=== PATIENT | female | born 1960 | race Caucasian/White ===

== ENCOUNTER → 2016-05-16 | Outpatient (CLI) | payer MEDICARE, OTHER ==
--- NOTE | 2016-05-16 09:26 | XR ---
EXAMINATION TYPE: XR ankle complete LT DATE OF EXAM: 05/16/2016 9:21 AM COMPARISON: NONE HISTORY: Pain Achilles tendon burning sensation Three views of the ankle demonstrate the ankle mortise to be intact and symmetric. The joint spaces are preserved. The osseous structures are intact. There are plantar calcaneal spurs and a spur at t he insertion of the Achilles tendon. IMPRESSION: 1. Calcaneal spurs as discussed above.
== END | disposition home or self-care (01) ==
LOC: RADXRMAIN 09:10
PROVIDERS: ATTEND Physician Assistant
DX: M77.32 Calcaneal spur, left foot (principal)

== ENCOUNTER → 2016-07-15 | Outpatient (CLI) | payer MEDICARE, OTHER ==
--- NOTE | 2016-07-18 08:35 | MM ---
Reason for exam: screening (asymptomatic). Last mammogram was performed 1 year and 1 month ago. Physical Findings: A clinical breast exam by your physician is recommended on an annual basis and results should be correlated with mammographic findings. MG 3D Screening Mammo W/Cad Bilateral CC and MLO view(s) were taken. Prior study comparison: June 18, 2015, bilateral MG screening mammo w CAD. June 16, 2014, bilateral MG screening mammo w CAD. December 07, 2011, mammogram, performed at [facility]. There are scattered fibroglandular densities. There is no discrete abnormality. ASSESSMENT: Negative, BI-RAD 1 RECOMMENDATION: Routine screening mammogram of both breasts in 1 year.
== END | disposition home or self-care (01) ==
LOC: RADMAMWWP 09:03
PROVIDERS: ATTEND Family Medicine
DX: Z12.31 Encounter for screening mammogram for malignant neoplasm of breast (principal)
CPT/HCPCS: 77063; G0202

== ENCOUNTER → 2016-08-12 | Outpatient (CLI) | payer MEDICARE, OTHER ==
--- NOTE | 2016-08-12 09:00 | CT ---
EXAMINATION TYPE: CT brain wo con DATE OF EXAM: 08/12/2016 8:01 AM COMPARISON: NONE HISTORY: Rt arm tremor CT DLP: 1090.4 mGycm Automated exposure control for dose reduction was used. FINDINGS: There is age-related degenerative change. Central structures are midline. There is no evidence of hydrocephalus. No acute focal lesion, mass ef fect or midline shift is seen. I do not see evidence of intracranial blood. Visualized portions of the paranasal sinuses and mastoids are clear. No depressed skull fracture is s een. IMPRESSION: NO ACUTE INTRACRANIAL ABNORMALITY.
== END | disposition home or self-care (01) ==
LOC: RADCTMAIN 07:36
PROVIDERS: ATTEND Family Medicine
DX: G25.2 Other specified forms of tremor (principal)
CPT/HCPCS: 70450

== ENCOUNTER → 2016-10-20 | Outpatient (CLI) | payer MEDICARE, OTHER ==
--- NOTE | 2016-10-21 07:25 | NM ---
EXAMINATION TYPE: NM DatScan Brain SPECT DATE OF EXAM: 10/20/2016 COMPARISON: CT brain dated 08/12/2016 HISTORY: 56-year-old female with tremors. TECHNIQUE: 10 drops of Lugol's solution was administered 1 hour prior to injection as a thyroid bloc jerry agent. After the administration of 4.71 mCi I-123 Ioflupane DaTscan. Images obtained 3 hours p ost injection. SPECT images of the brain were acquired with axial and coronal reconstructions. FINDINGS: The DaTSCAN demonstrates normal uptake of tracer throughout the striata. Consequently there is no evidence of loss of the presynaptic dopaminergic terminals on this investiga tion. IMPRESSION: Normal examination is against a diagnosis of idiopathic Parkinson's disease or Parkinsonian syndrome and is seen in healthy individuals and also patients with essential tremor, drug-induced Parkinsonism and vascular pseudo-parkinsonism.
== END | disposition home or self-care (01) ==
LOC: RADNMMAIN 09:44
PROVIDERS: ATTEND Psychiatry & Neurology Neurology
DX: G25.0 Essential tremor (principal)
CPT/HCPCS: 78607; A9584

== ENCOUNTER → 2016-10-25 | Outpatient (CLI) | payer MEDICARE, OTHER ==
--- NOTE | 2016-10-25 20:28 | PN ---
DATE OF SERVICE: 10/25/2016 This patient is coming in for an annual check regarding obstructive sleep apnea. She had moderate to severe obstructive sleep apnea with an AHI of 16. The patient was being treated with CPAP at a pressure of 12 cm of water. Note that initially at the time of her diagnosis her weight was 209. She had gained weight, and at one point she was up to 221; this was essentially last year. She is using a Mediterranean diet and she is down to 199 pounds. She is feeling better. She is still using her CPAP. She is compliant. She has been averaging more than 6 hours of CPAP use every night without any complaints or difficulties. No major hypersomnia or sleepiness during the day. She is utilizing a Simplus full-face mask. Alert and awake during the day. Does not fall asleep during day-to-day activities or while driving. Sleep quality remains good. She has no specific complaints. She is obtaining her CPAP supplies on a regular basis through her DME. Her current [place] score is down to 4. Meanwhile, no new-onset medical problems or comorbidities. She was noted to develop some tremors, and she is being considered for primary essential tremors. BP is 145/59, pulse 108, respiration 16, temperature 99.0, saturation 94% on room air. Weight is 199. Height is 5 feet 3 inches. Neck size is 15 inches. GENERAL APPEARANCE: Calm, comfortable. HEENT: Negative for JVD. No goiter or neck mass. LUNGS: Clear to auscultation. Heart sounds are regular rate and rhythm. Normal S1, S2. ABDOMEN: Soft, non-tender. No organomegaly. EXTREMITIES: No edema. No cyanosis or clubbing. IMPRESSION: 1. Obstructive sleep apnea, moderate in severity; AHI of 16; still on CPAP at a pressure of 12 cm of water. 2. Obesity with interval weight loss. Current body weight is down to 199 pounds. 3. Tremors, under investigation. 4. Hyperlipidemia. 5. Chronic hypersomnia, improved. [place] score is down to 4. 6. Chronic depression. 7. Osteoarthritis. PLAN: No need for any adjustments in her CPAP machine. Encourage losing more weight. Target weight is around 170. Continue the same diet. Will hopefully have a reevaluation in a year's time regarding her KATHERYN. MAURI
== END | disposition home or self-care (01) ==
LOC: SLEEP 13:14
PROVIDERS: ATTEND Internal Medicine Critical Care Medicine
DX: G47.33 Obstructive sleep apnea (adult) (pediatric) (principal); E66.9 Obesity, unspecified; E78.5 Hyperlipidemia, unspecified; F32.9 Major depressive disorder, single episode, unspecified; M19.90 Unspecified osteoarthritis, unspecified site; R63.4 Abnormal weight loss

== ENCOUNTER → 2016-12-21 | Outpatient (CLI) | payer MEDICARE, OTHER ==
--- NOTE | 2016-12-21 22:55 | XR ---
EXAMINATION TYPE: XR hand complete LT DATE OF EXAM: 12/21/2016 COMPARISON: NONE HISTORY: 56-year-old female with left hand pain TECHNIQUE: 3 views FINDINGS: Moderate degenerative change at the first CMC joint. Additional degenerative changes at the triscaphe joint with a 3 mm loose body or fragmented spur along the radial aspect of the scaphoid trapezial serenity int. No acute fracture, subluxation, or dislocation. IMPRESSION: Osteoarthritic change at the base of the thumb and in the triscaphe joint. There is either a 3 mm loo se body or fragmented spur here.
== END ==
LOC: RADXRMAIN 16:56
PROVIDERS: ATTEND Family Medicine
DX: M19.042 Primary osteoarthritis, left hand (principal)

== ENCOUNTER → 2017-06-19 | Outpatient (CLI) | payer MEDICARE, OTHER ==
[2017-06-19 10:00] LABS: Basophils % (A) 0 %; Eosinophils # (A) 0.2 k/uL (0-0.7); Eosinophils % (A) 2 %; HCT 44.4 % (34.0-46.0); HGB 14.6 gm/dL (11.4-16.0); Lymphocytes # (A) 2.1 k/uL (1.0-4.8); Lymphocytes % (A) 18 %; MCH 31.2 pg (25.0-35.0); MCHC 32.9 g/dL (31.0-37.0); MCV 94.9 fL (80.0-100.0); Mean Platelet Volume 8.8; Monocytes # (A) 0.6 k/uL (0-1.0); Monocytes % (A) 5 %; Neutrophils # (A) 8.2 k/uL (1.3-7.7); Neutrophils % (A) 73 %; Platelet Count 218 k/uL (150-450); RBC 4.68 m/uL (3.80-5.40); RDW 13.5 % (11.5-15.5); WBC 11.3 k/uL (3.8-10.6)
[2017-06-19 10:18] LABS: ALT 17 U/L (9-52); AST 14 U/L (14-36)
== END | disposition home or self-care (01) ==
LOC: LABWHC1 09:43
PROVIDERS: ATTEND Physician Assistant Medical
DX: L30.1 Dyshidrosis [pompholyx] (principal); B35.1 Tinea unguium
CPT/HCPCS: 36415; 84450; 84460; 85025

== ENCOUNTER → 2017-09-13 | Outpatient (CLI) | payer MEDICARE, OTHER ==
--- NOTE | 2017-09-14 10:33 | MM ---
Reason for exam: screening (asymptomatic). Last mammogram was performed 1 year and 2 months ago. History: Patient is postmenopausal. Physical Findings: A clinical breast exam by your physician is recommended on an annual basis and results should be correlated with mammographic findings. MG 3D Screening Mammo W/Cad Bilateral CC and MLO view(s) were taken. Prior study comparison: July 15, 2016, bilateral MG 3d screening mammo w/cad. June 18, 2015, bilateral MG screening mammo w CAD. There are scattered fibroglandular densities. There is no discrete abnormality. No significant changes when compared with prior studies. ASSESSMENT: Negative, BI-RAD 1 RECOMMENDATION: Routine screening mammogram of both breasts in 1 year.
== END | disposition home or self-care (01) ==
LOC: RADMAMWWP 13:01
PROVIDERS: ATTEND Family Medicine
DX: Z12.31 Encounter for screening mammogram for malignant neoplasm of breast (principal)
CPT/HCPCS: 77063; 77067

== ENCOUNTER 2017-11-07 16:01 | Emergency (ER) | payer MEDICARE, OTHER ==
[2017-11-07 16:20] VITALS: RESP 18
--- NOTE | 2017-11-07 17:55 | ED ---
Extremity Problem HPI - General Chief complaint: Extremity Problem,Nontraumatic Stated complaint: Leg Swelling Time Seen by Provider: 11/07/17 17:13 Source: patient, RN notes reviewed Mode of arrival: ambulatory Limitations: no limitations - History of Present Illness Initial comments: This is a 57-year-old female who presents to the emergency department with chief complaint of right foot and leg swelling. Patient states that 2 days ago she noticed that her right foot was swollen. She states that today she has noticed that the swelling is progressing up her calf. She reports a tightening and pressure-like sensation but denies any pain. She denies any injuries or trauma. She states that she has never had a DVT or pulmonary embolism. She states that she takes a daily baby aspirin, but no blood thinners. Patient denies fevers or chills, chest pain or shortness of breath, abdominal pain, nausea or vomiting. - Related Data Home Medications Medication Instructions Recorded Confirmed Aspirin 81 mg PO DAILY 02/07/14 11/07/17 Simvastatin [Zocor] 20 mg PO HS 02/07/14 11/07/17 Ziprasidone [Geodon] 40 mg PO BID 02/07/14 11/07/17 Cyanocobalamin [Vitamin B-12] 1,000 mcg SQ Q30D 02/01/15 11/07/17 ALPRAZolam [Xanax] 0.5 mg PO DAILY PRN 11/07/17 11/07/17 Albuterol Inhaler [Ventolin Hfa 2 puff INHALATION RT-Q6H PRN 11/07/17 11/07/17 Inhaler] Betamethasone Dipropionate 1 applic TOPICAL DAILY PRN 11/07/17 11/07/17 [Diprolene AF 0.05% Cream] Dicyclomine HCl 20 mg PO BID 11/07/17 11/07/17 Fluticasone/Salmeterol [Advair 1 puff INHALATION RT-BID 11/07/17 11/07/17 250-50 Diskus] Lisinopril [Zestril] 5 mg PO DAILY 11/07/17 11/07/17 Mesalamine [Delzicol] 800 mg PO BID 11/07/17 11/07/17 Omeprazole 40 mg PO DAILY 11/07/17 11/07/17 Propranolol HCl 20 mg PO BID 11/07/17 11/07/17 Terbinafine HCl [LamISIL] 250 mg PO HS 11/07/17 11/07/17 buPROPion HCL [Wellbutrin SR] 200 mg PO BID 11/07/17 11/07/17 lamoTRIgine [LaMICtal] 100 mg PO BID 11/07/17 11/07/17 traZODone HCL 50 mg PO HS 11/07/17 11/07/17 Allergies Allergy/AdvReac Type Severity Reaction Status Date / Time codeine Allergy Rash/Hives Verified 11/07/17 17:07 ibuprofen [From Motrin] Allergy Nausea & Verified 11/07/17 17:07 Vomiting Penicillins Allergy Rash/Hives Verified 11/07/17 17:07 Sulfa (Sulfonamide Allergy Rash/Hives Verified 11/07/17 17:07 Antibiotics) Review of Systems ROS Statement: Those systems with pertinent positive or pertinent negative responses have been documented in the HPI. ROS Other: All systems not noted in ROS Statement are negative. Past Medical History Past Medical History: Asthma, GERD/Reflux, GI Bleed, Sleep Apnea/CPAP/BIPAP Additional Past Medical History / Comment(s): hx internal hemorrhoid. No CPAP machine History of Any Multi-Drug Resistant Organisms: None Reported Past Surgical History: Hysterectomy Past Anesthesia/Blood Transfusion Reactions: No Reported Reaction Past Psychological History: Anxiety, Depression Smoking Status: Current every day smoker Past Alcohol Use History: None Reported Past Drug Use History: None Reported General Exam - General Exam Comments Initial Comments: General: Awake and alert, well-developed; in no apparent distress. HEENT: Head atraumatic, normocephalic. Pupils are equal, round and reactive to light. Extraocular movements intact. Oropharynx moist without erythema or exudate. Neck: Supple. Normal ROM. Cardiovascular: Regular rate and rhythm. No murmurs, rubs or gallops. Chest symmetrical. Respiratory: Lungs clear to auscultation bilaterally. No wheezes, rales or rhonchi. Normal respiratory effort with no use of accessory muscles. Musculoskeletal: Normal range of motion of the right lower extremity. There is 1+ pitting pedal edema with non-pitting swelling noted to the right calf. No erythema, ecchymosis or tenderness on palpation. Negative Homans sign. Left lower extremity appears normal without edema. Sensation is intact. Pedal pulses are 2+ equal and palpable bilaterally. Skin: [place], warm and dry without rashes or lesions. Neurological: Alert and oriented x3. CN II-XII grossly intact. Speech is fluent and answers are appropriate. No focal neuro deficits. Psychiatric: Normal mood and affect. No overt signs of depression or anxiety noted. Limitations: no limitations Course Vital Signs 11/07/17 16:18 Temperature 99.5 F Pulse Rate 94 Respiratory 18 Rate Blood Pressure 137/70 O2 Sat by Pulse 94 L Oximetry Medical Decision Making - Medical Decision Making This is a 57-year-old female who presents to the emergency department with chief complaint of right foot and lower extremity swelling. Patient reports her right foot became swollen 2 days ago and that the swelling has progressively moved up her leg. She reports no pain. She describes the sensation as tight. Denies any injuries or trauma. On physical examination, there is 1+ pitting edema to the foot with mild non-pitting edema to the right calf. No warmth, erythema, tenderness on palpation. Ultrasound venous Doppler duplex revealed no evidence for an acute DVT. Patient denies fevers or chills, chest pain or shortness of breath, abdominal pain. She is recommended to follow -up with her primary care provider for further evaluation. She is in agreement with plan and voices understanding. Vitals are stable and she is in no acute distress. She will be discharged home at this time. All questions answered. Disposition Clinical Impression: Leg edema, right Disposition: HOME SELF-CARE Condition: Good Instructions: Leg Edema (ED) Additional Instructions: Please follow up with primary care provider within 1-2 days. Return to emergency department if symptoms should worsen or any concerns arise. Is patient prescribed a controlled substance at d/c from ED?: No Referrals: None,Stated [Primary Care Provider] - 1-2 days Time of Disposition: 19:36
--- NOTE | 2017-11-07 19:21 | US ---
EXAMINATION TYPE: US venous doppler duplex LE RT DATE OF EXAM: 11/07/2017 6:09 PM COMPARISON: NONE CLINICAL HISTORY: edema, nontraumatic. Right leg edema. SIDE PERFORMED: Right TECHNIQUE: The lower extremity deep venous system is examined utilizing real time linear array sonog ron with graded compression, doppler sonography and color-flow sonography. VESSELS IMAGED: External Iliac Vein (EIV) Common Femoral Vein Deep Femoral Vein Greater Saphenous Vein * Femoral Vein Popliteal Vein Small Saphenous Vein * Proximal Calf Veins (* superficial vessels) FINDINGS: Grayscale, color doppler, spectral doppler imaging performed of the deep veins of the lower extremities. There is normal flow, compressibility, vascular waveforms. IMPRESSION: NEGATIVE FOR DVT RIGHT LOWER EXTREMITY.
[2017-11-07 19:51] VITALS: BP 150/88; PULSE 68; TEMP 98
== END 2017-11-07 19:51 | disposition home or self-care (01) ==
LOC: EC 16:01
DX: R60.0 Localized edema (principal); J45.909 Unspecified asthma, uncomplicated; K21.9 Gastro-esophageal reflux disease without esophagitis; F32.9 Major depressive disorder, single episode, unspecified; F41.9 Anxiety disorder, unspecified; F17.200 Nicotine dependence, unspecified, uncomplicated; Z79.51 Long term (current) use of inhaled steroids; Z79.82 Long term (current) use of aspirin; Z79.899 Other long term (current) drug therapy; Z87.19 Personal history of other diseases of the digestive system; Z88.0 Allergy status to penicillin; Z88.2 Allergy status to sulfonamides; Z88.5 Allergy status to narcotic agent; Z88.6 Allergy status to analgesic agent
CPT/HCPCS: 99283

== ENCOUNTER → 2017-11-15 | Outpatient (CLI) | payer MEDICARE, OTHER ==
--- NOTE | 2017-11-15 16:36 | PN ---
PROGRESS NOTE Velia is coming in for an annual check regarding obstructive sleep apnea. She was diagnosed having mild KATHERYN with an AHI of 16 and she is utilizing a Simplus full face mask. Over the past 1 year the patient remained very compliant with CPAP therapy and she is wearing it every night and she continues to benefit from treatment sleep quality remains good and she is refreshed during the day. Based on the compliancy data that was collected over the past 30 days, her CPAP use for more than 4 hours is 100% of the time. Leak factor is 25 L/minutes. AHI is down to 0.4 while on treatment. She is using a Simplus full face mask. She has absolutely no complaints for now. She is on psychotropic medications. Got bipolar disorder which includes a combination of Geodon and Wellbutrin and Lamictal and Xanax and trazodone. She also has a history of COPD as the patient is chronic smoker. I have taken care of this patient's sister and her mother was Dr. Ko's patient and from complications of COPD. Her weight is down by around 7 pounds. She used to maintain diet and currently she is not doing any dieting and unfortunately she is drinking an excess amount of soda and she has some edema lower extremities bilaterally. REVIEW OF SYSTEMS: 12-point review of system was done. Positive findings are mentioned above history of present illness. No major hypersomnia or sleepiness during the day. Snoring has completely subsided. No restlessness in lower extremities. No nightmares. No sleep paralysis, hallucinations or cataplexy. PHYSICAL EXAMINATION: BP is 140/62, pulse 82, respirations 18, temperature 98.1, saturation 94% on room air. Weight is 192, height is 5 feet 2 inches, [place] score is 5, BMI 34.5. GENERAL APPEARANCE: Calm, comfortable. Head is atraumatic, normocephalic. NECK: Supple. No JVD. No goiter or neck masses. Mallampati class IV. LUNGS: Clear to auscultation. HEART: Sounds are regular. Normal S1, S2. No S3, S4. No murmurs. ABDOMEN: Soft, nontender. No organomegaly. EXTREMITIES: No edema. No cyanosis or clubbing. IMPRESSION: 1. Obstructive sleep apnea [id number], AHI of 16, continues to be under successful treatment. 2. Obesity with interval 7 pounds weight loss. Current weight is down to 192. 3. Chronic obstructive pulmonary disease on Advair. 4. Smoker. 5. Hyperlipidemia. 6. Tremors. 7. Chronic depression. 8. Osteoarthritis. PLAN: Continue CPAP therapy at same level of pressure which is 12 cm of water. Keep the same mask interface, encourage weight loss. See me back in the pulmonary clinic regarding her COPD. MMODL / IJN: [id number] /
== END ==
LOC: SLEEP 14:01
PROVIDERS: ATTEND Internal Medicine Critical Care Medicine
DX: G47.33 Obstructive sleep apnea (adult) (pediatric) (principal); E66.9 Obesity, unspecified; J44.9 Chronic obstructive pulmonary disease, unspecified; E78.5 Hyperlipidemia, unspecified; R25.1 Tremor, unspecified; F32.9 Major depressive disorder, single episode, unspecified; M19.90 Unspecified osteoarthritis, unspecified site; Z87.891 Personal history of nicotine dependence; Z99.89 Dependence on other enabling machines and devices

== ENCOUNTER → 2018-08-02 | Outpatient (CLI) | payer MEDICARE, OTHER ==
[2018-08-02 09:40] LABS: Basophils # (A) 0.1 k/uL (0-0.2); Basophils % (A) 1 %; Eosinophils # (A) 0.1 k/uL (0-0.7); Eosinophils % (A) 1 %; HCT 45.5 % (34.0-46.0); HGB 14.5 gm/dL (11.4-16.0); Lymphocytes # (A) 1.9 k/uL (1.0-4.8); Lymphocytes % (A) 19 %; MCH 31.3 pg (25.0-35.0); MCHC 31.7 g/dL (31.0-37.0); MCV 98.5 fL (80.0-100.0); Mean Platelet Volume 9.3; Monocytes # (A) 0.6 k/uL (0-1.0); Monocytes % (A) 6 %; Neutrophils # (A) 7.3 k/uL (1.3-7.7); Neutrophils % (A) 72 %; Platelet Count 177 k/uL (150-450); RBC 4.62 m/uL (3.80-5.40); RDW 14.2 % (11.5-15.5)
[2018-08-02 16:39] LABS: Albumin 3.6 g/dL (3.80-4.90); Albumin/Globulin Ratio 2.77 (1.60-3.17); Anion Gap 4.2 mmol/L (4.00-12.00); Calcium 8.6 mg/dL (8.7-10.3); Carbon Dioxide 28.8 mmol/L (21.6-31.8); Globulin 1.3 g/dL (1.6-3.3); LDL Cholesterol,Calculated 111.8 mg/dL (0.0-131.0); Potassium 4.4 mmol/L (3.5-5.5); Total Bilirubin 0.3 mg/dL (0.2-1.2); Total Protein 4.9 g/dL (6.2-8.2); VLDL Calculation 28.2 mg/dL (5.00-40.00)
[2018-08-02 16:40] LABS: Vitamin D 25 Hydroxy 35.7 ng/mL (30.0-100.0)
== END | disposition home or self-care (01) ==
LOC: LABWHC1 08:35
PROVIDERS: ATTEND Family Medicine
DX: E78.5 Hyperlipidemia, unspecified (principal); J44.9 Chronic obstructive pulmonary disease, unspecified; E55.9 Vitamin D deficiency, unspecified; E53.8 Deficiency of other specified B group vitamins
CPT/HCPCS: 36415; 80053; 80061; 82306; 82607; 85025

== ENCOUNTER → 2018-10-01 | Outpatient (CLI) | payer MEDICARE, OTHER ==
--- NOTE | 2018-10-02 10:20 | MM ---
Reason for exam: screening (asymptomatic). Last mammogram was performed 1 year and 1 month ago. History: Patient is postmenopausal. Family history of breast cancer in maternal cousin at age 48. Took hormonal contraceptives for 8 years. Physical Findings: A clinical breast exam by your physician is recommended on an annual basis and results should be correlated with mammographic findings. MG 3D Screening Mammo W/Cad Bilateral CC and MLO view(s) were taken. Prior study comparison: September 13, 2017, bilateral MG 3d screening mammo w/cad. July 15, 2016, bilateral MG 3d screening mammo w/cad. There are scattered fibroglandular densities. There is no discrete abnormality. ASSESSMENT: Negative, BI-RAD 1 RECOMMENDATION: Routine screening mammogram of both breasts in 1 year.
== END | disposition home or self-care (01) ==
LOC: RADMAMWWP 08:03
PROVIDERS: ATTEND Family Medicine
DX: Z12.31 Encounter for screening mammogram for malignant neoplasm of breast (principal)
CPT/HCPCS: 77063; 77067

== ENCOUNTER → 2019-02-13 | Outpatient (CLI) | payer MEDICARE, OTHER ==
[2019-02-13 09:12] LABS: Basophils # (A) 0.1 k/uL (0-0.2); Basophils % (A) 1 %; Eosinophils # (A) 0.1 k/uL (0-0.7); Eosinophils % (A) 2 %; HCT 44.8 % (34.0-46.0); HGB 14.2 gm/dL (11.4-16.0); Lymphocytes # (A) 2.4 k/uL (1.0-4.8); Lymphocytes % (A) 25 %; MCH 31.6 pg (25.0-35.0); MCHC 31.8 g/dL (31.0-37.0); Mean Platelet Volume 8.1; Monocytes # (A) 0.6 k/uL (0-1.0); Monocytes % (A) 6 %; Neutrophils # (A) 6.1 k/uL (1.3-7.7); Neutrophils % (A) 65 %; Platelet Count 197 k/uL (150-450); RDW 13.7 % (11.5-15.5); WBC 9.4 k/uL (3.8-10.6)
[2019-02-13 09:31] LABS: MCV 99.5 fL (80.0-100.0)
[2019-02-13 16:28] LABS: African American GFR (CKD) 71.4 (60.0-200.0); Albumin 3.6 g/dL (3.80-4.90); Albumin/Globulin Ratio 2.57 (1.60-3.17); Anion Gap 5.2 mmol/L (4.00-12.00); Calcium 9.2 mg/dL (8.7-10.3); Carbon Dioxide 27.8 mmol/L (21.6-31.8); Chol/HDL Ratio 7.04; Globulin 1.4 g/dL (1.6-3.3); LDL Cholesterol,Calculated 110.8 mg/dL (0.0-131.0); Non-African American GFR(CKD) 61.6 (60.0-200.0); Potassium 4.9 mmol/L (3.5-5.5); Total Bilirubin 0.3 mg/dL (0.2-1.2); VLDL Calculation 58.2 mg/dL (5.00-40.00)
== END | disposition home or self-care (01) ==
LOC: LABWHC1 07:04
PROVIDERS: ATTEND Family Medicine
DX: E53.8 Deficiency of other specified B group vitamins (principal); E78.5 Hyperlipidemia, unspecified; D69.2 Other nonthrombocytopenic purpura
CPT/HCPCS: 36415; 80053; 80061; 82607; 84443; 85025

== ENCOUNTER 2019-05-11 19:50 | Emergency (ER) | payer MEDICARE, OTHER ==
[2019-05-11] MEDS ORDERED: SODIUM CHLORIDE 0.9% 500 ML 500 ML IV STA (20:46)
[2019-05-11] MEDS ORDERED: LORazepam 2 MG/ML INJ IV STA (20:46)
[2019-05-11] MEDS ORDERED: METOPROLOL SUCCINATE (ER) 25 MG TAB.ER.24H PO STA (20:47)
--- NOTE | 2019-05-11 20:51 | ED ---
General Adult HPI - General Chief complaint: Arrhythmia/Palpitations Stated complaint: Tachycardia Time Seen by Provider: 05/11/19 20:34 Source: patient Mode of arrival: wheelchair Limitations: no limitations - History of Present Illness Initial comments: Patient presents the ED stating that she ran out of her propanolol 2 days ago, and she states that she has had an elevated heart rate since then. Patient states that she was taking propanolol 20 mg BID for tremors. Patient states that she only knows that her heart rate is elevated because of readings on her blood pressure machine. Patient also states that she had an elevated systolic blood pressure reading (in the 160's) 2 days ago. Patient admits to feeling anxious and "shaky". Patient denies having any other symptoms or complaints. Patient denies fever, headache, focal numbness/weakness/neuro deficit, visual changes, speech problems, dizziness, chest pain, dyspnea, palpitations, abd ominal pain, nausea/vomiting/diarrhea, dysuria or urinary symptoms, leg or calf swelling or pain, or any other symptoms or complaints. Patient denies EtOH or drug abuse. - Related Data Home Medications Medication Instructions Recorded Confirmed Aspirin 81 mg PO DAILY 02/07/14 11/07/17 Simvastatin [Zocor] 20 mg PO HS 02/07/14 11/07/17 Ziprasidone [Geodon] 40 mg PO BID 02/07/14 11/07/17 Cyanocobalamin [Vitamin B-12] 1,000 mcg SQ Q30D 02/01/15 11/07/17 ALPRAZolam [Xanax] 0.5 mg PO DAILY PRN 11/07/17 11/07/17 Albuterol Inhaler [Ventolin Hfa 2 puff INHALATION RT-Q6H PRN 11/07/17 11/07/17 Inhaler] Betamethasone Dipropionate 1 applic TOPICAL DAILY PRN 11/07/17 11/07/17 [Diprolene AF 0.05% Cream] Dicyclomine HCl 20 mg PO BID 11/07/17 11/07/17 Fluticasone/Salmeterol [Advair 1 puff INHALATION RT-BID 11/07/17 11/07/17 250-50 Diskus] Lisinopril [Zestril] 5 mg PO DAILY 11/07/17 11/07/17 Mesalamine [Delzicol] 800 mg PO BID 11/07/17 11/07/17 Omeprazole 40 mg PO DAILY 11/07/17 11/07/17 Propranolol HCl 20 mg PO BID 11/07/17 11/07/17 Terbinafine HCl [LamISIL] 250 mg PO HS 11/07/17 11/07/17 buPROPion HCL [Wellbutrin SR] 200 mg PO BID 11/07/17 11/07/17 lamoTRIgine [LaMICtal] 100 mg PO BID 11/07/17 11/07/17 traZODone HCL 50 mg PO HS 11/07/17 11/07/17 Allergies Allergy/AdvReac Type Severity Reaction Status Date / Time Penicillins Allergy Rash/Hives Verified 11/07/17 17:07 Sulfa (Sulfonamide Allergy Rash/Hives Verified 11/07/17 17:07 Antibiotics) codeine AdvReac Nausea & Verified 05/11/19 20:06 Vomiting ibuprofen [From Motrin] AdvReac Nausea & Verified 05/11/19 20:06 Vomiting Review of Systems ROS Statement: Those systems with pertinent positive or pertinent negative responses have been documented in the HPI. ROS Other: All systems not noted in ROS Statement are negative. Past Medical History Past Medical History: Asthma, GERD/Reflux, GI Bleed, Hyperlipidemia, Sleep Apnea/CPAP/BIPAP Additional Past Medical History / Comment(s): hx internal hemorrhoid. No CPAP machine. colitis, IBS History of Any Multi-Drug Resistant Organisms: None Reported Past Surgical History: Hysterectomy Past Anesthesia/Blood Transfusion Reactions: No Reported Reaction Past Psychological History: Anxiety, Bipolar, Depression Smoking Status: Current every day smoker Past Alcohol Use History: None Reported Past Drug Use History: None Reported General Exam Limitations: no limitations General appearance: alert, in no apparent distress Head exam: Present: atraumatic, normocephalic Eye exam: Present: normal appearance, PERRL, EOMI ENT exam: Present: mucous membranes moist Neck exam: Present: other (Trachea is in midline). Absent: tenderness Respiratory exam: Present: normal lung sounds bilaterally. Absent: respiratory distress, wheezes, rales, rhonchi Cardiovascular Exam: Present: normal rhythm, tachycardia, normal heart sounds, other (Normal radial pulses bilaterally) GI/Abdominal exam: Present: soft. Absent: distended, tenderness Extremities exam: Present: other (Negative Dangelo's sign bilaterally). Absent: tenderness, pedal edema, calf tenderness Neurological exam: Present: alert, oriented X3, CN II-XII intact. Absent: motor sensory deficit Psychiatric exam: Present: anxious Skin exam: Present: warm, dry, intact, normal color Course Vital Signs 05/11/19 05/11/19 05/11/19 20:04 20:33 21:00 Temperature 98.3 F Pulse Rate 127 H 126 H 126 H Respiratory 18 Rate Blood Pressure 150/73 142/63 137/70 O2 Sat by Pulse 94 L 96 91 L Oximetry 05/11/19 05/11/19 05/11/19 21:20 21:30 21:40 Temperature Pulse Rate 124 H 122 H 120 H Respiratory Rate Blood Pressure 141/109 131/62 131/62 O2 Sat by Pulse 95 95 93 L Oximetry 05/11/19 05/11/19 21:50 22:31 Temperature Pulse Rate 116 H 112 H Respiratory 20 Rate Blood Pressure 120/67 112/87 O2 Sat by Pulse 92 L 99 Oximetry - Reevaluation(s) Reevaluation #1: 05/11/19 23:07 Patient's heart rate has now improved to the 110s. Patient denies development of any new symptoms while in the ED, and she continues to state that she feels "fine". Patient remains alert and breathing comfortably with a normal oxygen saturation. Patient states that her heart rate is normally in the low 100s. Thong maddox is aware of her test results, and she feels comfortable going home at this time. EKG Findings - EKG Comments: EKG Findings:: Sinus tachycardia, ventricular rate of 121 bpm, normal SC and QRS intervals, normal QT interval, no ectopy, leftward axis, no ST or T-wave abnormality Medical Decision Making - Medical Decision Making Patient reports that her elevated heart rate began after she abruptly stopped taking her propanolol secondary to running out of it. I suspect that the patient's elevated heart rate is likely secondary to beta tyler withdrawal. Patient was given a dose of oral metoprolol while in the ED. Patient's labs are fairly unremarkable. I will provide the patient with a prescription for 1 week's worth of her propanolol, and she states that she will be certain to follow-up with her primary care provider early next week. Patient was counseled about sinus tachycardia, and she was clearly explained return and follow-up instructions. She was instructed to follow up closely with her primary care provider. She feels comfortable with this plan. - Lab Data Result diagrams: 05/11/19 20:31 05/11/19 20:31 Lab Results 05/11/19 05/11/19 05/11/19 Range/Units 20:31 20:31 20:31 WBC 11.9 H (3.8-10.6) k/uL RBC 4.87 (3.80-5.40) m/uL Hgb 14.9 (11.4-16.0) gm/dL Hct 46.2 H (34.0-46.0) % MCV 94.9 (80.0-100.0) fL MCH 30.6 (25.0-35.0) pg MCHC 32.3 (31.0-37.0) g/dL RDW 13.5 (11.5-15.5) % Plt Count 251 (150-450) k/uL Neutrophils % 63 % Lymphocytes % 26 % Monocytes % 7 % Eosinophils % 1 % Basophils % 0 % Neutrophils # 7.5 (1.3-7.7) k/uL Lymphocytes # 3.2 (1.0-4.8) k/uL Monocytes # 0.9 (0-1.0) k/uL Eosinophils # 0.1 (0-0.7) k/uL Basophils # 0.0 (0-0.2) k/uL PT 10.4 (9.0-12.0) sec INR 1.0 (<1.2) APTT 22.9 (22.0-30.0) sec Sodium 136 L (137-145) mmol/L Potassium 4.4 (3.5-5.1) mmol/L Chloride 107 (98-107) mmol/L Carbon Dioxide 24 (22-30) mmol/L Anion Gap 5 mmol/L BUN 11 (7-17) mg/dL Creatinine 1.03 (0.52-1.04) mg/dL Est GFR (CKD-EPI)AfAm 69 (>60 ml/min/1.73 sqM) Est GFR (CKD-EPI)NonAf 60 (>60 ml/min/1.73 sqM) Glucose 119 H (74-99) mg/dL Calcium 9.0 (8.4-10.2) mg/dL Magnesium 1.6 (1.6-2.3) mg/dL Total Bilirubin 0.8 (0.2-1.3) mg/dL AST 23 (14-36) U/L ALT 9 (4-34) U/L Alkaline Phosphatase 57 (38-126) U/L Troponin I (0.000-0.034) ng/mL Total Protein 6.0 L (6.3-8.2) g/dL Albumin 3.5 (3.5-5.0) g/dL TSH 1.710 (0.465-4.680) mIU/L 05/11/19 Range/Units 20:31 WBC (3.8-10.6) k/uL RBC (3.80-5.40) m/uL Hgb (11.4-16.0) gm/dL Hct (34.0-46.0) % MCV (80.0-100.0) fL MCH (25.0-35.0) pg MCHC (31.0-37.0) g/dL RDW (11.5-15.5) % Plt Count (150-450) k/uL Neutrophils % % Lymphocytes % % Monocytes % % Eosinophils % % Basophils % % Neutrophils # (1.3-7.7) k/uL Lymphocytes # (1.0-4.8) k/uL Monocytes # (0-1.0) k/uL Eosinophils # (0-0.7) k/uL Basophils # (0-0.2) k/uL PT (9.0-12.0) sec INR (<1.2) APTT (22.0-30.0) sec Sodium (137-145) mmol/L Potassium (3.5-5.1) mmol/L Chloride (98-107) mmol/L Carbon Dioxide (22-30) mmol/L Anion Gap mmol/L BUN (7-17) mg/dL Creatinine (0.52-1.04) mg/dL Est GFR (CKD-EPI)AfAm (>60 ml/min/1.73 sqM) Est GFR (CKD-EPI)NonAf (>60 ml/min/1.73 sqM) Glucose (74-99) mg/dL Calcium (8.4-10.2) mg/dL Magnesium (1.6-2.3) mg/dL Total Bilirubin (0.2-1.3) mg/dL AST (14-36) U/L ALT (4-34) U/L Alkaline Phosphatase (38-126) U/L Troponin I <0.012 (0.000-0.034) ng/mL Total Protein (6.3-8.2) g/dL Albumin (3.5-5.0) g/dL TSH (0.465-4.680) mIU/L - Radiology Data Radiology results: image reviewed (Chest x-ray is negative) Disposition Clinical Impression: Sinus tachycardia Narrative: Suspected medication withdrawal Disposition: HOME SELF-CARE Condition: Stable Instructions (If sedation given, give patient instructions): Heart Palpitations (ED) Additional Instructions: Return to the ER immediately should you develop any significant pain, a fever, chest pain, shortness of breath, vomiting, feeling dizzy or faint, or new or worsening symptoms. Follow up closely with your primary care provider. Is patient prescribed a controlled substance at d/c from ED?: No Referrals: Amol Orellana [Primary Care Provider] - 1-2 days Time of Disposition: 23:11
--- NOTE | 2019-05-11 21:07 | XR ---
EXAMINATION TYPE: XR chest 2V DATE OF EXAM: 05/11/2019 COMPARISON: 12/26/2017 HISTORY: Short of breath Dysrhythmia TECHNIQUE: FINDINGS: There is small linear density in both lung mandel. Heart is normal. Lungs are clear of infi ltrate. There is no pleural effusion. There is no heart failure. There are chest leads. IMPRESSION: Bilateral subsegmental atelectasis unchanged. Normal heart.
[2019-05-11 21:08] LABS: Basophils % (A) 0 %; Eosinophils # (A) 0.1 k/uL (0-0.7); Eosinophils % (A) 1 %; HCT 46.2 % (34.0-46.0); HGB 14.9 gm/dL (11.4-16.0); Lymphocytes # (A) 3.2 k/uL (1.0-4.8); Lymphocytes % (A) 26 %; MCH 30.6 pg (25.0-35.0); MCHC 32.3 g/dL (31.0-37.0); MCV 94.9 fL (80.0-100.0); Mean Platelet Volume 10.4; Monocytes # (A) 0.9 k/uL (0-1.0); Monocytes % (A) 7 %; Neutrophils # (A) 7.5 k/uL (1.3-7.7); Neutrophils % (A) 63 %; Platelet Count 251 k/uL (150-450); RBC 4.87 m/uL (3.80-5.40); RDW 13.5 % (11.5-15.5); WBC 11.9 k/uL (3.8-10.6)
[2019-05-11 21:21] LABS: Albumin 3.5 g/dL (3.5-5.0); Magnesium 1.6 mg/dL (1.6-2.3); Potassium 4.4 mmol/L (3.5-5.1); Total Bilirubin 0.8 mg/dL (0.2-1.3)
[2019-05-11 21:30] LABS: Partial Thromboplastin Time 22.9 sec (22.0-30.0); Prothrombin Time 10.4 sec (9.0-12.0)
[2019-05-11 23:46] VITALS: BP 114/61; PULSE 110; RESP 16; TEMP 98.1
== END 2019-05-11 23:30 | disposition home or self-care (01) ==
LOC: EC 19:50
DX: R00.0 Tachycardia, unspecified (principal); R00.2 Palpitations; E78.5 Hyperlipidemia, unspecified; G47.30 Sleep apnea, unspecified; J45.909 Unspecified asthma, uncomplicated; K21.9 Gastro-esophageal reflux disease without esophagitis; F41.9 Anxiety disorder, unspecified; F31.9 Bipolar disorder, unspecified; F17.200 Nicotine dependence, unspecified, uncomplicated; Z79.51 Long term (current) use of inhaled steroids; Z79.82 Long term (current) use of aspirin; Z79.899 Other long term (current) drug therapy; Z88.0 Allergy status to penicillin; Z88.2 Allergy status to sulfonamides; Z88.5 Allergy status to narcotic agent; Z88.6 Allergy status to analgesic agent
CPT/HCPCS: 36415; 71046; 80053; 83735; 84443; 84484; 85025; 85610; 85730; 93005; 99285

== ENCOUNTER → 2020-07-20 | Outpatient (CLI) | payer MEDICARE, OTHER ==
--- NOTE | 2020-07-20 12:44 | ECHOF ---
Referral Reason: MEASUREMENTS -------- HEIGHT: 157.5 cm WEIGHT: 95.3 kg BP: RVIDd: 2.6 cm (< 3.3) IVSd: 1.2 cm (0.6 - 1.1) LVIDd: 4.8 cm (3.9 - 5.3) LVPWd: 1.4 cm (0.6 - 1.1) IVSs: 1.9 cm LVIDs: 2.4 cm LVPWs: 2.2 cm LAESV Index (A-L): 18.32 ml/m Ao Diam: 3.5 cm (2.0 - 3.7) AV Cusp: 2.3 cm (1.5 - 2.6) LA Diam: 3.8 cm (2.7 - 3.8) MV EXCURSION: 24.295 mm (> 18.000) MV EF SLOPE: 56 mm/s (70 - 150) EPSS: 1.1 cm MV E Thomas: 0.74 m/s MV DecT: 307 ms MV A Thomas: 1.08 m/s MV E/A Ratio: 0.68 AR PHT: 507 ms RAP: 5.00 mmHg RVSP: 16.22 mmHg FINDINGS -------- This was a technically good study. The left ventricular size is normal. There is mild concentric left ventricular hypertrophy. Overa ll left ventricular systolic function is normal with, an EF between 55 - 60 %. The diastolic fillin g pattern is normal for the age of the patient 10.38. The right ventricle is normal in size. The left atrial size is normal. Normal LA size by volume 22+/-6 ml/m2. The right atrial size is normal. The aortic valve is trileaflet and appears structurally normal. The mitral valve is normal. Mild mitral regurgitation is present. The tricuspid valve appears structurally normal. Mild tricuspid regurgitation present. Right vent ricular systolic pressure is normal at < 35 mmHg. There is no pulmonic regurgitation present. The aortic root size is normal. Normal inferior vena cava with normal inspiratory collapse consistent with estimated right atrial pre ssure of 5 mmHg. There is no pericardial effusion. CONCLUSIONS -------- 1. The left ventricular size is normal. 2. There is mild concentric left ventricular hypertrophy. 3. Overall left ventricular systolic function is normal with, an EF between 55 - 60 %. 4. The diastolic filling pattern is normal for the age of the patient 10.38 5. Mild mitral regurgitation is present. 6. Mild tricuspid regurgitation present. 7. There is no pericardial effusion. [employer] MANAGER: Chichi Daniels RDCS
== END | disposition home or self-care (01) ==
LOC: RADECHMAIN 11:06
PROVIDERS: ATTEND Family Medicine
DX: I08.1 Rheumatic disorders of both mitral and tricuspid valves (principal)
CPT/HCPCS: 93306

== ENCOUNTER → 2021-02-25 | Outpatient (CLI) | payer MEDICARE, OTHER ==
--- NOTE | 2021-02-26 13:53 | MM ---
Reason for exam: screening (asymptomatic). Last mammogram was performed 2 years and 5 months ago. History: Patient is postmenopausal. Family history of breast cancer in maternal cousin at age 48. Took hormonal contraceptives for 8 years. Physical Findings: A clinical breast exam by your physician is recommended on an annual basis and results should be correlated with mammographic findings. MG 3D Screening Mammo W/Cad Bilateral CC and MLO view(s) were taken. Prior study comparison: October 01, 2018, bilateral MG 3d screening mammo w/cad. September 13, 2017, bilateral MG 3d screening mammo w/cad. There are scattered fibroglandular densities. There is no discrete abnormality. No significant changes when compared with prior studies. ASSESSMENT: Negative, BI-RAD 1 RECOMMENDATION: Routine screening mammogram of both breasts in 1 year.
== END | disposition home or self-care (01) ==
LOC: RADMAMWWP 06:57
PROVIDERS: ATTEND Family Medicine
DX: Z12.31 Encounter for screening mammogram for malignant neoplasm of breast (principal); Z78.0 Asymptomatic menopausal state; Z80.3 Family history of malignant neoplasm of breast
CPT/HCPCS: 77063; 77067

== ENCOUNTER → 2021-09-06 | Outpatient (CLI) | payer MEDICARE, OTHER ==
[2021-09-06 15:11] LABS: Appearance,Urine Cloudy (Clear); Bacteria,Urine Few /hpf; Bilirubin,Urine Negative (Negative); Blood,Urine Trace (Negative); Color,Urine Light Yellow; Glucose,Urine (UA) Negative (Negative); Ketones,Urine Negative (Negative); Leukocyte Esterase,Urine Large (Negative); Mucus,Urine Rare /hpf; Nitrite,Urine Negative (Negative); PH, Urine 5.5 (5.0-8.0); Protein,Urine Trace (Negative); RBC,Urine 10 /hpf (0-5); Specific Gravity,Urine 1.004 (1.001-1.035); Squamous Epithelial Cell,Urine <1 /hpf (0-4); Urobilinogen,Urine <2.0 mg/dL (<2.0); WBC,Urine >182 /hpf (0-5)
[2021-09-06 18:53] LABS: Albumin 3.7 g/dL (3.8-4.9); Basophils # (A) 0.05 X 10*3/uL (0.00-0.10); Basophils % (A) 0.5 %; Eosinophils # (A) 0.11 X 10*3/uL (0.04-0.35); Eosinophils % (A) 1.1 %; Ferritin 36.1 ng/mL (10.0-291.0); HCT 44.5 % (37.2-46.3); HGB 13.8 g/dL (12.0-15.0); Immature Grans, Automated 0.6 %; Lymphocytes % (A) 23.6 %; MCH 30.5 pg (27.0-32.0); MCV 98.2 fL (80.0-97.0); Mean Platelet Volume 12.9 fL (9.5-12.2); Monocytes # (A) 0.93 X 10*3/uL (0.20-1.00); Monocytes % (A) 9.2 %; NRBC Per 100 WBC 0 /100 WBCS (0.0-0.0); Neutrophils # (A) 6.61 X 10*3/uL (1.80-7.70); Platelet Count 203 X 10*3/uL (140-440); RBC 4.53 X 10*6/uL (4.10-5.20); RDW 14.3 % (11.5-14.5); WBC 10.16 X 10*3/uL (4.50-10.00)
[2021-09-06 19:12] LABS: % Iron Saturation 13.46 (12.00-45.00); BUN/Creat Ratio 11.56 Ratio (12.00-20.00)
[2021-09-06 19:13] LABS: African American GFR (CKD) 51.9 (60.0-200.0); Blood Urea Nitrogen 14.8 mg/dL (9.0-27.0); Calcium 8.9 mg/dL (8.7-10.3); Carbon Dioxide 24.5 mmol/L (20.0-27.5); Magnesium 1.9 mg/dL (1.5-2.4); Non-African American GFR(CKD) 44.8 (60.0-200.0); Potassium 4.3 mmol/L (3.5-5.5); Uric Acid 6.1 mg/dL (2.9-7.7)
--- NOTE | 2021-09-06 19:51 | US ---
EXAMINATION TYPE: US kidneys/renal and bladder DATE OF EXAM: 09/06/2021 COMPARISON: NONE CLINICAL HISTORY: N18.32 KIDNEY DISEASE STAGE 3B. EXAM MEASUREMENTS: Right Kidney: 22.9 x 12.3 x 9.6 cm Left Kidney: 11.1 x 5.2 x 5.2 cm Right Kidney: large kidney with irregular borders, there appears to be an inferior vascular mass yecenia uring 15.4 x 11.8 x 11.8cm, lobular contour Left Kidney: multiple cysts, largest two measuring 3.7 x 3.4 x 3.8cm and 4.1 x 3.0 x 3.2cm Bladder: wnl Incidental findings of gallstones and comet tail artifact in gallbladder wall. Enlarged liver. IMPRESSION: 1. Enlarged right irregular appearing kidney large mass measures up to 15 cm. Additional workup for n eoplasm is recommended lower pole right kidney. 2. Simple appearing left renal cysts. 3. Hepatomegaly. 4. Cholelithiasis. Adenomyomatosis may be present as well.
[2021-09-06 19:53] LABS: Urine Creatinine 33.6 mg/dL (28.0-217.0)
== END | disposition home or self-care (01) ==
LOC: RADUSWWP 13:37
PROVIDERS: ATTEND Internal Medicine Nephrology
DX: N18.32 Chronic kidney disease, stage 3b (principal); N28.1 Cyst of kidney, acquired; K80.20 Calculus of gallbladder without cholecystitis without obstruction; R16.0 Hepatomegaly, not elsewhere classified
CPT/HCPCS: 76770; 80048; 81001; 82040; 82043; 82306; 82570; 82728; 83540; 83550; 83735; 83970; 84100; 84550; 85025

== ENCOUNTER → 2021-09-15 | Outpatient (CLI) | payer MEDICARE, OTHER ==
--- NOTE | 2021-09-15 08:55 | CT ---
EXAMINATION TYPE: CT chest abdomen wo con DATE OF EXAM: 09/15/2021 COMPARISON: No previous CT scan is available for comparison. Ultrasound dated 09/06/2021. HISTORY: Renal Mass CT DLP: 996.5 mGycm Automated exposure control for dose reduction was used. TECHNIQUE: Multiple CT scan of the chest and abdomen without IV contrast administration. FINDINGS: Suboptimal CT scan due to the lack of IV contrast administration. There is indeed a very large hetero geneous mass centered over the right kidney. The mass roughly measures 15 x 23 cm. It is highly papo rning for a large renal cell carcinoma. There is apparent enlargement of the right renal vein with ma rked dilatation of the adjacent portion of the IVC demonstrating increased density within, highly con cerning for tumoral thrombosis. Extension into the left renal vein cannot be excluded. Significant vasculature is seen surrounding the tumor with surrounding fat stranding. Suspected multi ple variable-sized retroperitoneal metastatic lymph nodes/nodules measuring up to 4 cm. The bowel are displaced by the large mass. Multiple various sized left renal cysts without suspicious feature, sub optimally assessed by this nonenhanced CT scan. Left lingular linear atelectasis. Grossly unremarkable lungs otherwise patent trachea and main bronch i. No pleural or pericardial effusion. No gross cardiomegaly. The pulmonary trunk measures 3.4 cm, sal ggestive of pulmonary hypertension. Arterial atherosclerotic calcifications. No pathologically enlarg ed lymph nodes in the chest. No definite hepatic focal lesion by this nonenhanced CT scan. Cholelithiasis without evidence of acut e cholecystitis. Unremarkable unenhanced CT appearance of the spleen and pancreas. 2 left adrenal nod ules measuring 17 mm and 24 mm respectively, suboptimally assessed by this CT scan. The right adrenal is suboptimally assessed. Unremarkable stomach. The duodenum is displaced and inseparable from the described right renal mass. No evidence of small bowel obstruction. No gross colonic mass. Significant collateral vessels are see n in the right side of the abdomen. No sizable ascites. No gross aggressive bone lesion. IMPRESSION: Large right renal mass as described above concerning for RCC with suspected invasion into the IVC and retroperitoneal metastatic lymph nodes/nodules as detailed above, suboptimally assessed by this unen hanced CT scan. Recommend further enhanced CT scan of the abdomen and pelvis. No evidence of metastatic disease in th e chest or the visualized bones. Still further bone scan or PET scan assessment can be considered. Ot her findings as described above. A [facility] level critical message alert has been initiated for Lexx Higuera MD via the [employer] Critical Results System on 09/15/2021 8:53 AM. This message alert has been sent to Abilio Barry via the preferences provided by the clinician for the receipt of Radiology Critical Findings. Coco [employer] ID [id number].
== END | disposition home or self-care (01) ==
LOC: RADCTMAIN 06:40
PROVIDERS: ATTEND Urology
DX: N28.9 Disorder of kidney and ureter, unspecified (principal)
CPT/HCPCS: 71250; 74150

== ENCOUNTER 2022-07-03 08:51 | Inpatient (IN) | payer MEDICARE, OTHER ==
[2022-07-03] MEDS ORDERED: SODIUM CHLORIDE 0.9% 500 ML 500 ML IV STA (09:07)
--- NOTE | 2022-07-03 09:09 | ED ---
General Adult HPI - General Chief complaint: Shortness of Breath Stated complaint: shortness of breath Time Seen by Provider: 07/03/22 08:58 Source: patient, RN notes reviewed Mode of arrival: EMS Limitations: no limitations - History of Present Illness Initial comments: Patient is a pleasant 59-year-old female presenting to the emergency department with concerns with dyspnea. Onset of symptoms was the past 2 days. Patient has minimal cough. No chest pain. No fever. Patient does have decreased appetite. Patient is currently under treatment including infusion and oral medication for renal cancer. Patient did have nephrectomy. No leg pain or leg swelling. - Related Data Home Medications Medication Instructions Recorded Confirmed Aspirin 81 mg PO DAILY 02/07/14 11/07/17 Simvastatin [Zocor] 20 mg PO HS 02/07/14 11/07/17 Ziprasidone [Geodon] 40 mg PO BID 02/07/14 11/07/17 Cyanocobalamin [Vitamin B-12] 1,000 mcg SQ Q30D 02/01/15 11/07/17 ALPRAZolam [Xanax] 0.5 mg PO DAILY PRN 11/07/17 11/07/17 Albuterol Inhaler [Ventolin Hfa 2 puff INHALATION RT-Q6H PRN 11/07/17 11/07/17 Inhaler] Betamethasone Dipropionate 1 applic TOPICAL DAILY PRN 11/07/17 11/07/17 [Diprolene AF 0.05% Cream] Dicyclomine HCl 20 mg PO BID 11/07/17 11/07/17 Fluticasone Propion/Salmeterol 1 puff INHALATION RT-BID 11/07/17 11/07/17 [Advair 250-50 Diskus] Mesalamine [Delzicol] 800 mg PO BID 11/07/17 11/07/17 Omeprazole 40 mg PO DAILY 11/07/17 11/07/17 Propranolol HCl 20 mg PO BID 11/07/17 11/07/17 buPROPion HCL [Wellbutrin SR] 200 mg PO BID 11/07/17 11/07/17 lamoTRIgine [LaMICtal] 100 mg PO BID 11/07/17 11/07/17 lisinopriL [Zestril] 5 mg PO DAILY 11/07/17 11/07/17 terbinafine HCL [LamISIL] 250 mg PO HS 11/07/17 11/07/17 traZODone HCL 50 mg PO HS 11/07/17 11/07/17 Previous Rx's Medication Instructions Recorded Propranolol [Inderal] 20 mg PO BID #14 tab 05/11/19 Allergies Allergy/AdvReac Type Severity Reaction Status Date / Time Penicillins Allergy Rash/Hives Verified 07/03/22 08:58 Sulfa (Sulfonamide Allergy Rash/Hives Verified 07/03/22 08:58 Antibiotics) codeine AdvReac Nausea & Verified 07/03/22 08:58 Vomiting ibuprofen [From Motrin] AdvReac Nausea & Verified 07/03/22 08:58 Vomiting Review of Systems ROS Statement: Those systems with pertinent positive or pertinent negative responses have been documented in the HPI. ROS Other: All systems not noted in ROS Statement are negative. Constitutional: Denies: fever, chills Eyes: Denies: eye pain ENT: Denies: ear pain Respiratory: Reports: as per HPI, dyspnea Cardiovascular: Denies: chest pain Endocrine: Reports: fatigue Gastrointestinal: Denies: abdominal pain Genitourinary: Denies: dysuria Musculoskeletal: Denies: back pain Skin: Denies: rash Neurological: Denies: weakness Past Medical History Past Medical History: Asthma, GERD/Reflux, GI Bleed, Hyperlipidemia, Sleep Apnea/CPAP/BIPAP Additional Past Medical History / Comment(s): hx internal hemorrhoid. No CPAP machine. colitis, IBS History of Any Multi-Drug Resistant Organisms: None Reported Past Surgical History: Hysterectomy Past Anesthesia/Blood Transfusion Reactions: No Reported Reaction Past Psychological History: Anxiety, Bipolar, Depression Smoking Status: Never smoker Past Alcohol Use History: None Reported Past Drug Use History: None Reported General Exam Limitations: no limitations General appearance: alert, in no apparent distress Head exam: Present: normocephalic Eye exam: Present: normal appearance ENT exam: Present: normal oropharynx Neck exam: Present: normal inspection Respiratory exam: Present: normal lung sounds bilaterally Cardiovascular Exam: Present: regular rate, normal rhythm GI/Abdominal exam: Present: soft. Absent: tenderness Extremities exam: Present: normal inspection. Absent: pedal edema, calf tenderness Neurological exam: Present: alert Psychiatric exam: Present: normal affect, normal mood Skin exam: Present: normal color Course Vital Signs 07/03/22 07/03/22 07/03/22 08:55 09:00 09:33 Temperature 97.2 F L Pulse Rate 95 96 93 Respiratory 22 24 24 Rate Blood Pressure 90/23 77/29 84/58 O2 Sat by Pulse 87 L 88 L 91 L Oximetry 07/03/22 10:00 Temperature Pulse Rate 87 Respiratory 18 Rate Blood Pressure 71/31 O2 Sat by Pulse 97 Oximetry EKG Findings - EKG Results: EKG: interpreted by ERMD (Left axis.), sinus rhythm, normal QRS, normal ST/T Medical Decision Making - Medical Decision Making Was pt. sent in by a medical professional or institution (, PA, [employer], urgent care, hospital, or senior living...) When possible be specific @ -No Did you speak to anyone other than the patient for history (EMS, parent, family, police, friend...)? What history was obtained from this source @ -No Did you review nursing and triage notes (agree or disagree)? Why? @ -I reviewed and agree with nursing and triage notes Were old charts reviewed (outside hosp., previous admission, EMS record, old EKG, old radiological studies, urgent care reports/EKG's, senior living records)? Report findings @ -No old charts were reviewed Differential Diagnosis (chest pain, altered mental status, abdominal pain women, abdominal pain men, vaginal bleeding, weakness, fever, dyspnea, syncope, headache, dizziness, GI bleed, back pain, seizure, CVA, palpatations, mental health)? @ -Differential Dyspnea: Coronary syndrome, arrhythmia, tamponade, asthma, COPD, pulmonary embolism, pneumonia, pneumothorax, pulmonary effusion, anaphylaxis, diabetic ketoacidosis, flailed chest, pulmonary contusion, diaphragmatic rupture, anemia, neuromuscular, this is not meant to be an all-inclusive list. EKG interpreted by me (3pts min.). @ -As above X-rays interpreted by me (1pt min.). @ -Chest x-ray without acute abnormality CT interpreted by me (1pt min.). @ -None done U/S interpreted by me (1pt. min.). @ -None done What testing was considered but not performed or refused? (CT, X-rays, U/S, labs)? Why? @ -Considered computed tomography scan however patient has acute injury. Perfusion scan will be ordered What meds were considered but not given or refused? Why? @ -None Did you discuss the management of the patient with other professionals (professionals i.e. , PA, [employer], lab, RT, psych nurse, social services director, technical applications scientist, teacher, cavalry officer, pillowcase cutter)? Give summary @ -Case was discussed with Dr. Pineda, who will admit cover Dr. Saenz. He is aware of pending perfusion scan. Was smoking cessation discussed for >3mins.? @ -No Was critical care preformed (if so, how long)? @ -32 minutes critical care time Were there social determinants of health that impacted care today? How? (Homelessness, low income, unemployed, alcoholism, drug addiction, transportation, low edu. Level, literacy, decrease access to med. care, fdc, rehab)? @ -No Was there de-escalation of care discussed even if they declined (Discuss DNR or withdrawal of care, Hospice)? DNR status @ -No What co-morbidities impacted this encounter? (DM, HTN, Smoking, COPD, CAD, Cancer, CVA, ARF, Chemo, Hep., AIDS, mental health diagnosis, sleep apnea, morbid obesity)? @ -Patient has previous renal cancer and nephrectomy Was patient admitted / discharged? Hospital course, mention meds given and route, prescriptions, significant lab abnormalities, going to OR and other pertinent info. @ -Patient remains hypotensive. Patient has new acute kidney injury and will need further fluids and nephrology evaluation. VQ scan ordered and pending. Undiagnosed new problem with uncertain prognosis? @ - Acute kidney injury with uncertain etiology and prognosis Drug Therapy requiring intensive monitoring for toxicity (Heparin, Nitro, Insulin, Cardizem)? @ -No Were any procedures done? @ -No Diagnosis/symptom? @ -Acute kidney injury, dyspnea Acute, or Chronic, or Acute on Chronic? @ -Acute, acute Uncomplicated (without systemic symptoms) or Complicated (systemic symptoms)? @ -Kidney injury Located with hyperkalemia Side effects of treatment? @ -No Exacerbation, Progression, or Severe Exacerbation? @ -No Poses a threat to life or bodily function? How? (Chest pain, [place], [place], pneumonia, PE, COPD, DKA, ARF, appy, cholecystitis, CVA, Diverticulitis, Homicidal, Suicidal, threat to staff... and all critical care pts) @ -Threat to remaining kidney with potential for dialysis if worsens. - Lab Data Result diagrams: 07/03/22 09:14 07/03/22 09:14 Lab Results 07/03/22 07/03/22 07/03/22 Range/Units 09:14 09:14 09:14 WBC 12.0 H (3.8-10.6) k/uL RBC 5.01 (3.80-5.40) m/uL Hgb 15.7 (11.4-16.0) gm/dL Hct 48.9 H (34.0-46.0) % MCV 97.5 (80.0-100.0) fL MCH 31.3 (25.0-35.0) pg MCHC 32.1 (31.0-37.0) g/dL RDW 15.8 H (11.5-15.5) % Plt Count 468 H (150-450) k/uL MPV 8.0 Neutrophils % 83 % Lymphocytes % 14 % Monocytes % 2 % Eosinophils % 1 % Basophils % 0 % Neutrophils # 9.9 H (1.3-7.7) k/uL Lymphocytes # 1.7 (1.0-4.8) k/uL Monocytes # 0.3 (0-1.0) k/uL Eosinophils # 0.1 (0-0.7) k/uL Basophils # 0.0 (0-0.2) k/uL PT 10.5 (9.0-12.0) sec INR 1.0 (<1.2) APTT 24.1 (22.0-30.0) sec D-Dimer 1.46 H (<0.60) mg/L FEU Sodium 135 L (137-145) mmol/L Potassium 5.7 H (3.5-5.1) mmol/L Chloride 106 (98-107) mmol/L Carbon Dioxide 12 L (22-30) mmol/L Anion Gap 17 mmol/L BUN 46 H (7-17) mg/dL Creatinine 4.45 H (0.52-1.04) mg/dL Est GFR (CKD-EPI)AfAm 11 (>60 ml/min/1.73 sqM) Est GFR (CKD-EPI)NonAf 10 (>60 ml/min/1.73 sqM) Glucose 118 H (74-99) mg/dL Plasma Lactic Acid Jimmy (0.7-2.0) mmol/L Calcium 8.3 L (8.4-10.2) mg/dL Magnesium 1.8 (1.6-2.3) mg/dL Total Bilirubin 0.8 (0.2-1.3) mg/dL AST 29 (14-36) U/L ALT 24 (4-34) U/L Alkaline Phosphatase 132 H (38-126) U/L Troponin I (0.000-0.034) ng/mL NT-Pro-B Natriuret Pep pg/mL Total Protein 7.1 (6.3-8.2) g/dL Albumin 3.3 L (3.5-5.0) g/dL Influenza Type A (PCR) (Not Detectd) Influenza Type B (PCR) (Not Detectd) RSV (PCR) (Not Detectd) SARS-CoV-2 (PCR) (Not Detectd) 07/03/22 07/03/22 07/03/22 Range/Units 09:14 09:14 09:14 WBC (3.8-10.6) k/uL RBC (3.80-5.40) m/uL Hgb (11.4-16.0) gm/dL Hct (34.0-46.0) % MCV (80.0-100.0) fL MCH (25.0-35.0) pg MCHC (31.0-37.0) g/dL RDW (11.5-15.5) % Plt Count (150-450) k/uL MPV Neutrophils % % Lymphocytes % % Monocytes % % Eosinophils % % Basophils % % Neutrophils # (1.3-7.7) k/uL Lymphocytes # (1.0-4.8) k/uL Monocytes # (0-1.0) k/uL Eosinophils # (0-0.7) k/uL Basophils # (0-0.2) k/uL PT (9.0-12.0) sec INR (<1.2) APTT (22.0-30.0) sec D-Dimer (<0.60) mg/L FEU Sodium (137-145) mmol/L Potassium (3.5-5.1) mmol/L Chloride (98-107) mmol/L Carbon Dioxide (22-30) mmol/L Anion Gap mmol/L BUN (7-17) mg/dL Creatinine (0.52-1.04) mg/dL Est GFR (CKD-EPI)AfAm (>60 ml/min/1.73 sqM) Est GFR (CKD-EPI)NonAf (>60 ml/min/1.73 sqM) Glucose (74-99) mg/dL Plasma Lactic Acid Jimmy 1.4 (0.7-2.0) mmol/L Calcium (8.4-10.2) mg/dL Magnesium (1.6-2.3) mg/dL Total Bilirubin (0.2-1.3) mg/dL AST (14-36) U/L ALT (4-34) U/L Alkaline Phosphatase (38-126) U/L Troponin I 0.014 (0.000-0.034) ng/mL NT-Pro-B Natriuret Pep 356 pg/mL Total Protein (6.3-8.2) g/dL Albumin (3.5-5.0) g/dL Influenza Type A (PCR) (Not Detectd) Influenza Type B (PCR) (Not Detectd) RSV (PCR) (Not Detectd) SARS-CoV-2 (PCR) (Not Detectd) 07/03/22 Range/Units 09:14 WBC (3.8-10.6) k/uL RBC (3.80-5.40) m/uL Hgb (11.4-16.0) gm/dL Hct (34.0-46.0) % MCV (80.0-100.0) fL MCH (25.0-35.0) pg MCHC (31.0-37.0) g/dL RDW (11.5-15.5) % Plt Count (150-450) k/uL MPV Neutrophils % % Lymphocytes % % Monocytes % % Eosinophils % % Basophils % % Neutrophils # (1.3-7.7) k/uL Lymphocytes # (1.0-4.8) k/uL Monocytes # (0-1.0) k/uL Eosinophils # (0-0.7) k/uL Basophils # (0-0.2) k/uL PT (9.0-12.0) sec INR (<1.2) APTT (22.0-30.0) sec D-Dimer (<0.60) mg/L FEU Sodium (137-145) mmol/L Potassium (3.5-5.1) mmol/L Chloride (98-107) mmol/L Carbon Dioxide (22-30) mmol/L Anion Gap mmol/L BUN (7-17) mg/dL Creatinine (0.52-1.04) mg/dL Est GFR (CKD-EPI)AfAm (>60 ml/min/1.73 sqM) Est GFR (CKD-EPI)NonAf (>60 ml/min/1.73 sqM) Glucose (74-99) mg/dL Plasma Lactic Acid Jimmy (0.7-2.0) mmol/L Calcium (8.4-10.2) mg/dL Magnesium (1.6-2.3) mg/dL Total Bilirubin (0.2-1.3) mg/dL AST (14-36) U/L ALT (4-34) U/L Alkaline Phosphatase (38-126) U/L Troponin I (0.000-0.034) ng/mL NT-Pro-B Natriuret Pep pg/mL Total Protein (6.3-8.2) g/dL Albumin (3.5-5.0) g/dL Influenza Type A (PCR) Not Detected (Not Detectd) Influenza Type B (PCR) Not Detected (Not Detectd) RSV (PCR) Not Detected (Not Detectd) SARS-CoV-2 (PCR) Not Detected (Not Detectd) Critical Care Time Critical Care Time: Yes Total Critical Care Time: 32 Disposition Clinical Impression: Dyspnea, EVERTON (acute kidney injury) Disposition: ADMITTED IP TO THIS HOSP Condition: Serious Is patient prescribed a controlled substance at d/c from ED?: No Referrals: Sylvester Saenz MD [Primary Care Provider] - 1-2 days Time of Disposition: 10:19
[2022-07-03 09:31] LABS: Basophils % (A) 0 %; Eosinophils # (A) 0.1 k/uL (0-0.7); Eosinophils % (A) 1 %; HCT 48.9 % (34.0-46.0); HGB 15.7 gm/dL (11.4-16.0); Lymphocytes # (A) 1.7 k/uL (1.0-4.8); Lymphocytes % (A) 14 %; MCH 31.3 pg (25.0-35.0); MCHC 32.1 g/dL (31.0-37.0); MCV 97.5 fL (80.0-100.0); Monocytes # (A) 0.3 k/uL (0-1.0); Monocytes % (A) 2 %; Neutrophils # (A) 9.9 k/uL (1.3-7.7); Neutrophils % (A) 83 %; Platelet Count 468 k/uL (150-450); RBC 5.01 m/uL (3.80-5.40); RDW 15.8 % (11.5-15.5)
--- NOTE | 2022-07-03 09:31 | XR ---
EXAMINATION TYPE: XR chest 2V DATE OF EXAM: 07/03/2022 COMPARISON: Chest x-ray May 11, 2019. Chest CT September 15, 2021 HISTORY: Shortness of breath TECHNIQUE: Frontal and lateral views of the chest are obtained. FINDINGS: Focal left mid lung linear scarring redemonstrated There is no suspicious focal air space o pacity, pleural effusion, or pneumothorax seen. The cardiac silhouette size is stable and within nor mal limits. The osseous structures are intact. IMPRESSION: Focal left midlung linear scarring redemonstrated. No new acute infiltrate.
[2022-07-03 09:41] LABS: Albumin 3.3 g/dL (3.5-5.0); Calcium 8.3 mg/dL (8.4-10.2); Total Bilirubin 0.8 mg/dL (0.2-1.3); Total Protein 7.1 g/dL (6.3-8.2)
[2022-07-03 09:43] LABS: Magnesium 1.8 mg/dL (1.6-2.3); Potassium 5.7 mmol/L (3.5-5.1)
[2022-07-03 09:53] LABS: Partial Thromboplastin Time 24.1 sec (22.0-30.0); Prothrombin Time 10.5 sec (9.0-12.0)
[2022-07-03] MEDS ORDERED: SODIUM CHLORIDE 0.9% 1,000 ML IV STA ×2 (09:56)
[2022-07-03] MEDS ORDERED: NALOXONE 0.4 MG/ML 1 ML VIAL IV PRN (10:21)
[2022-07-03] MEDS ORDERED: ACETAMINOPHEN TAB 325 MG TAB PO PRN (10:21)
[2022-07-03] MEDS ORDERED: PANTOPRAZOLE 40 MG/10 ML VIAL IV SCH (10:30)
[2022-07-03] MEDS ORDERED: SODIUM CHLORIDE 0.9% 500 ML 500 ML IV ONE (13:43)
--- NOTE | 2022-07-03 14:37 | NM ---
EXAMINATION TYPE: NM pul vent and perfuse DATE OF EXAM: 07/03/2022 COMPARISON: Chest radiograph 07/03/2022 HISTORY: Dyspnea TECHNIQUE: Utilizing inhalation of 63.9 mCi Tc 99m DTPA aerosol and intravenous injection of 4.87 mC i of Tc 99m MAA, ventilation and perfusion images are acquired post injection in multiple projections . FINDINGS: Normal radiotracer distribution is noted in the lungs. There is no evidence of mismatched defects. IMPRESSION: Pulmonary embolism absent.
[2022-07-03] MEDS ORDERED: ALPRAZolam 0.5 MG TAB PO PRN (14:41)
[2022-07-03] MEDS ORDERED: ALBUTEROL NEBULIZED 2.5 MG/3 ML INHALATION PRN (14:41)
--- NOTE | 2022-07-03 15:06 | P.HPIM ---
History of Present Illness H&P Date: 07/03/22 Patient is a 61-year-old female with PMH of right-sided renal cell cancer status post nephrectomy at [facility] in [place] on April 11, bipolar disorder/depression/anxiety, GERD, hypothyroidism, COPD, KATHERYN presents to the ED for worsening shortness of breath that has been ongoing since Monday. Patient reports progressively worsening shortness of breath, worse with exertion to the point she had to use her CPAP last night. When her symptoms continue to worsen this morning this prompted her to come to the ED. She denies any lower extremity swelling or orthopnea. She denies any chest pain. She does report a cough productive of yellow mucus. She reports a history of COPD for which she sees Dr. Acosta in the outpatient setting. She has noted that her O2 saturation at home usually ranges in the mid to high 80s and tops out in the low 90s. Of note, patient reports difficulty being extubated after her nephrectomy in March due to hypotension. She denies any headache, nausea or vomiting, fever or chills, palpitations, changes in urination or bowel habits. She reports a poor appetite. She denies any dizziness, numbness/weakness/tingling of the extremities. In the ED, she was noted to be hypotensive with BP as low as 71/31. Her respiratory rate was 24. She was tachycardic with heart rate in the 90s. She was saturating 87% on 2 L nasal cannula. CBC showed leukocytosis of 12 and platelet count of 468. Coagulation panel was within normal limits. D-dimer was 1.46. CMP showed sodium 135, potassium of 5.7, bicarb of 12, BUN of 46, creatinine of 4.45, glucose of 118, calcium of 8.3, alkaline phosphatase of 132 and albumin of 3.3. Troponin was 0.014. BNP was 356. Influenza, RSV and COVID-19 negative. VQ scan was negative for PE. Chest x-ray showed no infiltrate. EKG showed sinus rhythm with left anterior fascicular block, ventricular rate of 97. Patient is admitted for further workup and management of her symptoms. Pertinent positives and negatives as discussed in HPI, a complete review of systems was performed and all other systems are negative. General: non toxic, no distress, cachectic Derm: warm, dry Head: atraumatic, normocephalic, symmetric Eyes: EOMI, no lid lag, anicteric sclera Mouth: no lip lesion, mucus membranes moist Cardiovascular: Tachycardic, no murmur Lungs: Decreased breath sounds bilateral, no rhonchi, no rales , no accessory muscle use Abdominal: soft, nontender to palpation, no guarding, no appreciable organomegaly, surgical scar appreciated Ext: no gross muscle atrophy, no edema, no contractures Neuro: no focal neuro deficits Psych: Alert, oriented, appropriate affect Acute hypoxic respiratory failure with history of KATHERYN and COPD SIRS Acute kidney injury Hyperkalemia Metabolic acidosis Elevated d-dimer Chronic conditions: right-sided renal cell cancer status post nephrectomy at [facility] on April 11, bipolar disorder/depression/anxiety, GERD, hypothyroidism, COPD, KATHERYN Based on my assessment of this patient, this patient meets a high complexity level of care. I have reviewed the following sustainability consultant notes: None. I have reviewed the results of the following tests: CBC showed leukocytosis of 12 and platelet count of 468. Coagulation panel was within normal limits. D-dimer was 1.46. CMP showed sodium 135, potassium of 5.7, bicarb of 12, BUN of 46, creatinine of 4.45, glucose of 118, calcium of 8.3, alkaline phosphatase of 132 and albumin of 3.3. Troponin was 0.014. BNP was 356. Influenza, RSV and COVID-19 negative. VQ scan was negative for PE. I have ordered the following tests: Blood culture. UA with reflex to culture. Repeat CBC and BMP tomorrow morning. Renal US. I have discussed the care of this patient with the following independent historian: None. I have independently interpreted the following test below: Chest x-ray showed no infiltrate. EKG showed sinus rhythm with left anterior fascicular block, ventricular rate of 97 I have discussed the management of this patient with the following physician: The case was discussed with the ED physician and decision made to admit the patient for workup of hypotension and acute kidney injury along with hypoxia. This patient has a high risk of morbidity due to the following reasons: Patient has an acute diagnosis of hypoxia and hypotension that poses a threat to life or bodily function. She has a significant acute kidney injury and appears clinically dehydrated. In addition, she meets SIRS criteria with hypotension, tachycardia and leukocytosis. No obvious source of infection at this time. Patient reports a history of KATHERYN and COPD along with noted hypoxia via pulse ox at home. She does not appear to be in acute exacerbation. VQ scan is ruled out pulmonary embolus. Chest x-ray shows no acute infiltrate. Supplemental O2 to maintain O2 saturation greater than 92%. Pulmonology will be consulted for further management of this patient. She received 2 L normal saline in the ED. Obtain blood cultures along with urinalysis with reflex to culture. Hold propranolol. Continue normal saline at 130 mL per hour. Patient be started on telemetry monitoring. Renal ultrasound will be ordered. Hold mesalamine. Nephrology will be consulted. Elevated potassium likely related to hemolyzed specimen. Plans to repeat BMP tomorrow morning. Lovenox for DVT prophylaxis. Patient names her son Manjinder and daughter Carol decision maker if she can't make decisions for herself. Patient would like to be full code. Past Medical History Past Medical History: Asthma, GERD/Reflux, GI Bleed, Hyperlipidemia, Sleep Apnea/CPAP/BIPAP Additional Past Medical History / Comment(s): hx internal hemorrhoid. No CPAP machine. colitis, IBS History of Any Multi-Drug Resistant Organisms: None Reported Past Surgical History: Hysterectomy Past Anesthesia/Blood Transfusion Reactions: No Reported Reaction Past Psychological History: Anxiety, Bipolar, Depression Smoking Status: Never smoker Past Alcohol Use History: None Reported Past Drug Use History: None Reported Medications and Allergies Home Medications Medication Instructions Recorded Confirmed Type Ziprasidone [Geodon] 40 mg PO DAILY 02/07/14 07/03/22 History Cyanocobalamin [Vitamin B-12] 1,000 mcg SQ Q30D 02/01/15 07/03/22 History ALPRAZolam [Xanax] 0.5 mg PO DAILY PRN 11/07/17 07/03/22 History Albuterol Inhaler [Ventolin Hfa 2 puff INHALATION RT-Q6H PRN 11/07/17 07/03/22 History Inhaler] Dicyclomine HCl 20 mg PO TID 11/07/17 07/03/22 History Mesalamine [Delzicol] 800 mg PO TID 11/07/17 07/03/22 History Omeprazole 40 mg PO DAILY 11/07/17 07/03/22 History Propranolol HCl 20 mg PO BID 11/07/17 07/03/22 History Albuterol Nebulized [Ventolin 2.5 mg INHALATION RT-QID PRN 07/03/22 07/03/22 History Nebulized] Atorvastatin Calcium [Lipitor] 40 mg PO HS 07/03/22 07/03/22 History Cabozantinib S-Malate [Cabometyx] 40 mg PO DAILY@1500 07/03/22 07/03/22 History Fluticasone Propion/Salmeterol 1 puff INHALATION RT-BID 07/03/22 07/03/22 History [Advair 500-50 Diskus] Levothyroxine Sodium [Synthroid] 112 mcg PO DAILY@1500 07/03/22 07/03/22 History Multivitamins, Thera [Multivitamin 1 tab PO DAILY 07/03/22 07/03/22 History (formulary)] Nivolumab(Unknown Dose) 1 dose IV Q30D 07/03/22 07/03/22 History Ziprasidone [Geodon] 60 mg PO HS 07/03/22 07/03/22 History buPROPion HCL [Wellbutrin SR] 200 mg PO BID 07/03/22 07/03/22 History Allergies Allergy/AdvReac Type Severity Reaction Status Date / Time codeine Allergy Rash/Hives Verified 07/03/22 11:01 Penicillins Allergy Rash/Hives Verified 07/03/22 11:01 on feet Sulfa (Sulfonamide Allergy Rash/Hives Verified 07/03/22 11:01 Antibiotics) on feet ibuprofen [From Motrin] AdvReac Nausea & Verified 07/03/22 11:01 Vomiting Physical Exam Vitals: Vital Signs Temp Pulse Resp BP Pulse Ox 07/03/22 14:29 92 18 94/55 92 L 07/03/22 13:43 74/47 07/03/22 13:30 90 20 76/33 94 L 07/03/22 13:00 89/27 07/03/22 12:41 91 20 101/35 07/03/22 10:31 88 20 93/59 94 L 07/03/22 10:00 87 18 71/31 97 07/03/22 09:33 93 24 84/58 91 L 07/03/22 09:00 96 24 77/29 88 L 07/03/22 08:55 97.2 F L 95 22 90/23 87 L Intake and Output 07/03/22 07/03/2207/03/23 06:59 14:59 22:59 Other: Weight 56.699 kg Results CBC & Chem 7: 07/03/22 09:14 07/03/22 09:14 Labs: Abnormal Lab Results - Last 24 Hours (Table) 07/03/22 07/03/22 07/03/22 Range/Units 09:14 09:14 09:14 WBC 12.0 H (3.8-10.6) k/uL Hct 48.9 H (34.0-46.0) % RDW 15.8 H (11.5-15.5) % Plt Count 468 H (150-450) k/uL Neutrophils # 9.9 H (1.3-7.7) k/uL D-Dimer 1.46 H (<0.60) mg/L FEU Sodium 135 L (137-145) mmol/L Potassium 5.7 H (3.5-5.1) mmol/L Carbon Dioxide 12 L (22-30) mmol/L BUN 46 H (7-17) mg/dL Creatinine 4.45 H (0.52-1.04) mg/dL Glucose 118 H (74-99) mg/dL Calcium 8.3 L (8.4-10.2) mg/dL Alkaline Phosphatase 132 H (38-126) U/L Albumin 3.3 L (3.5-5.0) g/dL
[2022-07-03] MEDS: LEVOTHYROXINE 112 MCG TAB PO SCH (15:20)
[2022-07-03 16:00] LABS: Appearance,Urine Cloudy (Clear); Bacteria,Urine Rare /hpf; Bilirubin,Urine Negative (Negative); Blood,Urine Negative (Negative); Cellular Casts,Urine 1 /lpf (0); Color,Urine Yellow; Glucose,Urine (UA) Negative (Negative); Granular Casts,Urine 1 /lpf (0); Hyaline Casts,Urine 7 /lpf (0-2); Ketones,Urine Trace (Negative); Leukocyte Esterase,Urine Moderate (Negative); Mucus,Urine Rare /hpf; Nitrite,Urine Negative (Negative); PH, Urine 5.5 (5.0-8.0); Protein,Urine 1+ (Negative); Urobilinogen,Urine <2.0 mg/dL (<2.0); WBC,Urine 45 /hpf (0-5)
--- NOTE | 2022-07-03 21:23 | US ---
EXAMINATION TYPE: US renals and bladder DATE OF EXAM: 07/03/2022 COMPARISON: CT 09/15/2021, US 09/06/21 CLINICAL INDICATION: Female, 61 years old with history of EVERTON; Hx right kidney cancer with right kidn ey removed April 11, 2022. EVERTON per order. EXAM MEASUREMENTS: Right Kidney: Surgically absent. Left Kidney: 11.8 x 4.8 x 5.7 cm Right Kidney: Surgically absent. Left Kidney: Multiple anechoic areas seen. Largest two measured 1: 3.9 x 3.9 x 3.6 cm at the upper pole and 2: 4.3 x 4.0 x 3.0 cm at the mid-lower pole-this area appears slightly septated. Possible prominent collecting system, anechoic area seen medially: 3.7 x 1.6 x 0.8 cm. Bladder: Not distended, catheter is in place. Bilateral Jets seen: No IMPRESSION: No evidence of obstructive uropathy. Left renal cyst as seen on prior CT.
[2022-07-03] MEDS: ATORVASTATIN 40 MG TAB PO SCH (22:11)
[2022-07-03] MEDS: buPROPion SR 100 MG TABLET.ER PO SCH (22:12)
[2022-07-03] MEDS: ZIPRASIDONE 60 MG CAP PO SCH (22:12)
[2022-07-04] MEDS: methylPREDNISolone SOD SUCCI 125 MG/2 ML VIAL IV SCH ×5 (00:06→23:50)
[2022-07-04] MEDS ORDERED: IPRATROPIUM-ALBUTEROL 3 ML NEB INHALATION PRN (03:16)
--- NOTE | 2022-07-04 03:34 | P.CNPUL ---
History of Present Illness Consult date: 07/04/22 Requesting physician: Elda Larose Reason for consult: dyspnea, COPD Chief complaint: Shortness of breath History of present illness: I am seeing this patient today 07/04/2022 in new consultation for acute COPD exacerbation. Patient is a 61-year-old female with past medical history of mod erate COPD with an FEV1 60% of predicted, obstructive sleep apnea utilizing a CPAP of 12 cm H2O at bedtime, recent ex-smoker quitting March 21 of this year, right-sided renal carcinoma status post right nephrectomy receiving targeted therapy with Cabometyx and Nivolumab, hypothyroidism, GERD. Patient does follow with Dr. Acosta in outpatient setting for management of her COPD and KATHERYN. Patient presented to the emergency room yesterday evening with the chief complaint of shortness of breath starting approximately 2 days ago. Patient does report a productive cough approximately 1 week ago with yellow- green sputum production. Since then, patient denies any persistent cough, fevers, chills, chest pain, hemoptysis. Patient also denies any heart palpitations, lightheadedness, syncope, lower extremity swelling, orthopnea. She did report a "GI bug" approximately a week ago that involved nausea, vomiting, diarrhea. This has since stopped, although, patient reports recurrent diarrhea with her cancer medications. Denies abdominal pain. While in the emergency room, patient was hypotensive, with a blood pressure 70s over 40s, requiring fluid resuscitation with 2 L normal saline. Patient is currently sitting in bed, on 4 L nasal cannula, in no acute distress. She is oxygenating 100% with current FiO2. Patient actually states that she is feeling much better now. Chest x-ray on arrival showed some focal left midline linear scarring without any new acute infiltrates. Patient's d-dimer was elevated at 1.46 on arrival. Follow-up VQ scan was negative for pulmonary embolism. Patient's CBC on arrival showed some mild leukocytosis with a WBC count of 12, hemoglobin 15.7, hematocrit 48.9, platelets 460,000. BMP on arrival shows a sodium 135, potassium 5.7, chloride 106, serum CO2 12, BUN 46, creatinine 4.45, glucose 118. Renal ultrasound showed a surgically absent right kidney; no evidence of obstructive uropathy on the left; and a left renal cyst that was seen on prior CT. Normal saline is infusing at 50 ML's per hour. Troponin negative 1. NT proBNP was low at 306. Afebrile. Vital signs are currently stable. Review of Systems REVIEW OF SYSTEMS: CONSTITUTIONAL: Denies any recent significant weight loss or weight gain. EYES: Denies change in vision. EARS, NOSE, MOUTH, THROAT: Denies headaches, denies sore throat. CARDIOVASCULAR: Denies chest pain, palpitations or syncopal episodes. RESPIRATORY: See HPI GASTROINTESTINAL: See HPI GENITOURINARY: Denies hematuria, denies infections. MUSKULOSKELETAL: Denies pain, denies swelling. INTEGUMENTARY: Denies rash, denies eczema. NEUROLOGICAL: Denies recent memory loss, no recent seizure activity. PSYCHIATRIC: Denies anxiety, denies depression. HEMATOLOGIC/LYMPHATIC: Denies anemia, denies enlarged lymph node Past Medical History Past Medical History: Asthma, GERD/Reflux, Hyperlipidemia, Sleep Apnea/CPAP/BIPAP Additional Past Medical History / Comment(s): hx internal hemorrhoid, kidney CA with right nephrectomy, CPAP use, colitis, IBS History of Any Multi-Drug Resistant Organisms: None Reported Past Surgical History: Hysterectomy Additional Past Surgical History / Comment(s): right nephrectomy 04/11/22 Past Anesthesia/Blood Transfusion Reactions: No Reported Reaction Past Psychological History: Anxiety, Bipolar, Depression Smoking Status: Former smoker Past Alcohol Use History: None Reported Past Drug Use History: None Reported Medications and Allergies Home Medications Medication Instructions Recorded Confirmed Type Ziprasidone [Geodon] 40 mg PO DAILY 02/07/14 07/03/22 History Cyanocobalamin [Vitamin B-12] 1,000 mcg SQ Q30D 02/01/15 07/03/22 History ALPRAZolam [Xanax] 0.5 mg PO DAILY PRN 11/07/17 07/03/22 History Albuterol Inhaler [Ventolin Hfa 2 puff INHALATION RT-Q6H PRN 11/07/17 07/03/22 History Inhaler] Dicyclomine HCl 20 mg PO TID 11/07/17 07/03/22 History Mesalamine [Delzicol] 800 mg PO TID 11/07/17 07/03/22 History Omeprazole 40 mg PO DAILY 11/07/17 07/03/22 History Propranolol HCl 20 mg PO BID 11/07/17 07/03/22 History Albuterol Nebulized [Ventolin 2.5 mg INHALATION RT-QID PRN 07/03/22 07/03/22 History Nebulized] Atorvastatin Calcium [Lipitor] 40 mg PO HS 07/03/22 07/03/22 History Cabozantinib S-Malate [Cabometyx] 40 mg PO DAILY@1500 07/03/22 07/03/22 History Fluticasone Propion/Salmeterol 1 puff INHALATION RT-BID 07/03/22 07/03/22 History [Advair 500-50 Diskus] Levothyroxine Sodium [Synthroid] 112 mcg PO DAILY@1500 07/03/22 07/03/22 History Multivitamins, Thera [Multivitamin 1 tab PO DAILY 07/03/22 07/03/22 History (formulary)] Nivolumab(Unknown Dose) 1 dose IV Q30D 07/03/22 07/03/22 History Ziprasidone [Geodon] 60 mg PO HS 07/03/22 07/03/22 History buPROPion HCL [Wellbutrin SR] 200 mg PO BID 07/03/22 07/03/22 History Allergies Allergy/AdvReac Type Severity Reaction Status Date / Time codeine Allergy Rash/Hives Verified 07/03/22 11:01 Penicillins Allergy Rash/Hives Verified 07/03/22 11:01 on feet Sulfa (Sulfonamide Allergy Rash/Hives Verified 07/03/22 11:01 Antibiotics) on feet ibuprofen [From Motrin] AdvReac Nausea & Verified 07/03/22 11:01 Vomiting Physical Exam Vitals: Vital Signs Temp Pulse Pulse Resp BP BP BP 07/03/22 23:27 97.6 F 85 16 94/59 07/03/22 19:53 97.5 F L 84 18 93/65 07/03/22 18:28 97 F L 82 18 88/48 07/03/22 16:50 91/44 07/03/22 16:00 91 20 94/45 07/03/22 14:29 92 18 94/55 07/03/22 13:43 74/47 07/03/22 13:30 90 20 76/33 07/03/22 13:00 89/27 07/03/22 12:41 91 20 101/35 07/03/22 10:31 88 20 93/59 07/03/22 10:00 87 18 71/31 07/03/22 09:33 93 24 84/58 07/03/22 09:00 96 24 77/29 07/03/22 08:55 97.2 F L 95 22 90/23 Pulse Ox 07/03/22 23:27 98 07/03/22 19:53 98 07/03/22 18:28 100 07/03/22 16:50 07/03/22 16:00 92 L 07/03/22 14:29 92 L 07/03/22 13:43 07/03/22 13:30 94 L 07/03/22 13:00 07/03/22 12:41 07/03/22 10:31 94 L 07/03/22 10:00 97 07/03/22 09:33 91 L 07/03/22 09:00 88 L 07/03/22 08:55 87 L Intake and Output 07/03/22 07/03/22 07/04/22 14:59 22:59 06:59 Other: Voiding Method Indwelling Catheter Indwelling Catheter # Bowel Movements 2 Weight 56.699 kg 56.699 kg GENERAL EXAM: Alert, 59-year-old white female, comfortable in no apparent distress. HEAD: Normocephalic and atraumatic EYES: Normal reaction of pupils, equal size. NOSE: Clear with pink turbinates. THROAT: No erythema or exudates. Dry mucous membranes NECK: No masses, no JVD. CHEST: No chest wall deformity. LUNGS: Equal air entry with no crackles, wheeze, rhonchi or dullness. No conversational dyspnea or accessory muscle use.. CVS: S1 and S2 normal with no audible murmur, regular rhythm. No extra heart sounds ABDOMEN: No hepatosplenomegaly, active bowel sounds, no guarding or rigidity. SPINE: No scoliosis or deformity. No CVA tenderness on the left SKIN: No rashes. Abdominal surgical incision is approximated and almost fully healed CENTRAL NERVOUS SYSTEM: No focal deficits, tone is normal in all 4 extremities. EXTREMITIES: There is no peripheral edema, clubbing, or cyanosis. Peripheral pulses are intact. Results - Laboratory Findings CBC and BMP: 07/03/22 09:14 07/03/22 09:14 PT/INR, D-dimer PT 10.5 sec (9.0-12.0) 07/03/22 09:14 INR 1.0 (<1.2) 07/03/22 09:14 D-Dimer 1.46 mg/L FEU (<0.60) H 07/03/22 09:14 Abnormal lab findings: Abnormal Labs 07/03/22 07/03/22 07/03/22 09:14 09:14 09:14 WBC 12.0 H Hct 48.9 H RDW 15.8 H Plt Count 468 H Neutrophils # 9.9 H D-Dimer 1.46 H Sodium 135 L Potassium 5.7 H Carbon Dioxide 12 L BUN 46 H Creatinine 4.45 H Glucose 118 H Calcium 8.3 L Alkaline Phosphatase 132 H Albumin 3.3 L Urine Appearance Urine Protein Urine Ketones Ur Leukocyte Esterase Urine WBC Urine Bacteria Hyaline Casts Urine Mucus 07/03/22 15:14 WBC Hct RDW Plt Count Neutrophils # D-Dimer Sodium Potassium Carbon Dioxide BUN Creatinine Glucose Calcium Alkaline Phosphatase Albumin Urine Appearance Cloudy H Urine Protein 1+ H Urine Ketones Trace H Ur Leukocyte Esterase Moderate H Urine WBC 45 H Urine Bacteria Rare H Hyaline Casts 7 H Urine Mucus Rare H - Diagnostic Findings Chest x-ray: image reviewed Assessment and Plan Assessment: Acute COPD exacerbation. No obvious signs of pneumonia on chest x-ray. Acute hypoxic respiratory failure secondary to above. Currently on 4 L nasal cannula, oxygenating at 100%. Acute kidney injury, most recent creatinine 4.45. High anion gap metabolic acidosis secondary to above Recent history of right nephrectomy, at [facility] on April 11, 2022, due to reported renal carcinoma. Patient is currently taking combination of C abometyx and Nivolumab. Suspected gastroenteritis, recovered Dehydration secondary to above Obstructive sleep apnea with a baseline AHI of 16, patient normally utilizes a CPAP of 12 cm H2O Plan: Patient's medication, labs, chest x-ray reviewed Continue supplemental oxygen, wean FiO2 as tolerated Start Symbicort inhaler Continue bronchodilators Encourage patient to bring in home CPAP unit Start the patient on empiric doxycycline Check pro calcitonin level Blood and urine cultures are pending Lactic acid level pending Repeat labs in the morning Lovenox for DVT prophylaxis Protonix for GI prophylaxis We will continue to follow I have personally seen and examined the patient, performed the documentation and the assessment and plan as written. Number of minutes spent on the visit:20 Time with Patient: Greater than 30
[2022-07-04 04:07] LABS: Basophils % (A) 0 %; Eosinophils % (A) 0 %; HCT 41.3 % (34.0-46.0); HGB 12.9 gm/dL (11.4-16.0); Hypochromasia Moderate; Lymphocytes # (A) 0.6 k/uL (1.0-4.8); Lymphocytes % (A) 4 %; MCH 31.8 pg (25.0-35.0); MCHC 31.3 g/dL (31.0-37.0); MCV 101.5 fL (80.0-100.0); Macrocytosis Slight; Monocytes # (A) 0.2 k/uL (0-1.0); Monocytes % (A) 1 %; Neutrophils # (A) 11.6 k/uL (1.3-7.7); Neutrophils % (A) 94 %; Platelet Count 341 k/uL (150-450); RBC 4.07 m/uL (3.80-5.40); RDW 15.4 % (11.5-15.5); WBC 12.5 k/uL (3.8-10.6)
[2022-07-04 04:22] LABS: Albumin 2.3 g/dL (3.5-5.0); Calcium 7.2 mg/dL (8.4-10.2); Magnesium 1.7 mg/dL (1.6-2.3); Phosphorus 5.3 mg/dL (2.5-4.5); Potassium 4.5 mmol/L (3.5-5.1); Total Bilirubin 0.4 mg/dL (0.2-1.3); Total Protein 5.2 g/dL (6.3-8.2)
[2022-07-04] MEDS: PANTOPRAZOLE 40 MG TABLET PO SCH (06:17)
[2022-07-04] MEDS: buPROPion SR 100 MG TABLET.ER PO SCH ×2 (08:14→21:47)
[2022-07-04] MEDS: ENOXAPARIN 30 MG/0.3 ML SYRINGE SQ SCH (08:14)
[2022-07-04] MEDS: ZIPRASIDONE 40 MG CAP PO SCH (08:14)
[2022-07-04] MEDS: DOXYCYCLINE 100 MG CAP PO SCH ×2 (08:14→21:46)
[2022-07-04] MEDS: IPRATROPIUM-ALBUTEROL 3 ML NEB INHALATION SCH ×4 (08:16→21:58)
[2022-07-04] MEDS: SYMBICORT 160-4.5 MCG INHALER INHALATION SCH ×2 (08:17→21:58)
--- NOTE | 2022-07-04 09:54 | P.NPCON ---
History of Present Illness - Reason for Consult acute renal failure, chronic renal failure - History of Present Illness Reason for consultation: Acute kidney injury on chronic kidney disease History of present illness: Patient is a 61-year-old female seen in renal consultation for acute kidney injury on chronic kidney disease. Patient has chronic kidney disease stage IIIB with baseline creatinine near 1.5 secondary to solitary kidney. Patient states she was diagnosed with renal cell carcinoma and underwent right-sided nephrectomy in March 2022 at [facility]. Patient states her GFR sinc e surgery is near 40. Ultrasound this admission showed no evidence of hydronephrosis. She denies history of diabetes or coronary artery disease. Patient says she did vomit twice last week and oral intake has decreased. She also admits to chronic diarrhea. Patient states she felt weak yesterday and her blood pressure was as low as systolic 70s. She did receive 2 L of fluid bolus but is currently not on any IV fluids. Denies gross hematuria. No chest pain or shortness of breath. No edema. Initial potassium was 5.7 but was hemolyzed. This morning it was 4.5. Patient remains acidotic with bicarb level of 11 today. Vital signs are stable. General: No acute distress. HEENT: Head exam is unremarkable. LUNGS: Lungs are notable rhonchi or wheezes. HEART: Rate and Rhythm are regular. ABDOMEN: Nontender. EXTREMITITES: No edema. Past Medical History Past Medical History: Asthma, GERD/Reflux, Hyperlipidemia, Sleep Apnea/CPAP/BIPAP Additional Past Medical History / Comment(s): hx internal hemorrhoid, kidney CA with right nephrectomy, CPAP use, colitis, IBS History of Any Multi-Drug Resistant Organisms: None Reported Past Surgical History: Hysterectomy Additional Past Surgical History / Comment(s): right nephrectomy 04/11/22 Past Anesthesia/Blood Transfusion Reactions: No Reported Reaction Past Psychological History: Anxiety, Bipolar, Depression Smoking Status: Former smoker Past Alcohol Use History: None Reported Past Drug Use History: None Reported Medications and Allergies Home Medications Medication Instructions Recorded Confirmed Type Ziprasidone [Geodon] 40 mg PO DAILY 02/07/14 07/03/22 History Cyanocobalamin [Vitamin B-12] 1,000 mcg SQ Q30D 02/01/15 07/03/22 History ALPRAZolam [Xanax] 0.5 mg PO DAILY PRN 11/07/17 07/03/22 History Albuterol Inhaler [Ventolin Hfa 2 puff INHALATION RT-Q6H PRN 11/07/17 07/03/22 History Inhaler] Dicyclomine HCl 20 mg PO TID 11/07/17 07/03/22 History Mesalamine [Delzicol] 800 mg PO TID 11/07/17 07/03/22 History Omeprazole 40 mg PO DAILY 11/07/17 07/03/22 History Propranolol HCl 20 mg PO BID 11/07/17 07/03/22 History Albuterol Nebulized [Ventolin 2.5 mg INHALATION RT-QID PRN 07/03/22 07/03/22 Hi story Nebulized] Atorvastatin Calcium [Lipitor] 40 mg PO HS 07/03/22 07/03/22 History Cabozantinib S-Malate [Cabometyx] 40 mg PO DAILY@1500 07/03/22 07/03/22 History Fluticasone Propion/Salmeterol 1 puff INHALATION RT-BID 07/03/22 07/03/22 History [Advair 500-50 Diskus] Levothyroxine Sodium [Synthroid] 112 mcg PO DAILY@1500 07/03/22 07/03/22 History Multivitamins, Thera [Multivitamin 1 tab PO DAILY 07/03/22 07/03/22 History (formulary)] Nivolumab(Unknown Dose) 1 dose IV Q30D 07/03/22 07/03/22 History Ziprasidone [Geodon] 60 mg PO HS 07/03/22 07/03/22 History buPROPion HCL [Wellbutrin SR] 200 mg PO BID 07/03/22 07/03/22 History Allergies Allergy/AdvReac Type Severity Reaction Status Date / Time codeine Allergy Rash/Hives Verified 07/03/22 11:01 Penicillins Allergy Rash/Hives Verified 07/03/22 11:01 on feet Sulfa (Sulfonamide Allergy Rash/Hives Verified 07/03/22 11:01 Antibiotics) on feet ibuprofen [From Motrin] AdvReac Nausea & Verified 07/03/22 11:01 Vomiting Physical Exam Vitals: Vital Signs Temp Pulse Pulse Resp BP BP BP 07/04/22 08:33 104 H 07/04/22 08:17 102 H 07/04/22 08:10 98.5 F 104 H 18 106/69 07/04/22 04:04 97.8 F 95 18 102/63 07/03/22 23:27 97.6 F 85 16 94/59 07/03/22 19:53 97.5 F L 84 18 93/65 07/03/22 18:28 97 F L 82 18 88/48 07/03/22 16:50 91/44 07/03/22 16:00 91 20 94/45 07/03/22 14:29 92 18 94/55 07/03/22 13:43 74/47 07/03/22 13:30 90 20 76/33 07/03/22 13:00 89/27 07/03/22 12:41 91 20 101/35 07/03/22 10:31 88 20 93/59 07/03/22 10:00 87 18 71/31 Pulse Ox 07/04/22 08:33 07/04/22 08:17 97 07/04/22 08:10 97 07/04/22 04:04 98 07/03/22 23:27 98 07/03/22 19:53 98 07/03/22 18:28 100 07/03/22 16:50 07/03/22 16:00 92 L 07/03/22 14:29 92 L 07/03/22 13:43 07/03/22 13:30 94 L 07/03/22 13:00 07/03/22 12:41 07/03/22 10:31 94 L 07/03/22 10:00 97 Intake and Output 07/03/22 07/04/22 07/04/22 22:59 06:59 14:59 Intake Total 118 Output Total 450 Balance -450 118 Intake: Oral 118 Output: Urine 450 Other: Voiding Method Indwelling Catheter Indwelling Catheter # Bowel Movements 2 Weight 56.699 kg Results - Lab Results Most recent lab results Calcium 7.2 mg/dL (8.4-10.2) L 07/04/22 03:47 Phosphorus 5.3 mg/dL (2.5-4.5) H 07/04/22 03:47 Magnesium 1.7 mg/dL (1.6-2.3) 07/04/22 03:47 07/04/22 03:47 07/04/22 03:47 Assessment and Plan Plan: Assessment: 1. Acute kidney injury secondary to ATN secondary to hypotension. Creatinine 4.4. On admission and is 3.4 today. No hydronephrosis noted on kidney ultrasound. 2. Chronic kidney disease stage IIIB. Baseline creatinine near 1.5 secondary to solitary left kidney. 3. Status post right nephrectomy in March 2022 due to malignancy. 4. Metabolic acidosis secondary to acute kidney injury. 5. Hypotension related to hypovolemia. Rule out adrenal sufficiency. Plan: Start bicarb drip. Encouraged oral intake. Add midodrine but hold for systolic blood pressure greater than 110. Check cortisol level. Avoid nephrotoxins. Continue to monitor renal function and urine output. Thank you for the consultation. I will continue to follow the patient with you during her hospital stay.
[2022-07-04] MEDS: DEXTROSE 5% IN WATER 1,000 ML with SODIUM BICARB (1 MEQ/ML) 150 ML IV SCH ×2 (10:38→23:50)
[2022-07-04] MEDS: PROPRANOLOL 20 MG TAB PO SCH ×2 (10:38→21:46)
[2022-07-04] MEDS: MIDODRINE 5 MG TAB PO SCH ×2 (12:06→17:20)
--- NOTE | 2022-07-04 13:28 | CT ---
EXAMINATION TYPE: CT chest wo con CT DLP: 306.1 mGycm, Automated exposure control for dose reduction was used. DATE OF EXAM: 07/04/2022 1:07 PM COMPARISON: CT chest abdomen 09/15/2021 CLINICAL INDICATION:Female, 61 years old with history of SOB, hx cancer on immunotherapy, r/o pneumon itis; PHH, SOB TECHNIQUE: Multiple axial images were obtained through the chest without IV contrast. Lack of IV or o ral contrast limits evaluation of solid and hollow organ viscera. FINDINGS: LUNGS/ PLEURA: No pleural effusion, pneumothorax, or focal consolidation. Scarring and/or atelectasis within the inferior aspect of the left lower lobe. Development of left upper lobe 8 mm pulmonary no dule (series 205 image 15). Development of right lower lobe 5 mm groundglass pulmonary nodule (series 205, image 36). 2 mm pulmonary nodule in the right upper lobe (series 205, image 20). AIRWAY: Patent and unremarkable.. HEART: Size within normal limits. No pericardial effusion. MEDIASTINUM: No gross evidence of adenopathy. VASCULATURE: No aortic aneurysm. Atherosclerotic calcification of the aorta. MUSCULOSKELETAL: No acute osseous abnormalities. No aggressive osseous lesion. SOFT TISSUES/LYMPH NODES: Unremarkable. LOWER NECK: No significant findings. UPPER ABDOMEN: Cholelithiasis. Postsurgical changes from right nephrectomy. No suspicious soft tissue within the visualized portion of the nephrectomy bed. Stable left renal cysts. Stable left adrenal g land nodularity. These demonstrate Hounsfield unit less than 10 suggesting benign lipid rich adrenal adenomas. IMPRESSION: 1. Development of a few pulmonary nodules measuring up to 8 mm. This may relate to metastatic disease . Follow-up CT chest in 3 months is recommended. 2. Cholelithiasis. 3. Stable left adrenal gland nodularity.
--- NOTE | 2022-07-04 14:23 | P.PN ---
Subjective Progress Note Date: 07/04/22 Patient is a 61-year-old female with PMH of right-sided renal cell cancer status post nephrectomy at [facility] in [place] on April 11, bipolar disorder/depression/anxiety, GERD, hypothyroidism, COPD, KATHERYN presents to the ED for worsening shortness of breath that has been ongoing since Monday. Patient reports progressively worsening shortness of breath, worse with exertion to the point she had to use her CPAP last night. When her symptoms continue to worsen this morning this prompted her to come to the ED. She denies any lower extremity swelling or orthopnea. She denies any chest pain. She does report a cough productive of yellow mucus. She reports a history of COPD for which she sees Dr. Acosta in the outpatient setting. She has noted that her O2 saturation at home usually ranges in the mid to high 80s and tops out in the low 90s. Of note, patient reports difficulty being extubated after her nephrectomy in March due to hypotension. She denies any headache, nausea or vomiting, fe tomi or chills, palpitations, changes in urination or bowel habits. She reports a poor appetite. She denies any dizziness, numbness/weakness/tingling of the extremities. In the ED, she was noted to be hypotensive with BP as low as 71/31. Her respiratory rate was 24. She was tachycardic with heart rate in the 90s. She was saturating 87% on 2 L nasal cannula. CBC showed leukocytosis of 12 and platelet count of 468. Coagulation panel was within normal limits. D- dimer was 1.46. CMP showed sodium 135, potassium of 5.7, bicarb of 12, BUN of 46, creatinine of 4.45, glucose of 118, calcium of 8.3, alkaline phosphatase of 132 and albumin of 3.3. Troponin was 0.014. BNP was 356. Influenza, RSV and COVID-19 negative. VQ scan was negative for PE. Chest x-ray showed no infiltrate. EKG showed sinus rhythm with left anterior fascicular block, ventricular rate of 97. Patient is admitted for further workup and management of her symptoms. Patient was seen and examined. No acute events overnight. She reports improvement in her breathing since starting oxygen. She complains of cough pro ductive of yellow sputum. She has no other complaints. General: non toxic, no distress, cachectic Derm: warm, dry Head: atraumatic, normocephalic, symmetric Eyes: EOMI, no lid lag, anicteric sclera Mouth: no lip lesion, mucus membranes moist Cardiovascular: Tachycardic, no murmur Lungs: Decreased breath sounds bilateral, no rhonchi, no rales , no accessory muscle use Ext: no gross muscle atrophy, no edema, no contractures Neuro: no focal neuro deficits Psych: Alert, oriented, appropriate affect Acute hypoxic respiratory failure with history of KATHERYN and COPD SIRS Acute kidney injury Metabolic acidosis Elevated d-dimer Resolved: Hyperkalemia Chronic conditions: right-sided renal cell cancer status post nephrectomy at [facility] on April 11, bipolar disorder/depression/anxiety, GERD, hypothyroidism, COPD, KATHERYN Based on my assessment of this patient, this patient meets a high complexity level of care. I have reviewed the following solutions market consultant notes: Pulmonology note 07/04, continue doxycycline 100 mg twice a day, check procalcitonin, continue bronchodilators, start Symbicort. Nephrology 07/04, start bicarb drip, add midodrine, check cortisol level I have reviewed the results of the following tests: CBC shows leukocytosis of 12.5 with MCV of 101.5. CMP shows sodium 133, chloride of 108, bicarb of 11, BUN of 45, creatinine of 3.84, glucose is 61, calcium is 7.2 and albumin of 2.3. Pro-calcitonin 0.3. Urinalysis shows moderate leukocyte esterase. Renal ultrasound negative for hydronephrosis. I have ordered the following tests: Blood culture pending. Urine culture pending. Repeat CBC and BMP tomorrow morning. I have discussed the care of this patient with the following independent historian: None. I have independently interpreted the following test below: None. I have discussed the management of this patient with the following physician: None. This patient has a high risk of morbidity due to the following reasons: Patient has an acute diagnosis of hypoxia and hypotension that poses a threat to life or bodily function. She has a significant acute kidney injury and appears clinically dehydrated. In addition, she meets SIRS criteria with hypotension, tachycardia and leukocytosis. No obvious source of infection at this time. Patient reports a history of KATHERYN and COPD along with noted hypoxia via pulse ox at home. She does not appear to be in acute exacerbation. VQ scan is ruled out pulmonary embolus. Chest x-ray shows no acute infiltrate. Supplemental O2 to maintain O2 saturation greater than 92%. She has been started on doxycycline 100 mg by mouth twice a day. She is started on Symbicort and DuoNeb scheduled and as needed for shortness of breath and wheezing. Started on Solu-Medrol 60 mg IV every 6 hours. Telemetry monitoring as ordered. Pulmonology onboard. She received 2 L normal saline in the ED. Blood culture and urine culture pending. Hold propranolol. Normal saline discontinued for D5 water with sodium bicarbonate infusion 100 mL per hour. Doxycycline should also cover her for UTI. Midodrin 5 mg by mouth 3 times a day ordered for hypotension. Renal ultrasound negative for obstruction. Renal function is slowly improving with IV hydration. Mesalamine on hold. Nephrology is on board. Lovenox for DVT prophylaxis. Patient names her son Manjinder and daughter Carol decision maker if she can't make decisions for herself. Patient would like to be full code. Objective - Vital Signs Vital signs: Vital Signs Temp 98.5 F 07/04/22 08:10 Pulse 79 07/04/22 12:05 Resp 18 07/04/22 12:05 BP 93/55 07/04/22 12:05 Pulse Ox 97 07/04/22 12:05 FiO2 Intake & Output 07/03/22 07/04/22 07/04/22 18:59 06:59 18:59 Intake Total 658 Output Total 450 Balance -450 658 Weight 56.699 kg Intake: Oral 658 Output: Urine 450 Other: Voiding Method Indwelling Catheter Indwelling Catheter # Bowel Movements 2 - Labs CBC & Chem 7: 07/04/22 03:47 07/04/22 03:47 Labs: Abnormal Lab Results - Last 24 Hours (Table) 07/03/22 07/03/22 07/04/22 Range/Units 09:14 15:14 03:47 WBC 12.5 H (3.8-10.6) k/uL MCV 101.5 H (80.0-100.0) fL Neutrophils # 11.6 H (1.3-7.7) k/uL Lymphocytes # 0.6 L (1.0-4.8) k/uL Sodium (137-145) mmol/L Chloride (98-107) mmol/L Carbon Dioxide (22-30) mmol/L BUN (7-17) mg/dL Creatinine (0.52-1.04) mg/dL Glucose (74-99) mg/dL Calcium (8.4-10.2) mg/dL Phosphorus (2.5-4.5) mg/dL Total Protein (6.3-8.2) g/dL Albumin (3.5-5.0) g/dL Procalcitonin 0.30 H (0.02-0.09) ng/mL Urine Appearance Cloudy H (Clear) Urine Protein 1+ H (Negative) Urine Ketones Trace H (Negative) Ur Leukocyte Esterase Moderate H (Negative) Urine WBC 45 H (0-5) /hpf Urine Bacteria Rare H (None) /hpf Hyaline Casts 7 H (0-2) /lpf Urine Mucus Rare H (None) /hpf 07/04/22 Range/Units 03:47 WBC (3.8-10.6) k/uL MCV (80.0-100.0) fL Neutrophils # (1.3-7.7) k/uL Lymphocytes # (1.0-4.8) k/uL Sodium 133 L (137-145) mmol/L Chloride 108 H (98-107) mmol/L Carbon Dioxide 11 L (22-30) mmol/L BUN 45 H (7-17) mg/dL Creatinine 3.84 H (0.52-1.04) mg/dL Glucose 61 L (74-99) mg/dL Calcium 7.2 L (8.4-10.2) mg/dL Phosphorus 5.3 H (2.5-4.5) mg/dL Total Protein 5.2 L (6.3-8.2) g/dL Albumin 2.3 L (3.5-5.0) g/dL Procalcitonin (0.02-0.09) ng/mL Urine Appearance (Clear) Urine Protein (Negative) Urine Ketones (Negative) Ur Leukocyte Esterase (Negative) Urine WBC (0-5) /hpf Urine Bacteria (None) /hpf Hyaline Casts (0-2) /lpf Urine Mucus (None) /hpf Microbiology - Last 24 Hours (Table) 07/03/22 15:14 Urine Culture - Preliminary Urine,Voided
[2022-07-04] MEDS: CABOZANTINIB 40 MG PO SCH (15:14)
[2022-07-04] MEDS: LEVOTHYROXINE 112 MCG TAB PO SCH (15:14)
--- NOTE | 2022-07-04 15:14 | P.CONS ---
History of Present Illness - Reason for Consult Consult date: 07/04/22 [facility] Requesting physician: Elda Larose - Chief Complaint SOB - History of Present Illness Patient is a 61-year-old female with a significant history of renal cell c arcinoma and COPD. We were consulted due to history of renal cell carcinoma. She is a patient of Dr. Campbell at [facility]. She has a history of a right nephrectomy in March 2022 and is currently on cabometyx and nivolumab treatment. Patient reports she's been having increasing shortness of breath over the last 2 days and a productive cough over the last 1 week with associated chest pain. She denies hemoptysis. Denies nausea vomiting diarrhea, abdominal pain, blood in stool, melena, hematuria, fever and chills. VQ scan was negative for PE. Chest x-ray showed no acute processes. Renal ultrasound revealed no evidence of obstructive uropathy. Left renal cyst is seen on prior CT. Today hemoglobin 12.9, WBC 12.5, platelets 341,000. She was started on empiric doxycycline. Pulmonology following. Review of Systems 10 point ROS is negative except as stated in HPI Past Medical History Past Medical History: Asthma, GERD/Reflux, Hyperlipidemia, Sleep Apnea/CPAP/BIPAP Additional Past Medical History / Comment(s): hx internal hemorrhoid, kidney CA with right nephrectomy, CPAP use, colitis, IBS History of Any Multi-Drug Resistant Organisms: None Reported Past Surgical History: Hysterectomy Additional Past Surgical History / Comment(s): right nephrectomy 04/11/22 Past Anesthesia/Blood Transfusion Reactions: No Reported Reaction Past Psychological History: Anxiety, Bipolar, Depression Smoking Status: Former smoker Past Alcohol Use History: None Reported Past Drug Use History: None Reported Medications and Allergies Home Medications Medication Instructions Recorded Confirmed Type Ziprasidone [Geodon] 40 mg PO DAILY 02/07/14 07/03/22 History Cyanocobalamin [Vitamin B-12] 1,000 mcg SQ Q30D 02/01/15 07/03/22 History ALPRAZolam [Xanax] 0.5 mg PO DAILY PRN 11/07/17 07/03/22 History Albuterol Inhaler [Ventolin Hfa 2 puff INHALATION RT-Q6H PRN 11/07/17 07/03/22 History Inhaler] Dicyclomine HCl 20 mg PO TID 11/07/17 07/03/22 History Mesalamine [Delzicol] 800 mg PO TID 11/07/17 07/03/22 History Omeprazole 40 mg PO DAILY 11/07/17 07/03/22 History Propranolol HCl 20 mg PO BID 11/07/17 07/03/22 History Albuterol Nebulized [Ventolin 2.5 mg INHALATION RT-QID PRN 07/03/22 07/03/22 History Nebulized] Atorvastatin Calcium [Lipitor] 40 mg PO HS 07/03/22 07/03/22 History Cabozantinib S-Malate [Cabometyx] 40 mg PO DAILY@1500 07/03/22 07/03/22 History Fluticasone Propion/Salmeterol 1 puff INHALATION RT-BID 07/03/22 07/03/22 History [Advair 500-50 Diskus] Levothyroxine Sodium [Synthroid] 112 mcg PO DAILY@1500 07/03/22 07/03/22 History Multivitamins, Thera [Multivitamin 1 tab PO DAILY 07/03/22 07/03/22 History (formulary)] Nivolumab(Unknown Dose) 1 dose IV Q30D 07/03/22 07/03/22 History Ziprasidone [Geodon] 60 mg PO HS 07/03/22 07/03/22 History buPROPion HCL [Wellbutrin SR] 200 mg PO BID 07/03/22 07/03/22 History Allergies Allergy/AdvReac Type Severity Reaction Status Date / Time codeine Allergy Rash/Hives Verified 07/03/22 11:01 Penicillins Allergy Rash/Hives Verified 07/03/22 11:01 on feet Sulfa (Sulfonamide Allergy Rash/Hives Verified 07/03/22 11:01 Antibiotics) on feet ibuprofen [From Motrin] AdvReac Nausea & Verified 07/03/22 11:01 Vomiting Physical Exam Vitals: Vital Signs Temp Pulse Pulse Resp BP BP BP 07/04/22 14:00 79 18 07/04/22 12:05 79 18 93/55 07/04/22 12:01 104 H 07/04/22 11:47 102 H 07/04/22 08:33 104 H 07/04/22 08:17 102 H 07/04/22 08:10 98.5 F 104 H 18 106/69 07/04/22 04:04 97.8 F 95 18 102/63 07/03/22 23:27 97.6 F 85 16 94/59 07/03/22 19:53 97.5 F L 84 18 93/65 07/03/22 18:28 97 F L 82 18 88/48 07/03/22 16:50 91/44 07/03/22 16:00 91 20 94/45 Pulse Ox 07/04/22 14:00 07/04/22 12:05 97 07/04/22 12:01 07/04/22 11:47 07/04/22 08:33 07/04/22 08:17 97 07/04/22 08:10 97 07/04/22 04:04 98 07/03/22 23:27 98 07/03/22 19:53 98 07/03/22 18:28 100 07/03/22 16:50 07/03/22 16:00 92 L Intake and Output 07/03/22 07/04/22 07/04/22 22:59 06:59 14:59 Intake Total 658 Output Total 450 Balance -450 658 Intake: Oral 658 Output: Urine 450 Other: Voiding Method Indwelling Catheter Indwelling Catheter Indwelling Catheter # Bowel Movements 2 Weight 56.699 kg - Constitutional General appearance: average body habitus, no acute distress - EENT Eyes: anicteric sclerae, EOMI ENT: hearing grossly normal - Respiratory Respiratory: bilateral: wheezing - Cardiovascular Rhythm: regular Heart sounds: normal: S1, S2 Abnormal Heart Sounds: systolic murmur - Gastrointestinal General gastrointestinal: soft, no tenderness - Integumentary Integumentary: normal - Neurologic Grossly intact - Musculoskeletal Musculoskeletal: strength equal bilaterally - Psychiatric Psychiatric: A&O x's 3, appropriate affect, intact judgment & insight Results CBC & Chem 7: 07/04/22 03:47 07/04/22 03:47 Labs: Abnormal Lab Results - Last 24 Hours (Table) 07/03/22 07/03/22 07/04/22 Range/Units 09:14 15:14 03:47 WBC 12.5 H (3.8-10.6) k/uL MCV 101.5 H (80.0-100.0) fL Neutrophils # 11.6 H (1.3-7.7) k/uL Lymphocytes # 0.6 L (1.0-4.8) k/uL Sodium (137-145) mmol/L Chloride (98-107) mmol/L Carbon Dioxide (22-30) mmol/L BUN (7-17) mg/dL Creatinine (0.52-1.04) mg/dL Glucose (74-99) mg/dL Calcium (8.4-10.2) mg/dL Phosphorus (2.5-4.5) mg/dL Total Protein (6.3-8.2) g/dL Albumin (3.5-5.0) g/dL Procalcitonin 0.30 H (0.02-0.09) ng/mL Urine Appearance Cloudy H (Clear) Urine Protein 1+ H (Negative) Urine Ketones Trace H (Negative) Ur Leukocyte Esterase Moderate H (Negative) Urine WBC 45 H (0-5) /hpf Urine Bacteria Rare H (None) /hpf Hyaline Casts 7 H (0-2) /lpf Urine Mucus Rare H (None) /hpf 07/04/22 Range/Units 03:47 WBC (3.8-10.6) k/uL MCV (80.0-100.0) fL Neutrophils # (1.3-7.7) k/uL Lymphocytes # (1.0-4.8) k/uL Sodium 133 L (137-145) mmol/L Chloride 108 H (98-107) mmol/L Carbon Dioxide 11 L (22-30) mmol/L BUN 45 H (7-17) mg/dL Creatinine 3.84 H (0.52-1.04) mg/dL Glucose 61 L (74-99) mg/dL Calcium 7.2 L (8.4-10.2) mg/dL Phosphorus 5.3 H (2.5-4.5) mg/dL Total Protein 5.2 L (6.3-8.2) g/dL Albumin 2.3 L (3.5-5.0) g/dL Procalcitonin (0.02-0.09) ng/mL Urine Appearance (Clear) Urine Protein (Negative) Urine Ketones (Negative) Ur Leukocyte Esterase (Negative) Urine WBC (0-5) /hpf Urine Bacteria (None) /hpf Hyaline Casts (0-2) /lpf Urine Mucus (None) /hpf Microbiology - Last 24 Hours (Table) 07/03/22 15:14 Urine Culture - Preliminary Urine,Voided Comments: Renal ultrasound and VQ scan reviewed Chest x-ray: report reviewed Assessment and Plan (1) Renal cell cancer Current Visit: Yes Status: Acute Code(s): C64.9 - MALIGNANT NEOPLASM OF UNSP KIDNEY, EXCEPT RENAL PELVIS SNOMED Code(s): 760285844 (2) Dyspnea Current Visit: Yes Status: Acute Code(s): R06.00 - DYSPNEA, UNSPECIFIED SNOMED Code(s): 507714069 Plan: Renal cell carcinoma: -She is a patient of Dr. Campbell at [facility]. She has a history of a right nephrectomy in March 2022 and is currently on cabometyx and nivolumab treatment. -Renal ultrasound revealed no evidence of obstructive uropathy. Left renal cyst is seen on prior CT. -Ok to continue canometyx, as long as no bleeding episodes -Will f/u wit primary oncologist upon discharge to discuss restarting opdivo once recovered from acute condition SOB: -VQ scan was negative for PE. Chest x-ray showed no acute processes. -Will order CT chest wo to r/o underlying pneumonitis r/t immunotherapy -She was started on empiric doxycycline. Oxygen saturation 97% on 2L NC. Pulmonology following. attests: I have performed H&P and developed impression and plan of care for patient, discussed with dictator. I agree with dictated note, documented as a scribe
[2022-07-04 20:23] LABS: Glucose,Whole Blood 207 mg/dL (70-110)
[2022-07-04] MEDS: ATORVASTATIN 40 MG TAB PO SCH (21:46)
[2022-07-04] MEDS: ZIPRASIDONE 60 MG CAP PO SCH (21:47)
[2022-07-04] MEDS: INSULIN ASPART (NovoLOG) 100 UNIT/ML VIAL SQ SCH (21:49)
[2022-07-05 01:30] LABS: Glucose,Whole Blood 152 mg/dL (70-110)
[2022-07-05 05:52] LABS: Glucose,Whole Blood 181 mg/dL (70-110)
[2022-07-05] MEDS: PANTOPRAZOLE 40 MG TABLET PO SCH (06:27)
[2022-07-05] MEDS: methylPREDNISolone SOD SUCCI 125 MG/2 ML VIAL IV SCH ×4 (06:27→23:51)
[2022-07-05] MEDS: MIDODRINE 5 MG TAB PO SCH ×3 (06:27→17:10)
[2022-07-05] MEDS: INSULIN ASPART (NovoLOG) 100 UNIT/ML VIAL SQ SCH ×4 (06:28→21:23)
[2022-07-05 08:56] LABS: Calcium 7.3 mg/dL (8.4-10.2); Magnesium 1.6 mg/dL (1.6-2.3); Potassium 3.5 mmol/L (3.5-5.1)
[2022-07-05] MEDS ORDERED: POTASSIUM CHLORIDE ER 20 MEQ TAB.ER PO STA (09:13)
--- NOTE | 2022-07-05 09:14 | P.PN ---
Subjective Patient is seen in follow-up for acute kidney injury on chronic kidney disease. Currently on bicarb drip. Acidosis resolved. Nonoliguric. Oral intake fair. Vital signs are stable. General: No acute distress. HEENT: Head exam is unremarkable. LUNGS: No audible rhonchi or wheezes. HEART: Rate and Rhythm are regular. ABDOMEN: Soft, nontender. EXTREMITITES: No edema. Objective - Vital Signs Vital signs: Vital Signs Temp 97.3 F L 07/05/22 08:00 Pulse 74 07/05/22 08:00 Resp 18 07/05/22 08:00 BP 106/51 07/05/22 08:00 Pulse Ox 97 07/05/22 08:00 FiO2 Intake & Output 07/04/22 07/05/22 07/05/22 18:59 06:59 18:59 Intake Total 1018 118 Output Total 550 820 Balance 468 -820 118 Intake: Oral 1018 118 Output: Urine 550 820 Uretheral (Wells) 820 Other: Voiding Method Indwelling Catheter Indwelling Catheter # Bowel Movements 1 2 - Labs CBC & Chem 7: 07/04/22 03:47 07/05/22 07:19 Labs: Abnormal Lab Results - Last 24 Hours (Table) 07/03/22 07/04/22 07/05/22 Range/Units 09:14 20:21 01:28 Sodium (137-145) mmol/L BUN (7-17) mg/dL Creatinine (0.52-1.04) mg/dL Glucose (74-99) mg/dL POC Glucose (mg/dL) 207 H 152 H (70-110) mg/dL Calcium (8.4-10.2) mg/dL Procalcitonin 0.30 H (0.02-0.09) ng/mL 07/05/22 07/05/22 Range/Units 05:51 07:19 Sodium 134 L (137-145) mmol/L BUN 42 H (7-17) mg/dL Creatinine 2.35 H (0.52-1.04) mg/dL Glucose 128 H (74-99) mg/dL POC Glucose (mg/dL) 181 H (70-110) mg/dL Calcium 7.3 L (8.4-10.2) mg/dL Procalcitonin (0.02-0.09) ng/mL [facility] - Last 24 Hours (Table) 07/03/22 14:45 Blood Culture - Preliminary Blood No Growth after 24 hours 07/03/22 15:14 Urine Culture - Preliminary Urine,Voided Assessment and Plan Plan: Assessment: 1. Acute kidney injury secondary to ATN secondary to hypotension. Creatinine 4.4 on admission and is 2.35 today. No hydronephrosis noted on kidney ultrasou nd. 2. Chronic kidney disease stage IIIB. Baseline creatinine near 1.5 secondary to solitary left kidney. 3. Status post right nephrectomy in March 2022 due to malignancy. 4. Metabolic acidosis secondary to acute kidney injury. On bicarb drip. Resolved. 5. Hypotension related to hypovolemia. Rule out adrenal sufficiency. 6. Hypokalemia from intrasellar shifting from IV bicarb. Plan: Change fluids to normal saline. Encouraged oral intake. Increase dose of midodrine - hold for systolic blood pressure greater than 110. Follow-up cortisol level. Avoid nephrotoxins. Continue to monitor renal function and urine output. Replace potassium and magnesium.
[2022-07-05] MEDS: ENOXAPARIN 30 MG/0.3 ML SYRINGE SQ SCH (09:55)
[2022-07-05] MEDS: IPRATROPIUM-ALBUTEROL 3 ML NEB INHALATION SCH ×4 (09:56→22:01)
[2022-07-05] MEDS: PROPRANOLOL 20 MG TAB PO SCH ×2 (09:56→21:22)
[2022-07-05] MEDS: SYMBICORT 160-4.5 MCG INHALER INHALATION SCH ×2 (09:56→22:01)
[2022-07-05] MEDS: DOXYCYCLINE 100 MG CAP PO SCH ×2 (09:57→21:22)
[2022-07-05] MEDS: ZIPRASIDONE 40 MG CAP PO SCH (09:57)
[2022-07-05] MEDS: buPROPion SR 100 MG TABLET.ER PO SCH ×2 (09:57→21:22)
[2022-07-05] MEDS: MAGNESIUM SULFATE-D5W PMX 1 GM in DEXTROSE/WATER 1 100ML.BAG IVPB SCH ×2 (09:58→12:29)
[2022-07-05] MEDS: SODIUM CHLORIDE 0.9% 1,000 ML IV SCH ×2 (09:58→23:50)
[2022-07-05] MEDS: DEXTROSE 5% IN WATER 1,000 ML with SODIUM BICARB (1 MEQ/ML) 150 ML IV SCH (10:03)
--- NOTE | 2022-07-05 10:22 | P.PN ---
Subjective Progress Note Date: 07/05/22 I am seeing this patient today 07/04/2022 in new consultation for acute COPD exacerbation. Patient is a 61-year-old female with past medical history of moderate COPD with an FEV1 60% of predicted, obstructive sleep apnea utilizing a CPAP of 12 cm H2O at bedtime, recent ex-smoker quitting March 21 of this year, right-sided renal carcinoma status post right nephrectomy receiving targeted therapy with Cabometyx and Nivolumab, hypothyroidism, GERD. Patient does follow with Dr. Acosta in outpatient setting for management of her COPD and KATHERYN. Patient presented to the emergency room yesterday evening with the chief complaint of shortness of breath starting approximately 2 days ago. Patient does report a productive cough approximately 1 week ago with yellow- green sputum production. Since then, patient denies any persistent cough, fevers, chills, chest pain, hemoptysis. Patient also denies any heart palpitations, lightheadedness, syncope, lower extremity swelling, orthopnea. She did report a "GI bug" approximately a week ago that involved nausea, vomiting, diarrhea. This has since stopped, although, patient reports recurrent diarrhea with her cancer medications. Denies abdominal pain. While in the emergency room, patient was hypotensive, with a blood pressure 70s over 40s, requiring fluid resuscitation with 2 L normal saline. Patient is currently sitting in bed, on 4 L nasal cannula, in no acute distress. She is oxygenating 100% with current FiO2. Patient actually states that she is feeling much better now. Chest x-ray on arrival showed some focal left midline linear scarring without any new acute infiltrates. Patient's d-dimer was elevated at 1.46 on arrival. Follow-up VQ scan was negative for pulmonary embolism. Patient's CBC on arrival showed some mild leukocytosis with a WBC count of 12, hemoglobin 15.7, hematocrit 48.9, platelets 460,000. BMP on arrival shows a sodium 135, potassium 5.7, chloride 106, serum CO2 12, BUN 46, creatinine 4.45, glucose 118. Renal ultrasound showed a surgically absent right kidney; no evidence of obstructive uropathy on the left; and a left renal cyst that was seen on prior CT. Normal saline is infusing at 50 ML's per hour. Troponin negative 1. NT proBNP was low at 306. Afebrile. Vital signs are currently stable. On today's evaluation of or 2022, the patient is being seen for a follow-up. She was hospitalized for shortness of breath, COPD exacerbation and the patient also had a acute kidney injury. She is known to have COPD with an FEV1 of 60% of predicted and the patient also is known to have a right renal cell carcinoma with a previous right nephrectomy and currently she is on targeted treatment. A CAT scan of the chest was done yesterday on 07/04/2022 and showed development a few pulmonary nodules measuring up to 8 mm in size. This could be potentially metastatic. Otherwise no other acute abnormalities were seen. The creatinine is improving and currently is down to 2.3 with a BUN of 42 and a sodium of 134. There is +12.5 with hemoglobin 12.9 and a platelet count of 341. The patient is currently on DuoNeb neb on the clock, Symbicort, doxycycline as an empiric antibiotic coverage and the patient is also on IV Solu-Medrol 60 mg every 6 hours. Objective - Vital Signs Vital signs: Vital Signs Temp 97.3 F L 07/05/22 08:00 Pulse 72 07/05/22 09:56 Resp 16 07/05/22 09:56 BP 106/51 07/05/22 08:00 Pulse Ox 97 07/05/22 09:56 FiO2 Intake & Output 07/04/22 07/05/22 07/05/22 18:59 06:59 18:59 Intake Total 1018 118 Output Total 550 820 400 Balance 468 -820 -282 Intake: Oral 1018 118 Output: Urine 550 820 400 Uretheral (Wells) 820 Other: Voiding Method Indwelling Catheter Indwelling Catheter # Bowel Movements 1 2 - Exam GENERAL EXAM: Alert, 59-year-old white female, comfortable in no apparent di stress. HEAD: Normocephalic and atraumatic EYES: Normal reaction of pupils, equal size. NOSE: Clear with pink turbinates. THROAT: No erythema or exudates. Dry mucous membranes NECK: No masses, no JVD. CHEST: No chest wall deformity. LUNGS: Equal air entry with no crackles, wheeze, rhonchi or dullness. No conversational dyspnea or accessory muscle use.. CVS: S1 and S2 normal with no audible murmur, regular rhythm. No extra heart sounds ABDOMEN: No hepatosplenomegaly, active bowel sounds, no guarding or rigidity. SPINE: No scoliosis or deformity. No CVA tenderness on the left SKIN: No rashes. Abdominal surgical incision is approximated and almost fully healed CENTRAL NERVOUS SYSTEM: No focal deficits, tone is normal in all 4 extremities. EXTREMITIES: There is no peripheral edema, clubbing, or cyanosis. Peripheral pulses are intact. - Labs CBC & Chem 7: 07/04/22 03:47 07/05/22 07:19 Labs: Abnormal Lab Results - Last 24 Hours (Table) 07/04/22 07/05/22 07/05/22 Range/Units 20:21 01:28 05:51 Sodium (137-145) mmol/L BUN (7-17) mg/dL Creatinine (0.52-1.04) mg/dL Glucose (74-99) mg/dL POC Glucose (mg/dL) 207 H 152 H 181 H (70-110) mg/dL Calcium (8.4-10.2) mg/dL 07/05/22 Range/Units 07:19 Sodium 134 L (137-145) mmol/L BUN 42 H (7-17) mg/dL Creatinine 2.35 H (0.52-1.04) mg/dL Glucose 128 H (74-99) mg/dL POC Glucose (mg/dL) (70-110) mg/dL Calcium 7.3 L (8.4-10.2) mg/dL Microbiology - Last 24 Hours (Table) 07/03/22 14:45 Blood Culture - Preliminary Blood No Growth after 24 hours 07/03/22 15:14 Urine Culture - Preliminary Urine,Voided Assessment and Plan Plan: Acute COPD exacerbation. No obvious signs of pneumonia on chest x-ray. Acute hypoxic respiratory failure secondary to above. Currently on 4 L nasal cannula, oxygenating at 100%. Acute kidney injury, most recent creatinine 4.45. High anion gap metabolic acidosis secondary to above Recent history of right nephrectomy, at [facility] in [place] on April 11, 2022, due to reported renal carcinoma. Patient is currently taking combination of Cabometyx and Nivolumab. Subcentimeter pulmonary nodule could be potentially metastatic. CAT scan of the chest done on 07/04/2022 showed development a few pulmonary nodules measuring up to 8 mm in size that needs to be further followed up on outpatient basis. These nodules on the left upper lobe, right lower lobe and the right upper lobe. Suspected gastroenteritis, recovered Dehydration secondary to above Obstructive sleep apnea with a baseline AHI of 16, patient normally utilizes a CPAP of 12 cm H2O Plan: Clinically improved Bicarb drip was discontinued and the patient was switched to normal saline at rate of 75 Renal function continues to improve Continue bronchodilators and steroids Renal function is improving CAT scan of the chest was noted Symbicort inhaler Continue bronchodilators Encourage patient to bring in home CPAP unit empiric doxycycline Check pro calcitonin level is 0.3 Blood and urine cultures are pending Repeat labs in the morning Lovenox for DVT prophylaxis Protonix for GI prophylaxis We will continue to follow
[2022-07-05 11:29] LABS: Glucose,Whole Blood 189 mg/dL (70-110)
--- NOTE | 2022-07-05 13:19 | P.PN ---
Subjective Progress Note Date: 07/05/22 Hospital Course: Patient is a 61-year-old female with PMH of right-sided renal cell cancer status post nephrectomy at [facility] in [place] on April 11, bipolar disorder/depression/anxiety, GERD, hypothyroidism, COPD, KATHERYN presents to the ED for worsening shortness of breath that has been ongoing since Monday. Patient reports progressively worsening shortness of breath, worse with exertion to the point she had to use her CPAP last night. When her symptoms continue to worsen this morning this prompted her to come to the ED. She denies any lower extremity swelling or orthopnea. She denies any chest pain. She does report a cough productive of yellow mucus. She reports a history of COPD for which she sees Dr. Acosta in the outpatient setting. She has noted that her O2 satu ration at home usually ranges in the mid to high 80s and tops out in the low 90s. Of note, patient reports difficulty being extubated after her nephrectomy in March due to hypotension. She denies any headache, nausea or vomiting, fever or chills, palpitations, changes in urination or bowel habits. She reports a poor appetite. She denies any dizziness, numbness/weakness/tingling of the extremities. In the ED, she was noted to be hypotensive with BP as low as 71/31. Her respiratory rate was 24. She was tachycardic with heart rate in the 90s. She was saturating 87% on 2 L nasal cannula. CBC showed leukocytosis of 12 and platelet count of 468. Coagulation panel was within normal limits. D-dimer was 1.46. CMP showed sodium 135, potassium of 5.7, bicarb of 12, BUN of 46, creatinine of 4.45, glucose of 118, calcium of 8.3, alkaline phosphatase of 132 and albumin of 3.3. Troponin was 0.014. BNP was 356. Influenza, RSV and COVID-19 negative. VQ scan was negative for PE. Chest x-ray showed no infiltrate. EKG showed sinus rhythm with left anterior fascicular block, ventricular rate of 97. Patient admitted for acute hypoxic respiratory failure as well as acute kidney injury. Nephrology was consulted. Subjective: Patient seen and examined at bedside. No acute events overnight. Currently off of oxygen. She claims that she is making urine, but has a urinary catheter in place. She does get lightheaded occasionally when she gets out of the bed. She denies any chest pain, shortness of breath, abdominal pain. Pertinent positives and negatives as discussed above, a complete review of systems was performed and all other systems are negative. Vitals Signs Reviewed. General: nontoxic, no distress, appears at stated age Derm: warm, dry Head: atraumatic, normocephalic, symmetric Eyes: EOMI, no lid lag, anicteric sclera Mouth: no lip lesion, mucus membranes moist Cardiovascular: S1S2 reg, no murmur Lungs: CTA bilateral, no rhonchi, no rales , no accessory muscle use Abdominal: soft, nontender to palpation, no guarding, no appreciable organomegaly Ext: no gross muscle atrophy, no edema, no contractures Neuro: CN II-XI grossly intact, no focal neuro deficits Psych: Alert, oriented, appropriate affect Data Reviewed Today: Pertinent Labs: Sodium 134, potassium 3.5, creatinine 2.35, blood sugars range between 128-207, magnesium 1.6 Assessment and Plan: Active: Nonoliguric Acute kidney injury on chronic kidney disease, resolving Status post right nephrectomy in March 2022 due to malignancy Hypotension Acute COPD exacerbation Hyperglycemia, likely steroid-induced -Nephrology note reviewed: Midodrine dose increased 10 AC, EVERTON likely 2/2 ATN -Creatinine continues to improve -on 75cc/hr NS IV -Pulmonology note reviewed: Continue Symbicort BID, solumedrol 60mg IV q6h, duonebs QID, duonebs PRN -Also on oral doxycycline 100 mg 3 times a day -Sliding scale insulin, no changes today Resolved: Acute hypoxic respiratory failure Metabolic acidosis Chronic: KATHERYN Psychiatric disorder Hypothyroidism Dyslipidemia DVT ppx: lovenox Code status: full code Anticipated discharge place: Pending clinical course Anticipated discharge time: Pending clinical course Objective - Vital Signs Vital signs: Vital Signs Temp 97.3 F L 07/05/22 08:00 Pulse 66 07/05/22 12:25 Resp 18 07/05/22 12:25 BP 104/66 07/05/22 12:25 Pulse Ox 95 07/05/22 12:25 FiO2 Intake & Output 07/04/22 07/05/22 07/05/22 18:59 06:59 18:59 Intake Total 1018 118 Output Total 550 820 950 Balance 584 -820 832 Intake: Oral 1018 118 Output: Urine 550 820 950 Uretheral (Wells) 820 550 Other: Voiding Method Indwelling Catheter Indwelling Catheter Bedside Commode # Bowel Movements 1 2 - Labs CBC & Chem 7: 07/04/22 03:47 07/05/22 07:19 Labs: Abnormal Lab Results - Last 24 Hours (Table) 07/04/22 07/05/22 07/05/22 Range/Units 20:21 01:28 05:51 Sodium (137-145) mmol/L BUN (7-17) mg/dL Creatinine (0.52-1.04) mg/dL Glucose (74-99) mg/dL POC Glucose (mg/dL) 207 H 152 H 181 H (70-110) mg/dL Calcium (8.4-10.2) mg/dL 07/05/22 07/05/22 Range/Units 07:19 11:26 Sodium 134 L (137-145) mmol/L BUN 42 H (7-17) mg/dL Creatinine 2.35 H (0.52-1.04) mg/dL Glucose 128 H (74-99) mg/dL POC Glucose (mg/dL) 189 H (70-110) mg/dL Calcium 7.3 L (8.4-10.2) mg/dL Microbiology - Last 24 Hours (Table) 07/03/22 14:45 Blood Culture - Preliminary Blood No Growth after 24 hours
[2022-07-05] MEDS: CABOZANTINIB 40 MG PO SCH (15:08)
[2022-07-05] MEDS: LEVOTHYROXINE 112 MCG TAB PO SCH (15:08)
[2022-07-05 16:19] LABS: Glucose,Whole Blood 129 mg/dL (70-110)
[2022-07-05 20:58] LABS: Glucose,Whole Blood 245 mg/dL (70-110)
[2022-07-05] MEDS: ATORVASTATIN 40 MG TAB PO SCH (21:22)
[2022-07-05] MEDS: ZIPRASIDONE 60 MG CAP PO SCH (21:22)
[2022-07-06 03:30] VITALS: RESP 16
[2022-07-06 06:13] LABS: Glucose,Whole Blood 157 mg/dL (70-110)
[2022-07-06] MEDS: PANTOPRAZOLE 40 MG TABLET PO SCH (06:45)
[2022-07-06] MEDS: methylPREDNISolone SOD SUCCI 125 MG/2 ML VIAL IV SCH ×3 (06:45→16:29)
[2022-07-06] MEDS: INSULIN ASPART (NovoLOG) 100 UNIT/ML VIAL SQ SCH ×4 (06:46→21:13)
[2022-07-06] MEDS: MIDODRINE 5 MG TAB PO SCH ×3 (06:46→16:29)
[2022-07-06] MEDS: ENOXAPARIN 30 MG/0.3 ML SYRINGE SQ SCH (08:13)
[2022-07-06] MEDS: DOXYCYCLINE 100 MG CAP PO SCH ×2 (08:14→19:59)
[2022-07-06] MEDS: buPROPion SR 100 MG TABLET.ER PO SCH ×2 (08:14→19:59)
[2022-07-06] MEDS: ZIPRASIDONE 40 MG CAP PO SCH (08:15)
[2022-07-06] MEDS: PROPRANOLOL 20 MG TAB PO SCH ×2 (08:15→19:59)
[2022-07-06] MEDS: SYMBICORT 160-4.5 MCG INHALER INHALATION SCH ×2 (09:07→22:27)
[2022-07-06] MEDS: IPRATROPIUM-ALBUTEROL 3 ML NEB INHALATION SCH ×4 (09:07→22:27)
[2022-07-06 09:47] LABS: Basophils % (A) 0 %; Eosinophils % (A) 0 %; HCT 33.5 % (34.0-46.0); Lymphocytes # (A) 0.5 k/uL (1.0-4.8); Lymphocytes % (A) 5 %; MCH 32.4 pg (25.0-35.0); MCHC 32.8 g/dL (31.0-37.0); MCV 98.7 fL (80.0-100.0); Macrocytosis Slight; Monocytes # (A) 0.3 k/uL (0-1.0); Monocytes % (A) 3 %; Neutrophils # (A) 10.7 k/uL (1.3-7.7); Neutrophils % (A) 92 %; Platelet Count 323 k/uL (150-450); RBC 3.39 m/uL (3.80-5.40); RDW 15.8 % (11.5-15.5); WBC 11.6 k/uL (3.8-10.6)
[2022-07-06 10:09] LABS: Calcium 7.5 mg/dL (8.4-10.2); Potassium 3.9 mmol/L (3.5-5.1)
[2022-07-06 11:20] LABS: Glucose,Whole Blood 110 mg/dL (70-110)
--- NOTE | 2022-07-06 11:38 | P.PN ---
Subjective Patient is seen in follow-up for acute kidney injury on chronic kidney disease. Currently on normal saline. Wells catheter removed. Has been waiting on her own. Oral intake fair. No vomiting or diarrhea. Vital signs are stable. General: No acute distress. HEENT: Head exam is unremarkable. LUNGS: No audible rhonchi or wheezes. HEART: Rate and Rhythm are regular. ABDOMEN: Soft, nontender. EXTREMITITES: No edema. Objective - Vital Signs Vital signs: Vital Signs Temp 98.5 F 07/06/22 08:00 Pulse 68 07/06/22 09:39 Resp 16 07/06/22 08:00 BP 110/62 07/06/22 08:00 Pulse Ox 94 L 07/06/22 09:08 FiO2 Intake & Output 07/05/22 07/06/22 07/06/22 18:59 06:59 18:59 Intake Total 354 240 0 Output Total 950 600 Balance -596 -360 0 Intake: Oral 354 240 0 Output: Urine 950 600 Uretheral (Wells) 550 Other: Voiding Method Bedside Commode Bedside Commode Bedside Commode # Voids 2 1 # Bowel Movements 1 2 - Labs CBC & Chem 7: 07/06/22 09:07 07/06/22 09:07 Labs: Abnormal Lab Results - Last 24 Hours (Table) 07/05/22 07/05/22 07/06/22 Range/Units 16:18 20:56 06:11 WBC (3.8-10.6) k/uL RBC (3.80-5.40) m/uL Hgb (11.4-16.0) gm/dL Hct (34.0-46.0) % RDW (11.5-15.5) % Neutrophils # (1.3-7.7) k/uL Lymphocytes # (1.0-4.8) k/uL Chloride (98-107) mmol/L Carbon Dioxide (22-30) mmol/L BUN (7-17) mg/dL Creatinine (0.52-1.04) mg/dL Glucose (74-99) mg/dL POC Glucose (mg/dL) 129 H 245 H 157 H (70-110) mg/dL Calcium (8.4-10.2) mg/dL 07/06/22 07/06/22 Range/Units 09:07 09:07 WBC 11.6 H (3.8-10.6) k/uL RBC 3.39 L (3.80-5.40) m/uL Hgb 11.0 L (11.4-16.0) gm/dL Hct 33.5 L (34.0-46.0) % RDW 15.8 H (11.5-15.5) % Neutrophils # 10.7 H (1.3-7.7) k/uL Lymphocytes # 0.5 L (1.0-4.8) k/uL Chloride 110 H (98-107) mmol/L Carbon Dioxide 21 L (22-30) mmol/L BUN 36 H (7-17) mg/dL Creatinine 1.67 H (0.52-1.04) mg/dL Glucose 178 H (74-99) mg/dL POC Glucose (mg/dL) (70-110) mg/dL Calcium 7.5 L (8.4-10.2) mg/dL Microbiology - Last 24 Hours (Table) 07/03/22 14:45 Blood Culture - Preliminary Blood No Growth after 48 hours 07/03/22 15:14 Urine Culture - Preliminary Urine,Voided Gram Neg Bacilli Assessment and Plan Plan: Assessment: 1. Acute kidney injury secondary to ATN secondary to hypotension. Creatinine 4.4 on admission and is 1.67 today. No hydronephrosis noted on kidney ultrasound. 2. Chronic kidney disease stage IIIB. Baseline creatinine near 1.5 secondary to solitary left kidney. 3. Status post right nephrectomy in March 2022 due to malignancy. 4. Metabolic acidosis secondary to acute kidney injury. s/p bicarb drip. 5. Hypotension related to hypovolemia. Cortisol level not low. Blood pressure stable. 6. Hypokalemia from intrasellar shifting from IV bicarb. Plan: Maintain normal saline. Add po bicarb. Encouraged oral intake. Maintain midodrine - hold for systolic blood pressure greater than 110. Avoid nephrotoxins. Continue to monitor renal function and urine output.
--- NOTE | 2022-07-06 11:59 | P.PN ---
Subjective Progress Note Date: 07/06/22 Hospital Course: Patient is a 61-year-old female with PMH of right-sided renal cell cancer status post nephrectomy at [facility] in [place] on April 11, bipolar disorder/depression/anxiety, GERD, hypothyroidism, COPD, KATHERYN presents to the ED for worsening shortness of breath that has been ongoing since Monday. Patient reports progressively worsening shortness of breath, worse with exertion to the point she had to use her CPAP last night. When her symptoms continue to worsen this morning this prompted her to come to the ED. She denies any lower extremity swelling or orthopnea. She denies any chest pain. She does report a cough productive of yellow mucus. She reports a history of COPD for which she sees Dr. Acosta in the outpatient setting. She has noted that her O2 satura tion at home usually ranges in the mid to high 80s and tops out in the low 90s. Of note, patient reports difficulty being extubated after her nephrectomy in March due to hypotension. She denies any headache, nausea or vomiting, fever or chills, palpitations, changes in urination or bowel habits. She reports a poor appetite. She denies any dizziness, numbness/weakness/tingling of the extremities. In the ED, she was noted to be hypotensive with BP as low as 71/31. Her respiratory rate was 24. She was tachycardic with heart rate in the 90s. She was saturating 87% on 2 L nasal cannula. CBC showed leukocytosis of 12 and platelet count of 468. Coagulation panel was within normal limits. D- dimer was 1.46. CMP showed sodium 135, potassium of 5.7, bicarb of 12, BUN of 46, creatinine of 4.45, glucose of 118, calcium of 8.3, alkaline phosphatase of 132 and albumin of 3.3. Troponin was 0.014. BNP was 356. Influenza, RSV and COVID-19 negative. VQ scan was negative for PE. Chest x-ray showed no infiltrate. EKG showed sinus rhythm with left anterior fascicular block, ventricular rate of 97. Patient admitted for acute hypoxic respiratory failure as well as acute kidney injury. Nephrology was consulted. EVERTON improving with bicarb gtt. Now off of bicarb, only on NS now. Subjective: Patient seen and examined at bedside. No acute events overnight. She does get lightheaded occasionally when she gets out of the bed. She denies any chest pain, shortness of breath, abdominal pain. Pertinent positives and negatives as discussed above, a complete review of systems was performed and all other systems are negative. Vitals Signs Reviewed. General: nontoxic, no distress, appears at stated age Derm: warm, dry Head: atraumatic, normocephalic, symmetric Eyes: EOMI, no lid lag, anicteric sclera Mouth: no lip lesion, mucus membranes moist Cardiovascular: S1S2 reg, no murmur Lungs: CTA bilateral, no rhonchi, no rales , no accessory muscle use Abdominal: soft, nontender to palpation, no guarding, no appreciable organomegaly Ext: no gross muscle atrophy, no edema, no contractures Neuro: CN II-XI grossly intact, no focal neuro deficits Psych: Alert, oriented, appropriate affect Data Reviewed Today: Pertinent Labs: Sodium 138, potassium 3.9, creatinine 1.67, blood sugars range between 110-245, magnesium 2 Assessment and Plan: Active: Nonoliguric Acute kidney injury on chronic kidney disease, resolving Status post right nephrectomy in March 2022 due to malignancy Orthostatic Hypotension Acute COPD exacerbation Hyperglycemia, likely steroid-induced -Nephrology note reviewed: Started on oral bicarbonate, continue monitoring -Creatinine continues to improve -on 75cc/hr NS IV -Orthostatic vitals ordered -Oncology also following -Pulmonology following, Continue Symbicort BID, solumedrol 60mg IV q6h, duonebs QID, duonebs PRN -Also on oral doxycycline 100 mg 2 times a day, empirically -Sliding scale insulin, no changes today Resolved: Acute hypoxic respiratory failure Metabolic acidosis Chronic: KATHERYN Psychiatric disorder Hypothyroidism Dyslipidemia DVT ppx: lovenox Code status: full code Anticipated discharge place: Pending clinical course Anticipated discharge time: Pending clinical course Objective - Vital Signs Vital signs: Vital Signs Temp 98.5 F 07/06/22 08:00 Pulse 68 07/06/22 09:39 Resp 16 07/06/22 08:00 BP 110/62 07/06/22 08:00 Pulse Ox 94 L 07/06/22 09:08 FiO2 Intake & Output 07/05/22 07/06/22 07/06/22 18:59 06:59 18:59 Intake Total 354 240 0 Output Total 950 600 Balance -596 -360 0 Intake: Oral 354 240 0 Output: Urine 950 600 Uretheral (Wells) 550 Other: Voiding Method Bedside Commode Bedside Commode Bedside Commode # Voids 2 1 # Bowel Movements 1 2 - Labs CBC & Chem 7: 07/06/22 09:07 07/06/22 09:07 Labs: Abnormal Lab Results - Last 24 Hours (Table) 07/05/22 07/05/22 07/06/22 Range/Units 16:18 20:56 06:11 WBC (3.8-10.6) k/uL RBC (3.80-5.40) m/uL Hgb (11.4-16.0) gm/dL Hct (34.0-46.0) % RDW (11.5-15.5) % Neutrophils # (1.3-7.7) k/uL Lymphocytes # (1.0-4.8) k/uL Chloride (98-107) mmol/L Carbon Dioxide (22-30) mmol/L BUN (7-17) mg/dL Creatinine (0.52-1.04) mg/dL Glucose (74-99) mg/dL POC Glucose (mg/dL) 129 H 245 H 157 H (70-110) mg/dL Calcium (8.4-10.2) mg/dL 07/06/22 07/06/22 Range/Units 09:07 09:07 WBC 11.6 H (3.8-10.6) k/uL RBC 3.39 L (3.80-5.40) m/uL Hgb 11.0 L (11.4-16.0) gm/dL Hct 33.5 L (34.0-46.0) % RDW 15.8 H (11.5-15.5) % Neutrophils # 10.7 H (1.3-7.7) k/uL Lymphocytes # 0.5 L (1.0-4.8) k/uL Chloride 110 H (98-107) mmol/L Carbon Dioxide 21 L (22-30) mmol/L BUN 36 H (7-17) mg/dL Creatinine 1.67 H (0.52-1.04) mg/dL Glucose 178 H (74-99) mg/dL POC Glucose (mg/dL) (70-110) mg/dL Calcium 7.5 L (8.4-10.2) mg/dL Microbiology - Last 24 Hours (Table) 07/03/22 14:45 Blood Culture - Preliminary Blood No Growth after 48 hours 07/03/22 15:14 Urine Culture - Preliminary Urine,Voided Gram Neg Bacilli
[2022-07-06] MEDS: SODIUM CHLORIDE 0.9% 1,000 ML IV SCH (12:07)
[2022-07-06] MEDS: SODIUM BICARBONATE TAB 650 MG TAB PO SCH ×2 (12:07→19:59)
--- NOTE | 2022-07-06 12:18 | P.PN ---
Subjective Progress Note Date: 07/06/22 Principal diagnosis: SOB, hx RCC At today's visit patient is resting comfortably in bed. She states she is feeling much improved. Reports shortness of breath has improved. Denies pain. Reports she is experiencing cough. No other reported complaints Objective - Vital Signs Vital signs: Vital Signs Temp 98.5 F 07/06/22 08:00 Pulse 68 07/06/22 09:39 Resp 16 07/06/22 08:00 BP 110/62 07/06/22 08:00 Pulse Ox 94 L 07/06/22 09:08 FiO2 Intake & Output 07/05/22 07/06/22 07/06/22 18:59 06:59 18:59 Intake Total 354 240 0 Output Total 950 600 Balance -596 -360 0 Intake: Oral 354 240 0 Output: Urine 950 600 Uretheral (Wells) 550 Other: Voiding Method Bedside Commode Bedside Commode Bedside Commode # Voids 2 1 # Bowel Movements 1 2 - Constitutional General appearance: Present: average body habitus, no acute distress - EENT Eyes: Present: anicteric sclerae, EOMI ENT: Present: hearing grossly normal - Respiratory Details: Breathing is even and unlabored - Cardiovascular Details: Skin is warm and dry - Integumentary Integumentary: Present: normal - Neurologic Neurologic Comment(s): Grossly intact - Musculoskeletal Musculoskeletal: Present: strength equal bilaterally - Psychiatric Psychiatric: Present: A&O x's 3, appropriate affect, intact judgment & insight - Labs CBC & Chem 7: 07/06/22 09:07 07/06/22 09:07 Labs: Abnormal Lab Results - Last 24 Hours (Table) 07/05/22 07/05/22 07/06/22 Range/Units 16:18 20:56 06:11 WBC (3.8-10.6) k/uL RBC (3.80-5.40) m/uL Hgb (11.4-16.0) gm/dL Hct (34.0-46.0) % RDW (11.5-15.5) % Neutrophils # (1.3-7.7) k/uL Lymphocytes # (1.0-4.8) k/uL Chloride (98-107) mmol/L Carbon Dioxide (22-30) mmol/L BUN (7-17) mg/dL Creatinine (0.52-1.04) mg/dL Glucose (74-99) mg/dL POC Glucose (mg/dL) 129 H 245 H 157 H (70-110) mg/dL Calcium (8.4-10.2) mg/dL 07/06/22 07/06/22 Range/Units 09:07 09:07 WBC 11.6 H (3.8-10.6) k/uL RBC 3.39 L (3.80-5.40) m/uL Hgb 11.0 L (11.4-16.0) gm/dL Hct 33.5 L (34.0-46.0) % RDW 15.8 H (11.5-15.5) % Neutrophils # 10.7 H (1.3-7.7) k/uL Lymphocytes # 0.5 L (1.0-4.8) k/uL Chloride 110 H (98-107) mmol/L Carbon Dioxide 21 L (22-30) mmol/L BUN 36 H (7-17) mg/dL Creatinine 1.67 H (0.52-1.04) mg/dL Glucose 178 H (74-99) mg/dL POC Glucose (mg/dL) (70-110) mg/dL Calcium 7.5 L (8.4-10.2) mg/dL Microbiology - Last 24 Hours (Table) 07/03/22 14:45 Blood Culture - Preliminary Blood No Growth after 48 hours 07/03/22 15:14 Urine Culture - Preliminary Urine,Voided Gram Neg Bacilli - Imaging and Cardiology CT scan - chest: report reviewed Assessment and Plan (1) Renal cell cancer Current Visit: Yes Status: Acute Code(s): C64.9 - MALIGNANT NEOPLASM OF UNSP KIDNEY, EXCEPT RENAL PELVIS SNOMED Code(s): 196641360 (2) Dyspnea Current Visit: Yes Status: Acute Code(s): R06.00 - DYSPNEA, UNSPECIFIED SNOMED Code(s): 262145706 Plan: Renal cell carcinoma: -She is a patient of Dr. Campbell at [facility]. She has a history of a right nephrectomy in March 2022 and is currently on cabometyx and nivolumab treatment. -Renal ultrasound revealed no evidence of obstructive uropathy. Left renal cyst is seen on prior CT. -Ok to continue canometyx, as long as no bleeding episodes -Will f/u with primary oncologist upon discharge to discuss restarting opdivo once recovered from acute condition SOB: -VQ scan was negative for PE. Chest x-ray showed no acute processes. -CT chest wo ordered to r/o underlying pneumonitis r/t immunotherapy. Scan revealed development of a few pulmonary nodules measuring up to 8 mm. This may relate to metastatic disease. Cholelithiasis. No pneumonitis noted -She was started on empiric doxycycline. Oxygen saturation 94% on room air, breathing continues to improve. Pulmonology following.
--- NOTE | 2022-07-06 12:37 | P.PN ---
Subjective Progress Note Date: 07/06/22 I am seeing this patient today 07/04/2022 in new consultation for acute COPD exacerbation. Patient is a 61-year-old female with past medical history of moderate COPD with an FEV1 60% of predicted, obstructive sleep apnea utilizing a CPAP of 12 cm H2O at bedtime, recent ex-smoker quitting March 21 of this year, right-sided renal carcinoma status post right nephrectomy receiving targeted therapy with Cabometyx and Nivolumab, hypothyroidism, GERD. Patient does follow with Dr. Acosta in outpatient setting for management of her COPD and KATHERYN. Patient presented to the emergency room yesterday evening with the chief complaint of shortness of breath starting approximately 2 days ago. Patient does report a productive cough approximately 1 week ago with yellow- green sputum production. Since then, patient denies any persistent cough, fevers, chills, chest pain, hemoptysis. Patient also denies any heart palpitations, lightheadedness, syncope, lower extremity swelling, orthopnea. She did report a "GI bug" approximately a week ago that involved nausea, vomiting, diarrhea. This has since stopped, although, patient reports recurrent diarrhea with her cancer medications. Denies abdominal pain. While in the emergency room, patient was hypotensive, with a blood pressure 70s over 40s, requiring fluid resuscitation with 2 L normal saline. Patient is currently sitting in bed, on 4 L nasal cannula, in no acute distress. She is oxygenating 100% with current FiO2. Patient actually states that she is feeling much better now. Chest x-ray on arrival showed some focal left midline linear scarring without any new acute infiltrates. Patient's d-dimer was elevated at 1.46 on arrival. Follow-up VQ scan was negative for pulmonary embolism. Patient's CBC on arrival showed some mild leukocytosis with a WBC count of 12, hemoglobin 15.7, hematocrit 48.9, platelets 460,000. BMP on arrival shows a sodium 135, potassium 5.7, chloride 106, serum CO2 12, BUN 46, creatinine 4.45, glucose 118. Renal ultrasound showed a surgically absent right kidney; no evidence of obstructive uropathy on the left; and a left renal cyst that was seen on prior CT. Normal saline is infusing at 50 ML's per hour. Troponin negative 1. NT proBNP was low at 306. Afebrile. Vital signs are currently stable. On today's evaluation of or 2022, the patient is being seen for a follow-up. She was hospitalized for shortness of breath, COPD exacerbation and the patient also had a acute kidney injury. She is known to have COPD with an FEV1 of 60% of predicted and the patient also is known to have a right renal cell carcinoma with a previous right nephrectomy and currently she is on targeted treatment. A CAT scan of the chest was done yesterday on 07/04/2022 and showed development a few pulmonary nodules measuring up to 8 mm in size. This could be potentially metastatic. Otherwise no other acute abnormalities were seen. The creatinine is improving and currently is down to 2.3 with a BUN of 42 and a sodium of 134. There is +12.5 with hemoglobin 12.9 and a platelet count of 341. The patient is currently on DuoNeb neb on the clock, Symbicort, doxycycline as an empiric antibiotic coverage and the patient is also on IV Solu-Medrol 60 mg every 6 hours. On today's evaluation of 07/06/2022, the patient is being seen follow-up regarding her acute COPD exacerbation. She also has an acute kidney injury. She is feeling better. She still having some cough and she is requesting a cough medication. She remains on Symbicort, DuoNeb's [id number], and she is also on doxycycline. She remains on IV Solu-Medrol.Blood work from today shows an elderly scan of 11.6, hemoglobin is 11, BUN is at 36 and a creatinine is 1.6 and a sodium level is at 138. Note that the creatinine continues to improve and the creatinine is down to 1.67. Objective - Vital Signs Vital signs: Vital Signs Temp 98.5 F 07/06/22 08:00 Pulse 68 07/06/22 09:39 Resp 16 07/06/22 08:00 BP 110/62 07/06/22 08:00 Pulse Ox 94 L 07/06/22 09:08 FiO2 Intake & Output 07/05/22 07/06/22 07/06/22 18:59 06:59 18:59 Intake Total 354 240 0 Output Total 950 600 Balance -596 -360 0 Intake: Oral 354 240 0 Output: Urine 950 600 Uretheral (Wells) 550 Other: Voiding Method Bedside Commode Bedside Commode Bedside Commode # Voids 2 1 # Bowel Movements 1 2 - Exam GENERAL EXAM: Alert, 59-year-old white female, comfortable in no apparent di stress. She is currently on room air O2 HEAD: Normocephalic and atraumatic EYES: Normal reaction of pupils, equal size. NOSE: Clear with pink turbinates. THROAT: No erythema or exudates. Dry mucous membranes NECK: No masses, no JVD. CHEST: No chest wall deformity. LUNGS: Equal air entry with no crackles, wheeze, rhonchi or dullness. No conversational dyspnea or accessory muscle use.. CVS: S1 and S2 normal with no audible murmur, regular rhythm. No extra heart sounds ABDOMEN: No hepatosplenomegaly, active bowel sounds, no guarding or rigidity. SPINE: No scoliosis or deformity. No CVA tenderness on the left SKIN: No rashes. Abdominal surgical incision is approximated and almost fully healed CENTRAL NERVOUS SYSTEM: No focal deficits, tone is normal in all 4 extremities. EXTREMITIES: There is no peripheral edema, clubbing, or cyanosis. Peripheral pulses are intact. - Labs CBC & Chem 7: 07/06/22 09:07 07/06/22 09:07 Labs: Abnormal Lab Results - Last 24 Hours (Table) 07/05/22 07/05/22 07/06/22 Range/Units 16:18 20:56 06:11 WBC (3.8-10.6) k/uL RBC (3.80-5.40) m/uL Hgb (11.4-16.0) gm/dL Hct (34.0-46.0) % RDW (11.5-15.5) % Neutrophils # (1.3-7.7) k/uL Lymphocytes # (1.0-4.8) k/uL Chloride (98-107) mmol/L Carbon Dioxide (22-30) mmol/L BUN (7-17) mg/dL Creatinine (0.52-1.04) mg/dL Glucose (74-99) mg/dL POC Glucose (mg/dL) 129 H 245 H 157 H (70-110) mg/dL Calcium (8.4-10.2) mg/dL 07/06/22 07/06/22 Range/Units 09:07 09:07 WBC 11.6 H (3.8-10.6) k/uL RBC 3.39 L (3.80-5.40) m/uL Hgb 11.0 L (11.4-16.0) gm/dL Hct 33.5 L (34.0-46.0) % RDW 15.8 H (11.5-15.5) % Neutrophils # 10.7 H (1.3-7.7) k/uL Lymphocytes # 0.5 L (1.0-4.8) k/uL Chloride 110 H (98-107) mmol/L Carbon Dioxide 21 L (22-30) mmol/L BUN 36 H (7-17) mg/dL Creatinine 1.67 H (0.52-1.04) mg/dL Glucose 178 H (74-99) mg/dL POC Glucose (mg/dL) (70-110) mg/dL Calcium 7.5 L (8.4-10.2) mg/dL Microbiology - Last 24 Hours (Table) 07/03/22 14:45 Blood Culture - Preliminary Blood No Growth after 48 hours 07/03/22 15:14 Urine Culture - Preliminary Urine,Voided Gram Neg Bacilli Assessment and Plan Plan: Acute COPD exacerbation. No obvious signs of pneumonia on chest x-ray. The patient is clinically improving Acute hypoxic respiratory failure secondary to above. . Currently she is on room air O2 Acute kidney injury, creatinine continues to improve High anion gap metabolic acidosis secondary to above Recent history of right nephrectomy, at [facility] on April 11, 2022, due to reported renal carcinoma. Patient is currently taking combination of Cabometyx and Nivolumab. Subcentimeter pulmonary nodule could be potentially metastatic. CAT scan of the chest done on 07/04/2022 showed development a few pulmonary nodules measuring up to 8 mm in size that needs to be further followed up on outpatient basis. These nodules on the left upper lobe, right lower lobe and the right upper lobe. Suspected gastroenteritis, recovered Dehydration secondary to above Obstructive sleep apnea with a baseline AHI of 16, patient normally utilizes a CPAP of 12 cm H2O Plan: Clinically improved Patient is on room air oxygen Renal function continues to improve Continue bronchodilators and steroids Renal function is improving CAT scan of the chest was noted, outpatient follow-up will be needed regarding those abnormalities Symbicort inhaler Continue bronchodilators Encourage patient to bring in home CPAP unit empiric doxycycline Check pro calcitonin level is 0.3 Blood and urine cultures are negative Repeat labs in the morning Lovenox for DVT prophylaxis Protonix for GI prophylaxis We will continue to follow
[2022-07-06 16:13] LABS: Glucose,Whole Blood 136 mg/dL (70-110)
[2022-07-06] MEDS: CABOZANTINIB 40 MG PO SCH (16:30)
[2022-07-06] MEDS: LEVOTHYROXINE 112 MCG TAB PO SCH (16:30)
[2022-07-06] MEDS: ZIPRASIDONE 60 MG CAP PO SCH (19:59)
[2022-07-06] MEDS: ATORVASTATIN 40 MG TAB PO SCH (19:59)
[2022-07-06] MEDS ORDERED: BENZONATATE 100 MG CAP PO PRN (20:08)
[2022-07-06 20:28] LABS: Glucose,Whole Blood 181 mg/dL (70-110)
[2022-07-07] MEDS: methylPREDNISolone SOD SUCCI 125 MG/2 ML VIAL IV SCH ×3 (00:08→12:18)
[2022-07-07] MEDS: SODIUM CHLORIDE 0.9% 1,000 ML IV SCH (02:34)
[2022-07-07 06:12] LABS: Glucose,Whole Blood 132 mg/dL (70-110)
[2022-07-07] MEDS: INSULIN ASPART (NovoLOG) 100 UNIT/ML VIAL SQ SCH ×2 (06:12→12:13)
[2022-07-07] MEDS: MIDODRINE 5 MG TAB PO SCH ×2 (06:17→12:13)
[2022-07-07] MEDS: PANTOPRAZOLE 40 MG TABLET PO SCH (06:20)
[2022-07-07] MEDS: ZIPRASIDONE 40 MG CAP PO SCH (08:23)
[2022-07-07] MEDS: ENOXAPARIN 30 MG/0.3 ML SYRINGE SQ SCH (08:23)
[2022-07-07] MEDS: PROPRANOLOL 20 MG TAB PO SCH (08:23)
[2022-07-07] MEDS: DOXYCYCLINE 100 MG CAP PO SCH (08:23)
[2022-07-07] MEDS: buPROPion SR 100 MG TABLET.ER PO SCH (08:23)
[2022-07-07] MEDS: SODIUM BICARBONATE TAB 650 MG TAB PO SCH (08:23)
[2022-07-07] MEDS: SYMBICORT 160-4.5 MCG INHALER INHALATION SCH (08:47)
[2022-07-07] MEDS: IPRATROPIUM-ALBUTEROL 3 ML NEB INHALATION SCH ×2 (08:47→12:19)
[2022-07-07 08:59] VITALS: TEMP 98.1
[2022-07-07 10:17] LABS: Calcium 7.5 mg/dL (8.4-10.2); Potassium 3.6 mmol/L (3.5-5.1)
[2022-07-07] MEDS: MAGNESIUM SULFATE-D5W PMX 1 GM in DEXTROSE/WATER 1 100ML.BAG IVPB SCH ×2 (10:52→12:18)
[2022-07-07 11:44] LABS: Glucose,Whole Blood 138 mg/dL (70-110)
[2022-07-07] MEDS ORDERED: POTASSIUM CHLORIDE ER 20 MEQ TAB.ER PO STA (12:01)
--- NOTE | 2022-07-07 12:02 | P.PN ---
Subjective Patient is seen in follow-up for acute kidney injury on chronic kidney disease. Renal function continues to improve. Currently on normal saline. Wells catheter removed. Has been waiting on her own. Oral intake fair. No vomiting or diarrhea. Vital signs are stable. General: No acute distress. HEENT: Head exam is unremarkable. LUNGS: No audible rhonchi or wheezes. HEART: Rate and Rhythm are regular. ABDOMEN: Soft, nontender. EXTREMITITES: No edema. Objective - Vital Signs Vital signs: Vital Signs Temp 98.1 F 07/07/22 07:45 Pulse 56 L 07/07/22 09:06 Resp 16 07/07/22 07:45 BP 138/85 07/07/22 07:45 Pulse Ox 95 07/07/22 08:48 FiO2 Intake & Output 07/06/22 07/07/22 07/07/22 18:59 06:59 18:59 Intake Total 1080 10 Output Total 700 Balance 1080 -690 Intake: IV 10 Invasive Line 2 10 Intake, IV Titration 600 Amount Sodium Chloride 0.9% 1, 600 000 ml @ 75 mls/hr IV . [id number] [facility] Rx#:[id number] Oral 480 Output: Urine 700 Other: Voiding Method Bedside Commode Bedside Commode Bedside Commode # Voids 2 # Bowel Movements 1 - Labs CBC & Chem 7: 07/06/22 09:07 07/07/22 08:19 Labs: Abnormal Lab Results - Last 24 Hours (Table) 07/06/22 07/06/22 07/07/22 Range/Units 16:11 20:27 06:10 Chloride (98-107) mmol/L BUN (7-17) mg/dL Creatinine (0.52-1.04) mg/dL Glucose (74-99) mg/dL POC Glucose (mg/dL) 136 H 181 H 132 H (70-110) mg/dL Calcium (8.4-10.2) mg/dL Magnesium (1.6-2.3) mg/dL 07/07/22 07/07/22 07/07/22 Range/Units 08:19 08:19 11:40 Chloride 110 H (98-107) mmol/L BUN 32 H (7-17) mg/dL Creatinine 1.53 H (0.52-1.04) mg/dL Glucose 115 H (74-99) mg/dL POC Glucose (mg/dL) 138 H (70-110) mg/dL Calcium 7.5 L (8.4-10.2) mg/dL Magnesium 1.5 L (1.6-2.3) mg/dL Microbiology - Last 24 Hours (Table) 07/03/22 14:45 Blood Culture - Preliminary Blood No Growth after 72 hours 07/03/22 15:14 Urine Culture - Final Urine,Voided Klebsiella pneumoniae Assessment and Plan Plan: Assessment: 1. Acute kidney injury secondary to ATN secondary to hypotension. Creatinine 4.4 on admission and is 1.53 today. No hydronephrosis noted on kidney ultrasound. 2. Chronic kidney disease stage IIIB. Baseline creatinine near 1.5 secondary to solitary left kidney. 3. Status post right nephrectomy in March 2022 due to malignancy. 4. Metabolic acidosis secondary to acute kidney injury. s/p bicarb drip. Now on oral bicarb. Better. 5. Hypotension related to hypovolemia. Cortisol level not low. Blood pressure stable. 6. Hypokalemia from intracellular shifting from IV bicarb. 7. Hypomagnesemia from GI losses and poor intake. Being replaced. Plan: Hep-Lock IV fluids. Replace potassium and magnesium. Add oral magnesium oxide. Encouraged oral intake. Maintain midodrine - hold for systolic blood pressure greater than 110. Avoid nephrotoxins. Continue to monitor renal function and urine output. Follow-up outpatient in 1-2 weeks postdischarge.
[2022-07-07 12:37] VITALS: BP 127/68; PULSE 65
--- NOTE | 2022-07-07 13:19 | P.DS ---
Providers Date of admission: 07/03/22 10:21 Expected date of discharge: 07/07/22 Attending physician: Elda Larose MD Consults: 07/03/22 10:21 Consult Physician Urgent Consulting Provider: Ana Paula Justin Consult Reason/Comments: everton Do you want consulting provider notified?: Yes 07/03/22 14:39 Consult Physician Routine Consulting Provider: Parish Soni Consult Reason/Comments: COPD, hypoxia Do you want consulting provider notified?: Yes 07/04/22 08:41 Consult Physician Routine Consulting Provider: Irving Mckeon Consult Reason/Comments: RCC Do you want consulting provider notified?: Yes Primary care physician: Sylvester Saenz MD Hospital Course: Discharge Diagnosis: Nonoliguric Acute kidney injury on chronic kidney disease Metabolic acidosis Status post right nephrectomy in March 2022 due to malignancy Orthostatic Hypotension Acute hypoxic respiratory failure Acute COPD exacerbation Hyperglycemia, likely steroid-induced Hospital Course: Patient is a 61-year-old female with PMH of right-sided renal cell cancer status post nephrectomy at [facility] in [place] on April 11, bipolar disorder/depression/anxiety, GERD, hypothyroidism, COPD, KATHERYN presents to the ED for worsening shortness of breath that has been ongoing since Monday. In the ED, she was noted to be hypotensive with BP as low as 71/31. Her respiratory rate was 24. She was tachycardic with heart rate in the 90s. She was saturating 87% on 2 L nasal cannula. CBC showed leukocytosis of 12 and platelet count of 468. Coagulation panel was within normal limits. D-dimer was 1.46. CMP showed sodium 135, potassium of 5.7, bicarb of 12, BUN of 46, creatinine of 4.45, glucose of 118, calcium of 8.3, alkaline phosphatase of 132 and albumin of 3.3. Troponin was 0.014. BNP was 356. Influenza, RSV and COVID-19 negative. VQ scan was negative for PE. Chest x-ray showed no infiltrate. EKG showed sinus rhythm with left anterior fascicular block, ventricular rate of 97. Patient admitted for acute hypoxic respiratory failure as well as acute kidney injury. Acute hypoxic respiratory failure likely in the setting of acute COPD exacerbation. Pulmonology was consulted. Patient was on bronchodilators and IV steroids. Pending discharge on Medrol Dosepak. Nephrology was consulted. EVERTON improving with bicarb gtt. patient being discharged on oral bicarb. She likely had orthostatic hypotension, improved with fluids and midodrine. She is also seen by oncology, resumed immunotherapy. Patient seen and examined at bedside. Vital signs reviewed and stable. General: nontoxic, no distress, appears at stated age Derm: warm, dry Head: atraumatic, normocephalic, symmetric Eyes: EOMI, no lid lag, anicteric sclera Mouth: no lip lesion, mucus membranes moist Cardiovascular: S1S2 reg, no murmur Lungs: CTA bilateral, no rhonchi, no rales , no accessory muscle use Abdominal: soft, nontender to palpation, no guarding, no appreciable organomegaly Ext: no gross muscle atrophy, no edema, no contractures Neuro: CN II-XI grossly intact, no focal neuro deficits Psych: Alert, oriented, appropriate affect A total of 37 minutes of time were spent preparing this complex discharge summary. Patient was discharged on 07/07/22 and 13:15. Patient Condition at Discharge: Stable Plan - Discharge Summary Discharge Rx Participant: No New Discharge Prescriptions: New Magnesium Oxide [Mag-Ox] 400 mg PO DAILY #90 tab methylPREDNISolone Dose Pack [Medrol Dose Pack] 4 mg PO DIRECTED #1 packet Midodrine [ProAmatine] 10 mg PO AC-TID #120 tab Sodium Bicarbonate Tab 650 mg PO BID #90 tab Benzonatate [Tessalon Perles] 200 mg PO TID PRN #30 cap PRN Reason: Cough Doxycycline [Vibramycin] 100 mg PO BID #120 cap Continue Ziprasidone [Geodon] 40 mg PO DAILY Cyanocobalamin [Vitamin B-12 Injection] 1,000 mcg SQ Q30D Mesalamine [Delzicol] 800 mg PO TID Propranolol HCl 20 mg PO BID Omeprazole 40 mg PO DAILY Albuterol Inhaler [Ventolin Hfa Inhaler] 2 puff INHALATION RT-Q6H PRN PRN Reason: Shortness Of Breath ALPRAZolam [Xanax] 0.5 mg PO DAILY PRN PRN Reason: Anxiety buPROPion HCL [Wellbutrin SR] 200 mg PO BID Ziprasidone [Geodon] 60 mg PO HS Fluticasone Propion/Salmeterol [Advair 500-50 Diskus] 1 puff INHALATION RT- BID Nivolumab(Unknown Dose) 1 dose IV Q30D Levothyroxine Sodium [Synthroid] 112 mcg PO DAILY@1500 Multivitamins, Thera [Multivitamin (formulary)] 1 tab PO DAILY Atorvastatin Calcium [Lipitor] 40 mg PO HS Albuterol Nebulized [Ventolin Nebulized] 2.5 mg INHALATION RT-QID PRN PRN Reason: Shortness Of Breath Cabozantinib S-Malate [Cabometyx] 40 mg PO DAILY@1500 Discontinued Dicyclomine HCl 20 mg PO TID Discharge Medication List Ziprasidone [Geodon] 40 mg PO DAILY 02/07/14 [History] Cyanocobalamin [Vitamin B-12 Injection] 1,000 mcg SQ Q30D 02/01/15 [History] ALPRAZolam [Xanax] 0.5 mg PO DAILY PRN 11/07/17 [History] Albuterol Inhaler [Ventolin Hfa Inhaler] 2 puff INHALATION RT-Q6H PRN 11/07/17 [History] Mesalamine [Delzicol] 800 mg PO TID 11/07/17 [History] Omeprazole 40 mg PO DAILY 11/07/17 [History] Propranolol HCl 20 mg PO BID 11/07/17 [History] Albuterol Nebulized [Ventolin Nebulized] 2.5 mg INHALATION RT-QID PRN 07/03/22 [History] Atorvastatin Calcium [Lipitor] 40 mg PO HS 07/03/22 [History] Cabozantinib S-Malate [Cabometyx] 40 mg PO DAILY@1500 07/03/22 [History] Fluticasone Propion/Salmeterol [Advair 500-50 Diskus] 1 puff INHALATION RT-BID 07/03/22 [History] Levothyroxine Sodium [Synthroid] 112 mcg PO DAILY@1500 07/03/22 [History] Multivitamins, Thera [Multivitamin (formulary)] 1 tab PO DAILY 07/03/22 [History] Nivolumab(Unknown Dose) 1 dose IV Q30D 07/03/22 [History] Ziprasidone [Geodon] 60 mg PO HS 07/03/22 [History] buPROPion HCL [Wellbutrin SR] 200 mg PO BID 07/03/22 [History] Benzonatate [Tessalon Perles] 200 mg PO TID PRN #30 cap 07/07/22 [Rx] Doxycycline [Vibramycin] 100 mg PO BID #120 cap 07/07/22 [Rx] Magnesium Oxide [Mag-Ox] 400 mg PO DAILY #90 tab 07/07/22 [Rx] Midodrine [ProAmatine] 10 mg PO AC-TID #120 tab 07/07/22 [Rx] Sodium Bicarbonate Tab 650 mg PO BID #90 tab 07/07/22 [Rx] methylPREDNISolone Dose Pack [Medrol Dose Pack] 4 mg PO DIRECTED #1 packet 07/07/22 [Rx] Follow up Appointment(s)/Referral(s): Irving Mckeon MD [STAFF PHYSICIAN] - 1 Week Sylvester Saenz MD [Primary Care Provider] - 1-2 days Terrell Caba DO [STAFF PHYSICIAN] - 1 Week Rosales Acosta MD [STAFF PHYSICIAN] - 1 Week Patient Instructions/Handouts: Acute Kidney Injury (DC), COPD (Chronic Obstructive Pulmonary Disease) (DC) Activity/Diet/Wound Care/Special Instructions: Please see your oncologist and appetizer packer. Discharge Disposition: HOME SELF-CARE
[2022-07-08] MEDS ORDERED: MAGNESIUM OXIDE 400 MG TAB PO SCH (09:00)
== END 2022-07-07 15:25 | disposition home or self-care (01) | DRG 190 ==
LOC: EC 08:51 → 3SCARD 10:21
PROVIDERS: ADMIT Family Medicine; ATTEND Family Medicine
DX: J44.1 Chronic obstructive pulmonary disease with (acute) exacerbation (principal); J96.01 Acute respiratory failure with hypoxia; N17.0 Acute kidney failure with tubular necrosis; E87.20 Acidosis, unspecified; R65.10 Systemic inflammatory response syndrome (SIRS) of non-infectious origin without acute organ dysfunction; N39.0 Urinary tract infection, site not specified; Z16.11 Resistance to penicillins; E86.0 Dehydration; N18.32 Chronic kidney disease, stage 3b; I12.9 Hypertensive chronic kidney disease with stage 1 through stage 4 chronic kidney disease, or unspecified chronic kidney disease; E03.9 Hypothyroidism, unspecified; F31.9 Bipolar disorder, unspecified; E87.5 Hyperkalemia; E78.5 Hyperlipidemia, unspecified; I95.1 Orthostatic hypotension; R73.9 Hyperglycemia, unspecified; T38.0X5A Adverse effect of glucocorticoids and synthetic analogues, initial encounter; G47.33 Obstructive sleep apnea (adult) (pediatric); F41.9 Anxiety disorder, unspecified; I44.4 Left anterior fascicular block; R79.89 Other specified abnormal findings of blood chemistry; N28.1 Cyst of kidney, acquired; K52.9 Noninfective gastroenteritis and colitis, unspecified; B96.1 Klebsiella pneumoniae [K. pneumoniae] as the cause of diseases classified elsewhere; E86.1 Hypovolemia; R01.1 Cardiac murmur, unspecified; R91.8 Other nonspecific abnormal finding of lung field; E83.42 Hypomagnesemia; T47.1X5A Adverse effect of other antacids and anti-gastric-secretion drugs, initial encounter; E87.6 Hypokalemia; R63.0 Anorexia; K21.9 Gastro-esophageal reflux disease without esophagitis; Z20.822 Contact with and (suspected) exposure to COVID-19; Z90.5 Acquired absence of kidney; Z85.528 Personal history of other malignant neoplasm of kidney; Z88.0 Allergy status to penicillin; Z88.2 Allergy status to sulfonamides; Z88.5 Allergy status to narcotic agent; Z88.6 Allergy status to analgesic agent; Z79.899 Other long term (current) drug therapy; Z79.51 Long term (current) use of inhaled steroids; Z79.82 Long term (current) use of aspirin; Z79.890 Hormone replacement therapy; Z87.891 Personal history of nicotine dependence
CPT/HCPCS: 36415; 71046; 71250; 76770; 78582; 80048; 80053; 81001; 82533; 83605; 83735; 83880; 84100; 84145; 84484; 85025; 85379; 85610; 85730; 87040; 87077; 87086; 87186; 87636; 93005; 94640; 94760; 96361; 96374; 99291

== ENCOUNTER → 2022-09-15 | Outpatient (CLI) | payer MEDICARE, OTHER ==
--- NOTE | 2022-09-15 17:28 | CT ---
EXAMINATION TYPE: CT ChestAbdPelvis wo con CT DLP: 411.1 mGycm, Automated exposure control for dose reduction was used. DATE OF EXAM: 09/15/2022 5:14 PM COMPARISON: CT chest 07/04/2022, CT chest abdomen 09/15/2021. CLINICAL INDICATION:Female, 62 years old with history of C64.1; PHH, Hx of rt side kidney CA, Kidney was removed. Suspected mets. Pt c/o bowel incontinence. Technique: Multiple axial images of the chest, abdomen, and pelvis were obtained without the administ ration of oral or intravenous contrast. Two-dimensional coronal and sagittal reconstructions were obt ained. Findings: Evaluation is limited due to lack of intravenous and oral contrast. CHEST: LUNGS/ PLEURA: No pleural effusion or pneumothorax. New 1.7 cm right upper lobe medial nodular conso lidation (series 4, image 30). There is some adjacent reticular opacities. Previously seen 8 mm addit ionally previously seen right lower lobe 5 mm groundglass nodule is not visualized on today's exam. T here is a new right lower lobe superior segment 6 mm nodule with adjacent smaller satellite nodule (s eries 4, image 38). Few reticular opacities within the right upper lobe and lingula. Scarring and/or atelectasis demonstrated within the dependent right lower lobe. AIRWAY: Patent and unremarkable.. HEART: Size within normal limits. No pericardial effusion. Aortic valvular calcifications. MEDIASTINUM: No evidence of adenopathy. VASCULATURE: No aortic aneurysm. MUSCULOSKELETAL: No acute osseous abnormalities. No aggressive osseous lesion. SOFT TISSUES/LYMPH NODES: Unremarkable. LOWER NECK: No significant findings. ABDOMEN: ABDOMEN LIVER: Unremarkable noncontrast appearance GALLBLADDER AND BILE DUCTS: Cholelithiasis. No biliary ductal dilatation. PANCREAS: Unremarkable noncontrast appearance SPLEEN: Unremarkable noncontrast appearance ADRENAL GLANDS: Right adrenal gland is poorly visualized. Stable 2 left renal lesions measuring 1.7 a nd 1.7 cm medial laterally. Demonstrate attenuation consistent with benign lipid rich adenomas. KIDNEYS AND URETERS: Postsurgical changes from right nephrectomy. No suspicious soft tissue within th e nephrectomy bed to suggest local recurrence. No hydronephrosis or renal calculi involving the left kidney. Stable left renal cysts with largest in the midpole measuring up to 4.1 cm . Nonspecific lef t perinephric fat stranding redemonstrated. PELVIS BLADDER: Under distended, limiting evaluation. REPRODUCTIVE: The uterus is surgically absent. Both ovaries are visualized with left greater than rig ht. ABDOMEN & PELVIS STOMACH AND BOWEL: Stomach and duodenum are unremarkable. The cecum appears to be in the right upper quadrant medial to the liver. The appendix is not definitively visualized. No evidence of bowel obstr uction. PERITONEUM: No evidence of pneumoperitoneum or free fluid. No definitive peritoneal nodularity. VASCULATURE: Moderate atherosclerotic calcifications are present throughout the abdominal aorta and i ts branches. Few pelvic phleboliths. MUSCULOSKELETAL: No acute osseous abnormalities. No aggressive osseous lesion. LYMPH NODES: No gross evidence for lymphadenopathy. SOFT TISSUE/ABDOMINAL WALL: Tiny fat filled umbilical hernia. IMPRESSION: 1. Postsurgical changes from right nephrectomy. No abnormal soft tissue within the nephrectomy bed to suggest local recurrence. No new pathologic adenopathy within the chest, abdomen or pelvis 2. New nodular consolidation within the medial aspect of the left upper lobe with new nodule within t he superior segment of the right lower lobe however there has been resolution of previously seen nodu les within the left upper lobe and right lower lobe. Findings suggest possible inflammatory/infectiou s process. Metastasis is not excluded. Consider follow-up CT chest in 6 months. 3. Stable 2 left adrenal gland nodules suggestive of benign lipid rich adenomas.
== END | disposition home or self-care (01) ==
LOC: RADCTMAIN 14:51
PROVIDERS: ATTEND Internal Medicine Hematology & Oncology
DX: C64.1 Malignant neoplasm of right kidney, except renal pelvis (principal); E27.8 Other specified disorders of adrenal gland; R91.1 Solitary pulmonary nodule; J44.9 Chronic obstructive pulmonary disease, unspecified; N18.9 Chronic kidney disease, unspecified; M19.90 Unspecified osteoarthritis, unspecified site; Z90.5 Acquired absence of kidney
CPT/HCPCS: 71250; 74176

== ENCOUNTER 2023-01-15 06:33 | Emergency (ER) | payer MEDICARE, OTHER ==
[2023-01-15] MEDS ORDERED: SODIUM CHLORIDE 0.9% 500 ML 500 ML IV STA (06:49)
--- NOTE | 2023-01-15 07:14 | ED ---
Weakness HPI - General Chief complaint: Weakness Stated complaint: Weakness Time Seen by Provider: 01/15/23 06:36 Source: patient, EMS, RN notes reviewed Mode of arrival: EMS Limitations: no limitations - History of Present Illness Initial comments: 62-year-old female presents emergency Department chief complaint of weakness. Patient states that she has been weak for several months but states that this acutely changed overnight. Patient states that she was profoundly weak and couldn't get up bed. Patient states she did not want to, but she is unable to care for herself which EMS brought her in. She does have a history of renal cell carcinoma which she had right nephrectomy. Patient states that she had problems with UTIs denies any reported fever no chest pain she does have a cough which is chronic from being a smoker. Patient denies focal weakness, headache, dizziness. - Related Data Home Medications Medication Instructions Recorded Confirmed Ziprasidone [Geodon] 40 mg PO DAILY 02/07/14 07/03/22 Cyanocobalamin [Vitamin B-12 1,000 mcg SQ Q30D 02/01/15 07/03/22 Injection] ALPRAZolam [Xanax] 0.5 mg PO DAILY PRN 11/07/17 07/03/22 Albuterol Inhaler [Ventolin Hfa 2 puff INHALATION RT-Q6H PRN 11/07/17 07/03/22 Inhaler] Mesalamine [Delzicol] 800 mg PO TID 11/07/17 07/03/22 Omeprazole 40 mg PO DAILY 11/07/17 07/03/22 Propranolol HCl 20 mg PO BID 11/07/17 07/03/22 Albuterol Nebulized [Ventolin 2.5 mg INHALATION RT-QID PRN 07/03/22 07/03/22 Nebulized] Atorvastatin Calcium [Lipitor] 40 mg PO HS 07/03/22 07/03/22 Cabozantinib S-Malate [Cabometyx] 40 mg PO DAILY@1500 07/03/22 07/03/22 Fluticasone Propion/Salmeterol 1 puff INHALATION RT-BID 07/03/22 07/03/22 [Advair 500-50 Diskus] Levothyroxine Sodium [Synthroid] 112 mcg PO DAILY@1500 07/03/22 07/03/22 Multivitamins, Thera [Multivitamin 1 tab PO DAILY 07/03/22 07/03/22 (formulary)] Nivolumab(Unknown Dose) 1 dose IV Q30D 07/03/22 07/03/22 Ziprasidone [Geodon] 60 mg PO HS 07/03/22 07/03/22 buPROPion HCL [Wellbutrin SR] 200 mg PO BID 07/03/22 07/03/22 Previous Rx's Medication Instructions Recorded Benzonatate [Tessalon Perles] 200 mg PO TID PRN #30 cap 07/07/22 Doxycycline [Vibramycin] 100 mg PO BID #120 cap 07/07/22 Magnesium Oxide [Mag-Ox] 400 mg PO DAILY #90 tab 07/07/22 Midodrine [ProAmatine] 10 mg PO AC-TID #120 tab 07/07/22 Sodium Bicarbonate Tab 650 mg PO BID #90 tab 07/07/22 methylPREDNISolone Dose Pack 4 mg PO DIRECTED #1 packet 07/07/22 [Medrol Dose Pack] Allergies Allergy/AdvReac Type Severity Reaction Status Date / Time codeine Allergy Rash/Hives Verified 07/03/22 11:01 Penicillins Allergy Rash/Hives Verified 07/03/22 11:01 on feet Sulfa (Sulfonamide Allergy Rash/Hives Verified 07/03/22 11:01 Antibiotics) on feet ibuprofen [From Motrin] AdvReac Nausea & Verified 07/03/22 11:01 Vomiting Review of Systems ROS Statement: Those systems with pertinent positive or pertinent negative responses have been documented in the HPI. ROS Other: All systems not noted in ROS Statement are negative. Past Medical History Past Medical History: Asthma, GERD/Reflux, Hyperlipidemia, Sleep Apnea/CPAP/BIPAP Additional Past Medical History / Comment(s): hx internal hemorrhoid, kidney CA with right nephrectomy, CPAP use, colitis, IBS History of Any Multi-Drug Resistant Organisms: None Reported Past Surgical History: Hysterectomy Additional Past Surgical History / Comment(s): right nephrectomy 04/11/22 Past Anesthesia/Blood Transfusion Reactions: No Reported Reaction Past Psychological History: Anxiety, Bipolar, Depression Smoking Status: Former smoker Past Alcohol Use History: None Reported Past Drug Use History: None Reported General Exam Limitations: no limitations General appearance: alert, in no apparent distress Head exam: Present: atraumatic, normocephalic, normal inspection Eye exam: Present: PERRL, EOMI, scleral icterus. Absent: normal appearance, conjunctival injection, periorbital swelling ENT exam: Present: normal exam, normal oropharynx, mucous membranes moist Neck exam: Present: normal inspection, full ROM. Absent: tenderness, meningismus, lymphadenopathy Respiratory exam: Present: normal lung sounds bilaterally. Absent: respiratory distress, wheezes, rales, rhonchi, stridor Cardiovascular Exam: Present: regular rate, normal rhythm, normal heart sounds. Absent: systolic murmur, diastolic murmur, rubs, gallop, clicks GI/Abdominal exam: Present: soft, normal bowel sounds. Absent: distended, tenderness, guarding, rebound, rigid Neurological exam: Present: alert, oriented X3, CN II-XII intact, reflexes normal. Absent: motor sensory deficit Skin exam: Present: warm, dry, intact. Absent: normal color (Icterus), rash Course Vital Signs 01/15/23 01/15/23 01/15/23 06:35 07:28 08:00 Temperature 97.5 F L 98.5 F Pulse Rate 105 H 88 85 Respiratory 18 20 16 Rate Blood Pressure 88/52 140/68 107/58 O2 Sat by Pulse 97 98 98 Oximetry 01/15/23 11:00 Temperature 98 F Pulse Rate 95 Respiratory 18 Rate Blood Pressure 97/53 O2 Sat by Pulse 98 Oximetry EKG Findings - EKG Comments: EKG Findings:: EKG performed at 17:01 sinus rhythm with a rate of 99 NH 167/82 QT/QTc 278/ 334 - EKG Results: EKG: interpreted by HARSHIL Medical Decision Making - Medical Decision Making Was pt. sent in by a medical professional or institution (, PA, SALES INCENTIVE ANALYST, urgent care, hospital, or custodial...) When possible be specific @ -No Did you speak to anyone other than the patient for history (EMS, parent, family, police, friend...)? What history was obtained from this source @ -No Did you review nursing and triage notes (agree or disagree)? Why? @ -I reviewed and agree with nursing and triage notes Were old charts reviewed (outside hosp., previous admission, EMS record, old EKG, old radiological studies, urgent care reports/EKG's, custodial records)? Report findings @ -Reviewed prior laboratory studies Differential Diagnosis (chest pain, altered mental status, abdominal pain women, abdominal pain men, vaginal bleeding, weakness, fever, dyspnea, syncope, headache, dizziness, GI bleed, back pain, seizure, CVA, palpatations, mental health, musculoskeletal)? @ -nDifferential Weakness: Hypoglycemia, shock, sepsis, hyponatremia, anemia, infection, [place], ETOH, adverse medicine reaction, overdose, stroke, this is not meant to be an all-inclusive list.able EKG interpreted by me (3pts min.). @ -As above X-rays interpreted by me (1pt min.). @ -None done CT interpreted by me (1pt min.). @ -CT abdomen shows evidence of cholelithiasis no other acute process U/S interpreted by me (1pt. min.). @ -All shown showing no evidence of cholelithiasis 1.16 cm gallbladder neck stone, common bile duct 3.7 mm What testing was considered but not performed or refused? (CT, X-rays, U/S, labs)? Why? @ -None What meds were considered but not given or refused? Why? @ -None Did you discuss the management of the patient with other professionals (professionals i.e. , PA, SALES INCENTIVE ANALYST, lab, RT, psych nurse, social welfare clerk, machine precision engraver, teacher, inshore undersea warfare officer, geriatric case manager)? Give summary @ -I did discuss case with [facility] along with Dr. Aden emergency department for transfer Was smoking cessation discussed for >3mins.? @ -No Was critical care preformed (if so, how long)? @ -No Were there social determinants of health that impacted care today? How? (Home lessness, low income, unemployed, alcoholism, drug addiction, transportation, low edu. Level, literacy, decrease access to med. care, usp, rehab)? @ -No Was there de-escalation of care discussed even if they declined (Discuss DNR or withdrawal of care, Hospice)? DNR status @ -No What co-morbidities impacted this encounter? (DM, HTN, Smoking, COPD, CAD, Cancer, CVA, ARF, Chemo, Hep., AIDS, mental health diagnosis, sleep apnea, morbid obesity)? @ -None Was patient admitted / discharged? Hospital course, mention meds given and route, prescriptions, significant lab abnormalities, going to OR and other pertinent info. @ -Transferred to [facility] for further evaluation by GI and internal medicine secondary to acute hepatitis, hyperbilirubinemia without exact cause at this time. Patient does have noted cholelithiasis without enlarging, mild duct Undiagnosed new problem with uncertain prognosis? @ -No Drug Therapy requiring intensive monitoring for toxicity (Heparin, Nitro, Insulin, Cardizem)? @ -No Were any procedures done? @ -No Diagnosis/symptom? @ -Acute hepatitis, hyperbilirubinemia, weakness, acute kidney injury Acute, or Chronic, or Acute on Chronic? @ -Acute Uncomplicated (without systemic symptoms) or Complicated (systemic symptoms)? @ -Complicated Side effects of treatment? @ -No Exacerbation, Progression, or Severe Exacerbation? @ -No Poses a threat to life or bodily function? How? (Chest pain, [place], [place], pneumonia, PE, COPD, DKA, ARF, appy, cholecystitis, CVA, Diverticulitis, Homicidal, Suicidal, threat to staff... and all critical care pts) @ -No - Lab Data Result diagrams: 01/15/23 06:56 01/15/23 06:56 Lab Results 01/15/23 01/15/23 01/15/23 Range/Units 06:49 06:56 06:56 WBC 17.1 H (3.8-10.6) k/uL RBC 4.09 (3.80-5.40) m/uL Hgb 12.1 (11.4-16.0) gm/dL Hct 38.0 (34.0-46.0) % MCV 92.9 (80.0-100.0) fL MCH 29.7 (25.0-35.0) pg MCHC 32.0 (31.0-37.0) g/dL RDW 19.6 H (11.5-15.5) % Plt Count 284 (150-450) k/uL MPV 9.4 Neutrophils % (Manual) 86 % Band Neuts % (Manual) 1 % Lymphocytes % (Manual) 5 % Monocytes % (Manual) 8 % Neutrophils # (Manual) 14.80 H (1.3-7.7) k/uL Lymphocytes # (Manual) 0.86 L (1.0-4.8) k/uL Monocytes # (Manual) 1.37 H (0-1.0) k/uL Nucleated RBCs 0 (0-0) /100 WBC Manual Slide Review Performed Toxic Granulation Present Hypochromasia Marked Poikilocytosis Slight Anisocytosis Slight Macrocytosis Slight PT 12.4 (10.0-12.5) sec INR 1.2 H (<1.2) APTT 31.9 H (22.0-30.0) sec Sodium (137-145) mmol/L Potassium (3.5-5.1) mmol/L Chloride (98-107) mmol/L Carbon Dioxide (22-30) mmol/L Anion Gap mmol/L BUN (7-17) mg/dL Creatinine (0.52-1.04) mg/dL Est GFR (CKD-EPI)AfAm (>60 ml/min/1.73 sqM) Est GFR (CKD-EPI)NonAf (>60 ml/min/1.73 sqM) Glucose (74-99) mg/dL Plasma Lactic Acid Jimmy 1.9 (0.7-2.0) mmol/L Calcium (8.4-10.2) mg/dL Magnesium (1.6-2.3) mg/dL Total Bilirubin (0.2-1.3) mg/dL AST (14-36) U/L ALT (4-34) U/L Alkaline Phosphatase (38-126) U/L Troponin I (0.000-0.034) ng/mL Total Protein (6.3-8.2) g/dL Albumin (3.5-5.0) g/dL Lipase (23-300) U/L Urine Color Urine Appearance (Clear) Urine pH (5.0-8.0) Ur Specific [place] (1.001-1.035) Urine Protein (Negative) Urine Glucose (UA) (Negative) Urine Ketones (Negative) Urine Blood (Negative) Urine Nitrite (Negative) Urine Bilirubin (Negative) Urine Urobilinogen (<2.0) mg/dL Ur Leukocyte Esterase (Negative) Urine RBC (0-5) /hpf Urine WBC (0-5) /hpf Ur Squamous Epith Cells (0-4) /hpf Urine Bacteria (None) /hpf Hyaline Casts (0-2) /lpf Urine Mucus (None) /hpf Influenza Type A (PCR) (Not Detectd) Influenza Type B (PCR) (Not Detectd) RSV (PCR) (Not Detectd) SARS-CoV-2 (PCR) (Not Detectd) 01/15/23 01/15/23 01/15/23 Range/Units 06:56 06:56 06:56 WBC (3.8-10.6) k/uL RBC (3.80-5.40) m/uL Hgb (11.4-16.0) gm/dL Hct (34.0-46.0) % MCV (80.0-100.0) fL MCH (25.0-35.0) pg MCHC (31.0-37.0) g/dL RDW (11.5-15.5) % Plt Count (150-450) k/uL MPV Neutrophils % (Manual) % Band Neuts % (Manual) % Lymphocytes % (Manual) % Monocytes % (Manual) % Neutrophils # (Manual) (1.3-7.7) k/uL Lymphocytes # (Manual) (1.0-4.8) k/uL Monocytes # (Manual) (0-1.0) k/uL Nucleated RBCs (0-0) /100 WBC Manual Slide Review Toxic Granulation Hypochromasia Poikilocytosis Anisocytosis Macrocytosis PT (10.0-12.5) sec INR (<1.2) APTT (22.0-30.0) sec Sodium 139 (137-145) mmol/L Potassium 4.5 (3.5-5.1) mmol/L Chloride 110 H (98-107) mmol/L Carbon Dioxide 13 L (22-30) mmol/L Anion Gap 16 mmol/L BUN 39 H (7-17) mg/dL Creatinine 3.11 H (0.52-1.04) mg/dL Est GFR (CKD-EPI)AfAm 18 (>60 ml/min/1.73 sqM) Est GFR (CKD-EPI)NonAf 15 (>60 ml/min/1.73 sqM) Glucose 88 (74-99) mg/dL Plasma Lactic Acid Jimmy (0.7-2.0) mmol/L Calcium 8.7 (8.4-10.2) mg/dL Magnesium 1.0 L (1.6-2.3) mg/dL Total Bilirubin 17.0 H* (0.2-1.3) mg/dL AST 521 H (14-36) U/L ALT 326 H (4-34) U/L Alkaline Phosphatase 2390 H (38-126) U/L Troponin I <0.012 (0.000-0.034) ng/mL Total Protein 6.8 (6.3-8.2) g/dL Albumin 2.8 L (3.5-5.0) g/dL Lipase (23-300) U/L Urine Color Dark Yellow Urine Appearance Cloudy H (Clear) Urine pH 5.5 (5.0-8.0) Ur Specific [place] 1.011 (1.001-1.035) Urine Protein 1+ H (Negative) Urine Glucose (UA) Negative (Negative) Urine Ketones Negative (Negative) Urine Blood Small H (Negative) Urine Nitrite Negative (Negative) Urine Bilirubin 2+ H (Negative) Urine Urobilinogen <2.0 (<2.0) mg/dL Ur Leukocyte Esterase Moderate H (Negative) Urine RBC 3 (0-5) /hpf Urine WBC 10 H (0-5) /hpf Ur Squamous Epith Cells 9 H (0-4) /hpf Urine Bacteria Moderate H (None) /hpf Hyaline Casts 1 (0-2) /lpf Urine Mucus Rare H (None) /hpf Influenza Type A (PCR) (Not Detectd) Influenza Type B (PCR) (Not Detectd) RSV (PCR) (Not Detectd) SARS-CoV-2 (PCR) (Not Detectd) 01/15/23 01/15/23 Range/Units 06:56 06:56 WBC (3.8-10.6) k/uL RBC (3.80-5.40) m/uL Hgb (11.4-16.0) gm/dL Hct (34.0-46.0) % MCV (80.0-100.0) fL MCH (25.0-35.0) pg MCHC (31.0-37.0) g/dL RDW (11.5-15.5) % Plt Count (150-450) k/uL MPV Neutrophils % (Manual) % Band Neuts % (Manual) % Lymphocytes % (Manual) % Monocytes % (Manual) % Neutrophils # (Manual) (1.3-7.7) k/uL Lymphocytes # (Manual) (1.0-4.8) k/uL Monocytes # (Manual) (0-1.0) k/uL Nucleated RBCs (0-0) /100 WBC Manual Slide Review Toxic Granulation Hypochromasia Poikilocytosis Anisocytosis Macrocytosis PT (10.0-12.5) sec INR (<1.2) APTT (22.0-30.0) sec Sodium (137-145) mmol/L Potassium (3.5-5.1) mmol/L Chloride (98-107) mmol/L Carbon Dioxide (22-30) mmol/L Anion Gap mmol/L BUN (7-17) mg/dL Creatinine (0.52-1.04) mg/dL Est GFR (CKD-EPI)AfAm (>60 ml/min/1.73 sqM) Est GFR (CKD-EPI)NonAf (>60 ml/min/1.73 sqM) Glucose (74-99) mg/dL Plasma Lactic Acid Jimmy (0.7-2.0) mmol/L Calcium (8.4-10.2) mg/dL Magnesium (1.6-2.3) mg/dL Total Bilirubin (0.2-1.3) mg/dL AST (14-36) U/L ALT (4-34) U/L Alkaline Phosphatase (38-126) U/L Troponin I (0.000-0.034) ng/mL Total Protein (6.3-8.2) g/dL Albumin (3.5-5.0) g/dL Lipase 149 (23-300) U/L Urine Color Urine Appearance (Clear) Urine pH (5.0-8.0) Ur Specific [place] (1.001-1.035) Urine Protein (Negative) Urine Glucose (UA) (Negative) Urine Ketones (Negative) Urine Blood (Negative) Urine Nitrite (Negative) Urine Bilirubin (Negative) Urine Urobilinogen (<2.0) mg/dL Ur Leukocyte Esterase (Negative) Urine RBC (0-5) /hpf Urine WBC (0-5) /hpf Ur Squamous Epith Cells (0-4) /hpf Urine Bacteria (None) /hpf Hyaline Casts (0-2) /lpf Urine Mucus (None) /hpf Influenza Type A (PCR) Not Detected (Not Detectd) Influenza Type B (PCR) Not Detected (Not Detectd) RSV (PCR) Not Detected (Not Detectd) SARS-CoV-2 (PCR) Not Detected (Not Detectd) Disposition Clinical Impression: [facility] (acute kidney injury), Acute hepatitis, Hyperbilirubinemia, Cholelithiasis Disposition: OTHER INSTITUTION NOT DEFINED Referrals: Sylvester Saenz MD [Primary Care Provider] - 1-2 days Time of Disposition: 13:17 - Out of Hospital Transfer - Req. Specs Out of Hospital Transfer - [facility]
[2023-01-15 07:47] LABS: ALT 326 U/L (4-34); AST 521 U/L (14-36); African American GFR (CKD) 18 (>60 ml/min/1.73 sqM); Albumin 2.8 g/dL (3.5-5.0); Anion Gap 16 mmol/L; Blood Urea Nitrogen 39 mg/dL (7-17); Calcium 8.7 mg/dL (8.4-10.2); Carbon Dioxide 13 mmol/L (22-30); Chloride 110 mmol/L (98-107); Glucose 88 mg/dL (74-99); Non-African American GFR(CKD) 15 (>60 ml/min/1.73 sqM); Potassium 4.5 mmol/L (3.5-5.1); Sodium 139 mmol/L (137-145); Total Protein 6.8 g/dL (6.3-8.2)
[2023-01-15 08:01] LABS: Anisocytosis Slight; HGB 12.1 gm/dL (11.4-16.0); Hypochromasia Marked; MCH 29.7 pg (25.0-35.0); MCV 92.9 fL (80.0-100.0); Macrocytosis Slight; Mean Platelet Volume 9.4; Platelet Count 284 k/uL (150-450); Poikilocytosis Slight; RBC 4.09 m/uL (3.80-5.40); RDW 19.6 % (11.5-15.5); WBC 17.1 k/uL (3.8-10.6)
[2023-01-15 08:02] LABS: Alkaline Phosphatase 2390 U/L (38-126)
[2023-01-15 08:08] LABS: Appearance,Urine Cloudy (Clear); Bacteria,Urine Moderate /hpf; Bilirubin,Urine 2+ (Negative); Blood,Urine Small (Negative); Color,Urine Dark Yellow; Glucose,Urine (UA) Negative (Negative); Hyaline Casts,Urine 1 /lpf (0-2); Ketones,Urine Negative (Negative); Leukocyte Esterase,Urine Moderate (Negative); Mucus,Urine Rare /hpf; Nitrite,Urine Negative (Negative); PH, Urine 5.5 (5.0-8.0); Protein,Urine 1+ (Negative); RBC,Urine 3 /hpf (0-5); Specific Gravity,Urine 1.011 (1.001-1.035); Squamous Epithelial Cell,Urine 9 /hpf (0-4); Urobilinogen,Urine <2.0 mg/dL (<2.0); WBC,Urine 10 /hpf (0-5)
[2023-01-15 08:33] LABS: INR 1.2 (<1.2); Prothrombin Time 12.4 sec (10.0-12.5)
[2023-01-15 08:34] LABS: Partial Thromboplastin Time 31.9 sec (22.0-30.0)
--- NOTE | 2023-01-15 08:36 | XR ---
EXAMINATION TYPE: XR chest 2V DATE OF EXAM: 01/15/2023 7:45 AM CLINICAL INDICATION:Female, 62 years old with history of Weakness; PHH COMPARISON: Chest x-ray 07/21/2022, CT 09/15/2022 TECHNIQUE: XR chest 2V Frontal and lateral views of the chest. FINDINGS: Lines/Tubes: EKG leads overlie the chest. No indwelling lines are seen. Lungs/Pleura: There is no evidence of pleural effusion, focal consolidation, or pneumothorax. Mild s carring/senescent changes. Pulmonary vascularity: Unremarkable. Heart/mediastinum: Cardiomediastinal silhouette is unremarkable. Heart is normal in size. Atheroscle rotic calcifications of the aorta. Musculoskeletal: No acute osseous pathology. Mild degenerative changes. Other findings: None IMPRESSION: No evidence of acute cardiopulmonary disease/process.
[2023-01-15 08:38] LABS: Band Neutrophils % 1 %; Lymphocytes # (M) 0.86 k/uL (1.0-4.8); Monocytes # (M) 1.37 k/uL (0-1.0); Neutrophils % (M) 86 %; Nucleated Red Blood Cells 0 /100 WBC (0-0); Total Cells Counted 100
[2023-01-15 08:39] LABS: Toxic Granulation Present
--- NOTE | 2023-01-15 09:57 | US ---
RIGHT UPPER QUADRANT ULTRASOUND: HISTORY: 62-year-old female with abdominal pain.. COMPARISON: None available. TECHNIQUE: Transabdominal ultrasound of the right upper quadrant was performed. FINDINGS: PANCREAS: Unremarkable as visualized. LIVER: Appears mildly enlarged at 18 cm in length. Homogeneous echotexture with no masses identified. GALLBLADDER: Shadowing calculus towards the gallbladder neck measuring approximately 1.16 cm. Gallbla dder is nondistended, there is no evidence for significant wall thickening or pericholecystic fluid. COMMON BILE DUCT: 3.7 mm in diameter. RIGHT KIDNEY: Not seen, patient has a history of nephrectomy. IMPRESSION: Cholelithiasis, without further evidence to suggest acute cholecystitis. Mild hepatomegaly.
[2023-01-15] MEDS: MAGNESIUM SULFATE-D5W PMX 1 GM in DEXTROSE/WATER 1 100ML.BAG IVPB SCH ×2 (10:29→11:27)
--- NOTE | 2023-01-15 11:17 | CT ---
EXAMINATION TYPE: CT abdomen pelvis wo con CT DLP: 439.9 mGycm, Automated exposure control for dose reduction was used. DATE OF EXAM: 01/15/2023 10:16 AM COMPARISON: Same day ultrasound gallbladder CLINICAL INDICATION:Female, 62 years old with history of pain, hyperbilirubinemia; jaundice, hyperbil irubinemia TECHNIQUE: Axial CT of the abdomen and pelvis. Sagittal and coronal reformats were created on a [email or web address] workstation. Contrast used: mL of , (none if empty) Oral contrast used: without Oral Contrast (none if empty) FINDINGS: Exam is limited by lack of contrast. LOWER CHEST: Bibasilar small patchy groundglass peripheral opacities in both lower lobes posteriorly with some mucus plugging seen on the left. Mild emphysematous changes. ABDOMEN LIVER: Unremarkable unenhanced appearance. Surgical clip noted along its right lobe posterior medial surface may be related to previous nephrectomy. GALLBLADDER AND BILE DUCTS: Cholelithiasis seen, up to 8.7 mm in size. Gallbladder is nondistended. N o biliary ductal dilatation is suggested. PANCREAS: Unremarkable. SPLEEN: Unremarkable. ADRENAL GLANDS: Right adrenal difficult to visualize but likely within normal limits if not removed. Left adrenal thickening and low attenuation nodularity, most likely adenomatoid changes.. KIDNEYS AND URETERS: Right kidney is surgically absent. Left kidney shows multiple low-attenuation no dules up to 4.2 cm in size, not fully characterized but have the appearance of cysts. No renal/ureter al calculi or hydronephrosis evident. There is mild perinephric stranding. PELVIS BLADDER: Unremarkable REPRODUCTIVE: Post hysterectomy. Small bilateral soft tissue densities within the pelvis, likely norm al-sized ovaries. ABDOMEN & PELVIS STOMACH AND BOWEL: Stomach and small bowel are nondistended. There is no evidence of obstruction. Antonio endix is not identified with certainty, however there is no inflammatory process seen in the RLQ. Mil d stool throughout the colon without focal inflammatory process seen. PERITONEUM/RETROPERITONEUM: No evidence of pneumoperitoneum or free fluid. VASCULATURE: Moderate atherosclerotic calcifications are present throughout the abdominal aorta and i ts branches. No evidence of aortic aneurysm. MUSCULOSKELETAL: Mild diffuse degenerative changes. Broad-based Schmorl's node along the inferior end plate of L1 appears sclerotic marginated and likely chronic. LYMPH NODES: No gross evidence for lymphadenopathy. SOFT TISSUE/ABDOMINAL WALL: Unremarkable IMPRESSION: 1. Limited unenhanced study shows no clearly acute abnormality in the abdomen or pelvis. 2. Cholelithiasis without CT evidence of acute cholecystitis. 3. Findings in the lung bases could be due to infectious/inflammatory process and/or aspiration. Cor relate clinically to exclude atypical viral infection. 4. Other chronic and likely incidental findings, as described above.
[2023-01-15 11:26] VITALS: RESP 18
[2023-01-15] MEDS ORDERED: metroNIDAZOLE-NS PMX 500 MG in SALINE 1 100ML.BAG IVPB STA (11:26)
[2023-01-15] MEDS ORDERED: cefTRIAXone IN SWFI 1,000 MG/10 ML SYRINGE IVP STA (11:26)
[2023-01-15] MEDS ORDERED: SODIUM CHLORIDE 0.9% 500 ML 500 ML IV ONE (11:35)
[2023-01-15] MEDS ORDERED: SODIUM CHLORIDE 0.9% 1,000 ML IV SCH (11:45)
[2023-01-15 13:35] LABS: Hepatitis A Antibody IgM Nonreactive; Hepatitis B Core IgM Nonreactive; Hepatitis B Surface Antigen Nonreactive; Hepatitis C IgG Antibody Nonreactive
[2023-01-15 13:54] VITALS: BP 95/57; PULSE 80; TEMP 98.1
== END 2023-01-15 13:49 | disposition other institution (70) ==
LOC: EC 06:33 → SUPCPDRO 06:33 → EC 13:49
DX: K80.20 Calculus of gallbladder without cholecystitis without obstruction (principal); N17.9 Acute kidney failure, unspecified; B17.9 Acute viral hepatitis, unspecified; E80.6 Other disorders of bilirubin metabolism; J45.909 Unspecified asthma, uncomplicated; K21.9 Gastro-esophageal reflux disease without esophagitis; E78.5 Hyperlipidemia, unspecified; G47.30 Sleep apnea, unspecified; F41.9 Anxiety disorder, unspecified; F31.9 Bipolar disorder, unspecified; Z87.891 Personal history of nicotine dependence; Z79.899 Other long term (current) drug therapy; Z20.822 Contact with and (suspected) exposure to COVID-19; Z88.0 Allergy status to penicillin; Z88.2 Allergy status to sulfonamides; Z88.5 Allergy status to narcotic agent; Z88.6 Allergy status to analgesic agent
CPT/HCPCS: 36415; 93005; 80053; 80074; 83605; 83690; 83735; 84484; 85025; 85610; 85730; 81001; 87040; 80143; 87636; 71046; 76705; 74176; 99285; 96365; 96367; 96375; 96361 ×3; J0696; J3475; J1836

== ENCOUNTER 2023-02-18 20:53 | Emergency (ER) | payer MEDICARE, OTHER ==
--- NOTE | 2023-02-18 21:20 | ED ---
Chest Pain HPI - General Chief Complaint: Chest Pain Stated Complaint: Chest Pain back pain Time Seen by Provider: 02/18/23 20:55 Source: patient, EMS, RN notes reviewed, old records reviewed Mode of arrival: EMS Limitations: no limitations - History of Present Illness Initial Comments: 62-year-old female history of renal cell carcinoma with right nephrectomy history of hepatitis and hyperbilirubinemia apparently spent about 3 weeks at [facility] was brought in by EMS today with sudden onset of anterior left-sided chest pain 4/10 severity intermittent achy in nature. She also complains of chronic low back pain when she feels may be the cause of the chest pain. He denies any palpitations fevers chills nausea vomiting sweats or other symptoms at this time. She has no prior history of heart disease. The family history however. MD Complaint: chest pain - Related Data Home Medications Medication Instructions Recorded Confirmed Ziprasidone [Geodon] 40 mg PO DAILY 02/07/14 01/15/23 ALPRAZolam [Xanax] 0.5 mg PO DAILY 11/07/17 01/15/23 Albuterol Inhaler [Ventolin Hfa 2 puff INHALATION RT-Q6H PRN 11/07/17 01/15/23 Inhaler] Mesalamine [Delzicol] 800 mg PO TID 11/07/17 01/15/23 Propranolol HCl 20 mg PO BID 11/07/17 01/15/23 Albuterol Nebulized [Ventolin 2.5 mg INHALATION RT-QID PRN 07/03/22 01/15/23 Nebulized] Atorvastatin Calcium [Lipitor] 40 mg PO HS 07/03/22 01/15/23 Levothyroxine Sodium [Synthroid] 112 mcg PO DAILY 07/03/22 01/15/23 Multivitamins, Thera [Multivitamin 1 tab PO DAILY 07/03/22 01/15/23 (formulary)] Ziprasidone [Geodon] 60 mg PO HS 07/03/22 01/15/23 buPROPion HCL [Wellbutrin SR] 200 mg PO BID 07/03/22 01/15/23 Cyanocobalamin (Vitamin B-12) 1,000 mcg PO BID 01/15/23 01/15/23 [Vitamin B-12] Dicyclomine [Bentyl] 20 mg PO TID PRN 01/15/23 01/15/23 Fluticasone/Umeclidin/Vilanter 1 puff INHALATION RT-DAILY 01/15/23 01/15/23 [Ellie Crabtreeta 100-62.5-25] Previous Rx's Medication Instructions Recorded Magnesium Oxide [Mag-Ox] 400 mg PO DAILY #90 tab 07/07/22 Midodrine [ProAmatine] 10 mg PO AC-TID #120 tab 07/07/22 Sodium Bicarbonate Tab 650 mg PO BID #90 tab 07/07/22 HYDROcodone/APAP 5-325MG [[place] 1 tab PO Q6HR PRN 3 Days #12 tab 02/18/23 5-325] predniSONE [Deltasone] 20 mg PO BID #10 tab 02/18/23 Allergies Allergy/AdvReac Type Severity Reaction Status Date / Time codeine Allergy Rash/Hives Verified 01/15/23 13:52 Penicillins Allergy Rash/Hives Verified 01/15/23 13:52 on feet Sulfa (Sulfonamide Allergy Rash/Hives Verified 01/15/23 13:52 Antibiotics) ibuprofen [From Motrin] AdvReac Nausea & Verified 01/15/23 13:52 Vomiting Review of Systems ROS Statement: Those systems with pertinent positive or pertinent negative responses have been documented in the HPI. ROS Other: All systems not noted in ROS Statement are negative. Past Medical History Past Medical History: Asthma, COPD, GERD/Reflux, Hyperlipidemia, Liver Disease, Sleep Apnea/CPAP/BIPAP Additional Past Medical History / Comment(s): hx internal hemorrhoid, kidney CA with right nephrectomy, CPAP use, colitis, IBS History of Any Multi-Drug Resistant Organisms: None Reported Past Surgical History: Hysterectomy Additional Past Surgical History / Comment(s): right nephrectomy 04/11/22 Past Anesthesia/Blood Transfusion Reactions: No Reported Reaction Past Psychological History: Anxiety, Bipolar, Depression Smoking Status: Former smoker Past Alcohol Use History: None Reported Past Drug Use History: None Reported General Exam - General Exam Comments Initial Comments: This is a well-developed well-nourished awake alert oriented 4 female Limitations: no limitations General appearance: alert, anxious Head exam: Present: atraumatic, normocephalic, normal inspection Eye exam: Present: normal appearance, PERRL, EOMI. Absent: scleral icterus, conjunctival injection, periorbital swelling ENT exam: Present: normal exam, mucous membranes moist Neck exam: Present: normal inspection, full ROM, other (No stridor JVD or bruits). Absent: tenderness, meningismus, lymphadenopathy Respiratory exam: Present: normal lung sounds bilaterally. Absent: respiratory distress, wheezes, rales, rhonchi, stridor Cardiovascular Exam: Present: regular rate, normal rhythm, normal heart sounds. Absent: systolic murmur, diastolic murmur, rubs, gallop, clicks GI/Abdominal exam: Present: soft, normal bowel sounds. Absent: distended, tenderness, guarding, rebound, rigid Extremities exam: Present: normal inspection, full ROM, normal capillary refill. Absent: tenderness, pedal edema, joint swelling, calf tenderness Back exam: Present: normal inspection Neurological exam: Present: alert, oriented X3, CN II-XII intact Psychiatric exam: Present: normal affect, normal mood Skin exam: Present: warm, dry, intact, normal color. Absent: rash Course Vital Signs 02/18/23 20:54 Temperature 97.4 F L Pulse Rate 87 Respiratory 18 Rate Blood Pressure 109/62 O2 Sat by Pulse 91 L Oximetry Chest Pain MDM - MDM I did discuss the findings with the patient the pain is atypical likely secondary to the back pain that she has chronically. We did discuss this patient does demonstrate hypomagnesemia but aren't he has a prescription for supplementation. She'll be given pain medication emergency department and a trial course of steroids she is in agreement with this the patient will follow- up with her doctor for further evaluation. Return if any issues. Was pt. sent in by a medical professional or institution (, PA, INDUSTRIAL SAFETY AND HEALTH MANAGER, urgent care, hospital, or snf...) When possible be specific @ -No Did you speak to anyone other than the patient for history (EMS, parent, family, police, friend...)? What history was obtained from this source @ -No Did you review nursing and triage notes (agree or disagree)? Why? @ -I reviewed and agree with nursing and triage notes Were old charts reviewed (outside hosp., previous admission, EMS record, old EKG, old radiological studies, urgent care reports/EKG's, snf records)? Report findings @ -Previous encounter old charts were reviewed Differential Diagnosis (chest pain, altered mental status, abdominal pain women, abdominal pain men, vaginal bleeding, weakness, fever, dyspnea, syncope, headache, dizziness, GI bleed, back pain, seizure, CVA, palpatations, mental health, musculoskeletal)? @ -S pain, musculoskeletal etiology EKG interpreted by me (3pts min.). @ -As above EKG interpreted by me sinus rhythm of 86 VT interval 164 QRS duration 81 daily since QTC 374/470 left exodeviation no acute ST-T wave changes X-rays interpreted by me (1pt min.). @ -TURP by me no acute process CT interpreted by me (1pt min.). @ -None done U/S interpreted by me (1pt. min.). @ -None done What testing was considered but not performed or refused? (CT, X-rays, U/S, labs)? Why? @ -None What meds were considered but not given or refused? Why? @ -None Did you discuss the management of the patient with other professionals (professionals i.e. , PA, INDUSTRIAL SAFETY AND HEALTH MANAGER, lab, RT, psych nurse, manager social media, link assembler, teacher, classifications officer cc/cm, manager rn case)? Give summary @ -No Was smoking cessation discussed for >3mins.? @ -No Was critical care preformed (if so, how long)? @ -No Were there social determinants of health that impacted care today? How? (Homelessness, low income, unemployed, alcoholism, drug addiction, transportation, low edu. Level, literacy, decrease access to med. care, retirement, rehab)? @ -No Was there de-escalation of care discussed even if they declined (Discuss DNR or withdrawal of care, Hospice)? DNR status @ -No What co-morbidities impacted this encounter? (DM, HTN, Smoking, COPD, CAD, Cancer, CVA, ARF, Chemo, Hep., AIDS, mental health diagnosis, sleep apnea, morbid obesity)? 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 Hospital course, mention meds given and route, prescriptions, significant lab abnormalities, going to OR and other pertinent info. @ -hospital course patient was discharged with prescriptions and follow-up with her own doctor. Undiagnosed new problem with uncertain prognosis? @ -No Drug Therapy requiring intensive monitoring for toxicity (Heparin, Nitro, Insulin, Cardizem)? @ -No Were any procedures done? @ -No Diagnosis/symptom? @ -default acute chest wall pain, chronic back pain, hypomagnesemia, resolving liver injury Acute, or Chronic, or Acute on Chronic? @ -Acute on chronic Uncomplicated (without systemic symptoms) or Complicated (systemic symptoms)? @ -Complicated Side effects of treatment? @ -No Exacerbation, Progression, or Severe Exacerbation? @ -Exacerbation Poses a threat to life or bodily function? How? (Chest pain, [place], [place], pneumonia, PE, COPD, DKA, ARF, appy, cholecystitis, CVA, Diverticulitis, Homicidal, Suicidal, threat to staff... and all critical care pts) @ -No Disposition Clinical Impression: Chest wall syndrome, Chronic back pain, Hypomagnesemia Disposition: HOME SELF-CARE Condition: Good Instructions (If sedation given, give patient instructions): Chest Pain (ED), Chest Wall Pain (ED) Prescriptions: predniSONE [Deltasone] 20 mg PO BID #10 tab HYDROcodone/APAP 5-325MG [[place] 5-325] 1 tab PO Q6HR PRN 3 Days #12 tab PRN Reason: Pain Is patient prescribed a controlled substance at d/c from ED?: Yes When asked, does pt state using other controlled substances?: No If prescribed controlled substance>3 days was MAPS reviewed?: Prescribed <3 Days If opioid is for acute pain is fill amount 7 days or less?: Yes If Rx opioid, was Start Talking consent form obtained?: Yes Referrals: Sylvester Saenz MD [Primary Care Provider] - 1-2 days Decision Date: 02/18/23 Decision Time: 23:11
[2023-02-18 21:48] LABS: Anisocytosis Slight; Basophils # (A) 0.1 k/uL (0-0.2); Basophils % (A) 1 %; Eosinophils # (A) 0.1 k/uL (0-0.7); Eosinophils % (A) 1 %; HCT 34.5 % (34.0-46.0); HGB 11.1 gm/dL (11.4-16.0); Hypochromasia Slight; Lymphocytes # (A) 1.9 k/uL (1.0-4.8); Lymphocytes % (A) 13 %; MCH 31.7 pg (25.0-35.0); Macrocytosis Slight; Mean Platelet Volume 8.3; Monocytes # (A) 0.7 k/uL (0-1.0); Monocytes % (A) 5 %; Neutrophils % (A) 80 %; Platelet Count 320 k/uL (150-450); RBC 3.49 m/uL (3.80-5.40); RDW 17.4 % (11.5-15.5)
[2023-02-18 21:58] LABS: ALT 88 U/L (4-34); AST 81 U/L (14-36); African American GFR (CKD) 60 (>60 ml/min/1.73 sqM); Albumin 2.9 g/dL (3.5-5.0); Anion Gap 7 mmol/L; Blood Urea Nitrogen 19 mg/dL (7-17); Calcium 8.7 mg/dL (8.4-10.2); Carbon Dioxide 30 mmol/L (22-30); Chloride 100 mmol/L (98-107); Glucose 90 mg/dL (74-99); Lipase 30 U/L (23-300); Magnesium 1.5 mg/dL (1.6-2.3); Non-African American GFR(CKD) 52 (>60 ml/min/1.73 sqM); Potassium 3.7 mmol/L (3.5-5.1); Sodium 137 mmol/L (137-145); Total Bilirubin 1.6 mg/dL (0.2-1.3)
[2023-02-18 22:07] LABS: NT-Pro-B-Type Natriuretic Pept 932 pg/mL
[2023-02-18 22:23] LABS: Partial Thromboplastin Time 26.6 sec (22.0-30.0); Prothrombin Time 10.9 sec (10.0-12.5)
[2023-02-18 22:24] LABS: Alkaline Phosphatase 1325 U/L (38-126)
[2023-02-18] MEDS ORDERED: methylPREDNISolone SOD SUCCI 125 MG/2 ML VIAL IV STA (22:47)
[2023-02-18] MEDS ORDERED: fentaNYL (PF) 50 MCG/ML 2 ML AMP IV STA (22:48)
[2023-02-18] MEDS ORDERED: HYDROmorphone 0.5 MG/0.5 ML SYRINGE IVP STA (23:05)
[2023-02-18 23:34] LABS: Amorphous Sediment,Urine Occasional /hpf; Bacteria,Urine Occasional /hpf; Hyaline Casts,Urine 8 /lpf (0-2); Mucus,Urine Occasional /hpf; RBC,Urine 2 /hpf (0-5); Squamous Epithelial Cell,Urine 8 /hpf (0-4); WBC,Urine 26 /hpf (0-5)
[2023-02-18 23:49] LABS: Appearance,Urine Clear (Clear); Color,Urine Dark Yellow; Protein,Urine 1+ (Negative)
[2023-02-18 23:50] LABS: Bilirubin,Urine Negative (Negative); Glucose,Urine (UA) Negative (Negative); Leukocyte Esterase,Urine Moderate (Negative); Nitrite,Urine Negative (Negative); Urobilinogen,Urine 0.2 mg/dL (<2.0)
[2023-02-18 23:51] LABS: Blood,Urine Trace (Negative); Ketones,Urine 1+ (Negative)
--- NOTE | 2023-02-19 00:43 | XR ---
EXAMINATION TYPE: XR chest 2V DATE OF EXAM: 02/18/2023 9:14 PM CLINICAL INDICATION:Female, 62 years old with history of Chest Pain; [facility] COMPARISON: 01/15/2023 TECHNIQUE: XR chest 2V. Frontal PA and lateral views of the chest. FINDINGS: Lines/Tubes: EKG leads overlie the chest. No indwelling lines are seen. Heart/mediastinum: Cardiomediastinal silhouette is well defined. Heart size upper normal. Mildly to rtuous partially calcified aorta. Mildly prominent presumed vascular shadows in the hilar regions li tammy relate to the pulmonary arteries, this can be seen with pulmonary arterial hypertension. Pulmonary vascularity: No pulmonary venous congestion. Lungs/Pleura: Mild bibasilar opacities suggesting atelectasis and/or scarring. No focal airspace dise ase, sizable effusion, or pneumothorax. Musculoskeletal: No acute osseous abnormality demonstrated in the limits of the exam. Mild degenerati ve changes of the spine and shoulders. Other findings: None. IMPRESSION: No acute cardiopulmonary abnormality. Overall stable exam.
[2023-02-19 02:41] VITALS: BP 105/55; PULSE 90; RESP 16; TEMP 98.4
== END 2023-02-19 00:57 | disposition home or self-care (01) ==
LOC: EC 20:53
DX: G89.29 Other chronic pain (principal); R07.89 Other chest pain; M54.50 Low back pain, unspecified; E83.42 Hypomagnesemia; J44.89 Other specified chronic obstructive pulmonary disease; G47.30 Sleep apnea, unspecified; E78.5 Hyperlipidemia, unspecified; F41.9 Anxiety disorder, unspecified; F31.9 Bipolar disorder, unspecified; Z79.890 Hormone replacement therapy; Z79.899 Other long term (current) drug therapy; Z88.0 Allergy status to penicillin; Z88.2 Allergy status to sulfonamides; Z88.6 Allergy status to analgesic agent; Z87.891 Personal history of nicotine dependence
CPT/HCPCS: 36415; 93005; 85379; 83880; 80053; 83690; 83735; 84484; 85025; 85610; 85730; 81001; 71046; 99285; 96374; 96375; J2930; J1170

== ENCOUNTER 2023-02-27 20:56 | Inpatient (IN) | payer MEDICARE, OTHER ==
[2023-02-27] MEDS ORDERED: MORPHINE SULFATE 4 MG/ML SYRINGE IV STA (22:28)
--- NOTE | 2023-02-27 22:29 | ED ---
Fall HPI - General Chief Complaint: Fall Stated Complaint: Fall-hip pain Time Seen by Provider: 02/27/23 21:52 Source: patient Mode of arrival: EMS - History of Present Illness Initial Comments: Patient has a 62-year-old woman who presents after she had a ground-level fall at home. The patient states that she had been sitting in her chair. She had to go to the bathroom, and then when she did she slipped and fell resulting in left hip pain. And she was not able to get up and walk after that. 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 Fall Witnessed: no Place Fall Occurred: home Loss of Consciousness: none Location - Extremities: Left: Thigh Severity: severe Quality: sharp Context: tripped/slipped Associated Symptoms: denies - Related Data Home Medications Medication Instructions Recorded Confirmed Ziprasidone [Geodon] 40 mg PO DAILY@0530 02/07/14 02/27/23 Albuterol Inhaler [Ventolin Hfa 2 puff INHALATION RT-Q6H PRN 11/07/17 02/27/23 Inhaler] Mesalamine [Delzicol] 800 mg PO TID@0530,1200,1730 11/07/17 02/27/23 Albuterol Nebulized [Ventolin 2.5 mg INHALATION RT-QID PRN 07/03/22 02/27/23 Nebulized] Atorvastatin Calcium [Lipitor] 40 mg PO HS@1730 07/03/22 02/27/23 Levothyroxine Sodium [Synthroid] 112 mcg PO DAILY@0530 07/03/22 02/27/23 Multivitamins, Thera [Multivitamin 1 tab PO DAILY@0530 07/03/22 02/27/23 (formulary)] Ziprasidone [Geodon] 60 mg PO HS@1730 07/03/22 02/27/23 buPROPion HCL [Wellbutrin SR] 200 mg PO BID@0530,1730 07/03/22 02/27/23 Cyanocobalamin (Vitamin B-12) 1,000 mcg PO BID@0530,1730 01/15/23 02/27/23 [Vitamin B-12] Fluticasone/Umeclidin/Vilanter 1 puff INHALATION RT-DAILY 01/15/23 02/27/23 [[place] Ellipta 100-62.5-25] Magnesium Oxide [Mag-Ox] 800 mg PO BID@0530,1730 02/27/23 02/27/23 Pantoprazole [Protonix] 40 mg PO BID@0530,1730 02/27/23 02/27/23 Sodium Bicarbonate Tab 650 mg PO BID@0530,1730 02/27/23 02/27/23 Previous Rx's Medication Instructions Recorded Midodrine [ProAmatine] 10 mg PO AC-TID #120 tab 07/07/22 HYDROcodone/APAP 5-325MG [[place] 1 tab PO Q6HR PRN 3 Days #12 tab 02/18/23 5-325] HYDROcodone/APAP 5-325MG [[place] 1 - 2 tab PO Q6HR PRN #32 tab 03/01/23 5-325] ALPRAZolam [Xanax] 0.5 mg PO DAILY@0530 #6 tab 03/06/23 Propranolol [Inderal] 10 mg PO 0530,1730 tab 03/06/23 Tamsulosin [Flomax] 0.4 mg PO PC-[id number] cap 03/06/23 Vancomycin Oral Solution 125 mg PO Q6HR #100 ml 03/06/23 Allergies Allergy/AdvReac Type Severity Reaction Status Date / Time codeine Allergy Rash/Hives Verified 02/27/23 22:40 Penicillins Allergy Rash/Hives Verified 02/27/23 22:40 on feet Sulfa (Sulfonamide Allergy Rash/Hives Verified 02/27/23 22:40 Antibiotics) ibuprofen [From Motrin] AdvReac Nausea & Verified 02/27/23 22:40 Vomiting Review of Systems ROS Statement: Those systems with pertinent positive or pertinent negative responses have been documented in the HPI. ROS Other: All systems not noted in ROS Statement are negative. Constitutional: Denies: fever, chills Respiratory: Denies: cough, dyspnea Cardiovascular: Denies: chest pain, palpitations, edema Gastrointestinal: Denies: abdominal pain, vomiting Genitourinary: Denies: dysuria, frequency Musculoskeletal: Reports: as per HPI, arthralgia Skin: Denies: rash, lesions Neurological: Denies: headache, weakness, numbness Past Medical History Past Medical History: Asthma, COPD, GERD/Reflux, Hyperlipidemia, Liver Disease, Sleep Apnea/CPAP/BIPAP Additional Past Medical History / Comment(s): hx internal hemorrhoid, kidney CA with right nephrectomy, CPAP use, colitis, IBS History of Any Multi-Drug Resistant Organisms: None Reported Past Surgical History: Hysterectomy Additional Past Surgical History / Comment(s): right nephrectomy 04/11/22 Past Anesthesia/Blood Transfusion Reactions: No Reported Reaction Past Psychological History: Anxiety, Bipolar, Depression Smoking Status: Former smoker Past Alcohol Use History: None Reported Past Drug Use History: None Reported General Exam Limitations: no limitations General appearance: alert, in no apparent distress Head exam: Present: atraumatic, normocephalic Eye exam: Present: normal appearance. Absent: scleral icterus, conjunctival injection Neck exam: Present: normal inspection, full ROM. Absent: tenderness Respiratory exam: Present: normal lung sounds bilaterally. Absent: respiratory distress, wheezes, rales, rhonchi, stridor Cardiovascular Exam: Present: normal rhythm, tachycardia, normal heart sounds. Absent: systolic murmur, diastolic murmur, rubs, gallop GI/Abdominal exam: Present: soft. Absent: distended, tenderness, guarding, rebound, rigid, mass Extremities exam: Present: tenderness, normal capillary refill. Absent: full ROM, pedal edema, calf tenderness Left Hip exam: Present: tenderness. Absent: full ROM, laceration, ecchymosis Knee exam: Present: full ROM. Absent: tenderness, swelling, ecchymosis, deformity Lower Leg exam: Present: full ROM. Absent: tenderness, swelling, abrasion, laceration, ecchymosis Foot/Toe exam: Present: full ROM. Absent: tenderness, swelling, abrasion, laceration Neurovascular tendon exam: Present: no vascular compromise. Absent: pulse deficit, abnormal cap refill Back exam: Present: normal inspection. Absent: CVA tenderness (R), CVA tenderness (L) Neurological exam: Present: alert. Absent: motor sensory deficit Skin exam: Present: warm, dry, intact, normal color. Absent: rash Course Vital Signs 02/27/23 02/28/23 02/28/23 21:12 00:54 03:24 Temperature 97.8 F Pulse Rate 127 H 102 H 104 H Respiratory 16 18 18 Rate Blood Pressure 98/47 107/64 99/62 O2 Sat by Pulse 92 L 95 93 L Oximetry 02/28/23 02/28/23 02/28/23 04:40 08:10 08:29 Temperature Pulse Rate 103 H 114 H 114 H Respiratory 16 Rate Blood Pressure 111/67 O2 Sat by Pulse 95 92 L Oximetry 02/28/23 02/28/23 02/28/23 08:50 08:54 10:05 Temperature 98.5 F Pulse Rate 119 H 88 Respiratory 18 16 Rate Blood Pressure 120/72 107/67 O2 Sat by Pulse 90 L 92 L 92 L Oximetry 02/28/23 02/28/23 02/28/23 10:41 11:07 11:45 Temperature 98.2 F Pulse Rate 87 85 81 Respiratory 17 17 20 Rate Blood Pressure 109/69 110/67 130/74 O2 Sat by Pulse 93 L 92 L 93 L Oximetry Medical Decision Making - Medical Decision Making 's patient is 62-year-old woman here to have evaluation after having ground- level fall. The patient does have pain to the left hip. No range of motion and tenderness present on exam. Patient had x-ray of the hip and pelvis which I interpreted to show left femoral neck fracture. Discussed with Dr. Turner, who will accept admission. Requests [facility] physician group for medical management/surgical clearance. Patient to be kept nothing by mouth in anticipation of possible surgery. Was pt. sent in by a medical professional or institution (SHABANA Mcneil, ADMINISTRATIVE UNDERWRITER, urgent care, hospital, or fpc...) When possible be specific @ -[No] Did you speak to anyone other than the patient for history (EMS, parent, family, police, friend...)? What history was obtained from this source @ -[No] Did you review nursing and triage notes (agree or disagree)? Why? @ -[I reviewed and agree with nursing and triage notes] Were old charts reviewed (outside hosp., previous admission, EMS record, old EKG, old radiological studies, urgent care reports/EKG's, fpc records)? Report findings @ -[No old charts were reviewed] Differential Diagnosis (chest pain, altered mental status, abdominal pain women, abdominal pain men, vaginal bleeding, weakness, fever, dyspnea, syncope, headache, dizziness, GI bleed, back pain, seizure, CVA, palpatations, mental health, musculoskeletal)? @ -[Differential Musculoskeletal Muscular strain, contusion, ligament sprain, fracture, arthritis, septic arthritis, bursitis, cellulitis, muscle spasm, nerve compression, DVT, arterial occlusion, herpes zoster, electrolyte abnormality, tumor.... This is not meant to be in all inclusive list EKG interpreted by me (3pts min.). @ -[As above] X-rays interpreted by me (1pt min.). @ -I interpreted as above CT interpreted by me (1pt min.). @ -[None done] U/S interpreted by me (1pt. min.). @ -[None done] What testing was considered but not performed or refused? (CT, X-rays, U/S, labs)? Why? @ -[None] What meds were considered but not given or refused? Why? @ -[None] Did you discuss the management of the patient with other professionals (professionals i.e. , PA, ADMINISTRATIVE UNDERWRITER, lab, RT, psych nurse, social worker delinquency prevention, air surveillance operator, teacher, chief lifestyle officer, hospice case manager)? Give summary @ -[Is discussed with the admitting physician and also with the medical service to facilitate clearance, treatment recommendations are incorporated Was smoking cessation discussed for >3mins.? @ -[No] Was critical care preformed (if so, how long)? @ -[No] Were there social determinants of health that impacted care today? How? (Homelessness, low income, unemployed, alcoholism, drug addiction, transportation, low edu. Level, literacy, decrease access to med. care, senior living, rehab)? @ -[No] Was there de-escalation of care discussed even if they declined (Discuss DNR or withdrawal of care, Hospice)? DNR status @ -[No] What co-morbidities impacted this encounter? (DM, HTN, Smoking, COPD, CAD, Cancer, CVA, ARF, Chemo, Hep., AIDS, mental health diagnosis, sleep apnea, mo rbid obesity)? @ -[None] Was patient admitted / discharged? Hospital course, mention meds given and route, prescriptions, significant lab abnormalities, going to OR and other pertinent info. @ -[Patient is 62-year-old woman with femur fracture who is admitted to the hospital Undiagnosed new problem with uncertain prognosis? @ -[No] Drug Therapy requiring intensive monitoring for toxicity (Heparin, Nitro, Insulin, Cardizem)? @ -[No] Were any procedures done? @ -[No] Diagnosis/symptom? @ -[Acute femur fracture Fall Acute, or Chronic, or Acute on Chronic? @ -[Acute Uncomplicated (without systemic symptoms) or Complicated (systemic symptoms)? @ -[Uncomplicated Side effects of treatment? @ -[No] Exacerbation, Progression, or Severe Exacerbation? @ -[No] Poses a threat to life or bodily function? How? (Chest pain, USA, [place], pneumonia, PE, COPD, DKA, ARF, appy, cholecystitis, CVA, Diverticulitis, Homicidal, Suicidal, threat to staff... and all critical care pts) @ -[Yes, hip fracture caries significant risk of morbidity and mortality - Lab Data Result diagrams: 03/06/23 04:32 03/06/23 04:32 Lab Results 02/27/23 02/27/23 02/27/23 Range/Units 22:47 22:47 22:47 WBC 21.1 H (3.8-10.6) k/uL RBC 4.00 (3.80-5.40) m/uL Hgb 12.5 (11.4-16.0) gm/dL Hct 39.5 (34.0-46.0) % MCV 98.9 (80.0-100.0) fL MCH 31.2 (25.0-35.0) pg MCHC 31.6 (31.0-37.0) g/dL RDW 16.2 H (11.5-15.5) % Plt Count 431 (150-450) k/uL MPV 8.1 Neutrophils % 88 % Lymphocytes % 7 % Monocytes % 3 % Eosinophils % 1 % Basophils % 0 % Neutrophils # 18.6 H (1.3-7.7) k/uL Lymphocytes # 1.5 (1.0-4.8) k/uL Monocytes # 0.7 (0-1.0) k/uL Eosinophils # 0.1 (0-0.7) k/uL Basophils # 0.1 (0-0.2) k/uL Hypochromasia Moderate Anisocytosis Slight Macrocytosis Slight Sodium 138 (137-145) mmol/L Potassium 4.2 (3.5-5.1) mmol/L Chloride 100 (98-107) mmol/L Carbon Dioxide 30 (22-30) mmol/L Anion Gap 8 mmol/L BUN 21 H (7-17) mg/dL Creatinine 1.00 (0.52-1.04) mg/dL Est GFR (CKD-EPI)AfAm 70 (>60 ml/min/1.73 sqM) Est GFR (CKD-EPI)NonAf 61 (>60 ml/min/1.73 sqM) Glucose 98 (74-99) mg/dL Calcium 8.5 (8.4-10.2) mg/dL Magnesium 1.7 (1.6-2.3) mg/dL Total Bilirubin 1.0 (0.2-1.3) mg/dL AST 41 H (14-36) U/L ALT 39 H (4-34) U/L Alkaline Phosphatase 1000 H (38-126) U/L Troponin I <0.012 (0.000-0.034) ng/mL Total Protein 6.0 L (6.3-8.2) g/dL Albumin 2.9 L (3.5-5.0) g/dL Blood Type Confirm 02/27/23 Range/Units 22:47 WBC (3.8-10.6) k/uL RBC (3.80-5.40) m/uL Hgb (11.4-16.0) gm/dL Hct (34.0-46.0) % MCV (80.0-100.0) fL MCH (25.0-35.0) pg MCHC (31.0-37.0) g/dL RDW (11.5-15.5) % Plt Count (150-450) k/uL MPV Neutrophils % % Lymphocytes % % Monocytes % % Eosinophils % % Basophils % % Neutrophils # (1.3-7.7) k/uL Lymphocytes # (1.0-4.8) k/uL Monocytes # (0-1.0) k/uL Eosinophils # (0-0.7) k/uL Basophils # (0-0.2) k/uL Hypochromasia Anisocytosis Macrocytosis Sodium (137-145) mmol/L Potassium (3.5-5.1) mmol/L Chloride (98-107) mmol/L Carbon Dioxide (22-30) mmol/L Anion Gap mmol/L BUN (7-17) mg/dL Creatinine (0.52-1.04) mg/dL Est GFR (CKD-EPI)AfAm (>60 ml/min/1.73 sqM) Est GFR (CKD-EPI)NonAf (>60 ml/min/1.73 sqM) Glucose (74-99) mg/dL Calcium (8.4-10.2) mg/dL Magnesium (1.6-2.3) mg/dL Total Bilirubin (0.2-1.3) mg/dL AST (14-36) U/L ALT (4-34) U/L Alkaline Phosphatase (38-126) U/L Troponin I (0.000-0.034) ng/mL Total Protein (6.3-8.2) g/dL Albumin (3.5-5.0) g/dL Blood Type Confirm A Positive - EKG Data -: EKG Interpreted by Me EKG shows normal: sinus rhythm, axis (Borderline left axis deviation), intervals (Normal), QRS complexes Rate: tachycardia (Rate 108 bpm) Disposition Clinical Impression: Fall, Left displaced femoral neck fracture Disposition: ADMITTED IP TO THIS HOSP Condition: Fair Is patient prescribed a controlled substance at d/c from ED?: No
[2023-02-27] MEDS ORDERED: SODIUM CHLORIDE 0.9% 1,000 ML IV STA (22:31)
[2023-02-27] MEDS ORDERED: SODIUM CHLORIDE 0.9% 500 ML 500 ML IV STA (22:31)
[2023-02-27] MEDS ORDERED: HYDROcodone/APAP 5-325MG 1 EACH TAB PO STA (22:38)
[2023-02-27 23:11] LABS: Anisocytosis Slight; Basophils # (A) 0.1 k/uL (0-0.2); Basophils % (A) 0 %; Eosinophils # (A) 0.1 k/uL (0-0.7); Eosinophils % (A) 1 %; HCT 39.5 % (34.0-46.0); HGB 12.5 gm/dL (11.4-16.0); Hypochromasia Moderate; Lymphocytes # (A) 1.5 k/uL (1.0-4.8); Lymphocytes % (A) 7 %; MCH 31.2 pg (25.0-35.0); MCHC 31.6 g/dL (31.0-37.0); MCV 98.9 fL (80.0-100.0); Macrocytosis Slight; Mean Platelet Volume 8.1; Monocytes # (A) 0.7 k/uL (0-1.0); Monocytes % (A) 3 %; Neutrophils # (A) 18.6 k/uL (1.3-7.7); Neutrophils % (A) 88 %; Platelet Count 431 k/uL (150-450); RDW 16.2 % (11.5-15.5); WBC 21.1 k/uL (3.8-10.6)
[2023-02-27 23:20] LABS: ALT 39 U/L (4-34); AST 41 U/L (14-36); African American GFR (CKD) 70 (>60 ml/min/1.73 sqM); Albumin 2.9 g/dL (3.5-5.0); Anion Gap 8 mmol/L; Blood Urea Nitrogen 21 mg/dL (7-17); Calcium 8.5 mg/dL (8.4-10.2); Carbon Dioxide 30 mmol/L (22-30); Chloride 100 mmol/L (98-107); Glucose 98 mg/dL (74-99); Magnesium 1.7 mg/dL (1.6-2.3); Non-African American GFR(CKD) 61 (>60 ml/min/1.73 sqM); Potassium 4.2 mmol/L (3.5-5.1); Sodium 138 mmol/L (137-145)
[2023-02-27] MEDS ORDERED: LORazepam 2 MG/ML INJ IV STA (23:41)
--- NOTE | 2023-02-27 23:47 | XR ---
EXAMINATION TYPE: XR Hip LT and AP Pelvis DATE OF EXAM: 02/27/2023 9:45 PM CLINICAL INDICATION:Female, 62 years old with history of fall; [facility] COMPARISON: None. TECHNIQUE: AP pelvis plus frontal and frog leg lateral views of the left hip. FINDINGS: Osseous mineralization appears within normal limits. Mild degenerative changes of the lower lumbar spine and hips. Pelvis appears symmetric and intact. Proximal right femur is grossly unremark able. Acute subcapital fracture of the left proximal femur with some displacement and mild angulation at th e fracture site. Femoral head remains articulating with the acetabulum. Soft tissue swelling suggeste d regional to the fracture. No radiopaque foreign body is seen. IMPRESSION: Acute, mildly displaced and angulated subcapital fracture of the proximal left femur.
[2023-02-27 23:49] LABS: Alkaline Phosphatase 1000 U/L (38-126)
[2023-02-27] MEDS ORDERED: NALOXONE 0.4 MG/ML 1 ML VIAL IV PRN (23:49)
[2023-02-27] MEDS ORDERED: ONDANSETRON 4 MG/2 ML VIAL IVP PRN (23:49)
[2023-02-27] MEDS ORDERED: ACETAMINOPHEN TAB 325 MG TAB PO PRN (23:49)
--- NOTE | 2023-02-27 23:49 | XR ---
EXAMINATION TYPE: XR femur LT DATE OF EXAM: 02/27/2023 9:45 PM CLINICAL INDICATION:Female, 62 years old with history of fall; H COMPARISON: Correlation with same-day pelvis and hip x-ray TECHNIQUE: The left femur was examined in Frontal and lateral projections. 4 images total. FINDINGS: Osseous mineralization appears appropriate. Mild left hip arthropathy. Acute subcapital fra cture of the left proximal femur with some displacement and mild angulation at the fracture site. Fem oral head remains articulating with the acetabulum. Soft tissue swelling suggested regional to the fr acture. No radiopaque foreign body is seen. The more distal portions of the femur appear to be intact and normally aligned. Knee is not completel y assessed but appears grossly unremarkable. IMPRESSION: Acute, mildly displaced and angulated subcapital fracture of the proximal left femur.
--- NOTE | 2023-02-27 23:55 | XR ---
EXAMINATION TYPE: XR chest 1V DATE OF EXAM: 02/27/2023 9:44 PM CLINICAL INDICATION:Female, 62 years old with history of FALL; [facility] COMPARISON: 02/18/2023 TECHNIQUE: XR chest 1V Frontal view of the chest. FINDINGS: Lines/Tubes/Devices: None. Heart/mediastinum: Cardiomediastinal silhouette is well defined and stable. Heart size upper normal. Mildly tortuous partially calcified aorta. Pulmonary vascularity: Not increased, Lungs/Pleura: Lung volumes are slightly improved from previous. No definite infiltrate on the right. There is vague patchy opacity suggesting atelectasis or airspace disease towards the left lung base. No sizable effusion or pneumothorax is seen. Musculoskeletal: No acute osseous abnormality demonstrated in the limits of the exam. Mild degenerat eddi changes. Other findings: None. IMPRESSION: Left basilar opacity may represent atelectasis or emerging infiltrate. Follow-up as clinically luis douglas
--- NOTE | 2023-02-28 00:06 | XR ---
EXAMINATION TYPE: XR lumbar spine 2 or 3V DATE OF EXAM: 02/27/2023 9:52 PM CLINICAL INDICATION:Female, 62 years old with history of FALL; [facility] COMPARISON: CT abdomen pelvis 01/15/2023 TECHNIQUE: XR lumbar spine 2 or 3V - Frontal, lateral and coned in L5-S1 lateral views of the spine. FINDINGS: There appear to be 5 lumbar-type vertebral bodies with rudimentary ribs at the T12 level. Pedicles ap pear intact throughout. Osseous mineralization appears appropriate. No destructive lesion is seen. Ne w since the prior exam there is compression fracture deformity of L1 with some height loss along the superior and inferior endplates, forming anterior wedging with about 40% vertebral body height loss a nteriorly relative to posterior. No large retropulsion seen by plain film examination. There is backg round mild multilevel degenerative disc disease and facet arthrosis throughout the lumbar spine. Moderate calcification of the aorta and iliac arteries. There is a curvilinear density over the right upper quadrant likely representing biliary to bowel stent. Round radiodensity to the right of this i s probably known gallstone. There are a couple surgical clips noted medial and posterior to the proxi mal end of the stent, probably from previous nephrectomy. Visualized bowel segments appear gaseous and mildly distended, nonspecific but may indicate ileus. IMPRESSION: Compression fracture of L1 with anterior wedging and approximately 40% height loss, new compared to t he prior study and presumed acute given the history of recent fall.
[2023-02-28 00:21] LABS: Prothrombin Time 11.3 sec (10.0-12.5)
[2023-02-28] MEDS ORDERED: HYDROmorphone 1 MG/ML 1 ML SYRINGE IVP PRN ×2 (00:42→15:08)
[2023-02-28] MEDS: SODIUM CHLORIDE 0.9% 1,000 ML IV SCH ×3 (01:03→20:26)
--- NOTE | 2023-02-28 04:01 | P.CONS ---
History of Present Illness - Reason for Consult Consult date: 02/28/23 Preop clearance - Chief Complaint Fall - History of Present Illness 62-year-old female with COPD and obstructive sleep apnea on 2 L oxygen Patient lives alone at home she was trying to get up and ambulate with walker when she slipped and fell she denies any head injury denies any loss of conscio usness she denies any symptoms prior or after the fall related to any palpitations chest pain or trouble breathing dizziness or lightheadedness. She denies being on any blood thinners denies any headache denies any new focal neuro deficits She wasn't able to get up she had to crawl to the phone which was mixed over cold or some for help to get access to the EMS due to locked community and was brought to the hospital with inability to weight bear due to left hip pain she was diagnosed with left femoral neck fracture was admitted to surgery for further care Patient was recently hospitalized or facility where she was found to have significantly elevated liver enzymes and was found to have cholelithiasis without acute cholecystitis patient was transferred to [facility] where she was evaluated by GI at stents were placed, her current liver enzymes are trending down Patient denies tobacco smoking illicit drugs or heavy alcohol review of systems Pertinent positives as noted in HPI. All other systems were reviewed and are negative on exam Constitutional: No acute distress, conversant, pleasant Eyes: Anicteric sclerae, moist conjunctiva, Pupils equal round reactive to light ENMT: NC/AT Oropharynx clear, no erythema, or exudates Neck: Supple, no masses, or JVD No carotid bruits No thyromegaly Lungs: Clear to auscultation Clear to percussion Normal respiratory effort, no accessory muscle use Cardiovascular: Heart regular in rate and rhythm, No murmurs, gallops, or rubs No peripheral edema Abdominal: Soft Nontender, no guarding, rebound or rigidity Abdomen moving with respiration Normoactive bowel sounds No hepatomegaly, No splenomegaly No palpable mass No abdominal wall hernia noted Extremities: No digital cyanosis No clubbing Pedal pulses intact and symmetrical Radial pulses intact and symmetrical No calf tenderness Psychiatric: Alert and oriented to person, place and time Appropriate affect fair judgement Neuro Muscles Strength 5/5 in all 4 extremities with limited exam over the left lower extremity secondary to hip fracture Sensation to light touch grossly present throughout Cranial nerves II-XII grossly intact Lymphatics: no palpable cervical or supraclavicular lymph nodes Past Medical History Past Medical History: Asthma, COPD, GERD/Reflux, Hyperlipidemia, Liver Disease, Sleep Apnea/CPAP/BIPAP Additional Past Medical History / Comment(s): hx internal hemorrhoid, kidney CA with right nephrectomy, CPAP use, colitis, IBS History of Any Multi-Drug Resistant Organisms: None Reported Past Surgical History: Hysterectomy Additional Past Surgical History / Comment(s): right nephrectomy 04/11/22 Past Anesthesia/Blood Transfusion Reactions: No Reported Reaction Past Psychological History: Anxiety, Bipolar, Depression Smoking Status: Former smoker Past Alcohol Use History: None Reported Past Drug Use History: None Reported Medications and Allergies Home Medications Medication Instructions Recorded Confirmed Type Ziprasidone [Geodon] 40 mg PO DAILY@0530 02/07/14 02/27/23 History ALPRAZolam [Xanax] 0.5 mg PO DAILY@0530 11/07/17 02/27/23 History Albuterol Inhaler [Ventolin Hfa 2 puff INHALATION RT-Q6H PRN 11/07/17 02/27/23 History Inhaler] Mesalamine [Delzicol] 800 mg PO TID@0530,1200,1730 11/07/17 02/27/23 History Propranolol HCl 20 mg PO BID@0530,1730 11/07/17 02/27/23 History Albuterol Nebulized [Ventolin 2.5 mg INHALATION RT-QID PRN 07/03/22 02/27/23 History Nebulized] Atorvastatin Calcium [Lipitor] 40 mg PO HS@1730 07/03/22 02/27/23 History Levothyroxine Sodium [Synthroid] 112 mcg PO DAILY@0530 07/03/22 02/27/23 History Multivitamins, Thera [Multivitamin 1 tab PO DAILY@0530 07/03/22 02/27/23 History (formulary)] Ziprasidone [Geodon] 60 mg PO HS@0 07/03/22 02/27/23 History buPROPion HCL [Wellbutrin SR] 200 mg PO BID@0530,1730 07/03/22 02/27/23 History Midodrine [ProAmatine] 10 mg PO AC-TID #120 tab 07/07/22 02/27/23 Rx Cyanocobalamin (Vitamin B-12) 1,000 mcg PO BID@0530,1730 01/15/23 02/27/23 History [Vitamin B-12] Dicyclomine [Bentyl] 20 mg PO TID PRN 01/15/23 02/27/23 History Fluticasone/Umeclidin/Vilanter 1 puff INHALATION RT-DAILY 01/15/23 02/27/23 History [Trelegy Ellipta 100-62.5-25] HYDROcodone/APAP 5-325MG [[place] 1 tab PO Q6HR PRN 3 Days #12 tab 02/18/23 02/27/23 Rx 5-325] Magnesium Oxide [Mag-Ox] 800 mg PO BID@0530,1730 02/27/23 02/27/23 History Pantoprazole [Protonix] 40 mg PO BID@0530,1730 02/27/23 02/27/23 History Sodium Bicarbonate Tab 650 mg PO BID@0530,1730 02/27/23 02/27/23 History Allergies Allergy/AdvReac Type Severity Reaction Status Date / Time codeine Allergy Rash/Hives Verified 02/27/23 22:40 Penicillins Allergy Rash/Hives Verified 02/27/23 22:40 on feet Sulfa (Sulfonamide Allergy Rash/Hives Verified 02/27/23 22:40 Antibiotics) ibuprofen [From Motrin] AdvReac Nausea & Verified 02/27/23 22:40 Vomiting Physical Exam Vitals: Vital Signs Temp Pulse Resp BP Pulse Ox 02/27/23 21:12 97.8 F 127 H 16 98/47 92 L Intake and Output 02/27/23 02/27/23 02/28/23 14:59 22:59 06:59 Other: Weight 58.967 kg Results CBC & Chem 7: 02/27/23 22:47 02/27/23 22:47 Labs: Abnormal Lab Results - Last 24 Hours (Table) 02/27/23 02/27/23 Range/Units 22:47 22:47 WBC 21.1 H (3.8-10.6) k/uL RDW 16.2 H (11.5-15.5) % Neutrophils # 18.6 H (1.3-7.7) k/uL BUN 21 H (7-17) mg/dL AST 41 H (14-36) U/L ALT 39 H (4-34) U/L Alkaline Phosphatase 1000 H (38-126) U/L Total Protein 6.0 L (6.3-8.2) g/dL Albumin 2.9 L (3.5-5.0) g/dL Assessment and Plan Assessment: 62-year-old female coming in after a fall was diagnosed with left hip fracture. Patient denies any recent history of coronary artery disease, [place], CHF, arrhythmia, syncope. Patient denies any past medical history of CVA CHF CAD diabetes mellitus or CK-MB. At baseline before these events patient was able to climb 7-8 flight of stairs in her apartment complex with no limitations able to do heavy charts without experiencing any chest pain or shortness of breath. Patient is here for left hip fracture patient has history of COPD and obstructive sleep apnea requiring oxygen at night. Patient is planned for orthopedic surgery this is of moderate perioperative cardio vascular risk however without any modifiable factors at this time she can proceed to planned surgery with moderate but acceptable perioperative cardiovascular risk EKG showed sinus tachycardia otherwise no acute ST changes Blood work was reviewed was significant for elevated liver enzymes otherwise overall unremarkable except for leukocytosis Left femoral neck fracture secondary to mechanical accidental fall at home Management per orthopedic team for pain control DVT prophylaxis type of surgery Transaminitis Cholelithiasis Patient with diagnosed during her last hospital stay end of December with cholelithiasis without acute cholecystitis she went to [facility] where she had stent placed. Liver enzymes overall are trending down. Earlier results from end of December Alkaline phosphatase 1000 AST 41 ALT 39 Patient otherwise asymptomatic COPD and obstructive sleep apnea patient uses supplemental oxygen as night 2 L Blood work showing white count 21.1 afebrile this most likely reactive to acute fracture Hemoglobin unremarkable 12.5 INR 1 unremarkable Renal function unremarkable sodium 138 potassium 4.2 creatinine 1 BUN 21 Full code Recommendations for early transition to BiPAP after extubation to minimum risk of reintubation after surgery
[2023-02-28] MEDS ORDERED: ALBUTEROL NEBULIZED 2.5 MG/3 ML INHALATION PRN ×2 (05:05→08:38)
[2023-02-28] MEDS: LEVOTHYROXINE 112 MCG TAB PO SCH (06:00)
[2023-02-28] MEDS: ALPRAZolam 0.5 MG TAB PO SCH (06:00)
[2023-02-28] MEDS: MORPHINE SULFATE 4 MG/ML SYRINGE IV PRN (07:47)
[2023-02-28] MEDS: SYMBICORT 80-4.5 MCG INHALER INHALATION SCH ×2 (08:09→20:18)
[2023-02-28] MEDS: IPRATROPIUM 0.5 MG/2.5 ML NEBU INHALATION SCH ×4 (08:10→20:19)
[2023-02-28] MEDS ORDERED: DEXTROSE 50% SYRINGE 50 ML IVP PRN ×2 (08:37)
[2023-02-28] MEDS: PANTOPRAZOLE 40 MG TABLET PO SCH ×2 (08:47→20:23)
[2023-02-28] MEDS: PROPRANOLOL 20 MG TAB PO SCH ×2 (08:48→22:04)
[2023-02-28] MEDS ORDERED: FAMOTIDINE 20 MG TAB PO SCH (09:00)
[2023-02-28] MEDS: MAGNESIUM SULFATE-D5W PMX 1 GM in DEXTROSE/WATER 1 100ML.BAG IVPB SCH ×2 (09:03→10:05)
[2023-02-28] MEDS: SODIUM BICARBONATE TAB 650 MG TAB PO SCH ×2 (09:06→20:23)
[2023-02-28] MEDS: ZIPRASIDONE 40 MG CAP PO SCH (09:14)
[2023-02-28] MEDS: buPROPion SR 100 MG TABLET.ER PO SCH ×2 (09:14→20:23)
[2023-02-28] MEDS: HYDROcodone/APAP 5-325MG 1 EACH TAB PO PRN ×2 (10:40→20:25)
--- NOTE | 2023-02-28 11:33 | P.HPOR ---
History of Present Illness H&P Date: 02/28/23 This is a 62-year-old female who is admitted for a left hip fracture after a fall. Patient is seen and evaluated at bedside today. Patient states that she fell in her kitchen on 02/27/2023. The patient presented to the emergency room where x-rays revealed left femoral neck fracture. Patient states that she normally uses a walker to ambulate and lives alone. Patient admits to some pain in the left hip today. Patient states that she was recently admitted to [facility] for issues with her liver and states that she now has GI stents. Patient's past medical history is significant for asthma, COPD, GERD, hyperlipidemia, liver disease, kidney cancer with right nephrectomy, and sleep apnea. Patient denies any fever/chills, numbness, weakness, tingling, abdominal pain, shortness of breath or chest pain. Review of Systems See HPI. Past Medical History Past Medical History: Asthma, COPD, GERD/Reflux, Hyperlipidemia, Liver Disease, Sleep Apnea/CPAP/BIPAP Additional Past Medical History / Comment(s): hx internal hemorrhoid, kidney CA with right nephrectomy, CPAP use, colitis, IBS History of Any Multi-Drug Resistant Organisms: None Reported Past Surgical History: Hysterectomy Additional Past Surgical History / Comment(s): right nephrectomy 04/11/22 Past Anesthesia/Blood Transfusion Reactions: No Reported Reaction Past Psychological History: Anxiety, Bipolar, Depression Smoking Status: Former smoker Past Alcohol Use History: None Reported Past Drug Use History: None Reported Medications and Allergies Home Medications Medication Instructions Recorded Confirmed Type Ziprasidone [Geodon] 40 mg PO DAILY@0530 02/07/14 02/27/23 History ALPRAZolam [Xanax] 0.5 mg PO DAILY@0530 11/07/17 02/27/23 History Albuterol Inhaler [Ventolin Hfa 2 puff INHALATION RT-Q6H PRN 11/07/17 02/27/23 History Inhaler] Mesalamine [Delzicol] 800 mg PO TID@0530,1200,1730 11/07/17 02/27/23 History Propranolol HCl 20 mg PO BID@0530,1730 11/07/17 02/27/23 History Albuterol Nebulized [Ventolin 2.5 mg INHALATION RT-QID PRN 07/03/22 02/27/23 History Nebulized] Atorvastatin Calcium [Lipitor] 40 mg PO HS@1730 07/03/22 02/27/23 History Levothyroxine Sodium [Synthroid] 112 mcg PO DAILY@0530 07/03/22 02/27/23 History Multivitamins, Thera [Multivitamin 1 tab PO DAILY@0530 07/03/22 02/27/23 History (formulary)] Ziprasidone [Geodon] 60 mg PO HS@1730 07/03/22 02/27/23 History buPROPion HCL [Wellbutrin SR] 200 mg PO BID@0530,1730 07/03/22 02/27/23 History Midodrine [ProAmatine] 10 mg PO AC-TID #120 tab 07/07/22 02/27/23 Rx Cyanocobalamin (Vitamin B-12) 1,000 mcg PO BID@0530,1730 01/15/23 02/27/23 History [Vitamin B-12] Dicyclomine [Bentyl] 20 mg PO TID PRN 01/15/23 02/27/23 History Fluticasone/Umeclidin/Vilanter 1 puff INHALATION RT-DAILY 01/15/23 02/27/23 History [Trelegy Ellipta 100-62.5-25] HYDROcodone/APAP 5-325MG [[place] 1 tab PO Q6HR PRN 3 Days #12 tab 02/18/23 02/27/23 Rx 5-325] Magnesium Oxide [Mag-Ox] 800 mg PO BID@0530,1730 02/27/23 02/27/23 History Pantoprazole [Protonix] 40 mg PO BID@0530,1730 02/27/23 02/27/23 History Sodium Bicarbonate Tab 650 mg PO BID@0530,1730 02/27/23 02/27/23 History Allergies Allergy/AdvReac Type Severity Reaction Status Date / Time codeine Allergy Rash/Hives Verified 02/27/23 22:40 Penicillins Allergy Rash/Hives Verified 02/27/23 22:40 on feet Sulfa (Sulfonamide Allergy Rash/Hives Verified 02/27/23 22:40 Antibiotics) ibuprofen [From Motrin] AdvReac Nausea & Verified 02/27/23 22:40 Vomiting Physical Examination On exam patient is resting comfortably in bed in no acute distress. Patient is alert and oriented 3. Left lower extremity: Left lower extremity is shortened and externally rotated. Calf is soft and nontender to palpation. Sensation intact. Patient has full foot and ankle motion. Left lower extremity is well-perfused. Head is normocephalic and atraumatic. Exams of bilateral upper extremities and right lower extremity are within normal limits. Results X-rays of left hip and pelvis reveal a displaced left femoral neck fracture. - Labs Labs: Abnormal Lab Results - Last 24 Hours (Table) 02/27/23 02/27/23 Range/Units 22:47 22:47 WBC 21.1 H (3.8-10.6) k/uL RDW 16.2 H (11.5-15.5) % Neutrophils # 18.6 H (1.3-7.7) k/uL BUN 21 H (7-17) mg/dL AST 41 H (14-36) U/L ALT 39 H (4-34) U/L Alkaline Phosphatase 1000 H (38-126) U/L Total Protein 6.0 L (6.3-8.2) g/dL Albumin 2.9 L (3.5-5.0) g/dL H & H 02/27/23 Range/Units 22:47 Hgb 12.5 (11.4-16.0) gm/dL Hct 39.5 (34.0-46.0) % Coagulation 02/27/23 Range/Units 23:53 INR 1.0 (<1.2) Result Diagrams: 02/27/23 22:47 02/27/23 22:47 Assessment and Plan Assessment: Left femoral neck fracture. (1) Fall Current Visit: Yes Status: Acute Code(s): W19.XXXA - UNSPECIFIED FALL, INITIAL ENCOUNTER SNOMED Code(s): 3648874 (2) Left displaced femoral neck fracture Current Visit: Yes Status: Acute Code(s): S72.002A - FRACTURE OF UNSP PART OF NECK OF LEFT FEMUR, INIT SNOMED Code(s): 3157787 Plan: 1. Patient is NPO. 2. Appreciate input from internal medicine. 3. Planning for left hip hemiarthroplasty with direct anterior approach later today pending medical clearance and patient consent.
[2023-02-28] MEDS ORDERED: LACTATED RINGERS 1,000 ML IV ONE ×2 (12:30→14:39)
[2023-02-28] MEDS ORDERED: IV FLUID CONTINUATION 1,000 ML IV ONE (12:30)
[2023-02-28] MEDS ORDERED: MIDAZOLAM 2 MG/2 ML VIAL IVP ONE (13:23)
[2023-02-28 13:25] LABS: Appearance,Urine Clear (Clear); Bilirubin,Urine Negative (Negative); Blood,Urine Negative (Negative); Color,Urine Dark Orange; Glucose,Urine (UA) Negative (Negative); Ketones,Urine Negative (Negative); Leukocyte Esterase,Urine Negative (Negative); Nitrite,Urine Negative (Negative); Protein,Urine Negative (Negative); Specific Gravity,Urine 1.015 (1.001-1.035); Urobilinogen,Urine 0.2 mg/dL (<2.0)
[2023-02-28] MEDS ORDERED: ROPIVACAINE 5 MG/ML 30 ML VIAL ONE (13:38)
[2023-02-28] MEDS ORDERED: ROCURONIUM 10 MG/ML (5 ML VIAL) IV ONE (13:38)
[2023-02-28] MEDS ORDERED: GLYCOPYRROLATE 0.2 MG/ML 2 ML VIAL ONE (13:38)
[2023-02-28] MEDS ORDERED: NEOSTIGMINE 1 MG/ML 10 ML VIAL ONE (13:38)
[2023-02-28] MEDS ORDERED: LIDOCAINE 1% INJ 10MG/ML (20 ML MDV) ONE (13:38)
[2023-02-28] MEDS ORDERED: TRANEXAMIC 1,000 MG/100ML-NACL PREMIX BAG ONE (13:38)
[2023-02-28] MEDS ORDERED: fentaNYL (PF) 50 MCG/ML 2 ML AMP ONE (13:38)
[2023-02-28] MEDS ORDERED: SUCCINYLCHOLINE CHLORIDE 200 MG/10 ML VIAL IV ONE (13:38)
[2023-02-28] MEDS ORDERED: PROPOFOL 10 MG/ML 20 ML VIAL IV ONE (13:38)
[2023-02-28] MEDS ORDERED: DEXAMETHASONE SOD PHOSPHATE 4 MG/ML 1 ML VIAL ONE (13:38)
[2023-02-28] MEDS ORDERED: PHENYLEPHRINE 10 MG/ML VIAL ONE (13:38)
--- NOTE | 2023-02-28 13:57 | P.ANPRN ---
Procedure Note - Anesthesia - Nerve Block Performed Left Jeff Single Time Out Performed: Yes Date of Procedure: 02/28/23 Procedure Start Time: Procedure Stop Time: Location of Patient: PreOp Indication: Acute Post-Operative Pain, Dx/Pain Location, Requested by Surgeon Sedation Type: Sedate with meaningful contact maintained Preparation: Sterile Prep Position: Supine Catheter: None Needle Types: Pajunk Needle Gauge: 21 Ultrasound used to visualize needle placement: Yes Ultrasound used to observe medication spread: Yes Injectate: 0.5% Ropivacaine (see comment for volume) (20cc) Blood Aspirated: No Pain Paresthesia on Injection Noted: No Resistance on Injection: Normal Image Stored and Saved: Yes Events: Uneventful and Well Tolerated
[2023-02-28] MEDS ORDERED: ROPIVACAINE 5 MG/ML 30 ML VIAL MISCELLANE ONE ×2 (14:12→14:37)
[2023-02-28] MEDS ORDERED: ceFAZolin 1,000 MG in SODIUM CHLORIDE 0.9% 1,000 ML IRRIGATION ONE (14:13)
--- NOTE | 2023-02-28 14:43 | P.OP ---
Date of Procedure: 02/28/23 Preoperative Diagnosis: Subcapital fracture left hip Postoperative Diagnosis: Subcapital fracture left hip Procedure(s) Performed: Left hip hemiarthroplasty with a direct anterior approach Implants: Gerard and nephew Polarstem size 1 standard with a collar [employer]hew tandem unipolar, 43 mm [employer]ard [employer]hew tandem unipolar 12/14 taper sleeve, +0 mm All components were press-fit. Anesthesia: spinal Surgeon: Jonathan Zeng Maintenance Mechanic #1: Aide Page Estimated Blood Loss (ml): 250 Pathology: none sent Condition: stable Disposition: PACU Indications for Procedure: This is a 62-year-old female that sustained a ground-level fall at home last night. X-rays demonstrated a subcapital fracture of her left hip. After discussing the surgical and nonsurgical treatment options with her at length, I recommended a left hip hemiarthroplasty with a direct anterior approach. Informed consent was obtained. Operative Findings: The operative findings are consistent with a subcapital fracture of the left hip Description of Procedure: The patient was seen and evaluated in the preoperative area and the consent was reviewed. The operative site was marked with a skin marker. The patient verified the procedure and operative site. A ILYA block was placed by anesthesia in the preoperative area. The patient was then brought to the operating room and given preoperative antibiotics intravenously. 1 g of Tranexamic acid was also given intravenously. A spinal anesthetic was administered by the anesthesia department. The patient was then placed on the [place] table with the bony prominences well-padded. The hip area was then prepped with a ChloraPrep solution and draped in the usual sterile fashion. A universal timeout was then performed, which confirmed the patient's name, surgical site, ALLERGIES, and procedure being performed on the consent. Next the incision site was located at 1 cm distal and 4 cm lateral to the anterior superior iliac spine. The skin and subcutaneous tissues were sharply incised. Incision was carefully dissected down to the fascia overlying the tensor fascia danielle muscle. This fascia was then incised in line with the muscle fibers. Care was taken to stay laterally in order to avoid injuring the lateral femoral cutaneous nerve. Next, using blunt finger dissection, the tensor fascia danielle muscle was dissected off its investing fascia. The muscle was then carefully retracted laterally with a cobra retractor over the lateral neck of the femur. Next, the circumflex vessels were identified and cauterized using the Aquamantis device. The anterior hip capsule was then exposed. The capsule was then opened and an inverted T fashion. The retractors were then placed intracapsularly. The retractors were maintained intracapsular throughout the procedure. The proximal femur was then visualized. A small amount of traction was placed on the leg. The femoral neck was then osteotomized at the appropriate level above the lesser trochanter. A small wedge of bone was then removed from the remaining femoral head. Next, using a corkscrew the femoral head was removed from the acetabulum. The femoral head was then measured. Attention was then turned to the acetabulum. The acetabulum was evaluated and found to have minimal arthritic changes. Attention was then directed to the femur. With the aid of the [place] table, the femur was externally rotated to approximately 130, extended, and adducted under the opposite leg. A side hook was then placed under the proximal femur, and the side hook elevator was used to elevate the proximal femur while releasing the capsule. Retractors were then placed. A capsular release was performed, as well as a release of the conjoined tendon, which afforded excellent visualiz ation of the proximal femur. Next, a box osteotome was used to lateralize the proximal femur. A sail finisher hand was then used to locate the femoral canal. Sequential broaching was then performed with appropriate size which afforded excellent fixation in the proximal femur. A trial was then placed with appropriate head and neck, and the hip was gently reduced with the aid of the [place] table. Fluoroscopy was then used to check position of the components, as well as to evaluate the leg lengths and offset. The leg lengths and offset were measured as closely as possible to ensure stability of the hip. The hip was then gently dislocated and the trials were then removed. Final implants were then impacted and the hip was again reduced. Final fluoroscopic x-rays confirmed that the components were in anatomic position. The leg lengths and offset were measured and were found to coincide with the trial measurements. The hip was also taken through range of motion, and found to be stable. The hip was then copiously irrigated with antibiotic solution with pulsatile lavage. The hip was then irrigated with Irrisept solution. The soft tissues were then injected with a ropivacaine solution. A second dose of 1 g of Tranexamic acid was also given intravenously. The fascia was then closed with 2-0 strata fix suture. The subcutaneous tissue was closed with 3-0 Vicryl. The subcuticular tissue was closed with 3-0 strata fix suture. The skin was then closed with Exofin skin glue. After the glue and dried, and Optifoam silver impregnated dressing was applied. The patient was then transferred to the recovery room in stable condition. The assistant grocery store manager SHABANA Vásquez was required due to the complexity of surgery, and the need for skilled assistant federal public defender for positioning, draping, exposure, retraction, and closure of the wound.
--- NOTE | 2023-02-28 14:57 | XR ---
Fluoroscopy INDICATION: Pain FINDINGS: Fluoroscopy time: 35.4 seconds. Total dose area product (DAP) in uGy*m?, mGy*cm? (or similar): 1.2215 Images obtained: 4. IMPRESSION: 1. Documentation of fluoroscopy.
[2023-02-28] MEDS ORDERED: MAGNESIUM HYDROXIDE 2,400 MG/30 ML CUP PO PRN (15:08)
[2023-02-28] MEDS ORDERED: HYDROmorphone 0.5 MG/0.5 ML SYRINGE IVP PRN ×2 (15:08)
[2023-02-28] MEDS ORDERED: NALOXONE 0.4 MG/ML 1 ML VIAL IV PRN (15:08)
--- NOTE | 2023-02-28 15:36 | XR ---
EXAMINATION TYPE: XR Hip Limited LT DATE OF EXAM: 02/28/2023 COMPARISON: None HISTORY: Left hip replacement TECHNIQUE: AP left hip FINDINGS: There is placement of a left prosthesis. No acute fractures are evident. Surgical soft tiss ue changes are evident. IMPRESSION: 1. No acute fracture post left hip replacement
--- NOTE | 2023-02-28 16:32 | P.PN ---
Subjective Progress Note Date: 02/28/23 Hospital course: Patient is a very pleasant 62-year-old female with a past medical history of COPD and home oxygen dependent nightly 2 L, hypertension, hyperlipidemia, renal cancer status post right nephrectomy, anxiety, depression, bipolar disorder, and recent diagnosis of cholelithiasis without acute cholecystitis status post GI stents secondary to significant transaminitis. She presented to the hospital on 02/27/23 secondary to slip and fall resulting in injury to left hip. She underwent full evaluation in the emergency department. X-ray left hip and femur revealed acute mildly displaced and angulated subcapital fracture of the proximal left femur. X-ray lumbar spine showing compression fracture of L1 with anterior wedging and approximately 40% height loss, new compared to prior study. Chest x-ray revealing left basilar opacity possibly representing atelectasis or emerging infiltrate. EKG showing sinus tachycardia at 108 bpm with no significant T-wave or ST abnormalities showing no signs of acute ischemia. Labs are completed and reviewed. CBC showing leukocytosis with WBC count 21.1. Coagulation profile normal findings. BMP unremarkable showing stable renal function with BUN of 21, creatinine 1.00, and GFR of 61. Blood glucose was 98. Magnesium slightly low at 1.7. Liver profile showing persistent transaminitis but downtrending from recent with current AST of 41, ALT 39, and alkaline phosphatase of 1000 (01/15/23 liver profile revealed AST 521, ALT 326, and alkaline phosphatase of 2390). Patient admitted under orthopedic surgery team and we were consulted for medical clearance and medical management throughout patient's hospitalization. Physical exam: Vital signs reviewed and stable. General: Nontoxic, no distress and appears stated age. Derm: Skin warm and dry, normal coloration for ethnicity. Head: Atraumatic, normocephalic and symmetric. Eyes: EOMs intact, no lid lag, and anicteric sclera Mouth: no lip lesions, mucus membranes moist Cardiovascular: regular rate and rhythm with normal S1S2, systolic murmur, positive posterior tibial pulses bilaterally, and cap refill < 2 seconds. Lungs: Respirations even, regular, and unlabored on room air. Lungs diminished with no rhonchi, no rales, no wheezing, and no accessory muscle usage. Abdominal: soft, nontender to palpation, no guarding, no appreciable organomegaly Ext: No gross muscle atrophy, no edema, no contractures. Sensation intact. Left lower extremity with left lateral rotation. Neuro: Speech clear, face symmetrical and CN II-XII grossly intact with no noted focal neuro deficits Psych: Alert and oriented to person, place, time, and situation. Appropriate and pleasant affect. Assessment and Plan of Care: Acute urinary retention Likely secondary to femur fracture and pain. Orders placed for Wells catheter insertion, patient had greater than 500 mL of urinary output after insertion of Wells catheter. Urinalysis negative for infection. COPD with chronic respiratory failure on chronic home oxygen nightly 2 L Obstructive sleep apnea -X-ray revealing a left basilar opacity, likely atelectasis -Patient to have early education and encouragement on use of incentive spirometer 10-15 times hourly while awake. -Recommendations for early transition to BiPAP after extubation to minimum risk of reintubation after surgery Leukocytosis WBC count 21.1, No signs of infection at this time, leukocytosis likely secondary to stress response secondary to acute left femur fracture. Transaminitis Cholelithiasis -Patient with diagnosed during her last hospital stay end of December with cholelithiasis without acute cholecystitis she went to [facility] where she had biliary stent placed. -Liver enzymes overall are trending down. Earlier results from end of December -Alkaline phosphatase 1000 AST 41 ALT 39..May need to consider further evalu ation of alk phos elevation. check GGT -Patient otherwise asymptomatic History of renal cancer status post right nephrectomy -Renal function unremarkable sodium 138 potassium 4.2 creatinine 1 BUN 21 Left femoral neck fracture secondary to mechanical accidental fall at home -Management per orthopedic team for pain control DVT prophylaxis type of surgery Vital signs reviewed this morning with blood pressure 120/72, heart rate 119, respiratory rate 18, temp 98.5F, and SpO2 of 92% on 4L. OR nursing team at bedside in the emergency department to take patient upstairs. Patient had not had urinary output since arrival to this facility and had distended bladder noted. Order was placed for insertion of Wells catheter resulting in greater than 500 mL of urinary output. Patient being taken to the operating room at this time for urgent left hip hemiarthroplasty secondary to subcapital fracture of left hip. Thank you for allowing us to participate in the care of this pleasant patient. Do not hesitate to contact us with questions. Someone can be reached from the [facility] hospitalist group all hours of the day at [phone] or via perfect serve. Patient was seen independently by Nurse Pracitioner. This document was prepared using [employer] dictation software. Please allow for errors in clothes shaker, while rare they do occur. Elpidio Irving DRAWING SUPERVISOR rendered care for this patient independently, reviewed the findings and plan as documented in the note above. I did not physically speak with or examine the patient on this date. Objective - Vital Signs Vital signs: Vital Signs Temp 97.8 F 02/27/23 21:12 Pulse 114 H 02/28/23 08:10 Resp 16 02/28/23 04:40 BP 111/67 02/28/23 04:40 Pulse Ox 92 L 02/28/23 08:10 FiO2 Intake & Output 02/27/23 02/28/23 02/28/23 18:59 06:59 18:59 Weight 58.967 kg - Labs CBC & Chem 7: 02/27/23 22:47 02/27/23 22:47 Labs: Abnormal Lab Results - Last 24 Hours (Table) 02/27/23 02/27/23 Range/Units 22:47 22:47 WBC 21.1 H (3.8-10.6) k/uL RDW 16.2 H (11.5-15.5) % Neutrophils # 18.6 H (1.3-7.7) k/uL BUN 21 H (7-17) mg/dL AST 41 H (14-36) U/L ALT 39 H (4-34) U/L Alkaline Phosphatase 1000 H (38-126) U/L Total Protein 6.0 L (6.3-8.2) g/dL Albumin 2.9 L (3.5-5.0) g/dL
--- NOTE | 2023-02-28 17:18 | FL ---
Intraoperative/procedural fluoroscopic services were provided. Total fluoroscopy time is 35.4 seconds with a total of 3 submitted images to PACS. Please see the operative/procedural note for further det ails. DAP: 1.99010 Gycm2
[2023-02-28] MEDS: MIDODRINE 5 MG TAB PO SCH ×2 (18:20→19:07)
[2023-02-28] MEDS: BALSALAZIDE DISODIUM 750 MG CAPSULE PO SCH ×2 (18:20→20:25)
[2023-02-28] MEDS: TRANEXAMIC 1,000 MG/100ML-NACL 1,000 MG in SALINE 1 100ML.BAG IVPB SCH ×2 (18:20→18:22)
[2023-02-28] MEDS: ATORVASTATIN 40 MG TAB PO SCH (20:24)
[2023-02-28] MEDS: ZIPRASIDONE 60 MG CAP PO SCH (20:25)
[2023-02-28] MEDS: SENNOSIDES-DOCUSATE SODIUM 1 EACH TAB PO SCH (20:29)
[2023-03-01] MEDS: HYDROcodone/APAP 5-325MG 1 EACH TAB PO PRN ×3 (01:45→10:45)
[2023-03-01] MEDS: SODIUM CHLORIDE 0.9% 1,000 ML IV SCH ×4 (01:56→23:28)
[2023-03-01] MEDS: ALPRAZolam 0.5 MG TAB PO SCH (03:10)
[2023-03-01] MEDS: MIDODRINE 5 MG TAB PO SCH ×3 (05:48→17:27)
[2023-03-01] MEDS: BALSALAZIDE DISODIUM 750 MG CAPSULE PO SCH ×3 (05:48→17:26)
[2023-03-01] MEDS: ZIPRASIDONE 40 MG CAP PO SCH (05:48)
[2023-03-01] MEDS: SODIUM BICARBONATE TAB 650 MG TAB PO SCH ×2 (05:48→17:27)
[2023-03-01] MEDS: buPROPion SR 100 MG TABLET.ER PO SCH ×2 (05:48→17:36)
[2023-03-01] MEDS: LEVOTHYROXINE 112 MCG TAB PO SCH (05:48)
[2023-03-01] MEDS: PANTOPRAZOLE 40 MG TABLET PO SCH ×2 (05:49→17:27)
[2023-03-01] MEDS: PROPRANOLOL 20 MG TAB PO SCH ×2 (08:27→20:23)
[2023-03-01] MEDS: FAMOTIDINE 20 MG TAB PO SCH (08:27)
[2023-03-01 08:41] LABS: HCT 32.1 % (37.2-46.3); MCH 30.5 pg (27.0-32.0); MCHC 31.2 g/dL (32.0-37.0); MCV 97.9 FL (80.0-97.0); Mean Platelet Volume 10.6 FL (9.5-12.2); NRBC Per 100 WBC 0 X 10*3/uL (0.00-0.01); Platelet Count 381 X 10*3/uL (140-440); RBC 3.28 X 10*6/uL (4.10-5.20); RDW 16.4 % (11.5-14.5); WBC 23.23 X 10*3/uL (4.50-10.00)
[2023-03-01 08:47] LABS: ALT 19 U/L (8-44); AST 29 U/L (13-35); Albumin 2.2 g/dL (3.8-4.9); Alkaline Phosphatase 818 U/L (41-126); Blood Urea Nitrogen 19.8 mg/dL (9.0-27.0); Calcium 8.2 mg/dL (8.7-10.3); Carbon Dioxide 25.4 mmol/L (21.6-31.8); Chloride 103 mmol/L (96-109); Globulin 2.2 g/dL (1.6-3.3); Glucose 62 mg/dL (70-110); Magnesium 1.8 mg/dL (1.5-2.4); Potassium 4.7 mmol/L (3.5-5.5); Sodium 137 mmol/L (135-145); Total Bilirubin 0.8 mg/dL (0.3-1.2); Total Protein 4.4 g/dL (6.2-8.2)
[2023-03-01] MEDS: IPRATROPIUM 0.5 MG/2.5 ML NEBU INHALATION SCH ×4 (09:24→19:45)
[2023-03-01] MEDS: SYMBICORT 80-4.5 MCG INHALER INHALATION SCH ×2 (09:24→19:45)
[2023-03-01 09:34] LABS: Basophils % (A) 0.4 %; Eosinophils # (A) 0.19 X 10*3/uL (0.04-0.35); Eosinophils % (A) 0.8 %; Lymphocytes # (A) 1.46 X 10*3/uL (0.90-5.00); Lymphocytes % (A) 6.3 %; Monocytes # (A) 1.19 X 10*3/uL (0.20-1.00); Monocytes % (A) 5.1 %; Neutrophils # (A) 20.11 X 10*3/uL (1.80-7.70); Neutrophils % (A) 86.6 %; RBC Morphology Normal (Normal)
--- NOTE | 2023-03-01 10:08 | US ---
EXAMINATION TYPE: US abdomen limited DATE OF EXAM: 03/01/2023 COMPARISON: CT & US CLINICAL INDICATION: Female, 62 years old with history of Transaminitis; Abnormal labs, right kidney surgically absent TECHNIQUE: Multiple sonographic images of the right upper quadrant are obtained. FINDINGS: EXAM MEASUREMENTS: Liver Length: 16.5 cm Gallbladder Wall: 0.2 cm CBD: 0.4 cm FOUNTAIN VENDING MECHANIC NOTES: Pancreas: wnl, tail obscured by overlying bowel gas Liver: Lobulated contour especially left lobe Gallbladder: Contracted- pt states she is NPO- probable stone at neck as visualized on prior Evidence for sonographic Medrano's sign: No CBD: wnl Right Kidney: Surgically absent IMPRESSION: 1. Thickened gallbladder wall with cholelithiasis. Correlate for acute cholecystitis.
--- NOTE | 2023-03-01 10:14 | P.PN ---
Subjective Progress Note Date: 03/01/23 This is a 62-year-old female who is status post left hip hemiarthroplasty with direct anterior approach. This is postoperative day #1 and patient is seen and evaluated at bedside with Dr. Jonathan Zeng. Patient states that she is doing well and she was able to get out of bed with nursing staff. Patient denies any new complaints today. Objective - Vital Signs Vital signs: Vital Signs Temp 97.9 F 03/01/23 08:10 Pulse 84 03/01/23 09:38 Resp 19 03/01/23 08:10 BP 93/57 03/01/23 08:10 Pulse Ox 92 L 03/01/23 09:27 FiO2 Intake & Output 02/28/23 03/01/23 03/01/23 18:59 06:59 18:59 Intake Total 1051 880 Output Total 1075 300 Balance -24 580 Weight 58.967 kg Intake: IV 1051 Intake, IV Titration 880 Amount Sodium Chloride 0.9% 1, 780 000 ml @ 65 mls/hr IV . [id number] Rx#:[id number] ceFAZolin 2 gm In Sodium 100 Chloride 0.9% 50 ml @ 100 mls/hr IVPB Q8H [facility] Rx#: [id number] Output: Urine 825 300 Estimated Blood Loss 250 Other: Voiding Method Indwelling Catheter - Exam Vital signs are stable. Patient is in no acute distress and is alert and oriented 3. Calf is soft and nontender to palpation. Dressing is clean, dry, and intact. Patient has full foot and ankle motion without pain or difficulty. Sensation intact. Neurovascular status and circulatory status are intact. - Labs CBC & Chem 7: 03/01/23 05:42 03/01/23 05:42 Labs: Abnormal Lab Results - Last 24 Hours (Table) 02/28/23 03/01/23 03/01/23 Range/Units 08:14 05:42 05:42 WBC 23.23 H (4.50-10.00) X 10*3/uL RBC 3.28 L (4.10-5.20) X 10*6/uL Hgb 10.0 L (12.0-15.0) g/dL Hct 32.1 L (37.2-46.3) % MCV 97.9 H (80.0-97.0) FL MCHC 31.2 L (32.0-37.0) g/dL RDW 16.4 H (11.5-14.5) % Immature Gran # 0.18 H (0.00-0.04) X 10*3/uL Neutrophils # 20.11 H (1.80-7.70) X 10*3/uL Monocytes # 1.19 H (0.20-1.00) X 10*3/uL Glucose 62 L (70-110) mg/dL Calcium 8.2 L (8.7-10.3) mg/dL GGT 663 H (0-38) U/L Alkaline Phosphatase 818 H (41-126) U/L Total Protein 4.4 L (6.2-8.2) g/dL Albumin 2.2 L (3.8-4.9) g/dL Albumin/Globulin Ratio 1.00 L (1.60-3.17) Ratio Assessment and Plan Assessment: Left femoral neck fracture. Status post left hip hemiarthroplasty with direct anterior approach. (1) Fall Current Visit: Yes Status: Acute Code(s): W19.XXXA - UNSPECIFIED FALL, INITIAL ENCOUNTER SNOMED Code(s): 2531330 (2) Left displaced femoral neck fracture Current Visit: Yes Status: Acute Code(s): S72.002A - FRACTURE OF UNSP PART OF NECK OF LEFT FEMUR, INIT SNOMED Code(s): 6411293 Plan: Continue routine postop care and pain control. Continue anticoagulation per internal medicine. Weightbearing as tolerated with a walker. Leave dressing in place for 7 days. Appreciate input from internal medicine. Anticipate discharge to ECF in the next 24-48 hours.
[2023-03-01 11:24] LABS: Glucose,Whole Blood 97 mg/dL (70-110)
--- NOTE | 2023-03-01 12:16 | P.PN ---
Subjective Progress Note Date: 03/01/23 Subjective: Seen and examined at bedside. No acute events overnight. Denies any sign ificant pain. Continues to have Wells catheter in place. Pertinent positives and negatives as discussed above, a complete review of systems was performed and all other systems are negative. Vitals Signs Reviewed. General: nontoxic, no distress, appears at stated age Derm: warm, dry, dressing clean, dry, intact Head: atraumatic, normocephalic, symmetric Eyes: EOMI, no lid lag, anicteric sclera Mouth: no lip lesion, mucus membranes moist Cardiovascular: S1S2 reg, no murmur Lungs: CTA bilateral, no rhonchi, no rales , no accessory muscle use Abdominal: soft, nontender to palpation, no guarding, no appreciable organomegaly Ext: no gross muscle atrophy, no edema, no contractures Neuro: CN II-XI grossly intact, no focal neuro deficits Psych: Alert, oriented, appropriate affect Data Reviewed Today: Pertinent Labs: WBC 23.23, hemoglobin 10, platelet 381, sodium 137, potassium 4.7, creatinine 1, AST 29, ALT 19, ALP EDT Imaging: Right upper quadrant ultrasound shows thickened gallbladder with cholelithiasis Assessment and Plan: Acute urinary retention -Voiding trial pending Leukocytosis Suspected Acute on chronic cholecystitis -ALP down trending -Right upper quadrant ultrasound consistent with gallbladder wall thickening -Surgery consulted -Hold off IV antibiotics -She did have diagnosis of cholelithiasis without acute cholecystitis at the end of December, and had biliary stent placed. -Patient remains asymptomatic -Repeat CBC and CMP tomorrow COPD with chronic respiratory failure on chronic home oxygen nightly 2 L, no exacerbation Obstructive sleep apnea -X-ray revealing a left basilar opacity, likely atelectasis -Patient to have early education and encouragement on use of incentive spirometer 10-15 times hourly while awake. History of renal cancer status post right nephrectomy Left femoral neck fracture secondary to mechanical accidental fall at home Acute blood loss anemia, anticipated outcome of surgery -Management per orthopedic team for pain control and DVT prophylaxis type of surgery -Patient on oral Lincoln as needed, IV Dilaudid as needed, monitor for respiratory depression -Started on Lovenox 40 daily Chronic: Hypothyroidism Dyslipidemia Depression Psychotic disorder -Medications reviewed and reconciled Thank you for allowing us to participate in the care of this pleasant patient. Do not hesitate to contact us with questions. Someone can be reached from the [facility] hospitalist group all hours of the day at [phone] or via perfect serve. Objective - Vital Signs Vital signs: Vital Signs Temp 97.9 F 03/01/23 08:10 Pulse 84 03/01/23 09:38 Resp 19 03/01/23 08:10 BP 93/57 03/01/23 08:10 Pulse Ox 92 L 03/01/23 09:27 FiO2 Intake & Output 02/28/23 03/01/23 03/01/23 18:59 06:59 18:59 Intake Total 1051 880 Output Total 1075 300 Balance -24 580 Weight 58.967 kg Intake: IV 1051 Intake, IV Titration 880 Amount Sodium Chloride 0.9% 1, 780 000 ml @ 65 mls/hr IV . [id number] [facility] Rx#:[id number] ceFAZolin 2 gm In Sodium 100 Chloride 0.9% 50 ml @ 100 mls/hr IVPB Q8H TEJ Rx#: [id number] Output: Urine 825 300 Estimated Blood Loss 250 Other: Voiding Method Indwelling Catheter - Labs CBC & Chem 7: 03/01/23 05:42 03/01/23 05:42 Labs: Abnormal Lab Results - Last 24 Hours (Table) 02/28/23 03/01/23 03/01/23 Range/Units 08:14 05:42 05:42 WBC 23.23 H (4.50-10.00) X 10*3/uL RBC 3.28 L (4.10-5.20) X 10*6/uL Hgb 10.0 L (12.0-15.0) g/dL Hct 32.1 L (37.2-46.3) % MCV 97.9 H (80.0-97.0) FL MCHC 31.2 L (32.0-37.0) g/dL RDW 16.4 H (11.5-14.5) % Immature Gran # 0.18 H (0.00-0.04) X 10*3/uL Neutrophils # 20.11 H (1.80-7.70) X 10*3/uL Monocytes # 1.19 H (0.20-1.00) X 10*3/uL Glucose 62 L (70-110) mg/dL Calcium 8.2 L (8.7-10.3) mg/dL GGT 663 H (0-38) U/L Alkaline Phosphatase 818 H (41-126) U/L Total Protein 4.4 L (6.2-8.2) g/dL Albumin 2.2 L (3.8-4.9) g/dL Albumin/Globulin Ratio 1.00 L (1.60-3.17) Ratio
--- NOTE | 2023-03-01 13:17 | P.GSCN ---
History of Present Illness Consult date: 03/01/23 History of present illness: CHIEF COMPLAINT: Fall HISTORY OF PRESENT ILLNESS: This is a 62-year-old female who presented with a fall and was found have evidence of a left hip fracture. She was seen by orthopedics and underwent this surgery for her hip fracture. Surgical service has been consulted for possible cholecystitis and recent biliary stent placement. Patient was in our ER at the end of December and required a transfer to [facility] for acute cholecystitis, hyperbilirubinemia and hepatitis. She had a biliary stent placed at that time. She is to follow up with GI service about biliary stent removal in March and was supposed to go down to [place] for what sounds like endoscopic ultrasound. Patient did not schedule that appointment due to transportation issues. Patient denies any abdominal pain. She is tolerating diet. Denies any nausea or vomiting. She is afebrile. Her white count is elevated. Ultrasound had shown thickening gallbladder wall with gallstones and to correlate for acute cholecystitis. PAST MEDICAL HISTORY: History of kidney cancer status post right nephrectomy, Asthma, COPD, GERD/Reflux, Hyperlipidemia, Liver Disease, Sleep Apnea/CPAP/BIPAP PAST SURGICAL HISTORY: Hysterectomy MEDICATIONS: See below ALLERGIES: See below SOCIAL HISTORY: No illicit drug use. REVIEW OF SYSTEMS: CONSTITUTIONAL: Denies fever or chills. HEENT: Denies blurred vision, vision changes, or eye pain. Denies hemoptysis CARDIOVASCULAR: Denies chest pain or pressure. RESPIRATORY: No shortness of breath. GASTROINTESTINAL: See HPI for pertinent findings HEMATOLOGIC: Denies bleeding disorders. GENITOURINARY: Denies any blood in urine or increased urinary frequency. SKIN: Denies pruitis. Denies rash. PHYSICAL EXAM: VITAL SIGNS: Reviewed GENERAL: Well-developed in no acute distress. HEENT: No sclera icterus. Extraocular movements grossly intact. Moist buccal mucosa. Head is atraumatic, normocephalic. No nasal drainage. ABDOMEN: Soft. Nondistended. Nontender NEUROLOGIC: Alert and oriented. Cranial nerves II through XII grossly intact. LABORATORY DATA: WBC elevated at 23.23 Hgb 10.0 platelets 381 Sodium 137 potassium is 4.7 creatinine 1.0 Total bilirubin 0.8 AST 41 down to 29 ALT 39 down to 19 alk phos 1000 down to 88 GGT 663 IMAGING: Abdominal ultrasound showing thickened gallbladder wall with cholelithiasis. Correlate for acute cholecystitis ASSESSMENT: 1. Acute on chronic Cholecystitis. Ultrasound showing thickened gallbladder wall with cholelithiasis 2. History of recent biliary stent placement at [facility] PLAN: -Continue to monitor -Repeat liver enzymes in am -Repeat CBC in a.m. -Add antibiotics -Patient to follow up GI specialist outpatient for removal of biliary stent Thank you for this consultation Physician Perinatal Instructor note has been reviewed by physician. Signing provider agrees with the documented findings, assessment, and plan of care. Past Medical History Past Medical History: Asthma, COPD, GERD/Reflux, Hyperlipidemia, Liver Disease, Sleep Apnea/CPAP/BIPAP Additional Past Medical History / Comment(s): hx internal hemorrhoid, kidney CA with right nephrectomy, CPAP use, colitis, IBS History of Any Multi-Drug Resistant Organisms: None Reported Past Surgical History: Hysterectomy, Joint Replacement Additional Past Surgical History / Comment(s): right nephrectomy 04/11/22 Past Anesthesia/Blood Transfusion Reactions: No Reported Reaction Past Psychological History: Anxiety, Bipolar, Depression Smoking Status: Former smoker Past Alcohol Use History: None Reported Past Drug Use History: None Reported Medications and Allergies Home Medications Medication Instructions Recorded Confirmed Type Ziprasidone [Geodon] 40 mg PO DAILY@0530 02/07/14 02/27/23 History ALPRAZolam [Xanax] 0.5 mg PO DAILY@0530 11/07/17 02/27/23 History Albuterol Inhaler [Ventolin Hfa 2 puff INHALATION RT-Q6H PRN 11/07/17 02/27/23 History Inhaler] Mesalamine [Delzicol] 800 mg PO TID@0530,1200,1730 11/07/17 02/27/23 History Propranolol HCl 20 mg PO BID@0530,1730 11/07/17 02/27/23 History Albuterol Nebulized [Ventolin 2.5 mg INHALATION RT-QID PRN 07/03/22 02/27/23 History Nebulized] Atorvastatin Calcium [Lipitor] 40 mg PO HS@1730 07/03/22 02/27/23 History Levothyroxine Sodium [Synthroid] 112 mcg PO DAILY@0530 07/03/22 02/27/23 History Multivitamins, Thera [Multivitamin 1 tab PO DAILY@0530 07/03/22 02/27/23 History (formulary)] Ziprasidone [Geodon] 60 mg PO HS@1730 07/03/22 02/27/23 History buPROPion HCL [Wellbutrin SR] 200 mg PO BID@0530,1730 07/03/22 02/27/23 History Midodrine [ProAmatine] 10 mg PO AC-TID #120 tab 07/07/22 02/27/23 Rx Cyanocobalamin (Vitamin B-12) 1,000 mcg PO BID@0530,1730 01/15/23 02/27/23 History [Vitamin B-12] Dicyclomine [Bentyl] 20 mg PO TID PRN 01/15/23 02/27/23 History Fluticasone/Umeclidin/Vilanter 1 puff INHALATION RT-DAILY 01/15/23 02/27/23 History [Trelegy Ellipta 100-62.5-25] HYDROcodone/APAP 5-325MG [[place] 1 tab PO Q6HR PRN 3 Days #12 tab 02/18/23 02/27/23 Rx 5-325] Magnesium Oxide [Mag-Ox] 800 mg PO BID@0530,1730 02/27/23 02/27/23 History Pantoprazole [Protonix] 40 mg PO BID@0530,1730 02/27/23 02/27/23 History Sodium Bicarbonate Tab 650 mg PO BID@0530,1730 02/27/23 02/27/23 History HYDROcodone/APAP 5-325MG [[place] 1 - 2 tab PO Q6HR PRN #32 tab 03/01/23 Rx 5-325] Sennosides [Senokot] 2 tab PO DAILY PRN #60 tablet 03/01/23 Rx Allergies Allergy/AdvReac Type Severity Reaction Status Date / Time codeine Allergy Rash/Hives Verified 02/27/23 22:40 Penicillins Allergy Rash/Hives Verified 02/27/23 22:40 on feet Sulfa (Sulfonamide Allergy Rash/Hives Verified 02/27/23 22:40 Antibiotics) ibuprofen [From Motrin] AdvReac Nausea & Verified 02/27/23 22:40 Vomiting Surgical - Exam Vital Signs Temp Pulse Resp BP Pulse Ox 97.8 F 127 H 16 98/47 92 L 02/27/23 21:12 02/27/23 21:12 02/27/23 21:12 02/27/23 21:12 02/27/23 21:12 Results - Labs 03/01/23 05:42 03/01/23 05:42 Abnormal Lab Results - Last 24 Hours (Table) 02/28/23 03/01/23 03/01/23 Range/Units 08:14 05:42 05:42 WBC 23.23 H (4.50-10.00) X 10*3/uL RBC 3.28 L (4.10-5.20) X 10*6/uL Hgb 10.0 L (12.0-15.0) g/dL Hct 32.1 L (37.2-46.3) % MCV 97.9 H (80.0-97.0) FL MCHC 31.2 L (32.0-37.0) g/dL RDW 16.4 H (11.5-14.5) % Immature Gran # 0.18 H (0.00-0.04) X 10*3/uL Neutrophils # 20.11 H (1.80-7.70) X 10*3/uL Monocytes # 1.19 H (0.20-1.00) X 10*3/uL Glucose 62 L (70-110) mg/dL Calcium 8.2 L (8.7-10.3) mg/dL GGT 663 H (0-38) U/L Alkaline Phosphatase 818 H (41-126) U/L Total Protein 4.4 L (6.2-8.2) g/dL Albumin 2.2 L (3.8-4.9) g/dL Albumin/Globulin Ratio 1.00 L (1.60-3.17) Ratio Diabetes panel 03/01/23 Range/Units 05:42 Sodium 137 (135-145) mmol/L Potassium 4.7 (3.5-5.5) mmol/L Chloride 103 (96-109) mmol/L Carbon Dioxide 25.4 (21.6-31.8) mmol/L BUN 19.8 (9.0-27.0) mg/dL Creatinine 1.0 (0.6-1.5) mg/dL Glucose 62 L (70-110) mg/dL Calcium 8.2 L (8.7-10.3) mg/dL AST 29 (13-35) U/L ALT 19 (8-44) U/L Alkaline Phosphatase 818 H (41-126) U/L Total Protein 4.4 L (6.2-8.2) g/dL Albumin 2.2 L (3.8-4.9) g/dL Calcium panel 03/01/23 Range/Units 05:42 Calcium 8.2 L (8.7-10.3) mg/dL Albumin 2.2 L (3.8-4.9) g/dL Pituitary panel 03/01/23 Range/Units 05:42 Sodium 137 (135-145) mmol/L Potassium 4.7 (3.5-5.5) mmol/L Chloride 103 (96-109) mmol/L Carbon Dioxide 25.4 (21.6-31.8) mmol/L BUN 19.8 (9.0-27.0) mg/dL Creatinine 1.0 (0.6-1.5) mg/dL Glucose 62 L (70-110) mg/dL Calcium 8.2 L (8.7-10.3) mg/dL Adrenal panel 03/01/23 Range/Units 05:42 Sodium 137 (135-145) mmol/L Potassium 4.7 (3.5-5.5) mmol/L Chloride 103 (96-109) mmol/L Carbon Dioxide 25.4 (21.6-31.8) mmol/L BUN 19.8 (9.0-27.0) mg/dL Creatinine 1.0 (0.6-1.5) mg/dL Glucose 62 L (70-110) mg/dL Calcium 8.2 L (8.7-10.3) mg/dL Total Bilirubin 0.8 (0.3-1.2) mg/dL AST 29 (13-35) U/L ALT 19 (8-44) U/L Alkaline Phosphatase 818 H (41-126) U/L Total Protein 4.4 L (6.2-8.2) g/dL Albumin 2.2 L (3.8-4.9) g/dL
[2023-03-01] MEDS: MORPHINE SULFATE 4 MG/ML SYRINGE IV PRN (14:39)
[2023-03-01] MEDS ORDERED: metroNIDAZOLE-NS PMX 500 MG in SALINE 1 100ML.BAG IVPB SCH (16:00)
[2023-03-01 16:47] LABS: Glucose,Whole Blood 84 mg/dL (70-110)
[2023-03-01] MEDS: ZIPRASIDONE 60 MG CAP PO SCH (17:27)
--- NOTE | 2023-03-01 19:38 | P.CONS ---
History of Present Illness - Reason for Consult Consult date: 03/01/23 rehab recommendations - Chief Complaint left hip fracture - History of Present Illness Ms Velia Azevedo is a 62 y/o right handed single female who lives alone in an apartment with 7 PARAG. Prior to admission, she ambulated independently, uses a walker at night for safety. She is independent with ADLs, She drives. Her daughter and son are able to assist on discharge, but not 10/10. She does have oxygen at home, usually uses 2 liters at home. Patient presented to the hospital with complaints of left hip pain. Patient had a fall at home while in her kitchen, onto her left side resulting in left dis placed femoral neck fracture. Imaging reviewed. She was evaluated by Ortho and on 02/28/23 she underwent left hemiarthroplasty anterior approach of the hip. She has been monitored for post operative pain and blood loss. PM&R consulted for rehab recommendations. Patient was evaluated by therapy, avery riojas min assist with bed mobility, transfers and gait 50 ft min assist RW, min assist with bathing and dressing. 03/01/23: Patient states she is ok, but having a hard time getting around. She has pain in the left leg, pain medications are helping. She reports there is no way she will be able to manage at home and is hoping that she can go to [facility]. She denies CP, SOB, and abdominal pain. She is wearing 2 liters Oxygen via NC, she has been up ambulating with assistance to the bathroom. LBM today, schneider pulled today and she has urinated since. Review of Systems reviewed, negative unless stated above in subjective Past Medical History Past Medical History: Asthma, COPD, GERD/Reflux, Hyperlipidemia, Liver Disease, Sleep Apnea/CPAP/BIPAP Additional Past Medical History / Comment(s): hx internal hemorrhoid, kidney CA with right nephrectomy, CPAP use, colitis, IBS History of Any Multi-Drug Resistant Organisms: None Reported Past Surgical History: Hysterectomy, Joint Replacement Additional Past Surgical History / Comment(s): right nephrectomy 04/11/22 Past Anesthesia/Blood Transfusion Reactions: No Reported Reaction Past Psychological History: Anxiety, Bipolar, Depression Smoking Status: Former smoker Past Alcohol Use History: None Reported Past Drug Use History: None Reported Medications and Allergies Home Medications Medication Instructions Recorded Confirmed Type Ziprasidone [Geodon] 40 mg PO DAILY@0530 02/07/14 02/27/23 History ALPRAZolam [Xanax] 0.5 mg PO DAILY@0530 11/07/17 02/27/23 History Albuterol Inhaler [Ventolin Hfa 2 puff INHALATION RT-Q6H PRN 11/07/17 02/27/23 History Inhaler] Mesalamine [Delzicol] 800 mg PO TID@0530,1200,1730 11/07/17 02/27/23 History Propranolol HCl 20 mg PO BID@0530,1730 11/07/17 02/27/23 History Albuterol Nebulized [Ventolin 2.5 mg INHALATION RT-QID PRN 07/03/22 02/27/23 History Nebulized] Atorvastatin Calcium [Lipitor] 40 mg PO HS@17307/03/22 02/27/23 History Levothyroxine Sodium [Synthroid] 112 mcg PO DAILY@0530 07/03/22 02/27/23 History Multivitamins, Thera [Multivitamin 1 tab PO DAILY@0530 07/03/22 02/27/23 History (formulary)] Ziprasidone [Geodon] 60 mg PO HS@17307/03/22 02/27/23 History buPROPion HCL [Wellbutrin SR] 200 mg PO BID@0530,17307/03/22 02/27/23 History Midodrine [ProAmatine] 10 mg PO AC-TID #120 tab 07/07/22 02/27/23 Rx Cyanocobalamin (Vitamin B-12) 1,000 mcg PO BID@0530,1730 01/15/23 02/27/23 History [Vitamin B-12] Dicyclomine [Bentyl] 20 mg PO TID PRN 01/15/23 02/27/23 History Fluticasone/Umeclidin/Vilanter 1 puff INHALATION RT-DAILY 01/15/23 02/27/23 History [Trelegy Ellipta 100-62.5-25] HYDROcodone/APAP 5-325MG [Megargel 1 tab PO Q6HR PRN 3 Days #12 tab 02/18/23 02/27/23 Rx 5-325] Magnesium Oxide [Mag-Ox] 800 mg PO BID@0530,1730 02/27/23 02/27/23 History Pantoprazole [Protonix] 40 mg PO BID@0530,1730 02/27/23 02/27/23 History Sodium Bicarbonate Tab 650 mg PO BID@0530,1730 02/27/23 02/27/23 History HYDROcodone/APAP 5-325MG [Megargel 1 - 2 tab PO Q6HR PRN #32 tab 03/01/23 Rx 5-325] Sennosides [Senokot] 2 tab PO DAILY PRN #60 tablet 03/01/23 Rx Allergies Allergy/AdvReac Type Severity Reaction Status Date / Time codeine Allergy Rash/Hives Verified 02/27/23 22:40 Penicillins Allergy Rash/Hives Verified 02/27/23 22:40 on feet Sulfa (Sulfonamide Allergy Rash/Hives Verified 02/27/23 22:40 Antibiotics) ibuprofen [From Motrin] AdvReac Nausea & Verified 02/27/23 22:40 Vomiting Physical Exam Vitals: Vital Signs Temp Pulse Pulse Resp BP Pulse Ox 03/01/23 12:38 92 03/01/23 12:28 92 03/01/23 09:38 84 03/01/23 09:27 88 92 L 03/01/23 08:10 97.9 F 93 19 93/57 03/01/23 05:53 96/56 03/01/23 01:47 98.3 F 84 19 97/60 92 L 02/28/23 20:30 96 02/28/23 20:19 95 02/28/23 19:12 98.2 F 94 15 104/66 92 L 02/28/23 17:30 97 16 113/62 95 02/28/23 17:00 94 16 113/58 95 02/28/23 16:45 98 16 114/55 95 02/28/23 16:30 99 16 114/52 95 02/28/23 16:15 99 16 113/55 95 02/28/23 16:01 104 H 16 116/54 94 L 02/28/23 15:45 97 16 120/68 94 L 02/28/23 15:30 100 16 119/55 94 L 02/28/23 15:15 100 16 130/69 94 L 02/28/23 15:03 98.1 F 105 H 16 134/69 96 02/28/23 14:30 99 16 114/58 95 Intake and Output 02/28/23 03/01/23 03/01/23 22:59 06:59 14:59 Intake Total 0 880 Output Total 300 300 Balance -300 580 Intake: IV 0 Intake, IV Titration 880 Amount Sodium Chloride 0.9% 1, 780 000 ml @ 65 mls/hr IV . [id number] TEJ Rx#:[id number] ceFAZolin 2 gm In Sodium 100 Chloride 0.9% 50 ml @ 100 mls/hr IVPB Q8H TEJ Rx#: [id number] Output: Urine 300 300 Other: Voiding Method Indwelling Catheter Indwelling Catheter Weight 58.967 kg General: WDWN, female, appears older than stated age, sitting on the side of the bed, NAD Head: Normocephalic, atraumatic. Eyes: Symmetric Ears: Symmetric. Hearing within normal limits. Mouth: Clear. Neck: Supple. Cardiac: threat monitoring analyst on, Calves supple, non tender, slight trace left leg edema Lungs: Breathing comfortably on O2 via NC. Chest symmetric. Abdomen: Soft, nontender. Extremities: Arthritic changes consistent with age. Neurological: Alert and oriented x 4. Speech is clear and fluent without paraphasic errors Cranial nerves: CN II-XII grossly intact. Sensation: Intact and symmetrical limbs. Musculoskeletal: ROM WFL EXCEPT: decreased left hip flexion secondary to pain MMT UE Sh Abd EE EF FABD WE HG Right 5 5 5 5 Left 5 5 5 5 MMT LE HF KE DF EHL Right 4+ 5 5 5 Left 3 4 5 5 Skin: Skin intact where visible to head, neck, and bilateral upper and lower extremities EXCEPT: left hip incision with dressing, peripheral IV Psych: Calm, cooperative Results CBC & Chem 7: 03/01/23 05:42 03/01/23 05:42 Labs: Abnormal Lab Results - Last 24 Hours (Table) 02/28/23 03/01/23 03/01/23 Range/Units 08:14 05:42 05:42 WBC 23.23 H (4.50-10.00) X 10*3/uL RBC 3.28 L (4.10-5.20) X 10*6/uL Hgb 10.0 L (12.0-15.0) g/dL Hct 32.1 L (37.2-46.3) % MCV 97.9 H (80.0-97.0) FL MCHC 31.2 L (32.0-37.0) g/dL RDW 16.4 H (11.5-14.5) % Immature Gran # 0.18 H (0.00-0.04) X 10*3/uL Neutrophils # 20.11 H (1.80-7.70) X 10*3/uL Monocytes # 1.19 H (0.20-1.00) X 10*3/uL Glucose 62 L (70-110) mg/dL Calcium 8.2 L (8.7-10.3) mg/dL GGT 663 H (0-38) U/L Alkaline Phosphatase 818 H (41-126) U/L Total Protein 4.4 L (6.2-8.2) g/dL Albumin 2.2 L (3.8-4.9) g/dL Albumin/Globulin Ratio 1.00 L (1.60-3.17) Ratio Assessment and Plan Assessment: # Impaired gait and ADLs secondary to fall resulting in left displaced femoral neck fracture s/p anterior left hemiarthroplasty -PT/OT evaluations # Pain secondary to above -recommend weaning IV pain medications to oral # Cholelithiasis # Recent biliary stent # Bowel/ Bladder: Nursing to monitor and report concerns if any. -LBM 12/, urinating after schneider removed # Diet- Regular diet # Skin/wound: Skin/Wound care to follow as needed -incisional care # Pain Management: Tylenol Q 6 prn, Dilaudid prn, Morphine prn, Megargel 5/325 mg Q 4 prn, # DVT Prophylaxis: Lovenox # Comorbidities: renal cancer s/p right nephrectomy, liver dz, KATHERYN, COPD, GERD, asthma # Your medical dx and mgt Goals: Modified Independent mobility and ADLS both basic and advanced; increased functional mobility/strength; increased balance, safety, endurance. Improvement in medical issues through your care. Barriers: pain, hip precautions Discharge recommendation: Once medically cleared would recommend Rehab. will need insurance authorization for IPR, she was independent prior to admission and has good family support and is currently needing assistance. Patient seen and examined in coordination with Dr. Fountain via audio and visual telemedicine. Patient seen and examined in coordination with SHABANA Heard; agree with above.
[2023-03-01] MEDS: ATORVASTATIN 40 MG TAB PO SCH (20:23)
[2023-03-01] MEDS: traMADol 50 MG TAB PO PRN (20:24)
[2023-03-01] MEDS: SENNOSIDES-DOCUSATE SODIUM 1 EACH TAB PO SCH (20:26)
[2023-03-01 23:44] LABS: Glucose,Whole Blood 166 mg/dL (70-110)
[2023-03-02 02:56] LABS: Glucose,Whole Blood 91 mg/dL (70-110)
[2023-03-02] MEDS: traMADol 50 MG TAB PO PRN (04:22)
[2023-03-02 05:02] LABS: Glucose,Whole Blood 97 mg/dL (70-110)
[2023-03-02] MEDS: SODIUM CHLORIDE 0.9% 1,000 ML IV SCH ×3 (05:10→17:34)
[2023-03-02] MEDS: ALPRAZolam 0.5 MG TAB PO SCH (05:37)
[2023-03-02] MEDS: SODIUM BICARBONATE TAB 650 MG TAB PO SCH ×2 (05:37→17:32)
[2023-03-02] MEDS: BALSALAZIDE DISODIUM 750 MG CAPSULE PO SCH ×3 (05:55→17:32)
[2023-03-02] MEDS: buPROPion SR 100 MG TABLET.ER PO SCH ×2 (05:55→17:32)
[2023-03-02] MEDS: ZIPRASIDONE 40 MG CAP PO SCH (05:55)
[2023-03-02] MEDS: LEVOTHYROXINE 112 MCG TAB PO SCH (06:28)
[2023-03-02] MEDS: FAMOTIDINE 20 MG TAB PO SCH (08:58)
[2023-03-02] MEDS: PANTOPRAZOLE 40 MG TABLET PO SCH ×2 (08:58→17:32)
[2023-03-02] MEDS: ENOXAPARIN 40 MG/0.4 ML SYRINGE SQ SCH (08:58)
[2023-03-02] MEDS: MIDODRINE 5 MG TAB PO SCH ×3 (08:58→17:32)
[2023-03-02] MEDS: metroNIDAZOLE-NS PMX 500 MG in SALINE 1 100ML.BAG IVPB SCH ×3 (09:03→23:38)
[2023-03-02] MEDS: SYMBICORT 80-4.5 MCG INHALER INHALATION SCH ×2 (09:09→20:42)
[2023-03-02] MEDS: IPRATROPIUM 0.5 MG/2.5 ML NEBU INHALATION SCH ×4 (09:09→20:42)
[2023-03-02] MEDS: PROPRANOLOL 20 MG TAB PO SCH ×2 (09:59→20:44)
[2023-03-02 11:22] LABS: ALT 13 U/L (8-44); AST 27 U/L (13-35); Albumin 2.1 g/dL (3.8-4.9); Albumin/Globulin Ratio 0.95 Ratio (1.60-3.17); Alkaline Phosphatase 731 U/L (41-126); BUN/Creat Ratio 18.36 Ratio (12.00-20.00); Blood Urea Nitrogen 20.2 mg/dL (9.0-27.0); Calcium 8.1 mg/dL (8.7-10.3); Carbon Dioxide 26.5 mmol/L (21.6-31.8); Chloride 100 mmol/L (96-109); Globulin 2.2 g/dL (1.6-3.3); Glucose 92 mg/dL (70-110); Potassium 3.8 mmol/L (3.5-5.5); Sodium 136 mmol/L (135-145); Total Bilirubin 0.7 mg/dL (0.3-1.2); Total Protein 4.3 g/dL (6.2-8.2)
[2023-03-02 11:25] LABS: Glucose,Whole Blood 102 mg/dL (70-110)
[2023-03-02] MEDS ORDERED: ZINC OXIDE PASTE (Z-GUARD) 1 APPLIC APPLIC TOPICAL PRN (12:35)
--- NOTE | 2023-03-02 14:36 | P.PN ---
Subjective Progress Note Date: 03/02/23 This is a 62-year-old female who is status post left hip hemiarthroplasty with direct anterior approach. This is postoperative day #2 and patient is seen and evaluated at bedside today. Patient denies any new complaints today. Objective - Vital Signs Vital signs: Vital Signs Temp 99.0 F 03/02/23 12:57 Pulse 100 03/02/23 12:57 Resp 19 03/02/23 12:57 BP 114/72 03/02/23 12:57 Pulse Ox 95 03/02/23 12:57 FiO2 Intake & Output 03/01/23 03/02/23 03/02/23 18:59 06:59 18:59 Output Total 300 Balance -300 Output: Urine 300 Other: Voiding Method Indwelling Catheter Bedside Commode Bedside Commode # Voids 1 1 1 # Bowel Movements 1 1 1 - Exam Vital signs are stable. Patient is in no acute distress and is alert and oriented 3. Calf is soft and nontender to palpation. Dressing is clean, dry, and intact. Patient has full foot and ankle motion without pain or difficulty. Sensation intact. Neurovascular status and circulatory status are intact. - Labs CBC & Chem 7: 03/01/23 05:42 03/02/23 06:35 Labs: Abnormal Lab Results - Last 24 Hours (Table) 03/01/23 03/02/23 Range/Units 23:42 06:35 Est GFR (CKD-EPI) 56 L (>=60) POC Glucose (mg/dL) 166 H (70-110) mg/dL Calcium 8.1 L (8.7-10.3) mg/dL Alkaline Phosphatase 731 H (41-126) U/L Total Protein 4.3 L (6.2-8.2) g/dL Albumin 2.1 L (3.8-4.9) g/dL Albumin/Globulin Ratio 0.95 L (1.60-3.17) Ratio Assessment and Plan Assessment: Left femoral neck fracture. Status post left hip hemiarthroplasty with direct anterior approach. (1) Fall Current Visit: Yes Status: Acute Code(s): W19.XXXA - UNSPECIFIED FALL, INITIAL ENCOUNTER SNOMED Code(s): 9665306 (2) Left displaced femoral neck fracture Current Visit: Yes Status: Acute Code(s): S72.002A - FRACTURE OF UNSP PART OF NECK OF LEFT FEMUR, INIT SNOMED Code(s): 0262450 Plan: Continue routine postop care and pain control. Continue anticoagulation per internal medicine. Weightbearing as tolerated with a walker. Leave dressing in place for 7 days. Appreciate input from internal medicine. Anticipate discharge to ECF in the next 24-48 hours.
--- NOTE | 2023-03-02 15:06 | P.PN ---
Subjective Progress Note Date: 03/02/23 Subjective: Seen and examined at bedside. No acute events overnight. Denies any signi ficant pain. Wells catheter discontinued Pertinent positives and negatives as discussed above, a complete review of systems was performed and all other systems are negative. Vitals Signs Reviewed. General: nontoxic, no distress, appears at stated age Derm: warm, dry, dressing clean, dry, intact Head: atraumatic, normocephalic, symmetric Eyes: EOMI, no lid lag, anicteric sclera Mouth: no lip lesion, mucus membranes moist Cardiovascular: S1S2 reg, no murmur Lungs: CTA bilateral, no rhonchi, no rales , no accessory muscle use Abdominal: soft, nontender to palpation, no guarding, no appreciable organomegaly Ext: no gross muscle atrophy, no edema, no contractures Neuro: CN II-XI grossly intact, no focal neuro deficits Psych: Alert, oriented, appropriate affect Data Reviewed Today: Pertinent Labs: CBC pending, will be reviewed when available, potassium 3.8, creatinine 1.1, glucose range between 92-102, ALP 731 Imaging: No new imaging Assessment and Plan: Leukocytosis Acute on chronic cholecystitis -ALP down trending -Right upper quadrant ultrasound consistent with gallbladder wall thickening -Surgery note reviewed from 03/01, started on IV antibiotics, currently on IV ceftriaxone 1 g every 24 hours, IV Flagyl 500 mg -She did have diagnosis of cholelithiasis without acute cholecystitis at the end of December, and had biliary stent placed, needs outpatient removal -Patient remains asymptomatic -Repeat CBC and CMP tomorrow -She could potentially be switched over to oral antibiotics and be discharged to rehab facility and consider outpatient cholecystectomy and biliary stent removal COPD with chronic respiratory failure on chronic home oxygen nightly 2 L, no exacerbation Obstructive sleep apnea -Continue home bronchodilators History of renal cancer status post right nephrectomy Acute urinary retention, resolved Left femoral neck fracture secondary to mechanical accidental fall at home Acute blood loss anemia, anticipated outcome of surgery -Management per orthopedic team for pain control and DVT prophylaxis type of surgery -Patient on oral [place] as needed, IV Dilaudid as needed, monitor for respiratory depression -on Lovenox 40 daily Chronic: Hypothyroidism Dyslipidemia Depression Psychotic disorder -Medications reviewed and reconciled Patient will likely be optimized for discharge by tomorrow Thank you for allowing us to participate in the care of this pleasant patient. Do not hesitate to contact us with questions. Someone can be reached from the [facility] hospitalist group all hours of the day at [phone] or via perfect serve. Objective - Vital Signs Vital signs: Vital Signs Temp 99.0 F 03/02/23 12:57 Pulse 100 03/02/23 12:57 Resp 19 03/02/23 12:57 BP 114/72 03/02/23 12:57 Pulse Ox 95 03/02/23 12:57 FiO2 Intake & Output 03/01/23 03/02/23 03/02/23 18:59 06:59 18:59 Output Total 300 Balance -300 Output: Urine 300 Other: Voiding Method Indwelling Catheter Bedside Commode Bedside Commode # Voids 1 1 1 # Bowel Movements 1 1 1 - Labs CBC & Chem 7: 03/01/23 05:42 03/02/23 06:35 Labs: Abnormal Lab Results - Last 24 Hours (Table) 03/01/23 03/02/23 Range/Units 23:42 06:35 Est GFR (CKD-EPI) 56 L (>=60) POC Glucose (mg/dL) 166 H (70-110) mg/dL Calcium 8.1 L (8.7-10.3) mg/dL Alkaline Phosphatase 731 H (41-126) U/L Total Protein 4.3 L (6.2-8.2) g/dL Albumin 2.1 L (3.8-4.9) g/dL Albumin/Globulin Ratio 0.95 L (1.60-3.17) Ratio
--- NOTE | 2023-03-02 15:24 | P.PN ---
Subjective Progress Note Date: 03/02/23 CHIEF COMPLAINT: Fall with left hip fracture HISTORY OF PRESENT ILLNESS: Patient denies any abdominal pain. Denies any nausea or vomiting. She is tolerating diet. Afebrile. CBC is pending total bili 0.7 AST 27 ALT 13 and alk phos trending down to 731 PHYSICAL EXAM: VITAL SIGNS: Reviewed. GENERAL: Well-developed in no acute distress. HEENT: No sclera icterus. Extraocular movements grossly intact. Moist buccal mucosa. Head is atraumatic, normocephalic. ABDOMEN: Soft. Nondistended. Nontender. NEUROLOGIC: Alert and oriented. Cranial nerves II through XII grossly intact. ASSESSMENT: 1. Acute on chronic Cholecystitis. Ultrasound showing thickened gallbladder wall with cholelithiasis 2. History of recent biliary stent placement at [facility] 3. Fall with left hip fracture orthopedic surgery PLAN: -Continue antibiotics. Agree with adding Flagyl -Repeat CBC in a.m. -Recommend that patient follows up with GI service for biliary stent removal in March as scheduled -Continue regular diet Physician Biodiesel Technology Manager note has been reviewed by physician. Signing provider agrees with the documented findings, assessment, and plan of care. Objective - Vital Signs Vital signs: Vital Signs Temp 98.5 F 03/02/23 07:01 Pulse 84 03/02/23 12:21 Resp 19 03/02/23 07:01 BP 100/67 03/02/23 07:01 Pulse Ox 95 03/02/23 07:01 FiO2 Intake & Output 03/01/23 03/02/23 03/02/23 18:59 06:59 18:59 Output Total 300 Balance -300 Output: Urine 300 Other: Voiding Method Indwelling Catheter Bedside Commode Bedside Commode # Voids 1 1 1 # Bowel Movements 1 1 1 - Labs CBC & Chem 7: 03/01/23 05:42 03/02/23 06:35 Labs: Abnormal Lab Results - Last 24 Hours (Table) 03/01/23 03/02/23 Range/Units 23:42 06:35 Est GFR (CKD-EPI) 56 L (>=60) POC Glucose (mg/dL) 166 H (70-110) mg/dL Calcium 8.1 L (8.7-10.3) mg/dL Alkaline Phosphatase 731 H (41-126) U/L Total Protein 4.3 L (6.2-8.2) g/dL Albumin 2.1 L (3.8-4.9) g/dL Albumin/Globulin Ratio 0.95 L (1.60-3.17) Ratio
[2023-03-02 16:14] LABS: Anisocytosis Slight; Basophils % (A) 0 %; Eosinophils # (A) 0.1 k/uL (0-0.7); Eosinophils % (A) 0 %; HCT 32.8 % (34.0-46.0); HGB 10.2 gm/dL (11.4-16.0); Hypochromasia Moderate; Lymphocytes # (A) 0.8 k/uL (1.0-4.8); Lymphocytes % (A) 3 %; MCH 30.8 pg (25.0-35.0); MCHC 31.2 g/dL (31.0-37.0); MCV 98.7 fL (80.0-100.0); Macrocytosis Slight; Mean Platelet Volume 9.4; Monocytes # (A) 0.8 k/uL (0-1.0); Monocytes % (A) 3 %; Neutrophils # (A) 23.9 k/uL (1.3-7.7); Neutrophils % (A) 93 %; Platelet Count 421 k/uL (150-450); RBC 3.33 m/uL (3.80-5.40); RDW 16.2 % (11.5-15.5); WBC 25.7 k/uL (3.8-10.6)
[2023-03-02] MEDS: ZIPRASIDONE 60 MG CAP PO SCH (17:33)
[2023-03-02 17:38] LABS: Glucose,Whole Blood 129 mg/dL (70-110)
[2023-03-02] MEDS: ATORVASTATIN 40 MG TAB PO SCH (20:44)
[2023-03-02] MEDS: SENNOSIDES-DOCUSATE SODIUM 1 EACH TAB PO SCH (20:44)
[2023-03-02 23:01] LABS: Glucose,Whole Blood 89 mg/dL (70-110)
[2023-03-03] MEDS: BALSALAZIDE DISODIUM 750 MG CAPSULE PO SCH ×3 (05:06→17:21)
[2023-03-03] MEDS: ZIPRASIDONE 40 MG CAP PO SCH (05:06)
[2023-03-03] MEDS: buPROPion SR 100 MG TABLET.ER PO SCH ×2 (05:06→17:21)
[2023-03-03] MEDS: SODIUM CHLORIDE 0.9% 1,000 ML IV SCH ×4 (05:07→21:13)
[2023-03-03] MEDS: SODIUM BICARBONATE TAB 650 MG TAB PO SCH ×2 (05:08→17:28)
[2023-03-03] MEDS: ALPRAZolam 0.5 MG TAB PO SCH ×2 (05:08→09:22)
[2023-03-03 06:05] LABS: Glucose,Whole Blood 85 mg/dL (70-110)
[2023-03-03] MEDS: LEVOTHYROXINE 112 MCG TAB PO SCH (06:45)
[2023-03-03 07:09] LABS: Anisocytosis Slight; Basophils % (A) 0 %; Eosinophils # (A) 0.2 k/uL (0-0.7); Eosinophils % (A) 1 %; HCT 30.9 % (34.0-46.0); HGB 9.9 gm/dL (11.4-16.0); Hypochromasia Slight; Lymphocytes # (A) 1.3 k/uL (1.0-4.8); Lymphocytes % (A) 6 %; MCH 31.2 pg (25.0-35.0); MCHC 31.9 g/dL (31.0-37.0); MCV 97.9 fL (80.0-100.0); Macrocytosis Slight; Mean Platelet Volume 8.1; Monocytes # (A) 0.7 k/uL (0-1.0); Monocytes % (A) 3 %; Neutrophils # (A) 19.4 k/uL (1.3-7.7); Neutrophils % (A) 89 %; Platelet Count 340 k/uL (150-450); RBC 3.16 m/uL (3.80-5.40); RDW 16.2 % (11.5-15.5); WBC 21.7 k/uL (3.8-10.6)
[2023-03-03 07:19] LABS: ALT 11 U/L (4-34); AST 37 U/L (14-36); African American GFR (CKD) 70 (>60 ml/min/1.73 sqM); Albumin/Globulin Ratio 0.8; Anion Gap 9 mmol/L; Blood Urea Nitrogen 22 mg/dL (7-17); Calcium 7.8 mg/dL (8.4-10.2); Carbon Dioxide 26 mmol/L (22-30); Chloride 102 mmol/L (98-107); Globulin 2.4 g/dL; Glucose 71 mg/dL (74-99); Magnesium 1.6 mg/dL (1.6-2.3); Non-African American GFR(CKD) 61 (>60 ml/min/1.73 sqM); Potassium 3.2 mmol/L (3.5-5.1); Sodium 137 mmol/L (137-145); Total Bilirubin 0.7 mg/dL (0.2-1.3); Total Protein 4.4 g/dL (6.3-8.2)
[2023-03-03 08:03] LABS: Alkaline Phosphatase 868 U/L (38-126)
[2023-03-03] MEDS ORDERED: POTASSIUM CHLORIDE ER 20 MEQ TAB.ER PO STA (08:28)
[2023-03-03] MEDS: IPRATROPIUM 0.5 MG/2.5 ML NEBU INHALATION SCH ×4 (08:42→20:13)
[2023-03-03] MEDS: SYMBICORT 80-4.5 MCG INHALER INHALATION SCH ×2 (08:42→20:13)
--- NOTE | 2023-03-03 08:52 | P.PN ---
Subjective Progress Note Date: 03/03/23 Principal diagnosis: Femoral neck fracture left hip. Status post hemiarthroplasty with direct anterior approach left hip. C. difficile infection This is a 62-year-old female who is status post hemiarthroplasty of the left hip with direct anterior approach secondary to a femoral neck fracture. She is stable from an orthopedic standpoint. She was found to have C. difficile on t esting last evening. Otherwise no new complaints or concerns today. She states that her hip is feeling better. Vital signs are stable. Objective - Vital Signs Vital signs: Vital Signs Temp 97.6 F 03/03/23 07:58 Pulse 98 03/03/23 08:42 Resp 21 03/03/23 07:58 BP 96/58 03/03/23 07:58 Pulse Ox 96 03/03/23 08:45 FiO2 Intake & Output 03/02/23 03/03/23 03/03/23 18:59 06:59 18:59 Output Total 6 Balance -6 Output: Stool 6 Other: Voiding Method Bedside Commode # Voids 1 1 # Bowel Movements 1 2 - Exam This is a pleasant 62-year-old female in no acute distress. She is alert and oriented 3. Exam of the left hip reveals that her dressing is clean, dry and intact. She has full foot and ankle motion without difficulty or pain. Neurovascular status to the lower extremities is intact. - Labs CBC & Chem 7: 03/03/23 06:09 03/03/23 06:09 Labs: Abnormal Lab Results - Last 24 Hours (Table) 03/02/23 03/02/23 03/02/23 Range/Units 06:35 10:00 15:12 WBC 25.7 H (3.8-10.6) k/uL RBC 3.33 L (3.80-5.40) m/uL Hgb 10.2 L (11.4-16.0) gm/dL Hct 32.8 L (34.0-46.0) % RDW 16.2 H (11.5-15.5) % Neutrophils # 23.9 H (1.3-7.7) k/uL Lymphocytes # 0.8 L (1.0-4.8) k/uL Potassium (3.5-5.1) mmol/L BUN (7-17) mg/dL Est GFR (CKD-EPI) 56 L (>=60) Glucose (74-99) mg/dL POC Glucose (mg/dL) (70-110) mg/dL Calcium 8.1 L (8.7-10.3) mg/dL AST (14-36) U/L Alkaline Phosphatase 731 H (41-126) U/L Total Protein 4.3 L (6.2-8.2) g/dL Albumin 2.1 L (3.8-4.9) g/dL Albumin/Globulin Ratio 0.95 L (1.60-3.17) Ratio C. difficile (EIA) Intrp Positive A (Negative) 03/02/23 03/03/23 03/03/23 Range/Units 17:37 06:09 06:09 WBC 21.7 H (3.8-10.6) k/uL RBC 3.16 L (3.80-5.40) m/uL Hgb 9.9 L (11.4-16.0) gm/dL Hct 30.9 L (34.0-46.0) % RDW 16.2 H (11.5-15.5) % Neutrophils # 19.4 H (1.3-7.7) k/uL Lymphocytes # (1.0-4.8) k/uL Potassium 3.2 L (3.5-5.1) mmol/L BUN 22 H (7-17) mg/dL Est GFR (CKD-EPI) (>=60) Glucose 71 L (74-99) mg/dL POC Glucose (mg/dL) 129 H (70-110) mg/dL Calcium 7.8 L (8.7-10.3) mg/dL AST 37 H (14-36) U/L Alkaline Phosphatase 868 H (41-126) U/L Total Protein 4.4 L (6.2-8.2) g/dL Albumin 2.0 L (3.8-4.9) g/dL Albumin/Globulin Ratio (1.60-3.17) Ratio C. difficile (EIA) Intrp (Negative) Assessment and Plan (1) Status post hip hemiarthroplasty Current Visit: Yes Status: Acute Code(s): Z96.649 - PRESENCE OF UNSPECIFIED ARTIFICIAL HIP JOINT SNOMED Code(s): 765537211 (2) C. difficile colitis Current Visit: Yes Status: Acute Code(s): A04.72 - ENTEROCOLITIS D/T CLOSTRIDIUM DIFFICILE, NOT SPCF RECUR SNOMED Code(s): 614296785 (3) Fall Current Visit: Yes Status: Acute Code(s): W19.XXXA - UNSPECIFIED FALL, INITIAL ENCOUNTER SNOMED Code(s): 3745223 (4) Left displaced femoral neck fracture Current Visit: Yes Status: Acute Code(s): S72.002A - FRACTURE OF UNSP PART OF NECK OF LEFT FEMUR, INIT SNOMED Code(s): 3371938 Plan: The clinical findings are discussed with the patient. We are planning discharge to inpatient rehab. She does have a C. difficile infection which may delay her discharge. From an orthopedic standpoint she is cleared to go to inpatient rehab.
[2023-03-03] MEDS: FAMOTIDINE 20 MG TAB PO SCH (09:21)
[2023-03-03] MEDS: PANTOPRAZOLE 40 MG TABLET PO SCH (09:22)
[2023-03-03] MEDS: MIDODRINE 5 MG TAB PO SCH ×3 (09:22→17:21)
[2023-03-03] MEDS: ENOXAPARIN 40 MG/0.4 ML SYRINGE SQ SCH (09:22)
[2023-03-03] MEDS: SENNOSIDES-DOCUSATE SODIUM 1 EACH TAB PO SCH (09:24)
[2023-03-03] MEDS: metroNIDAZOLE-NS PMX 500 MG in SALINE 1 100ML.BAG IVPB SCH ×3 (09:35→23:52)
[2023-03-03] MEDS: PROPRANOLOL 20 MG TAB PO SCH (09:37)
[2023-03-03] MEDS: traMADol 50 MG TAB PO PRN ×2 (10:40→21:11)
[2023-03-03 11:08] LABS: Glucose,Whole Blood 80 mg/dL (70-110)
[2023-03-03] MEDS: VANCOMYCIN ORAL SOLUTION 250 MG/5 ML BOTTLE PO SCH ×3 (13:23→21:13)
--- NOTE | 2023-03-03 13:32 | P.PN ---
Subjective Progress Note Date: 03/03/23 CHIEF COMPLAINT: Fall with left hip fracture HISTORY OF PRESENT ILLNESS: Patient denies any abdominal pain. Denies any nausea or vomiting. She is tolerating diet. Afebrile. WBC down from 25 to 21 hgb 9.9 platelets 340 total bilirubin 0.7 AST slightly up at 37 ALT 11 alk phos 868. Patient noted to have a positive C. diff colitis PHYSICAL EXAM: VITAL SIGNS: Reviewed. GENERAL: Well-developed in no acute distress. ABDOMEN: Soft. Nondistended. Nontender. NEUROLOGIC: Alert and oriented. Cranial nerves II through XII grossly intact. ASSESSMENT: 1. Cholecystitis. Ultrasound showing thickened gallbladder wall with cholelithiasis 2. History of recent biliary stent placement at [facility] 3. Fall with left hip fracture orthopedic surgery PLAN: -Discontinue the Rocephin due to patient having active C. diff colitis -Repeat CBC in a.m. -Recommend that patient follows up with GI service for biliary stent removal in March as scheduled -Continue regular diet -C. diff management per medicine service they did add oral vancomycin Physician Transmission Engineer note has been reviewed by physician. Signing provider agrees with the documented findings, assessment, and plan of care. Objective - Vital Signs Vital signs: Vital Signs Temp 97.6 F 03/03/23 07:58 Pulse 96 03/03/23 12:50 Resp 21 03/03/23 07:58 BP 96/58 03/03/23 07:58 Pulse Ox 96 03/03/23 08:45 FiO2 Intake & Output 03/02/23 03/03/23 03/03/23 18:59 06:59 18:59 Output Total 6 Balance -6 Output: Stool 6 Other: Voiding Method Bedside Commode Bedside Commode # Voids 1 1 # Bowel Movements 1 1 - Labs CBC & Chem 7: 03/03/23 06:09 03/03/23 06:09 Labs: Abnormal Lab Results - Last 24 Hours (Table) 03/02/23 03/02/23 03/02/23 Range/Units 10:00 15:12 17:37 WBC 25.7 H (3.8-10.6) k/uL RBC 3.33 L (3.80-5.40) m/uL Hgb 10.2 L (11.4-16.0) gm/dL Hct 32.8 L (34.0-46.0) % RDW 16.2 H (11.5-15.5) % Neutrophils # 23.9 H (1.3-7.7) k/uL Lymphocytes # 0.8 L (1.0-4.8) k/uL Potassium (3.5-5.1) mmol/L BUN (7-17) mg/dL Glucose (74-99) mg/dL POC Glucose (mg/dL) 129 H (70-110) mg/dL Calcium (8.4-10.2) mg/dL AST (14-36) U/L Alkaline Phosphatase (38-126) U/L Total Protein (6.3-8.2) g/dL Albumin (3.5-5.0) g/dL C. difficile (EIA) Intrp Positive A (Negative) 03/03/23 03/03/23 Range/Units 06:09 06:09 WBC 21.7 H (3.8-10.6) k/uL RBC 3.16 L (3.80-5.40) m/uL Hgb 9.9 L (11.4-16.0) gm/dL Hct 30.9 L (34.0-46.0) % RDW 16.2 H (11.5-15.5) % Neutrophils # 19.4 H (1.3-7.7) k/uL Lymphocytes # (1.0-4.8) k/uL Potassium 3.2 L (3.5-5.1) mmol/L BUN 22 H (7-17) mg/dL Glucose 71 L (74-99) mg/dL POC Glucose (mg/dL) (70-110) mg/dL Calcium 7.8 L (8.4-10.2) mg/dL AST 37 H (14-36) U/L Alkaline Phosphatase 868 H (38-126) U/L Total Protein 4.4 L (6.3-8.2) g/dL Albumin 2.0 L (3.5-5.0) g/dL C. difficile (EIA) Intrp (Negative)
--- NOTE | 2023-03-03 14:50 | P.PN ---
Subjective Progress Note Date: 03/03/23 Subjective: Seen and examined at bedside. Having multiple loose bowel movements. Has been going on for almost 7 days prior to her admission. Wells catheter discontinued Pertinent positives and negatives as discussed above, a complete review of systems was performed and all other systems are negative. Vitals Signs Reviewed. General: nontoxic, no distress, appears at stated age Derm: warm, dry, dressing clean, dry, intact Head: atraumatic, normocephalic, symmetric Eyes: EOMI, no lid lag, anicteric sclera Mouth: no lip lesion, mucus membranes moist Cardiovascular: S1S2 reg, no murmur Lungs: CTA bilateral, no rhonchi, no rales , no accessory muscle use, supplemental oxygen Abdominal: soft, nontender to palpation, no guarding, no appreciable organomegaly Ext: no gross muscle atrophy, no edema, no contractures Neuro: CN II-XI grossly intact, no focal neuro deficits Psych: Alert, oriented, appropriate affect Data Reviewed Today: Pertinent Labs: WBC 21.7, hemoglobin 9.9, potassium 3.2, creatinine 1, ALP is 68, C. diff positive Imaging: No new imaging Assessment and Plan: Patient is critically ill, prognosis guarded Severe C. diff infection, present on admission Leukocytosis Acute on chronic cholecystitis -Started on oral vancomycin 500 4 times a day -Right upper quadrant ultrasound consistent with gallbladder wall thickening no significant abdominal pain -Surgery note reviewed, continue on IV ceftriaxone 1 g every 24 hours, IV Flagyl 500 mg -She did have diagnosis of cholelithiasis without acute cholecystitis at the end of December, and had biliary stent placed, needs outpatient removal -Repeat CBC and CMP tomorrow -Hold pantoprazole as he can increase the risk for worsening C. diff infection, already on famotidine. -Hold propanolol COPD with chronic respiratory failure on chronic home oxygen nightly 2 L, no exacerbation Obstructive sleep apnea -Continue home bronchodilators History of renal cancer status post right nephrectomy Acute urinary retention, resolved Left femoral neck fracture secondary to mechanical accidental fall at home Acute blood loss anemia, anticipated outcome of surgery -Management per orthopedic team for pain control and DVT prophylaxis type of surgery -Patient on oral [place] as needed, IV Dilaudid as needed, monitor for respiratory depression -on Lovenox 40 daily Chronic: Hypothyroidism Dyslipidemia Depression Psychotic disorder -Medications reviewed and reconciled Patient has a bed available for at inpatient rehab. However not medically optimized at the moment due to significant diarrhea. Possible discharge on Monday. Thank you for allowing us to participate in the care of this pleasant patient. Do not hesitate to contact us with questions. Someone can be reached from the [facility] hospitalist group all hours of the day at [phone] or via perfect serve. Objective - Vital Signs Vital signs: Vital Signs Temp 97.8 F 03/03/23 12:44 Pulse 96 03/03/23 12:50 Resp 19 03/03/23 12:44 BP 95/58 03/03/23 12:44 Pulse Ox 100 03/03/23 12:44 FiO2 Intake & Output 03/02/23 03/03/23 03/03/23 18:59 06:59 18:59 Output Total 6 Balance -6 Output: Stool 6 Other: Voiding Method Bedside Commode Bedside Commode # Voids 1 1 # Bowel Movements 1 1 - Labs CBC & Chem 7: 03/03/23 06:09 03/03/23 06:09 Labs: Abnormal Lab Results - Last 24 Hours (Table) 03/02/23 03/02/23 03/02/23 Range/Units 10:00 15:12 17:37 WBC 25.7 H (3.8-10.6) k/uL RBC 3.33 L (3.80-5.40) m/uL Hgb 10.2 L (11.4-16.0) gm/dL Hct 32.8 L (34.0-46.0) % RDW 16.2 H (11.5-15.5) % Neutrophils # 23.9 H (1.3-7.7) k/uL Lymphocytes # 0.8 L (1.0-4.8) k/uL Potassium (3.5-5.1) mmol/L BUN (7-17) mg/dL Glucose (74-99) mg/dL POC Glucose (mg/dL) 129 H (70-110) mg/dL Calcium (8.4-10.2) mg/dL AST (14-36) U/L Alkaline Phosphatase (38-126) U/L Total Protein (6.3-8.2) g/dL Albumin (3.5-5.0) g/dL C. difficile (EIA) Intrp Positive A (Negative) 03/03/23 03/03/23 Range/Units 06:09 06:09 WBC 21.7 H (3.8-10.6) k/uL RBC 3.16 L (3.80-5.40) m/uL Hgb 9.9 L (11.4-16.0) gm/dL Hct 30.9 L (34.0-46.0) % RDW 16.2 H (11.5-15.5) % Neutrophils # 19.4 H (1.3-7.7) k/uL Lymphocytes # (1.0-4.8) k/uL Potassium 3.2 L (3.5-5.1) mmol/L BUN 22 H (7-17) mg/dL Glucose 71 L (74-99) mg/dL POC Glucose (mg/dL) (70-110) mg/dL Calcium 7.8 L (8.4-10.2) mg/dL AST 37 H (14-36) U/L Alkaline Phosphatase 868 H (38-126) U/L Total Protein 4.4 L (6.3-8.2) g/dL Albumin 2.0 L (3.5-5.0) g/dL C. difficile (EIA) Intrp (Negative)
[2023-03-03 16:55] LABS: Glucose,Whole Blood 163 mg/dL (70-110)
[2023-03-03] MEDS: ZIPRASIDONE 60 MG CAP PO SCH (17:21)
[2023-03-03] MEDS: ATORVASTATIN 40 MG TAB PO SCH (21:11)
[2023-03-03] MEDS: ALPRAZolam 0.5 MG TAB PO PRN (21:12)
[2023-03-03 23:48] LABS: Glucose,Whole Blood 88 mg/dL (70-110)
[2023-03-04] MEDS: SODIUM BICARBONATE TAB 650 MG TAB PO SCH ×2 (05:18→18:09)
[2023-03-04] MEDS: BALSALAZIDE DISODIUM 750 MG CAPSULE PO SCH ×3 (05:19→18:09)
[2023-03-04] MEDS: traMADol 50 MG TAB PO PRN (05:19)
[2023-03-04] MEDS: buPROPion SR 100 MG TABLET.ER PO SCH ×2 (05:19→18:09)
[2023-03-04] MEDS: ZIPRASIDONE 40 MG CAP PO SCH (05:19)
[2023-03-04 05:28] LABS: Glucose,Whole Blood 111 mg/dL (70-110)
[2023-03-04 06:13] LABS: Anisocytosis Slight; Basophils % (A) 0 %; Eosinophils # (A) 0.3 k/uL (0-0.7); Eosinophils % (A) 3 %; HGB 9.2 gm/dL (11.4-16.0); Hypochromasia Marked; Lymphocytes # (A) 1.5 k/uL (1.0-4.8); Lymphocytes % (A) 12 %; MCH 30.5 pg (25.0-35.0); MCHC 30.8 g/dL (31.0-37.0); MCV 99.2 fL (80.0-100.0); Macrocytosis Slight; Mean Platelet Volume 8.7; Monocytes # (A) 0.5 k/uL (0-1.0); Monocytes % (A) 4 %; Neutrophils # (A) 10.4 k/uL (1.3-7.7); Neutrophils % (A) 81 %; Platelet Count 324 k/uL (150-450); RBC 3.02 m/uL (3.80-5.40); RDW 16.2 % (11.5-15.5); WBC 12.9 k/uL (3.8-10.6)
[2023-03-04] MEDS: LEVOTHYROXINE 112 MCG TAB PO SCH (06:14)
[2023-03-04 06:35] LABS: ALT 10 U/L (4-34); AST 33 U/L (14-36); African American GFR (CKD) 84 (>60 ml/min/1.73 sqM); Albumin 1.8 g/dL (3.5-5.0); Albumin/Globulin Ratio 0.8; Anion Gap 7 mmol/L; Blood Urea Nitrogen 21 mg/dL (7-17); Calcium 7.8 mg/dL (8.4-10.2); Carbon Dioxide 25 mmol/L (22-30); Chloride 108 mmol/L (98-107); Globulin 2.3 g/dL; Glucose 77 mg/dL (74-99); Magnesium 1.6 mg/dL (1.6-2.3); Non-African American GFR(CKD) 73 (>60 ml/min/1.73 sqM); Sodium 140 mmol/L (137-145); Total Bilirubin 0.6 mg/dL (0.2-1.3); Total Protein 4.1 g/dL (6.3-8.2)
[2023-03-04 06:44] LABS: Alkaline Phosphatase 829 U/L (38-126)
[2023-03-04] MEDS: SYMBICORT 80-4.5 MCG INHALER INHALATION SCH ×2 (07:56→18:15)
[2023-03-04] MEDS: IPRATROPIUM 0.5 MG/2.5 ML NEBU INHALATION SCH ×4 (07:56→18:15)
[2023-03-04] MEDS: ENOXAPARIN 40 MG/0.4 ML SYRINGE SQ SCH (07:56)
[2023-03-04] MEDS: FAMOTIDINE 20 MG TAB PO SCH (07:57)
[2023-03-04] MEDS: MIDODRINE 5 MG TAB PO SCH ×3 (07:57→18:09)
[2023-03-04] MEDS: metroNIDAZOLE-NS PMX 500 MG in SALINE 1 100ML.BAG IVPB SCH ×2 (07:57→16:28)
[2023-03-04] MEDS: VANCOMYCIN ORAL SOLUTION 250 MG/5 ML BOTTLE PO SCH ×4 (07:57→21:48)
[2023-03-04] MEDS: SODIUM CHLORIDE 0.9% 1,000 ML IV SCH ×3 (07:58→21:48)
--- NOTE | 2023-03-04 08:31 | P.PN ---
Subjective Mild pain per patient. Denies back pain. Per nursing the patient continues to have issues with C. diff. Objective - Vital Signs Vital signs: Vital Signs Temp 97.4 F L 03/04/23 07:30 Pulse 88 03/04/23 08:11 Resp 19 03/04/23 07:30 BP 101/64 03/04/23 07:30 Pulse Ox 94 L 03/04/23 07:30 FiO2 Intake & Output 03/03/23 03/04/23 03/04/23 18:59 06:59 18:59 Output Total 8 Balance -8 Output: Urine 2 Stool 6 Other: Voiding Method Bedside Commode Bedside Commode # Bowel Movements 1 5 1 - Exam Resting comfortably in bed. Dressing intact over hip. - Labs CBC & Chem 7: 03/04/23 05:31 03/04/23 05:31 Labs: Abnormal Lab Results - Last 24 Hours (Table) 03/03/23 03/04/23 03/04/23 Range/Units 16:54 05:27 05:31 WBC 12.9 H (3.8-10.6) k/uL RBC 3.02 L (3.80-5.40) m/uL Hgb 9.2 L (11.4-16.0) gm/dL Hct 30.0 L (34.0-46.0) % MCHC 30.8 L (31.0-37.0) g/dL RDW 16.2 H (11.5-15.5) % Neutrophils # 10.4 H (1.3-7.7) k/uL Potassium (3.5-5.1) mmol/L Chloride (98-107) mmol/L BUN (7-17) mg/dL POC Glucose (mg/dL) 163 H 111 H (70-110) mg/dL Calcium (8.4-10.2) mg/dL Alkaline Phosphatase (38-126) U/L Total Protein (6.3-8.2) g/dL Albumin (3.5-5.0) g/dL 03/04/23 Range/Units 05:31 WBC (3.8-10.6) k/uL RBC (3.80-5.40) m/uL Hgb (11.4-16.0) gm/dL Hct (34.0-46.0) % MCHC (31.0-37.0) g/dL RDW (11.5-15.5) % Neutrophils # (1.3-7.7) k/uL Potassium 3.0 L (3.5-5.1) mmol/L Chloride 108 H (98-107) mmol/L BUN 21 H (7-17) mg/dL POC Glucose (mg/dL) (70-110) mg/dL Calcium 7.8 L (8.4-10.2) mg/dL Alkaline Phosphatase 829 H (38-126) U/L Total Protein 4.1 L (6.3-8.2) g/dL Albumin 1.8 L (3.5-5.0) g/dL Assessment and Plan Plan: Continue treatment as outlined. Patient denies back pain this morning. Internal medicine for medical issues including management of C. diff. Discharge to rehab when medically cleared, likely Monday
[2023-03-04 11:16] LABS: Glucose,Whole Blood 122 mg/dL (70-110)
--- NOTE | 2023-03-04 11:19 | P.PN ---
Progress Note - Text Progress Note Date: 03/04/23 CHIEF COMPLAINT: Fall with left hip fracture HISTORY OF PRESENT ILLNESS: Patient denies any abdominal pain. Denies any nausea or vomiting. She is tolerating diet. Afebrile. Patient noted to have a positive C. diff colitis PHYSICAL EXAM: VITAL SIGNS: Reviewed. GENERAL: Well-developed in no acute distress. ABDOMEN: Soft. Nondistended. Nontender. NEUROLOGIC: Alert and oriented. Cranial nerves II through XII grossly intact. ASSESSMENT: 1. Cholecystitis. Ultrasound showing thickened gallbladder wall with cholelithiasis 2. History of recent biliary stent placement at [facility] 3. Fall with left hip fracture orthopedic surgery PLAN: -Discontinue the Rocephin due to patient having active C. diff colitis -Labs reviewed -Recommend that patient follows up with GI service for biliary stent removal in March as scheduled -Continue regular diet -C. diff management per medicine service they did add oral vancomycin
--- NOTE | 2023-03-04 13:01 | P.PN ---
Subjective Progress Note Date: 03/04/23 Subjective: Seen and examined at bedside. Having multiple loose bowel movements. Has a fecal management system. Pertinent positives and negatives as discussed above, a complete review of suzi patterson was performed and all other systems are negative. Vitals Signs Reviewed. General: nontoxic, no distress, appears at stated age Derm: warm, dry, dressing clean, dry, intact Head: atraumatic, normocephalic, symmetric Eyes: EOMI, no lid lag, anicteric sclera Mouth: no lip lesion, mucus membranes moist Cardiovascular: S1S2 reg, no murmur Lungs: CTA bilateral, no rhonchi, no rales , no accessory muscle use, supplemental oxygen Abdominal: soft, nontender to palpation, no guarding, no appreciable organomegaly Ext: no gross muscle atrophy, no edema, no contractures Neuro: CN II-XI grossly intact, no focal neuro deficits Psych: Alert, oriented, appropriate affect Data Reviewed Today: Pertinent Labs: WBC 12.9, hemoglobin 9.2, potassium 3, creatinine 0.86, magnesium 1.6, leukosis ranged between 77-122 Imaging: No new imaging Assessment and Plan: Patient needs close monitoring. Sepsis secondary to Severe C. diff infection, present on admission Leukocytosis, improving Acute on chronic cholecystitis -Continue oral vancomycin 500 4 times a day, and IV Flagyl 500 mg 3 times a day -Surgery note reviewed, discontinued IV ceftriaxone -She did have diagnosis of cholelithiasis without acute cholecystitis at the end of December, and had biliary stent placed, needs outpatient removal -Repeat CBC and CMP tomorrow -Hold pantoprazole as he can increase the risk for worsening C. diff infection, already on famotidine. -Hold propanolol Hypokalemia Hypomagnesemia -80meq oral potassium given, 4 g of IV magnesium sulfate given COPD with chronic respiratory failure on chronic home oxygen nightly 2 L, no exacerbation Obstructive sleep apnea -Continue home bronchodilators History of renal cancer status post right nephrectomy Acute urinary retention, resolved Left femoral neck fracture secondary to mechanical accidental fall at home Acute blood loss anemia, anticipated outcome of surgery -Management per orthopedic team for pain control and DVT prophylaxis type of surgery -Patient on oral [place] as needed, IV Dilaudid as needed, monitor for respiratory depression -on Lovenox 40 daily Chronic: Hypothyroidism Dyslipidemia Depression Psychotic disorder -Medications reviewed and reconciled Patient has a bed available for at inpatient rehab. However not medically optimized at the moment due to significant diarrhea. Possible discharge on Monday. Thank you for allowing us to participate in the care of this pleasant patient. Do not hesitate to contact us with questions. Someone can be reached from the [facility] hospitalist group all hours of the day at [phone] or via perfect serve. Objective - Vital Signs Vital signs: Vital Signs Temp 97.4 F L 03/04/23 07:30 Pulse 88 03/04/23 11:19 Resp 19 03/04/23 07:30 BP 101/64 03/04/23 07:30 Pulse Ox 94 L 03/04/23 07:30 FiO2 Intake & Output 03/03/23 03/04/23 03/04/23 18:59 06:59 18:59 Output Total 8 Balance -8 Output: Urine 2 Stool 6 Other: Voiding Method Bedside Commode Bedside Commode # Bowel Movements 1 5 1 - Labs CBC & Chem 7: 03/04/23 05:31 03/04/23 05:31 Labs: Abnormal Lab Results - Last 24 Hours (Table) 03/03/23 03/04/23 03/04/23 Range/Units 16:54 05:27 05:31 WBC 12.9 H (3.8-10.6) k/uL RBC 3.02 L (3.80-5.40) m/uL Hgb 9.2 L (11.4-16.0) gm/dL Hct 30.0 L (34.0-46.0) % MCHC 30.8 L (31.0-37.0) g/dL RDW 16.2 H (11.5-15.5) % Neutrophils # 10.4 H (1.3-7.7) k/uL Potassium (3.5-5.1) mmol/L Chloride (98-107) mmol/L BUN (7-17) mg/dL POC Glucose (mg/dL) 163 H 111 H (70-110) mg/dL Calcium (8.4-10.2) mg/dL Alkaline Phosphatase (38-126) U/L Total Protein (6.3-8.2) g/dL Albumin (3.5-5.0) g/dL 03/04/23 03/04/23 Range/Units 05:31 11:14 WBC (3.8-10.6) k/uL RBC (3.80-5.40) m/uL Hgb (11.4-16.0) gm/dL Hct (34.0-46.0) % MCHC (31.0-37.0) g/dL RDW (11.5-15.5) % Neutrophils # (1.3-7.7) k/uL Potassium 3.0 L (3.5-5.1) mmol/L Chloride 108 H (98-107) mmol/L BUN 21 H (7-17) mg/dL POC Glucose (mg/dL) 122 H (70-110) mg/dL Calcium 7.8 L (8.4-10.2) mg/dL Alkaline Phosphatase 829 H (38-126) U/L Total Protein 4.1 L (6.3-8.2) g/dL Albumin 1.8 L (3.5-5.0) g/dL
[2023-03-04] MEDS: POTASSIUM CHLORIDE ER 20 MEQ TAB.ER PO SCH ×2 (13:44→15:07)
[2023-03-04] MEDS: MAGNESIUM SULFATE-D5W PMX 1 GM in DEXTROSE/WATER 1 100ML.BAG IVPB SCH ×4 (13:44→19:14)
[2023-03-04 16:43] LABS: Glucose,Whole Blood 146 mg/dL (70-110)
[2023-03-04] MEDS: TAMSULOSIN 0.4 MG CAP.ER.24H PO SCH (17:56)
[2023-03-04] MEDS: ZIPRASIDONE 60 MG CAP PO SCH (18:09)
[2023-03-04] MEDS: SENNOSIDES-DOCUSATE SODIUM 1 EACH TAB PO SCH (20:26)
[2023-03-04] MEDS: ATORVASTATIN 40 MG TAB PO SCH (21:48)
[2023-03-04] MEDS: ALPRAZolam 0.5 MG TAB PO PRN (22:08)
[2023-03-05] MEDS: metroNIDAZOLE-NS PMX 500 MG in SALINE 1 100ML.BAG IVPB SCH ×3 (00:55→16:45)
[2023-03-05 02:34] LABS: Glucose,Whole Blood 145 mg/dL (70-110)
[2023-03-05 05:20] LABS: Glucose,Whole Blood 156 mg/dL (70-110)
[2023-03-05 05:29] LABS: Anisocytosis Slight; Basophils % (A) 0 %; Eosinophils # (A) 0.3 k/uL (0-0.7); Eosinophils % (A) 3 %; HCT 29.1 % (34.0-46.0); HGB 8.9 gm/dL (11.4-16.0); Hypochromasia Marked; Lymphocytes # (A) 1.4 k/uL (1.0-4.8); Lymphocytes % (A) 14 %; MCH 30.6 pg (25.0-35.0); MCHC 30.5 g/dL (31.0-37.0); MCV 100.3 fL (80.0-100.0); Macrocytosis Slight; Mean Platelet Volume 8.1; Monocytes # (A) 0.4 k/uL (0-1.0); Monocytes % (A) 4 %; Neutrophils # (A) 7.8 k/uL (1.3-7.7); Neutrophils % (A) 78 %; Platelet Count 308 k/uL (150-450); RDW 16.4 % (11.5-15.5); WBC 10.1 k/uL (3.8-10.6)
[2023-03-05 05:43] LABS: African American GFR (CKD) 70 (>60 ml/min/1.73 sqM); Albumin 1.7 g/dL (3.5-5.0); Albumin/Globulin Ratio 0.7; Anion Gap 6 mmol/L; Blood Urea Nitrogen 14 mg/dL (7-17); Calcium 7.4 mg/dL (8.4-10.2); Carbon Dioxide 22 mmol/L (22-30); Chloride 112 mmol/L (98-107); Globulin 2.4 g/dL; Magnesium 2.1 mg/dL (1.6-2.3); Non-African American GFR(CKD) 61 (>60 ml/min/1.73 sqM); Potassium 3.2 mmol/L (3.5-5.1); Sodium 140 mmol/L (137-145); Total Bilirubin 0.5 mg/dL (0.2-1.3); Total Protein 4.1 g/dL (6.3-8.2)
[2023-03-05 05:48] LABS: ALT 11 U/L (4-34); AST 28 U/L (14-36); Glucose 144 mg/dL (74-99)
[2023-03-05 05:59] LABS: Alkaline Phosphatase 840 U/L (38-126)
[2023-03-05] MEDS: SODIUM CHLORIDE 0.9% 1,000 ML IV SCH ×3 (06:05→18:34)
[2023-03-05] MEDS: buPROPion SR 100 MG TABLET.ER PO SCH ×2 (06:21→16:45)
[2023-03-05] MEDS: ZIPRASIDONE 40 MG CAP PO SCH (06:21)
[2023-03-05] MEDS: BALSALAZIDE DISODIUM 750 MG CAPSULE PO SCH ×3 (06:22→16:45)
[2023-03-05] MEDS: SODIUM BICARBONATE TAB 650 MG TAB PO SCH ×2 (06:22→16:46)
[2023-03-05] MEDS: LEVOTHYROXINE 112 MCG TAB PO SCH (06:22)
[2023-03-05] MEDS: MIDODRINE 5 MG TAB PO SCH ×3 (06:42→16:38)
[2023-03-05] MEDS: IPRATROPIUM 0.5 MG/2.5 ML NEBU INHALATION SCH ×4 (08:00→20:40)
[2023-03-05] MEDS: SYMBICORT 80-4.5 MCG INHALER INHALATION SCH ×2 (08:00→20:40)
--- NOTE | 2023-03-05 08:19 | P.PN ---
Subjective No new orthopedic issues. Objective - Vital Signs Vital signs: Vital Signs Temp 97.8 F 03/05/23 01:55 Pulse 116 H 03/05/23 08:00 Resp 17 03/05/23 01:55 BP 111/69 03/05/23 06:25 Pulse Ox 95 03/05/23 08:00 FiO2 Intake & Output 03/04/23 03/05/23 03/05/23 18:59 06:59 18:59 Output Total 1250 300 Balance -1250 -300 Output: Urine 1250 300 Uretheral (Wells) 600 Other: Voiding Method Bedside Commode Bedside Commode Indwelling Catheter # Voids 1 # Bowel Movements 1 - Exam Resting comfortably in bed. Dressing over left hip intact with no drainage or strike through. - Labs CBC & Chem 7: 03/05/23 05:01 03/05/23 05:01 Labs: Abnormal Lab Results - Last 24 Hours (Table) 03/04/23 03/04/23 03/05/23 Range/Units 11:14 16:41 02:30 RBC (3.80-5.40) m/uL Hgb (11.4-16.0) gm/dL Hct (34.0-46.0) % MCV (80.0-100.0) fL MCHC (31.0-37.0) g/dL RDW (11.5-15.5) % Neutrophils # (1.3-7.7) k/uL Potassium (3.5-5.1) mmol/L Chloride (98-107) mmol/L Glucose (74-99) mg/dL POC Glucose (mg/dL) 122 H 146 H 145 H (70-110) mg/dL Calcium (8.4-10.2) mg/dL Alkaline Phosphatase (38-126) U/L Total Protein (6.3-8.2) g/dL Albumin (3.5-5.0) g/dL 03/05/23 03/05/23 03/05/23 Range/Units 05:01 05:01 05:19 RBC 2.90 L (3.80-5.40) m/uL Hgb 8.9 L (11.4-16.0) gm/dL Hct 29.1 L (34.0-46.0) % MCV 100.3 H (80.0-100.0) fL MCHC 30.5 L (31.0-37.0) g/dL RDW 16.4 H (11.5-15.5) % Neutrophils # 7.8 H (1.3-7.7) k/uL Potassium 3.2 L (3.5-5.1) mmol/L Chloride 112 H (98-107) mmol/L Glucose 144 H (74-99) mg/dL POC Glucose (mg/dL) 156 H (70-110) mg/dL Calcium 7.4 L (8.4-10.2) mg/dL Alkaline Phosphatase 840 H (38-126) U/L Total Protein 4.1 L (6.3-8.2) g/dL Albumin 1.7 L (3.5-5.0) g/dL Assessment and Plan Plan: No new orthopedic issues continue treatment as outlined. Medical management per internal medicine. Discharge planning.
[2023-03-05] MEDS ORDERED: POTASSIUM CHLORIDE ER 20 MEQ TAB.ER PO STA (08:26)
[2023-03-05] MEDS: FAMOTIDINE 20 MG TAB PO SCH (09:37)
[2023-03-05] MEDS: TAMSULOSIN 0.4 MG CAP.ER.24H PO SCH (09:37)
[2023-03-05] MEDS: ENOXAPARIN 40 MG/0.4 ML SYRINGE SQ SCH (09:37)
[2023-03-05] MEDS: VANCOMYCIN ORAL SOLUTION 250 MG/5 ML BOTTLE PO SCH ×4 (09:38→22:22)
[2023-03-05 11:00] LABS: Glucose,Whole Blood 129 mg/dL (70-110)
--- NOTE | 2023-03-05 11:26 | P.PN ---
Subjective Progress Note Date: 03/05/23 Principal diagnosis: Chronic cholecystitis Patient doing well today. Denies abdominal pain. Tolerating diet. No fevers. Labs noted. Objective - Vital Signs Vital signs: Vital Signs Temp 97.7 F 03/05/23 06:40 Pulse 112 H 03/05/23 08:19 Resp 20 03/05/23 06:40 BP 113/66 03/05/23 06:40 Pulse Ox 95 03/05/23 08:00 FiO2 Intake & Output 03/04/23 03/05/23 03/05/23 18:59 06:59 18:59 Output Total 1250 300 Balance -1250 -300 Output: Urine 1250 300 Uretheral ([place]) 600 Other: Voiding Method Bedside Commode Bedside Commode Indwelling Catheter # Voids 1 # Bowel Movements 1 - Exam Abdomen: Soft, nontender, nondistended - Labs CBC & Chem 7: 03/05/23 05:01 03/05/23 05:01 Labs: Abnormal Lab Results - Last 24 Hours (Table) 03/04/23 03/05/23 03/05/23 Range/Units 16:41 02:30 05:01 RBC 2.90 L (3.80-5.40) m/uL Hgb 8.9 L (11.4-16.0) gm/dL Hct 29.1 L (34.0-46.0) % MCV 100.3 H (80.0-100.0) fL MCHC 30.5 L (31.0-37.0) g/dL RDW 16.4 H (11.5-15.5) % Neutrophils # 7.8 H (1.3-7.7) k/uL Potassium (3.5-5.1) mmol/L Chloride (98-107) mmol/L Glucose (74-99) mg/dL POC Glucose (mg/dL) 146 H 145 H (70-110) mg/dL Calcium (8.4-10.2) mg/dL Alkaline Phosphatase (38-126) U/L Total Protein (6.3-8.2) g/dL Albumin (3.5-5.0) g/dL 03/05/23 03/05/23 03/05/23 Range/Units 05:01 05:19 10:59 RBC (3.80-5.40) m/uL Hgb (11.4-16.0) gm/dL Hct (34.0-46.0) % MCV (80.0-100.0) fL MCHC (31.0-37.0) g/dL RDW (11.5-15.5) % Neutrophils # (1.3-7.7) k/uL Potassium 3.2 L (3.5-5.1) mmol/L Chloride 112 H (98-107) mmol/L Glucose 144 H (74-99) mg/dL POC Glucose (mg/dL) 156 H 129 H (70-110) mg/dL Calcium 7.4 L (8.4-10.2) mg/dL Alkaline Phosphatase 840 H (38-126) U/L Total Protein 4.1 L (6.3-8.2) g/dL Albumin 1.7 L (3.5-5.0) g/dL Assessment and Plan (1) Chronic cholecystitis Narrative/Plan: 62-year-old female with history of pre-this cholecystitis and suspected choledocholithiasis. She states she has a stent in place and that it is being managed by GI at [facility]. She says she has a follow-up to see them in a few weeks. She is doing well at this time regarding her abdominal issues. We'll sign off. Please call if needed. Recommend outpatient follow-up with her specialists at [facility]. Current Visit: Yes Status: Acute Code(s): K81.1 - CHRONIC CHOLECYSTITIS SNOMED Code(s): 06797429
--- NOTE | 2023-03-05 13:32 | P.PN ---
Subjective Progress Note Date: 03/05/23 Subjective: Seen and examined at bedside. Bowel movements have slowed down. Has a fecal management system, now discontinued. Pertinent positives and negatives as discussed above, a complete review of systems was performed and all other systems are negative. Vitals Signs Reviewed. General: nontoxic, no distress, appears at stated age Derm: warm, dry, dressing clean, dry, intact Head: atraumatic, normocephalic, symmetric Eyes: EOMI, no lid lag, anicteric sclera Mouth: no lip lesion, mucus membranes moist Cardiovascular: S1S2 reg, no murmur Lungs: CTA bilateral, no rhonchi, no rales , no accessory muscle use Abdominal: soft, nontender to palpation, no guarding, no appreciable organ omegaly Ext: no gross muscle atrophy, no edema, no contractures Neuro: CN II-XI grossly intact, no focal neuro deficits Psych: Alert, oriented, appropriate affect Data Reviewed Today: Pertinent Labs: WBC 10.1, hemoglobin 8.9, potassium 3.2, creatinine 0.99, blood sugars range between 129-156, magnesium 2.1 Imaging: No new imaging Assessment and Plan: Sepsis secondary to Severe C. diff infection, present on admission, resolving Leukocytosis, resolved Acute on chronic cholecystitis -Continue oral vancomycin 500 4 times a day, and IV Flagyl 500 mg 3 times a day -Surgery note reviewed, signed off -She did have diagnosis of cholelithiasis without acute cholecystitis at the end of December, and had biliary stent placed, needs outpatient removal -Hold pantoprazole, already on famotidine. -Restart propanolol as patient is becoming tachycardic Hypokalemia Hypomagnesemia, resolved - 40 mEq of oral potassium given -Repeat BMP tomorrow COPD with chronic respiratory failure on chronic home oxygen nightly 2 L, no exacerbation Obstructive sleep apnea -Continue home bronchodilators History of renal cancer status post right nephrectomy Acute urinary retention, status post Wells catheter Left femoral neck fracture secondary to mechanical accidental fall at home Acute blood loss anemia, anticipated outcome of surgery -Management per orthopedic team for pain control and DVT prophylaxis type of surgery -Patient on oral [place] as needed, IV Dilaudid as needed, monitor for respiratory depression -on Lovenox 40 daily Chronic: Hypothyroidism Dyslipidemia Depression Psychotic disorder -Medications reviewed and reconciled Patient has a bed available for at inpatient rehab. Possible discharge tomorrow. Thank you for allowing us to participate in the care of this pleasant patient. Do not hesitate to contact us with questions. Someone can be reached from the [facility] hospitalist group all hours of the day at [phone] or via perfect serve. Objective - Vital Signs Vital signs: Vital Signs Temp 97.7 F 03/05/23 06:40 Pulse 104 H 03/05/23 12:09 Resp 20 03/05/23 06:40 BP 113/66 03/05/23 06:40 Pulse Ox 95 03/05/23 08:00 FiO2 Intake & Output 03/04/23 03/05/23 03/05/23 18:59 06:59 18:59 Output Total 1250 300 800 Balance -1250 -300 -800 Output: Urine 1250 300 800 Uretheral (Wells) 600 Other: Voiding Method Bedside Commode Bedside Commode Bedside Commode Indwelling Catheter Indwelling Catheter # Voids 1 # Bowel Movements 1 1 - Labs CBC & Chem 7: 03/05/23 05:01 03/05/23 05:01 Labs: Abnormal Lab Results - Last 24 Hours (Table) 03/04/23 03/05/23 03/05/23 Range/Units 16:41 02:30 05:01 RBC 2.90 L (3.80-5.40) m/uL Hgb 8.9 L (11.4-16.0) gm/dL Hct 29.1 L (34.0-46.0) % MCV 100.3 H (80.0-100.0) fL MCHC 30.5 L (31.0-37.0) g/dL RDW 16.4 H (11.5-15.5) % Neutrophils # 7.8 H (1.3-7.7) k/uL Potassium (3.5-5.1) mmol/L Chloride (98-107) mmol/L Glucose (74-99) mg/dL POC Glucose (mg/dL) 146 H 145 H (70-110) mg/dL Calcium (8.4-10.2) mg/dL Alkaline Phosphatase (38-126) U/L Total Protein (6.3-8.2) g/dL Albumin (3.5-5.0) g/dL 03/05/23 03/05/23 03/05/23 Range/Units 05:01 05:19 10:59 RBC (3.80-5.40) m/uL Hgb (11.4-16.0) gm/dL Hct (34.0-46.0) % MCV (80.0-100.0) fL MCHC (31.0-37.0) g/dL RDW (11.5-15.5) % Neutrophils # (1.3-7.7) k/uL Potassium 3.2 L (3.5-5.1) mmol/L Chloride 112 H (98-107) mmol/L Glucose 144 H (74-99) mg/dL POC Glucose (mg/dL) 156 H 129 H (70-110) mg/dL Calcium 7.4 L (8.4-10.2) mg/dL Alkaline Phosphatase 840 H (38-126) U/L Total Protein 4.1 L (6.3-8.2) g/dL Albumin 1.7 L (3.5-5.0) g/dL
[2023-03-05] MEDS ORDERED: PROPRANOLOL 10 MG TAB PO SCH (13:45)
[2023-03-05] MEDS: traMADol 50 MG TAB PO PRN (14:29)
[2023-03-05] MEDS: PROPRANOLOL 10 MG TAB PO SCH (15:51)
[2023-03-05] MEDS: ZIPRASIDONE 60 MG CAP PO SCH (16:45)
[2023-03-05 16:50] LABS: Glucose,Whole Blood 90 mg/dL (70-110)
[2023-03-05] MEDS: HYDROcodone/APAP 5-325MG 1 EACH TAB PO PRN (18:29)
[2023-03-05] MEDS: ATORVASTATIN 40 MG TAB PO SCH (22:22)
[2023-03-05] MEDS: ALPRAZolam 0.5 MG TAB PO PRN (22:22)
[2023-03-06 00:18] VITALS: RESP 18
[2023-03-06] MEDS: metroNIDAZOLE-NS PMX 500 MG in SALINE 1 100ML.BAG IVPB SCH ×2 (00:29→08:10)
[2023-03-06] MEDS: SENNOSIDES-DOCUSATE SODIUM 1 EACH TAB PO SCH (00:39)
[2023-03-06 05:24] LABS: Glucose,Whole Blood 84 mg/dL (70-110)
[2023-03-06] MEDS: SODIUM BICARBONATE TAB 650 MG TAB PO SCH (06:01)
[2023-03-06] MEDS: HYDROcodone/APAP 5-325MG 1 EACH TAB PO PRN ×2 (06:01→12:52)
[2023-03-06] MEDS: LEVOTHYROXINE 112 MCG TAB PO SCH (06:01)
[2023-03-06] MEDS: SODIUM CHLORIDE 0.9% 1,000 ML IV SCH ×2 (06:01→12:41)
[2023-03-06] MEDS: BALSALAZIDE DISODIUM 750 MG CAPSULE PO SCH ×2 (06:03→12:40)
[2023-03-06] MEDS: buPROPion SR 100 MG TABLET.ER PO SCH (06:03)
[2023-03-06] MEDS: PROPRANOLOL 10 MG TAB PO SCH (06:15)
[2023-03-06] MEDS: ZIPRASIDONE 40 MG CAP PO SCH (06:15)
[2023-03-06] MEDS: MIDODRINE 5 MG TAB PO SCH ×2 (06:41→12:52)
[2023-03-06] MEDS: ENOXAPARIN 40 MG/0.4 ML SYRINGE SQ SCH (08:09)
[2023-03-06] MEDS: TAMSULOSIN 0.4 MG CAP.ER.24H PO SCH (08:10)
[2023-03-06] MEDS: FAMOTIDINE 20 MG TAB PO SCH (08:10)
[2023-03-06] MEDS: VANCOMYCIN ORAL SOLUTION 250 MG/5 ML BOTTLE PO SCH (08:14)
[2023-03-06 08:54] VITALS: TEMP 97.5
[2023-03-06] MEDS: IPRATROPIUM 0.5 MG/2.5 ML NEBU INHALATION SCH ×2 (09:14→12:06)
[2023-03-06] MEDS: SYMBICORT 80-4.5 MCG INHALER INHALATION SCH (09:14)
[2023-03-06 09:30] LABS: Magnesium 1.6 mg/dL (1.5-2.4)
[2023-03-06 09:55] LABS: Blood Urea Nitrogen 11.7 mg/dL (9.0-27.0); Carbon Dioxide 23.4 mmol/L (21.6-31.8); Chloride 116 mmol/L (96-109); Glucose 75 mg/dL (70-110); Sodium 145 mmol/L (135-145)
[2023-03-06 11:15] LABS: Anisocytosis Slight; HCT 31.4 % (34.0-46.0); HGB 9.6 gm/dL (11.4-16.0); Hypochromasia Marked; MCH 31.1 pg (25.0-35.0); MCHC 30.7 g/dL (31.0-37.0); MCV 101.1 fL (80.0-100.0); Macrocytosis Slight; Mean Platelet Volume 9.2; Platelet Count 365 k/uL (150-450); RDW 16.2 % (11.5-15.5); WBC 9.2 k/uL (3.8-10.6)
[2023-03-06] MEDS ORDERED: MAGNESIUM SULFATE-D5W PMX 1 GM in DEXTROSE/WATER 1 100ML.BAG IVPB SCH (11:30)
--- NOTE | 2023-03-06 11:40 | P.PN ---
Subjective Progress Note Date: 03/06/23 Patient is a 62-year-old female with a history of COPD home O2 dependent at 2 L, hypertension, dyslipidemia, multiple other comorbid conditions who presented to the hospital after a slip and fall resulting in a left hip fracture. Her course was complicated by C. diff colitis. Patient seen and examined at bedside. She is doing well. She believes that her stooling is back to her baseline. She typically has multiple soft stools daily. She denies any nausea, vomiting, or abdominal pain. Her hip pain is fairly well controlled. No other complaints currently. Vital signs reviewed General: nontoxic, no distress, appears at stated age Cardiovascular: S1S2 reg, no murmur, positive posterior tibial pulse bilateral, Lungs: CTA bilateral, no rhonchi, no rales , no accessory muscle use Abdominal: soft, nontender to palpation, no guarding, no appreciable organomegaly Ext: no gross muscle atrophy, no edema b/l lower extremities, no contractures Neuro: CN II-XI grossly intact, no focal neuro deficits Psych: Alert, oriented, appropriate affect Assessment/Plan: 62-year-old female with left hip fracture status post left hip hemiarthroplasty -Postoperative management by orthopedic surgery. Sepsis secondary to Severe C. diff infection, present on admission, resolving - Vancomycin 125mg PO QID D # 4/, continue mesalamine- orders added to discharge med rec - Okay for discharge to [facility] Acute blood loss anemia, anticipated outcome of surgery Hgb Stable Acute on chronic cholecystitis She did have diagnosis of cholelithiasis without acute cholecystitis at the end of December, and had biliary stent placed, needs outpatient removal Resolved: Leukocytosis, resolved Hypokalemia Hypomagnesemia History of renal cancer status post right nephrectomy Acute urinary retention, status post Wells catheter Chronic: Hypothyroidism Dyslipidemia Depression Mental health disorder Imaging: None new Data Review: Labs reviewed today include CBC, basic metabolic profile, and magnesium level which are remarkable for hemoglobin 9.6, chloride 116, and magnesium 1.6. Thank you for allowing us to participate in the care of this pleasant patient. Do not hesitate to contact us with questions. Someone can be reached from the [facility] hospitalist group all hours of the day at [phone] or via [employer] serve. This dictation was prepared using [employer] voice recognition software. Though every attempt is made to correct errors during dictation some may still exist. Objective - Vital Signs Vital signs: Vital Signs Temp 97.5 F L 03/06/23 07:06 Pulse 96 03/06/23 09:27 Resp 18 03/06/23 07:06 BP 130/81 03/06/23 07:06 Pulse Ox 92 L 03/06/23 09:14 FiO2 21 03/06/23 09:14 Intake & Output 03/05/23 03/06/23 03/06/23 18:59 06:59 18:59 Output Total 800 2 Balance -800 -2 Output: Urine 800 Stool 2 Other: Voiding Method Bedside Commode Bedside Commode Toilet Indwelling Catheter Indwelling Catheter # Voids 2 2 # Bowel Movements 1 3 - Labs CBC & Chem 7: 03/06/23 04:32 03/06/23 04:32 Labs: Abnormal Lab Results - Last 24 Hours (Table) 03/06/23 03/06/23 Range/Units 04:32 04:32 RBC 3.10 L (3.80-5.40) m/uL Hgb 9.6 L (11.4-16.0) gm/dL Hct 31.4 L (34.0-46.0) % MCV 101.1 H (80.0-100.0) fL MCHC 30.7 L (31.0-37.0) g/dL RDW 16.2 H (11.5-15.5) % Chloride 116 H (96-109) mmol/L Calcium 8.0 L (8.7-10.3) mg/dL
[2023-03-06 11:57] LABS: Glucose,Whole Blood 95 mg/dL (70-110)
--- NOTE | 2023-03-06 12:24 | P.PN ---
Subjective Progress Note Date: 03/06/23 This is a 62-year-old female who is status post left hip hemiarthroplasty with direct anterior approach. This is postoperative day #6 and patient is seen and evaluated at bedside today. Patient states that her back has been sore today and she had a similar chronic back pain prior to falling. Patient states that she has been able to work with physical therapy. Patient denies any radicular pain, numbness, weakness or tingling. Objective - Vital Signs Vital signs: Vital Signs Temp 97.5 F L 03/06/23 07:06 Pulse 96 03/06/23 12:17 Resp 18 03/06/23 07:06 BP 130/81 03/06/23 07:06 Pulse Ox 92 L 03/06/23 09:14 FiO2 21 03/06/23 09:14 Intake & Output 03/05/23 03/06/23 03/06/23 18:59 06:59 18:59 Output Total 800 2 Balance -800 -2 Output: Urine 800 Stool 2 Other: Voiding Method Bedside Commode Bedside Commode Toilet Indwelling Catheter Indwelling Catheter # Voids 2 2 # Bowel Movements 1 3 - Exam Vital signs are stable. Patient is in no acute distress and is alert and oriented 3. Calf is soft and nontender to palpation. Dressing is clean, dry, and intact. Patient has full foot and ankle motion without pain or difficulty. Sensation intact. Neurovascular status and circulatory status are intact. On inspection of the back there is no erythema, swelling, deformity or step off noted. There is no tenderness to palpation over the lumbar midline or paraspinal muscles. Patient is able to actively roll to the side without pain or difficulty. Patient moves upper and lower extremities freely. Sensation intact bilaterally. Neurovascular status and circulatory status are intact. - Labs CBC & Chem 7: 03/06/23 04:32 03/06/23 04:32 Labs: Abnormal Lab Results - Last 24 Hours (Table) 03/06/23 03/06/23 Range/Units 04:32 04:32 RBC 3.10 L (3.80-5.40) m/uL Hgb 9.6 L (11.4-16.0) gm/dL Hct 31.4 L (34.0-46.0) % MCV 101.1 H (80.0-100.0) fL MCHC 30.7 L (31.0-37.0) g/dL RDW 16.2 H (11.5-15.5) % Chloride 116 H (96-109) mmol/L Calcium 8.0 L (8.7-10.3) mg/dL Assessment and Plan Assessment: Left femoral neck fracture. Status post left hip hemiarthroplasty with direct anterior approach. (1) Fall Current Visit: Yes Status: Acute Code(s): W19.XXXA - UNSPECIFIED FALL, INITIAL ENCOUNTER SNOMED Code(s): 6462420 (2) Left displaced femoral neck fracture Current Visit: Yes Status: Acute Code(s): S72.002A - FRACTURE OF UNSP PART OF NECK OF LEFT FEMUR, INIT SNOMED Code(s): 4034780 Plan: Continue routine postop care and pain control. Continue anticoagulation per internal medicine. Weightbearing as tolerated with a walker. Lumbar xrays from 02/27/2023 are reviewed and reveal a compresion fracture of L1. We will obtain a TLSO brace to be worn when out of bed. May be removed when lying <45 degrees and for hygiene. Leave dressing in place for 7 days. Appreciate input from internal medicine. [facility] later today once brace is obtained.
--- NOTE | 2023-03-06 12:47 | P.DS ---
Providers Date of admission: 02/27/23 23:49 Expected date of discharge: 03/06/23 Attending physician: Jonathan Zeng Consults: 02/27/23 23:49 Consult Physician Routine Consulting Provider: Robert Araiza Consult Reason/Comments: Medical clearance/management Do you want consulting provider notified?: Already Contacted 03/01/23 13:52 Consult Physician Routine Consulting Provider: Elton Fonseca Consult Reason/Comments: ECF placement Do you want consulting provider notified?: Yes Primary care physician: Sylvester Saenz MD - Discharge Diagnosis(es) (1) Fall Current Visit: Yes Status: Acute (2) Left displaced femoral neck fracture Current Visit: Yes Status: Acute Hospital Course: This is a 62-year-old female who sustained a subcapital fracture of the left hip after a fall at home on 02/27/2023. The patient presented for evaluation in the emergency room. After discussion and consideration patient elects to proceed with left hip hemiarthroplasty. The patient is seen preoperatively by Dr. Zeng and cleared for surgery by internal medicine. Patient is admitted to [facility] on 02/27/2023 and left hip hemiarthroplasty is performed on 02/28/2023. The procedures performed without complication or sequelae. The patient is doing well postoperatively. Labs and vital signs are stable on day of discharge. Patient received a TLSO brace for L1 compression fracture as well. On day of discharge patient's hip incision is healing well. There is minimal erythema. There is no drainage noted at this time. There is minimal soft tissue swelling to the hip and thigh. Patient has full foot and ankle motion without difficulty or pain. Neurovascular status to the left lower extremity is intact. On inspection of the back there is no erythema, swelling, deformity or step off noted. There is no tenderness to palpation over the lumbar midline or paraspinal muscles. Patient is able to actively roll to the side without pain or difficulty. Patient moves upper and lower extremities freely. Sensation intact bilaterally. Neurovascular status and circulatory status are intact. Patient is discharged to rehab in good condition. Please see med rec for accurate list of home medications. Patient Condition at Discharge: Fair Plan - Discharge Summary Discharge Rx Participant: Yes New Discharge Prescriptions: New Tamsulosin [Flomax] 0.4 mg PO PC-BRKFST cap HYDROcodone/APAP 5-325MG [[place] 5-325] 1 - 2 tab PO Q6HR PRN #32 tab PRN Reason: Pain Propranolol [Inderal] 10 mg PO 0530,1730 tab Vancomycin Oral Solution 125 mg PO Q6HR #100 ml Continue Ziprasidone [Geodon] 40 mg PO DAILY@0530 Mesalamine [Delzicol] 800 mg PO TID@0530,1200,1730 Albuterol Inhaler [Ventolin Hfa Inhaler] 2 puff INHALATION RT-Q6H PRN PRN Reason: Shortness Of Breath buPROPion HCL [Wellbutrin SR] 200 mg PO BID@0530,1730 Ziprasidone [Geodon] 60 mg PO HS@1730 Levothyroxine Sodium [Synthroid] 112 mcg PO DAILY@0530 Cyanocobalamin (Vitamin B-12) [Vitamin B-12] 1,000 mcg PO BID@0530,1730 Pantoprazole [Protonix] 40 mg PO BID@0530,1730 Sodium Bicarbonate Tab 650 mg PO BID@0530,1730 Multivitamins, Thera [Multivitamin (formulary)] 1 tab PO DAILY@0530 Atorvastatin Calcium [Lipitor] 40 mg PO HS@1730 Albuterol Nebulized [Ventolin Nebulized] 2.5 mg INHALATION RT-QID PRN PRN Reason: Shortness Of Breath Midodrine [ProAmatine] 10 mg PO AC-TID #120 tab Fluticasone/Umeclidin/Vilanter [Trelegy Ellipta 100-62.5-25] 1 puff INHALATION RT-DAILY Magnesium Oxide [Mag-Ox] 800 mg PO BID@0530,1730 ALPRAZolam [Xanax] 0.5 mg PO DAILY@0530 #6 tab Discontinued Propranolol HCl 20 mg PO BID@0530,1730 Dicyclomine [Bentyl] 20 mg PO TID PRN PRN Reason: GI UPSET No Action HYDROcodone/APAP 5-325MG [[place] 5-325] 1 tab PO Q6HR PRN 3 Days #12 tab PRN Reason: Pain Discharge Medication List Ziprasidone [Geodon] 40 mg PO DAILY@0530 02/07/14 [History] Albuterol Inhaler [Ventolin Hfa Inhaler] 2 puff INHALATION RT-Q6H PRN 11/07/17 [History] Mesalamine [Delzicol] 800 mg PO TID@0530,1200,1730 11/07/17 [History] Albuterol Nebulized [Ventolin Nebulized] 2.5 mg INHALATION RT-QID PRN 07/03/22 [History] Atorvastatin Calcium [Lipitor] 40 mg PO HS@17307/03/22 [History] Levothyroxine Sodium [Synthroid] 112 mcg PO DAILY@0530 07/03/22 [History] Multivitamins, Thera [Multivitamin (formulary)] 1 tab PO DAILY@0530 07/03/22 [History] Ziprasidone [Geodon] 60 mg PO HS@17307/03/22 [History] buPROPion HCL [Wellbutrin SR] 200 mg PO BID@0530,17307/03/22 [History] Midodrine [ProAmatine] 10 mg PO AC-TID #120 tab 07/07/22 [Rx] Cyanocobalamin (Vitamin B-12) [Vitamin B-12] 1,000 mcg PO BID@0530,1730 01/15/23 [History] Fluticasone/Umeclidin/Vilanter [Trelegy Ellipta 100-62.5-25] 1 puff INHALATION RT-DAILY 01/15/23 [History] HYDROcodone/APAP 5-325MG [[place] 5-325] 1 tab PO Q6HR PRN 3 Days #12 tab 02/18/23 [Rx] Magnesium Oxide [Mag-Ox] 800 mg PO BID@0530,1730 02/27/23 [History] Pantoprazole [Protonix] 40 mg PO BID@0530,1730 02/27/23 [History] Sodium Bicarbonate Tab 650 mg PO BID@0530,1730 02/27/23 [History] HYDROcodone/APAP 5-325MG [[place] 5-325] 1 - 2 tab PO Q6HR PRN #32 tab 03/01/23 [Rx] ALPRAZolam [Xanax] 0.5 mg PO DAILY@0530 #6 tab 03/06/23 [Rx] Propranolol [Inderal] 10 mg PO 0530,1730 tab 03/06/23 [Rx] Tamsulosin [Flomax] 0.4 mg PO PC-BRKFST cap 03/06/23 [Rx] Vancomycin Oral Solution 125 mg PO Q6HR #100 ml 03/06/23 [Rx] Follow up Appointment(s)/Referral(s): Sylvester Saenz MD [Primary Care Provider] - 1-2 days Joanthan Zeng DO [Doctor of Osteopathic Medicine] - 03/14/23 1:30 pm Activity/Diet/Wound Care/Special Instructions: [facility] Weightbearing as tolerated with walker. Leave dressing intact. Dressing may be removed by home care nurse or by patient in 7 days. Then change dressing twice daily until follow up. May shower with initial dressing intact and after removal. If dressing become saturated, please remove. Anticoagulation per internal medicine recommendations. Recommend use of compression stockings daily until follow up to help prevent swelling and blood clots. May remove at night before sleeping. Please follow-up with [facility] in 2 weeks and call with any questions or concerns, . Please follow with the GI doctor who placed your biliary stent in December after discharge from rehab.
[2023-03-06 13:06] VITALS: BP 125/77; PULSE 85
== END 2023-03-06 14:02 | DRG 521 ==
LOC: EC 20:56 → 4SSUR 23:49
PROVIDERS: ADMIT Orthopaedic Surgery; ATTEND Orthopaedic Surgery
PROC: 0SRS01A Replacement of Left Hip Joint, Femoral Surface with Metal Synthetic Substitute, Uncemented, Open Approach (ICD-10-PCS; principal; 2023-02-28 07:30)
PROC: 05HA33Z Insertion of Infusion Device into Left Brachial Vein, Percutaneous Approach (ICD-10-PCS; 2023-03-02 12:25)
DX: S72.012A Unspecified intracapsular fracture of left femur, initial encounter for closed fracture (principal); A41.4 Sepsis due to anaerobes; A04.72 Enterocolitis due to Clostridium difficile, not specified as recurrent; K80.12 Calculus of gallbladder with acute and chronic cholecystitis without obstruction; J96.10 Chronic respiratory failure, unspecified whether with hypoxia or hypercapnia; M48.56XA Collapsed vertebra, not elsewhere classified, lumbar region, initial encounter for fracture; D62 Acute posthemorrhagic anemia; F31.5 Bipolar disorder, current episode depressed, severe, with psychotic features; J98.11 Atelectasis; G47.33 Obstructive sleep apnea (adult) (pediatric); J44.89 Other specified chronic obstructive pulmonary disease; E03.9 Hypothyroidism, unspecified; E78.5 Hyperlipidemia, unspecified; E83.42 Hypomagnesemia; E87.6 Hypokalemia; F41.9 Anxiety disorder, unspecified; I10 Essential (primary) hypertension; G89.29 Other chronic pain; M54.9 Dorsalgia, unspecified; K64.8 Other hemorrhoids; K76.9 Liver disease, unspecified; K21.9 Gastro-esophageal reflux disease without esophagitis; R33.9 Retention of urine, unspecified; R26.9 Unspecified abnormalities of gait and mobility; Z99.81 Dependence on supplemental oxygen; Z79.51 Long term (current) use of inhaled steroids; Z79.890 Hormone replacement therapy; Z79.899 Other long term (current) drug therapy; Z60.2 Problems related to living alone; Z74.1 Need for assistance with personal care; Z87.891 Personal history of nicotine dependence; Z85.528 Personal history of other malignant neoplasm of kidney; Z90.5 Acquired absence of kidney; W07.XXXA Fall from chair, initial encounter; Y92.030 Kitchen in apartment as the place of occurrence of the external cause; Z88.6 Allergy status to analgesic agent; Z88.5 Allergy status to narcotic agent; Z88.0 Allergy status to penicillin; Z88.2 Allergy status to sulfonamides
CPT/HCPCS: 36410; 36415; 51702; 64447; 71045; 72100; 73501; 73502; 76705; 76937; 80048; 80053; 81003; 82977; 83735; 84484; 85025; 85027; 85610; 86850; 86900; 86901; 87324; 93005; 94640; 94760; 96361; 96365; 96366; 96375; 99285

== ENCOUNTER 2023-03-14 06:18 | Inpatient (IN) | payer MEDICARE, OTHER ==
--- NOTE | 2023-03-14 06:35 | ED ---
SOB HPI - General Source: patient, EMS Mode of arrival: EMS Limitations: no limitations - History of Present Illness MD Complaint: shortness of breath, cough -: days(s) Consistency: constant Improves With: nothing Worsens With: nothing Known History Of: COPD <Bao Frank - Last Filed: 03/14/23 06:32> <Bharati Fabian - Last Filed: 03/14/23 15:58> - General Stated Complaint: SOB Time Seen by Provider: 03/14/23 06:25 - History of Present Illness Initial Comments: This patient is a 62-year-old woman with history of COPD who presents today by ambulance after having worsening shortness of breath. Patient states that over the course the past day she has been feeling short of breath, worse than usual. She states that her oxygen saturations were lower than usual on her usual home oxygen setting. She has had a cough without sputum. She has not noted fever or chills. No chest pain. The patient states that she is feeling a little better after EMS gave her a breathing treatment and they turned up the oxygen setting. (Bao Frank) - Related Data Home Medications Medication Instructions Recorded Confirmed Ziprasidone [Geodon] 40 mg PO DAILY@0530 02/07/14 03/14/23 Albuterol Inhaler [Ventolin Hfa 2 puff INHALATION RT-Q6H PRN 11/07/17 03/14/23 Inhaler] Mesalamine [Delzicol] 800 mg PO TID@0530,1200,1730 11/07/17 03/14/23 Albuterol Nebulized [Ventolin 2.5 mg INHALATION RT-QID PRN 07/03/22 03/14/23 Nebulized] Atorvastatin Calcium [Lipitor] 40 mg PO HS@1730 07/03/22 03/14/23 Levothyroxine Sodium [Synthroid] 112 mcg PO DAILY@0530 07/03/22 03/14/23 Multivitamins, Thera [Multivitamin 1 tab PO DAILY@0530 07/03/22 03/14/23 (formulary)] Ziprasidone [Geodon] 60 mg PO HS@1730 07/03/22 03/14/23 buPROPion HCL [Wellbutrin SR] 200 mg PO BID@0530,1730 07/03/22 03/14/23 Cyanocobalamin (Vitamin B-12) 1,000 mcg PO BID@0530,1730 01/15/23 03/14/23 [Vitamin B-12] Fluticasone/Umeclidin/Vilanter 1 puff INHALATION RT-DAILY 01/15/23 03/14/23 [Trelegy Ellipta 100-62.5-25] Magnesium Oxide [Mag-Ox] 800 mg PO BID@0530,1730 02/27/23 03/14/23 Pantoprazole [Protonix] 40 mg PO BID@0530,1730 02/27/23 03/14/23 Sodium Bicarbonate Tab 650 mg PO BID@0530,1730 02/27/23 03/14/23 HYDROcodone/APAP 7.5-325MG [[place] 1 tab PO TID PRN 03/14/23 03/14/23 7.5-325] Propranolol [Inderal] 20 mg PO BID@0530,1730 03/14/23 03/14/23 Vancomycin HCl [Vancocin HCl] 250 mg PO QID 03/14/23 03/14/23 Previous Rx's Medication Instructions Recorded Midodrine [ProAmatine] 10 mg PO AC-TID #120 tab 07/07/22 ALPRAZolam [Xanax] 0.5 mg PO DAILY@0530 #6 tab 03/06/23 Allergies Allergy/AdvReac Type Severity Reaction Status Date / Time codeine Allergy Rash/Hives Verified 03/14/23 06:37 Penicillins Allergy Rash/Hives Verified 03/14/23 06:37 on feet Sulfa (Sulfonamide Allergy Rash/Hives Verified 03/14/23 06:37 Antibiotics) ibuprofen [From Motrin] AdvReac Nausea & Verified 03/14/23 06:37 Vomiting Review of Systems ROS Other: All systems not noted in ROS Statement are negative. Constitutional: Denies: fever, chills Respiratory: Reports: cough, dyspnea, wheezes. Denies: hemoptysis, stridor Cardiovascular: Reports: edema (Left Leg). Denies: chest pain, palpitations, orthopnea, syncope Gastrointestinal: Denies: abdominal pain, nausea, vomiting, diarrhea, constipation Genitourinary: Denies: dysuria, hematuria Musculoskeletal: Denies: back pain Skin: Denies: rash Neurological: Denies: headache, weakness, numbness <Bao Frank - Last Filed: 03/14/23 06:32> ROS Other: All systems not noted in ROS Statement are negative. <Bharati Fabian - Last Filed: 03/14/23 15:58> ROS Statement: Those systems with pertinent positive or pertinent negative responses have been documented in the HPI. Past Medical History Past Medical History: Asthma, COPD, GERD/Reflux, Hyperlipidemia, Liver Disease, Sleep Apnea/CPAP/BIPAP Additional Past Medical History / Comment(s): hx internal hemorrhoid, kidney CA with right nephrectomy, CPAP use, colitis, IBS History of Any Multi-Drug Resistant Organisms: None Reported Past Surgical History: Hysterectomy Additional Past Surgical History / Comment(s): right nephrectomy 04/11/22 Past Anesthesia/Blood Transfusion Reactions: No Reported Reaction Past Psychological History: Anxiety, Bipolar, Depression Smoking Status: Former smoker Past Alcohol Use History: None Reported Past Drug Use History: None Reported <Bao Frank - Last Filed: 03/14/23 06:32> General Exam General appearance: alert, in no apparent distress Head exam: Present: atraumatic, normocephalic Eye exam: Present: normal appearance. Absent: scleral icterus, conjunctival injection ENT exam: Present: normal oropharynx Neck exam: Present: normal inspection Respiratory exam: Present: wheezes. Absent: respiratory distress, rales, rhonchi, stridor, accessory muscle use, decreased breath sounds Cardiovascular Exam: Present: regular rate, normal rhythm, normal heart sounds. Absent: systolic murmur, diastolic murmur, rubs, gallop GI/Abdominal exam: Present: soft. Absent: distended, tenderness, guarding, rebound, rigid, mass Extremities exam: Present: normal inspection, normal capillary refill, pedal edema (There is left leg edema to the pretibial area). Absent: calf tenderness Back exam: Absent: CVA tenderness (R), CVA tenderness (L) Neurological exam: Present: alert Skin exam: Present: warm, dry, intact, normal color. Absent: rash <Bao Frank - Last Filed: 03/14/23 06:32> Course Vital Signs 03/14/23 03/14/23 03/14/23 06:34 09:51 10:01 Temperature 96.9 F L Pulse Rate 82 92 89 Respiratory 20 Rate Blood Pressure 134/70 O2 Sat by Pulse 93 L Oximetry 03/14/23 03/14/23 03/14/23 13:01 15:00 15:35 Temperature Pulse Rate 94 89 88 Respiratory 18 18 Rate Blood Pressure 104/57 109/56 O2 Sat by Pulse 93 L 97 Oximetry Medical Decision Making - Lab Data Result diagrams: 03/14/23 06:28 03/14/23 07:39 <Bharati Fabian A - Last Filed: 03/14/23 15:58> - Medical Decision Making Was pt. sent in by a medical professional or institution (, PA, EDUCATION PROFESSOR, urgent care, hospital, or long term...) When possible be specific @ -No Did you speak to anyone other than the patient for history (EMS, parent, family, police, friend...)? What history was obtained from this source @ -EMS Did you review nursing and triage notes (agree or disagree)? Why? @ -I reviewed and agree with nursing and triage notes Were old charts reviewed (outside hosp., previous admission, EMS record, old EKG, old radiological studies, urgent care reports/EKG's, long term records)? Report findings @ -I reviewed patient's previous chart. She was hospitalized for a hip fracture recently Differential Diagnosis (chest pain, altered mental status, abdominal pain women, abdominal pain men, vaginal bleeding, weakness, fever, dyspnea, syncope, headache, dizziness, GI bleed, back pain, seizure, CVA, palpatations, mental health, musculoskeletal)? @ -Differential Dyspnea: Coronary syndrome, arrhythmia, tamponade, asthma, COPD, pulmonary embolism, pneumonia, pneumothorax, pulmonary effusion, anaphylaxis, diabetic ketoacidosis, flailed chest, pulmonary contusion, diaphragmatic rupture, anemia, neuromuscular, this is not meant to be an all-inclusive list. EKG interpreted by me (3pts min.). First EKG completed at 751 demonstrates a sinus rhythm with a rate of 81. UT interval 173. QRS 83. QTC 408. No ST segment elevation or depression Second EKG completed at 918 demonstrates sinus rhythm with a rate of 90. UT interval 167. QRS 81. QTC 407 X-rays interpreted by me (1pt min.). @ -Yes and demonstrates possible pneumonia CT interpreted by me (1pt min.). @ -Yes and there is no PE. U/S interpreted by me (1pt. min.). @ -None done What testing was considered but not performed or refused? (CT, X-rays, U/S, labs)? Why? @ -None What meds were considered but not given or refused? Why? @ -None Did you discuss the management of the patient with other professionals (professionals i.e. Dr., PA, EDUCATION PROFESSOR, lab, RT, psych nurse, social service technician, dampener operator, teacher, adult parole officer, director of casework services)? Give summary @ -Spoke with Dr. Francisco for admission Was smoking cessation discussed for >3mins.? @ -No Was critical care preformed (if so, how long)? @ -No Were there social determinants of health that impacted care today? How? (Homelessness, low income, unemployed, alcoholism, drug addiction, transportation, low edu. Level, literacy, decrease access to med. care, custodial, rehab)? @ -No Was there de-escalation of care discussed even if they declined (Discuss DNR or withdrawal of care, Hospice)? DNR status @ -No What co-morbidities impacted this encounter? (DM, HTN, Smoking, COPD, CAD, Cancer, CVA, ARF, Chemo, Hep., AIDS, mental health diagnosis, sleep apnea, morbid obesity)? @ -COPD Was patient admitted / discharged? Hospital course, mention meds given and route, prescriptions, significant lab abnormalities, going to OR and other pertinent info. @ -Admitted. Upon arrival patient was placed into room 6. She normally does not wear oxygen however is requiring 4 L at this time. I did attempt to turn her down to 3 L however she went hypoxic to 88%. Chest x-ray does demonstrate possible pneumonia and therefore did obtain blood cultures and started the patient on a dose of antibiotics. She is given a second breathing treatment here in the emergency department. Laboratory studies are conducted. As the patient is requiring oxygen I did recommend admission for which the patient did agree to. Spoke with Dr. Paulson for admission. Pulmonology will be placed on consult Undiagnosed new problem with uncertain prognosis? @ -No Drug Therapy requiring intensive monitoring for toxicity (Heparin, Nitro, Insulin, Cardizem)? @ -No Were any procedures done? @ -No Diagnosis/symptom? @ -Acute hypoxic respiratory failure, COPD exacerbation, possible community- acquired pneumonia, leukocytosis Acute, or Chronic, or Acute on Chronic? @ -Acute Uncomplicated (without systemic symptoms) or Complicated (systemic symptoms)? @ -Complicated Side effects of treatment? @ -No Exacerbation, Progression, or Severe Exacerbation? @ -Yes Poses a threat to life or bodily function? How? (Chest pain, [place], DC, pneumonia, PE, COPD, DKA, ARF, appy, cholecystitis, CVA, Diverticulitis, Homicidal, Suicidal, threat to staff... and all critical care pts) @ -Yes as patient is hypoxic (Bharati Fabian) - Lab Data Lab Results 03/14/23 03/14/23 03/14/23 Range/Units 06:28 06:28 06:28 WBC 16.3 H (3.8-10.6) k/uL RBC 3.56 L (3.80-5.40) m/uL Hgb 10.7 L (11.4-16.0) gm/dL Hct 34.9 (34.0-46.0) % MCV 98.0 (80.0-100.0) fL MCH 30.1 (25.0-35.0) pg MCHC 30.7 L (31.0-37.0) g/dL RDW 16.9 H (11.5-15.5) % Plt Count 522 H (150-450) k/uL MPV 8.7 Neutrophils % 84 % Lymphocytes % 11 % Monocytes % 4 % Eosinophils % 1 % Basophils % 0 % Neutrophils # 13.6 H (1.3-7.7) k/uL Lymphocytes # 1.7 (1.0-4.8) k/uL Monocytes # 0.6 (0-1.0) k/uL Eosinophils # 0.2 (0-0.7) k/uL Basophils # 0.1 (0-0.2) k/uL Hypochromasia Marked Anisocytosis Slight Macrocytosis Slight PT 10.5 (10.0-12.5) sec INR 0.9 (<1.2) APTT 24.8 (22.0-30.0) sec D-Dimer 2.30 H (<0.60) mg/L FEU Sodium (137-145) mmol/L Potassium (3.5-5.1) mmol/L Chloride (98-107) mmol/L Carbon Dioxide (22-30) mmol/L Anion Gap mmol/L BUN (7-17) mg/dL Creatinine (0.52-1.04) mg/dL Est GFR (CKD-EPI)AfAm (>60 ml/min/1.73 sqM) Est GFR (CKD-EPI)NonAf (>60 ml/min/1.73 sqM) Glucose (74-99) mg/dL Plasma Lactic Acid Jimmy 0.8 (0.7-2.0) mmol/L Calcium (8.4-10.2) mg/dL Total Bilirubin (0.2-1.3) mg/dL AST (14-36) U/L ALT (4-34) U/L Alkaline Phosphatase (38-126) U/L Troponin I (0.000-0.034) ng/mL NT-Pro-B Natriuret Pep pg/mL Total Protein (6.3-8.2) g/dL Albumin (3.5-5.0) g/dL Influenza Type A (PCR) (Not Detectd) Influenza Type B (PCR) (Not Detectd) RSV (PCR) (Not Detectd) SARS-CoV-2 (PCR) (Not Detectd) 03/14/23 03/14/23 03/14/23 Range/Units 06:31 07:39 07:39 WBC (3.8-10.6) k/uL RBC (3.80-5.40) m/uL Hgb (11.4-16.0) gm/dL Hct (34.0-46.0) % MCV (80.0-100.0) fL MCH (25.0-35.0) pg MCHC (31.0-37.0) g/dL RDW (11.5-15.5) % Plt Count (150-450) k/uL MPV Neutrophils % % Lymphocytes % % Monocytes % % Eosinophils % % Basophils % % Neutrophils # (1.3-7.7) k/uL Lymphocytes # (1.0-4.8) k/uL Monocytes # (0-1.0) k/uL Eosinophils # (0-0.7) k/uL Basophils # (0-0.2) k/uL Hypochromasia Anisocytosis Macrocytosis PT (10.0-12.5) sec INR (<1.2) APTT (22.0-30.0) sec D-Dimer (<0.60) mg/L FEU Sodium 138 (137-145) mmol/L Potassium 5.0 (3.5-5.1) mmol/L Chloride 104 (98-107) mmol/L Carbon Dioxide 29 (22-30) mmol/L Anion Gap 5 mmol/L BUN 16 (7-17) mg/dL Creatinine 0.89 (0.52-1.04) mg/dL Est GFR (CKD-EPI)AfAm 80 (>60 ml/min/1.73 sqM) Est GFR (CKD-EPI)NonAf 69 (>60 ml/min/1.73 sqM) Glucose 83 (74-99) mg/dL Plasma Lactic Acid Jimmy (0.7-2.0) mmol/L Calcium 8.3 L (8.4-10.2) mg/dL Total Bilirubin 0.8 (0.2-1.3) mg/dL AST 35 (14-36) U/L ALT 12 (4-34) U/L Alkaline Phosphatase 455 H (38-126) U/L Troponin I <0.012 (0.000-0.034) ng/mL NT-Pro-B Natriuret Pep 514 pg/mL Total Protein 5.8 L (6.3-8.2) g/dL Albumin 2.7 L (3.5-5.0) g/dL Influenza Type A (PCR) Not Detected (Not Detectd) Influenza Type B (PCR) Not Detected (Not Detectd) RSV (PCR) Not Detected (Not Detectd) SARS-CoV-2 (PCR) Not Detected (Not Detectd) Disposition <Bao Frank - Last Filed: 03/14/23 06:32> Is patient prescribed a controlled substance at d/c from ED?: No Time of Disposition: 09:28 Decision to Admit Reason: Admit from EC Decision Date: 03/14/23 Decision Time: :28 <Bharati Fabian - Last Filed: 03/14/23 15:58> Clinical Impression: Acute respiratory insufficiency, COPD exacerbation, CAP (community acquired pneumonia) Disposition: ADMITTED IP TO THIS HOSP Condition: Stable
[2023-03-14 07:22] LABS: Anisocytosis Slight; Basophils # (A) 0.1 k/uL (0-0.2); Basophils % (A) 0 %; Eosinophils # (A) 0.2 k/uL (0-0.7); Eosinophils % (A) 1 %; HCT 34.9 % (34.0-46.0); HGB 10.7 gm/dL (11.4-16.0); Hypochromasia Marked; Lymphocytes # (A) 1.7 k/uL (1.0-4.8); Lymphocytes % (A) 11 %; MCH 30.1 pg (25.0-35.0); MCHC 30.7 g/dL (31.0-37.0); Macrocytosis Slight; Mean Platelet Volume 8.7; Monocytes # (A) 0.6 k/uL (0-1.0); Monocytes % (A) 4 %; Neutrophils # (A) 13.6 k/uL (1.3-7.7); Neutrophils % (A) 84 %; Platelet Count 522 k/uL (150-450); RBC 3.56 m/uL (3.80-5.40); RDW 16.9 % (11.5-15.5); WBC 16.3 k/uL (3.8-10.6)
--- NOTE | 2023-03-14 07:29 | XR ---
EXAMINATION TYPE: XR chest 1V portable DATE OF EXAM: 03/14/2023 Comparison: 02/27/2023 Clinical History: 62 year-old female shortness of breath, dyspnea Findings: Heart borderline in size. Interstitial density. Increasing patchy left basilar opacity. Impression: Worsening patchy airspace disease at the left base. Pneumonia not excluded.
[2023-03-14 07:41] LABS: INR 0.9 (<1.2); Partial Thromboplastin Time 24.8 sec (22.0-30.0); Prothrombin Time 10.5 sec (10.0-12.5)
[2023-03-14 08:01] LABS: ALT 12 U/L (4-34); African American GFR (CKD) 80 (>60 ml/min/1.73 sqM); Albumin 2.7 g/dL (3.5-5.0); Anion Gap 5 mmol/L; Blood Urea Nitrogen 16 mg/dL (7-17); Carbon Dioxide 29 mmol/L (22-30); Chloride 104 mmol/L (98-107); Glucose 83 mg/dL (74-99); Non-African American GFR(CKD) 69 (>60 ml/min/1.73 sqM); Sodium 138 mmol/L (137-145); Total Bilirubin 0.8 mg/dL (0.2-1.3)
[2023-03-14 08:07] LABS: AST 35 U/L (14-36); Calcium 8.3 mg/dL (8.4-10.2); Total Protein 5.8 g/dL (6.3-8.2)
[2023-03-14 08:08] LABS: Alkaline Phosphatase 455 U/L (38-126)
[2023-03-14 08:09] LABS: NT-Pro-B-Type Natriuretic Pept 514 pg/mL
[2023-03-14] MEDS ORDERED: IPRATROPIUM-ALBUTEROL 3 ML NEB INHALATION STA (09:29)
[2023-03-14] MEDS ORDERED: methylPREDNISolone SOD SUCCI 125 MG/2 ML VIAL IV STA (09:30)
[2023-03-14] MEDS ORDERED: cefTRIAXone IN SWFI 1,000 MG/10 ML SYRINGE IVP STA (09:31)
[2023-03-14] MEDS ORDERED: AZITHROMYCIN 500 MG in SODIUM CHLORIDE 0.9% 250 ML IVPB STA (09:31)
[2023-03-14] MEDS ORDERED: NALOXONE 0.4 MG/ML 1 ML VIAL IV PRN (10:00)
--- NOTE | 2023-03-14 10:10 | CT ---
EXAMINATION TYPE: CT chest angio for PE CT DLP: 213.4 mGycm, Automated exposure control for dose reduction was used. DATE OF EXAM: 03/14/2023 8:58 AM COMPARISON: None. CLINICAL INDICATION:Female, 62 years old with history of elevated d-dimer, hypoxia; TECHNIQUE/CONTRAST: CTA scan of the thorax is performed with IV Contrast, patient injected with 100 mL of Isovue 370, mul tiplanar and MIP images are created on a separate workstation and reviewed. FINDINGS: Pulmonary Artery: There is no evidence for a filling defect within the pulmonary vasculature to sugge st acute pulmonary embolism. The pulmonary artery is enlarged, 3.4 cm. Vasculature: Mild atherosclerotic calcification of the aorta. No dissection. The ascending aorta is 3 .7 cm, descending aorta is 2.6 cm. Heart: The heart is mildly enlarged for size. No significant coronary calcifications. Mediastinum: No gross evidence of adenopathy. Airway: Central airways are patent. Lower neck: No significant findings. Soft Tissues: Small broad-based fat-containing hernia-like lesion measuring 19 x 14 mm and indenting the right latissimus, likely considerations include lipoma. Lungs/Pleura: No evidence of focal consolidation, pleural effusion or pneumothorax. Linear and bandli ke opacities in the lung bases, likely scarring and/or atelectasis. Multiple scattered pulmonary nodu lar densities bilaterally, mostly in the mid to lower lungs, most with ill-defined or angular margins . One of the largest is posterior subpleural within the superior segment left lower lobe measuring 14 x 8 mm series 406 image 62. Musculoskeletal: No acute bony abnormality. Mild diffuse degenerative changes. Upper Abdomen: Minimal pneumobilia seen in the left hepatic lobe without obvious cause, could be post operative. Heterogeneous spleen likely from phase of contrast. Partially seen thickening and nodulari ty of the left adrenal, and suspected cyst of the upper pole left kidney. No free intraperitoneal air . IMPRESSION: 1. No evidence of pulmonary embolism. 2. Enlarged pulmonary trunk, can be seen with pulmonary hypertension. 3. Linear and bandlike opacities in the lung bases, likely scarring and/or atelectasis. Multiple sca ttered pulmonary nodular densities bilaterally, nonspecific but favored to represent sequela of infec tious/inflammatory process. Follow-up CT chest in 4-6 months recommended to reassess. 4. Mild cardiomegaly without evidence of failure. 5. Other chronic and likely incidental findings, as described above.
[2023-03-14] MEDS: IPRATROPIUM-ALBUTEROL 3 ML NEB INHALATION SCH ×3 (11:43→20:36)
[2023-03-14] MEDS ORDERED: MORPHINE SULFATE 4 MG/ML SYRINGE IVP STA (14:02)
[2023-03-14] MEDS ORDERED: ALBUTEROL NEBULIZED 2.5 MG/3 ML INHALATION PRN (14:22)
[2023-03-14] MEDS: methylPREDNISolone SOD SUCCI 40 MG/ML 1 ML VIAL IV SCH ×2 (15:36→23:45)
--- NOTE | 2023-03-14 16:06 | P.HPIM ---
History of Present Illness H&P Date: 03/14/23 Patient is a 62-year-old female with a history of COPD, chronic hypoxic respiratory failure on 2 L nasal cannula, obstructive sleep apnea, recent left femoral neck fracture requiring surgical intervention, recent C. diff colitis, chronic cholecystitis, history of renal cancer status post nephrectomy presenting from home with worsening shortness of breath. Patient was recently admitted for hip fracture, had surgical intervention, was discharged to subacute rehab. She just by discharged back home on Monday, and started experiencing worsening shortness of breath this morning. She claims that she does have minor cough, with mild clear sputum production. She denies any fevers or chills. She denies any worsening diarrhea. She had only 1 bowel movement yesterday. In the ED, temperature was 96.9, pulse 82, respiratory rate 20, blood pressure 134/70, saturating at 93% on 4 L. WBC 16.3, hemoglobin 10.7 from baseline, platelet 522, d-dimer 2.3, creatinine 0.89, ALP 455, troponin negative, proBNP 514, respiratory viral panel negative. CTA showed no evidence of pulmonary embolism, enlarged pulmonary trunk likely in the setting of pulmonary hypertension, linear imbalance opacities in the lung bases likely scarring versus atelectasis, mild cardiomegaly. Chest x-ray independently interpreted, shows left basilar he opacity. EKG independently interpreted, shows normal sinus rhythm. Patient being admitted for COPD exacerbation, started on IV steroids, and bronchodilators. Was also given IV antibiotics in the ER. Pertinent positives and negatives as discussed in HPI, a complete review of systems was performed and all other systems are negative. Patient seen and examined at bedside. Vital signs reviewed General: nontoxic, no distress, appears at stated age, chronically ill-appearing Derm: warm, dry Head: atraumatic, normocephalic, symmetric Eyes: EOMI, no lid lag, anicteric sclera, pupils equal round reactive to light ENT: Nose and ears atraumatic Neck: No thyromegaly, supple Mouth: no lip lesion, mucus membranes moist Cardiovascular: S1S2 reg, no murmur, no edema Lungs: clear to auscultation bilateral, no rhonchi, no rales, no wheeze, no accessory muscle use, supplemental oxygen Abdominal: soft, nontender to palpation, no guarding, no appreciable organomegaly Ext: no gross muscle atrophy, muscle strength muscle strength 5 out of 5 in all 4 extremities, no contractures Neuro: CN II-XII grossly intact Psych: Alert, oriented, appropriate affect Assessment/Plan: Active: COPD exacerbation Acute on chronic hypoxic respiratory failure -Continue Solu-Medrol 40 mg IV every 8 hours -Continue as needed albuterol, every 4 hours DuoNeb -Continue home trelegy -Pulmonology consulted -Shortness of breath likely in the setting of atelectasis -Hold off giving further antibiotics for now -If patient has any other clinical signs of pneumonia, we'll resume antibiotics Recent left femoral neck fracture status post surgery Recent C. diff colitis - continue home oral vancomycin 250 4 times a day Chronic: Psychotic disorder History of chronic cholecystitis History of renal cancer status post nephrectomy The patient is admitted with an anticipated greater than 2 midnight stay as inpatien status for evaluation of COPD exacerbation. Surrogate decision-maker: JEREMY CODE STATUS:FC DVT prophylaxis: lovenox Anticipated discharge date: pending clinical course Anticipated discharge place: pending clinical course A total of 55 minutes was spent on the care of this complex patient more than 50% of the time was spent in counseling and care coordination. Past Medical History Past Medical History: Asthma, COPD, GERD/Reflux, Hyperlipidemia, Liver Disease, Sleep Apnea/CPAP/BIPAP Additional Past Medical History / Comment(s): hx internal hemorrhoid, kidney CA with right nephrectomy, CPAP use, colitis, IBS History of Any Multi-Drug Resistant Organisms: None Reported Past Surgical History: Hysterectomy Additional Past Surgical History / Comment(s): right nephrectomy 04/11/22 Past Anesthesia/Blood Transfusion Reactions: No Reported Reaction Past Psychological History: Anxiety, Bipolar, Depression Smoking Status: Former smoker Past Alcohol Use History: None Reported Past Drug Use History: None Reported Medications and Allergies Home Medications Medication Instructions Recorded Confirmed Type Ziprasidone [Geodon] 40 mg PO DAILY@0530 02/07/14 03/14/23 History Albuterol Inhaler [Ventolin Hfa 2 puff INHALATION RT-Q6H PRN 11/07/17 03/14/23 History Inhaler] Mesalamine [Delzicol] 800 mg PO TID@0530,1200,1730 11/07/17 03/14/23 History Albuterol Nebulized [Ventolin 2.5 mg INHALATION RT-QID PRN 07/03/22 03/14/23 History Nebulized] Atorvastatin Calcium [Lipitor] 40 mg PO HS@1730 07/03/22 03/14/23 History Levothyroxine Sodium [Synthroid] 112 mcg PO DAILY@0530 07/03/22 03/14/23 History Multivitamins, Thera [Multivitamin 1 tab PO DAILY@0530 07/03/22 03/14/23 History (formulary)] Ziprasidone [Geodon] 60 mg PO HS@1730 07/03/22 03/14/23 History buPROPion HCL [Wellbutrin SR] 200 mg PO BID@0530,1730 07/03/22 03/14/23 History Midodrine [ProAmatine] 10 mg PO AC-TID #120 tab 07/07/22 03/14/23 Rx Cyanocobalamin (Vitamin B-12) 1,000 mcg PO BID@0530,1730 01/15/23 03/14/23 History [Vitamin B-12] Fluticasone/Umeclidin/Vilanter 1 puff INHALATION RT-DAILY 01/15/23 03/14/23 History [Trelegy Ellipta 100-62.5-25] Magnesium Oxide [Mag-Ox] 800 mg PO BID@0530,1730 02/27/23 03/14/23 History Pantoprazole [Protonix] 40 mg PO BID@0530,1730 02/27/23 03/14/23 History Sodium Bicarbonate Tab 650 mg PO BID@0530,1730 02/27/23 03/14/23 History ALPRAZolam [Xanax] 0.5 mg PO DAILY@0530 #6 tab 03/06/23 03/14/23 Rx HYDROcodone/APAP 7.5-325MG [[place] 1 tab PO TID PRN 03/14/23 03/14/23 History 7.5-325] Propranolol [Inderal] 20 mg PO BID@0530,1730 03/14/23 03/14/23 History Vancomycin HCl [Vancocin HCl] 250 mg PO QID 03/14/23 03/14/23 History Allergies Allergy/AdvReac Type Severity Reaction Status Date / Time codeine Allergy Rash/Hives Verified 03/14/23 06:37 Penicillins Allergy Rash/Hives Verified 03/14/23 06:37 on feet Sulfa (Sulfonamide Allergy Rash/Hives Verified 03/14/23 06:37 Antibiotics) ibuprofen [From Motrin] AdvReac Nausea & Verified 03/14/23 06:37 Vomiting Physical Exam Vitals: Vital Signs Temp Pulse Resp BP Pulse Ox 03/14/23 13:01 94 18 104/57 93 L 03/14/23 10:01 89 03/14/23 09:51 92 03/14/23 06:34 96.9 F L 82 20 134/70 93 L Intake and Output 03/14/23 03/14/23 03/14/23 06:59 14:59 22:59 Other: Weight 58.967 kg Results CBC & Chem 7: 03/14/23 06:28 03/14/23 07:39 Labs: Abnormal Lab Results - Last 24 Hours (Table) 03/14/23 03/14/23 03/14/23 Range/Units 06:28 06:28 07:39 WBC 16.3 H (3.8-10.6) k/uL RBC 3.56 L (3.80-5.40) m/uL Hgb 10.7 L (11.4-16.0) gm/dL MCHC 30.7 L (31.0-37.0) g/dL RDW 16.9 H (11.5-15.5) % Plt Count 522 H (150-450) k/uL Neutrophils # 13.6 H (1.3-7.7) k/uL D-Dimer 2.30 H (<0.60) mg/L FEU Calcium 8.3 L (8.4-10.2) mg/dL Alkaline Phosphatase 455 H (38-126) U/L Total Protein 5.8 L (6.3-8.2) g/dL Albumin 2.7 L (3.5-5.0) g/dL
[2023-03-14] MEDS: MULTIVITAMINS, THERA 1 EACH TAB PO SCH (17:18)
[2023-03-14] MEDS: ATORVASTATIN 40 MG TAB PO SCH (17:18)
[2023-03-14] MEDS: MAGNESIUM OXIDE 400 MG TAB PO SCH (17:18)
[2023-03-14] MEDS: PANTOPRAZOLE 40 MG TABLET PO SCH (17:18)
[2023-03-14] MEDS: ZIPRASIDONE 40 MG CAP PO SCH (17:18)
[2023-03-14] MEDS: MIDODRINE 5 MG TAB PO SCH (17:19)
[2023-03-14] MEDS: buPROPion SR 100 MG TABLET.ER PO SCH (17:19)
[2023-03-14] MEDS: BALSALAZIDE DISODIUM 750 MG CAPSULE PO SCH (17:19)
[2023-03-14] MEDS: PROPRANOLOL 20 MG TAB PO SCH (17:24)
[2023-03-14] MEDS: SODIUM BICARBONATE TAB 650 MG TAB PO SCH (17:24)
[2023-03-14] MEDS: ZIPRASIDONE 60 MG CAP PO SCH (17:26)
[2023-03-14] MEDS: VANCOMYCIN 125 MG CAPSULE PO SCH ×2 (17:55→22:47)
[2023-03-14] MEDS: HYDROcodone/APAP 7.5-325MG 1 EACH TAB PO PRN (18:24)
--- NOTE | 2023-03-14 19:49 | P.CNPUL ---
History of Present Illness Consult date: 03/14/23 Reason for consult: dyspnea, COPD History of present illness: 59-year-old female patient with known history of COPD with an FEV1 of 60% of predicted and obstructive sleep apnea maintain on CPAP therapy at a pressure of 12 cm of water. The patient is an ex-smoker. The patient has a history of a renal cell carcinoma and she is undergone a previous right nephrectomy followed by targeted therapy. The patient has history of hypothyroidism and acid reflux. The patient has had previous hospitalizations for COPD exacerbation. Note that the patient was recently discharged from the hospital following a fall. At that time, the patient was found to have a left displaced femoral neck fracture. The patient underwent a left hip hemiarthroplasty on 02/28/2023 and the procedure was done without any sequelae. The patient was also found to have a L1 compression fracture following the fall and she was advised to take a TLSO brace. She was discharged home on [place] for pain control. She also was found to have C. diff colitis and the patient was discharged home on oral vancomycin. The patient presented to the hospital because of ongoing lower back pain. She also complained of worsening shortness of breath. She reported some minor cough . Minimal amount of sputum production. No reported fever or chills. The diarrhea subsided. She has completed her course of oral vancomycin. In the emergency department, the patient was afebrile and hemodynamically stable. CT antigram of the chest was done and showed no evidence of any pulmonary embolism. There was some atelectatic change in lung base bilaterally along with some mild cardiomegaly. EKG showed normal sinus rhythm. The patient was has less for an acute COPD exacerbation. At this point in time, the WBC count is 16 with a hemoglobin 10.7 and a platelet count of 522. Troponins are negative, the sodium is at 138, potassium is at 5, BUN is at 60 with a creatinine of 0.8. The viral screen was essentially negative. ProBNP level was 514. D-dimer was at 2.3. She is currently on oxygen at 4 L/m nasal cannula. Denies having any significant shortness of breath at rest. Review of Systems Constitutional: Reports as per HPI Eyes: denies as per HPI, denies blurred vision, denies bulging eye, denies decreased vision, denies diplopia, denies discharge, denies dry eye, denies irritation, denies itching, denies pain, denies photophobia, denies loss of peripheral vision, denies loss of vision, denies tunnel vision/blind spots Ears: deny: decreased hearing, ear discharge, earache, tinnitus Ears, nose, mouth and throat: Reports as per HPI Breasts: absent: as per HPI, change in shape, gynecomastia, masses, nipple discharge, pain, skin changes, swelling Cardiovascular: Reports decreased exercise tolerance, Reports dyspnea on exertion Respiratory: Reports cough, Reports dyspnea, Reports home oxygen, Reports sleep apnea, Reports wheezing Gastrointestinal: Reports as per HPI Genitourinary: Reports as per HPI Menstruation: Reports as per HPI Musculoskeletal: Reports gait dysfunction, Reports low back pain Musculoskeletal: absent: ankle pain, ankle stiffness, ankle swelling, as per HPI, elbow pain, elbow stiffness, elbow swelling, foot pain, foot stiffness, foot swelling, hand pain, hand stiffness, hand swelling, hip pain, hip stiffness, hip swelling, knee pain, knee stiffness, knee swelling, shoulder pain, shoulder stiffness, shoulder swelling, wrist pain, wrist stiffness, wrist swelling Integumentary: Reports as per HPI Neurological: Reports as per HPI Psychiatric: Reports as per HPI Endocrine: Reports as per HPI Past Medical History Past Medical History: Asthma, COPD, GERD/Reflux, Hyperlipidemia, Liver Disease, Sleep Apnea/CPAP/BIPAP Additional Past Medical History / Comment(s): hx internal hemorrhoid, kidney CA with right nephrectomy, CPAP use, colitis, IBS History of Any Multi-Drug Resistant Organisms: None Reported Past Surgical History: Hysterectomy Additional Past Surgical History / Comment(s): right nephrectomy 04/11/22 Past Anesthesia/Blood Transfusion Reactions: No Reported Reaction Past Psychological History: Anxiety, Bipolar, Depression Smoking Status: Former smoker Past Alcohol Use History: None Reported Past Drug Use History: None Reported Medications and Allergies Home Medications Medication Instructions Recorded Confirmed Type Ziprasidone [Geodon] 40 mg PO DAILY@0530 02/07/14 03/14/23 History Albuterol Inhaler [Ventolin Hfa 2 puff INHALATION RT-Q6H PRN 11/07/17 03/14/23 History Inhaler] Mesalamine [Delzicol] 800 mg PO TID@0530,1200,1730 11/07/17 03/14/23 History Albuterol Nebulized [Ventolin 2.5 mg INHALATION RT-QID PRN 07/03/22 03/14/23 History Nebulized] Atorvastatin Calcium [Lipitor] 40 mg PO HS@1730 07/03/22 03/14/23 History Levothyroxine Sodium [Synthroid] 112 mcg PO DAILY@0530 07/03/22 03/14/23 History Multivitamins, Thera [Multivitamin 1 tab PO DAILY@0530 07/03/22 03/14/23 History (formulary)] Ziprasidone [Geodon] 60 mg PO HS@1730 07/03/22 03/14/23 History buPROPion HCL [Wellbutrin SR] 200 mg PO BID@0530,1730 07/03/22 03/14/23 History Midodrine [ProAmatine] 10 mg PO AC-TID #120 tab 07/07/22 03/14/23 Rx Cyanocobalamin (Vitamin B-12) 1,000 mcg PO BID@0530,1730 01/15/23 03/14/23 History [Vitamin B-12] Fluticasone/Umeclidin/Vilanter 1 puff INHALATION RT-DAILY 01/15/23 03/14/23 History [Trelegy Ellipta 100-62.5-25] Magnesium Oxide [Mag-Ox] 800 mg PO BID@0530,1730 02/27/23 03/14/23 History Pantoprazole [Protonix] 40 mg PO BID@0530,1730 02/27/23 03/14/23 History Sodium Bicarbonate Tab 650 mg PO BID@0530,1730 02/27/23 03/14/23 History ALPRAZolam [Xanax] 0.5 mg PO DAILY@0530 #6 tab 03/06/23 03/14/23 Rx HYDROcodone/APAP 7.5-325MG [[place] 1 tab PO TID PRN 03/14/23 03/14/23 History 7.5-325] Propranolol [Inderal] 20 mg PO BID@0530,1730 03/14/23 03/14/23 History Vancomycin HCl [Vancocin HCl] 250 mg PO QID 03/14/23 03/14/23 History Allergies Allergy/AdvReac Type Severity Reaction Status Date / Time codeine Allergy Rash/Hives Verified 12/26/23 06:37 Penicillins Allergy Rash/Hives Verified 03/14/23 06:37 on feet Sulfa (Sulfonamide Allergy Rash/Hives Verified 03/14/23 06:37 Antibiotics) ibuprofen [From Motrin] AdvReac Nausea & Verified 03/14/23 06:37 Vomiting Physical Exam Vitals: Vital Signs Temp Pulse Resp BP Pulse Ox 03/14/23 18:00 99 18 108/62 92 L 03/14/23 17:00 98 17 106/58 93 L 03/14/23 15:53 93 03/14/23 15:35 88 03/14/23 15:00 89 18 109/56 97 03/14/23 13:01 94 18 104/57 93 L 03/14/23 10:01 89 03/14/23 09:51 92 03/14/23 06:34 96.9 F L 82 20 134/70 93 L Intake and Output 03/14/23 03/14/23 03/14/23 06:59 14:59 22:59 Other: Weight 58.967 kg General: nontoxic, no distress, appears at stated age, chronically ill- appearing, the patient is currently on 4 L of oxygen nasal cannula with a pulse ox of 92% Derm: warm, dry Head: atraumatic, normocephalic, symmetric Eyes: EOMI, no lid lag, anicteric sclera, pupils equal round reactive to light ENT: Nose and ears atraumatic Neck: No thyromegaly, supple Mouth: no lip lesion, mucus membranes moist Cardiovascular: S1S2 reg, no murmur, no edema Lungs: clear to auscultation bilateral, no rhonchi, no rales, no wheeze, no accessory muscle use, supplemental oxygen, diminished breath sounds bilaterally along with scattered expiratory wheeze Abdominal: soft, nontender to palpation, no guarding, no appreciable organome zan Ext: no gross muscle atrophy, muscle strength muscle strength 5 out of 5 in all 4 extremities, no contractures Neuro: CN II-XII grossly intact Psych: Alert, oriented, appropriate affect Results - Laboratory Findings CBC and BMP: 03/14/23 06:28 03/14/23 07:39 PT/INR, D-dimer PT 10.5 sec (10.0-12.5) 03/14/23 06:28 INR 0.9 (<1.2) 03/14/23 06:28 D-Dimer 2.30 mg/L FEU (<0.60) H 03/14/23 06:28 Abnormal lab findings: Abnormal Labs 03/14/23 03/14/23 03/14/23 06:28 06:28 07:39 WBC 16.3 H RBC 3.56 L Hgb 10.7 L MCHC 30.7 L RDW 16.9 H Plt Count 522 H Neutrophils # 13.6 H D-Dimer 2.30 H Calcium 8.3 L Alkaline Phosphatase 455 H Total Protein 5.8 L Albumin 2.7 L - Diagnostic Findings Chest x-ray: image reviewed CT scan - chest: image reviewed Assessment and Plan Plan: Acute exacerbation of chronic COPD, CT antigram shows no evidence of any pulmonary embolism. This is despite a mildly elevated d-dimer. There is some atelectatic change in lung bases. No clear consolidation or pneumonia Acute on chronic hypoxic respiratory failure, currently on 40 the Bactrim by nasal cannula Chronic COPD with an FEV1 of 60% of predicted at baseline History of obstructive sleep apnea maintain on CPAP therapy at a pressure of 12 cm of water and the patient has a baseline AHI of 16 Subcentimeter pulmonary nodule and earlier CAT scan of the chest on 07/04/2022 showed a few pulmonary nodules measuring up to 8 mm in size. These nodules within the left upper lobe right lower lobe and the right upper lobe. The repeat CAT scan of the chest that was done on 03/14/2023 showed a 14 x 8 mm subpleural lesion in the superior segment of the left lower lobe. Pulmonary nod ules need to be followed up on outpatient basis History of renal cell carcinoma, patient underwent an nephrectomy at [facility] on April 11, 2022, due to reported renal carcinoma. Patient is currently taking combination of Cabometyx and Nivolumab. Recent fall with a left displaced femoral neck fracture and the patient underwent a left hip arthroplasty on 02/28/2023. L1 compression fracture, offered a TLSO brace with ongoing chronic back pain C. diff colitis, treated with oral vancomycin, currently inactive and stable Hypothyroidism Acid reflux Leukocytosis, nonspecific Elevated d-dimer, nonspecific and a CT angiogram showed no evidence of any pulmonary embolism Plan Avoid the use of antibiotic especially with recent C. diff colitis Complete the course of oral vancomycin Subjective patient with DuoNeb updrafts along with IV Solu-Medrol Lovenox 40 mg subcu for DVT prophylaxis Wean down FiO2 as tolerated to maintain saturation above 90% Loud the patient utilizes her CPAP machine from home Plan control TLSO brace
[2023-03-15] MEDS: IPRATROPIUM-ALBUTEROL 3 ML NEB INHALATION SCH ×6 (00:44→21:47)
[2023-03-15] MEDS: HYDROcodone/APAP 7.5-325MG 1 EACH TAB PO PRN ×3 (01:55→17:27)
[2023-03-15] MEDS: PANTOPRAZOLE 40 MG TABLET PO SCH ×2 (05:43→17:28)
[2023-03-15] MEDS: ALPRAZolam 0.5 MG TAB PO SCH (05:43)
[2023-03-15] MEDS: SODIUM BICARBONATE TAB 650 MG TAB PO SCH ×2 (05:43→17:26)
[2023-03-15] MEDS: MAGNESIUM OXIDE 400 MG TAB PO SCH ×2 (05:43→17:26)
[2023-03-15] MEDS: BALSALAZIDE DISODIUM 750 MG CAPSULE PO SCH ×3 (05:43→17:26)
[2023-03-15] MEDS: LEVOTHYROXINE 112 MCG TAB PO SCH (05:44)
[2023-03-15] MEDS: buPROPion SR 100 MG TABLET.ER PO SCH ×2 (05:44→17:26)
[2023-03-15] MEDS: PROPRANOLOL 20 MG TAB PO SCH ×2 (05:50→17:29)
[2023-03-15] MEDS: MIDODRINE 5 MG TAB PO SCH ×3 (05:55→17:28)
[2023-03-15] MEDS ORDERED: NON FORMULARY DRUG (Fluticasone/Umeclidin/Vilanter [Trelegy Ellipta 100-62.5-25] 1 EACH Bl INHALATION SCH (08:00)
[2023-03-15 08:35] LABS: Basophils # (A) 0.05 X 10*3/uL (0.00-0.10); Basophils % (A) 0.3 %; Eosinophils # (A) 0 X 10*3/uL (0.04-0.35); Eosinophils % (A) 0 %; HCT 30.4 % (37.2-46.3); HGB 9.1 g/dL (12.0-15.0); Lymphocytes # (A) 1.23 X 10*3/uL (0.90-5.00); Lymphocytes % (A) 6.8 %; MCH 29.3 pg (27.0-32.0); MCHC 29.9 g/dL (32.0-37.0); MCV 97.7 FL (80.0-97.0); Mean Platelet Volume 10.5 FL (9.5-12.2); Monocytes # (A) 0.27 X 10*3/uL (0.20-1.00); Monocytes % (A) 1.5 %; NRBC Per 100 WBC 0 X 10*3/uL (0.00-0.01); Neutrophils # (A) 16.33 X 10*3/uL (1.80-7.70); Neutrophils % (A) 90.8 %; Platelet Count 540 X 10*3/uL (140-440); RBC 3.11 X 10*6/uL (4.10-5.20); RDW 17.3 % (11.5-14.5); WBC 17.99 X 10*3/uL (4.50-10.00)
[2023-03-15 08:42] LABS: Blood Urea Nitrogen 16.7 mg/dL (9.0-27.0); Calcium 8.6 mg/dL (8.7-10.3); Carbon Dioxide 28.6 mmol/L (21.6-31.8); Chloride 105 mmol/L (96-109); Glucose 98 mg/dL (70-110); Potassium 4.9 mmol/L (3.5-5.5); Sodium 141 mmol/L (135-145)
[2023-03-15] MEDS: methylPREDNISolone SOD SUCCI 40 MG/ML 1 ML VIAL IV SCH ×2 (09:28→17:26)
[2023-03-15] MEDS: ENOXAPARIN 40 MG/0.4 ML SYRINGE SQ SCH (09:29)
[2023-03-15] MEDS: VANCOMYCIN 125 MG CAPSULE PO SCH ×4 (09:30→20:54)
[2023-03-15] MEDS: SYMBICORT 80-4.5 MCG INHALER INHALATION SCH ×3 (09:33→21:47)
--- NOTE | 2023-03-15 13:56 | P.PN ---
Subjective Progress Note Date: 03/15/23 59-year-old female patient with known history of COPD with an FEV1 of 60% of predicted and obstructive sleep apnea maintain on CPAP therapy at a pressure of 12 cm of water. The patient is an ex-smoker. The patient has a history of a renal cell carcinoma and she is undergone a previous right nephrectomy followed by targeted therapy. The patient has history of hypothyroidism and acid reflux. The patient has had previous hospitalizations for COPD exacerbation. Note that the patient was recently discharged from the hospital following a fall. At that time, the patient was found to have a left displaced femoral neck fracture. The patient underwent a left hip hemiarthroplasty on 02/28/2023 and the procedure was done without any sequelae. The patient was also found to have a L1 compression fracture following the fall and she was advised to take a TLSO brace. She was discharged home on [place] for pain control. She also was found to have C. diff colitis and the patient was discharged home on oral vancomycin. The patient presented to the hospital because of ongoing lower back pain. She also complained of worsening shortness of breath. She reported some minor cough. Minimal amount of sputum production. No reported fever or chills. The diarrhea subsided. She has completed her course of oral vancomycin. In the emergency department, the patient was afebrile and hemodynamically stable. CT antigram of the chest was done and showed no evidence of any pulmonary embolism. There was some atelectatic change in lung base bilaterally along with some mild cardiomegaly. EKG showed normal sinus rhythm. The patient was has less for an acute COPD exacerbation. At this point in time, the WBC count is 16 with a hemoglobin 10.7 and a platelet count of 522. Troponins are negative, the sodium is at 138, potassium is at 5, BUN is at 60 with a creatinine of 0.8. The viral screen was essentially negative. ProBNP level was 514. D-dimer was at 2.3. She is currently on oxygen at 4 L/m nasal cannula. Denies having any significant shortness of breath at rest. On today's evaluation of 03/15/2023, the patient is feeding slightly improved compared to yesterday. She is down to 3 L of oxygen by nasal cannula pH images bronchus spastic and wheezy. She still on bronchodilators. She is also on IV Solu-Medrol. Noted the patient is on Trelegy Ellipta on outpatient basis and currently she is on Symbicort. She is completing a course of vancomycin for C. diff colitis features taking oral vancomycin on 50 mg by mouth 4 times a day. No active diarrhea at this point in time. She is on Lovenox for DVT prophylaxis. Labs from today shows a white cell count of 17, hemoglobin was 9. 1, sodium is at 141, potassium is at 4.9, BUN is at 60 with a creatinine of 1.0. Objective - Vital Signs Vital signs: Vital Signs Temp 97.5 F L 03/15/23 07:12 Pulse 80 03/15/23 09:47 Resp 19 03/15/23 07:12 BP 93/55 03/15/23 07:12 Pulse Ox 96 03/15/23 09:33 FiO2 Intake & Output 03/14/23 03/15/23 03/15/23 18:59 06:59 18:59 Output Total 250 Balance -250 Weight 58.967 kg Output: Urine 250 Other: # Voids 1 # Bowel Movements 1 - Exam General: nontoxic, no distress, appears at stated age, chronically ill- appearing, the patient is currently on 3 L of oxygen nasal cannula with a pulse ox of 92% Derm: warm, dry Head: atraumatic, normocephalic, symmetric Eyes: EOMI, no lid lag, anicteric sclera, pupils equal round reactive to light ENT: Nose and ears atraumatic Neck: No thyromegaly, supple Mouth: no lip lesion, mucus membranes moist Cardiovascular: S1S2 reg, no murmur, no edema Lungs: clear to auscultation bilateral, no rhonchi, no rales, no wheeze, no accessory muscle use, supplemental oxygen, diminished breath sounds bilaterally along with scattered expiratory wheeze Abdominal: soft, nontender to palpation, no guarding, no appreciable organomegaly Ext: no gross muscle atrophy, muscle strength muscle strength 5 out of 5 in all 4 extremities, no contractures Neuro: CN II-XII grossly intact Psych: Alert, oriented, appropriate affect - Labs CBC & Chem 7: 03/15/23 05:15 03/15/23 05:15 Labs: Abnormal Lab Results - Last 24 Hours (Table) 03/15/23 03/15/23 Range/Units 05:15 05:15 WBC 17.99 H (4.50-10.00) X 10*3/uL RBC 3.11 L (4.10-5.20) X 10*6/uL Hgb 9.1 L (12.0-15.0) g/dL Hct 30.4 L (37.2-46.3) % MCV 97.7 H (80.0-97.0) FL MCHC 29.9 L (32.0-37.0) g/dL RDW 17.3 H (11.5-14.5) % Plt Count 540 H (140-440) X 10*3/uL Immature Gran # 0.11 H (0.00-0.04) X 10*3/uL Neutrophils # 16.33 H (1.80-7.70) X 10*3/uL Eosinophils # 0 L (0.04-0.35) X 10*3/uL Calcium 8.6 L (8.7-10.3) mg/dL Assessment and Plan Plan: Acute exacerbation of chronic COPD, CT antigram shows no evidence of any pulmonary embolism. This is despite a mildly elevated d-dimer. There is some atelectatic change in lung bases. No clear consolidation or pneumonia Acute on chronic hypoxic respiratory failure, currently on 40 the Bactrim by nasal cannula Chronic COPD with an FEV1 of 60% of predicted at baseline History of obstructive sleep apnea maintain on CPAP therapy at a pressure of 12 cm of water and the patient has a baseline AHI of 16 Subcentimeter pulmonary nodule and earlier CAT scan of the chest on 07/04/2022 showed a few pulmonary nodules measuring up to 8 mm in size. These nodules within the left upper lobe right lower lobe and the right upper lobe. The repeat CAT scan of the chest that was done on 03/14/2023 showed a 14 x 8 mm subpleural lesion in the superior segment of the left lower lobe. Pulmonary nodules need to be followed up on outpatient basis History of renal cell carcinoma, patient underwent an nephrectomy at [facility] on April 11, 2022, due to reported renal carcinoma. Patient is currently taking combination of Cabometyx and Nivolumab. Recent fall with a left displaced femoral neck fracture and the patient underwent a left hip arthroplasty on 02/28/2023. L1 compression fracture, offered a TLSO brace with ongoing chronic back pain C. diff colitis, treated with oral vancomycin, currently inactive and stable Hypothyroidism Acid reflux Leukocytosis, nonspecific Elevated d-dimer, nonspecific and a CT angiogram showed no evidence of any pulmonary embolism Plan Oxygen she continues to improve and the patient is down to 3 L of oxygen by nasal cannula We'll continue same treatment as the patient is still bronchospastic and wheezy Avoid the use of antibiotic especially with recent C. diff colitis Complete the course of oral vancomycin Keep the patient with DuoNeb updrafts along with IV Solu-Medrol Lovenox 40 mg subcu for DVT prophylaxis Allow the patient utilizes her CPAP machine from home Pain control TLSO brace
--- NOTE | 2023-03-15 15:35 | P.PN ---
Subjective Progress Note Date: 03/15/23 Hospital Course: 62-year-old female with a history of COPD, chronic hypoxic respiratory failure on 2 L nasal cannula, obstructive sleep apnea, recent left femoral neck fracture requiring surgical intervention, recent C. diff colitis, chronic cholecystitis, history of renal cancer status post nephrectomy presenting from home with worsening shortness of breath. In the ED, temperature was 96.9, pulse 82, respiratory rate 20, blood pressure 134/70, saturating at 93% on 4 L. WBC 16.3, hemoglobin 10.7 from baseline, platelet 522, d-dimer 2.3, creatinine 0.89, ALP 455, troponin negative, proBNP 514, respiratory viral panel negative. CTA showed no evidence of pulmonary embolism, enlarged pulmonary trunk likely in the setting of pulmonary hypertension, linear imbalance opacities in the lung bases likely scarring versus atelectasis, mild cardiomegaly. Chest x-ray independently interpreted, shows left basilar he opacity. EKG independently interpreted, shows normal sinus rhythm. Patient being admitted for COPD exacerbation, started on IV steroids, and bronchodilators. Respiratory function improving. Subjective: Patient seen and examined at bedside. Denies any new complaints, no acute events overnight. Respiratory function improving. Pertinent positives and negatives as discussed above, a complete review of systems was performed and all other systems are negative. Vitals Signs Reviewed. General: nontoxic, no distress, appears at stated age, chronically ill-appearing Derm: warm, dry Head: atraumatic, normocephalic, symmetric Eyes: EOMI, no lid lag, anicteric sclera, pupils equal round reactive to light ENT: Nose and ears atraumatic Neck: No thyromegaly, supple Mouth: no lip lesion, mucus membranes moist Cardiovascular: S1S2 reg, no murmur, no edema Lungs: Scattered wheeze, no accessory muscle use, supplemental oxygen Abdominal: soft, nontender to palpation, no guarding, no appreciable organomegaly Ext: no gross muscle atrophy, muscle strength muscle strength 5 out of 5 in all 4 extremities, no contractures Neuro: CN II-XII grossly intact Psych: Alert, oriented, appropriate affect Data Reviewed Today: Pertinent Labs: WBC 17.99, hemoglobin 9.1, creatinine 1 Imaging: no new imaging Assessment and Plan: Patient needs close monitoring. prognosis guarded. COPD exacerbation Acute on chronic hypoxic respiratory failure resolving Leukocytosis, reactive and steroid-induced -Continue Solu-Medrol 40 mg IV every 8 hours -Continue as needed albuterol, every 4 hours DuoNeb -Continue home trelegy -Pulmonology note reviewed, continue supportive care -Shortness of breath likely in the setting of atelectasis -Hold off giving further antibiotics for now as patient recently had C. diff colitis. -If patient has any other clinical signs of pneumonia, we'll resume antibiotics Recent left femoral neck fracture status post surgery Recent C. diff colitis - continue home oral vancomycin 250 4 times a day Chronic: Psychotic disorder History of chronic cholecystitis History of renal cancer status post nephrectomy DVT ppx: lovenox Code status: FC Anticipated discharge place: home Anticipated discharge time: pending clinical course Objective - Vital Signs Vital signs: Vital Signs Temp 97.7 F 03/15/23 14:49 Pulse 113 H 03/15/23 14:49 Resp 20 03/15/23 14:49 BP 105/65 03/15/23 14:49 Pulse Ox 91 L 03/15/23 14:49 FiO2 Intake & Output 03/14/23 03/15/23 03/15/23 18:59 06:59 18:59 Output Total 250 Balance -250 Weight 58.967 kg Output: Urine 250 Other: # Voids 1 # Bowel Movements 1 - Labs CBC & Chem 7: 03/15/23 05:15 03/15/23 05:15 Labs: Abnormal Lab Results - Last 24 Hours (Table) 03/15/23 03/15/23 Range/Units 05:15 05:15 WBC 17.99 H (4.50-10.00) X 10*3/uL RBC 3.11 L (4.10-5.20) X 10*6/uL Hgb 9.1 L (12.0-15.0) g/dL Hct 30.4 L (37.2-46.3) % MCV 97.7 H (80.0-97.0) FL MCHC 29.9 L (32.0-37.0) g/dL RDW 17.3 H (11.5-14.5) % Plt Count 540 H (140-440) X 10*3/uL Immature Gran # 0.11 H (0.00-0.04) X 10*3/uL Neutrophils # 16.33 H (1.80-7.70) X 10*3/uL Eosinophils # 0 L (0.04-0.35) X 10*3/uL Calcium 8.6 L (8.7-10.3) mg/dL
[2023-03-15] MEDS: ATORVASTATIN 40 MG TAB PO SCH (17:28)
[2023-03-15] MEDS: ZIPRASIDONE 60 MG CAP PO SCH (17:29)
[2023-03-15] MEDS ORDERED: ZINC OXIDE PASTE (Z-GUARD) 1 APPLIC TOPICAL ONE (17:58)
[2023-03-15] MEDS: MORPHINE SULFATE 4 MG/ML SYRINGE IVP PRN (21:34)
[2023-03-16] MEDS: IPRATROPIUM-ALBUTEROL 3 ML NEB INHALATION SCH ×6 (00:57→18:34)
[2023-03-16] MEDS: methylPREDNISolone SOD SUCCI 40 MG/ML 1 ML VIAL IV SCH ×4 (01:16→23:08)
[2023-03-16] MEDS: HYDROcodone/APAP 7.5-325MG 1 EACH TAB PO PRN ×3 (02:24→14:46)
[2023-03-16] MEDS: MULTIVITAMINS, THERA 1 EACH TAB PO SCH (06:10)
[2023-03-16] MEDS: MAGNESIUM OXIDE 400 MG TAB PO SCH ×2 (06:10→17:46)
[2023-03-16] MEDS: PANTOPRAZOLE 40 MG TABLET PO SCH ×2 (06:10→17:46)
[2023-03-16] MEDS: SODIUM BICARBONATE TAB 650 MG TAB PO SCH ×2 (06:10→17:46)
[2023-03-16] MEDS: LEVOTHYROXINE 112 MCG TAB PO SCH (06:11)
[2023-03-16] MEDS: buPROPion SR 100 MG TABLET.ER PO SCH ×2 (06:12→17:47)
[2023-03-16] MEDS: PROPRANOLOL 20 MG TAB PO SCH ×2 (06:12→17:46)
[2023-03-16] MEDS: BALSALAZIDE DISODIUM 750 MG CAPSULE PO SCH ×3 (06:13→17:47)
[2023-03-16 06:54] LABS: Anisocytosis Slight; Basophils % (A) 0 %; Eosinophils % (A) 0 %; HCT 32.7 % (34.0-46.0); HGB 9.8 gm/dL (11.4-16.0); Hypochromasia Marked; Lymphocytes # (A) 0.9 k/uL (1.0-4.8); Lymphocytes % (A) 7 %; MCH 29.9 pg (25.0-35.0); MCHC 29.9 g/dL (31.0-37.0); MCV 100.1 fL (80.0-100.0); Macrocytosis Slight; Mean Platelet Volume 8.5; Monocytes # (A) 0.3 k/uL (0-1.0); Monocytes % (A) 2 %; Neutrophils # (A) 12.3 k/uL (1.3-7.7); Neutrophils % (A) 90 %; Platelet Count 541 k/uL (150-450); RBC 3.27 m/uL (3.80-5.40); RDW 16.4 % (11.5-15.5); WBC 13.6 k/uL (3.8-10.6)
[2023-03-16] MEDS: ALPRAZolam 0.5 MG TAB PO SCH (07:00)
[2023-03-16] MEDS: MIDODRINE 5 MG TAB PO SCH ×3 (08:13→19:09)
[2023-03-16] MEDS: ENOXAPARIN 40 MG/0.4 ML SYRINGE SQ SCH (08:17)
[2023-03-16] MEDS: VANCOMYCIN 125 MG CAPSULE PO SCH ×4 (08:17→21:11)
[2023-03-16] MEDS: SYMBICORT 80-4.5 MCG INHALER INHALATION SCH ×2 (08:42→18:34)
--- NOTE | 2023-03-16 14:01 | P.PN ---
Subjective Progress Note Date: 03/16/23 59-year-old female patient with known history of COPD with an FEV1 of 60% of predicted and obstructive sleep apnea maintain on CPAP therapy at a pressure of 12 cm of water. The patient is an ex-smoker. The patient has a history of a renal cell carcinoma and she is undergone a previous right nephrectomy followed by targeted therapy. The patient has history of hypothyroidism and acid reflux. The patient has had previous hospitalizations for COPD exacerbation. Note that the patient was recently discharged from the hospital following a fall. At that time, the patient was found to have a left displaced femoral neck fracture. The patient underwent a left hip hemiarthroplasty on 02/28/2023 and the procedure was done without any sequelae. The patient was also found to have a L1 compression fracture following the fall and she was advised to take a TLSO brace. She was discharged home on [place] for pain control. She also was found to have C. diff colitis and the patient was discharged home on oral vancomycin. The patient presented to the hospital because of ongoing lower back pain. She also complained of worsening shortness of breath. She reported some minor cough. Minimal amount of sputum production. No reported fever or chills. The diarrhea subsided. She has completed her course of oral vancomycin. In the emergency department, the patient was afebrile and hemodynamically stable. CT antigram of the chest was done and showed no evidence of any pulmonary embolism. There was some atelectatic change in lung base bilaterally along with some mild cardiomegaly. EKG showed normal sinus rhythm. The patient was has less for an acute COPD exacerbation. At this point in time, the WBC count is 16 with a hemoglobin 10.7 and a platelet count of 522. Troponins are negative, the sodium is at 138, potassium is at 5, BUN is at 60 with a creatinine of 0.8. The viral screen was essentially negative. ProBNP level was 514. D-dimer was at 2.3. She is currently on oxygen at 4 L/m nasal cannula. Denies having any significant shortness of breath at rest. On today's evaluation of 03/15/2023, the patient is feeding slightly improved compared to yesterday. She is down to 3 L of oxygen by nasal cannula pH images bronchus spastic and wheezy. She still on bronchodilators. She is also on IV Solu-Medrol. Noted the patient is on Trelegy Ellipta on outpatient basis and currently she is on Symbicort. She is completing a course of vancomycin for C. diff colitis features taking oral vancomycin on 50 mg by mouth 4 times a day. No active diarrhea at this point in time. She is on Lovenox for DVT prophylaxis. Labs from today shows a white cell count of 17, hemoglobin was 9. 1, sodium is at 141, potassium is at 4.9, BUN is at 60 with a creatinine of 1.0. On 03/08/2023, the patient is being seen for a follow-up. She is being treated for an acute COPD exacerbation. No new complaints for now. She is on bronchodilators patient is on steroids. She is on 2 L of oxygen nasal cannula with a pulse ox of 97%. The white cell count of 15.6 with a hemoglobin of 9.8 and a platelet count of 541. Electrolytes are still pending for now. Her viral screen was negative. The CT angiogram that was done on the time of admission showed no evidence of any pulmonary embolism. There was evidence of pulmonary hypertension. Some anemia and bandlike opacities was seen in lung bases probably related to atelectasis. Objective - Vital Signs Vital signs: Vital Signs Temp 97.5 F L 03/16/23 06:48 Pulse 84 03/16/23 12:23 Resp 19 03/16/23 06:48 BP 130/72 03/16/23 06:48 Pulse Ox 97 03/16/23 08:42 FiO2 Intake & Output 03/15/23 03/16/23 03/16/23 18:59 06:59 18:59 Other: # Voids 1 3 # Bowel Movements 1 - Exam General: nontoxic, no distress, appears at stated age, chronically ill- appearing, the patient is currently on 3 L of oxygen nasal cannula with a pulse ox of 92% Derm: warm, dry Head: atraumatic, normocephalic, symmetric Eyes: EOMI, no lid lag, anicteric sclera, pupils equal round reactive to light ENT: Nose and ears atraumatic Neck: No thyromegaly, supple Mouth: no lip lesion, mucus membranes moist Cardiovascular: S1S2 reg, no murmur, no edema Lungs: clear to auscultation bilateral, no rhonchi, no rales, no wheeze, no accessory muscle use, supplemental oxygen, diminished breath sounds bilaterally along with scattered expiratory wheeze Abdominal: soft, nontender to palpation, no guarding, no appreciable organ omegaly Ext: no gross muscle atrophy, muscle strength muscle strength 5 out of 5 in all 4 extremities, no contractures Neuro: CN II-XII grossly intact Psych: Alert, oriented, appropriate affect - Labs CBC & Chem 7: 03/16/23 06:13 03/15/23 05:15 Labs: Abnormal Lab Results - Last 24 Hours (Table) 03/16/23 Range/Units 06:13 WBC 13.6 H (3.8-10.6) k/uL RBC 3.27 L (3.80-5.40) m/uL Hgb 9.8 L (11.4-16.0) gm/dL Hct 32.7 L (34.0-46.0) % MCV 100.1 H (80.0-100.0) fL MCHC 29.9 L (31.0-37.0) g/dL RDW 16.4 H (11.5-15.5) % Plt Count 541 H (150-450) k/uL Neutrophils # 12.3 H (1.3-7.7) k/uL Lymphocytes # 0.9 L (1.0-4.8) k/uL Microbiology - Last 24 Hours (Table) 03/14/23 10:01 Blood Culture - Preliminary Blood Assessment and Plan Plan: Acute exacerbation of chronic COPD, CT antigram shows no evidence of any pulmonary embolism. This is despite a mildly elevated d-dimer. There is some atelectatic change in lung bases. No clear consolidation or pneumonia, improving slowly Acute on chronic hypoxic respiratory failure, currently on 40 the Bactrim by nasal cannula Chronic COPD with an FEV1 of 60% of predicted at baseline History of obstructive sleep apnea maintain on CPAP therapy at a pressure of 12 cm of water and the patient has a baseline AHI of 16 Subcentimeter pulmonary nodule and earlier CAT scan of the chest on 07/04/2022 showed a few pulmonary nodules measuring up to 8 mm in size. These nodules within the left upper lobe right lower lobe and the right upper lobe. The repe at CAT scan of the chest that was done on 03/14/2023 showed a 14 x 8 mm subpleural lesion in the superior segment of the left lower lobe. Pulmonary nodules need to be followed up on outpatient basis History of renal cell carcinoma, patient underwent an nephrectomy at [facility] on April 11, 2022, due to reported renal carcinoma. Patient is currently taking combination of Cabometyx and Nivolumab. Recent fall with a left displaced femoral neck fracture and the patient underwent a left hip arthroplasty on 02/28/2023. L1 compression fracture, offered a TLSO brace with ongoing chronic back pain C. diff colitis, treated with oral vancomycin, currently inactive and stable Hypothyroidism Acid reflux Leukocytosis, nonspecific Elevated d-dimer, nonspecific and a CT angiogram showed no evidence of any pulmonary embolism Plan Continue same treatment Oxygen she continues to improve and the patient is down to 2 L of oxygen by nasal cannula Avoid the use of antibiotic especially with recent C. diff colitis Complete the course of oral vancomycin Keep the patient with DuoNeyovany updrafts along with IV Solu-Medrol Lovenox 40 mg subcu for DVT prophylaxis Allow the patient utilizes her CPAP machine from home Pain control TLSO brace
--- NOTE | 2023-03-16 15:04 | P.PN ---
Subjective Progress Note Date: 03/16/23 Hospital course: Patient is a very pleasant 62-year-old female with a past medical history of of COPD with chronic hypoxic respiratory failure on continuous oxygen with 2 L O2 via nasal cannula, obstructive sleep apnea, recent left femoral neck fracture requiring surgical intervention, recent C. diff colitis, chronic cholecystitis, history of renal cancer status post nephrectomy. She presented to the emergency department on 03/14/23 from home with a chief complaint of increased shortness of breath. She underwent full evaluation in the emergency department. Vital signs were completed and reviewed. Blood pressure 134/70, heart rate 82, respiratory rate 20, temp 96.9F, and SpO2 of 93% on 4 L O2 via nasal cannula. EKG completed showing normal sinus rhythm at 81 bpm with no significant T-wave or ST abnormalities showing no signs of acute ischemia upon personal review and interpretation. Chest x-ray completed showing worsening patchy airspace disease at the left base unable to exclude pneumonia. CTA chest completed negative for pulmonary emboli revealing enlarged pulmonary trunk consistent with pulmonary hypertension and linear and bandlike opacities in the lung bases likely secondary to scarring and atelectasis with multiple scattered pulmonary nodular densities bilaterally possibly representing infectious/inflammatory process however patient will need to follow up outpatient for repeat CT in 4 months to reevaluate and monitor for resolution. Labs completed and reviewed. CBC revealing leukocytosis with WBC 16.3, hemoglobin 10.7 and thrombocytopenia with platelet of 522. Coagulation profile normal findings with the exception of elevated d-dimer at 2.30. BMP unremarkable. Liver profile showing elevated alkaline phosphatase of 455. Troponin was negative at less than 0.012 and proBNP was 514. Viral respiratory panel including influenza A, influenza B, RCA, and Covid PCR were all negative. Patient was admitted under our services for COPD exacerbation with consultation to pulmonology. She has been treated with IV steroids and bronchodilators and respiratory function is slowly improving back to baseline. Physical exam: Vital signs reviewed and stable. General: Nontoxic, no distress and appears stated age. Derm: Skin warm and dry, normal coloration for ethnicity. Head: Atraumatic, normocephalic and symmetric. Eyes: EOMs intact, no lid lag, and anicteric sclera Mouth: no lip lesions, mucus membranes moist Cardiovascular: regular rate and rhythm with normal S1S2, no murmur, positive posterior tibial pulses bilaterally, and cap refill < 2 seconds. Lungs: Respirations even, regular, and unlabored on room air. Lungs diminished w ith soft expiratory wheezes in upper left lobe otherwise no wheezes, rhonchi, or rales. diminished with diffuse bilateral expiratory wheezes.Abdominal: soft, nontender to palpation, no guarding, no appreciable organomegaly Ext: ROM intact. No gross muscle atrophy, no edema, no contractures Neuro: Speech clear, face symmetrical and CN II-XII grossly intact with no noted focal neuro deficits Psych: Alert and oriented to person, place, time, and situation. Appropriate and pleasant affect. Assessment and Plan of Care: COPD exacerbation with acute on chronic hypoxic respiratory failure Leukocytosis, reactive and steroid-induced -Pulmonology following, discussed plan of care was Dr. Acosta. -Oxygenation to be administered and titrated as needed to maintain SPO2 equal to or greater than 90% -Telemetry monitoring. -Monitor Pulse-oximetry -Duonebs scheduled for times daily and as needed for SOB and/or wheezing -Continue Symbicort 2 puffs twice daily. -Incentive Spirometry -Steroids: Solu-Medrol 40 mg IVP every 8 hours. Recent left femoral neck fracture status post surgical repair Physical therapy following. Continue symptomatic care and pain management. Obstructive sleep apnea Continue use of home CPAP. Elevated d-dimer, CTA negative for PE. Scattered pulmonary nodular densities bilaterally Unable to distinguish between infectious/inflammatory process versus early metastatic process. Patient will need repeat CT chest in 4 months for follow- up/reevaluation to monitor for resolution. Recent infection with C. diff Continue oral vancomycin 250 mg 4 times daily. Data reviewed: Blood cultures showing no growth to date. Morning labs reviewed. CBC showing improvement of leukocytosis with WBC count decreasing from 17.99 down to 13.6. Hemoglobin remained stable at 9.8. And platelet count remains elevated but stable at 541. Vital signs reviewed. 130/72, heart rate 65, respiratory rate 19, temp 97.5F, SpO2 of 97% on 2 L. CODE STATUS: Full code DVT prophylaxis: Lovenox Anticipated discharge date: Likely within the next [address]: home with homecare, COPD her program, and referral placed for palliative care secondary to advanced COPD. Patient was seen independently by Nurse Pracitioner. This document was prepared using [employer] dictation software. Please allow for errors in inspector fibrous wallboard, while rare they do occur. Objective - Vital Signs Vital signs: Vital Signs Temp 97.5 F L 03/16/23 06:48 Pulse 76 03/16/23 08:57 Resp 19 03/16/23 06:48 BP 130/72 03/16/23 06:48 Pulse Ox 97 03/16/23 08:42 FiO2 Intake & Output 03/15/23 03/16/23 03/16/23 18:59 06:59 18:59 Other: # Voids 1 3 # Bowel Movements 1 - Labs CBC & Chem 7: 03/16/23 06:13 03/15/23 05:15 Labs: Abnormal Lab Results - Last 24 Hours (Table) 03/16/23 Range/Units 06:13 WBC 13.6 H (3.8-10.6) k/uL RBC 3.27 L (3.80-5.40) m/uL Hgb 9.8 L (11.4-16.0) gm/dL Hct 32.7 L (34.0-46.0) % MCV 100.1 H (80.0-100.0) fL MCHC 29.9 L (31.0-37.0) g/dL RDW 16.4 H (11.5-15.5) % Plt Count 541 H (150-450) k/uL Neutrophils # 12.3 H (1.3-7.7) k/uL Lymphocytes # 0.9 L (1.0-4.8) k/uL Microbiology - Last 24 Hours (Table) 03/14/23 10:01 Blood Culture - Preliminary Blood
[2023-03-16] MEDS: ATORVASTATIN 40 MG TAB PO SCH (17:46)
[2023-03-16] MEDS: ZIPRASIDONE 60 MG CAP PO SCH (17:48)
[2023-03-16] MEDS ORDERED: LIDOCAINE 4% PATCH TOPICAL ONE (18:01)
[2023-03-16] MEDS: MORPHINE SULFATE 4 MG/ML SYRINGE IVP PRN (21:27)
[2023-03-17] MEDS: IPRATROPIUM-ALBUTEROL 3 ML NEB INHALATION SCH ×5 (00:06→16:20)
[2023-03-17] MEDS: HYDROcodone/APAP 7.5-325MG 1 EACH TAB PO PRN ×3 (02:12→17:25)
[2023-03-17] MEDS: BALSALAZIDE DISODIUM 750 MG CAPSULE PO SCH ×3 (05:58→17:24)
[2023-03-17] MEDS: buPROPion SR 100 MG TABLET.ER PO SCH ×2 (05:58→17:24)
[2023-03-17] MEDS: PROPRANOLOL 20 MG TAB PO SCH ×2 (05:58→17:24)
[2023-03-17] MEDS: SODIUM BICARBONATE TAB 650 MG TAB PO SCH ×2 (05:59→17:24)
[2023-03-17] MEDS: ZIPRASIDONE 40 MG CAP PO SCH (05:59)
[2023-03-17] MEDS: PANTOPRAZOLE 40 MG TABLET PO SCH ×2 (05:59→17:24)
[2023-03-17] MEDS: ALPRAZolam 0.5 MG TAB PO SCH (05:59)
[2023-03-17] MEDS: MULTIVITAMINS, THERA 1 EACH TAB PO SCH (05:59)
[2023-03-17] MEDS: MAGNESIUM OXIDE 400 MG TAB PO SCH ×2 (05:59→17:24)
[2023-03-17] MEDS: LEVOTHYROXINE 112 MCG TAB PO SCH (05:59)
[2023-03-17 07:48] VITALS: RESP 19
[2023-03-17] MEDS: MIDODRINE 5 MG TAB PO SCH ×3 (08:00→17:27)
[2023-03-17] MEDS: ENOXAPARIN 40 MG/0.4 ML SYRINGE SQ SCH (08:06)
[2023-03-17] MEDS: methylPREDNISolone SOD SUCCI 40 MG/ML 1 ML VIAL IV SCH ×2 (08:06→16:53)
[2023-03-17] MEDS: VANCOMYCIN 125 MG CAPSULE PO SCH ×3 (08:06→17:24)
[2023-03-17] MEDS ORDERED: LIDOCAINE 4% PATCH TOPICAL SCH (09:00)
[2023-03-17] MEDS: SYMBICORT 80-4.5 MCG INHALER INHALATION SCH (09:14)
[2023-03-17 14:24] VITALS: BP 116/64; TEMP 98.1
--- NOTE | 2023-03-17 15:15 | P.DS ---
Providers Date of admission: 03/14/23 10:01 Expected date of discharge: 03/17/23 Attending physician: Deny Paulson MD Consults: 03/14/23 10:00 Consult Physician Urgent Consulting Provider: Rosales Acosta Consult Reason/Comments: acute resp insuff, copd exacerbation, cap Do you want consulting provider notified?: Yes Primary care physician: Sylvester Saenz MD Hospital Course: Discharge Diagnosis: COPD exacerbation with acute on chronic hypoxic respiratory failure. Patient discharged home with COPD Navigator program and home care with referral sent to palliative care for exam COPD. Leukocytosis, reactive and steroid-induced Recent left femoral neck fracture status post surgical repair via left hip hemiarthroplasty during previous hospitalization on 02/28/23 Obstructive sleep apnea. Continue use of home CPAP. Elevated d-dimer, CTA negative for PE. Scattered pulmonary nodular densities bilaterally. Unable to distinguish between infectious/inflammatory process versus early metastatic process. Patient will need repeat CT chest in 4 months for follow-up/reevaluation to monitor for resolution. Recent infection with C. diff. Complete remaining course of oral vancomycin 250 mg 4 times daily. Hospital Course: Patient is a very pleasant 62-year-old female with a past medical history of of COPD with chronic hypoxic respiratory failure on continuous oxygen with 2 L O2 via nasal cannula, obstructive sleep apnea, recent left femoral neck fracture requiring surgical intervention, recent C. diff colitis, chronic cholecystitis, history of renal cancer status post nephrectomy. She presented to the emergency department on 03/14/23 from home with a chief complaint of increased shortness of breath. She underwent full evaluation in the emergency department. Vital signs were completed and reviewed. Blood pressure 134/70, heart rate 82, respiratory rate 20, temp 96.9F, and SpO2 of 93% on 4 L O2 via nasal cannula. EKG completed showing normal sinus rhythm at 81 bpm with no significant T-wave or ST abnormalities showing no signs of acute ischemia upon personal review and interpretation. Chest x-ray completed showing worsening patchy airspace disease at the left base unable to exclude pneumonia. CTA chest completed negative for pulmonary emboli revealing enlarged pulmonary trunk consistent with pulmonary hypertension and linear and bandlike opacities in the lung bases likely secondary to scarring and atelectasis with multiple scattered pulmonary nodular densities bilaterally possibly representing infectious/inflammatory process however patient will need to follow up outpatient for repeat CT in 4 months to reevaluate and monitor for resolution. Labs completed and reviewed. CBC revealing leukocytosis with WBC 16.3, hemoglobin 10.7 and thrombocytopenia with platelet of 522. Coagulation profile normal findings with the exception of elevated d-dimer at 2.30. BMP unremarkable. Liver profile showing elevated alkaline phosphatase of 455. Troponin was negative at less than 0.012 and proBNP was 514. Viral respiratory panel including influenza A, influenza B, RCA, and Covid PCR were all negative. Patient was admitted under our services for COPD exacerbation with consultation to pulmonology. She has been treated with IV steroids and bronchodilators and respiratory function is slowly improving back to baseline. Patient is now maintained baseline oxygen needs for >24 hours and appears to be doing well. She has been working with physical [employer] and able to do the stairs. Medically, patient is stable for discharge at this time. She is being discharged home with prednisone taper along with lidocaine patches reports of lower back pain. Patient was provided with prescription refills for her magnesium and sodium bicarb per her request and was given a 3 day course refill of [place] per her request. Patient instructed she will need to follow up outpatient with her PCP in 1-2 days, pulmonology in one week, an orthopedic surgeon as previously scheduled for follow-up on her recent left hip hemiarthroplasty. Physical exam: Vital signs reviewed and stable. General: Nontoxic, no distress and appears stated age. Derm: Skin warm and dry, normal coloration for ethnicity. Head: Atraumatic, normocephalic and symmetric. Eyes: EOMs intact, no lid lag, and anicteric sclera Mouth: no lip lesions, mucus membranes moist Cardiovascular: regular rate and rhythm with normal S1S2, no murmur, positive posterior tibial pulses bilaterally, and cap refill < 2 seconds. Lungs: Respirations even, regular, and unlabored on room air. Lungs diminished with soft expiratory wheezes in upper left lobe otherwise no wheezes, rhonchi, or rales. diminished with diffuse bilateral expiratory wheezes.Abdominal: soft, nontender to palpation, no guarding, no appreciable organomegaly Ext: ROM intact. No gross muscle atrophy, no edema, no contractures Neuro: Speech clear, face symmetrical and CN II-XII grossly intact with no noted focal neuro deficits Psych: Alert and oriented to person, place, time, and situation. Appropriate and pleasant affect. A total of 35 minutes of time were spent preparing this complex discharge summary. Pt was discharged on 03/17/23 11:44 AM Patient was seen independently by Nurse Practitioner. This document was prepared using [employer] dictation software. Please allow for errors in engine watchman while rare they do occur. Elpidio Irving [employer] MEMBER rendered care for this patient independently, reviewed the findings and plan as documented in the note above. I did not physically speak with or examine the patient on this date. Patient Condition at Discharge: Stable Plan - Discharge Summary Discharge Rx Participant: Yes New Discharge Prescriptions: New Lidocaine 4% Patch 1 patch TOPICAL DAILY 30 Days #30 patch predniSONE See Taper PO DIRECTED 12 Days #30 tab Continue Ziprasidone [Geodon] 40 mg PO DAILY@0530 Mesalamine [Delzicol] 800 mg PO TID@0530,1200,1730 Albuterol Inhaler [Ventolin Hfa Inhaler] 2 puff INHALATION RT-Q6H PRN PRN Reason: Shortness Of Breath buPROPion HCL [Wellbutrin SR] 200 mg PO BID@0530,1730 Ziprasidone [Geodon] 60 mg PO HS@1730 Levothyroxine Sodium [Synthroid] 112 mcg PO DAILY@0530 Cyanocobalamin (Vitamin B-12) [Vitamin B-12] 1,000 mcg PO BID@0530,1730 Pantoprazole [Protonix] 40 mg PO BID@0530,1730 Vancomycin HCl [Vancocin HCl] 250 mg PO QID Multivitamins, Thera [Multivitamin (formulary)] 1 tab PO DAILY@0530 Atorvastatin Calcium [Lipitor] 40 mg PO HS@1730 Albuterol Nebulized [Ventolin Nebulized] 2.5 mg INHALATION RT-QID PRN PRN Reason: Shortness Of Breath Midodrine [ProAmatine] 10 mg PO AC-TID #120 tab Fluticasone/Umeclidin/Vilanter [Trelegy Ellipta 100-62.5-25] 1 puff INHALATION RT-DAILY ALPRAZolam [Xanax] 0.5 mg PO DAILY@0530 #6 tab Propranolol [Inderal] 20 mg PO BID@0530,1730 Magnesium Oxide [Mag-Ox] 800 mg PO BID@0530,1730 30 Days #60 tab HYDROcodone/APAP 7.5-325MG [[place] 7.5-325] 1 tab PO TID PRN #9 tab PRN Reason: Pain Sodium Bicarbonate Tab 650 mg PO BID@0530,173 30 Days #60 tab Discharge Medication List Ziprasidone [Geodon] 40 mg PO DAILY@0530 02/07/14 [History] Albuterol Inhaler [Ventolin Hfa Inhaler] 2 puff INHALATION RT-Q6H PRN 11/07/17 [History] Mesalamine [Delzicol] 800 mg PO TID@0530,1200,17311/07/17 [History] Albuterol Nebulized [Ventolin Nebulized] 2.5 mg INHALATION RT-QID PRN 07/03/22 [History] Atorvastatin Calcium [Lipitor] 40 mg PO HS@172907/03/22 [History] Levothyroxine Sodium [Synthroid] 112 mcg PO DAILY@0507/03/22 [History] Multivitamins, Thera [Multivitamin (formulary)] 1 tab PO DAILY@0507/03/22 [History] Ziprasidone [Geodon] 60 mg PO HS@172907/03/22 [History] buPROPion HCL [Wellbutrin SR] 200 mg PO BID@0530,172907/03/22 [History] Midodrine [ProAmatine] 10 mg PO AC-TID #120 tab 07/07/22 [Rx] Cyanocobalamin (Vitamin B-12) [Vitamin B-12] 1,000 mcg PO BID@0530,1730 01/15/23 [History] Fluticasone/Umeclidin/Vilanter [Trelegy Ellipta 100-62.5-25] 1 puff INHALATION RT-DAILY 01/15/23 [History] Pantoprazole [Protonix] 40 mg PO BID@0530,1730 02/27/23 [History] ALPRAZolam [Xanax] 0.5 mg PO DAILY@0530 #6 tab 03/06/23 [Rx] Propranolol [Inderal] 20 mg PO BID@0530,17303/14/23 [History] Vancomycin HCl [Vancocin HCl] 250 mg PO QID 03/14/23 [History] HYDROcodone/APAP 7.5-325MG [[place] 7.5-325] 1 tab PO TID PRN #9 tab 03/17/23 [Rx] Lidocaine 4% Patch 1 patch TOPICAL DAILY 30 Days #30 patch 03/17/23 [Rx] Magnesium Oxide [Mag-Ox] 800 mg PO BID@0530,1730 30 Days #60 tab 03/17/23 [Rx] Sodium Bicarbonate Tab 650 mg PO BID@0530,1730 30 Days #60 tab 03/17/23 [Rx] predniSONE See Taper PO DIRECTED 12 Days #30 tab 03/17/23 [Rx] Follow up Appointment(s)/Referral(s): Sylvester Saenz MD [Primary Care Provider] - 1-2 days (office closed at time of discharge Please call to schedule appointment ) [facility] Home Health, [REFERRING] - 1 Week Rosales Acosta MD [STAFF PHYSICIAN] - 1 Week (office closed at time of discharge. please call to schedule appointment.) Patient Instructions/Handouts: COPD (Chronic Obstructive Pulmonary Disease) (DC), Chronic Lung Disease and Infection Prevention (DC) Activity/Diet/Wound Care/Special Instructions: Activity: As tolerated. Take breaks as needed. Diet: Heart healthy and carb consistent diet. Avoid salts, or foods with hidden salts such as canned or boxed foods and frozen dinners. Extra salt makes your heart work harder and traps the fluid in your body for longer. Special Instructions: Take all of your medications as directed and remember to keep all of your doctor's appointments and follow-up as needed. You are being discharged home with [facility] home care and a referral has been sent to palliative care for assistance with managing your advanced COPD. [facility] home care: Phone number is [phone] CT revealed Scattered pulmonary nodular densities bilaterally. Unable to distinguish between infectious/inflammatory process versus other. You will need repeat CT chest in 4 months for follow-up/reevaluation to monitor for resolution. This CT can be ordered by your primary care doctor or agricultural technician at your follow up visit. Thank you for allowing us to participate in your care, it was truly a pleasure having you for our patient!!! Discharge Disposition: HOME WITH HOME HEALTH SERVICES
[2023-03-17 16:43] VITALS: PULSE 68
--- NOTE | 2023-03-17 16:58 | P.PN ---
Subjective Progress Note Date: 03/17/23 59-year-old female patient with known history of COPD with an FEV1 of 60% of predicted and obstructive sleep apnea maintain on CPAP therapy at a pressure of 12 cm of water. The patient is an ex-smoker. The patient has a history of a renal cell carcinoma and she is undergone a previous right nephrectomy followed by targeted therapy. The patient has history of hypothyroidism and acid reflux. The patient has had previous hospitalizations for COPD exacerbation. Note that the patient was recently discharged from the hospital following a fall. At that time, the patient was found to have a left displaced femoral neck fracture. The patient underwent a left hip hemiarthroplasty on 02/28/2023 and the procedure was done without any sequelae. The patient was also found to have a L1 compression fracture following the fall and she was advised to take a TLSO brace. She was discharged home on [place] for pain control. She also was found to have C. diff colitis and the patient was discharged home on oral vancomycin. The patient presented to the hospital because of ongoing lower back pain. She also complained of worsening shortness of breath. She reported some minor cough. Minimal amount of sputum production. No reported fever or chills. The diarrhea subsided. She has completed her course of oral vancomycin. In the emergency department, the patient was afebrile and hemodynamically stable. CT antigram of the chest was done and showed no evidence of any pulmonary embolism. There was some atelectatic change in lung base bilaterally along with some mild cardiomegaly. EKG showed normal sinus rhythm. The patient was has less for an acute COPD exacerbation. At this point in time, the WBC count is 16 with a hemoglobin 10.7 and a platelet count of 522. Troponins are negative, the sodium is at 138, potassium is at 5, BUN is at 60 with a creatinine of 0.8. The viral screen was essentially negative. ProBNP level was 514. D-dimer was at 2.3. She is currently on oxygen at 4 L/m nasal cannula. Denies having any significant shortness of breath at rest. On today's evaluation of 03/15/2023, the patient is feeding slightly improved compared to yesterday. She is down to 3 L of oxygen by nasal cannula pH images bronchus spastic and wheezy. She still on bronchodilators. She is also on IV Solu-Medrol. Noted the patient is on Trelegy Ellipta on outpatient basis and currently she is on Symbicort. She is completing a course of vancomycin for C. diff colitis features taking oral vancomycin on 50 mg by mouth 4 times a day. No active diarrhea at this point in time. She is on Lovenox for DVT prophylaxis. Labs from today shows a white cell count of 17, hemoglobin was 9. 1, sodium is at 141, potassium is at 4.9, BUN is at 60 with a creatinine of 1.0. On 03/08/2023, the patient is being seen for a follow-up. She is being treated for an acute COPD exacerbation. No new complaints for now. She is on bronchodilators patient is on steroids. She is on 2 L of oxygen nasal cannula with a pulse ox of 97%. The white cell count of 15.6 with a hemoglobin of 9.8 and a platelet count of 541. Electrolytes are still pending for now. Her viral screen was negative. The CT angiogram that was done on the time of admission showed no evidence of any pulmonary embolism. There was evidence of pulmonary hypertension. Some anemia and bandlike opacities was seen in lung bases probably related to atelectasis. On today's evaluation of 03/17/2023, the patient is feeling better. Less short of breath and she is currently on room air oxygen. Diarrhea has subsided and the patient remains on oral vancomycin. She remains on IV Solu-Medrol. She remains on bronchodilators. No chest pain. No pleurisy or edema. No new labs for today. Objective - Vital Signs Vital signs: Vital Signs Temp 98.1 F 03/17/23 13:23 Pulse 96 03/17/23 13:23 Resp 19 03/17/23 13:23 BP 116/64 03/17/23 13:23 Pulse Ox 94 L 03/17/23 13:23 FiO2 2 03/17/23 04:04 Intake & Output 03/16/23 03/17/23 03/17/23 18:59 06:59 18:59 Other: # Voids 4 2 # Bowel Movements 2 - Exam General: nontoxic, no distress, appears at stated age, chronically ill-appear ing, the patient is currently on RA oxygen nasal cannula with a pulse ox of 92% Derm: warm, dry Head: atraumatic, normocephalic, symmetric Eyes: EOMI, no lid lag, anicteric sclera, pupils equal round reactive to light ENT: Nose and ears atraumatic Neck: No thyromegaly, supple Mouth: no lip lesion, mucus membranes moist Cardiovascular: S1S2 reg, no murmur, no edema Lungs: clear to auscultation bilateral, no rhonchi, no rales, no wheeze, no accessory muscle use, supplemental oxygen, diminished breath sounds bilaterally along with scattered expiratory wheeze Abdominal: soft, nontender to palpation, no guarding, no appreciable organomegaly Ext: no gross muscle atrophy, muscle strength muscle strength 5 out of 5 in all 4 extremities, no contractures Neuro: CN II-XII grossly intact Psych: Alert, oriented, appropriate affect - Labs CBC & Chem 7: 03/16/23 06:13 03/15/23 05:15 Labs: Microbiology - Last 24 Hours (Table) 03/14/23 10:01 Blood Culture - Preliminary Blood Assessment and Plan Plan: Acute exacerbation of chronic COPD, CT antigram shows no evidence of any p ulmonary embolism. This is despite a mildly elevated d-dimer. There is some atelectatic change in lung bases. No clear consolidation or pneumonia, improving slowly Acute on chronic hypoxic respiratory failure, currently on room air oxygen Chronic COPD with an FEV1 of 60% of predicted at baseline History of obstructive sleep apnea maintain on CPAP therapy at a pressure of 12 cm of water and the patient has a baseline AHI of 16 Subcentimeter pulmonary nodule and earlier CAT scan of the chest on 07/04/2022 showed a few pulmonary nodules measuring up to 8 mm in size. These nodules within the left upper lobe right lower lobe and the right upper lobe. The repeat CAT scan of the chest that was done on 03/14/2023 showed a 14 x 8 mm subpleural lesion in the superior segment of the left lower lobe. Pulmonary nodules need to be followed up on outpatient basis History of renal cell carcinoma, patient underwent an nephrectomy at [facility] in [place] on April 11, 2022, due to reported renal carcinoma. Patient is currently taking combination of Cabometyx and Nivolumab. Recent fall with a left displaced femoral neck fracture and the patient underwent a left hip arthroplasty on 02/28/2023. L1 compression fracture, offered a TLSO brace with ongoing chronic back pain C. diff colitis, treated with oral vancomycin, currently inactive and stable Hypothyroidism Acid reflux Leukocytosis, nonspecific Elevated d-dimer, nonspecific and a CT angiogram showed no evidence of any pulmonary embolism Plan Clinically the patient is much improved and the patient Oxycet normalized and th e patient is currently on room air oxygen. Continue bronchodilators Patient chemistries to oral prednisone burst taper Discharge planning is in progress Allow the patient utilizes her CPAP machine from home Pain control TLSO brace
[2023-03-17] MEDS: ZIPRASIDONE 60 MG CAP PO SCH (17:24)
[2023-03-17] MEDS: ATORVASTATIN 40 MG TAB PO SCH (17:24)
== END 2023-03-17 17:49 | disposition home health service (06) | DRG 190 ==
LOC: EC 06:18 → 4SSUR 10:01
PROVIDERS: ADMIT Student in an Organized Health Care Education/Training Program; ATTEND Student in an Organized Health Care Education/Training Program
DX: J44.1 Chronic obstructive pulmonary disease with (acute) exacerbation (principal); J96.21 Acute and chronic respiratory failure with hypoxia; M48.56XA Collapsed vertebra, not elsewhere classified, lumbar region, initial encounter for fracture; I27.20 Pulmonary hypertension, unspecified; D69.6 Thrombocytopenia, unspecified; F29 Unspecified psychosis not due to a substance or known physiological condition; K81.1 Chronic cholecystitis; Z99.81 Dependence on supplemental oxygen; E03.9 Hypothyroidism, unspecified; E78.5 Hyperlipidemia, unspecified; K21.9 Gastro-esophageal reflux disease without esophagitis; G47.33 Obstructive sleep apnea (adult) (pediatric); I51.7 Cardiomegaly; G89.29 Other chronic pain; T38.0X5A Adverse effect of glucocorticoids and synthetic analogues, initial encounter; D72.828 Other elevated white blood cell count; S72.002D Fracture of unspecified part of neck of left femur, subsequent encounter for closed fracture with routine healing; R91.8 Other nonspecific abnormal finding of lung field; Z96.642 Presence of left artificial hip joint; Z85.528 Personal history of other malignant neoplasm of kidney; Z90.5 Acquired absence of kidney; Z87.891 Personal history of nicotine dependence; Z79.890 Hormone replacement therapy; Z91.81 History of falling; Z11.52 Encounter for screening for COVID-19; Z86.19 Personal history of other infectious and parasitic diseases; Z79.899 Other long term (current) drug therapy; Z79.51 Long term (current) use of inhaled steroids; Z88.5 Allergy status to narcotic agent; Z88.0 Allergy status to penicillin; Z88.2 Allergy status to sulfonamides; Z88.6 Allergy status to analgesic agent
CPT/HCPCS: 36415; 71045; 71275; 80048; 80053; 83605; 83880; 84484; 85025; 85379; 85610; 85730; 87040; 87636; 93005; 94640; 94660; 94760; 96365; 96366; 96375; 96376; 99285

== ENCOUNTER 2023-03-24 13:21 | Inpatient (IN) | payer MEDICARE, OTHER ==
--- NOTE | 2023-03-24 14:45 | ED ---
General Adult HPI - General Source: patient, RN notes reviewed, old records reviewed Mode of arrival: wheelchair Limitations: no limitations <JosuéParish Jone - Last Filed: 03/24/23 14:45> - General Source: patient, RN notes reviewed, old records reviewed <Derick Quan - Last Filed: 03/24/23 22:34> - General Chief complaint: Shortness of Breath Stated complaint: YAN, Back Pain - History of Present Illness Initial comments: 62-year-old female with cough, congestion symptoms began today. No central chest pain. No measured fever. (Parish Moses) Patient is a 62-year-old female presents with department complaining of upper respiratory complaints. She does have a history of COPD, hyperlipidemia, asthma with recent C. diff completed antibiotics, was currently on a course of steroids. States she has noticed a productive cough for the last 24 hours or so. Previously did have pneumonia last month. Denies any chest pain. Denies any fevers or chills. Endorses a productive cough of yellowish-green sputum. Denies nausea or vomiting or diarrhea. Other acute complaints. He is normally not on oxygen. States she noticed her pulse ox was reading 85% home which is why she presents for further evaluation at this time. Does endorse exertional dyspnea. (Derick Quan) - Related Data Home Medications Medication Instructions Recorded Confirmed Ziprasidone [Geodon] 40 mg PO DAILY@0530 02/07/14 03/24/23 Albuterol Inhaler [Ventolin Hfa 2 puff INHALATION RT-Q6H PRN 11/07/17 03/24/23 Inhaler] Mesalamine [Delzicol] 800 mg PO TID@0530,1200,1730 11/07/17 03/24/23 Albuterol Nebulized [Ventolin 2.5 mg INHALATION RT-QID PRN 07/03/22 03/24/23 Nebulized] Atorvastatin Calcium [Lipitor] 40 mg PO HS@1730 07/03/22 03/24/23 Levothyroxine Sodium [Synthroid] 112 mcg PO DAILY@0530 07/03/22 03/24/23 Multivitamins, Thera [Multivitamin 1 tab PO DAILY@52907/03/22 03/24/23 (formulary)] Ziprasidone [Geodon] 60 mg PO HS@1730 07/03/22 03/24/23 buPROPion HCL [Wellbutrin SR] 200 mg PO BID@0530,1730 07/03/22 03/24/23 Cyanocobalamin (Vitamin B-12) 1,000 mcg PO BID@0530,1730 01/15/23 03/24/23 [Vitamin B-12] Fluticasone/Umeclidin/Vilanter 1 puff INHALATION RT-DAILY 01/15/23 03/24/23 [Trelegy Ellipta 100-62.5-25] Pantoprazole [Protonix] 40 mg PO BID@0530,1730 02/27/23 03/24/23 Propranolol [Inderal] 20 mg PO BID@0530,1730 03/14/23 03/24/23 Lidocaine 4% Patch 1 patch TRANSDERM DAILY 03/24/23 03/24/23 Previous Rx's Medication Instructions Recorded Midodrine [ProAmatine] 10 mg PO AC-TID #120 tab 07/07/22 ALPRAZolam [Xanax] 0.5 mg PO DAILY@0530 #6 tab 03/06/23 HYDROcodone/APAP 7.5-325MG [[place] 1 tab PO TID PRN #9 tab 03/17/23 7.5-325] Magnesium Oxide [Mag-Ox] 800 mg PO BID@0530,1730 30 Days 03/17/23 #60 tab Sodium Bicarbonate Tab 650 mg PO BID@0530,1730 30 Days 03/17/23 #60 tab predniSONE See Taper PO DIRECTED 12 Days 03/17/23 #30 tab Allergies Allergy/AdvReac Type Severity Reaction Status Date / Time codeine Allergy Rash/Hives Verified 03/24/23 14:34 Penicillins Allergy Rash/Hives Verified 03/24/23 14:34 on feet Sulfa (Sulfonamide Allergy Rash/Hives Verified 03/24/23 14:34 Antibiotics) ibuprofen [From Motrin] AdvReac Nausea & Verified 03/24/23 14:34 Vomiting Review of Systems ROS Other: All systems not noted in ROS Statement are negative. <Parish Moses - Last Filed: 03/24/23 14:45> ROS Other: All systems not noted in ROS Statement are negative. <Derick Quan - Last Filed: 03/24/23 22:34> ROS Statement: Those systems with pertinent positive or pertinent negative responses have been documented in the HPI. Review of Systems: CONST: Denies fever EYES: Denies blurry vision ENT: Denies nasal congestion C/V: Denies Chest pain RESP: Endorses cough GI: Denies abdominal pain : Denies dysuria SKIN: Denies rash. MSK: Denies joint pain. NEURO: Denies headache (Derick Quan) Past Medical History Past Medical History: Asthma, COPD, GERD/Reflux, Hyperlipidemia, Liver Disease, Sleep Apnea/CPAP/BIPAP Additional Past Medical History / Comment(s): hx internal hemorrhoid, kidney CA with right nephrectomy, CPAP use, colitis, IBS History of Any Multi-Drug Resistant Organisms: None Reported Past Surgical History: Hysterectomy Additional Past Surgical History / Comment(s): right nephrectomy 04/11/22 Past Anesthesia/Blood Transfusion Reactions: No Reported Reaction Past Psychological History: Anxiety, Bipolar, Depression Smoking Status: Former smoker Past Alcohol Use History: None Reported Past Drug Use History: None Reported <Parish Moses - Last Filed: 03/24/23 14:45> General Exam Limitations: no limitations <Parish Moses - Last Filed: 03/24/23 14:45> <Derick Quan - Last Filed: 03/24/23 22:34> - General Exam Comments Initial Comments: Patient awake alert, mild respiratory distress, diffuse rhonchi and wheezing (Parish Moses) General: Appears in no acute distress. HEAD: Normal with no signs of head trauma. EYES: PERRLA, EOMI, conjunctiva normal, no discharge. ENT: Hearing grossly intact, normal oropharynx. RESPIRATORY: Coarse, wheezy in bilateral lung mandel. No significant increased work of breathing. Hypoxic on room air to 89-90%. C/V: Regular rate and rhythm. S1 and S2 auscultated, no edema, peripheral pulses 2+ and intact throughout ABD: Abd is soft, nontender, nondistended EXT: Normal range of motion, no obvious deformity SKIN: No rashes or lesions observed on exposed skin. NEURO: Alert and oriented 4. (Derick Quan) Course Vital Signs 03/24/23 03/24/23 03/24/23 14:34 19:00 19:03 Temperature 97.6 F Pulse Rate 100 104 H Respiratory 16 20 Rate Blood Pressure 147/77 O2 Sat by Pulse 90 L Oximetry 03/24/23 03/24/23 03/24/23 19:15 19:35 20:09 Temperature Pulse Rate 100 102 H Respiratory Rate Blood Pressure O2 Sat by Pulse 87 L 92 L Oximetry 03/24/23 03/24/23 22:01 22:11 Temperature Pulse Rate 96 92 Respiratory Rate Blood Pressure O2 Sat by Pulse Oximetry Medical Decision Making - Lab Data Result diagrams: 03/24/23 15:17 03/24/23 15:17 - EKG Data -: EKG Interpreted by Me <Derick Quan - Last Filed: 03/24/23 22:34> - Medical Decision Making Was pt. sent in by a medical professional or institution (, PA, [employer], urgent care, hospital, or custodial...) When possible be specific @ -No Did you speak to anyone other than the patient for history (EMS, parent, family, police, friend...)? What history was obtained from this source @ -No Did you review nursing and triage notes (agree or disagree)? Why? @ -I reviewed and agree with nursing and triage notes Were old charts reviewed (outside hosp., previous admission, EMS record, old EKG, old radiological studies, urgent care reports/EKG's, custodial records)? Report findings @ -Old charts reviewed Differential Diagnosis (chest pain, altered mental status, abdominal pain women, abdominal pain men, vaginal bleeding, weakness, fever, dyspnea, syncope, hea dache, dizziness, GI bleed, back pain, seizure, CVA, palpatations, mental health, musculoskeletal)? @ -Differential Dyspnea: Coronary syndrome, arrhythmia, tamponade, asthma, COPD, pulmonary embolism, pneumonia, pneumothorax, pulmonary effusion, anaphylaxis, diabetic ketoacidosis, flailed chest, pulmonary contusion, diaphragmatic rupture, anemia, neuromuscular, this is not meant to be an all-inclusive list. EKG interpreted by me (3pts min.). @ -As above X-rays interpreted by me (1pt min.). @ -Chest x-ray shows left lower lobe pneumonia CT interpreted by me (1pt min.). @ -None done U/S interpreted by me (1pt. min.). @ -None done What testing was considered but not performed or refused? (CT, X-rays, U/S, labs)? Why? @ -None What meds were considered but not given or refused? Why? @ -None Did you discuss the management of the patient with other professionals (professionals i.e. , PA, [employer], lab, RT, psych nurse, social economist, butcher meat, teacher, fourth officer, manager case)? Give summary @ -I spoke with Dr. Neumann who accepted the patient. Was smoking cessation discussed for >3mins.? @ -No Was critical care preformed (if so, how long)? @ -Yes, 35 minutes. Frequent re-evaluations for hypoxia. Were there social determinants of health that impacted care today? How? (Homelessness, low income, unemployed, alcoholism, drug addiction, transportation, low edu. Level, literacy, decrease access to med. care, custodial, rehab)? @ -No Was there de-escalation of care discussed even if they declined (Discuss DNR or withdrawal of care, Hospice)? DNR status @ -No What co-morbidities impacted this encounter? (DM, HTN, Smoking, COPD, CAD, Cancer, CVA, ARF, Chemo, Hep., AIDS, mental health diagnosis, sleep apnea, morbid obesity)? @ -None Was patient admitted / discharged? Hospital course, mention meds given and route, prescriptions, significant lab abnormalities, going to OR and other pertinent info. @ -Based on patient's presentation and physical exam, presents emergency Dep artment complaining of increased work of breathing. Patient is hypoxic on room air 89-90%. Appears to be having a COPD exacerbation. Patient originally evaluated as a quick known I evaluated her when she was placed in room. She was placed on 2 L nasal cannula we will attempt breathing treatment states that improves with her oxygenation. She is normally not on oxygen at home. Workup does appear to show a pneumonia. Patient's white blood cell count of 20.6 which is likely multifactorial consisting of steroid administration as well as infectious etiology at this time. Mandible labs are relatively unremarkable. Troponin undetectable. Chest x-ray shows a left lower lobe pneumonia. Vital signs negative. Patient was in agreement this plan. Patient's still saturating in the mid 80s, anywhere from 85-87% on ambulation. This is atypical for the patient. She is still symptomatic. We'll place on 2 L nasal cannula and admitted her for hypoxic respiratory failure secondary to COPD and pneumonia. She was started on IV antibiotics. Patient was in agreement this plan. We will continue with IV steroids, as well as breathing treatments. She'll be admitted to the hospital. Pulmonology consulted. I spoke with the admitting physician, Dr. Neumann who accepted the patient. Undiagnosed new problem with uncertain prognosis? @ -No Drug Therapy requiring intensive monitoring for toxicity (Heparin, Nitro, Insulin, Cardizem)? @ -No Were any procedures done? @ -No Diagnosis/symptom? @ -Hypoxic respiratory failure, likely secondary to COPD and pneumonia Acute, or Chronic, or Acute on Chronic? @ -Acute on chronic Uncomplicated (without systemic symptoms) or Complicated (systemic symptoms)? @ -Complicated Side effects of treatment? @ -No Exacerbation, Progression, or Severe Exacerbation? @ -No Poses a threat to life or bodily function? How? (Chest pain, [place], [place], pneumonia, PE, COPD, DKA, ARF, appy, cholecystitis, CVA, Diverticulitis, Homicidal, Suicidal, threat to staff... and all critical care pts) @ -Yes (Derick Quan) - Lab Data Lab Results 03/24/23 03/24/23 03/24/23 Range/Units 14:41 15:17 15:17 WBC 20.6 H (3.8-10.6) k/uL RBC 3.93 (3.80-5.40) m/uL Hgb 11.3 L (11.4-16.0) gm/dL Hct 38.0 (34.0-46.0) % MCV 96.7 (80.0-100.0) fL MCH 28.6 (25.0-35.0) pg MCHC 29.6 L (31.0-37.0) g/dL RDW 15.9 H (11.5-15.5) % Plt Count 436 (150-450) k/uL MPV 10.5 Neutrophils % 90 % Lymphocytes % 7 % Monocytes % 2 % Eosinophils % 0 % Basophils % 0 % Neutrophils # 18.5 H (1.3-7.7) k/uL Lymphocytes # 1.5 (1.0-4.8) k/uL Monocytes # 0.4 (0-1.0) k/uL Eosinophils # 0.0 (0-0.7) k/uL Basophils # 0.1 (0-0.2) k/uL Hypochromasia Marked PT 10.3 (10.0-12.5) sec INR 0.9 (<1.2) APTT 20.5 L (22.0-30.0) sec Sodium (137-145) mmol/L Potassium (3.5-5.1) mmol/L Chloride (98-107) mmol/L Carbon Dioxide (22-30) mmol/L Anion Gap mmol/L BUN (7-17) mg/dL Creatinine (0.52-1.04) mg/dL Est GFR (CKD-EPI)AfAm (>60 ml/min/1.73 sqM) Est GFR (CKD-EPI)NonAf (>60 ml/min/1.73 sqM) Glucose (74-99) mg/dL Calcium (8.4-10.2) mg/dL Total Bilirubin (0.2-1.3) mg/dL AST (14-36) U/L ALT (4-34) U/L Alkaline Phosphatase (38-126) U/L Troponin I (0.000-0.034) ng/mL NT-Pro-B Natriuret Pep pg/mL Total Protein (6.3-8.2) g/dL Albumin (3.5-5.0) g/dL Influenza Type A (PCR) Not Detected (Not Detectd) Influenza Type B (PCR) Not Detected (Not Detectd) RSV (PCR) Not Detected (Not Detectd) SARS-CoV-2 (PCR) Not Detected (Not Detectd) 03/24/23 03/24/23 Range/Units 15:17 15:17 WBC (3.8-10.6) k/uL RBC (3.80-5.40) m/uL Hgb (11.4-16.0) gm/dL Hct (34.0-46.0) % MCV (80.0-100.0) fL MCH (25.0-35.0) pg MCHC (31.0-37.0) g/dL RDW (11.5-15.5) % Plt Count (150-450) k/uL MPV Neutrophils % % Lymphocytes % % Monocytes % % Eosinophils % % Basophils % % Neutrophils # (1.3-7.7) k/uL Lymphocytes # (1.0-4.8) k/uL Monocytes # (0-1.0) k/uL Eosinophils # (0-0.7) k/uL Basophils # (0-0.2) k/uL Hypochromasia PT (10.0-12.5) sec INR (<1.2) APTT (22.0-30.0) sec Sodium 138 (137-145) mmol/L Potassium 5.1 (3.5-5.1) mmol/L Chloride 101 (98-107) mmol/L Carbon Dioxide 27 (22-30) mmol/L Anion Gap 10 mmol/L BUN 16 (7-17) mg/dL Creatinine 0.90 (0.52-1.04) mg/dL Est GFR (CKD-EPI)AfAm 79 (>60 ml/min/1.73 sqM) Est GFR (CKD-EPI)NonAf 69 (>60 ml/min/1.73 sqM) Glucose 113 H (74-99) mg/dL Calcium 9.4 (8.4-10.2) mg/dL Total Bilirubin 0.5 (0.2-1.3) mg/dL AST 39 H (14-36) U/L ALT 35 H (4-34) U/L Alkaline Phosphatase 475 H (38-126) U/L Troponin I <0.012 (0.000-0.034) ng/mL NT-Pro-B Natriuret Pep 906 pg/mL Total Protein 6.6 (6.3-8.2) g/dL Albumin 3.4 L (3.5-5.0) g/dL Influenza Type A (PCR) (Not Detectd) Influenza Type B (PCR) (Not Detectd) RSV (PCR) (Not Detectd) SARS-CoV-2 (PCR) (Not Detectd) - EKG Data EKG Comments: 12-lead Electrocardiogram Interpretation Note EKG was reviewed and interpreted by myself. 12-lead ECG performed at 1553 is interpreted by me as revealing normal sinus rhythm at a rate of 97 beats per minute. [place] is normal. [place] interval is 151 ms, QRS duration is 82 ms, QTc is 390 ms.. There were no ST or T wave abnormalities to suggest myocardial ischemia or injury. R wave progression across the precordium was satisfactory. By my interpretation this EKG is non-diagnostic for acute ischemia. (Derick Quan) Disposition <Parish Moses - Last Filed: 03/24/23 14:45> Time of Disposition: 19:34 <Derick Quan - Last Filed: 03/24/23 22:34> Clinical Impression: Pneumonia, Hypoxia, COPD exacerbation Disposition: ADMITTED IP TO THIS HOSP Condition: Stable
--- NOTE | 2023-03-24 15:11 | XR ---
EXAMINATION TYPE: XR chest 2V DATE OF EXAM: 03/24/2023 COMPARISON: 03/14/2023 INDICATION: Short of breath TECHNIQUE: Frontal and lateral views of the chest are obtained. FINDINGS: The heart size is normal. The pulmonary vasculature is normal. Left lower lobe infiltrate is present. Correlate for atelectasis and pneumonia.. IMPRESSION: 1. Persistent left lower lobe infiltrate. Correlate for atelectasis and pneumonia. Continued follow-u p is recommended
[2023-03-24 16:40] LABS: ALT 35 U/L (4-34); AST 39 U/L (14-36); African American GFR (CKD) 79 (>60 ml/min/1.73 sqM); Albumin 3.4 g/dL (3.5-5.0); Alkaline Phosphatase 475 U/L (38-126); Anion Gap 10 mmol/L; Blood Urea Nitrogen 16 mg/dL (7-17); Calcium 9.4 mg/dL (8.4-10.2); Carbon Dioxide 27 mmol/L (22-30); Chloride 101 mmol/L (98-107); Glucose 113 mg/dL (74-99); Non-African American GFR(CKD) 69 (>60 ml/min/1.73 sqM); Potassium 5.1 mmol/L (3.5-5.1); Sodium 138 mmol/L (137-145); Total Bilirubin 0.5 mg/dL (0.2-1.3); Total Protein 6.6 g/dL (6.3-8.2)
[2023-03-24 16:49] LABS: NT-Pro-B-Type Natriuretic Pept 906 pg/mL
[2023-03-24 16:53] LABS: INR 0.9 (<1.2); Prothrombin Time 10.3 sec (10.0-12.5)
[2023-03-24 16:57] LABS: Partial Thromboplastin Time 20.5 sec (22.0-30.0)
[2023-03-24 17:18] LABS: Basophils # (A) 0.1 k/uL (0-0.2); Basophils % (A) 0 %; Eosinophils % (A) 0 %; HGB 11.3 gm/dL (11.4-16.0); Hypochromasia Marked; Lymphocytes # (A) 1.5 k/uL (1.0-4.8); Lymphocytes % (A) 7 %; MCH 28.6 pg (25.0-35.0); MCHC 29.6 g/dL (31.0-37.0); MCV 96.7 fL (80.0-100.0); Mean Platelet Volume 10.5; Monocytes # (A) 0.4 k/uL (0-1.0); Monocytes % (A) 2 %; Neutrophils # (A) 18.5 k/uL (1.3-7.7); Neutrophils % (A) 90 %; Platelet Count 436 k/uL (150-450); RBC 3.93 m/uL (3.80-5.40); RDW 15.9 % (11.5-15.5); WBC 20.6 k/uL (3.8-10.6)
[2023-03-24] MEDS ORDERED: IPRATROPIUM-ALBUTEROL 3 ML NEB INHALATION STA (18:54)
[2023-03-24] MEDS ORDERED: AZITHROMYCIN 500 MG in SODIUM CHLORIDE 0.9% 250 ML IVPB STA (19:40)
[2023-03-24] MEDS ORDERED: PNEUMONIA PROTOCOL UTILIZED 1 EACH MISC PO PRN (19:40)
[2023-03-24] MEDS ORDERED: CEFEPIME 2 GM in SODIUM CHLORIDE 0.9% 100 ML IVPB STA (19:40)
[2023-03-24] MEDS ORDERED: NALOXONE 0.4 MG/ML 1 ML VIAL IV PRN ×2 (19:50→21:16)
[2023-03-24] MEDS ORDERED: IPRATROPIUM-ALBUTEROL 3 ML NEB INHALATION SCH (20:00)
--- NOTE | 2023-03-24 20:51 | P.HPIM ---
History of Present Illness H&P Date: 03/24/23 Chief Complaint: sob 62-year-old female with a past medical history of of COPD with chronic hypoxic respiratory failure on continuous oxygen with 2 L O2 via nasal cannula, obs tructive sleep apnea, recent left femoral neck fracture requiring surgical intervention, recent C. diff colitis, chronic cholecystitis, history of renal cancer status post nephrectomy. She presented to the emergency department on 03/14/23 from home with a chief complaint of increased shortness of breath. It is associated with cough productive of yellow phlegm. The emergency department was 86% on room air. She denied having any chest pain or abdominal pain. No fevers or chills. No sick contacts. She was admitted for COPD exacerbation last month. Was treated with steroids and breathing treatment. The emergency department she required 2 L acute process above 90%. She normally uses oxygen during sleep with CPAP at home. Chest x-ray showed left lower lobe infiltrates was admitted for further evaluation and management. Review of Systems Complete review of system performed, pertinent positives according to HPI, otherwise negative Past Medical History Past Medical History: Asthma, COPD, GERD/Reflux, Hyperlipidemia, Liver Disease, Sleep Apnea/CPAP/BIPAP Additional Past Medical History / Comment(s): hx internal hemorrhoid, kidney CA with right nephrectomy, CPAP use, colitis, IBS History of Any Multi-Drug Resistant Organisms: None Reported Past Surgical History: Hysterectomy Additional Past Surgical History / Comment(s): right nephrectomy 04/11/22 Past Anesthesia/Blood Transfusion Reactions: No Reported Reaction Past Psychological History: Anxiety, Bipolar, Depression Smoking Status: Former smoker Past Alcohol Use History: None Reported Past Drug Use History: None Reported Medications and Allergies Home Medications Medication Instructions Recorded Confirmed Type Ziprasidone [Geodon] 40 mg PO DAILY@0530 02/07/14 03/24/23 History Albuterol Inhaler [Ventolin Hfa 2 puff INHALATION RT-Q6H PRN 11/07/17 03/24/23 History Inhaler] Mesalamine [Delzicol] 800 mg PO TID@0530,1200,1730 11/07/17 03/24/23 History Albuterol Nebulized [Ventolin 2.5 mg INHALATION RT-QID PRN 07/03/22 03/24/23 History Nebulized] Atorvastatin Calcium [Lipitor] 40 mg PO HS@1730 07/03/22 03/24/23 History Levothyroxine Sodium [Synthroid] 112 mcg PO DAILY@0530 07/03/22 03/24/23 History Multivitamins, Thera [Multivitamin 1 tab PO DAILY@0530 07/03/22 03/24/23 History (formulary)] Ziprasidone [Geodon] 60 mg PO HS@1730 07/03/22 03/24/23 History buPROPion HCL [Wellbutrin SR] 200 mg PO BID@0530,1730 07/03/22 03/24/23 History Midodrine [ProAmatine] 10 mg PO AC-TID #120 tab 07/07/22 03/24/23 Rx Cyanocobalamin (Vitamin B-12) 1,000 mcg PO BID@0530,1730 01/15/23 03/24/23 History [Vitamin B-12] Fluticasone/Umeclidin/Vilanter 1 puff INHALATION RT-DAILY 01/15/23 03/24/23 History [Trelegy Ellipta 100-62.5-25] Pantoprazole [Protonix] 40 mg PO BID@0530,1730 02/27/23 03/24/23 History ALPRAZolam [Xanax] 0.5 mg PO DAILY@0530 #6 tab 03/06/23 03/24/23 Rx Propranolol [Inderal] 20 mg PO BID@0530,1730 03/14/23 03/24/23 History HYDROcodone/APAP 7.5-325MG [[place] 1 tab PO TID PRN #9 tab 03/17/23 03/24/23 Rx 7.5-325] Magnesium Oxide [Mag-Ox] 800 mg PO BID@0530,1730 30 Days 03/17/23 03/24/23 Rx #60 tab Sodium Bicarbonate Tab 650 mg PO BID@0530,1730 30 Days 03/17/23 03/24/23 Rx #60 tab predniSONE See Taper PO DIRECTED 12 Days 03/17/23 03/24/23 Rx #30 tab Lidocaine 4% Patch 1 patch TRANSDERM DAILY 03/24/23 03/24/23 History Allergies Allergy/AdvReac Type Severity Reaction Status Date / Time codeine Allergy Rash/Hives Verified 03/24/23 14:34 Penicillins Allergy Rash/Hives Verified 03/24/23 14:34 on feet Sulfa (Sulfonamide Allergy Rash/Hives Verified 03/24/23 14:34 Antibiotics) ibuprofen [From Motrin] AdvReac Nausea & Verified 03/24/23 14:34 Vomiting Physical Exam Vitals: Vital Signs Temp Pulse Resp BP Pulse Ox 03/24/23 20:09 102 H 92 L 03/24/23 19:35 87 L 03/24/23 19:15 100 03/24/23 19:03 104 H 03/24/23 19:00 20 03/24/23 14:34 97.6 F 100 16 147/77 90 L Intake and Output 03/24/23 03/24/23 03/24/23 06:59 14:59 22:59 Other: Weight 62.596 kg Constitutional: No acute distress, conversant, pleasant Eyes:Anicteric sclerae, moist conjunctiva, no lid-lag, PERRLA, ENMT: Oropharynx clear, no erythema, exudates Neck: Supple, FROM, no masses, or JVD, No carotid bruits, No thyromegaly Lungs: Bilateral rhonchi and wheezes especially on expiration, Clear to percussion, Normal respiratory effort, no accessory muscle use Cardiovascular: Heart regular in rate and rhythm, No murmurs, gallops, or rubs, No peripheral edema Abdominal: Soft, Nontender, no guarding, rebound or rigidity, Normoactive bowel sounds, No hepatomegaly, No splenomegaly, No palpable mass Skin: Normal temperature, tone, texture, turgor, no induration, No subcutaneous nodules, No rash, lesions, No ulcers Extremities: No digital cyanosis, No clubbing, Pedal pulses intact and symmetrical, Radial pulses intact and symmetrical, No calf tenderness Psychiatric: Alert and oriented to person, place and time, appropriate affect, intact judgement Neuro: Muscles Strength 5/5 in all 4 extremities, Sensation to light touch grossly present throughout, Cranial nerves II-XII grossly intact, no focal senso ry deficits Results CBC & Chem 7: 03/24/23 15:17 03/24/23 15:17 Labs: Abnormal Lab Results - Last 24 Hours (Table) 03/24/23 03/24/23 03/24/23 Range/Units 15:17 15:17 15:17 WBC 20.6 H (3.8-10.6) k/uL Hgb 11.3 L (11.4-16.0) gm/dL MCHC 29.6 L (31.0-37.0) g/dL RDW 15.9 H (11.5-15.5) % Neutrophils # 18.5 H (1.3-7.7) k/uL APTT 20.5 L (22.0-30.0) sec Glucose 113 H (74-99) mg/dL AST 39 H (14-36) U/L ALT 35 H (4-34) U/L Alkaline Phosphatase 475 H (38-126) U/L Albumin 3.4 L (3.5-5.0) g/dL Assessment and Plan Plan: COPD exacerbation Acute on chronic hypoxic respiratory failure Healthcare associated pneumonia Sepsis Leukocytosis -Bronchodilators -Start broad-spectrum antibiotics with cefepime and Vanco -Check MRSA screen, blood cultures and sputum cultures -Solu-Medrol 40 mg IV every 8 hours -Continue home trelegy -Pulmonology consult Recent left femoral neck fracture status post surgery Recent C. diff colitis -finished a two-week course of oral vancomycin recently, monitor for recurrence Chronic: Psychotic disorder History of chronic cholecystitis History of renal cancer status post nephrectomy DVT ppx: lovenox Admit to inpatient Expected length of stay more than 2 midnights
[2023-03-24] MEDS: methylPREDNISolone SOD SUCCI 40 MG/ML 1 ML VIAL IV SCH (21:07)
[2023-03-24] MEDS ORDERED: IPRATROPIUM-ALBUTEROL 3 ML NEB INHALATION PRN (21:12)
[2023-03-24] MEDS ORDERED: VANCOMYCIN IV PER PHARMACY 1 EACH MISC MISCELLANE PRN (21:12)
[2023-03-24] MEDS ORDERED: SODIUM CHLORIDE 0.9% 1,000 ML IV STA (21:16)
[2023-03-24] MEDS ORDERED: VANCOMYCIN 1,250 MG in SODIUM CHLORIDE 0.9% 250 ML IVPB STA (21:32)
[2023-03-24] MEDS: HYDROcodone/APAP 7.5-325MG 1 EACH TAB PO PRN (21:33)
[2023-03-24] MEDS: ENOXAPARIN 40 MG/0.4 ML SYRINGE SQ SCH (22:27)
--- NOTE | 2023-03-25 03:23 | US ---
EXAM: US Duplex Left Lower Extremity Veins CLINICAL HISTORY: ITS.REASON US Reason: eval for dvt TECHNIQUE: Real-time duplex ultrasound scan of the left lower extremity veins integrating B-mode two-dimensional vascular structure, Doppler spectral analysis, color flow Doppler imaging and compression. COMPARISON: No relevant prior studies available. FINDINGS: Deep veins: Unremarkable. No DVT in the visualized common femoral, femoral, proximal deep femoral or popliteal veins. The veins demonstrate normal color flow, are normally compressible, with normal phasic flow and/or augmentation response. Soft tissues: No acute findings. No popliteal cyst. IMPRESSION: No evidence of left lower extremity deep venous thrombosis.
[2023-03-25] MEDS: CEFEPIME 2 GM in SODIUM CHLORIDE 0.9% 100 ML IVPB SCH ×2 (04:17→12:05)
[2023-03-25] MEDS: HYDROcodone/APAP 7.5-325MG 1 EACH TAB PO PRN ×3 (05:17→20:33)
[2023-03-25] MEDS: LEVOTHYROXINE 112 MCG TAB PO SCH (05:18)
[2023-03-25] MEDS: CYANOCOBALAMIN 500 MCG TAB PO SCH ×2 (05:18→18:10)
[2023-03-25] MEDS: MAGNESIUM OXIDE 400 MG TAB PO SCH ×2 (05:18→18:10)
[2023-03-25] MEDS: ZIPRASIDONE 40 MG CAP PO SCH (05:19)
[2023-03-25] MEDS: BALSALAZIDE DISODIUM 750 MG CAPSULE PO SCH ×3 (05:19→18:10)
[2023-03-25] MEDS: buPROPion SR 100 MG TABLET.ER PO SCH ×2 (05:19→18:10)
[2023-03-25] MEDS: PROPRANOLOL 20 MG TAB PO SCH ×2 (05:19→18:10)
[2023-03-25] MEDS: PANTOPRAZOLE 40 MG TABLET PO SCH ×2 (05:23→18:10)
[2023-03-25] MEDS: ALPRAZolam 0.5 MG TAB PO SCH (05:25)
[2023-03-25] MEDS ORDERED: IPRATROPIUM 0.5 MG/2.5 ML NEBU INHALATION SCH (08:00)
[2023-03-25] MEDS: SYMBICORT 80-4.5 MCG INHALER INHALATION SCH ×2 (08:04→21:58)
[2023-03-25] MEDS: IPRATROPIUM-ALBUTEROL 3 ML NEB INHALATION SCH ×4 (08:04→21:59)
[2023-03-25 08:12] LABS: Basophils % (A) 0 %; Eosinophils % (A) 0 %; HCT 33.3 % (34.0-46.0); HGB 10.3 gm/dL (11.4-16.0); Hypochromasia Marked; Lymphocytes # (A) 1.8 k/uL (1.0-4.8); Lymphocytes % (A) 10 %; MCH 29.6 pg (25.0-35.0); MCV 95.7 fL (80.0-100.0); Mean Platelet Volume 8.6; Monocytes # (A) 0.6 k/uL (0-1.0); Monocytes % (A) 3 %; Neutrophils # (A) 15.5 k/uL (1.3-7.7); Neutrophils % (A) 86 %; Platelet Count 366 k/uL (150-450); RBC 3.48 m/uL (3.80-5.40); RDW 15.9 % (11.5-15.5)
[2023-03-25 08:22] LABS: African American GFR (CKD) 86 (>60 ml/min/1.73 sqM); Anion Gap 8 mmol/L; Blood Urea Nitrogen 16 mg/dL (7-17); Carbon Dioxide 27 mmol/L (22-30); Chloride 104 mmol/L (98-107); Glucose 90 mg/dL (74-99); Non-African American GFR(CKD) 74 (>60 ml/min/1.73 sqM); Potassium 4.6 mmol/L (3.5-5.1); Sodium 139 mmol/L (137-145)
[2023-03-25] MEDS: methylPREDNISolone SOD SUCCI 40 MG/ML 1 ML VIAL IV SCH ×2 (08:50→20:34)
--- NOTE | 2023-03-25 09:09 | XR ---
EXAMINATION TYPE: XR chest 1V portable DATE OF EXAM: 03/25/2023 Comparison: 03/24/2023 Clinical History: 62-year-old female pneumonia Findings: Heart normal size. Patchy left basilar opacity and possible trace effusion appears slightly increased . Impression: Slight increasing patchy left basilar consolidation and possible trace effusion.
[2023-03-25] MEDS ORDERED: VANCOMYCIN 1,250 MG in SODIUM CHLORIDE 0.9% 250 ML IVPB SCH (14:00)
--- NOTE | 2023-03-25 14:19 | P.CNPUL ---
History of Present Illness Consult date: 03/25/23 Requesting physician: Graciela Neumann Reason for consult: dyspnea Chief complaint: Shortness of breath History of present illness: This a pleasant 62-year-old female patient with a known history of chronic obstructive pulmonary disease with an FEV1 value 63% of predicted, former smoker quit approximately 1 year ago, obstructive sleep apnea maintained on CPAP at 12 cm of water, renal cell carcinoma with previous right nephrectomy, hypothyroidism, gastroesophageal reflux disease, anxiety, bipolar, depression, previous fall and left displaced femoral neck fracture requiring a left hip hem iarthroplasty on 02/28/2023. Since then she had been readmitted with a COPD exacerbation and discharged home again on 03/17/2023. She represented to the emergency room again yesterday with complaints of increasing shortness of breath, cough and congestion. Stating her pulse ox was 85% on her home O2 X-ray compared to 03/14/2023 show persistent left lower lobe atelectasis. Doppler of the left lower extremity revealed no evidence of DVT. White count 18.0. Hemoglobin 10.3. Platelets 366. Sodium 139. Potassium 4.6. Bicarb 27. BUN 16. Creatinine 0.84. Pro-calcitonin negative at 0.05. Her viral screen was negative. Legionella screen negative. She is seen today in consultation in the emergency department. Currently sitting up on a stretcher. Awake and alert in no acute distress. Maintaining good O2 saturations in the mid 90s on 2 L/m per nasal cannula. She's afebrile. Hemodynamically stable. She's been initiated on DuoNeb inhalations, Symbicort, Solu-Medrol and antibiotics in the form of azithromycin, vancomycin and cefepime. Lovenox for DVT prophylaxis. Review of Systems REVIEW OF SYSTEMS: CONSTITUTIONAL: Denies any recent significant weight loss or weight gain. EYES: Denies change in vision. EARS, NOSE, MOUTH, THROAT: Denies headaches, denies sore throat. CARDIOVASCULAR: Denies chest pain, palpitations or syncopal episodes. RESPIRATORY: Positive for shortness of breath, cough, congestion no hemoptysis. GASTROINTESTINAL: Denies change in appetite, denies abdominal pain GENITOURINARY: Denies hematuria, denies infections. MUSKULOSKELETAL: Denies pain, denies swelling. INTEGUMENTARY: Denies rash, denies eczema. NEUROLOGICAL: Denies recent memory loss, no recent seizure activity. PSYCHIATRIC: Denies anxiety, denies depression. HEMATOLOGIC/LYMPHATIC: Denies anemia, denies enlarged lymph nodes. Past Medical History Past Medical History: Asthma, COPD, GERD/Reflux, Hyperlipidemia, Liver Disease, Sleep Apnea/CPAP/BIPAP Additional Past Medical History / Comment(s): hx internal hemorrhoid, kidney CA with right nephrectomy, CPAP use, colitis, IBS History of Any Multi-Drug Resistant Organisms: None Reported Past Surgical History: Hysterectomy Additional Past Surgical History / Comment(s): right nephrectomy 04/11/22 Past Anesthesia/Blood Transfusion Reactions: No Reported Reaction Past Psychological History: Anxiety, Bipolar, Depression Smoking Status: Former smoker Past Alcohol Use History: None Reported Past Drug Use History: None Reported Medications and Allergies Home Medications Medication Instructions Recorded Confirmed Type Ziprasidone [Geodon] 40 mg PO DAILY@0530 02/07/14 03/24/23 History Albuterol Inhaler [Ventolin Hfa 2 puff INHALATION RT-Q6H PRN 11/07/17 03/24/23 History Inhaler] Mesalamine [Delzicol] 800 mg PO TID@0530,1200,1730 11/07/17 03/24/23 History Albuterol Nebulized [Ventolin 2.5 mg INHALATION RT-QID PRN 07/03/22 03/24/23 History Nebulized] Atorvastatin Calcium [Lipitor] 40 mg PO HS@17307/03/22 03/24/23 History Levothyroxine Sodium [Synthroid] 112 mcg PO DAILY@0530 07/03/22 03/24/23 History Multivitamins, Thera [Multivitamin 1 tab PO DAILY@30 07/03/22 03/24/23 History (formulary)] Ziprasidone [Geodon] 60 mg PO HS@172907/03/22 03/24/23 History buPROPion HCL [Wellbutrin SR] 200 mg PO BID@0530,17307/03/22 03/24/23 History Midodrine [ProAmatine] 10 mg PO AC-TID #120 tab 07/07/22 03/24/23 Rx Cyanocobalamin (Vitamin B-12) 1,000 mcg PO BID@0530,1730 01/15/23 03/24/23 History [Vitamin B-12] Fluticasone/Umeclidin/Vilanter 1 puff INHALATION RT-DAILY 01/15/23 03/24/23 History [Trelegy Ellipta 100-62.5-25] Pantoprazole [Protonix] 40 mg PO BID@0530,1730 02/27/23 03/24/23 History ALPRAZolam [Xanax] 0.5 mg PO DAILY@0530 #6 tab 03/06/23 03/24/23 Rx Propranolol [Inderal] 20 mg PO BID@0530,1730 03/14/23 03/24/23 History HYDROcodone/APAP 7.5-325MG [[place] 1 tab PO TID PRN #9 tab 03/17/23 03/24/23 Rx 7.5-325] Magnesium Oxide [Mag-Ox] 800 mg PO BID@0530,1730 30 Days 03/17/23 03/24/23 Rx #60 tab Sodium Bicarbonate Tab 650 mg PO BID@30,1730 30 Days 03/17/23 03/24/23 Rx #60 tab predniSONE See Taper PO DIRECTED 12 Days 03/17/23 03/24/23 Rx #30 tab Lidocaine 4% Patch 1 patch TRANSDERM DAILY 03/24/23 03/24/23 History Allergies Allergy/AdvReac Type Severity Reaction Status Date / Time codeine Allergy Rash/Hives Verified 03/24/23 14:34 Penicillins Allergy Rash/Hives Verified 03/24/23 14:34 on feet Sulfa (Sulfonamide Allergy Rash/Hives Verified 03/24/23 14:34 Antibiotics) ibuprofen [From Motrin] AdvReac Nausea & Verified 03/24/23 14:34 Vomiting Physical Exam Vitals: Vital Signs Temp Pulse Resp BP Pulse Ox 03/25/23 11:59 92 03/25/23 11:45 96 03/25/23 08:16 80 03/25/23 08:04 76 93 L 03/25/23 07:46 73 18 121/74 93 L 03/25/23 05:27 97.2 F L 103 H 18 123/80 97 03/25/23 00:42 102 H 20 142/86 92 L 03/24/23 22:11 92 03/24/23 22:01 96 03/24/23 20:09 102 H 92 L 01/05/24 19:35 87 L 03/24/23 19:15 100 03/24/23 19:03 104 H 03/24/23 19:00 20 03/24/23 14:34 97.6 F 100 16 147/77 90 L GENERAL EXAM: Alert, pleasant 62-year-old female, 2 L nasal cannula, comfortable in no apparent distress. HEAD: Normocephalic. EYES: Normal reaction of pupils, equal size. NOSE: Clear with pink turbinates. THROAT: No erythema or exudates. NECK: No masses, no JVD. CHEST: No chest wall deformity. LUNGS: Equal air entry with faint crackle in the left base. CVS: S1 and S2 normal with no audible murmur, regular rhythm. ABDOMEN: No hepatosplenomegaly, normal bowel sounds, no guarding or rigidity. SPINE: No scoliosis or deformity SKIN: No rashes CENTRAL NERVOUS SYSTEM: No focal deficits, tone is normal in all 4 extremities. EXTREMITIES: There is no peripheral edema. No clubbing, no cyanosis. Peripheral pulses are intact. Results - Laboratory Findings CBC and BMP: 03/25/23 07:48 03/25/23 07:48 PT/INR, D-dimer PT 10.3 sec (10.0-12.5) 03/24/23 15:17 INR 0.9 (<1.2) 03/24/23 15:17 Abnormal lab findings: Abnormal Labs 03/24/23 03/24/23 03/24/23 15:17 15:17 15:17 WBC 20.6 H RBC Hgb 11.3 L Hct MCHC 29.6 L RDW 15.9 H Neutrophils # 18.5 H APTT 20.5 L Glucose 113 H AST 39 H ALT 35 H Alkaline Phosphatase 475 H Albumin 3.4 L 03/25/23 07:48 WBC 18.0 H RBC 3.48 L Hgb 10.3 L Hct 33.3 L MCHC RDW 15.9 H Neutrophils # 15.5 H APTT Glucose AST ALT Alkaline Phosphatase Albumin - Diagnostic Findings Chest x-ray: image reviewed Assessment and Plan Assessment: Acute on chronic hypoxemic respiratory failure secondary to an acute exacerbation of COPD. Viral screen negative. Legionella screen negative. Pro- calcitonin negative, chest x-ray showed chronic changes in the left lower lobe Frequent admissions, this is her third admission within the month Chronic hypoxemic respiratory failure mainly utilizing oxygen at night through her CPAP Obstructive sleep apnea utilizing CPAP at 12 cm water Former smoker, quit 1 year ago Leukocytosis, possibly steroid driven History of anxiety/depression History of bipolar disorder Hyperlipidemia History of gastroesophageal reflux disease Hypothyroidism Subcentimeter pulmonary nodule and earlier CAT scan of the chest on 07/04/2022 showed a few pulmonary nodules measuring up to 8 mm in size. These nodules within the left upper lobe right lower lobe and the right upper lobe. The repeat CAT scan of the chest that was done on 03/14/2023 showed a 14 x 8 mm subpleural lesion in the superior segment of the left lower lobe. Pulmonary nodules being followed up on outpatient basis History of renal cell carcinoma, patient underwent an nephrectomy at [facility] in [place] on April 11, 2022, due to reported renal carcinoma. Patient is currently taking combination of Cabometyx and Nivolumab. Recent fall with a left displaced femoral neck fracture and the patient underw ent a left hip arthroplasty on 02/28/2023. L1 compression fracture, offered a TLSO brace with ongoing chronic back pain C. diff colitis, treated with oral vancomycin, currently inactive and stable Plan: The patient was seen and evaluated Chest x-rays, labs and medications reviewed Procalcitonin 0.05 Discontinue antibiotics Continue bronchodilators, steroids Lovenox for DVT prophylaxis Titrate her FiO2 as tolerated We will continue to follow and make further recommendations based on her clini shey status I have personally seen and examined the patient, performed the documentation and the assessment and plan as written. Number of minutes spent on the visit: 20.
--- NOTE | 2023-03-25 15:47 | P.PN ---
Subjective Progress Note Date: 03/25/23 Hospital Course: 62-year-old female with a past medical history of of COPD with chronic hypoxic respiratory failure on continuous oxygen with 2 L O2 via nasal cannula, obstructive sleep apnea, recent left femoral neck fracture requiring surgical intervention, recent C. diff colitis, chronic cholecystitis, history of renal cancer status post nephrectomy. She presented to the emergency department on 03/14/23 from home with a chief complaint of increased shortness of breath. Patient was hypoxic on room air. Chest x-ray concerning for left lower lobe infiltrate. Laboratory workup showed WBC of 20.6, negative troponin, proBNP 906, respiratory viral panel was negative. Pulmonology was consulted. Likely COPD exacerbation, unlikely to be pneumonia. Subjective: Patient seen and examined at bedside. No acute events overnight. Respiratory function is improved. Pertinent positives and negatives as discussed above, a complete review of systems was performed and all other systems are negative. Vitals Signs Reviewed. General: nontoxic, no distress, appears at stated age, chronically ill-appearing Derm: warm, dry Head: atraumatic, normocephalic, symmetric Eyes: EOMI, no lid lag, anicteric sclera Mouth: no lip lesion, mucus membranes moist Cardiovascular: S1S2 reg, no murmur Lungs: CTA bilateral, no rhonchi, no rales , no accessory muscle use, supplemental oxygen Abdominal: soft, nontender to palpation, no guarding, no appreciable organomegaly Ext: no gross muscle atrophy, no edema, no contractures Neuro: CN II-XI grossly intact, no focal neuro deficits Psych: Alert, oriented, appropriate affect Data Reviewed Today: Pertinent Labs: WBC 18, hemoglobin 10.3, creatinine 0.84, pro calcitonin 0.05, urine Legionella antigen negative Imaging: Chest x-ray independently interpreted, no significant opacity lower extremity Doppler did not show any DVTs Assessment and Plan: Active: Acute on chronic hypoxic respiratory failure COPD exacerbation Leukocytosis -Pulmonology was reviewed, unlikely to be pneumonia, given recent C. diff infection, hold off antibiotic -Continue Symbicort twice a day, DuoNeb 4 times a day, every 2 hours as needed, Solu-Medrol 40 mg to 12 hours IV, monitor fermentation changes -Repeat CBC tomorrow Recent left femoral neck fracture status post surgery Recent C. diff colitis -finished a two-week course of oral vancomycin recently, monitor for recurrence Chronic pain- continue [place] 7.5 3 times a day when necessary, monitor for sedation Chronic: Psychotic disorder History of chronic cholecystitis History of renal cancer status post nephrectomy Hypothyroidism Dyslipidemia DVT ppx: Lovenox Code status: Full code Anticipated discharge place: Home Anticipated discharge time: 1-2 days Objective - Vital Signs Vital signs: Vital Signs Temp 98.0 F 03/25/23 14:09 Pulse 100 03/25/23 14:09 Resp 14 03/25/23 14:09 BP 136/80 03/25/23 14:09 Pulse Ox 95 03/25/23 14:09 FiO2 Intake & Output 03/24/23 03/25/23 03/25/23 18:59 06:59 18:59 Weight 62.596 kg 62.596 kg - Labs CBC & Chem 7: 03/25/23 07:48 03/25/23 07:48 Labs: Abnormal Lab Results - Last 24 Hours (Table) 03/24/23 03/24/23 03/24/23 Range/Units 15:17 15:17 15:17 WBC 20.6 H (3.8-10.6) k/uL RBC (3.80-5.40) m/uL Hgb 11.3 L (11.4-16.0) gm/dL Hct (34.0-46.0) % MCHC 29.6 L (31.0-37.0) g/dL RDW 15.9 H (11.5-15.5) % Neutrophils # 18.5 H (1.3-7.7) k/uL APTT 20.5 L (22.0-30.0) sec Glucose 113 H (74-99) mg/dL AST 39 H (14-36) U/L ALT 35 H (4-34) U/L Alkaline Phosphatase 475 H (38-126) U/L Albumin 3.4 L (3.5-5.0) g/dL 03/25/23 Range/Units 07:48 WBC 18.0 H (3.8-10.6) k/uL RBC 3.48 L (3.80-5.40) m/uL Hgb 10.3 L (11.4-16.0) gm/dL Hct 33.3 L (34.0-46.0) % MCHC (31.0-37.0) g/dL RDW 15.9 H (11.5-15.5) % Neutrophils # 15.5 H (1.3-7.7) k/uL APTT (22.0-30.0) sec Glucose (74-99) mg/dL AST (14-36) U/L ALT (4-34) U/L Alkaline Phosphatase (38-126) U/L Albumin (3.5-5.0) g/dL
--- NOTE | 2023-03-25 15:49 | P.PN ---
Progress Note - Text Progress Note Date: 03/25/23 Advanced Care Planning: Diagnoses: COPD Acute on chronic hypoxic respiratory failure Discussion: Person(s) present and participating in discussion: Patient Summary: Due to frequent hospitalizations, patient is at increased risk for further morbidity and mortality. This was communicated with the patient. Recommended outpatient palliative care follow-up, which patient agrees with. A total of 16 minutes of face to face time was spent discussing advanced care planning.
[2023-03-25] MEDS: ZIPRASIDONE 60 MG CAP PO SCH (18:10)
[2023-03-25] MEDS: ATORVASTATIN 40 MG TAB PO SCH (18:10)
[2023-03-25] MEDS: ENOXAPARIN 40 MG/0.4 ML SYRINGE SQ SCH (20:34)
[2023-03-25] MEDS ORDERED: AZITHROMYCIN 500 MG in SODIUM CHLORIDE 0.9% 250 ML IVPB SCH (21:00)
[2023-03-26] MEDS: HYDROcodone/APAP 7.5-325MG 1 EACH TAB PO PRN ×3 (04:34→19:27)
[2023-03-26] MEDS: MAGNESIUM OXIDE 400 MG TAB PO SCH ×2 (05:36→17:13)
[2023-03-26] MEDS: ALPRAZolam 0.5 MG TAB PO SCH (05:36)
[2023-03-26] MEDS: PANTOPRAZOLE 40 MG TABLET PO SCH ×2 (05:36→17:13)
[2023-03-26] MEDS: CYANOCOBALAMIN 500 MCG TAB PO SCH ×2 (05:37→17:13)
[2023-03-26] MEDS: LEVOTHYROXINE 112 MCG TAB PO SCH (05:37)
[2023-03-26] MEDS: ZINC OXIDE PASTE (Z-GUARD) 1 APPLIC TOPICAL PRN (05:54)
[2023-03-26] MEDS: buPROPion SR 100 MG TABLET.ER PO SCH ×2 (06:05→17:13)
[2023-03-26] MEDS: BALSALAZIDE DISODIUM 750 MG CAPSULE PO SCH ×3 (06:06→17:13)
[2023-03-26] MEDS: ZIPRASIDONE 40 MG CAP PO SCH (06:07)
[2023-03-26] MEDS: PROPRANOLOL 20 MG TAB PO SCH ×2 (06:07→17:13)
[2023-03-26 06:51] LABS: Anisocytosis Slight; Basophils % (A) 0 %; Eosinophils # (A) 0.1 k/uL (0-0.7); Eosinophils % (A) 0 %; HCT 33.5 % (34.0-46.0); HGB 10.4 gm/dL (11.4-16.0); Hypochromasia Marked; Lymphocytes # (A) 1.7 k/uL (1.0-4.8); Lymphocytes % (A) 9 %; MCH 29.9 pg (25.0-35.0); MCHC 30.9 g/dL (31.0-37.0); MCV 96.6 fL (80.0-100.0); Mean Platelet Volume 8.7; Monocytes # (A) 1.2 k/uL (0-1.0); Monocytes % (A) 6 %; Neutrophils # (A) 16.9 k/uL (1.3-7.7); Neutrophils % (A) 84 %; Platelet Count 359 k/uL (150-450); RBC 3.47 m/uL (3.80-5.40)
[2023-03-26 07:00] LABS: African American GFR (CKD) 79 (>60 ml/min/1.73 sqM); Non-African American GFR(CKD) 69 (>60 ml/min/1.73 sqM)
[2023-03-26] MEDS: SYMBICORT 80-4.5 MCG INHALER INHALATION SCH ×2 (09:12→22:07)
[2023-03-26] MEDS: IPRATROPIUM-ALBUTEROL 3 ML NEB INHALATION SCH ×4 (09:12→22:07)
[2023-03-26] MEDS: methylPREDNISolone SOD SUCCI 40 MG/ML 1 ML VIAL IV SCH ×2 (09:44→20:01)
--- NOTE | 2023-03-26 11:32 | P.PN ---
Subjective Progress Note Date: 03/26/23 Hospital Course: 62-year-old female with a past medical history of of COPD with chronic hypoxic respiratory failure on continuous oxygen with 2 L O2 via nasal cannula, obstructive sleep apnea, recent left femoral neck fracture requiring surgical intervention, recent C. diff colitis, chronic cholecystitis, history of renal cancer status post nephrectomy. She presented to the emergency department on 03/14/23 from home with a chief complaint of increased shortness of breath. Patient was hypoxic on room air. Chest x-ray concerning for left lower lobe infiltrate. Laboratory workup showed WBC of 20.6, negative troponin, proBNP 906, respiratory viral panel was negative. Pulmonology was consulted. Likely COPD exacerbation, unlikely to be pneumonia. Subjective: Patient seen and examined at bedside. No acute events overnight. Respiratory function is improved. Continues to have worsening back pain. Pertinent positives and negatives as discussed above, a complete review of systems was performed and all other systems are negative. Vitals Signs Reviewed. General: nontoxic, no distress, appears at stated age, chronically ill-appearing Derm: warm, dry Head: atraumatic, normocephalic, symmetric Eyes: EOMI, no lid lag, anicteric sclera Mouth: no lip lesion, mucus membranes moist Cardiovascular: S1S2 reg, no murmur Lungs: CTA bilateral, no rhonchi, no rales , no accessory muscle use, supplemental oxygen Abdominal: soft, nontender to palpation, no guarding, no appreciable organomegaly Ext: no gross muscle atrophy, no edema, no contractures Neuro: CN II-XI grossly intact, no focal neuro deficits Psych: Alert, oriented, appropriate affect Data Reviewed Today: Pertinent Labs: WBC 20, hemoglobin 1044, creatinine 0.9 Imaging: No new imaging Assessment and Plan: Active: Acute on chronic hypoxic respiratory failure COPD exacerbation Leukocytosis -Pulmonology following, unlikely to be pneumonia, given recent C. diff infection we will hold off antibiotic -Continue Symbicort twice a day, DuoNeb 4 times a day, every 2 hours as needed, Solu-Medrol 40 mg to 12 hours IV, monitor for mentation changes -Repeat CBC tomorrow Recent left femoral neck fracture status post surgery Recent C. diff colitis -finished a two-week course of oral vancomycin recently, monitor for recurrence Chronic low back pain-change [place] 7.5 to 4 times a day when necessary, monitor for sedation Chronic: Psychotic disorder History of chronic cholecystitis History of renal cancer status post nephrectomy Hypothyroidism Dyslipidemia DVT ppx: Lovenox Code status: Full code Anticipated discharge place: Home Anticipated discharge time: 1-2 days Objective - Vital Signs Vital signs: Vital Signs Temp 98.6 F 03/26/23 07:30 Pulse 88 03/26/23 09:27 Resp 15 03/26/23 07:30 BP 137/74 03/26/23 07:30 Pulse Ox 99 03/26/23 07:30 FiO2 Intake & Output 03/25/23 03/26/23 03/26/23 18:59 06:59 18:59 Weight 62.596 kg Other: # Voids 2 2 - Labs CBC & Chem 7: 03/26/23 06:22 03/26/23 06:22 Labs: Abnormal Lab Results - Last 24 Hours (Table) 03/26/23 Range/Units 06:22 WBC 20.0 H (3.8-10.6) k/uL RBC 3.47 L (3.80-5.40) m/uL Hgb 10.4 L (11.4-16.0) gm/dL Hct 33.5 L (34.0-46.0) % MCHC 30.9 L (31.0-37.0) g/dL RDW 16.0 H (11.5-15.5) % Neutrophils # 16.9 H (1.3-7.7) k/uL Monocytes # 1.2 H (0-1.0) k/uL Microbiology - Last 24 Hours (Table) 03/24/23 20:31 Blood Culture - Preliminary Blood 03/24/23 20:04 Blood Culture - Preliminary Blood
--- NOTE | 2023-03-26 13:51 | P.PN ---
Subjective Progress Note Date: 03/26/23 This a pleasant 62-year-old female patient with a known history of chronic obstructive pulmonary disease with an FEV1 value 63% of predicted, former smoker quit approximately 1 year ago, obstructive sleep apnea maintained on CPAP at 12 cm of water, renal cell carcinoma with previous right nephrectomy, hyp othyroidism, gastroesophageal reflux disease, anxiety, bipolar, depression, previous fall and left displaced femoral neck fracture requiring a left hip hemiarthroplasty on 02/28/2023. Since then she had been readmitted with a COPD exacerbation and discharged home again on 03/17/2023. She represented to the emergency room again yesterday with complaints of increasing shortness of breath, cough and congestion. Stating her pulse ox was 85% on her home O2 X-ray compared to 03/14/2023 show persistent left lower lobe atelectasis. Doppler of the left lower extremity revealed no evidence of DVT. White count 18.0. Hemoglobin 10.3. Platelets 366. Sodium 139. Potassium 4.6. Bicarb 27. BUN 16. Creatinine 0.84. Pro-calcitonin negative at 0.05. Her viral screen was negative. Legionella screen negative. She is seen today in consultation in the emergency department. Currently sitting up on a stretcher. Awake and alert in no acute distress. Maintaining good O2 saturations in the mid 90s on 2 L/m per nasal cannula. She's afebrile. Hemodynamically stable. She's been initiated on DuoNeb inhalations, Symbicort, Solu-Medrol and antibiotics in the form of azithromycin, vancomycin and cefepime. Lovenox for DVT prophylaxis. The patient is seen today 03/26/2023 in follow-up on the regular medical floor. She is currently sitting up in bed. Awake and alert in no acute distress. Feeling better today compared to yesterday. Maintaining O2 saturations in the 90s on 2 L/m per nasal cannula. Blood cultures revealed no growth. White count 20.0. Hemoglobin 10.4. Creatinine 0.90. She is continued on DuoNeb inhalations, Symbicort, Solu-Medrol. Lovenox for DVT prophylaxis. Objective - Vital Signs Vital signs: Vital Signs Temp 98.3 F 03/26/23 12:31 Pulse 81 03/26/23 12:31 Resp 12 03/26/23 12:31 BP 123/72 01/07/24 12:31 Pulse Ox 96 03/26/23 12:31 FiO2 Intake & Output 03/25/23 03/26/23 03/26/23 18:59 06:59 18:59 Weight 62.596 kg Other: # Voids 2 2 - Exam GENERAL EXAM: Alert, 62-year-old female, 2 L nasal cannula, in no apparent distress. HEAD: Normocephalic. EYES: Normal reaction of pupils, equal size. NOSE: Clear with pink turbinates. THROAT: No erythema or exudates. NECK: No masses, no JVD. CHEST: No chest wall deformity. LUNGS: Equal air entry with faint crackle in the left base, end expiratory wheeze. CVS: S1 and S2 normal with no audible murmur, regular rhythm. ABDOMEN: No hepatosplenomegaly, normal bowel sounds, no guarding or rigidity. SPINE: No scoliosis or deformity SKIN: No rashes CENTRAL NERVOUS SYSTEM: No focal deficits, tone is normal in all 4 extremities. EXTREMITIES: There is no peripheral edema. No clubbing, no cyanosis. Peripheral pulses are intact. - Labs CBC & Chem 7: 03/26/23 06:22 03/26/23 06:22 Labs: Abnormal Lab Results - Last 24 Hours (Table) 03/26/23 Range/Units 06:22 WBC 20.0 H (3.8-10.6) k/uL RBC 3.47 L (3.80-5.40) m/uL Hgb 10.4 L (11.4-16.0) gm/dL Hct 33.5 L (34.0-46.0) % MCHC 30.9 L (31.0-37.0) g/dL RDW 16.0 H (11.5-15.5) % Neutrophils # 16.9 H (1.3-7.7) k/uL Monocytes # 1.2 H (0-1.0) k/uL Microbiology - Last 24 Hours (Table) 03/24/23 20:31 Blood Culture - Preliminary Blood 03/24/23 20:04 Blood Culture - Preliminary Blood Assessment and Plan Assessment: Acute on chronic hypoxemic respiratory failure secondary to an acute exacerbation of COPD. Viral screen negative. Legionella screen negative. Pro- calcitonin negative, chest x-ray showed chronic changes in the left lower lobe Frequent admissions, this is her third admission within the month Chronic hypoxemic respiratory failure mainly utilizing oxygen at night through her CPAP Obstructive sleep apnea utilizing CPAP at 12 cm water Former smoker, quit 1 year ago Leukocytosis, possibly steroid driven History of anxiety/depression History of bipolar disorder Hyperlipidemia History of gastroesophageal reflux disease Hypothyroidism Subcentimeter pulmonary nodule and earlier CAT scan of the chest on 07/04/2022 showed a few pulmonary nodules measuring up to 8 mm in size. These nodules wit hin the left upper lobe right lower lobe and the right upper lobe. The repeat CAT scan of the chest that was done on 03/14/2023 showed a 14 x 8 mm subpleural lesion in the superior segment of the left lower lobe. Pulmonary nodules being followed up on outpatient basis History of renal cell carcinoma, patient underwent an nephrectomy at [facility] on April 11, 2022, due to reported renal carcinoma. Patient is currently taking combination of Cabometyx and Nivolumab. Recent fall with a left displaced femoral neck fracture and the patient underwent a left hip arthroplasty on 02/28/2023. L1 compression fracture, offered a TLSO brace with ongoing chronic back pain C. diff colitis, treated with oral vancomycin, currently inactive and stable Plan: The patient was seen and evaluated Labs and medications reviewed Continue bronchodilators, steroids Lovenox for DVT prophylaxis Titrate her FiO2 as tolerated Probable discharge in the a.m. We will continue to follow I have personally seen and examined the patient, performed the documentation and the assessment and plan as written. Number of minutes spent on the visit: 10.
[2023-03-26] MEDS: ATORVASTATIN 40 MG TAB PO SCH (17:12)
[2023-03-26] MEDS: ZIPRASIDONE 60 MG CAP PO SCH (17:13)
[2023-03-26] MEDS: ENOXAPARIN 40 MG/0.4 ML SYRINGE SQ SCH (20:01)
[2023-03-27] MEDS: HYDROcodone/APAP 7.5-325MG 1 EACH TAB PO PRN ×4 (01:20→18:48)
[2023-03-27] MEDS: CYANOCOBALAMIN 500 MCG TAB PO SCH ×2 (06:16→16:56)
[2023-03-27] MEDS: ALPRAZolam 0.5 MG TAB PO SCH (06:16)
[2023-03-27] MEDS: MAGNESIUM OXIDE 400 MG TAB PO SCH ×2 (06:16→16:56)
[2023-03-27] MEDS: BALSALAZIDE DISODIUM 750 MG CAPSULE PO SCH ×3 (06:17→16:56)
[2023-03-27] MEDS: LEVOTHYROXINE 112 MCG TAB PO SCH (06:17)
[2023-03-27] MEDS: ZIPRASIDONE 40 MG CAP PO SCH (06:18)
[2023-03-27] MEDS: buPROPion SR 100 MG TABLET.ER PO SCH ×2 (06:18→16:56)
[2023-03-27] MEDS: PROPRANOLOL 20 MG TAB PO SCH ×2 (06:18→16:56)
[2023-03-27] MEDS: PANTOPRAZOLE 40 MG TABLET PO SCH ×2 (06:25→16:56)
[2023-03-27] MEDS: ZINC OXIDE PASTE (Z-GUARD) 1 APPLIC TOPICAL PRN (06:26)
[2023-03-27 07:01] LABS: African American GFR (CKD) 80 (>60 ml/min/1.73 sqM); Non-African American GFR(CKD) 69 (>60 ml/min/1.73 sqM)
[2023-03-27] MEDS: IPRATROPIUM-ALBUTEROL 3 ML NEB INHALATION SCH ×4 (08:46→20:49)
[2023-03-27] MEDS: SYMBICORT 80-4.5 MCG INHALER INHALATION SCH ×2 (08:46→20:49)
[2023-03-27 08:50] LABS: HCT 35.1 % (37.2-46.3); HGB 10.3 g/dL (12.0-15.0); MCH 28.4 pg (27.0-32.0); MCHC 29.3 g/dL (32.0-37.0); MCV 96.7 FL (80.0-97.0); Mean Platelet Volume 11.3 FL (9.5-12.2); NRBC Per 100 WBC 0 X 10*3/uL (0.00-0.01); Platelet Count 359 X 10*3/uL (140-440); RBC 3.63 X 10*6/uL (4.10-5.20); RDW 15.9 % (11.5-14.5); WBC 17.52 X 10*3/uL (4.50-10.00)
[2023-03-27 08:51] LABS: Basophils # (A) 0.05 X 10*3/uL (0.00-0.10); Basophils % (A) 0.3 %; Eosinophils # (A) 0.01 X 10*3/uL (0.04-0.35); Eosinophils % (A) 0.1 %; Lymphocytes # (A) 2.47 X 10*3/uL (0.90-5.00); Lymphocytes % (A) 14.1 %; Monocytes # (A) 1.21 X 10*3/uL (0.20-1.00); Monocytes % (A) 6.9 %; Neutrophils # (A) 13.55 X 10*3/uL (1.80-7.70); Neutrophils % (A) 77.3 %
[2023-03-27] MEDS: methylPREDNISolone SOD SUCCI 40 MG/ML 1 ML VIAL IV SCH ×2 (08:55→21:16)
--- NOTE | 2023-03-27 14:32 | P.PN ---
Subjective Progress Note Date: 03/27/23 Principal diagnosis: COPD, pneumonia. This a pleasant 62-year-old female patient with a known history of chronic obstructive pulmonary disease with an FEV1 value 63% of predicted, former smoker quit approximately 1 year ago, obstructive sleep apnea maintained on CPAP at 12 cm of water, renal cell carcinoma with previous right nephrectomy, hypothyroidism, gastroesophageal reflux disease, anxiety, bipolar, depression, previous fall and left displaced femoral neck fracture requiring a left hip hemiarthroplasty on 02/28/2023. Since then she had been readmitted with a COPD exacerbation and discharged home again on 03/17/2023. She represented to the emergency room again yesterday with complaints of increasing shortness of breath, cough and congestion. Stating her pulse ox was 85% on her home O2 X-ray compared to 03/14/2023 show persistent left lower lobe atelectasis. Doppler of the left lower extremity revealed no evidence of DVT. White count 18.0. Hemoglobin 10.3. Platelets 366. Sodium 139. Potassium 4.6. Bicarb 27. BUN 16. Creatinine 0.84. Pro-calcitonin negative at 0.05. Her viral screen was negative. Legionella screen negative. She is seen today in consultation in the emergency department. Currently sitting up on a stretcher. Awake and alert in no acute distress. Maintaining good O2 saturations in the mid 90s on 2 L/m per nasal cannula. She's afebrile. Hemodynamically stable. She's been initiated on DuoNeb inhalations, Symbicort, Solu-Medrol and antibiotics in the form of azithromycin, vancomycin and cefepime. Lovenox for DVT prophylaxis. The patient is seen today 03/26/2023 in follow-up on the regular medical floor. She is currently sitting up in bed. Awake and alert in no acute distress. Feeling better today compared to yesterday. Maintaining O2 saturations in the 90s on 2 L/m per nasal cannula. Blood cultures revealed no growth. White count 20.0. Hemoglobin 10.4. Creatinine 0.90. She is continued on DuoNeb inhal ations, Symbicort, Solu-Medrol. Lovenox for DVT prophylaxis. Progress note dated 03/27/2023. This is a 62-year-old female seen in room 458. She's currently on 2 L of oxygen. She does have a history of COPD, for 40 years of tobacco use. She's not receiving any IV fluids. She sees my partner in our office, for COPD, and CPAP recommendations. Currently, the patient feels like her breathing is improved. Current labs include a white count of 17.5, hemoglobin 10.3, hematocrit 35.1, platelet count 359,000. Creatinine is 0.89. Pro-calcitonin level is 0.05. Urine Legionella antigen is negative. Chest x-ray shows a patchy area of consolidation, left base. Objective - Vital Signs Vital signs: Vital Signs Temp 98.2 F 03/27/23 07:12 Pulse 80 03/27/23 11:53 Resp 19 03/27/23 07:45 BP 152/85 03/27/23 07:12 Pulse Ox 97 03/27/23 08:46 FiO2 Intake & Output 03/26/23 03/27/23 03/27/23 18:59 06:59 18:59 Output Total 1 Balance -1 Output: Stool 1 Other: # Voids 2 2 - Exam No acute distress, oriented 3. No respiratory distress. Currently on 2 L. No audible wheezing or use of accessory muscles. HEENT examination is grossly unremarkable. Mucous membranes are moist. No oral lesions. Neck supple. Full range of motion. No adenopathy thyromegaly or neck vein distention. Cardiovascular examination reveals regular rhythm rate. S1-S2 normal. No S3 or S4. No discernible murmur noted. Heart rate 80 bpm. Lungs reveal rhonchi and mild expiratory wheezes. No crackles. Breath sounds equal bilaterally. Saturations are 97%. Abdomen soft bowel sounds are heard. No masses or tenderness. Extremities are intact. No cyanosis clubbing or edema. Skin is without rash or lesion. Neurologic examination is brief but nonfocal. - Labs CBC & Chem 7: 03/27/23 05:43 03/27/23 05:43 Labs: Abnormal Lab Results - Last 24 Hours (Table) 03/27/23 Range/Units 05:43 WBC 17.52 H (4.50-10.00) X 10*3/uL RBC 3.63 L (4.10-5.20) X 10*6/uL Hgb 10.3 L (12.0-15.0) g/dL Hct 35.1 L (37.2-46.3) % MCHC 29.3 L (32.0-37.0) g/dL RDW 15.9 H (11.5-14.5) % Immature Gran # 0.23 H (0.00-0.04) X 10*3/uL Neutrophils # 13.55 H (1.80-7.70) X 10*3/uL Monocytes # 1.21 H (0.20-1.00) X 10*3/uL Eosinophils # 0.01 L (0.04-0.35) X 10*3/uL Microbiology - Last 24 Hours (Table) 03/24/23 20:31 Blood Culture - Preliminary Blood 03/24/23 20:04 Blood Culture - Preliminary Blood Assessment and Plan Assessment: Acute on chronic hypoxemic respiratory failure secondary to an acute exacerbation of COPD. Viral screen negative. Legionella screen negative. Pro- calcitonin negative, chest x-ray showed chronic changes in the left lower lobe. Chronic hypoxemic respiratory failure mainly utilizing oxygen at night through her CPAP. Obstructive sleep apnea utilizing CPAP at 12 cm water. Former smoker, quit 1 year ago. Leukocytosis, possibly steroid driven. History of anxiety/depression. History of bipolar disorder. Hyperlipidemia. History of gastroesophageal reflux disease. Hypothyroidism. Subcentimeter pulmonary nodule and earlier CAT scan of the chest on 07/04/2022 showed a few pulmonary nodules measuring up to 8 mm in size. These nodules within the left upper lobe right lower lobe and the right upper lobe. The repeat CAT scan of the chest that was done on 03/14/2023 showed a 14 x 8 mm subpleural lesion in the superior segment of the left lower lobe. Pulmonary nodules being followed up on outpatient basis. History of renal cell carcinoma, patient underwent an nephrectomy at [facility] on April 11, 2022, due to reported renal carcinoma. Patient is currently taking combination of Cabometyx and Nivolumab. Recent fall with a left displaced femoral neck fracture and the patient underwent a left hip arthroplasty on 02/28/2023. L1 compression fracture, offered a TLSO brace with ongoing chronic back pain. C. diff colitis, treated with oral vancomycin. Plan: Plan dated 03/27/2023. The patient's labs, x-rays, and medications are reviewed. The patient continues on bronchodilators and steroids. She continues on Lovenox for DVT prophylaxis. The patient is doing well from the pulmonary standpoint, and can be considered for discharge, in the near future. Currently, the patient is on 2 L of oxygen. Saturations are excellent. She does have an appointment to see my partner later this week, and can see him if she is discharged before that appointment. No additional recommendations are made. She is on appropriate medications includin g Symbicort, updrafts, and Solu-Medrol, which can be converted to prednisone. Time with Patient: Less than 30
--- NOTE | 2023-03-27 14:41 | P.PN ---
Subjective Progress Note Date: 03/27/23 Hospital course: Patient is a 62-year-old female with a past medical history of of COPD with chronic hypoxic respiratory failure on continuous oxygen with 2 L O2 via nasal cannula, obstructive sleep apnea, recent left femoral neck fracture requiring surgical intervention, recent C. diff colitis, chronic cholecystitis, history of renal cancer status post nephrectomy. She presented to the emergency department on 03/14/23 from home with a chief complaint of increased shortness of breath. Patient was hypoxic on room air. Chest x-ray concerning for left lower lobe infiltrate. Laboratory workup showed WBC of 20.6, negative troponin, proBNP 906, respiratory viral panel was negative. Pulmonology was consulted. Likely COPD exacerbation, unlikely to be pneumonia. troponin negative at 0.05.Pro- calcitonin negative at 0.05. Physical exam: Vital signs reviewed and stable. General: Nontoxic, no distress and appears stated age. Derm: Skin warm and dry, normal coloration for ethnicity. Head: Atraumatic, normocephalic and symmetric. Eyes: EOMs intact, no lid lag, and anicteric sclera Mouth: no lip lesions, mucus membranes moist Cardiovascular: regular rate and rhythm with normal S1S2, no murmur, positive posterior tibial pulses bilaterally, and cap refill < 2 seconds. Lungs: Respirations even, regular, and unlabored on room air. Lungs diminished with diffuse expiratory wheezes otherwise no rhonchi, rales, or crackles noted. No accessory muscle usage. Abdominal: soft, nontender to palpation, no guarding, no appreciable organomegaly Ext: ROM intact. No gross muscle atrophy, no edema, no contractures Neuro: Speech clear, face symmetrical and CN II-XII grossly intact with no noted focal neuro deficits Psych: Alert and oriented to person, place, time, and situation. Appropriate and pleasant affect. Assessment and Plan of Care: Acute on chronic hypoxic respiratory failure COPD exacerbation Leukocytosis -Pulmonology following, unlikely to be pneumonia, given recent C. diff infection we will hold off antibiotics -Continue Symbicort twice a day, DuoNebs scheduled 4 times daily in addition to every 2 hours as needed for shortness of breath and/or wheezing, Solu-Medrol 40 mg IVP every 12 hours - Pro-calcitonin negative at 0.05. -Continuous of leukocytosis with WBC count of 17.52, continue to monitor with repeat morning CBC . Recent left femoral neck fracture status post surgery-continuous symptomatic care and pain management encourage movement Recent C. diff colitis -finished a two-week course of oral vancomycin recently, monitor for recurrence Chronic low back pain-continue [place] 7.5 to 4 times a day when necessary, monitor for sedation Chronic conditions: Psychotic disorder History of chronic cholecystitis History of ulcerative colitis History of renal cancer status post nephrectomy Hypothyroidism Dyslipidemia -Continue daily medication regimen with Xanax 0.5 mg daily, atorvastatin 40 mg nightly, balsalazide disodium 2.25 g 3 times daily, Wellbutrin 200 mg twice daily, levothyroxine 112 g daily, Protonix 40 mg twice daily, propranolol 20 mg twice daily, and Geodon 40 mg daily and 60 mg nightly. Data and imaging reviewed: Labs completed and reviewed. CBC showing continued leukocytosis with WBC count of 17.5 to and stable normocytic anemia with hemoglobin of 10.3. Renal function stable with creatinine of 0.89 and GFR of 69. Vital signs reviewed. Blood pressure 152/85, heart rate 77, respiratory rate 19, temp 98.2F, SpO2 of 97% on 2 L O2 via nasal cannula. DVT ppx: Lovenox Code status: Full code Anticipated discharge place: Home Anticipated discharge time: 1-2 days Patient was seen independently by Nurse Pracitioner. This document was prepared using [employer] dictation software. Please allow for errors in design teacher, while rare they do occur. Objective - Vital Signs Vital signs: Vital Signs Temp 98.2 F 03/27/23 07:12 Pulse 84 03/27/23 09:04 Resp 19 03/27/23 07:12 BP 152/85 03/27/23 07:12 Pulse Ox 97 03/27/23 08:46 FiO2 Intake & Output 03/26/23 03/27/23 03/27/23 18:59 06:59 18:59 Output Total 1 Balance -1 Output: Stool 1 Other: # Voids 2 2 - Labs CBC & Chem 7: 03/27/23 05:43 03/27/23 05:43 Labs: Abnormal Lab Results - Last 24 Hours (Table) 03/27/23 Range/Units 05:43 WBC 17.52 H (4.50-10.00) X 10*3/uL RBC 3.63 L (4.10-5.20) X 10*6/uL Hgb 10.3 L (12.0-15.0) g/dL Hct 35.1 L (37.2-46.3) % MCHC 29.3 L (32.0-37.0) g/dL RDW 15.9 H (11.5-14.5) % Immature Gran # 0.23 H (0.00-0.04) X 10*3/uL Neutrophils # 13.55 H (1.80-7.70) X 10*3/uL Monocytes # 1.21 H (0.20-1.00) X 10*3/uL Eosinophils # 0.01 L (0.04-0.35) X 10*3/uL Microbiology - Last 24 Hours (Table) 03/24/23 20:31 Blood Culture - Preliminary Blood 03/24/23 20:04 Blood Culture - Preliminary Blood
[2023-03-27] MEDS: ATORVASTATIN 40 MG TAB PO SCH (16:55)
[2023-03-27] MEDS: ZIPRASIDONE 60 MG CAP PO SCH (16:56)
[2023-03-27] MEDS: ENOXAPARIN 40 MG/0.4 ML SYRINGE SQ SCH (21:16)
[2023-03-28] MEDS: HYDROcodone/APAP 7.5-325MG 1 EACH TAB PO PRN ×4 (00:30→18:41)
[2023-03-28] MEDS: buPROPion SR 100 MG TABLET.ER PO SCH ×2 (05:52→16:35)
[2023-03-28] MEDS: BALSALAZIDE DISODIUM 750 MG CAPSULE PO SCH ×3 (05:52→16:34)
[2023-03-28] MEDS: ZIPRASIDONE 40 MG CAP PO SCH (05:53)
[2023-03-28] MEDS: PANTOPRAZOLE 40 MG TABLET PO SCH ×2 (05:53→16:35)
[2023-03-28] MEDS: PROPRANOLOL 20 MG TAB PO SCH ×2 (05:53→16:34)
[2023-03-28] MEDS: MAGNESIUM OXIDE 400 MG TAB PO SCH ×2 (05:53→16:35)
[2023-03-28] MEDS: LEVOTHYROXINE 112 MCG TAB PO SCH (05:54)
[2023-03-28] MEDS: CYANOCOBALAMIN 500 MCG TAB PO SCH ×2 (05:54→16:34)
[2023-03-28] MEDS: ALPRAZolam 0.5 MG TAB PO SCH (05:54)
[2023-03-28 08:41] LABS: HCT 36.2 % (34.0-46.0); HGB 11.1 gm/dL (11.4-16.0); Hypochromasia Marked; MCH 29.3 pg (25.0-35.0); MCHC 30.8 g/dL (31.0-37.0); MCV 95.1 fL (80.0-100.0); Mean Platelet Volume 8.9; Platelet Count 345 k/uL (150-450); RBC 3.81 m/uL (3.80-5.40); RDW 15.6 % (11.5-15.5); WBC 20.1 k/uL (3.8-10.6)
[2023-03-28 08:50] LABS: ALT 35 U/L (4-34); AST 38 U/L (14-36); African American GFR (CKD) 70 (>60 ml/min/1.73 sqM); Albumin 3.2 g/dL (3.5-5.0); Albumin/Globulin Ratio 1.1; Alkaline Phosphatase 363 U/L (38-126); Anion Gap 8 mmol/L; Blood Urea Nitrogen 28 mg/dL (7-17); Calcium 9.2 mg/dL (8.4-10.2); Carbon Dioxide 33 mmol/L (22-30); Chloride 98 mmol/L (98-107); Globulin 2.9 g/dL; Glucose 100 mg/dL (74-99); Magnesium 1.5 mg/dL (1.6-2.3); Non-African American GFR(CKD) 61 (>60 ml/min/1.73 sqM); Potassium 4.4 mmol/L (3.5-5.1); Sodium 139 mmol/L (137-145); Total Bilirubin 0.4 mg/dL (0.2-1.3); Total Protein 6.1 g/dL (6.3-8.2)
[2023-03-28] MEDS: IPRATROPIUM-ALBUTEROL 3 ML NEB INHALATION SCH ×4 (08:51→20:51)
[2023-03-28] MEDS: SYMBICORT 80-4.5 MCG INHALER INHALATION SCH ×2 (08:51→20:51)
[2023-03-28] MEDS: methylPREDNISolone SOD SUCCI 40 MG/ML 1 ML VIAL IV SCH (09:50)
--- NOTE | 2023-03-28 11:21 | CDI ---
Documentation Clarification Form Date: From: Krystal Abernathy Phone: [phone] Admit Date: 03/24/2023 07:54:00 PM Patient Name: Velia Azevedo Visit Number: [id number] Discharge Date: ATTENTION: The Clinical Documentation Specialists (CDI) and [facility] Coding Staff appreciate your assistance in clarifying documentation. Please respond to the clarification below the line at the bottom and electronically sign. The CDI & [facility] Coding staff will review the response and follow-up if needed. Please note: Queries are made part of the Legal Health Record. If you have any questions, please contact the author of this message via ITS. Dr. Deny Paulson Conflicting documentation has been found in the medical record. As attending physician, please provide clarification. "COPD exacerbation, unlikely to be pneumonia" - Per Pulmonology progress note on 03/27 "Principal diagnosis: COPD, pneumonia." - Per Progress Note on 03/27 History/Risk Factors: "62-year-old female presents with department complaining of upper respiratory complaints. She does have a history of COPD, hyperlipidemia, asthma with recent C. diff completed antibiotics, was currently on a course of steroids." - Per ED Note on 03/24 Clinical Indicators: "Acute on chronic hypoxemic respiratory failure secondary to an acute exacerbation of COPD. Viral screen negative. Legionella screen negative. Pro-calcitonin negative, chest x-ray showed chronic changes in the left lower lobe." - Per Progress Note on 03/27 Treatment: "Continue bronchodilators, and discontinue antibiotics" - Per Pulmonology consult note on 03/25 "Continue Symbicort twice a day, DuoNeb 4 times a day, every 2 hours as needed, Solu-Medrol 40 mg to 12 hours IV" - Per Progress Note on 03/25 Please clarify which diagnosis is most appropriate: [ x ] Pneumonia ruled out [ ] Pneumonia present on admission [ ] Other (please specify) [ ] Unable to determine MTDD
--- NOTE | 2023-03-28 13:36 | P.PN ---
Subjective Progress Note Date: 03/28/23 Hospital course: Patient is a 62-year-old female with a past medical history of of COPD with chronic hypoxic respiratory failure on continuous oxygen with 2 L O2 via nasal cannula, obstructive sleep apnea, recent left femoral neck fracture requiring surgical intervention, recent C. diff colitis, chronic cholecystitis, history of renal cancer status post nephrectomy. She presented to the emergency department on 03/14/23 from home with a chief complaint of increased shortness of breath. Patient was hypoxic on room air. Chest x-ray concerning for left lower lobe infiltrate. Laboratory workup showed WBC of 20.6, negative troponin, proBNP 906, respiratory viral panel was negative. Pulmonology was consulted. Likely COPD exacerbation, unlikely to be pneumonia. troponin negative at 0.05.Pro- calcitonin negative at 0.05. Physical exam: Vital signs reviewed and stable. General: Nontoxic, no distress and appears stated age. Derm: Skin warm and dry, normal coloration for ethnicity. Head: Atraumatic, normocephalic and symmetric. Eyes: EOMs intact, no lid lag, and anicteric sclera Mouth: no lip lesions, mucus membranes moist Cardiovascular: regular rate and rhythm with normal S1S2, no murmur, positive posterior tibial pulses bilaterally, and cap refill < 2 seconds. Lungs: Respirations even, regular, and unlabored on 2 L O2. Lungs diminished, no wheezes, rhonchi, rales, or crackles noted. No accessory muscle usage. Abdominal: soft, nontender to palpation, no guarding, no appreciable organomegaly Ext: ROM intact. No gross muscle atrophy, no edema, no contractures Neuro: Speech clear, face symmetrical and CN II-XII grossly intact with no noted focal neuro deficits Psych: Alert and oriented to person, place, time, and situation. Appropriate and pleasant affect. Assessment and Plan of Care: Acute on chronic hypoxic respiratory failure COPD exacerbation -Pulmonology following, unlikely to be pneumonia, given recent C. diff infection we will hold off antibiotics -Continue Symbicort twice a day, DuoNebs scheduled 4 times daily in addition to every 2 hours as needed for shortness of breath and/or wheezing, Solu-Medrol 40 mg IVP every 12 hours - Pro-calcitonin negative at 0.05. Worsening leukocytosis CBC showing WBC count of 20.1. Patient shows no other signs of infection at this time and only complaint is lower back pain from previously known lumbar fracture. Order placed for CT lumbar spine to evaluate thoroughly Also discovered patient did not follow up outpatient with fashion journalist at [facility] home to have biliary stent removed that was previously placed back in December. Patient reports due to recurrent hospitalizations she has postponed and her appointment is next week. We will obtain an ultrasound of gallbladder to follow-up and rule out any abscess formation or other infectious process. -Continue to monitor with repeat morning CBC . Hypomagnesemia -Order placed for magnesium sulfate 2 g IVPB. Recent left femoral neck fracture status post surgery-continuous symptomatic care and pain management encourage movement Recent C. diff colitis -finished a two-week course of oral vancomycin recently, monitor for recurrence Chronic low back pain-continue [place] 7.5 to 4 times a day when necessary, monitor for sedation Chronic conditions: Psychotic disorder History of chronic cholecystitis History of ulcerative colitis History of renal cancer status post nephrectomy Hypothyroidism Dyslipidemia -Continue daily medication regimen with Xanax 0.5 mg daily, atorvastatin 40 mg n ightly, balsalazide disodium 2.25 g 3 times daily, Wellbutrin 200 mg twice daily, levothyroxine 112 g daily, Protonix 40 mg twice daily, propranolol 20 mg twice daily, and Geodon 40 mg daily and 60 mg nightly. Data and imaging reviewed: Labs completed and reviewed. CBC showing worsening leukocytosis with WBC count of 20.1. BMP showing hypercarbia with bicarbonate of 33 and prerenal azotemia with BUN of 28. Blood glucose 100. Magnesium low at 1.5. Liver profile showing persistent transaminitis with AST of 38, ALT 35, and alkaline phosphatase of 363. Vital signs reviewed. Blood pressure 149/88, heart rate 77, respiratory rate 19, temp 97.8F, and SpO2 of 96% on 2 L. DVT ppx: Lovenox Code status: Full code Anticipated discharge place: Home with homecare Anticipated discharge time: 1-2 days Patient was seen independently by Nurse Pracitioner. This document was prepared using [employer] dictation software. Please allow for errors in home health specialist, while rare they do occur. Elpidio Irving NP rendered care for this patient independently, reviewed the findings and plan as documented in the note above. I did not physically speak with or examine the patient on this date. Objective - Vital Signs Vital signs: Vital Signs Temp 97.6 F 03/28/23 02:00 Pulse 86 03/28/23 02:00 Resp 16 03/28/23 02:00 BP 145/84 03/28/23 02:00 Pulse Ox 94 L 03/28/23 02:00 FiO2 Intake & Output 03/27/23 03/28/23 03/28/23 18:59 06:59 18:59 Other: # Voids 2 2 - Labs CBC & Chem 7: 03/28/23 08:29 03/28/23 08:29 Labs: Abnormal Lab Results - Last 24 Hours (Table) 03/27/23 Range/Units 05:43 WBC 17.52 H (4.50-10.00) X 10*3/uL RBC 3.63 L (4.10-5.20) X 10*6/uL Hgb 10.3 L (12.0-15.0) g/dL Hct 35.1 L (37.2-46.3) % MCHC 29.3 L (32.0-37.0) g/dL RDW 15.9 H (11.5-14.5) % Immature Gran # 0.23 H (0.00-0.04) X 10*3/uL Neutrophils # 13.55 H (1.80-7.70) X 10*3/uL Monocytes # 1.21 H (0.20-1.00) X 10*3/uL Eosinophils # 0.01 L (0.04-0.35) X 10*3/uL Microbiology - Last 24 Hours (Table) 03/24/23 20:31 Blood Culture - Preliminary Blood 03/24/23 20:04 Blood Culture - Preliminary Blood
--- NOTE | 2023-03-28 16:23 | P.PN ---
Subjective Progress Note Date: 03/28/23 This a pleasant 62-year-old female patient with a known history of chronic obstructive pulmonary disease with an FEV1 value 63% of predicted, former smoker quit approximately 1 year ago, obstructive sleep apnea maintained on CPAP at 12 cm of water, renal cell carcinoma with previous right nephrectomy, hyp othyroidism, gastroesophageal reflux disease, anxiety, bipolar, depression, previous fall and left displaced femoral neck fracture requiring a left hip hemiarthroplasty on 02/28/2023. Since then she had been readmitted with a COPD exacerbation and discharged home again on 03/17/2023. She represented to the emergency room again yesterday with complaints of increasing shortness of breath, cough and congestion. Stating her pulse ox was 85% on her home O2 X-ray compared to 03/14/2023 show persistent left lower lobe atelectasis. Doppler of the left lower extremity revealed no evidence of DVT. White count 18.0. Hemoglobin 10.3. Platelets 366. Sodium 139. Potassium 4.6. Bicarb 27. BUN 16. Creatinine 0.84. Pro-calcitonin negative at 0.05. Her viral screen was negative. Legionella screen negative. She is seen today in consultation in the emergency department. Currently sitting up on a stretcher. Awake and alert in no acute distress. Maintaining good O2 saturations in the mid 90s on 2 L/m per nasal cannula. She's afebrile. Hemodynamically stable. She's been initiated on DuoNeb inhalations, Symbicort, Solu-Medrol and antibiotics in the form of azithromycin, vancomycin and cefepime. Lovenox for DVT prophylaxis. The patient is seen today 03/26/2023 in follow-up on the regular medical floor. She is currently sitting up in bed. Awake and alert in no acute distress. Feeling better today compared to yesterday. Maintaining O2 saturations in the 90s on 2 L/m per nasal cannula. Blood cultures revealed no growth. White count 20.0. Hemoglobin 10.4. Creatinine 0.90. She is continued on DuoNeb inhalations, Symbicort, Solu-Medrol. Lovenox for DVT prophylaxis. Progress note dated 03/27/2023. This is a 62-year-old female seen in room 458. She's currently on 2 L of oxygen. She does have a history of COPD, for 40 years of tobacco use. She's not receiving any IV fluids. She sees my partner in our office, for COPD, and CPAP recommendations. Currently, the patient feels like her breathing is improved. Current labs include a white count of 17.5, hemoglobin 10.3, hematocrit 35.1, platelet count 359,000. Creatinine is 0.89. Pro-calcitonin level is 0.05. Urine Legionella antigen is negative. Chest x-ray shows a patchy area of consolidation, left base. The patient is seen today 03/28/2023 in follow-up on the regular medical floor. She is awake and alert in no acute distress. She's been up ambulating in her room. No worsening shortness of breath, cough or congestion. She continues to maintain good O2 saturation in the 90s on 2 L/m per nasal cannula. She's afebrile. Hemodynamically stable. Blood cultures are revealing no growth. White count 20.1. Hemoglobin 11.1. Sodium 139. Potassium 4.4. Bicarb 33. BUN 28. Creatinine 1.0. Glucose 100. AST 38. ALT 35. She is continued on DuoNeb inhalations, Symbicort, Solu-Medrol. Lovenox for DVT prophylaxis. Objective - Vital Signs Vital signs: Vital Signs Temp 97.8 F 03/28/23 13:08 Pulse 87 03/28/23 16:07 Resp 19 03/28/23 13:08 BP 134/82 03/28/23 13:08 Pulse Ox 94 L 03/28/23 13:08 FiO2 Intake & Output 03/27/23 03/28/23 03/28/23 18:59 06:59 18:59 Output Total 1 Balance -1 Output: Stool 1 Other: # Voids 2 2 - Exam GENERAL EXAM: Alert, 62-year-old female, bleeding in her room, on 2 L nasal cannula, in no apparent distress. HEAD: Normocephalic. EYES: Normal reaction of pupils, equal size. NOSE: Clear with pink turbinates. THROAT: No erythema or exudates. NECK: No masses, no JVD. CHEST: No chest wall deformity. LUNGS: Equal air entry with faint crackle in the left base, end expiratory wheeze. CVS: S1 and S2 normal with no audible murmur, regular rhythm. ABDOMEN: No hepatosplenomegaly, normal bowel sounds, no guarding or rigidity. SPINE: No scoliosis or deformity SKIN: No rashes CENTRAL NERVOUS SYSTEM: No focal deficits, tone is normal in all 4 extremities. EXTREMITIES: There is no peripheral edema. No clubbing, no cyanosis. Peripheral pulses are intact. - Labs CBC & Chem 7: 03/28/23 08:29 03/28/23 08:29 Labs: Abnormal Lab Results - Last 24 Hours (Table) 03/28/23 03/28/23 Range/Units 08:29 08:29 WBC 20.1 H (3.8-10.6) k/uL Hgb 11.1 L (11.4-16.0) gm/dL MCHC 30.8 L (31.0-37.0) g/dL RDW 15.6 H (11.5-15.5) % Carbon Dioxide 33 H (22-30) mmol/L BUN 28 H (7-17) mg/dL Glucose 100 H (74-99) mg/dL Magnesium 1.5 L (1.6-2.3) mg/dL AST 38 H (14-36) U/L ALT 35 H (4-34) U/L Alkaline Phosphatase 363 H (38-126) U/L Total Protein 6.1 L (6.3-8.2) g/dL Albumin 3.2 L (3.5-5.0) g/dL Microbiology - Last 24 Hours (Table) 03/24/23 20:31 Blood Culture - Preliminary Blood 03/24/23 20:04 Blood Culture - Preliminary Blood Assessment and Plan Assessment: Acute on chronic hypoxemic respiratory failure secondary to an acute exacerbation of COPD. Viral screen negative. Legionella screen negative. Pro- calcitonin negative, chest x-ray showed chronic changes in the left lower lobe Frequent admissions, this is her third admission within the month Chronic hypoxemic respiratory failure mainly utilizing oxygen at night through her CPAP Obstructive sleep apnea utilizing CPAP at 12 cm water Former smoker, quit 1 year ago Leukocytosis, possibly steroid driven History of anxiety/depression History of bipolar disorder Hyperlipidemia History of gastroesophageal reflux disease Hypothyroidism Subcentimeter pulmonary nodule and earlier CAT scan of the chest on 07/04/2022 showed a few pulmonary nodules measuring up to 8 mm in size. These nodules within the left upper lobe right lower lobe and the right upper lobe. The repeat CAT scan of the chest that was done on 03/14/2023 showed a 14 x 8 mm subpleural lesion in the superior segment of the left lower lobe. Pulmonary nodules being followed up on outpatient basis History of renal cell carcinoma, patient underwent an nephrectomy at [facility] on April 11, 2022, due to reported renal carcinoma. Patient is currently taking combination of Cabometyx and Nivolumab. Recent fall with a left displaced femoral neck fracture and the patient underwent a left hip arthroplasty on 02/28/2023. L1 compression fracture, offered a TLSO brace with ongoing chronic back pain C. diff colitis, treated with oral vancomycin, currently inactive and stable Plan: The patient was seen and evaluated Labs and medications reviewed Continue bronchodilators Transitioned to oral steroids Lovenox for DVT prophylaxis Titrate her FiO2 as tolerated We will continue to follow I have personally seen and examined the patient, performed the documentation and the assessment and plan as written. Number of minutes spent on the visit: 10.
[2023-03-28] MEDS: ATORVASTATIN 40 MG TAB PO SCH (16:34)
[2023-03-28] MEDS: ZIPRASIDONE 60 MG CAP PO SCH (16:35)
[2023-03-28] MEDS: MAGNESIUM SULFATE-D5W PMX 1 GM in DEXTROSE/WATER 1 100ML.BAG IVPB SCH ×2 (16:51→18:23)
[2023-03-28] MEDS: ENOXAPARIN 40 MG/0.4 ML SYRINGE SQ SCH (20:21)
[2023-03-29] MEDS: HYDROcodone/APAP 7.5-325MG 1 EACH TAB PO PRN ×4 (00:25→18:40)
[2023-03-29] MEDS: MAGNESIUM OXIDE 400 MG TAB PO SCH ×2 (05:03→18:01)
[2023-03-29] MEDS: PROPRANOLOL 20 MG TAB PO SCH ×2 (05:03→17:54)
[2023-03-29] MEDS: PANTOPRAZOLE 40 MG TABLET PO SCH ×2 (05:03→18:01)
[2023-03-29] MEDS: buPROPion SR 100 MG TABLET.ER PO SCH ×2 (05:03→17:53)
[2023-03-29] MEDS: ZIPRASIDONE 40 MG CAP PO SCH (05:03)
[2023-03-29] MEDS: BALSALAZIDE DISODIUM 750 MG CAPSULE PO SCH ×3 (05:03→17:53)
[2023-03-29] MEDS: LEVOTHYROXINE 112 MCG TAB PO SCH (05:03)
[2023-03-29] MEDS: CYANOCOBALAMIN 500 MCG TAB PO SCH ×2 (05:03→17:52)
[2023-03-29] MEDS: ALPRAZolam 0.5 MG TAB PO SCH ×2 (05:04→21:38)
[2023-03-29] MEDS: IPRATROPIUM-ALBUTEROL 3 ML NEB INHALATION SCH ×4 (08:32→21:31)
[2023-03-29] MEDS: SYMBICORT 80-4.5 MCG INHALER INHALATION SCH ×2 (08:32→21:32)
--- NOTE | 2023-03-29 08:44 | CT ---
EXAMINATION TYPE: CT lumbar spine wo con CT DLP: 716.6 mGycm, Automated exposure control for dose reduction was used. DATE OF EXAM: 03/28/2023 2:09 PM COMPARISON: Lumbar x-rays 02/27/2023. CLINICAL INDICATION:Female, 62 years old with history of acute on chronic lower back pain and leukocy tosis; PHH, Low back pain TECHNIQUE: Multiple axial images were obtained from the midportion of T11 through the sacroiliac estuardo nts. Soft tissue and bone windows in coronal and sagittal planes were obtained and reviewed. 3-D ref ormats of the bones were created on a separate workstation and submitted for review. Contrast used: mL of , none. Oral contrast used: none. FINDINGS: There appear to be hypoplastic ribs at T12 and 5 lumbar-type vertebral bodies. Mineralization is with in normal limits to slightly reduced. No evidence of lytic/blastic lesion. There is moderate to severe anterior wedge compression fracture deformity of L1 with about 50% verteb ral body height loss anteriorly; this was present 02/27/2023 but shows mildly greater loss of height. Schmorl's nodes of both endplates. Minimal retropulsion of the superior posterior margin of L1. Ther e is mild to moderate compression fracture deformity of L3 with depression along the superior endplat e greatest centrally with maximal 30% vertebral body height loss; this does not appear present on the prior radiographs. There is minimal retropulsion of the superior posterior margin of L3. There is mi ld superior endplate depression of L4 with about 10-15% vertebral body height loss which is slightly eccentric towards the right; this does not appear present on the prior radiographs. No significant scoliosis. AP alignment is preserved except for minimal degenerative anterolisthesis L 4 on L5. No critical bony canal stenosis is seen at any level. T12-L1 mild posterior disc osteophyte complex and mild facet arthrosis. Mild spinal canal stenosis. N o significant neural foraminal stenosis. L1-2 mild posterior disc bulge and mild facet disease. No significant canal or neural foraminal steno sis. L2-3 mild to moderate posterior disc osteophyte complex and mild facet disease. Mild canal and neural foraminal stenoses. L3-4 mild posterior disc bulge with partially calcified margin. Moderate bilateral facet disease. Mil d to moderate spinal canal stenosis and bilateral foraminal stenosis. L4-5 moderate broad-based posterior disc bulge with small marginal osteophytes. Moderate bilateral fa cet disease. Moderate spinal canal stenosis, moderate to severe right and moderate left neural forami nal stenosis. L5-S1 mild posterior disc osteophyte complex. Moderate facet disease, greatest on the right. Mild spi nal canal stenosis, mild right foraminal stenosis, moderate left foraminal stenosis. Visualized upper sacrum appears intact. Mild degenerative change of the SI joints. Other findings: Moderate to heavy atherosclerotic calcification of the abdominal aorta without eviden ce of AAA. Partially seen internal biliary to bowel plastic stent and pneumobilia. Surgical clips by the liver to the right of the aorta. Uncertain if the right adrenal is present, no suggestion of adre nal mass. Thickening with small low attenuation nodularity of the left adrenal, favored to represent adenomatoid changes. Partially seen left renal hypodensities with the appearance of cysts. Mildly enl arged left para-aortic lymph node at the level of the kidney is 1.5 cm short axis, etiology uncertain . Mild atelectasis in the lung bases. IMPRESSION: 1. Moderate to severe anterior wedge compression fracture deformity L1, was present 02/27/2023 but s hows slightly greater loss of height. 2. Mild/moderate compression fracture with superior endplate depression L3, appears new since 2022. 3. Mild compression fracture with superior endplate depression L4, appears new since 02/27/2023. 4. Multilevel lumbar spondylosis, with various degrees of canal and neural foraminal stenosis, detai led level by level above.
[2023-03-29 08:45] LABS: HCT 35.8 % (37.2-46.3); MCH 29.1 pg (27.0-32.0); MCHC 30.7 g/dL (32.0-37.0); MCV 94.7 FL (80.0-97.0); Mean Platelet Volume 11.1 FL (9.5-12.2); NRBC Per 100 WBC 0 X 10*3/uL (0.00-0.01); Platelet Count 369 X 10*3/uL (140-440); RBC 3.78 X 10*6/uL (4.10-5.20); WBC 20.45 X 10*3/uL (4.50-10.00)
--- NOTE | 2023-03-29 08:58 | US ---
EXAMINATION TYPE: US gallbladder DATE OF EXAM: 03/29/2023 COMPARISON: NONE CLINICAL INDICATION: Female, 62 years old with history of Leukocytosis, gallbladder stent previously placed; h/o biliary stent, patient states no symptoms, known GB stone, right nephrectomy TECHNIQUE: Multiple sonographic images of the right upper quadrant are obtained. FINDINGS: EXAM MEASUREMENTS: Liver Length: 17.1 cm Gallbladder Wall: 0.2 cm CBD: 1.0 cm Right Kidney: Surgically absent Pancreas: wnl Liver: wnl . No biliary dilatation evident. Gallbladder: single fundal stone seen no gallbladder wall thickening evident. Evidence for sonographic Medrano's sign: no CBD: stent seen Right Kidney: Surgically absent IMPRESSION: 1. Hepatomegaly 2. Cholelithiasis.
[2023-03-29] MEDS: predniSONE 20 MG TAB PO SCH (09:03)
[2023-03-29 11:03] LABS: ALT 33 U/L (8-44); AST 29 U/L (13-35); Albumin 3.3 g/dL (3.8-4.9); Albumin/Globulin Ratio 1.43 Ratio (1.60-3.17); Alkaline Phosphatase 412 U/L (41-126); BUN/Creat Ratio 25.92 Ratio (12.00-20.00); Blood Urea Nitrogen 31.1 mg/dL (9.0-27.0); Calcium 9.4 mg/dL (8.7-10.3); Carbon Dioxide 31.8 mmol/L (21.6-31.8); Chloride 100 mmol/L (96-109); Globulin 2.3 g/dL (1.6-3.3); Glucose 76 mg/dL (70-110); Magnesium 2.1 mg/dL (1.5-2.4); Potassium 4.2 mmol/L (3.5-5.5); Sodium 141 mmol/L (135-145); Total Bilirubin 0.3 mg/dL (0.3-1.2); Total Protein 5.6 g/dL (6.2-8.2)
--- NOTE | 2023-03-29 14:00 | P.CNOR ---
History of Present Illness - [facility] Consult date: 03/29/23 Requesting physician: Elpidio Irving Consult reason: fracture (Compression fracture deformities of L1, L3, L4) History of present illness: Patient is a very pleasant 62-year-old female who is seen and examined at bedside for further evaluation of her lumbar spine. She is known to have sustained a fall resulting in left hip fracture in February 2023. She underwent a left total hip arthroplasty performed by Dr. Jonathan Zeng. She states also somewhere in February 2020. She was diagnosed with a compression fracture deformity and fitted with a large bulky LSO brace which she had to picker tender helper at [facility] in the outpatient setting. She has been wearing this brace occasionally as she states that's how he was indicated. Patient presented to the emergency department for difficulty with breathing and shortness of breath. During her evaluation in the Hospital further imaging was taken which did show evidence of worsening compression fracture deformity of L1 with new fractures at L3 and L4. We are consulted in this regard. Patient denies any recent falls or injuries other than the injury at the time that she sustained her left hip fracture. She states her back pain is currently well controlled and she has no back pain at rest. Her back pain is exacerbated with increased activities. She denies any lower extremity weakness or radiculopathy bilaterally. She states she left her LSO brace at home that she did not want to lose in the emergency department. She continues to be seen and examined by medicine. They're planning for discharge home today if cleared from an orthopedic standpoint. Patient states she does have a history of previous right nephrectomy due to renal carcinoma in March 2021 and completed chemotherapy afterwards. Past Medical History Past Medical History: Asthma, COPD, GERD/Reflux, Hyperlipidemia, Liver Disease, Sleep Apnea/CPAP/BIPAP Additional Past Medical History / Comment(s): hx internal hemorrhoid, kidney CA with right nephrectomy, CPAP use, colitis, IBS History of Any Multi-Drug Resistant Organisms: None Reported Past Surgical History: Hysterectomy Additional Past Surgical History / Comment(s): right nephrectomy 04/11/22 Past Anesthesia/Blood Transfusion Reactions: No Reported Reaction Past Psychological History: Anxiety, Bipolar, Depression Smoking Status: Former smoker Past Alcohol Use History: None Reported Past Drug Use History: None Reported Medications and Allergies Home Medications Medication Instructions Recorded Confirmed Type Ziprasidone [Geodon] 40 mg PO DAILY@0530 02/07/14 03/24/23 History Albuterol Inhaler [Ventolin Hfa 2 puff INHALATION RT-Q6H PRN 11/07/17 03/24/23 History Inhaler] Mesalamine [Delzicol] 800 mg PO TID@0530,1200,17311/07/17 03/24/23 History Albuterol Nebulized [Ventolin 2.5 mg INHALATION RT-QID PRN 07/03/22 03/24/23 History Nebulized] Atorvastatin Calcium [Lipitor] 40 mg PO HS@172907/03/22 03/24/23 History Levothyroxine Sodium [Synthroid] 112 mcg PO DAILY@52907/03/22 03/24/23 History Multivitamins, Thera [Multivitamin 1 tab PO DAILY@52907/03/22 03/24/23 History (formulary)] Ziprasidone [Geodon] 60 mg PO HS@172907/03/22 03/24/23 History buPROPion HCL [Wellbutrin SR] 200 mg PO BID@05,172907/03/22 03/24/23 History Midodrine [ProAmatine] 10 mg PO AC-TID #120 tab 07/07/22 03/24/23 Rx Cyanocobalamin (Vitamin B-12) 1,000 mcg PO BID@529,172901/15/23 03/24/23 History [Vitamin B-12] Fluticasone/Umeclidin/Vilanter 1 puff INHALATION RT-DAILY 01/15/23 03/24/23 History [Trelegy Ellipta 100-62.5-25] Pantoprazole [Protonix] 40 mg PO BID@0530,17302/27/23 03/24/23 History ALPRAZolam [Xanax] 0.5 mg PO DAILY@0530 #6 tab 03/06/23 03/24/23 Rx Propranolol [Inderal] 20 mg PO BID@0530,172903/14/23 03/24/23 History HYDROcodone/APAP 7.5-325MG [[place] 1 tab PO TID PRN #9 tab 03/17/23 03/24/23 Rx 7.5-325] Magnesium Oxide [Mag-Ox] 800 mg PO BID@0530,173 30 Days 03/17/23 03/24/23 Rx #60 tab Sodium Bicarbonate Tab 650 mg PO BID@0530,1730 30 Days 03/17/23 03/24/23 Rx #60 tab predniSONE See Taper PO DIRECTED 12 Days 03/17/23 03/24/23 Rx #30 tab Lidocaine 4% Patch 1 patch TRANSDERM DAILY 03/24/23 03/24/23 History Allergies Allergy/AdvReac Type Severity Reaction Status Date / Time codeine Allergy Rash/Hives Verified 03/24/23 14:34 Penicillins Allergy Rash/Hives Verified 03/24/23 14:34 on feet Sulfa (Sulfonamide Allergy Rash/Hives Verified 03/24/23 14:34 Antibiotics) ibuprofen [From Motrin] AdvReac Nausea & Verified 03/24/23 14:34 Vomiting Physical Examination Osteopathic Statement: *. No significant issues noted on an osteopathic structural exam other than those noted in the History and Physical/Consult. Physical exam: Patient is awake, alert, and oriented 3 Vital signs stable Good chest excursion with deep inspiration and expiration Abdomen soft nontender Examination of lumbar spine reveals skin is intact with no abrasions, lacerations, or bruises; no erythema, purulence or signs of infection Some pain with palpation along the midline of the middle lower lumbar spine Dorsiflexion, plantarflexion, and extensor hallucis longus positive sustained bilaterally Lower extremity strength 5/5 bilaterally Straight leg test negative bilateral lower extremities Negative Lasegue's test bilaterally No signs or symptoms of DVT; no calf pain No pain with internal and external rotation of the hips bilaterally Neurovascularly intact Results Pertinent studies: CT the lumbar spine taken on 03/28/2023: L1 wedge compression fracture deformity at approximate 75% height loss centrally; L3 superior endplate compression fracture deformity approximately 25% height loss; L4 superior endplate compression fracture deformity approximately 10% height loss; L4-5 spondylolisthesis and disc protrusion with right greater than left foraminal stenosis and central stenosis - Labs Labs: Abnormal Lab Results - Last 24 Hours (Table) 03/29/23 03/29/23 Range/Units 06:13 06:13 WBC 20.45 H (4.50-10.00) X 10*3/uL RBC 3.78 L (4.10-5.20) X 10*6/uL Hgb 11.0 L (12.0-15.0) g/dL Hct 35.8 L (37.2-46.3) % MCHC 30.7 L (32.0-37.0) g/dL RDW 16.0 H (11.5-14.5) % BUN 31.1 H (9.0-27.0) mg/dL Est GFR (CKD-EPI) 51 L (>=60) BUN/Creatinine Ratio 25.92 H (12.00-20.00) Ratio Alkaline Phosphatase 412 H (41-126) U/L Total Protein 5.6 L (6.2-8.2) g/dL Albumin 3.3 L (3.8-4.9) g/dL Albumin/Globulin Ratio 1.43 L (1.60-3.17) Ratio H & H 03/24/23 03/25/23 03/26/23 Range/Units 15:17 07:48 06:22 Hgb 11.3 L 10.3 L 10.4 L (11.4-16.0) gm/dL Hct 38.0 33.3 L 33.5 L (34.0-46.0) % 03/27/23 03/28/23 03/29/23 Range/Units 05:43 08:29 06:13 Hgb 10.3 L 11.1 L 11.0 L (11.4-16.0) gm/dL Hct 35.1 L 36.2 35.8 L (34.0-46.0) % Coagulation 03/24/23 Range/Units 15:17 INR 0.9 (<1.2) Result Diagrams: 03/29/23 06:13 03/29/23 06:13 Assessment and Plan Assessment: Assessment: L1 subacute worsening compression fracture L3 and L4 acute compression fracture deformities Acute on chronic low back pain L4-L5 spondylolisthesis L4-5 right greater than left foraminal stenosis and central canal stenosis COPD exacerbation Leukocytosis Hypomagnesemia History of right renal cell carcinoma with right nephrectomy in March 2021 (1) Compression fracture of L1 lumbar vertebra Current Visit: Yes Status: Acute Code(s): S32.010A - WEDGE COMPRESSION FRACTURE OF FIRST LUMBAR VERTEBRA, INIT SNOMED Code(s): 157509135 (2) Compression fracture of L3 vertebra Current Visit: Yes Status: Acute Code(s): S32.030A - WEDGE COMPRESSION FRACTURE OF THIRD LUMBAR VERTEBRA, INIT SNOMED Code(s): 572792481 (3) Compression fracture of L4 vertebra Current Visit: Yes Status: Acute Code(s): S32.040A - WEDGE COMPRESSION FRACTURE OF FOURTH LUMBAR VERTEBRA, INIT SNOMED Code(s): 880923794 (4) Acute exacerbation of chronic low back pain Current Visit: Yes Status: Acute Code(s): M54.50 - LOW BACK PAIN, UNSP ECIFIED; G89.29 - OTHER CHRONIC PAIN SNOMED Code(s): 594231321 (5) Spondylolisthesis at L4-L5 level Current Visit: Yes Status: Acute Code(s): M43.16 - SPONDYLOLISTHESIS, LUMBAR REGION SNOMED Code(s): 431294186102109 (6) Foraminal stenosis of lumbar region Current Visit: Yes Status: Acute Code(s): M48.061 - SPINAL STENOSIS, LUMBAR REGION WITHOUT NEUROGENIC ANYI SNOMED Code(s): 347791847 (7) Leukocytosis Current Visit: Yes Status: Acute Code(s): D72.829 - ELEVATED WHITE BLOOD CELL COUNT, UNSPECIFIED SNOMED Code(s): 666248352 (8) Hypomagnesemia Current Visit: Yes Status: Acute Code(s): E83.42 - HYPOMAGNESEMIA SNOMED Code(s): 295469072 (9) Lumbar spinal stenosis Current Visit: Yes Status: Acute Code(s): M48.061 - SPINAL STENOSIS, LUMBAR REGION WITHOUT NEUROGENIC ANYI SNOMED Code(s): 11425968 (10) COPD exacerbation Current Visit: Yes Status: Acute Code(s): J44.1 - CHRONIC OBSTRUCTIVE PULMONARY DISEASE W (ACUTE) EXACERBATION SNOMED Code(s): 481634542 Plan: Plan: 1. After reviewing of imaging, physical examination the patient, and further discussion with the patient, will currently plan to continue with conservative treatment at this time. She does have multiple compression fracture deformities with worsening L1 compression fracture deformity and acute compression fracture deformity as of L3 and L4. She has a bulky LSO brace at home. Currently, she is not experiencing any pain while lying in bed comfortably at rest. She denies a lower extremity weakness or radiculopathy bilaterally. She is neurovascularly intact. We discussed in detail that she should wear the LSO brace while sitting upright at greater than 45, during increase activities, during ambulation. Brace does not have to or while lying in bed or while bathing. Patient has this brace at home and is clear for discharge from an orthopedic spine standpoint. Following discharge, patient may follow-up with Eren Loja PA-C or Dr. Marcos Fregoso at [facility]. 2. Patient is also known to have undergone a left total hip arthroplasty for left femoral neck fracture by Dr. Jonathan Zeng. She was scheduled for further evaluation but had to miss her appointment due to being in the hospital. We will plan to schedule her follow-up appointment for further evaluation of her left hip. I rewieved the images and the case above. agree with th chacorta above. Will start conservative treatment wit bracing. Time with Patient: Greater than 30 (Including obtaining history, physical examination, reviewing of imaging, and dictation.)
--- NOTE | 2023-03-29 14:40 | P.PN ---
Subjective Progress Note Date: 03/29/23 Hospital course: Patient is a 62-year-old female with a past medical history of of COPD with chronic hypoxic respiratory failure on continuous oxygen with 2 L O2 via nasal cannula, obstructive sleep apnea, recent left femoral neck fracture requiring surgical intervention, recent C. diff colitis, chronic cholecystitis, history of renal cancer status post nephrectomy. She presented to the emergency department on 03/14/23 from home with a chief complaint of increased shortness of breath. Patient was hypoxic on room air. Chest x-ray concerning for left lower lobe infiltrate. Laboratory workup showed WBC of 20.6, negative troponin, proBNP 906, respiratory viral panel was negative. Pulmonology was consulted. Likely COPD exacerbation, unlikely to be pneumonia. troponin negative at 0.05.Pro- calcitonin negative at 0.05. Physical exam: Vital signs reviewed and stable. General: Nontoxic, no distress and appears stated age. Derm: Skin warm and dry, normal coloration for ethnicity. Head: Atraumatic, normocephalic and symmetric. Eyes: EOMs intact, no lid lag, and anicteric sclera Mouth: no lip lesions, mucus membranes moist Cardiovascular: regular rate and rhythm with normal S1S2, no murmur, positive posterior tibial pulses bilaterally, and cap refill < 2 seconds. Lungs: Respirations even, regular, and unlabored on 2 L O2. Lungs diminished, no wheezes, rhonchi, rales, or crackles noted. No accessory muscle usage. Abdominal: soft, nontender to palpation, no guarding, no appreciable organomegaly Ext: ROM intact. No gross muscle atrophy, no edema, no contractures Neuro: Speech clear, face symmetrical and CN II-XII grossly intact with no noted focal neuro deficits Psych: Alert and oriented to person, place, time, and situation. Appropriate and pleasant affect. Assessment and Plan of Care: Acute on chronic hypoxic respiratory failure COPD exacerbation -Pulmonology following, unlikely to be pneumonia, given recent C. diff infection we will hold off antibiotics -Continue Symbicort twice a day, DuoNebs scheduled 4 times daily in addition to every 2 hours as needed for shortness of breath and/or wheezing, -Solu-Medrol discontinued and Patient started on prednisone 40 mg daily plan for taper and likely discharge within the next 24 hours. -Pro-calcitonin negative at 0.05. Persistent leukocytosis CBC showing WBC count of 20.45. Patient shows no other signs of infection at this time and only complaint is lower back pain from previously known lumbar fracture. Gallbladder ultrasound completed showing hepatomegaly and cholelithiasis with no evidence of sonographic Medrano's sign pain and stent seen in CBD with no signs of gallbladder wall thickening. CT lumbar spine of the completed showing moderate to severe anterior wedge compression fracture deformity at L1 previously present on 02/27/23 but shows slightly greater loss of height, mild to moderate compression fracture with superior endplate depression of L3 appears new since 02/27/23 and mild compression fracture with superior endplate depression of L4 again new since 02/27/23. Consult placed orthospine surgery for evaluation and recommendations. Continue to monitor with repeat morning CBC . Hypomagnesemia, resolved Recent left femoral neck fracture status post surgery-continuous symptomatic care and pain management encourage movement Recent C. diff colitis -finished a two-week course of oral vancomycin recently, monitor for recurrence Chronic low back pain-continue with her TLSO brace when out of bed. [place] 7.5 to 4 times a day when necessary for pain, monitor for sedation Chronic conditions: Psychotic disorder History of chronic cholecystitis History of ulcerative colitis History of renal cancer status post nephrectomy Hypothyroidism Dyslipidemia -Continue daily medication regimen with Xanax 0.5 mg daily, atorvastatin 40 mg nightly, balsalazide disodium 2.25 g 3 times daily, Wellbutrin 200 mg twice daily, levothyroxine 112 g daily, Protonix 40 mg twice daily, propranolol 20 mg twice daily, and Geodon 40 mg daily and 60 mg nightly. Data and imaging reviewed: Labs completed and reviewed. CBC showing WBC count 20.45 and hemoglobin 11.0. BMP showing prerenal azotemia with BUN of 31.1, creatinine 1.2, GFR 51. Liver profile showing AST of 29, ALT of 33, and alkaline phosphatase of 412. Gallbladder ultrasound completed showing hepatomegaly and cholelithiasis with no evidence of sonographic Medrano's sign pain and stent seen in CBD with no signs of gallbladder wall thickening. CT lumbar spine of the completed showing moderate to severe anterior wedge compression fracture deformity at L1 previously present on 02/27/23 but shows slightly greater loss of height, mild to moderate compression fracture with superior endplate depression of L3 appears new since 02/27/23 and mild compression fracture with superior endplate depression of L4 again new since 02/27/23. Vital signs reviewed. Blood pressure 155/82, heart rate 81, respiratory rate 20, temp 97.8F, SpO2 95% on 2 L. DVT ppx: Lovenox Code status: Full code Anticipated discharge place: Home with homecare Anticipated discharge time: Likely within the next 24 hours pending evaluation by orthopedic surgery team recommendations. Patient was seen independently by Nurse Pracitioner. This document was prepared using [employer] dictation software. Please allow for errors in tin tie machine operator automatic, while rare they do occur. Elpidio Irving NP rendered care for this patient independently, reviewed the findings and plan as documented in the note above. I did not physically speak with or examine the patient on this date. Objective - Vital Signs Vital signs: Vital Signs Temp 97.8 F 03/29/23 07:22 Pulse 68 03/29/23 08:35 Resp 20 03/29/23 07:22 BP 155/82 03/29/23 07:22 Pulse Ox 94 L 03/29/23 08:35 FiO2 Intake & Output 03/28/23 03/29/23 03/29/23 18:59 06:59 18:59 Intake Total 750 Output Total 1 Balance 749 Intake: Intake, IV Titration 100 Amount Magnesium Sulfate-D5w Pmx 100 1 gm In Dextrose/Water 1 100ml.bag @ 100 mls/hr IVPB Q1H [facility] Rx#: [id number] Oral 650 Output: Stool 1 Other: # Voids 4 - Labs CBC & Chem 7: 03/29/23 06:13 03/29/23 06:13 Labs: Abnormal Lab Results - Last 24 Hours (Table) 03/28/23 03/28/23 Range/Units 08:29 08:29 WBC 20.1 H (3.8-10.6) k/uL Hgb 11.1 L (11.4-16.0) gm/dL MCHC 30.8 L (31.0-37.0) g/dL RDW 15.6 H (11.5-15.5) % Carbon Dioxide 33 H (22-30) mmol/L BUN 28 H (7-17) mg/dL Glucose 100 H (74-99) mg/dL Magnesium 1.5 L (1.6-2.3) mg/dL AST 38 H (14-36) U/L ALT 35 H (4-34) U/L Alkaline Phosphatase 363 H (38-126) U/L Total Protein 6.1 L (6.3-8.2) g/dL Albumin 3.2 L (3.5-5.0) g/dL Microbiology - Last 24 Hours (Table) 03/24/23 20:31 Blood Culture - Preliminary Blood 03/24/23 20:04 Blood Culture - Preliminary Blood
--- NOTE | 2023-03-29 14:59 | P.PN ---
Subjective Progress Note Date: 03/29/23 Principal diagnosis: COPD, pneumonia. This a pleasant 62-year-old female patient with a known history of chronic obstructive pulmonary disease with an FEV1 value 63% of predicted, former smoker quit approximately 1 year ago, obstructive sleep apnea maintained on CPAP at 12 cm of water, renal cell carcinoma with previous right nephrectomy, hypothyroidism, gastroesophageal reflux disease, anxiety, bipolar, depression, previous fall and left displaced femoral neck fracture requiring a left hip hemiarthroplasty on 02/28/2023. Since then she had been readmitted with a COPD exacerbation and discharged home again on 03/17/2023. She represented to the emergency room again yesterday with complaints of increasing shortness of breath, cough and congestion. Stating her pulse ox was 85% on her home O2 X-ray compared to 03/14/2023 show persistent left lower lobe atelectasis. Doppler of the left lower extremity revealed no evidence of DVT. White count 18.0. Hemoglobin 10.3. Platelets 366. Sodium 139. Potassium 4.6. Bicarb 27. BUN 16. Creatinine 0.84. Pro-calcitonin negative at 0.05. Her viral screen was negative. Legionella screen negative. She is seen today in consultation in the emergency department. Currently sitting up on a stretcher. Awake and alert in no acute distress. Maintaining good O2 saturations in the mid 90s on 2 L/m per nasal cannula. She's afebrile. Hemodynamically stable. She's been initiated on DuoNeb inhalations, Symbicort, Solu-Medrol and antibiotics in the form of azithromycin, vancomycin and cefepime. Lovenox for DVT prophylaxis. The patient is seen today 03/26/2023 in follow-up on the regular medical floor. She is currently sitting up in bed. Awake and alert in no acute distress. Feeling better today compared to yesterday. Maintaining O2 saturations in the 90s on 2 L/m per nasal cannula. Blood cultures revealed no growth. White count 20.0. Hemoglobin 10.4. Creatinine 0.90. She is continued on DuoNeb inhal ations, Symbicort, Solu-Medrol. Lovenox for DVT prophylaxis. Progress note dated 03/27/2023. This is a 62-year-old female seen in room 458. She's currently on 2 L of oxygen. She does have a history of COPD, for 40 years of tobacco use. She's not receiving any IV fluids. She sees my partner in our office, for COPD, and CPAP recommendations. Currently, the patient feels like her breathing is improved. Current labs include a white count of 17.5, hemoglobin 10.3, hematocrit 35.1, platelet count 359,000. Creatinine is 0.89. Pro-calcitonin level is 0.05. Urine Legionella antigen is negative. Chest x-ray shows a patchy area of consolidation, left base. Progress note dated 03/29/2023. 62-year-old female seen today in room 458. Currently, the patient continues on oxygen at 2 L by nasal cannula. Her most recent pro-calcitonin level is normal. She's not receiving any IV fluids. She's feeling much better today. Today's labs include a white count of 12.5, hemoglobin 11, hematocrit 35.8, and a platelet count of 369,000. Sodium 141, potassium 4.2, chlorides 100, CO2 32, BUN 31, and creatinine 1.2. The most recent pro-calcitonin level was 0.05. Objective - Vital Signs Vital signs: Vital Signs Temp 97.9 F 03/29/23 12:35 Pulse 98 03/29/23 12:35 Resp 14 03/29/23 12:35 BP 135/81 03/29/23 12:35 Pulse Ox 95 03/29/23 12:35 FiO2 Intake & Output 03/28/23 03/29/23 03/29/23 18:59 06:59 18:59 Intake Total 750 Output Total 1 Balance 749 Intake: Intake, IV Titration 100 Amount Magnesium Sulfate-D5w Pmx 100 1 gm In Dextrose/Water 1 100ml.bag @ 100 mls/hr IVPB Q1H [facility] Rx#: [id number] Oral 650 Output: Stool 1 Other: # Voids 4 - Exam No acute distress, oriented 3. No respiratory distress. Currently on 2 L. No audible wheezing or use of accessory muscles. HEENT examination is grossly unremarkable. Mucous membranes are moist. No oral lesions. Neck supple. Full range of motion. No adenopathy thyromegaly or neck vein distention. Cardiovascular examination reveals regular rhythm rate. S1-S2 normal. No S3 or S4. No discernible murmur noted. Heart rate 76 bpm. Lungs reveal rhonchi and mild expiratory wheezes. No crackles. Breath sounds equal bilaterally. Saturations are 95% on 2 L. Abdomen soft bowel sounds are heard. No masses or tenderness. Extremities are intact. No cyanosis clubbing or edema. Skin is without rash or lesion. Neurologic examination is brief but nonfocal. - Labs CBC & Chem 7: 03/29/23 06:13 03/29/23 06:13 Labs: Abnormal Lab Results - Last 24 Hours (Table) 03/29/23 03/29/23 Range/Units 06:13 06:13 WBC 20.45 H (4.50-10.00) X 10*3/uL RBC 3.78 L (4.10-5.20) X 10*6/uL Hgb 11.0 L (12.0-15.0) g/dL Hct 35.8 L (37.2-46.3) % MCHC 30.7 L (32.0-37.0) g/dL RDW 16.0 H (11.5-14.5) % BUN 31.1 H (9.0-27.0) mg/dL Est GFR (CKD-EPI) 51 L (>=60) BUN/Creatinine Ratio 25.92 H (12.00-20.00) Ratio Alkaline Phosphatase 412 H (41-126) U/L Total Protein 5.6 L (6.2-8.2) g/dL Albumin 3.3 L (3.8-4.9) g/dL Albumin/Globulin Ratio 1.43 L (1.60-3.17) Ratio Assessment and Plan Assessment: Acute on chronic hypoxemic respiratory failure secondary to an acute exacerbation of COPD. Viral screen negative. Legionella screen negative. Pro- calcitonin negative, chest x-ray showed chronic changes in the left lower lobe. Chronic hypoxemic respiratory failure mainly utilizing oxygen at night through her CPAP. Obstructive sleep apnea utilizing CPAP at 12 cm water. Former smoker, quit 1 year ago. Leukocytosis, possibly steroid driven. History of anxiety/depression. History of bipolar disorder. Hyperlipidemia. History of gastroesophageal reflux disease. Hypothyroidism. Subcentimeter pulmonary nodule and earlier CAT scan of the chest on 07/04/2022 showed a few pulmonary nodules measuring up to 8 mm in size. These nodules within the left upper lobe right lower lobe and the right upper lobe. The repeat CAT scan of the chest that was done on 03/14/2023 showed a 14 x 8 mm subpleural lesion in the superior segment of the left lower lobe. Pulmonary nodules being followed up on outpatient basis. History of renal cell carcinoma, patient underwent an nephrectomy at [facility] on April 11, 2022, due to reported renal carcinoma. Patient is currently taking combination of Cabometyx and Nivolumab. Recent fall with a left displaced femoral neck fracture and the patient underwent a left hip arthroplasty on 02/28/2023. L1 compression fracture, offered a TLSO brace with ongoing chronic back pain. C. diff colitis, treated with oral vancomycin. Plan: Plan dated 03/27/2023. The patient's labs, x-rays, and medications are reviewed. The patient continues on bronchodilators and steroids. She continues on Lovenox for DVT prophylaxis. The patient is doing well from the pulmonary standpoint, and can be considered for discharge, in the near future. Currently, the patient is on 2 L of oxygen. Saturations are excellent. She does have an appointment to see my partner later this week, and can see him if she is discharged before that appointment. No additional recommendations are made. She is on appropriate medications inclu ding Symbicort, updrafts, and Solu-Medrol, which can be converted to prednisone. Plan dated 03/29/2023. The patient is seen today in room 458. She's feeling much better. She continues on 2 L of oxygen. Saturations are 95%. The patient is not receiving any IV fluids. Her most recent pro-calcitonin level was normal. Labs, x-rays, and medications are reviewed. We will continue to follow, and make recommendations along the way. Her Solu-Medrol can be converted to prednisone. Additional recommendations and suggestions are forthcoming. Time with Patient: Less than 30
[2023-03-29] MEDS: ATORVASTATIN 40 MG TAB PO SCH (17:52)
[2023-03-29] MEDS: ZIPRASIDONE 60 MG CAP PO SCH (17:53)
[2023-03-29] MEDS: ENOXAPARIN 40 MG/0.4 ML SYRINGE SQ SCH (20:21)
[2023-03-30] MEDS: HYDROcodone/APAP 7.5-325MG 1 EACH TAB PO PRN ×3 (00:23→12:46)
[2023-03-30 03:29] VITALS: RESP 18
[2023-03-30] MEDS: LEVOTHYROXINE 112 MCG TAB PO SCH (05:07)
[2023-03-30] MEDS: MAGNESIUM OXIDE 400 MG TAB PO SCH (05:07)
[2023-03-30] MEDS: CYANOCOBALAMIN 500 MCG TAB PO SCH (05:07)
[2023-03-30] MEDS: PANTOPRAZOLE 40 MG TABLET PO SCH (05:07)
[2023-03-30] MEDS: ZIPRASIDONE 40 MG CAP PO SCH (05:08)
[2023-03-30] MEDS: BALSALAZIDE DISODIUM 750 MG CAPSULE PO SCH ×2 (05:08→12:47)
[2023-03-30] MEDS: buPROPion SR 100 MG TABLET.ER PO SCH (05:08)
[2023-03-30] MEDS: PROPRANOLOL 20 MG TAB PO SCH (05:08)
[2023-03-30] MEDS: IPRATROPIUM-ALBUTEROL 3 ML NEB INHALATION SCH ×3 (07:50→16:02)
[2023-03-30] MEDS: SYMBICORT 80-4.5 MCG INHALER INHALATION SCH (07:51)
[2023-03-30 08:54] VITALS: BP 122/77; TEMP 97.7
[2023-03-30] MEDS: predniSONE 20 MG TAB PO SCH (09:13)
--- NOTE | 2023-03-30 10:44 | P.PN ---
Progress Note - Text Progress Note Date: 03/30/23 The patient is seen and examined at bedside. Her daughter brought her TLSO to her yesterday. He appears to work appropriately. She says her pain is very tolerable while she is laying down. She has difficulty getting up and around but she is managing and will start to use her brace more often. She says her breathing is better controlled now. She is afebrile. She is on 2 L nasal cannula. Lower extremities have sustained dorsal flexion plantarflexion EHL. Hips are nontender. Calves and thighs soft nontender. At her back she has some diffuse tenderness at her lower lumbar spine. There is no open wounds lacerations or abrasions. Assessment and plan From orthopedic spine standpoint patient has compression deformities at L1 L3 and L4. She is neurologically intact Continuing treatment for her respiratory issues We will see if patient has some benefit with more regular use of her TLSO brace. She has appropriate brace with her and she should use it whenever she is out of bed. She may remove it for bathing and while she is in bed. Hopefully she can do well with conservative treatment to get the bones to heal and L1 L3 and L4. We again discussed the possibility of surgical intervention with possibly kyphoplasty at those levels. She like to continue conservative treatment for now and it is okay for her to discharge with her TLSO brace as ordered with follow-up in the next couple weeks for recheck evaluation. I answered her questions and she is agreeable.
--- NOTE | 2023-03-30 11:28 | P.DS ---
Providers Date of admission: 03/24/23 19:54 Expected date of discharge: 03/30/23 Attending physician: Graciela Neumann MD Consults: 03/24/23 19:50 Consult Physician Routine Consulting Provider: Rob Ko Consult Reason/Comments: copd, pneumonia, hypoxia Do you want consulting provider notified?: Yes 03/29/23 11:46 Consult Physician Routine Consulting Provider: Fab Fregoso Consult Reason/Comments: Uncontrolled back pain, compression fractures L1, L3, and L4 Do you want consulting provider notified?: Yes Primary care physician: Sylvester Saenz MD Hospital Course: Discharge Diagnosis: Acute on chronic hypoxic respiratory failure COPD exacerbation Persistent leukocytosis, unlikely infectious Hypomagnesemia Acute on chronic low back pain with Multiple lumbar spine compression fracture Chronic cholecystitis Cholelithiasis and hepatomegaly CBD stent in place Recent left femoral neck fracture status post surgery Recent C. diff colitis History of ulcerative colitis Hospital Course: Patient is a 62-year-old female with a past medical history of of COPD with chronic hypoxic respiratory failure on continuous oxygen with 2 L O2 via nasal cannula, obstructive sleep apnea, recent left femoral neck fracture requiring surgical intervention, recent C. diff colitis, chronic cholecystitis, history of renal cancer status post nephrectomy. She presented to the emergency department on 03/14/23 from home with a chief complaint of increased shortness of breath. Patient was hypoxic on room air. Chest x-ray concerning for left lower lobe infiltrate. Laboratory workup showed WBC of 20.6, negative troponin, proBNP 906, respiratory viral panel was negative. Pulmonology was consulted. Likely COPD exacerbation, unlikely to be pneumonia. troponin negative at 0.05.Pro- calcitonin negative at 0.05. She was started on IV steroids, and bronchodilators. Due to persistent leukocytosis, had a gallbladder ultrasound that showed hepatomegaly and cholelithiasis with no evidence of sonographic Medrano's sign pain and stent seen in CBD with no signs of gallbladder wall thickening. Stent would need to be taken out by GI at [facility]. Also complaining of persistent back pain, CT of the lumbar spine showed moderate to severe anterior wedge compression fracture deformity at L1 previously present on 02/27/23 but shows slightly greater loss of height, mild to moderate compression fracture with superior endplate depression of L3 appears new since 02/27/23 and mild compression fracture with superior endplate depression of L4 again new since 02/27/23. Orthopedic surgery evaluated patient, recommending outpatient follow-up with possible interventions. For now, recommending conservative management. Patient being discharged home with steroid taper. Patient seen and examined at bedside. Vital signs reviewed and stable. General: Nontoxic, no distress and appears stated age. Derm: Skin warm and dry, normal coloration for ethnicity. Head: Atraumatic, normocephalic and symmetric. Eyes: EOMs intact, no lid lag, and anicteric sclera Mouth: no lip lesions, mucus membranes moist Cardiovascular: regular rate and rhythm with normal S1S2, no murmur, positive posterior tibial pulses bilaterally, and cap refill < 2 seconds. Lungs: Respirations even, regular, and unlabored on 2 L O2. Lungs diminished, no wheezes, rhonchi, rales, or crackles noted. No accessory muscle usage. Abdominal: soft, nontender to palpation, no guarding, no appreciable organomegaly Ext: ROM intact. No gross muscle atrophy, no edema, no contractures Neuro: Speech clear, face symmetrical and CN II-XII grossly intact with no noted focal neuro deficits Psych: Alert and oriented to person, place, time, and situation. Appropriate and pleasant affect. A total of 33 minutes of time were spent preparing this complex discharge summary. Patient was discharged on 03/30/23 at 1107. Patient Condition at Discharge: Stable Plan - Discharge Summary New Discharge Prescriptions: New predniSONE [Deltasone] 40 mg PO DAILY #25 tab Continue Ziprasidone [Geodon] 40 mg PO DAILY@0530 Mesalamine [Delzicol] 800 mg PO TID@0530,1200,1730 Albuterol Inhaler [Ventolin Hfa Inhaler] 2 puff INHALATION RT-Q6H PRN PRN Reason: Shortness Of Breath buPROPion HCL [Wellbutrin SR] 200 mg PO BID@0530,1730 Ziprasidone [Geodon] 60 mg PO HS@1730 Levothyroxine Sodium [Synthroid] 112 mcg PO DAILY@0530 Cyanocobalamin (Vitamin B-12) [Vitamin B-12] 1,000 mcg PO BID@0530,1730 Pantoprazole [Protonix] 40 mg PO BID@0530,1730 HYDROcodone/APAP 7.5-325MG [Burgin 7.5-325] 1 tab PO TID PRN #9 tab PRN Reason: Pain Multivitamins, Thera [Multivitamin (formulary)] 1 tab PO DAILY@0530 Atorvastatin Calcium [Lipitor] 40 mg PO HS@1729 Albuterol Nebulized [Ventolin Nebulized] 2.5 mg INHALATION RT-QID PRN PRN Reason: Shortness Of Breath Fluticasone/Umeclidin/Vilanter [Trelegy Ellipta 100-62.5-25] 1 puff INHALATION RT-DAILY ALPRAZolam [Xanax] 0.5 mg PO DAILY@0530 #6 tab Propranolol [Inderal] 20 mg PO BID@529,1729 Magnesium Oxide [Mag-Ox] 800 mg PO BID@529,1729 30 Days #60 tab Lidocaine 4% Patch 1 patch TRANSDERM DAILY Discontinued Midodrine [ProAmatine] 10 mg PO AC-TID #120 tab predniSONE See Taper PO DIRECTED 12 Days #30 tab Sodium Bicarbonate Tab 650 mg PO BID@529,1729 30 Days #60 tab Discharge Medication List Ziprasidone [Geodon] 40 mg PO DAILY@0530 02/07/14 [History] Albuterol Inhaler [Ventolin Hfa Inhaler] 2 puff INHALATION RT-Q6H PRN 11/07/17 [History] Mesalamine [Delzicol] 800 mg PO TID@0530,1200,172911/07/17 [History] Albuterol Nebulized [Ventolin Nebulized] 2.5 mg INHALATION RT-QID PRN 07/03/22 [History] Atorvastatin Calcium [Lipitor] 40 mg PO HS@172907/03/22 [History] Levothyroxine Sodium [Synthroid] 112 mcg PO DAILY@0507/03/22 [History] Multivitamins, Thera [Multivitamin (formulary)] 1 tab PO DAILY@52907/03/22 [History] Ziprasidone [Geodon] 60 mg PO HS@172907/03/22 [History] buPROPion HCL [Wellbutrin SR] 200 mg PO BID@0530,172907/03/22 [History] Cyanocobalamin (Vitamin B-12) [Vitamin B-12] 1,000 mcg PO BID@0530,172901/15/23 [History] Fluticasone/Umeclidin/Vilanter [Trelegy Ellipta 100-62.5-25] 1 puff INHALATION RT-DAILY 01/15/23 [History] Pantoprazole [Protonix] 40 mg PO BID@0530,1730 02/27/23 [History] ALPRAZolam [Xanax] 0.5 mg PO DAILY@0530 #6 tab 03/06/23 [Rx] Propranolol [Inderal] 20 mg PO BID@0530,1730 03/14/23 [History] Magnesium Oxide [Mag-Ox] 800 mg PO BID@0530,1730 30 Days #60 tab 03/17/23 [Rx] Lidocaine 4% Patch 1 patch TRANSDERM DAILY 03/24/23 [History] HYDROcodone/APAP 7.5-325MG [Burgin 7.5-325] 1 tab PO TID PRN #9 tab 03/30/23 [Rx] predniSONE [Deltasone] 40 mg PO DAILY #25 tab 03/30/23 [Rx] Follow up Appointment(s)/Referral(s): Sylvester Saenz MD [Primary Care Provider] - 1-2 days Eren Loja PAC [PHYSICIAN ELECTROPHONIC ENGINEER] - 3 Weeks (Patient may follow-up with Eren Loja PA-C or Dr. Marcos Fregoso at [facility] in 3 weeks following discharge. ) Jonathan Zeng DO [Doctor of Osteopathic Medicine] - 2 Weeks (Patient may follow-up with Dr. Zeng at [facility] in 2-3 weeks following discharge for her left hip. ) Rosales Acosta MD [STAFF PHYSICIAN] - 1 Week Patient Instructions/Handouts: COPD (Chronic Obstructive Pulmonary Disease) (DC), Thoracolumbar Fracture (DC) Activity/Diet/Wound Care/Special Instructions: [place] [facility] - [phone] - the home care will call you to schedule your in home visits. Please call them if you have any questions. Discharge Disposition: HOME SELF-CARE
[2023-03-30 12:08] VITALS: PULSE 92
[2023-03-30 12:09] VITALS: BMI 25.2
--- NOTE | 2023-03-30 14:35 | P.PN ---
Subjective Progress Note Date: 03/30/23 This a pleasant 62-year-old female patient with a known history of chronic obstructive pulmonary disease with an FEV1 value 63% of predicted, former smoker quit approximately 1 year ago, obstructive sleep apnea maintained on CPAP at 12 cm of water, renal cell carcinoma with previous right nephrectomy, hyp othyroidism, gastroesophageal reflux disease, anxiety, bipolar, depression, previous fall and left displaced femoral neck fracture requiring a left hip hemiarthroplasty on 02/28/2023. Since then she had been readmitted with a COPD exacerbation and discharged home again on 03/17/2023. She represented to the emergency room again yesterday with complaints of increasing shortness of breath, cough and congestion. Stating her pulse ox was 85% on her home O2 X-ray compared to 03/14/2023 show persistent left lower lobe atelectasis. Doppler of the left lower extremity revealed no evidence of DVT. White count 18.0. Hemoglobin 10.3. Platelets 366. Sodium 139. Potassium 4.6. Bicarb 27. BUN 16. Creatinine 0.84. Pro-calcitonin negative at 0.05. Her viral screen was negative. Legionella screen negative. She is seen today in consultation in the emergency department. Currently sitting up on a stretcher. Awake and alert in no acute distress. Maintaining good O2 saturations in the mid 90s on 2 L/m per nasal cannula. She's afebrile. Hemodynamically stable. She's been initiated on DuoNeb inhalations, Symbicort, Solu-Medrol and antibiotics in the form of azithromycin, vancomycin and cefepime. Lovenox for DVT prophylaxis. The patient is seen today 03/26/2023 in follow-up on the regular medical floor. She is currently sitting up in bed. Awake and alert in no acute distress. Feeling better today compared to yesterday. Maintaining O2 saturations in the 90s on 2 L/m per nasal cannula. Blood cultures revealed no growth. White count 20.0. Hemoglobin 10.4. Creatinine 0.90. She is continued on DuoNeb inhalations, Symbicort, Solu-Medrol. Lovenox for DVT prophylaxis. Progress note dated 03/27/2023. This is a 62-year-old female seen in room 458. She's currently on 2 L of oxygen. She does have a history of COPD, for 40 years of tobacco use. She's not receiving any IV fluids. She sees my partner in our office, for COPD, and CPAP recommendations. Currently, the patient feels like her breathing is improved. Current labs include a white count of 17.5, hemoglobin 10.3, hematocrit 35.1, platelet count 359,000. Creatinine is 0.89. Pro-calcitonin level is 0.05. Urine Legionella antigen is negative. Chest x-ray shows a patchy area of consolidation, left base. The patient is seen today 03/28/2023 in follow-up on the regular medical floor. She is awake and alert in no acute distress. She's been up ambulating in her room. No worsening shortness of breath, cough or congestion. She continues to maintain good O2 saturation in the 90s on 2 L/m per nasal cannula. She's afebrile. Hemodynamically stable. Blood cultures are revealing no growth. White count 20.1. Hemoglobin 11.1. Sodium 139. Potassium 4.4. Bicarb 33. BUN 28. Creatinine 1.0. Glucose 100. AST 38. ALT 35. She is continued on DuoNeb inhalations, Symbicort, Solu-Medrol. Lovenox for DVT prophylaxis. The patient is seen today 03/30/2023 in follow-up on the regular medical floor. She is sitting up in bed. Awake and alert in no acute distress. She denies any worsening shortness of breath, cough or congestion. She is feeling back to her baseline. She is continued on DuoNeb inhalations, Symbicort, prednisone taper. No new labs today. Objective - Vital Signs Vital signs: Vital Signs Temp 97.7 F 03/30/23 07:27 Pulse 92 03/30/23 12:07 Resp 18 03/30/23 07:27 BP 122/77 03/30/23 07:27 Pulse Ox 95 03/30/23 13:00 FiO2 Intake & Output 03/29/23 03/30/23 03/30/23 18:59 06:59 18:59 Intake Total 661 Output Total 2 Balance 659 Weight 62.596 kg Intake: Oral 661 Output: Stool 2 Other: # Voids 3 3 3 - Exam GENERAL EXAM: Alert, 62-year-old female, resting in bed, on 2 L nasal cannula, in no apparent distress. HEAD: Normocephalic. EYES: Normal reaction of pupils, equal size. NOSE: Clear with pink turbinates. THROAT: No erythema or exudates. NECK: No masses, no JVD. CHEST: No chest wall deformity. LUNGS: Equal air entry with faint crackle in the left base, end expiratory wheeze. CVS: S1 and S2 normal with no audible murmur, regular rhythm. ABDOMEN: No hepatosplenomegaly, normal bowel sounds, no guarding or rigidity. SPINE: No scoliosis or deformity SKIN: No rashes CENTRAL NERVOUS SYSTEM: No focal deficits, tone is normal in all 4 extremities. EXTREMITIES: There is no peripheral edema. No clubbing, no cyanosis. Peripheral pulses are intact. - Labs CBC & Chem 7: 03/29/23 06:13 03/29/23 06:13 Labs: Microbiology - Last 24 Hours (Table) 03/24/23 20:31 Blood Culture - Final Blood 03/24/23 20:04 Blood Culture - Final Blood Assessment and Plan Assessment: Acute on chronic hypoxemic respiratory failure secondary to an acute exacerbation of COPD. Viral screen negative. Legionella screen negative. Pro- calcitonin negative, chest x-ray showed chronic changes in the left lower lobe Frequent admissions, this is her third admission within the month Chronic hypoxemic respiratory failure mainly utilizing oxygen at night through her CPAP Obstructive sleep apnea utilizing CPAP at 12 cm water Former smoker, quit 1 year ago Leukocytosis, possibly steroid driven History of anxiety/depression History of bipolar disorder Hyperlipidemia History of gastroesophageal reflux disease Hypothyroidism Subcentimeter pulmonary nodule and earlier CAT scan of the chest on 07/04/2022 showed a few pulmonary nodules measuring up to 8 mm in size. These nodules within the left upper lobe right lower lobe and the right upper lobe. The repeat CAT scan of the chest that was done on 03/14/2023 showed a 14 x 8 mm subpleural lesion in the superior segment of the left lower lobe. Pulmonary nodules being followed up on outpatient basis History of renal cell carcinoma, patient underwent an nephrectomy at [facility] on April 11, 2022, due to reported renal carcinoma. Patient is currently taking combination of Cabometyx and Nivolumab. Recent fall with a left displaced femoral neck fracture and the patient underwent a left hip arthroplasty on 02/28/2023. L1 compression fracture, offered a TLSO brace with ongoing chronic back pain C. diff colitis, treated with oral vancomycin, currently inactive and stable Plan: The patient was seen and evaluated Medications reviewed cleared for discharge from the pulmonary standpoint Continue her home pulmonary medications, oxygen Complete a prednisone taper Follow-up in the office in 1 week I have personally seen and examined the patient, performed the documentation and the assessment and plan as written. Number of minutes spent on the visit: 10.
== END 2023-03-30 17:49 | disposition home health service (06) | DRG 189 ==
LOC: EC 13:21 → 4SSUR 19:54
PROVIDERS: ADMIT Internal Medicine; ATTEND Internal Medicine
DX: J96.21 Acute and chronic respiratory failure with hypoxia (principal); J44.1 Chronic obstructive pulmonary disease with (acute) exacerbation; K80.10 Calculus of gallbladder with chronic cholecystitis without obstruction; M48.56XA Collapsed vertebra, not elsewhere classified, lumbar region, initial encounter for fracture; C64.1 Malignant neoplasm of right kidney, except renal pelvis; K51.90 Ulcerative colitis, unspecified, without complications; R16.0 Hepatomegaly, not elsewhere classified; F31.9 Bipolar disorder, unspecified; M43.16 Spondylolisthesis, lumbar region; M48.061 Spinal stenosis, lumbar region without neurogenic claudication; G47.33 Obstructive sleep apnea (adult) (pediatric); D64.9 Anemia, unspecified; D72.829 Elevated white blood cell count, unspecified; E03.9 Hypothyroidism, unspecified; E78.5 Hyperlipidemia, unspecified; E83.42 Hypomagnesemia; F41.9 Anxiety disorder, unspecified; G89.29 Other chronic pain; K21.9 Gastro-esophageal reflux disease without esophagitis; K64.8 Other hemorrhoids; K76.9 Liver disease, unspecified; R91.8 Other nonspecific abnormal finding of lung field; S72.002D Fracture of unspecified part of neck of left femur, subsequent encounter for closed fracture with routine healing; Z99.81 Dependence on supplemental oxygen; Z79.51 Long term (current) use of inhaled steroids; Z79.890 Hormone replacement therapy; Z79.899 Other long term (current) drug therapy; Z87.01 Personal history of pneumonia (recurrent); Z87.891 Personal history of nicotine dependence; Z90.5 Acquired absence of kidney; Z96.642 Presence of left artificial hip joint; W19.XXXD Unspecified fall, subsequent encounter; Z88.6 Allergy status to analgesic agent; Z88.5 Allergy status to narcotic agent; Z88.0 Allergy status to penicillin; Z88.2 Allergy status to sulfonamides
CPT/HCPCS: 36415; 71045; 71046; 72131; 76705; 80048; 80053; 82565; 83735; 83880; 84145; 84484; 85025; 85027; 85610; 85730; 87040; 87449; 87636; 93005; 94640; 94760; 96365; 96366; 96368; 96372; 96375; 96376; 99291

== ENCOUNTER 2023-06-02 03:27 | Emergency (ER) | payer MEDICARE, OTHER ==
--- NOTE | 2023-06-02 03:38 | ED ---
SOB HPI - General Chief Complaint: Shortness of Breath Stated Complaint: YAN Time Seen by Provider: 06/02/23 03:28 Source: patient, RN notes reviewed, old records reviewed Mode of arrival: EMS Limitations: no limitations - History of Present Illness Initial Comments: This is a 62-year-old female to the ER for evaluation of shortness of breath. Patient is coming in for evaluation of low oxygen. Patient's oxygen was in the low 80s prior to initiating transport to the hospital. On arrival patient feels much improved this is after breathing treatment and supplemental oxygen. Patient denies chest pain or fever MD Complaint: shortness of breath, cough, "asthma attack", anxiety -: hour(s) Severity: severe Severity scale (1-10): 8 Consistency: constant Improves With: nothing Worsens With: nothing Known History Of: COPD, asthma Context: recent URI, recent illness Associated Symptoms: denies other symptoms - Related Data Home Medications Medication Instructions Recorded Confirmed Ziprasidone [Geodon] 40 mg PO DAILY@0530 02/07/14 03/24/23 Albuterol Inhaler [Ventolin Hfa 2 puff INHALATION RT-Q6H PRN 11/07/17 03/24/23 Inhaler] Mesalamine [Delzicol] 800 mg PO TID@0530,1200,172911/07/17 03/24/23 Albuterol Nebulized [Ventolin 2.5 mg INHALATION RT-QID PRN 07/03/22 03/24/23 Nebulized] Atorvastatin Calcium [Lipitor] 40 mg PO HS@17307/03/22 03/24/23 Levothyroxine Sodium [Synthroid] 112 mcg PO DAILY@0530 07/03/22 03/24/23 Multivitamins, Thera [Multivitamin 1 tab PO DAILY@0530 07/03/22 03/24/23 (formulary)] Ziprasidone [Geodon] 60 mg PO HS@172907/03/22 03/24/23 buPROPion HCL [Wellbutrin SR] 200 mg PO BID@0530,1730 07/03/22 03/24/23 Cyanocobalamin (Vitamin B-12) 1,000 mcg PO BID@0530,1730 01/15/23 03/24/23 [Vitamin B-12] Fluticasone/Umeclidin/Vilanter 1 puff INHALATION RT-DAILY 01/15/23 03/24/23 [Trelegy Ellipta 100-62.5-25] Propranolol [Inderal] 20 mg PO BID@0530,1730 03/14/23 03/24/23 Lidocaine 4% Patch 1 patch TRANSDERM DAILY 03/24/23 03/24/23 Previous Rx's Medication Instructions Recorded ALPRAZolam [Xanax] 0.5 mg PO DAILY@0530 #6 tab 03/06/23 Magnesium Oxide [Mag-Ox] 800 mg PO BID@0530,1730 30 Days 03/17/23 #60 tab HYDROcodone/APAP 7.5-325MG [[place] 1 tab PO TID PRN #9 tab 03/30/23 7.5-325] Pantoprazole [Protonix] 40 mg PO BID@0530,1730 #60 tab 03/30/23 predniSONE [Deltasone] 40 mg PO DAILY #25 tab 03/30/23 Allergies Allergy/AdvReac Type Severity Reaction Status Date / Time codeine Allergy Rash/Hives Verified 06/02/23 03:28 Penicillins Allergy Rash/Hives Verified 06/02/23 03:28 on feet Sulfa (Sulfonamide Allergy Rash/Hives Verified 06/02/23 03:28 Antibiotics) ibuprofen [From Motrin] AdvReac Nausea & Verified 06/02/23 03:28 Vomiting Review of Systems ROS Statement: Those systems with pertinent positive or pertinent negative responses have been documented in the HPI. ROS Other: All systems not noted in ROS Statement are negative. Past Medical History Past Medical History: Asthma, COPD, GERD/Reflux, Hyperlipidemia, Liver Disease, Sleep Apnea/CPAP/BIPAP Additional Past Medical History / Comment(s): hx internal hemorrhoid, kidney CA with right nephrectomy, CPAP use, colitis, IBS History of Any Multi-Drug Resistant Organisms: None Reported Past Surgical History: Hysterectomy Additional Past Surgical History / Comment(s): right nephrectomy 04/11/22 Past Anesthesia/Blood Transfusion Reactions: No Reported Reaction Past Psychological History: Anxiety, Bipolar, Depression Smoking Status: Former smoker Past Alcohol Use History: None Reported Past Drug Use History: None Reported General Exam General appearance: alert, in no apparent distress, anxious Head exam: Present: atraumatic, normocephalic, normal inspection Eye exam: Present: normal appearance, PERRL, EOMI. Absent: scleral icterus, conjunctival injection, periorbital swelling ENT exam: Present: normal exam, mucous membranes moist Neck exam: Present: normal inspection. Absent: tenderness, meningismus, lymphadenopathy Respiratory exam: Present: respiratory distress, wheezes, accessory muscle use, decreased breath sounds, prolonged expiratory. Absent: rales, rhonchi, stridor Cardiovascular Exam: Present: regular rate, normal rhythm, normal heart sounds. Absent: systolic murmur, diastolic murmur, rubs, gallop, clicks GI/Abdominal exam: Present: soft, normal bowel sounds. Absent: distended, tenderness, guarding, rebound, rigid Extremities exam: Present: normal inspection, full ROM, normal capillary refill. Absent: tenderness, pedal edema, joint swelling, calf tenderness Back exam: Present: normal inspection Neurological exam: Present: alert, oriented X3, CN II-XII intact Psychiatric exam: Present: normal affect, normal mood Skin exam: Present: warm, dry, intact, normal color. Absent: rash Course Vital Signs 06/02/23 06/02/23 06/02/23 03:29 03:43 03:45 Temperature 98 F Pulse Rate 113 H 113 H Respiratory 26 H 22 Rate Blood Pressure 130/82 O2 Sat by Pulse Oximetry 06/02/23 06/02/23 06/02/23 03:52 04:55 06:54 Temperature Pulse Rate 112 H 120 H 108 H Respiratory 17 19 Rate Blood Pressure 130/67 117/69 O2 Sat by Pulse 91 L 91 L Oximetry 06/02/23 08:21 Temperature 97.9 F Pulse Rate 107 H Respiratory 18 Rate Blood Pressure 111/71 O2 Sat by Pulse 95 Oximetry - Reevaluation(s) Reevaluation #1: 06/02/23 04:14 Medical records reviewed Reevaluation #2: Symptoms improved here in the ER Reevaluation #3: Patient informed of results and questions answered Reevaluation #4: Was pt. sent in by a medical professional or institution (, PA, ROOFER HELPER, urgent care, hospital, or [place] health care facility...) When possible be specific @ -no Did you speak to anyone other than the patient for history (EMS, parent, family, police, friend...)? What history was obtained from this source @ -no Did you review nursing and triage notes (agree or disagree)? Why? @ -agree Are old charts reviewed (outside hosp., previous admission, EMS record, old EKG, old radiological studies, urgent care reports/EKG's, [place] health care facility records)? Report findings @ -yes Differential Diagnosis (chest pain, altered mental status, abdominal pain women, abdominal pain men, vaginal bleeding, weakness, fever, dyspnea, syncope, headache, dizziness, GI bleed, back pain, seizure, CVA, palpatations, mental health, musculoskeletal)? @ -prior EKG interpreted by me (3pts min.). @ -yes X-rays interpreted by me (1pt min.). @ -yes negative for acute disease CT interpreted by me (1pt min.). @ -no U/S interpreted by me (1pt. min.). @ -no What testing was considered but not performed or refused? (CT, X-rays, U/S, labs)? Why? @ -none What meds were considered but not given or refused? Why? @ -none Did you discuss the management of the patient with other professionals (professionals i.e. , PA, ROOFER HELPER, lab, RT, psych nurse, social work job titles, family lawyer, teacher, protection officer, watch caser)? Give summary @ -no Was smoking cessation discussed for >3mins.? @ -no Was critical care preformed (if so, how long)? @ -no Were there social determinants of health that impacted care today? How? (Homelessness, low income, unemployed, alcoholism, drug addiction, transportation, low edu. Level, literacy, decrease access to med. care, fpc, rehab)? @ -none Was there de-escalation of care discussed even if they declined (Discuss DNR or withdrawal of care, Hospice)? DNR status @ -no What co-morbidities impacted this encounter? (DM, HTN, Smoking, COPD, CAD, Cancer, CVA, ARF, Chemo, Hep., AIDS, mental health diagnosis, sleep apnea, morbid obesity)? @ -none Was patient admitted / discharged? Hospital course, mention meds given and route, prescriptions, significant lab abnormalities, going to OR and other pertinent info. @ - 62 female to ER for evaluation of COPD exacerbation feeling improved here in the ER patient prefers discharge home Discharge Undiagnosed new problem with uncertain prognosis? @ -no Drug Therapy requiring intensive monitoring for toxicity (Heparin, Nitro, Insulin, Cardizem)? @ -no Were any procedures done? @ -no Diagnosis/symptom? @ -COPD and asthma exacerbation Acute, or Chronic, or Acute on Chronic? @ -Acute Uncomplicated (without systemic symptoms) or Complicated (systemic symptoms)? @ -Complicated Side effects of treatment? @ -no Exacerbation, Progression, or Severe Exacerbation? @ -exacerbation Poses a threat to life or bodily function? How? (Chest pain, [place], [place], pneumonia, PE, COPD, DKA, ARF, appy, cholecystitis, CVA, Diverticulitis, Homicidal, Suicidal, threat to staff... and all critical care pts) @ -yes with significant shortness of breath Reevaluation #5: Differential Dyspnea: Coronary syndrome, arrhythmia, tamponade, asthma, COPD, pulmonary embolism, pneumonia, pneumothorax, pulmonary effusion, anaphylaxis, diabetic ketoacidosis, flailed chest, pulmonary contusion, diaphragmatic rupture, anemia, neuromuscular, this is not meant to be an all-inclusive list. Medical Decision Making - Medical Decision Making 62 female to ER for evaluation of COPD exacerbation feeling improved here in the ER patient prefers discharge home - Lab Data Result diagrams: 06/02/23 03:45 06/02/23 03:45 Lab Results 06/02/23 06/02/23 06/02/23 Range/Units 03:45 03:45 03:45 WBC 21.6 H (3.8-10.6) k/uL RBC 4.26 (3.80-5.40) m/uL Hgb 12.0 (11.4-16.0) gm/dL Hct 39.2 (34.0-46.0) % MCV 91.9 (80.0-100.0) fL MCH 28.0 (25.0-35.0) pg MCHC 30.5 L (31.0-37.0) g/dL RDW 16.0 H (11.5-15.5) % Plt Count 441 (150-450) k/uL MPV 9.1 Neutrophils % 79 % Lymphocytes % 13 % Monocytes % 4 % Eosinophils % 2 % Basophils % 0 % Neutrophils # 17.1 H (1.3-7.7) k/uL Lymphocytes # 2.9 (1.0-4.8) k/uL Monocytes # 0.9 (0-1.0) k/uL Eosinophils # 0.4 (0-0.7) k/uL Basophils # 0.1 (0-0.2) k/uL Hypochromasia Marked PT 10.8 (10.0-12.5) sec INR 1.0 (<1.2) APTT 25.3 (22.0-30.0) sec Sodium 138 (137-145) mmol/L Potassium 5.3 H (3.5-5.1) mmol/L Chloride 106 (98-107) mmol/L Carbon Dioxide 30 (22-30) mmol/L Anion Gap 2 mmol/L BUN 24 H (7-17) mg/dL Creatinine 1.16 H (0.52-1.04) mg/dL Est GFR (CKD-EPI)AfAm 58 (>60 ml/min/1.73 sqM) Est GFR (CKD-EPI)NonAf 50 (>60 ml/min/1.73 sqM) Glucose 92 (74-99) mg/dL Calcium 9.1 (8.4-10.2) mg/dL Magnesium 1.6 (1.6-2.3) mg/dL Total Bilirubin 0.7 (0.2-1.3) mg/dL AST 43 H (14-36) U/L ALT 21 (4-34) U/L Alkaline Phosphatase 235 H (38-126) U/L Troponin I (0.000-0.034) ng/mL NT-Pro-B Natriuret Pep 190 pg/mL Total Protein 6.7 (6.3-8.2) g/dL Albumin 3.1 L (3.5-5.0) g/dL 06/02/23 Range/Units 03:45 WBC (3.8-10.6) k/uL RBC (3.80-5.40) m/uL Hgb (11.4-16.0) gm/dL Hct (34.0-46.0) % MCV (80.0-100.0) fL MCH (25.0-35.0) pg MCHC (31.0-37.0) g/dL RDW (11.5-15.5) % Plt Count (150-450) k/uL MPV Neutrophils % % Lymphocytes % % Monocytes % % Eosinophils % % Basophils % % Neutrophils # (1.3-7.7) k/uL Lymphocytes # (1.0-4.8) k/uL Monocytes # (0-1.0) k/uL Eosinophils # (0-0.7) k/uL Basophils # (0-0.2) k/uL Hypochromasia PT (10.0-12.5) sec INR (<1.2) APTT (22.0-30.0) sec Sodium (137-145) mmol/L Potassium (3.5-5.1) mmol/L Chloride (98-107) mmol/L Carbon Dioxide (22-30) mmol/L Anion Gap mmol/L BUN (7-17) mg/dL Creatinine (0.52-1.04) mg/dL Est GFR (CKD-EPI)AfAm (>60 ml/min/1.73 sqM) Est GFR (CKD-EPI)NonAf (>60 ml/min/1.73 sqM) Glucose (74-99) mg/dL Calcium (8.4-10.2) mg/dL Magnesium (1.6-2.3) mg/dL Total Bilirubin (0.2-1.3) mg/dL AST (14-36) U/L ALT (4-34) U/L Alkaline Phosphatase (38-126) U/L Troponin I <0.012 (0.000-0.034) ng/mL NT-Pro-B Natriuret Pep pg/mL Total Protein (6.3-8.2) g/dL Albumin (3.5-5.0) g/dL - EKG Data -: EKG Interpreted by Me (EKG is sinus 111 IL 148 QRS 83 QTc 384) - Radiology Data Radiology results: report reviewed (Chest x-ray is negative for acute disease), image reviewed Disposition Clinical Impression: COPD exacerbation, Dyspnea Disposition: HOME SELF-CARE Condition: Good Instructions (If sedation given, give patient instructions): Acute Bronchitis (ED), Chronic Bronchitis (ED) Is patient prescribed a controlled substance at d/c from ED?: No Referrals: Sylvester Saenz MD [Primary Care Provider] - 1-2 days Time of Disposition: 05:00
[2023-06-02] MEDS: IPRATROPIUM-ALBUTEROL 3 ML NEB INHALATION STA (03:43)
[2023-06-02] MEDS: SODIUM CHLORIDE 0.9% 1,000 ML IV STA (03:48)
[2023-06-02] MEDS: ALBUTEROL NEBULIZED 2.5 MG/3 ML INHALATION STA (03:49)
[2023-06-02] MEDS: IPRATROPIUM 0.5 MG/2.5 ML NEBU INHALATION STA (03:49)
--- NOTE | 2023-06-02 03:58 | XR ---
EXAMINATION TYPE: XR chest 1V portable DATE OF EXAM: 06/02/2023 COMPARISON: Prior chest x-ray March 25, 2023 HISTORY: Shortness of breath TECHNIQUE: Single frontal view of the chest is obtained. FINDINGS: Left basilar opacity redemonstrated. New right basilar opacity noted. Increasing central v ascular congestion is present. Mild cardiomegaly is seen. Osseous structures are intact. IMPRESSION: Bibasal acute infiltrate and/or atelectasis redemonstrated. Central vascular congestion is suspected. Correlate for fluid overload state.
[2023-06-02 03:59] LABS: Basophils # (A) 0.1 k/uL (0-0.2); Basophils % (A) 0 %; Eosinophils # (A) 0.4 k/uL (0-0.7); Eosinophils % (A) 2 %; HCT 39.2 % (34.0-46.0); Hypochromasia Marked; Lymphocytes # (A) 2.9 k/uL (1.0-4.8); Lymphocytes % (A) 13 %; MCHC 30.5 g/dL (31.0-37.0); MCV 91.9 fL (80.0-100.0); Mean Platelet Volume 9.1; Monocytes # (A) 0.9 k/uL (0-1.0); Monocytes % (A) 4 %; Neutrophils # (A) 17.1 k/uL (1.3-7.7); Neutrophils % (A) 79 %; Platelet Count 441 k/uL (150-450); RBC 4.26 m/uL (3.80-5.40); WBC 21.6 k/uL (3.8-10.6)
[2023-06-02 04:04] LABS: ALT 21 U/L (4-34); AST 43 U/L (14-36); African American GFR (CKD) 58 (>60 ml/min/1.73 sqM); Albumin 3.1 g/dL (3.5-5.0); Alkaline Phosphatase 235 U/L (38-126); Anion Gap 2 mmol/L; Blood Urea Nitrogen 24 mg/dL (7-17); Calcium 9.1 mg/dL (8.4-10.2); Carbon Dioxide 30 mmol/L (22-30); Chloride 106 mmol/L (98-107); Glucose 92 mg/dL (74-99); Magnesium 1.6 mg/dL (1.6-2.3); Non-African American GFR(CKD) 50 (>60 ml/min/1.73 sqM); Sodium 138 mmol/L (137-145); Total Bilirubin 0.7 mg/dL (0.2-1.3); Total Protein 6.7 g/dL (6.3-8.2)
[2023-06-02 04:13] LABS: NT-Pro-B-Type Natriuretic Pept 190 pg/mL
[2023-06-02 04:25] LABS: Potassium 5.3 mmol/L (3.5-5.1)
[2023-06-02 04:43] LABS: Partial Thromboplastin Time 25.3 sec (22.0-30.0); Prothrombin Time 10.8 sec (10.0-12.5)
[2023-06-02 08:35] VITALS: BP 111/71; PULSE 107; RESP 18; TEMP 97.9
== END 2023-06-02 08:22 | disposition home or self-care (01) ==
LOC: EC 03:27
DX: J44.1 Chronic obstructive pulmonary disease with (acute) exacerbation (principal); Z88.0 Allergy status to penicillin; Z88.2 Allergy status to sulfonamides; Z88.6 Allergy status to analgesic agent; Z88.5 Allergy status to narcotic agent; Z87.891 Personal history of nicotine dependence; Z79.51 Long term (current) use of inhaled steroids; Z79.899 Other long term (current) drug therapy
CPT/HCPCS: 36415; 71045; 80053; 83735; 83880; 84484; 85025; 85610; 85730; 93005; 94640; 96360; 96361; 99285

== ENCOUNTER → 2023-06-07 | Outpatient (CLI) | payer MEDICARE, OTHER ==
--- NOTE | 2023-06-07 15:27 | CT ---
EXAMINATION TYPE: CT ChestAbdPelvis wo con CT DLP: 921 mGycm, Automated exposure control for dose reduction was used. DATE OF EXAM: 06/07/2023 3:06 PM COMPARISON: CT abdomen 01/15/2023, CT chest 07/04/2022 CLINICAL INDICATION:Female, 62 years old with history of C64.1 MALIGNANT NEOPLASM OF RIGHT KIDNEY, EX CEPT R; PHH, carcinoma kidney Technique: Multiple axial images of the chest, abdomen, and pelvis were obtained. Two-dimensional cor onal and sagittal reconstructions were obtained. Contrast used: None Oral contrast used: with Oral Contrast Findings: CHEST: LUNGS/ PLEURA: There is interval development of scattered groundglass nodules, some of which are actu ally in bud configuration throughout the lungs. Consolidative changes are noted within the posterior portions of the right and left lower lungs. Additional subcentimeter pulmonary nodules are stable in appearance. AIRWAY: Patent and unremarkable. HEART: Size within normal limits. MEDIASTINUM: No gross evidence of adenopathy. VASCULATURE: Atherosclerotic calcifications are present throughout the aorta and its branches. MUSCULOSKELETAL: Interval development of compression deformities of the T11, T12, L1, L3 vertebral aliya dies with approximately 50% height loss of the T12 and 75% height loss of L1 vertebral bodies. No sig nificant retropulsion is identified in this area SOFT TISSUES/LYMPH NODES: Unremarkable. LOWER NECK: No significant findings. ABDOMEN: ABDOMEN LIVER: Unremarkable GALLBLADDER AND BILE DUCTS: Biliary drain is identified. No evidence of biliary duct dilation. Cholel ithiasis present. PANCREAS: Unremarkable. SPLEEN: Unremarkable. ADRENAL GLANDS: Stable nodular thickening of the left adrenal gland. KIDNEYS AND URETERS: The left renal cysts are identified. The right kidney is absent. PELVIS BLADDER: Decompressed. REPRODUCTIVE: Unremarkable. ABDOMEN & PELVIS STOMACH AND BOWEL: Stomach and duodenum are unremarkable. No evidence of bowel obstruction. PERITONEUM: No evidence of pneumoperitoneum or free fluid. VASCULATURE: Moderate atherosclerotic calcifications are present throughout the abdominal aorta and i ts branches. MUSCULOSKELETAL: Left hip prosthesis is identified. LYMPH NODES: New left para-aortic lymph node measuring 2.2cm in the axial plane. SOFT TISSUE/ABDOMINAL WALL: Unremarkable IMPRESSION: 1. Scattered groundglass nodules throughout the lungs, felt related to underlying infectious/inflamma tory process. 2. Interval development of depression deformities of the T11, T12, L1, and L3 vertebral bodies with u p to 75% height loss. 3. New left para-aortic lymph node measuring 2.2 cm. This potentially represents a site of concern fo r metastatic disease.
== END | disposition home or self-care (01) ==
LOC: RADCTMAIN 13:38
PROVIDERS: ATTEND Internal Medicine Hematology & Oncology
DX: C64.1 Malignant neoplasm of right kidney, except renal pelvis (principal); R91.8 Other nonspecific abnormal finding of lung field; N18.9 Chronic kidney disease, unspecified; J44.9 Chronic obstructive pulmonary disease, unspecified; M12.9 Arthropathy, unspecified
CPT/HCPCS: 71250; 74176

== ENCOUNTER 2023-09-09 10:52 | Inpatient (IN) | payer MEDICARE, OTHER ==
--- NOTE | 2023-09-09 11:21 | ED ---
General Adult HPI - General Chief complaint: Weakness Stated complaint: weak Time Seen by Provider: 09/09/23 10:54 Source: patient, EMS, RN notes reviewed Mode of arrival: EMS Limitations: no limitations - History of Present Illness Initial comments: Patient is a 63-year-old female present to the emergency department with concerns with general weakness. Symptoms worsen mostly today. Patient is fallen 4 times today. No significant injury. Patient does have dyspnea however dyspnea is chronic. Patient did take nebulizer prior to arrival. Patient is on home O2. Oxygen has been around 90 at home. No confusion or isolated area of weakness. No fever - Related Data Home Medications Medication Instructions Recorded Confirmed Ziprasidone [Geodon] 40 mg PO DAILY@0530 02/07/14 03/24/23 Albuterol Inhaler [Ventolin Hfa 2 puff INHALATION RT-Q6H PRN 11/07/17 03/24/23 Inhaler] Mesalamine [Delzicol] 800 mg PO TID@0530,1200,1730 11/07/17 03/24/23 Albuterol Nebulized [Ventolin 2.5 mg INHALATION RT-QID PRN 07/03/22 03/24/23 Nebulized] Atorvastatin Calcium [Lipitor] 40 mg PO HS@17307/03/22 03/24/23 Levothyroxine Sodium [Synthroid] 112 mcg PO DAILY@0530 07/03/22 03/24/23 Multivitamins, Thera [Multivitamin 1 tab PO DAILY@0530 07/03/22 03/24/23 (formulary)] Ziprasidone [Geodon] 60 mg PO HS@17307/03/22 03/24/23 buPROPion HCL [Wellbutrin SR] 200 mg PO BID@0530,1730 07/03/22 03/24/23 Cyanocobalamin (Vitamin B-12) 1,000 mcg PO BID@0530,1730 01/15/23 03/24/23 [Vitamin B-12] Fluticasone/Umeclidin/Vilanter 1 puff INHALATION RT-DAILY 01/15/23 03/24/23 [Trelegy Ellipta 100-62.5-25] Propranolol [Inderal] 20 mg PO BID@0530,1730 03/14/23 03/24/23 Lidocaine 4% Patch 1 patch TRANSDERM DAILY 03/24/23 03/24/23 Previous Rx's Medication Instructions Recorded ALPRAZolam [Xanax] 0.5 mg PO DAILY@0530 #6 tab 03/06/23 Magnesium Oxide [Mag-Ox] 800 mg PO BID@0530,1730 30 Days 03/17/23 #60 tab HYDROcodone/APAP 7.5-325MG [Scobey 1 tab PO TID PRN #9 tab 03/30/23 7.5-325] Pantoprazole [Protonix] 40 mg PO BID@0530,1730 #60 tab 03/30/23 predniSONE [Deltasone] 40 mg PO DAILY #25 tab 03/30/23 Allergies Allergy/AdvReac Type Severity Reaction Status Date / Time codeine Allergy Rash/Hives Verified 06/02/23 03:28 Penicillins Allergy Rash/Hives Verified 06/02/23 03:28 on feet Sulfa (Sulfonamide Allergy Rash/Hives Verified 06/02/23 03:28 Antibiotics) ibuprofen [From Motrin] AdvReac Nausea & Verified 06/02/23 03:28 Vomiting Review of Systems ROS Statement: Those systems with pertinent positive or pertinent negative responses have been documented in the HPI. ROS Other: All systems not noted in ROS Statement are negative. Constitutional: Denies: fever ENT: Denies: ear pain Respiratory: Reports: as per HPI, dyspnea Cardiovascular: Denies: chest pain Endocrine: Reports: fatigue Gastrointestinal: Denies: abdominal pain Neurological: Reports: as per HPI, weakness. Denies: headache, numbness, paresthesias, confusion Past Medical History Past Medical History: Asthma, COPD, GERD/Reflux, Hyperlipidemia, Liver Disease, Sleep Apnea/CPAP/BIPAP Additional Past Medical History / Comment(s): hx internal hemorrhoid, kidney CA with right nephrectomy, CPAP use, colitis, IBS History of Any Multi-Drug Resistant Organisms: None Reported Past Surgical History: Hysterectomy Additional Past Surgical History / Comment(s): right nephrectomy 04/11/22 Past Anesthesia/Blood Transfusion Reactions: No Reported Reaction Past Psychological History: Anxiety, Bipolar, Depression Smoking Status: Former smoker Past Alcohol Use History: None Reported Past Drug Use History: None Reported General Exam Limitations: no limitations General appearance: alert Head exam: Present: normocephalic Eye exam: Present: normal appearance ENT exam: Present: mucous membranes dry Neck exam: Present: normal inspection Respiratory exam: Present: respiratory distress, wheezes, rales, accessory muscle use Cardiovascular Exam: Present: tachycardia GI/Abdominal exam: Present: soft. Absent: tenderness Extremities exam: Present: normal inspection. Absent: pedal edema, calf tenderness Back exam: Present: normal inspection Neurological exam: Present: alert, oriented X3, CN II-XII intact. Absent: motor sensory deficit Expanded Neurological exam: Present: protecting the airway Speech: Present: fluid speech Cranial nerves: EOM's Intact: Normal Motor strength exam: RUE: 5, LUE: 5, RLE: 5, LLE: 5 Eye Response: (4) open spontaneously Motor Response: (6) obeys commands Verbal Response: (5) oriented Psychiatric exam: Present: normal affect, normal mood Skin exam: Present: normal color Course Vital Signs 09/09/23 09/09/23 09/09/23 11:04 11:46 11:58 Temperature 98.4 F Pulse Rate 104 H 99 98 Respiratory 16 24 Rate Blood Pressure 127/80 O2 Sat by Pulse 89 L Oximetry Fraction of 100 Inspired Oxygen (FIO2) EKG Findings - EKG Results: EKG: interpreted by ERMD (Left axis. Poor R wave progression.), sinus rhythm, normal ST/T EKG shows: tachycardia Procedures - ABG Interpretation Ph: 7.36 PCO2: 69.3 PO2: 58.6 Medical Decision Making - Medical Decision Making Was pt. sent in by a medical professional or institution (, PA, KENNEL ATTENDANT, urgent care, hospital, or skilled nursing...) When possible be specific @ -No Did you speak to anyone other than the patient for history (EMS, parent, family, police, friend...)? What history was obtained from this source @ -No Did you review nursing and triage notes (agree or disagree)? Why? @ -I reviewed and agree with nursing and triage notes Were old charts reviewed (outside hosp., previous admission, EMS record, old EKG, old radiological studies, urgent care reports/EKG's, skilled nursing records)? Report findings @ -Previous chest x-ray was reviewed Differential Diagnosis (chest pain, altered mental status, abdominal pain women, abdominal pain men, vaginal bleeding, weakness, fever, dyspnea, syncope, headache, dizziness, GI bleed, back pain, seizure, CVA, palpatations, mental health, musculoskeletal)? @ -Differential Dyspnea: Coronary syndrome, arrhythmia, tamponade, asthma, COPD, pulmonary embolism, pneumonia, pneumothorax, pulmonary effusion, anaphylaxis, diabetic ketoacidosis, flailed chest, pulmonary contusion, diaphragmatic rupture, anemia, neuromuscular, this is not meant to be an all-inclusive list. EKG interpreted by me (3pts min.). @ -As above X-rays interpreted by me (1pt min.). @ -Chest x-ray shows bibasilar CT interpreted by me (1pt min.). @ -None done U/S interpreted by me (1pt. min.). @ -None done What testing was considered but not performed or refused? (CT, X-rays, U/S, labs)? Why? @ -None What meds were considered but not given or refused? Why? @ -None Did you discuss the management of the patient with other professionals (professionals i.e. , PA, KENNEL ATTENDANT, lab, RT, psych nurse, healthcare social worker, park ranger, teacher, chief administrative officer, immigration case manager)? Give summary @ -Case discussed with Dr. Kahn will admit covering Dr. Mosqueda Was smoking cessation discussed for >3mins.? @ -No Was critical care preformed (if so, how long)? @ -32 minutes critical care time Were there social determinants of health that impacted care today? How? (Homelessness, low income, unemployed, alcoholism, drug addiction, transportation, low edu. Level, literacy, decrease access to med. care, nursing home, rehab)? @ -No Was there de-escalation of care discussed even if they declined (Discuss DNR or withdrawal of care, Hospice)? DNR status @ -No What co-morbidities impacted this encounter? (DM, HTN, Smoking, COPD, CAD, Cancer, CVA, ARF, Chemo, Hep., AIDS, mental health diagnosis, sleep apnea, morbid obesity)? @ -COPD history Was patient admitted / discharged? Hospital course, mention meds given and route, prescriptions, significant lab abnormalities, going to OR and other pertinent info. @ -Patient presents with mild respiratory distress and general weakness. Patient is in respiratory failure and responding well to BiPAP. Patient will be admitted. Blood culture lactic acid and IV antibiotics all started. Undiagnosed new problem with uncertain prognosis? @ -No Drug Therapy requiring intensive monitoring for toxicity (Heparin, Nitro, Insulin, Cardizem)? @ -No Were any procedures done? @ -No Diagnosis/symptom? @ -Respiratory failure, COPD, pneumonia Acute, or Chronic, or Acute on Chronic? @ -Acute, acute, acute Uncomplicated (without systemic symptoms) or Complicated (systemic symptoms)? @ -Default Side effects of treatment? @ -No Exacerbation, Progression, or Severe Exacerbation? @ -Severe exacerbation COPD Poses a threat to life or bodily function? How? (Chest pain, [place], SD, pneumonia, PE, COPD, DKA, ARF, appy, cholecystitis, CVA, Diverticulitis, Homicidal, Suicidal, threat to staff... and all critical care pts) @ -Threat to pulmonary function and oxygenation o - Lab Data Result diagrams: 09/09/23 11:34 09/09/23 11:34 Lab Results 09/09/23 09/09/23 09/09/23 Range/Units 11:34 11:34 11:34 WBC 8.9 (3.8-10.6) k/uL RBC 4.60 (3.80-5.40) m/uL Hgb 13.1 (11.4-16.0) gm/dL Hct 44.7 (34.0-46.0) % MCV 97.1 (80.0-100.0) fL MCH 28.5 (25.0-35.0) pg MCHC 29.3 L (31.0-37.0) g/dL RDW 14.3 (11.5-15.5) % Plt Count 181 (150-450) k/uL MPV 9.2 Neutrophils % 71 % Lymphocytes % 17 % Monocytes % 6 % Eosinophils % 4 % Basophils % 1 % Neutrophils # 6.3 (1.3-7.7) k/uL Lymphocytes # 1.5 (1.0-4.8) k/uL Monocytes # 0.5 (0-1.0) k/uL Eosinophils # 0.4 (0-0.7) k/uL Basophils # 0.1 (0-0.2) k/uL Hypochromasia Marked PT 10.3 (10.0-12.5) sec INR 0.9 (<1.2) APTT 24.2 (22.0-30.0) sec Sample Site ABG pH (7.35-7.45) ABG pCO2 (35-45) mmHg ABG pO2 (83-108) mmHg ABG HCO3 (21-25) mmol/L ABG Total CO2 (19-24) mmol/L ABG O2 Saturation (94-97) % ABG Base Excess mmol/L Italo Test FiO2 % Sodium 143 (137-145) mmol/L Potassium 5.5 H (3.5-5.1) mmol/L Chloride 103 (98-107) mmol/L Carbon Dioxide 36 H (22-30) mmol/L Anion Gap 4 mmol/L BUN 33 H (7-17) mg/dL Creatinine 1.19 H (0.52-1.04) mg/dL Est GFR (CKD-EPI)AfAm 56 (>60 ml/min/1.73 sqM) Est GFR (CKD-EPI)NonAf 48 (>60 ml/min/1.73 sqM) Glucose 111 H (74-99) mg/dL Plasma Lactic Acid Jimmy (0.7-2.0) mmol/L Calcium 9.6 (8.4-10.2) mg/dL Magnesium 2.0 (1.6-2.3) mg/dL Total Bilirubin 0.5 (0.2-1.3) mg/dL AST 47 H (14-36) U/L ALT 63 H (4-34) U/L Alkaline Phosphatase 170 H (38-126) U/L Troponin I (0.000-0.034) ng/mL NT-Pro-B Natriuret Pep 137 pg/mL Total Protein 6.6 (6.3-8.2) g/dL Albumin 3.7 (3.5-5.0) g/dL TSH 3.520 (0.465-4.680) mIU/L Free T4 1.52 (0.78-2.19) ng/dL Influenza Type A (PCR) (Not Detectd) Influenza Type B (PCR) (Not Detectd) RSV (PCR) (Not Detectd) SARS-CoV-2 (PCR) (Not Detectd) 09/09/23 09/09/23 09/09/23 Range/Units 11:34 11:34 11:34 WBC (3.8-10.6) k/uL RBC (3.80-5.40) m/uL Hgb (11.4-16.0) gm/dL Hct (34.0-46.0) % MCV (80.0-100.0) fL MCH (25.0-35.0) pg MCHC (31.0-37.0) g/dL RDW (11.5-15.5) % Plt Count (150-450) k/uL MPV Neutrophils % % Lymphocytes % % Monocytes % % Eosinophils % % Basophils % % Neutrophils # (1.3-7.7) k/uL Lymphocytes # (1.0-4.8) k/uL Monocytes # (0-1.0) k/uL Eosinophils # (0-0.7) k/uL Basophils # (0-0.2) k/uL Hypochromasia PT (10.0-12.5) sec INR (<1.2) APTT (22.0-30.0) sec Sample Site Right Radial ABG pH 7.37 (7.35-7.45) ABG pCO2 69 H (35-45) mmHg ABG pO2 59 L* (83-108) mmHg ABG HCO3 40 H* (21-25) mmol/L ABG Total CO2 42 H (19-24) mmol/L ABG O2 Saturation 90.2 L (94-97) % ABG Base Excess 11.4 mmol/L Italo Test Yes FiO2 44 % Sodium (137-145) mmol/L Potassium (3.5-5.1) mmol/L Chloride (98-107) mmol/L Carbon Dioxide (22-30) mmol/L Anion Gap mmol/L BUN (7-17) mg/dL Creatinine (0.52-1.04) mg/dL Est GFR (CKD-EPI)AfAm (>60 ml/min/1.73 sqM) Est GFR (CKD-EPI)NonAf (>60 ml/min/1.73 sqM) Glucose (74-99) mg/dL Plasma Lactic Acid Jimmy 1.2 (0.7-2.0) mmol/L Calcium (8.4-10.2) mg/dL Magnesium (1.6-2.3) mg/dL Total Bilirubin (0.2-1.3) mg/dL AST (14-36) U/L ALT (4-34) U/L Alkaline Phosphatase (38-126) U/L Troponin I <0.012 (0.000-0.034) ng/mL NT-Pro-B Natriuret Pep pg/mL Total Protein (6.3-8.2) g/dL Albumin (3.5-5.0) g/dL TSH (0.465-4.680) mIU/L Free T4 (0.78-2.19) ng/dL Influenza Type A (PCR) (Not Detectd) Influenza Type B (PCR) (Not Detectd) RSV (PCR) (Not Detectd) SARS-CoV-2 (PCR) (Not Detectd) 09/09/23 Range/Units 11:42 WBC (3.8-10.6) k/uL RBC (3.80-5.40) m/uL Hgb (11.4-16.0) gm/dL Hct (34.0-46.0) % MCV (80.0-100.0) fL MCH (25.0-35.0) pg MCHC (31.0-37.0) g/dL RDW (11.5-15.5) % Plt Count (150-450) k/uL MPV Neutrophils % % Lymphocytes % % Monocytes % % Eosinophils % % Basophils % % Neutrophils # (1.3-7.7) k/uL Lymphocytes # (1.0-4.8) k/uL Monocytes # (0-1.0) k/uL Eosinophils # (0-0.7) k/uL Basophils # (0-0.2) k/uL Hypochromasia PT (10.0-12.5) sec INR (<1.2) APTT (22.0-30.0) sec Sample Site ABG pH (7.35-7.45) ABG pCO2 (35-45) mmHg ABG pO2 (83-108) mmHg ABG HCO3 (21-25) mmol/L ABG Total CO2 (19-24) mmol/L ABG O2 Saturation (94-97) % ABG Base Excess mmol/L Italo Test FiO2 % Sodium (137-145) mmol/L Potassium (3.5-5.1) mmol/L Chloride (98-107) mmol/L Carbon Dioxide (22-30) mmol/L Anion Gap mmol/L BUN (7-17) mg/dL Creatinine (0.52-1.04) mg/dL Est GFR (CKD-EPI)AfAm (>60 ml/min/1.73 sqM) Est GFR (CKD-EPI)NonAf (>60 ml/min/1.73 sqM) Glucose (74-99) mg/dL Plasma Lactic Acid Jimmy (0.7-2.0) mmol/L Calcium (8.4-10.2) mg/dL Magnesium (1.6-2.3) mg/dL Total Bilirubin (0.2-1.3) mg/dL AST (14-36) U/L ALT (4-34) U/L Alkaline Phosphatase (38-126) U/L Troponin I (0.000-0.034) ng/mL NT-Pro-B Natriuret Pep pg/mL Total Protein (6.3-8.2) g/dL Albumin (3.5-5.0) g/dL TSH (0.465-4.680) mIU/L Free T4 (0.78-2.19) ng/dL Influenza Type A (PCR) Not Detected (Not Detectd) Influenza Type B (PCR) Not Detected (Not Detectd) RSV (PCR) Not Detected (Not Detectd) SARS-CoV-2 (PCR) Not Detected (Not Detectd) Disposition Clinical Impression: Pneumonia, COPD exacerbation, Respiratory failure Disposition: ADMITTED IP TO THIS HOSP Condition: Serious Is patient prescribed a controlled substance at d/c from ED?: No Referrals: Rl Gan MD [Primary Care Provider] - 1-2 days Time of Disposition: 12:54
[2023-09-09 11:36] LABS: ABG Base Excess 11.4 mmol/L; ABG Oxygen Saturation 90.2 % (94-97); ABG PCO2 69 mmHg (35-45); ABG PH 7.37 (7.35-7.45); ABG TCO2 42 mmol/L (19-24); Allen Test Performed? Yes
[2023-09-09] MEDS: IPRATROPIUM-ALBUTEROL 3 ML NEB INHALATION STA (11:45)
[2023-09-09 11:51] LABS: ABG HCO3 40 mmol/L (21-25); ABG PO2 59 mmHg (83-108)
[2023-09-09 11:52] LABS: Basophils # (A) 0.1 k/uL (0-0.2); Basophils % (A) 1 %; Eosinophils # (A) 0.4 k/uL (0-0.7); Eosinophils % (A) 4 %; HCT 44.7 % (34.0-46.0); HGB 13.1 gm/dL (11.4-16.0); Hypochromasia Marked; Lymphocytes # (A) 1.5 k/uL (1.0-4.8); Lymphocytes % (A) 17 %; MCH 28.5 pg (25.0-35.0); MCHC 29.3 g/dL (31.0-37.0); MCV 97.1 fL (80.0-100.0); Mean Platelet Volume 9.2; Monocytes # (A) 0.5 k/uL (0-1.0); Monocytes % (A) 6 %; Neutrophils # (A) 6.3 k/uL (1.3-7.7); Neutrophils % (A) 71 %; Platelet Count 181 k/uL (150-450); RDW 14.3 % (11.5-15.5); WBC 8.9 k/uL (3.8-10.6)
[2023-09-09 12:02] LABS: INR 0.9 (<1.2); Partial Thromboplastin Time 24.2 sec (22.0-30.0); Prothrombin Time 10.3 sec (10.0-12.5)
[2023-09-09 12:18] LABS: ALT 63 U/L (4-34); AST 47 U/L (14-36); African American GFR (CKD) 56 (>60 ml/min/1.73 sqM); Albumin 3.7 g/dL (3.5-5.0); Alkaline Phosphatase 170 U/L (38-126); Anion Gap 4 mmol/L; Blood Urea Nitrogen 33 mg/dL (7-17); Calcium 9.6 mg/dL (8.4-10.2); Carbon Dioxide 36 mmol/L (22-30); Chloride 103 mmol/L (98-107); Glucose 111 mg/dL (74-99); Non-African American GFR(CKD) 48 (>60 ml/min/1.73 sqM); Potassium 5.5 mmol/L (3.5-5.1); Sodium 143 mmol/L (137-145); Total Bilirubin 0.5 mg/dL (0.2-1.3); Total Protein 6.6 g/dL (6.3-8.2)
[2023-09-09 12:24] LABS: NT-Pro-B-Type Natriuretic Pept 137 pg/mL
[2023-09-09 12:32] LABS: T4, Free (Free Thyroxine) 1.52 ng/dL (0.78-2.19)
--- NOTE | 2023-09-09 12:45 | XR ---
EXAMINATION TYPE: XR chest 1V portable DATE OF EXAM: 09/09/2023 COMPARISON: 06/02/2023 INDICATION: Difficulty breathing TECHNIQUE: Single frontal view of the chest is obtained. FINDINGS: The heart size is normal. The pulmonary vasculature is normal. Left lower lobe infiltrate is present. Some mild right lower lobe infiltrate may be present. Correlat e for atelectasis or pneumonia IMPRESSION: 1. Bibasilar treatment. Correlate for atelectasis or pneumonia.
[2023-09-09] MEDS ORDERED: ACETAMINOPHEN TAB 325 MG TAB PO PRN (12:54)
[2023-09-09] MEDS ORDERED: NALOXONE 0.4 MG/ML 1 ML VIAL IVP PRN (12:54)
[2023-09-09] MEDS ORDERED: IPRATROPIUM-ALBUTEROL 3 ML NEB INHALATION PRN (12:54)
[2023-09-09] MEDS: methylPREDNISolone SOD SUCCI 125 MG/2 ML VIAL IV STA (14:14)
[2023-09-09] MEDS: IPRATROPIUM-ALBUTEROL 3 ML NEB INHALATION SCH (14:50)
[2023-09-09] MEDS: GABAPENTIN 300 MG CAP PO SCH (15:26)
[2023-09-09] MEDS: HYDROcodone/APAP 7.5-325MG 1 EACH TAB PO SCH (15:26)
[2023-09-09] MEDS: MAGNESIUM OXIDE 400 MG TAB PO SCH (19:12)
[2023-09-09] MEDS: ATORVASTATIN 40 MG TAB PO SCH (19:12)
[2023-09-09] MEDS: PANTOPRAZOLE 40 MG TABLET PO SCH (19:12)
[2023-09-09] MEDS: methylPREDNISolone SOD SUCCI 125 MG/2 ML VIAL IV SCH (19:13)
[2023-09-09] MEDS: SODIUM POLYSTYRENE SULFONATE 15 GM/60 ML BOTTLE PO STA (20:54)
[2023-09-09] MEDS: buPROPion SR 100 MG TABLET.ER PO SCH (20:55)
[2023-09-09] MEDS: BALSALAZIDE DISODIUM 750 MG CAPSULE PO SCH (20:55)
[2023-09-09] MEDS: ZIPRASIDONE 60 MG CAP PO SCH (20:56)
[2023-09-09] MEDS: PROPRANOLOL 20 MG TAB PO SCH (20:56)
[2023-09-10] MEDS: ZIPRASIDONE 40 MG CAP PO SCH (05:53)
[2023-09-10] MEDS: LEVOTHYROXINE 112 MCG TAB PO SCH (05:54)
[2023-09-10] MEDS: SYMBICORT 80-4.5 MCG INHALER INHALATION SCH (07:24)
[2023-09-10 07:27] LABS: African American GFR (CKD) 74 (>60 ml/min/1.73 sqM); Anion Gap 6 mmol/L; Blood Urea Nitrogen 32 mg/dL (7-17); Calcium 9.3 mg/dL (8.4-10.2); Carbon Dioxide 33 mmol/L (22-30); Chloride 100 mmol/L (98-107); Glucose 133 mg/dL (74-99); Non-African American GFR(CKD) 64 (>60 ml/min/1.73 sqM); Sodium 139 mmol/L (137-145)
[2023-09-10 07:51] LABS: Potassium 5.2 mmol/L (3.5-5.1)
[2023-09-10] MEDS ORDERED: ONDANSETRON 4 MG/2 ML VIAL IVP PRN (10:55)
[2023-09-10] MEDS ORDERED: LACTULOSE 20 GM/30 ML CUP PO PRN (10:55)
[2023-09-10] MEDS ORDERED: CALCIUM CARBONATE 500 MG CHEWABLE PO PRN (10:55)
[2023-09-10] MEDS ORDERED: MELATONIN 3 MG TABLET PO PRN (10:55)
[2023-09-10] MEDS: FORMOTEROL FUMARATE 20 MCG/2 ML NEBU INHALATION SCH (11:40)
[2023-09-10] MEDS: BUDESONIDE 1 MG/2 ML NEBU INHALATION SCH (11:40)
[2023-09-10] MEDS: IPRATROPIUM-ALBUTEROL 3 ML NEB INHALATION SCH (11:41)
[2023-09-10] MEDS: ENOXAPARIN 40 MG/0.4 ML SYRINGE SQ SCH (12:02)
--- NOTE | 2023-09-10 12:08 | P.CNPUL ---
History of Present Illness Consult date: 09/10/23 Requesting physician: Francisco Kahn Reason for consult: COPD Chief complaint: Generalized weakness History of present illness: This is a 63-year-old female, known history of severe COPD, normally sees Dr. Acosta, her FEV1 is 60% of the predicted, patient is also known to have history of obstructive sleep apnea, normally on CPAP at a pressure of 12 cm of water. She had previous history of renal cell carcinoma undergone previous right nephrectomy followed by targeted therapy. History of GERD, history of multiple admissions with COPD exacerbation in the past, patient is also known to have history of degenerative joint disease and previous left hip hemiarthroplasty in February 18, 2023. This time the patient came into the ER mostly with symptoms of weakness, chronic shortness of breath, chest x-ray showed bibasilar atelectasis, questionable infiltrates, patient does have chronic shortness of breath, chronic intermittent cough, and intermittent wheezing. Patient was admitted, placed on antibiotics and steroids as well as bronchodilators, placed on BiPAP, and this consult was initiated. Her WBC count is 8.9, hemoglobin 13.1. Her ABG on 45% FiO2 showed a pO2 of 59 and pCO2 of 69 pH of 7.37 remind you patient is on home O2 at 5 L/min chronically basic metabolic profile was normal, renal profile was normal, BNP level was normal thyroid profile was normal and screening for influenza RSV and SARS came back negative. When I evaluated the patient, she was on BiPAP, and she did not want to use it, I transitioned her to 5 L nasal cannula. Patient was mostly complaining of weakness and intermittent episodes of tremors. She basically told me that that is the main reason she came into the hospital, and it was not related to her breathing Review of Systems REVIEW OF SYSTEMS: CONSTITUTIONAL: Weakness, patient feels that her legs are weak and cannot ambulate. EYES: Negative. ENT: Negative. CARDIAC: Negative. PULMONARY: As noted in HPI GI: Negative. GENITOURINARY: History of renal cell carcinoma and previous nephrectomy MUSCULOSKELETAL: History of degenerative joint disease and previous left hip arthroplasty SKIN: Negative. NEUROPSYCH: Negative. ENDOCRINE: Negative. HEMATOLOGIC: Generalized weakness and intermittent episodes of tremors Past Medical History Past Medical History: Asthma, COPD, GERD/Reflux, Hyperlipidemia, Liver Disease, Sleep Apnea/CPAP/BIPAP Additional Past Medical History / Comment(s): hx internal hemorrhoid, kidney CA with right nephrectomy, CPAP use, colitis, IBS History of Any Multi-Drug Resistant Organisms: None Reported Past Surgical History: Hysterectomy Additional Past Surgical History / Comment(s): right nephrectomy 04/11/22 Past Anesthesia/Blood Transfusion Reactions: No Reported Reaction Past Psychological History: Anxiety, Bipolar, Depression Smoking Status: Former smoker Past Alcohol Use History: None Reported Past Drug Use History: None Reported - Past Family History Father Family Medical History: COPD, Hyperlipidemia, Hypertension Mother Family Medical History: COPD, Hyperlipidemia, Hypertension Medications and Allergies Home Medications Medication Instructions Recorded Confirmed Type Ziprasidone [Geodon] 40 mg PO DAILY@0500 02/07/14 09/09/23 History Albuterol Inhaler [Ventolin Hfa 2 puff INHALATION RT-Q6H PRN 11/07/17 09/09/23 History Inhaler] Mesalamine [Delzicol] 800 mg PO TID@0500,1200,1700 11/07/17 09/09/23 History Atorvastatin Calcium [Lipitor] 40 mg PO HS@1700 07/03/22 09/09/23 History Levothyroxine Sodium [Synthroid] 112 mcg PO DAILY@0500 07/03/22 09/09/23 History Ziprasidone [Geodon] 60 mg PO HS@1700 07/03/22 09/09/23 History buPROPion HCL [Wellbutrin SR] 200 mg PO BID@0500,1700 07/03/22 09/09/23 History Fluticasone/Umeclidin/Vilanter 1 puff INHALATION RT-DAILY@0500 01/15/23 09/09/23 History [Trelegy Ellipta 100-62.5-25] Propranolol [Inderal] 20 mg PO BID@0500,1700 03/14/23 09/09/23 History Gabapentin 300 mg PO Q8H 09/09/23 09/09/23 History HYDROcodone/APAP 7.5-325MG [White 1 tab PO Q8H 09/09/23 09/09/23 History 7.5-325] Ipratropium-Albuterol Nebulize 3 ml INHALATION RT-QID 09/09/23 09/09/23 History [Duoneb 0.5 mg-3 mg/3 ml Soln] Magnesium Oxide [Mag-Ox] 400 mg PO BID@0500,1700 09/09/23 09/09/23 History Pantoprazole [Protonix] 40 mg PO BID@0500,1700 09/09/23 09/09/23 History Allergies Allergy/AdvReac Type Severity Reaction Status Date / Time codeine Allergy Rash/Hives Verified 09/09/23 14:13 Penicillins Allergy Rash/Hives Verified 09/09/23 14:13 on feet Sulfa (Sulfonamide Allergy Rash/Hives Verified 09/09/23 14:13 Antibiotics) ibuprofen [From Motrin] AdvReac Nausea & Verified 09/09/23 14:13 Vomiting Physical Exam Vitals: Vital Signs Temp Pulse Pulse Resp BP BP Pulse Ox 09/10/23 11:54 85 09/10/23 11:42 82 09/10/23 08:00 97.7 F 81 16 120/59 93 L 09/10/23 07:36 86 09/10/23 07:26 85 09/10/23 04:13 09/10/23 04:00 98.4 F 78 12 120/71 95 09/10/23 02:00 82 12 09/10/23 00:16 09/10/23 00:00 97.5 F L 82 12 114/68 97 09/09/23 21:00 98 F 102 H 16 125/82 94 L 09/09/23 20:48 09/09/23 20:15 87 09/09/23 20:08 100 25 H 121/104 95 09/09/23 19:56 85 09/09/23 18:00 86 20 105/71 95 09/09/23 17:06 86 20 132/82 97 09/09/23 16:06 90 20 137/78 98 09/09/23 15:06 91 20 130/80 98 09/09/23 14:58 91 09/09/23 14:50 89 09/09/23 14:45 09/09/23 14:06 94 20 120/57 98 09/09/23 13:06 94 18 123/78 98 09/09/23 12:06 100 20 127/74 96 FiO2 09/10/23 11:54 09/10/23 11:42 09/10/23 08:00 09/10/23 07:36 09/10/23 07:26 06/23/24 04:13 50 09/10/23 04:00 50 09/10/23 02:00 09/10/23 00:16 50 09/10/23 00:00 80 09/09/23 21:00 80 09/09/23 20:48 80 09/09/23 20:15 09/09/23 20:08 09/09/23 19:56 80 09/09/23 18:00 09/09/23 17:06 09/09/23 16:06 09/09/23 15:06 09/09/23 14:58 09/09/23 14:50 09/09/23 14:45 80 09/09/23 14:06 09/09/23 13:06 09/09/23 12:06 Intake and Output 09/09/23 09/10/23 09/10/23 22:59 06:59 14:59 Intake Total 120 Output Total 100 Balance -100 120 Intake: Oral 120 Output: Urine 100 Other: Voiding Method External Catheter External Catheter External Catheter # Voids 2 Weight 61.235 kg General: Revealed a 63-year-old female in no distress, on BiPAP. However patient wanted to go back on nasal cannula and this was done during my evaluation. Derm: No rashes Head: atraumatic, normocephalic, symmetric Eyes: EOMI, no lid lag, anicteric sclera, pupils equal round reactive to light ENT: Nose and ears atraumatic Neck: No thyromegaly, supple Mouth: no lip lesion, mucus membranes moist Cardiovascular: S1S2 reg, no murmur, no edema Lungs: Diminished breath sounds at the bases no crackles rhonchi or wheezes Abdominal: soft, nontender to palpation, no guarding, no appreciable organomegaly Ext: no gross muscle atrophy, muscle strength muscle strength 5 out of 5 in all 4 extremities, no contractures Neuro: CN II-XII grossly intact Psych: Alert, oriented, appropriate affect Results - Laboratory Findings CBC and BMP: 09/09/23 11:34 09/10/23 06:40 ABG ABG pH 7.37 (7.35-7.45) 09/09/23 11:34 ABG pCO2 69 mmHg (35-45) H 09/09/23 11:34 ABG pO2 59 mmHg (83-108) L* 09/09/23 11:34 ABG O2 Saturation 90.2 % (94-97) L 09/09/23 11:34 PT/INR, D-dimer PT 10.3 sec (10.0-12.5) 09/09/23 11:34 INR 0.9 (<1.2) 09/09/23 11:34 Abnormal lab findings: Abnormal Labs 09/09/23 09/09/23 09/09/23 11:34 11:34 11:34 MCHC 29.3 L ABG pCO2 69 H ABG pO2 59 L* ABG HCO3 40 H* ABG Total CO2 42 H ABG O2 Saturation 90.2 L Potassium 5.5 H Carbon Dioxide 36 H BUN 33 H Creatinine 1.19 H Glucose 111 H AST 47 H ALT 63 H Alkaline Phosphatase 170 H 09/10/23 06:40 MCHC ABG pCO2 ABG pO2 ABG HCO3 ABG Total CO2 ABG O2 Saturation Potassium 5.2 H Carbon Dioxide 33 H BUN 32 H Creatinine Glucose 133 H AST ALT Alkaline Phosphatase - Diagnostic Findings Chest x-ray: image reviewed (Chest x-ray showed mostly bibasilar atelectasis, underlying pneumonia is felt to be less likely but not entirely ruled out) Assessment and Plan Assessment: Impression: Chronic hypoxic respiratory failure Chronic hypercapnic respiratory failure Severe COPD FEV1 of 60% Obstructive sleep apnea syndrome with apnea-hypopnea index of 16, patient is normally on CPAP with pressure of 12 History of pulmonary nodule, being followed on outpatient basis by Dr. Acosta 14 x 8 mm subpleural nodule in the superior segment of the left lower lobe History of renal cell carcinoma previous nephrectomy History of L1 compression fracture and chronic back pain Hypothyroidism Lower extremities weakness, needs further evaluation and possibly evaluate CT of the lumbosacral spine. Recommendation: Continue O2 via nasal cannula and intermittently use CPAP, patient can bring her own from home Continue present bronchodilators Continue empiric antibiotics and check procalcitonin level and decide on a ntibiotics Continue steroids. Consider CT of the lumbosacral spine to evaluate her lower extremities weakness Continue DuoNeb updrafts 4 times daily and as needed Titrate FiO2 accordingly Will continue to follow Time with Patient: Greater than 30
[2023-09-10] MEDS: methylPREDNISolone SOD SUCCI 125 MG/2 ML VIAL IV SCH (15:57)
--- NOTE | 2023-09-10 17:35 | P.HPIM ---
History of Present Illness H&P Date: 09/10/23 Chief Complaint: Short of breath Pleasant 63-year-old patient who follows with visiting physicians Dr. John. At home on oxygen 5 L. Patient became increasingly short of breath for last 2 days. No fever no chills. Having some sputum production. Bowels are okay. No edema. Had couple of falls in the last 2 days for weakness. Knees feel weak. Overnight was put on BiPAP. Review of systems: GEN.: Tired EYES: None HEENT: None NECK: None RESPIRATORY: [As above CARDIOVASCULAR: None GASTROINTESTINAL: None GENITOURINARY: None MUSCULOSKELETAL: Weakness in the legs and knee joint pain LYMPHATICS: None HEMATOLOGICAL: None PSYCHIATRY: None NEUROLOGICAL: Uses a walker Social history: Lives alone. Does use a walker. Stopped smoking a year ago. Smoked a pack a day for close to 50 years. Physical examination: VITAL SIGNS: 98.4, 104, 24, 127 x 80, 89% on 6 L on presentation GENERAL: [BMI 24.7, reclining in bed a bit short of breath. EYES: Pupils equal. Conjunctiva rosa l. HEENT: External appearance of nose and ears normal, oral cavity grossly normal. NECK: JVD not raised; masses not palpable. HEART: First and second heart sounds are normal; no edema. LUNGS: Respiratory rate increased, coarse crackles in the bases with wheezing. ABDOMEN: Soft, nontender, liver spleen not palpable, no masses palpable. PSYCH: Alert and oriented x3; mood and affect rosa l. MUSCULOSKELETAL:No Clubbing/cyanosis;muscles-grossly intact NEUROLOGICAL: Cranial nerves grossly intact; no facial asymmetry, power and sensation grossly intact. LYMPHATICS: No lymph nodes palpable in the axilla and neck INVESTIGATIONS, reviewed in the clinical context: September 09: Potassium 5.2 creatinine 0.95 September 08: White count 8.9 hemoglobin 13.1 platelets 181 ABG pH 7.37, pCO2 69, pO2 59 potassium 5.5 BUN 33 creatinine 1.19 Influenza type A, type B, RSV, COVID-19: Not detected EKG tracing personally reviewed by me-sinus tachycardia. Chest x-ray film personally reviewed by me-possible basilar infiltrate/atelectasis Assessment and plan: -Acute severe COPD exacerbation in ex-smoker DuoNeb every 4. Nebulized Pulmicort Perforomist. IV Solu-Medrol -Acute hypoxic respiratory failure from COPD exacerbation Patient required BiPAP overnight -Chronic hypoxic respiratory failure underlying COPD Uses 5 L of oxygen at home -Hypothyroid Synthroid 112 mcg a day -GERD Protonix 40 mg twice daily -Obstructive sleep apnea uses CPAP -Right nephrectomy for a prior kidney cancer -IBS Mesalamine -Bipolar disorder Wellbutrin SR, Geodon -Chronic gait dysfunction uses a walker at baseline -Full code Care was discussed with the patient. Pulmonary following. Past Medical History Past Medical History: Asthma, COPD, GERD/Reflux, Hyperlipidemia, Liver Disease, Sleep Apnea/CPAP/BIPAP Additional Past Medical History / Comment(s): hx internal hemorrhoid, kidney CA with right nephrectomy, CPAP use, colitis, IBS History of Any Multi-Drug Resistant Organisms: None Reported Past Surgical History: Hysterectomy Additional Past Surgical History / Comment(s): right nephrectomy 04/11/22 Past Anesthesia/Blood Transfusion Reactions: No Reported Reaction Past Psychological History: Anxiety, Bipolar, Depression Smoking Status: Former smoker Past Alcohol Use History: None Reported Past Drug Use History: None Reported - Past Family History Father Family Medical History: COPD, Hyperlipidemia, Hypertension Mother Family Medical History: COPD, Hyperlipidemia, Hypertension Medications and Allergies Home Medications Medication Instructions Recorded Confirmed Type Ziprasidone [Geodon] 40 mg PO DAILY@0500 02/07/14 09/09/23 History Albuterol Inhaler [Ventolin Hfa 2 puff INHALATION RT-Q6H PRN 11/07/17 09/09/23 History Inhaler] Mesalamine [Delzicol] 800 mg PO TID@0500,1200,1700 11/07/17 09/09/23 History Atorvastatin Calcium [Lipitor] 40 mg PO HS@1700 07/03/22 09/09/23 History Levothyroxine Sodium [Synthroid] 112 mcg PO DAILY@0500 07/03/22 09/09/23 History Ziprasidone [Geodon] 60 mg PO HS@1700 07/03/22 09/09/23 History buPROPion HCL [Wellbutrin SR] 200 mg PO BID@0500,1700 07/03/22 09/09/23 History Fluticasone/Umeclidin/Vilanter 1 puff INHALATION RT-DAILY@0500 01/15/23 09/09/23 History [Trelegy Ellipta 100-62.5-25] Propranolol [Inderal] 20 mg PO BID@0500,1700 03/14/23 09/09/23 History Gabapentin 300 mg PO Q8H 09/09/23 09/09/23 History HYDROcodone/APAP 7.5-325MG [[place] 1 tab PO Q8H 09/09/23 09/09/23 History 7.5-325] Ipratropium-Albuterol Nebulize 3 ml INHALATION RT-QID 09/09/23 09/09/23 History [Duoneb 0.5 mg-3 mg/3 ml Soln] Magnesium Oxide [Mag-Ox] 400 mg PO BID@0500,1700 09/09/23 09/09/23 History Pantoprazole [Protonix] 40 mg PO BID@0500,1700 09/09/23 09/09/23 History Allergies Allergy/AdvReac Type Severity Reaction Status Date / Time codeine Allergy Rash/Hives Verified 09/09/23 14:13 Penicillins Allergy Rash/Hives Verified 09/09/23 14:13 on feet Sulfa (Sulfonamide Allergy Rash/Hives Verified 09/09/23 14:13 Antibiotics) ibuprofen [From Motrin] AdvReac Nausea & Verified 09/09/23 14:13 Vomiting Physical Exam Vitals: Vital Signs Temp Pulse Pulse Resp BP BP Pulse Ox 09/10/23 08:00 97.7 F 81 16 120/59 93 L 09/10/23 07:36 86 09/10/23 07:26 85 09/10/23 04:13 09/10/23 04:00 98.4 F 78 12 120/71 95 09/10/23 02:00 82 12 09/10/23 00:16 09/10/23 00:00 97.5 F L 82 12 114/68 97 09/09/23 21:00 98 F 102 H 16 125/82 94 L 09/09/23 20:48 09/09/23 20:15 87 09/09/23 20:08 100 25 H 121/104 95 09/09/23 19:56 85 09/09/23 18:00 86 20 105/71 95 09/09/23 17:06 86 20 132/82 97 09/09/23 16:06 90 20 137/78 98 09/09/23 15:06 91 20 130/80 98 09/09/23 14:58 91 09/09/23 14:50 89 09/09/23 14:45 09/09/23 14:06 94 20 120/57 98 09/09/23 13:06 94 18 123/78 98 09/09/23 12:06 100 20 127/74 96 09/09/23 11:58 98 09/09/23 11:46 99 24 09/09/23 11:04 98.4 F 104 H 16 127/80 89 L FiO2 09/10/23 08:00 09/10/23 07:36 09/10/23 07:26 09/10/23 04:13 50 09/10/23 04:00 50 09/10/23 02:00 09/10/23 00:16 50 09/10/23 00:00 80 09/09/23 21:00 80 09/09/23 20:48 80 09/09/23 20:15 09/09/23 20:08 09/09/23 19:56 80 09/09/23 18:00 09/09/23 17:06 09/09/23 16:06 09/09/23 15:06 09/09/23 14:58 09/09/23 14:50 09/09/23 14:45 80 09/09/23 14:06 09/09/23 13:06 09/09/23 12:06 09/09/23 11:58 09/09/23 11:46 100 09/09/23 11:04 Intake and Output 09/09/23 09/10/23 09/10/23 22:59 06:59 14:59 Output Total 100 Balance -100 Output: Urine 100 Other: Voiding Method External Catheter External Catheter # Voids 2 Weight 61.235 kg Results CBC & Chem 7: 09/09/23 11:34 09/10/23 06:40 Labs: Abnormal Lab Results - Last 24 Hours (Table) 09/09/23 09/09/23 09/09/23 Range/Units 11:34 11:34 11:34 MCHC 29.3 L (31.0-37.0) g/dL ABG pCO2 69 H (35-45) mmHg ABG pO2 59 L* (83-108) mmHg ABG HCO3 40 H* (21-25) mmol/L ABG Total CO2 42 H (19-24) mmol/L ABG O2 Saturation 90.2 L (94-97) % Potassium 5.5 H (3.5-5.1) mmol/L Carbon Dioxide 36 H (22-30) mmol/L BUN 33 H (7-17) mg/dL Creatinine 1.19 H (0.52-1.04) mg/dL Glucose 111 H (74-99) mg/dL AST 47 H (14-36) U/L ALT 63 H (4-34) U/L Alkaline Phosphatase 170 H (38-126) U/L // Range/Units 06:40 MCHC (31.0-37.0) g/dL ABG pCO2 (35-45) mmHg ABG pO2 (83-108) mmHg ABG HCO3 (21-25) mmol/L ABG Total CO2 (19-24) mmol/L ABG O2 Saturation (94-97) % Potassium 5.2 H (3.5-5.1) mmol/L Carbon Dioxide 33 H (22-30) mmol/L BUN 32 H (7-17) mg/dL Creatinine (0.52-1.04) mg/dL Glucose 133 H (74-99) mg/dL AST (14-36) U/L ALT (4-34) U/L Alkaline Phosphatase (38-126) U/L Thrombosis Risk Factor Assmnt - Choose All That Apply Any of the Below Risk Factors Present?: Yes Each Factor Represents 1 point: Abnormal pulmonary function (COPD), Serious lung disease incl. pneumonia (< 1month) Other Risk Factors: Yes Each Risk Factor Represents 2 Points: Age 61-74 years Other congenital or acquired thrombophilia - If yes, enter type in comment: No Thrombosis Risk Factor Assessment Total Risk Factor Score: 4 Thrombosis Risk Factor Assessment Level: Moderate Risk
--- NOTE | 2023-09-10 19:45 | XR ---
EXAMINATION TYPE: XR lumbar spine 2 or 3V DATE OF EXAM: 09/10/2023 7:16 PM CLINICAL INDICATION:Female, 63 years old with history of Lower extremity weakness; [facility] COMPARISON: 06/07/2023 TECHNIQUE: XR lumbar spine 2 or 3V - Frontal, lateral and coned in L5-S1 lateral views of the spine. FINDINGS: No evidence of any acute osseous pathology. No evidence of loss of vertebral body height i s seen. There is normal alignment of the lumbar vertebral bodies. Scattered disc space narrowing. Mul tilevel marginal osteophyte formation throughout the visualized spine. There is facet joint arthropat hy throughout the spine. Scattered at least moderate neural foraminal stenosis at L5-S1. Atherosclero sis of the arterial vasculature. IMPRESSION: 1. Compression deformity of the L1 vertebral body similar to 06/07/2023. No acute fracture definitivel y visualized. 2. Moderate multilevel disc degeneration.
[2023-09-10] MEDS ORDERED: SYMBICORT 160-4.5 MCG INHALER INHALATION SCH (20:00)
--- NOTE | 2023-09-11 12:02 | CT ---
EXAMINATION TYPE: CT thor lumbar spine wo con CT DLP: 954.6 mGycm, Automated exposure control for dose reduction was used. DATE OF EXAM: 09/11/2023 9:18 AM CLINICAL INDICATION:Female, 63 years old with history of Lower extremity weakness; Lower extremity we akness COMPARISON: 06/07/2023, 03/28/2023. TECHNIQUE: Axial images of the thoracic and lumbar spine were obtained without contrast. Coronal and sagittal reformats were performed. 3-D reformats were created on a separate workstation and submitted for review. CT Contrast: Contrast used: mL of , none. Oral contrast used: none. FINDINGS: Alignment: There are 5 lumbar type vertebral bodies within normal alignment. Bone: Multilevel degeneration changes throughout the spine worse in the lower thoracic and upper lumb ar spine. There is stable T10, T11, L1, L3 and L4 vertebral body compression deformities. The thoracic vertebral bodies have preserved heights and alignment. Intervertebral discs and osseou s structures have normal appearance. Facet joint arthropathy with moderate bilateral T9-T10 and T10- T11 neural foraminal stenosis. No Evidence for significant spinal canal or neural foraminal stenosis within the lumbar spine. No evidence for fracture. Scattered degeneration within the lumbar spine wit h osteophyte formation disc space narrowing. Other: Consolidation changes in the bilateral lower lobes with bronchiectasis. Atherosclerosis of the arterial vasculature. A biliary stent is present. Inferior tip terminating in the duodenum. Left edmar al cyst. Multiple gallstones in the gallbladder lumen. IMPRESSION: 1. No acute fractures definitively visualized. Multilevel compression deformities with stable appear ance of T10, T11, L1, L3 and L4 vertebral body compression deformities. 2. Moderate multilevel degeneration changes throughout the spine with osteophyte formation and facet joint arthropathy. No foraminal stenosis worse at T9-T10 with moderate bilateral and T10-T11 with mo derate bilateral stenosis. 3. Within the limitations exam no evidence for significant spinal canal stenosis within the thorax o r lumbar spine. 4. Chronic consolidation with bronchiectasis in the lower lungs. 5. Cholelithiasis. 6. Biliary stent inferior tip terminating in the duodenum.
--- NOTE | 2023-09-11 12:32 | P.CNOR ---
History of Present Illness - [facility] Consult date: 09/11/23 Requesting physician: Francisco Kahn Consult reason: other (Weakness of the lower extremities) History of present illness: History of Presenting Illness Patient is a pleasant 63-year-old female who presented to the ER with concerns for generalized weakness. Patient has been admitted to Dr. Kahn for respiratory failure and COPD. Patient is currently on BiPap with O2 sat at 93%. Our services has been consulted due to bilateral lower extremity weakness. Thong maddox does report that she has had an increase of low back pain and has had x4 falls on 09/09/23. She states she feels as if her knees just give out. She denies any significant injuries. Patient denies hitting her head or having LOC. She states she does live alone and does not use any assistive devices. She denies any numbness or tingling to her lower extremities. Patient does have a medical history of Asthma, COPD, GERD/Reflux, Hyperlipidemia, Liver Disease, Sleep Apnea/CPAP/BIPAP, Colitis, and kidney cancer with right nephrectomy. Patient denies any orthopedic history at this time. X-ray of the lumbar spine was taken on 09/10/2023 and demonstrates compression deformity of the L1 vertebral body that is similar to the imaging taken on 06/07/2023. No acute fractures definitively visualized. There is also moderate multilevel disc degeneration. This imaging also demonstrates T10, T11, L3, and L4 compression fractures. Review of Systems Pertinent positives and negatives as discussed in HPI, a complete review of systems was performed and all other systems are negative. Physical Examination General: The patient is awake and alert, in no acute distress Skin: Skin is warm and dry with no obvious rashes or lesions. Eye: Pupils are equal, round and reactive to light, extra-ocular movements are intact; there is normal conjunctiva bilaterally. Neck: The neck is supple, there is no tenderness and ROM intact. Cardiovascular: There is a regular rate and rhythm. No murmur, rub or gallop is appreciated. Respiratory: Gastrointestinal: Soft, non-distended, non-tender abdomen. Back: There is mild tenderness to palpation in the midline lumbar region. There is no obvious deformity. Musculoskeletal: ROM limited secondary to pain. Right: Shoulder abduction 5/5, elbow flexors 5/5, wrist dorsiflexors 5/5. finger abductor 5/5, city wellness coordinator 5/5, hip flexor 5/5, knee flexor 5/5, ankle dorsiflexor 5/5, ankle plantarflexion 5/5 and extensor hallucis 5/5. Left: Shoulder abduction 5/5, elbow flexors 5/5, wrist dorsiflexors 5/5. finger abductor 5/5, city wellness coordinator 5/5, hip flexor 5/5, knee flexor 5/5, ankle dorsiflexor 5/5, ankle plantarflexion 5/5 and extensor hallucis 5/5. Neurological: CN 2-12 intact. There are no obvious motor or sensory deficits. Movement and coordination equal and intact. Sensory exam to light touch intact C5-T1 and intact from L2-S1. Reflexes 2/4 in bilateral upper and lower extremities. Negative Hoffmans, babinski, and clonus signs. Psychiatric: Cooperative, appropriate mood & affect, normal judgment. Assessment and Plan Frequent falls T10, T11, L1, L3, and L4 compression fractures Bilateral lower extremity weakness Multiple complex comorbidities At this time we have ordered MRI of the thoracic and lumbar spine for further evaluation. 2. Appreciate consult 3. Pain management -adequate at this time 6. PT/OT - weightbearing as tolerated with a walker. I reviewed and discussed this case with my attending Dr. Schmidt, whom has reviewed this chart and films and is in agreement with assessment and plan of care as outlined above. I have personally seen and examined the patient, performed the documentation and the assessment and plan as written. Number of minutes spent on the visit: 20m. Past Medical History Past Medical History: Asthma, COPD, GERD/Reflux, Hyperlipidemia, Liver Disease, Sleep Apnea/CPAP/BIPAP Additional Past Medical History / Comment(s): hx internal hemorrhoid, kidney CA with right nephrectomy, CPAP use, colitis, IBS History of Any Multi-Drug Resistant Organisms: None Reported Past Surgical History: Hysterectomy Additional Past Surgical History / Comment(s): right nephrectomy 04/11/22 Past Anesthesia/Blood Transfusion Reactions: No Reported Reaction Past Psychological History: Anxiety, Bipolar, Depression Smoking Status: Former smoker Past Alcohol Use History: None Reported Past Drug Use History: None Reported - Past Family History Father Family Medical History: COPD, Hyperlipidemia, Hypertension Mother Family Medical History: COPD, Hyperlipidemia, Hypertension Medications and Allergies Home Medications Medication Instructions Recorded Confirmed Type Ziprasidone [Geodon] 40 mg PO DAILY@0500 02/07/14 09/09/23 History Albuterol Inhaler [Ventolin Hfa 2 puff INHALATION RT-Q6H PRN 11/07/17 09/09/23 History Inhaler] Mesalamine [Delzicol] 800 mg PO TID@0500,1200,1700 11/07/17 09/09/23 History Atorvastatin Calcium [Lipitor] 40 mg PO HS@1700 07/03/22 09/09/23 History Levothyroxine Sodium [Synthroid] 112 mcg PO DAILY@0500 07/03/22 09/09/23 History Ziprasidone [Geodon] 60 mg PO HS@1700 07/03/22 09/09/23 History buPROPion HCL [Wellbutrin SR] 200 mg PO BID@0500,1700 07/03/22 09/09/23 History Fluticasone/Umeclidin/Vilanter 1 puff INHALATION RT-DAILY@0500 01/15/23 09/09/23 History [Trelegy Ellipta 100-62.5-25] Propranolol [Inderal] 20 mg PO BID@0500,1700 03/14/23 09/09/23 History Gabapentin 300 mg PO Q8H 09/09/23 09/09/23 History HYDROcodone/APAP 7.5-325MG [[place] 1 tab PO Q8H 09/09/23 09/09/23 History 7.5-325] Ipratropium-Albuterol Nebulize 3 ml INHALATION RT-QID 09/09/23 09/09/23 History [Duoneb 0.5 mg-3 mg/3 ml Soln] Magnesium Oxide [Mag-Ox] 400 mg PO BID@0500,1700 09/09/23 09/09/23 History Pantoprazole [Protonix] 40 mg PO BID@0500,1700 09/09/23 09/09/23 History Allergies Allergy/AdvReac Type Severity Reaction Status Date / Time codeine Allergy Rash/Hives Verified 09/09/23 14:13 Penicillins Allergy Rash/Hives Verified 09/09/23 14:13 on feet Sulfa (Sulfonamide Allergy Rash/Hives Verified 09/09/23 14:13 Antibiotics) ibuprofen [From Motrin] AdvReac Nausea & Verified 09/09/23 14:13 Vomiting Results - Labs Labs: Microbiology - Last 24 Hours (Table) 09/09/23 13:45 Blood Culture Gram Stain - Preliminary Blood Blood Culture - Preliminary Molecular ID 09/09/23 14:00 Blood Culture Gram Stain - Preliminary Blood H & H 09/09/23 Range/Units 11:34 Hgb 13.1 (11.4-16.0) gm/dL Hct 44.7 (34.0-46.0) % Coagulation 09/09/23 Range/Units 11:34 INR 0.9 (<1.2) Result Diagrams: 09/09/23 11:34 09/10/23 06:40
--- NOTE | 2023-09-11 12:41 | CT ---
EXAMINATION TYPE: CT brain wo con DATE OF EXAM: 09/11/2023 COMPARISON: 08/12/2016 HISTORY: 63-year-old female confusion, AMS, slurred speech TECHNIQUE: Examination was done in axial plane without intravenous contrast. Coronal and sagittal r econstructions performed. CT DLP: 1186.4 mGycm Automated exposure control for dose reduction was used. FINDINGS: There is no evidence of acute intracranial hemorrhage, acute ischemic changes, mass, mass-effect, or extra-axial fluid collection. There is no effacement of cerebral sulci or basal subarachnoid cister ns. There is no hydrocephalus. Asymmetrically larger right lateral ventricle is unchanged compatibl e with anatomic variation. There is no midline shift. Keys-white matter distinction is preserved. White matter hypodensities right centrum semiovale appear new from 2017. Trace mucosal thickening ethmoid air cells. Remainder of the paranasal sinuses and mastoid air cells well pneumatized. Orbits and globes appear intact. IMPRESSION: No acute intracranial abnormality seen. Development of a few small lacunar infarcts versus prominent perivascular spaces in the right centrum semiovale deep white matter as compared to 2017.
--- NOTE | 2023-09-11 14:59 | P.PN ---
Subjective Progress Note Date: 09/11/23 Principal diagnosis: Shortness of breath. This is a 63-year-old female, known history of severe COPD, normally sees Dr. Acosta, her FEV1 is 60% of the predicted, patient is also known to have history of obstructive sleep apnea, normally on CPAP at a pressure of 12 cm of water. She had previous history of renal cell carcinoma undergone previous right nephrectomy followed by targeted therapy. History of GERD, history of multiple admissions with COPD exacerbation in the past, patient is also known to have history of degenerative joint disease and previous left hip hemiart hroplasty in February 18, 2023. This time the patient came into the ER mostly with symptoms of weakness, chronic shortness of breath, chest x-ray showed bibasilar atelectasis, questionable infiltrates, patient does have chronic shortness of breath, chronic intermittent cough, and intermittent wheezing. Patient was admitted, placed on antibiotics and steroids as well as bronchodilators, placed on BiPAP, and this consult was initiated. Her WBC count is 8.9, hemoglobin 13.1. Her ABG on 45% FiO2 showed a pO2 of 59 and pCO2 of 69 pH of 7.37 remind you patient is on home O2 at 5 L/min chronically basic metabolic profile was normal, renal profile was normal, BNP level was normal thyroid profile was normal and screening for influenza RSV and SARS came back negative. When I evaluated the patient, she was on BiPAP, and she did not want to use it, I transitioned her to 5 L nasal cannula. Patient was mostly complaining of weakness and intermittent episodes of tremors. She basically told me that that is the main reason she came into the hospital, and it was not related to her breathing Progress note dated September 11, 2023. This is a 63-year-old female who sees one of my partners, for her COPD. She has moderate COPD, with an FEV1 that 60% of predicted. The patient also sees that same partner, for underlying sleep apnea syndrome. Currently, the patient is on 5 L nasal cannula. This is what she uses at home. She is not receiving any IV fluids. She does use BiPAP at nighttime, with settings of 12/6, 50%. At home, she has CPAP. The patient request a CT scan of the brain, because she feels like she might be having either a mini stroke, or a CVA. A CT scan of the brain, without contrast is ordered. Blood cultures are positive. She remains on Rocephin. No new labs today. Pain CT shows no acute intracranial abnormalities. Objective - Vital Signs Vital signs: Vital Signs Temp 97.5 F L 09/11/23 08:30 Pulse 80 09/11/23 12:57 Resp 18 09/11/23 11:30 BP 112/56 09/11/23 11:30 Pulse Ox 93 L 09/11/23 08:30 FiO2 50 09/11/23 08:30 Intake & Output 09/10/23 09/11/23 09/11/23 18:59 06:59 18:59 Intake Total 240 110 Output Total 200 425 Balance 40 -425 110 Intake: Oral 240 110 Output: Urine 200 425 Other: Voiding Method External Catheter External Catheter External Catheter # Voids 2 2 # Bowel Movements 1 - Exam No acute distress, oriented 3. Currently, the patient is on 5 L nasal cannula. No conversational dyspnea noted. HEENT examination is grossly unremarkable. Mucous membranes are moist. No oral lesions. Neck supple. Full range of motion. No adenopathy thyromegaly or neck vein distention. Cardiovascular examination reveals regular rhythm rate. S1-S2 normal. No S3 or S4. No discernible murmur noted. Lungs reveal scattered inspiratory and expiratory wheezes and rhonchi. Breath sounds are equal bilaterally but diminished throughout. Abdomen soft bowel sounds are heard. No masses or tenderness. Extremities are intact. No cyanosis clubbing or edema. Skin is without rash or lesion. Neurologic examination is brief but nonfocal. - Labs CBC & Chem 7: 09/09/23 11:34 09/10/23 06:40 Labs: Microbiology - Last 24 Hours (Table) 09/09/23 13:45 Blood Culture Gram Stain - Preliminary Blood Blood Culture - Preliminary Staphylococcus hominis Molecular ID 09/09/23 14:00 Blood Culture Gram Stain - Preliminary Blood Blood Culture - Preliminary Staphylococcus hominis Assessment and Plan Assessment: Acute on chronic hypoxemic and hypercapnic respiratory failure. Chronic hypoxemic respiratory failure, on home O2 at 5 L. Moderate COPD, with an FEV1 that 60% of predicted. Obstructive sleep apnea syndrome, on home CPAP, with a pressure of 12 cm of water. Pulmonary nodule, being followed by Dr. Acosta, left lower lobe, 14 x 8 mm in size. Renal cell carcinoma, with previous nephrectomy. History of L1 compression fraction. Hypothyroidism. Lower extremity weakness. Plan: Plan dated September 11, 2023. The patient continues on 5 L nasal cannula during the daytime. At nighttime, she uses BiPAP, with settings of 12/6, 50%. The CT scan of the brain, that was done without contrast, shows no acute abnormality. She is not receiving any IV fluids. Blood cultures are positive for gram-positive cocci. They have yet to be identified as yet. We will continue to follow and make recommendations along the way. Prognosis is guarded. The patient continues on Rocephin. Time with Patient: Less than 30
--- NOTE | 2023-09-11 15:55 | P.PN ---
Progress Note - Text Progress Note Date: 09/11/23 Chief Complaint: Short of breath Pleasant 63-year-old patient who follows with visiting physicians Dr. John. At home on oxygen 5 L. Patient became increasingly short of breath for last 2 days. No fever no chills. Having some sputum production. Bowels are okay. No edema. Had couple of falls in the last 2 days for weakness. Knees feel weak. Overnight was put on BiPAP. September 10: Some improvement in breathing. Bringing up little sputum sputum. CT scan thoracolumbar spine showing some chronic changes. MRI of the thoracolumbar spine has been ordered patient seen by orthopedics Dr. Schmidt. Patient still short of breath. Used BiPAP overnight Active Medications Acetaminophen (Acetaminophen Tab 325 Mg Tab) 650 mg PO Q4HR PRN PRN Reason: Mild Pain or Fever > 100.5 Hydrocodone Bitart/Acetaminophen (Hydrocodone/Apap 7.5-325mg 1 Each Tab) 1 each PO Q8H [facility] Last Admin: 09/11/23 10:07 Dose: 1 each Albuterol/Ipratropium (Ipratropium-Albuterol 3 Ml Neb) 3 ml INHALATION RT-Q2H PRN PRN Reason: Shortness Of Breath Or Wheezing Albuterol/Ipratropium (Ipratropium-Albuterol 3 Ml Neb) 3 ml INHALATION RT-Q4H [facility] Last Admin: 09/11/23 12:42 Dose: 3 ml Atorvastatin Calcium (Atorvastatin 40 Mg Tab) 40 mg PO HS@1700 [facility] Last Admin: 09/09/23 19:12 Dose: 40 mg Balsalazide (Balsalazide Disodium 750 Mg Capsule) 2,250 mg PO TID@0500,1200,1700 [facility] Last Admin: 09/11/23 13:13 Dose: 2,250 mg Budesonide (Budesonide 1 Mg/2 Ml Nebu) 1 mg INHALATION RT-BID [facility] Last Admin: 09/11/23 07:47 Dose: 1 mg Bupropion HCl (Bupropion Sr 100 Mg Tablet.Er) 200 mg PO BID@0500,1700 [facility] Last Admin: 09/11/23 05:06 Dose: 200 mg Calcium Carbonate/Glycine (Calcium Carbonate 500 Mg Chewable) 1,000 mg PO Q4HR PRN PRN Reason: Dyspepsia Enoxaparin Sodium (Enoxaparin 40 Mg/0.4 Ml Syringe) 40 mg SQ DAILY [facility] Last Admin: 09/11/23 10:08 Dose: 40 mg Formoterol Fumarate (Formoterol Fumarate 20 Mcg/2 Ml Nebu) 20 mcg INHALATION RT-BID [facility] Last Admin: 09/11/23 07:47 Dose: 20 mcg Gabapentin (Gabapentin 300 Mg Cap) 300 mg PO Q8H [facility] Last Admin: 09/11/23 12:34 Dose: Not Given Ceftriaxone Sodium 2 gm/ (Sodium Chloride) 50 mls @ 100 mls/hr IVPB Q24HR [facility] Last Admin: 09/11/23 10:08 Dose: 100 mls/hr Lactulose (Lactulose 20 Gm/30 Ml Cup) 20 gm PO DAILY PRN PRN Reason: Constipation Levothyroxine Sodium (Levothyroxine 112 Mcg Tab) 112 mcg PO DAILY@0500 [facility] Last Admin: 09/11/23 05:04 Dose: 112 mcg Lorazepam (Lorazepam 0.5 Mg Tab) 0.5 mg PO Q6HR PRN PRN Reason: Anxiety Magnesium Oxide (Magnesium Oxide 400 Mg Tab) 400 mg PO BID@0500,1700 [facility] Last Admin: 09/11/23 05:04 Dose: 400 mg Melatonin (Melatonin 3 Mg Tablet) 3 mg PO HS PRN PRN Reason: Insomnia Methylprednisolone Sodium Succinate (Methylprednisolone Sod Succi 125 Mg/2 Ml Vial) 60 mg IV Q8H [facility] Last Admin: 09/11/23 13:13 Dose: 60 mg Naloxone HCl (Naloxone 0.4 Mg/Ml 1 Ml Vial) 0.2 mg IVP Q2M PRN PRN Reason: Opioid Reversal Ondansetron HCl (Ondansetron 4 Mg/2 Ml Vial) 4 mg IVP Q8HR PRN PRN Reason: Nausea And Vomiting Pantoprazole Sodium (Pantoprazole 40 Mg Tablet) 40 mg PO BID@0500,1700 [facility] Last Admin: 09/11/23 05:04 Dose: 40 mg Propranolol HCl (Propranolol 20 Mg Tab) 20 mg PO BID@0500,1700 [facility] Last Admin: 09/11/23 05:04 Dose: 20 mg Ziprasidone (Ziprasidone 60 Mg Cap) 60 mg PO HS@1700 [facility] Last Admin: 09/10/23 19:55 Dose: Not Given Ziprasidone (Ziprasidone 40 Mg Cap) 40 mg PO DAILY@0500 [facility] Last Admin: 09/11/23 05:08 Dose: 40 mg Social history: Lives alone. Does use a walker. Stopped smoking a year ago. Smoked a pack a day for close to 50 years. Physical examination: VITAL SIGNS: 97.5, 89, 18, 112/56, 93% on 5 L GENERAL: Sitting up, some shortness of breath. EYES: Pupils equal. Conjunctiva rosa l. HEENT: External appearance of nose and ears normal, oral cavity grossly normal. NECK: JVD not raised; masses not palpable. HEART: First and second heart sounds are normal; no edema. LUNGS: Respiratory rate increased, some crackles in the bases with wheezing. ABDOMEN: Soft, nontender, liver spleen not palpable, no masses palpable. PSYCH: Alert and oriented x3; mood and affect rosa l. MUSCULOSKELETAL:No Clubbing/cyanosis;muscles-grossly intact NEUROLOGICAL: Cranial nerves grossly intact; no facial asymmetry, power and sensation grossly intact. INVESTIGATIONS, reviewed in the clinical context: CT brain: No acute intracranial abnormality. Few small lacunar infarct versus prominent perivascular space in the right centrum semiovale. Compared to [address] scan: Multiple compression deformities stable T10, T11, L1, L3, L4. Multilevel DJD changes. Gallstones. Biliary stent. September 09: Potassium 5.2 creatinine 0.95 September 08: White count 8.9 hemoglobin 13.1 platelets 181 ABG pH 7.37, pCO2 69, pO2 59 potassium 5.5 BUN 33 creatinine 1.19 Influenza type A, type B, RSV, COVID-19: Not detected EKG tracing personally reviewed by me-sinus tachycardia. Chest x-ray film personally reviewed by me-possible basilar infiltrate/atelectas is Assessment and plan: -Acute severe COPD exacerbation in ex-smoker: Slow to respond DuoNeb every 4. Nebulized Pulmicort Perforomist. IV Solu-Medrol 40 mg every 8 -Acute hypoxic respiratory failure from COPD exacerbation Patient required BiPAP overnight -Chronic hypoxic respiratory failure underlying COPD Uses 5 L of oxygen at home -Hypothyroid Synthroid 112 mcg a day -GERD Protonix 40 mg twice daily -Obstructive sleep apnea uses CPAP -Right nephrectomy for a prior kidney cancer -Bilateral lower extremity weakness with frequent falls Orthopedics Dr. Schmidt following. MRI thoracic lumbar spine ordered -Multiple compression deformities stable T10, T11, L1, L3, L4. Multilevel DJD changes. -Chronic biliary stent -Gallstones, asymptomatic -IBS Mesalamine -Bipolar disorder Wellbutrin SR, Geodon -Chronic gait dysfunction uses a walker at baseline -Full code MRI per Dr. Schmidt. Other medications to continue. Discussed. Past Medical History Past Medical History: Asthma, COPD, GERD/Reflux, Hyperlipidemia, Liver Disease, Sleep Apnea/CPAP/BIPAP Additional Past Medical History / Comment(s): hx internal hemorrhoid, kidney CA with right nephrectomy, CPAP use, colitis, IBS History of Any Multi-Drug Resistant Organisms: None Reported Past Surgical History: Hysterectomy Additional Past Surgical History / Comment(s): right nephrectomy 04/11/22 Past Anesthesia/Blood Transfusion Reactions: No Reported Reaction Past Psychological History: Anxiety, Bipolar, Depression Smoking Status: Former smoker Past Alcohol Use History: None Reported Past Drug Use History: None Reported
[2023-09-11] MEDS: methylPREDNISolone SOD SUCCI 40 MG/ML 1 ML VIAL IV SCH (20:37)
--- NOTE | 2023-09-12 09:31 | CDI ---
Documentation Clarification Form Date: 09/12/2023 From: Lea Lewis Phone: [phone] Admit Date: 09/09/2023 12:54:00 PM Patient Name: Velia Azevedo Visit Number: [id number] Discharge Date: ATTENTION: The Clinical Documentation Specialists (CDI) and [employer] Coding Staff appreciate your assistance in clarifying documentation. Please respond to the clarification below the line at the bottom and electronically sign. The CDI & [employer] Coding staff will review the response and follow-up if needed. Please note: Queries are made part of the Legal Health Record. If you have any questions, please contact the author of this message via ITS. Dr. Francisco Kahn: Conflicting documentation has been found in the medical record. As attending physician, please provide clarification. 09/09 H&P, Assessment and Plan: "Acute severe COPD exacerbation in ex-smoker. Acute hypoxic respiratory failure from COPD exacerbation. Patient required BiPAP overnight. Chronic hypoxic respiratory failure underlying COPD. Uses 5 L of oxygen at home" 09/09 Pulmonary consult, Impression: "Chronic hypoxic respiratory failure. Chronic hypercapnic respiratory failure. Severe COPD FEV1 of 60%." History/Risk Factors: 63-year-old female with a history of asthma, COPD, liver disease, ex-smoker, sleep apnea-uses CPAP who presents with weakness Clinical Indicators: 09/08 Triage VS: 127/80, 98.4, 16, 95, 89% on 6 liters nasal cannula 09/08-09/11 O2 sat range: 89% (09/08)-98% (09/08-on BiPAP)-on BiPAP 09/08-09/09 then intermittently 09/09-09/11 O2 flow rate on nasal cannula at 5 liters- was on 6 liters in ED 09/09 Pulmonary consult, HPI: "When I evaluated the patient, she was on BiPAP, and she did not want to use it, I transitioned her to 5 L nasal cannula. Patient was mostly complaining of weakness and intermittent episodes of tremors. She basically told me that that is the main reason she came into the hospital, and it was not related to her breathing." Treatment: O2 at 5liters nasal cannula and BiPAP intermittently-mostly at night Duoneb 0.5mg/3mg nebulizer once 09/08 then [id number] start 09/09 Solumedrol 60mg [id number] 09/08-09/09 the [id number] 09/09-09/10 Solumedrol 40mg IV given once 09/08 then QID09/08-09/09 then [id number] start 09/10 Rocephin 2gram IV given once 09/08 then [id number] start 09/09 Please clarify which diagnosis is most appropriate: [ + ] COPD in acute exacerbation [ ] COPD not in exacerbation [ ] Other (please specify) [ ] Unable to determine MTDD
[2023-09-12] MEDS ORDERED: guaiFENesin SYRUP 100MG/5ML 200 MG/10 ML CUP PO PRN (09:43)
[2023-09-12 11:43] LABS: Glucose,Whole Blood 99 mg/dL (70-110)
--- NOTE | 2023-09-12 12:50 | P.PN ---
Subjective Progress Note Date: 09/12/23 Principal diagnosis: Shortness of breath. This is a 63-year-old female, known history of severe COPD, normally sees Dr. Acosta, her FEV1 is 60% of the predicted, patient is also known to have history of obstructive sleep apnea, normally on CPAP at a pressure of 12 cm of water. She had previous history of renal cell carcinoma undergone previous right nephrectomy followed by targeted therapy. History of GERD, history of multiple admissions with COPD exacerbation in the past, patient is also known to have history of degenerative joint disease and previous left hip hemiart hroplasty in February 18, 2023. This time the patient came into the ER mostly with symptoms of weakness, chronic shortness of breath, chest x-ray showed bibasilar atelectasis, questionable infiltrates, patient does have chronic shortness of breath, chronic intermittent cough, and intermittent wheezing. Patient was admitted, placed on antibiotics and steroids as well as bronchodilators, placed on BiPAP, and this consult was initiated. Her WBC count is 8.9, hemoglobin 13.1. Her ABG on 45% FiO2 showed a pO2 of 59 and pCO2 of 69 pH of 7.37 remind you patient is on home O2 at 5 L/min chronically basic metabolic profile was normal, renal profile was normal, BNP level was normal thyroid profile was normal and screening for influenza RSV and SARS came back negative. When I evaluated the patient, she was on BiPAP, and she did not want to use it, I transitioned her to 5 L nasal cannula. Patient was mostly complaining of weakness and intermittent episodes of tremors. She basically told me that that is the main reason she came into the hospital, and it was not related to her breathing Progress note dated September 11, 2023. This is a 63-year-old female who sees one of my partners, for her COPD. She has moderate COPD, with an FEV1 that 60% of predicted. The patient also sees that same partner, for underlying sleep apnea syndrome. Currently, the patient is on 5 L nasal cannula. This is what she uses at home. She is not receiving any IV fluids. She does use BiPAP at nighttime, with settings of 12/6, 50%. At home, she has CPAP. The patient request a CT scan of the brain, because she feels like she might be having either a mini stroke, or a CVA. A CT scan of the brain, without contrast is ordered. Blood cultures are positive. She remains on Rocephin. No new labs today. Pain CT shows no acute intracranial abnormalities. Progress note dated September 12, 2023. 63-year-old female seen today in room 363. Currently, she is on 5 L of oxygen by nasal cannula. She is not receiving any IV fluids. The patient did use BiPAP last night, with settings of 12/6, and 50%. Patient continues on Rocephin. Blood cultures were positive for staph hominis. No new labs today other than a glucose of 99. Objective - Vital Signs Vital signs: Vital Signs Temp 97.6 F 09/12/23 08:03 Pulse 80 09/12/23 11:57 Resp 18 09/12/23 11:57 BP 123/76 09/12/23 11:57 Pulse Ox 90 L 09/12/23 11:57 FiO2 50 09/12/23 08:54 Intake & Output 09/11/23 09/12/23 09/12/23 18:59 06:59 18:59 Intake Total 336 238 Output Total 100 Balance 336 -100 238 Intake: Oral 336 238 Output: Urine 100 Other: Voiding Method Bedside Commode Bedside Commode Toilet # Voids 2 1 2 # Bowel Movements 1 - Exam No acute distress, oriented 3. Currently, the patient is on 5 L nasal cannula. No conversational dyspnea noted. HEENT examination is grossly unremarkable. Mucous membranes are moist. No oral lesions. Neck supple. Full range of motion. No adenopathy thyromegaly or neck vein distention. Cardiovascular examination reveals regular rhythm rate. S1-S2 normal. No S3 or S4. No discernible murmur noted. Heart rate 80 bpm. Lungs reveal scattered inspiratory and expiratory wheezes and rhonchi. Breath sounds are equal bilaterally but diminished throughout. Saturations are 90% on 5 L. Abdomen soft bowel sounds are heard. No masses or tenderness. Extremities are intact. No cyanosis clubbing or edema. Skin is without rash or lesion. Neurologic examination is brief but nonfocal. - Labs CBC & Chem 7: 09/09/23 11:34 09/10/23 06:40 Labs: Microbiology - Last 24 Hours (Table) 09/09/23 13:45 Blood Culture Gram Stain - Preliminary Blood Blood Culture - Preliminary Staphylococcus hominis Molecular ID 09/09/23 14:00 Blood Culture Gram Stain - Preliminary Blood Blood Culture - Preliminary Staphylococcus hominis Assessment and Plan Assessment: Acute on chronic hypoxemic and hypercapnic respiratory failure. Chronic hypoxemic respiratory failure, on home O2 at 5 L. Moderate COPD, with an FEV1 that 60% of predicted. Obstructive sleep apnea syndrome, on home CPAP, with a pressure of 12 cm of water. Pulmonary nodule, being followed by Dr. Acosta, left lower lobe, 14 x 8 mm in size. Renal cell carcinoma, with previous nephrectomy. History of L1 compression fraction. Hypothyroidism. Lower extremity weakness. Plan: Plan dated September 11, 2023. The patient continues on 5 L nasal cannula during the daytime. At nighttime, she uses BiPAP, with settings of 12/6, 50%. The CT scan of the brain, that was done without contrast, shows no acute abnormality. She is not receiving any IV fluids. Blood cultures are positive for gram-positive cocci. They have yet to be identified as yet. We will continue to follow and make recommendations along the way. Prognosis is guarded. The patient continues on Rocephin. Plan dated September 12, 2023. The patient is doing better today than yesterday. She still has significant shortness of breath when she gets up from the bed or from the chair, goes to the bathroom. She is currently on 5 L. She did use BiPAP last night, with settings of 12/6, and 50%. She continues on Rocephin. Labs, x-rays, and medications are reviewed. The patient's overall prognosis remains guarded. We will continue to follow the patient, make recommendations along the way. The patient will need to follow-up with Dr. Acosta, after discharge. Time with Patient: Less than 30
[2023-09-12] MEDS ORDERED: VANCOMYCIN IV PER PHARMACY 1 EACH MISC MISCELLANE PRN (15:03)
--- NOTE | 2023-09-12 15:09 | P.PN ---
Progress Note - Text Progress Note Date: 09/12/23 Chief Complaint: Short of breath Pleasant 63-year-old patient who follows with visiting physicians Dr. John. At home on oxygen 5 L. Patient became increasingly short of breath for last 2 days. No fever no chills. Having some sputum production. Bowels are okay. No edema. Had couple of falls in the last 2 days for weakness. Knees feel weak. Overnight was put on BiPAP. September 10: Some improvement in breathing. Bringing up little sputum sputum. CT scan thoracolumbar spine showing some chronic changes. MRI of the thoracolumbar spine has been ordered patient seen by orthopedics Dr. Schmidt. Patient still short of breath. Used BiPAP overnight September 11: Overnight using BiPAP. Still coughing up some phlegm. Short of breath. Tired. Blood cultures growing Staphylococcus hominis. From September 08. Repeat blood cultures ordered. Add IV vancomycin. Consult ID. MRI spine pending Active Medications Acetaminophen (Acetaminophen Tab 325 Mg Tab) 650 mg PO Q4HR PRN PRN Reason: Mild Pain or Fever > 100.5 Hydrocodone Bitart/Acetaminophen (Hydrocodone/Apap 7.5-325mg 1 Each Tab) 1 each PO Q8H [facility] Last Admin: 09/12/23 10:32 Dose: 1 each Albuterol/Ipratropium (Ipratropium-Albuterol 3 Ml Neb) 3 ml INHALATION RT-Q2H PRN PRN Reason: Shortness Of Breath Or Wheezing Albuterol/Ipratropium (Ipratropium-Albuterol 3 Ml Neb) 3 ml INHALATION RT-Q4H [facility] Last Admin: 09/12/23 11:38 Dose: 3 ml Atorvastatin Calcium (Atorvastatin 40 Mg Tab) 40 mg PO HS@1700 [facility] Last Admin: 09/11/23 16:50 Dose: 40 mg Balsalazide (Balsalazide Disodium 750 Mg Capsule) 2,250 mg PO TID@0500,1200,1700 [facility] Last Admin: 09/12/23 12:01 Dose: 2,250 mg Budesonide (Budesonide 1 Mg/2 Ml Nebu) 1 mg INHALATION RT-BID [facility] Last Admin: 09/12/23 08:54 Dose: 1 mg Bupropion HCl (Bupropion Sr 100 Mg Tablet.Er) 200 mg PO BID@0500,1700 [facility] Last Admin: 09/12/23 04:11 Dose: 200 mg Calcium Carbonate/Glycine (Calcium Carbonate 500 Mg Chewable) 1,000 mg PO Q4HR PRN PRN Reason: Dyspepsia Enoxaparin Sodium (Enoxaparin 40 Mg/0.4 Ml Syringe) 40 mg SQ DAILY [facility] Last Admin: 09/12/23 08:08 Dose: 40 mg Formoterol Fumarate (Formoterol Fumarate 20 Mcg/2 Ml Nebu) 20 mcg INHALATION RT-BID [facility] Last Admin: 09/12/23 08:54 Dose: 20 mcg Gabapentin (Gabapentin 300 Mg Cap) 300 mg PO Q8H [facility] Last Admin: 09/12/23 05:51 Dose: Not Given Guaifenesin (Guaifenesin Syrup 100mg/5ml 200 Mg/10 Ml Cup) 200 mg PO Q6HR PRN PRN Reason: Cough Ceftriaxone Sodium 2 gm/ (Sodium Chloride) 50 mls @ 100 mls/hr IVPB Q24HR [facility] Last Admin: 09/12/23 08:08 Dose: 100 mls/hr Lactulose (Lactulose 20 Gm/30 Ml Cup) 20 gm PO DAILY PRN PRN Reason: Constipation Levothyroxine Sodium (Levothyroxine 112 Mcg Tab) 112 mcg PO DAILY@0500 [facility] Last Admin: 09/12/23 04:11 Dose: 112 mcg Lorazepam (Lorazepam 0.5 Mg Tab) 0.5 mg PO Q6HR PRN PRN Reason: Anxiety Magnesium Oxide (Magnesium Oxide 400 Mg Tab) 400 mg PO BID@0500,1700 [facility] Last Admin: 09/12/23 04:11 Dose: 400 mg Melatonin (Melatonin 3 Mg Tablet) 3 mg PO HS PRN PRN Reason: Insomnia Methylprednisolone Sodium Succinate (Methylprednisolone Sod Succi 40 Mg/Ml 1 Ml Vial) 40 mg IV Q8H [facility] Last Admin: 09/12/23 12:01 Dose: 40 mg Miscellaneous Information (Vancomycin Iv Per Pharmacy 1 Each [facility]) 1 each MISCELLANE DIRECTED PRN; Protocol PRN Reason: Per Protocol Naloxone HCl (Naloxone 0.4 Mg/Ml 1 Ml Vial) 0.2 mg IVP Q2M PRN PRN Reason: Opioid Reversal Ondansetron HCl (Ondansetron 4 Mg/2 Ml Vial) 4 mg IVP Q8HR PRN PRN Reason: Nausea And Vomiting Pantoprazole Sodium (Pantoprazole 40 Mg Tablet) 40 mg PO BID@0500,1700 [facility] Last Admin: 09/12/23 04:11 Dose: 40 mg Propranolol HCl (Propranolol 20 Mg Tab) 20 mg PO BID@0500,1700 [facility] Last Admin: 09/12/23 04:11 Dose: 20 mg Ziprasidone (Ziprasidone 60 Mg Cap) 60 mg PO HS@1700 [facility] Last Admin: 09/11/23 16:51 Dose: 60 mg Ziprasidone (Ziprasidone 40 Mg Cap) 40 mg PO DAILY@0500 [facility] Last Admin: 09/12/23 04:11 Dose: 40 mg Social history: Lives alone. Does use a walker. Stopped smoking a year ago. Smoked a pack a day for close to 50 years. Physical examination: VITAL SIGNS: 97.6, 78, 18, 91% 5 L GENERAL: Sitting up, short of breath. EYES: Pupils equal. Conjunctiva rosa l. HEENT: External appearance of nose and ears normal, oral cavity grossly normal. NECK: JVD not raised; masses not palpable. HEART: First and second heart sounds are normal; no edema. LUNGS: Respiratory rate increased, some crackles in the bases with wheezing. ABDOMEN: Soft, nontender, liver spleen not palpable, no masses palpable. PSYCH: Alert and oriented x3; mood and affect rosa l. MUSCULOSKELETAL:No Clubbing/cyanosis;muscles-grossly intact NEUROLOGICAL: Cranial nerves grossly intact; no facial asymmetry, power and sensation grossly intact. INVESTIGATIONS, reviewed in the clinical context: Blood culture [September 08] Staphylococcus hominis CT brain: No acute intracranial abnormality. Few small lacunar infarct versus prominent perivascular space in the right centrum semiovale. Compared to [address] scan: Multiple compression deformities stable T10, T11, L1, L3, L4. Multilevel DJD changes. Gallstones. Biliary stent. September 09: Potassium 5.2 creatinine 0.95 September 08: White count 8.9 hemoglobin 13.1 platelets 181 ABG pH 7.37, pCO2 69, pO2 59 potassium 5.5 BUN 33 creatinine 1.19 Influenza type A, type B, RSV, COVID-19: Not detected EKG tracing personally reviewed by me-sinus tachycardia. Chest x-ray film personally reviewed by me-possible basilar infiltrate/atelectasis Assessment and plan: -Acute severe COPD exacerbation in ex-smoker: Slow to respond DuoNeb every 4. Nebulized Pulmicort Perforomist. IV Solu-Medrol 40 mg every 8 -Acute hypoxic and hypercapnic respiratory failure from COPD exacerbation: Slow to respond Continues to use BiPAP overnight -Probable pneumonia suspect gram-negative organism, POA IV ceftriaxone -Positive blood cultures Staphylococcus hominis x 2 sets Start IV vancomycin. Consult ID -Chronic hypoxic and hypercapnic respiratory failure underlying COPD Uses 5 L of oxygen at home -Hypothyroid Synthroid 112 mcg a day -GERD Protonix 40 mg twice daily -Obstructive sleep apnea uses CPAP -Right nephrectomy for a prior kidney cancer -Bilateral lower extremity weakness with frequent falls Orthopedics Dr. Schmidt following. MRI thoracic lumbar spine ordered -Multiple compression deformities stable T10, T11, L1, L3, L4. Multilevel DJD changes. -Obstructive sleep apnea uses CPAP at home 12 cm water -Chronic biliary stent -Gallstones, asymptomatic -IBS Mesalamine -Bipolar disorder Wellbutrin SR, Geodon -Chronic gait dysfunction uses a walker at baseline -Full code Pending RI. Add vancomycin. Consult ID. Patient is slow to respond Past Medical History Past Medical History: Asthma, COPD, GERD/Reflux, Hyperlipidemia, Liver Disease, Sleep Apnea/CPAP/BIPAP Additional Past Medical History / Comment(s): hx internal hemorrhoid, kidney CA with right nephrectomy, CPAP use, colitis, IBS History of Any Multi-Drug Resistant Organisms: None Reported Past Surgical History: Hysterectomy Additional Past Surgical History / Comment(s): right nephrectomy 04/11/22 Past Anesthesia/Blood Transfusion Reactions: No Reported Reaction Past Psychological History: Anxiety, Bipolar, Depression Smoking Status: Former smoker Past Alcohol Use History: None Reported Past Drug Use History: None Reported
[2023-09-12] MEDS: VANCOMYCIN 1,250 MG in SODIUM CHLORIDE 0.9% 250 ML IVPB SCH (15:26)
[2023-09-12] MEDS: LORazepam 0.5 MG TAB PO PRN (15:26)
--- NOTE | 2023-09-12 22:33 | P.CONS ---
History of Present Illness - Reason for Consult Consult date: 09/12/23 Positive blood culture Requesting physician: Francisco Kahn - Chief Complaint Weakness and shortness of breath x days - History of Present Illness Patient is a 63-year-old female with a past medical history significant for hypertension reflux COPD asthma sleep apnea anxiety bipolar depression former smoker presenting to the hospital 3 days ago for evaluation of generalized weakness. The patient has fallen 4 times at home because of the weakness but no significant injury or any loss of consciousness has been complaining of some shortness of breath and also have a cough bringing up some yellowish-green sputum no hemoptysis, patient denies having any fever or any chills and no fever have been recorded during this hospital stay patient did not have any tachycardia or hypotension she did have hypoxemia with O2 sats of 89% and is currently on a nasal cannula oxygen patient did have a normal white count of 8.9 on admission has not repeated since then given creatinine was mildly elevated repeat creatinine has improved liver isms mildly elevated influenza RSV COVID testing was negative patient did have blood culture positive for Staphylococcus hominis prompting this infectious disease consultation patient did have a chest x-ray bibasilar atelectasis or pneumonia also have a thoracic lumbar spine CT no acute fracture there is multilevel compression deformities stable appearance to T10-T11 L1 and 3 and 4 Review of Systems Positive point and negatives has been mentioned in the HPI, complete review of systems was performed and all other systems are negative Past Medical History Past Medical History: Asthma, COPD, GERD/Reflux, Hyperlipidemia, Liver Disease, Sleep Apnea/CPAP/BIPAP Additional Past Medical History / Comment(s): hx internal hemorrhoid, kidney CA with right nephrectomy, CPAP use, colitis, IBS History of Any Multi-Drug Resistant Organisms: None Reported Past Surgical History: Hysterectomy Additional Past Surgical History / Comment(s): right nephrectomy 04/11/22 Past Anesthesia/Blood Transfusion Reactions: No Reported Reaction Past Psychological History: Anxiety, Bipolar, Depression Smoking Status: Former smoker Past Alcohol Use History: None Reported Past Drug Use History: None Reported - Past Family History Father Family Medical History: COPD, Hyperlipidemia, Hypertension Mother Family Medical History: COPD, Hyperlipidemia, Hypertension Medications and Allergies Home Medications Medication Instructions Recorded Confirmed Type Ziprasidone [Geodon] 40 mg PO DAILY@0500 02/07/14 09/09/23 History Albuterol Inhaler [Ventolin Hfa 2 puff INHALATION RT-Q6H PRN 11/07/17 09/09/23 History Inhaler] Mesalamine [Delzicol] 800 mg PO TID@0500,1200,1700 11/07/17 09/09/23 History Atorvastatin Calcium [Lipitor] 40 mg PO HS@1700 07/03/22 09/09/23 History Levothyroxine Sodium [Synthroid] 112 mcg PO DAILY@0500 07/03/22 09/09/23 History Ziprasidone [Geodon] 60 mg PO HS@1700 07/03/22 09/09/23 History buPROPion HCL [Wellbutrin SR] 200 mg PO BID@0500,1700 07/03/22 09/09/23 History Fluticasone/Umeclidin/Vilanter 1 puff INHALATION RT-DAILY@0500 01/15/23 09/09/23 History [Trelegy Ellipta 100-62.5-25] Propranolol [Inderal] 20 mg PO BID@0500,1700 03/14/23 09/09/23 History Gabapentin 300 mg PO Q8H 09/09/23 09/09/23 History HYDROcodone/APAP 7.5-325MG [Mcgill 1 tab PO Q8H 09/09/23 09/09/23 History 7.5-325] Ipratropium-Albuterol Nebulize 3 ml INHALATION RT-QID 09/09/23 09/09/23 History [Duoneb 0.5 mg-3 mg/3 ml Soln] Magnesium Oxide [Mag-Ox] 400 mg PO BID@0500,1700 09/09/23 09/09/23 History Pantoprazole [Protonix] 40 mg PO BID@0500,1700 09/09/23 09/09/23 History Budesonide 0.5 mg INHALATION BID #60 ml 09/15/23 Rx predniSONE 10 mg PO DAILY #30 tab 09/15/23 Rx Allergies Allergy/AdvReac Type Severity Reaction Status Date / Time codeine Allergy Rash/Hives Verified 09/09/23 14:13 Penicillins Allergy Rash/Hives Verified 09/09/23 14:13 on feet Sulfa (Sulfonamide Allergy Rash/Hives Verified 09/09/23 14:13 Antibiotics) ibuprofen [From Motrin] AdvReac Nausea & Verified 09/09/23 14:13 Vomiting Physical Exam Vitals: Vital Signs Temp Pulse Pulse Resp BP Pulse Ox FiO2 09/12/23 21:17 84 09/12/23 21:12 84 09/12/23 21:11 84 09/12/23 20:59 83 50 09/12/23 20:00 97.5 F L 83 16 127/73 91 L 09/12/23 16:12 83 18 130/80 92 L 09/12/23 15:43 84 09/12/23 15:31 84 09/12/23 15:01 80 18 09/12/23 11:57 80 18 123/76 90 L 09/12/23 11:52 80 09/12/23 11:38 78 91 L 09/12/23 10:05 78 18 09/12/23 09:16 80 09/12/23 09:04 80 09/12/23 08:54 80 50 09/12/23 08:03 97.6 F 78 18 115/63 91 L 09/12/23 04:04 84 09/12/23 04:00 98.1 F 87 20 127/68 91 L 09/12/23 03:53 84 50 09/12/23 00:54 84 09/12/23 00:40 80 09/12/23 00:00 93 20 112/59 93 L 50 Intake and Output 09/12/23 09/12/23 09/12/23 06:59 14:59 22:59 Intake Total 238 240 Output Total 100 Balance -100 238 240 Intake: Oral 238 240 Output: Urine 100 Other: Voiding Method Bedside Commode Toilet Toilet # Voids 2 1 GENERAL DESCRIPTION: Middle-aged female lying in bed, no distress. No tachypnea or accessory muscle of respiration use. HEENT: Shows Pallor , no scleral icterus. Oral mucous membrane is dry. No pharyngeal erythema or thrush NECK: Trachea central, no thyromegaly. LUNGS: Unlabored breathing. Coarse breath sounds bilaterally HEART: S1, S2, regular rate and rhythm. No loud murmur ABDOMEN: Soft, no tenderness , guarding or rigidity, no organomegaly EXTREMITIES: No edema of feet. SKIN: Multiple skin bruises NEUROLOGICAL: The patient is awake, alert, oriented x3, mood and affect normal. Results CBC & Chem 7: 09/09/23 11:34 09/14/23 09:33 Labs: Microbiology - Last 24 Hours (Table) 09/09/23 14:00 Blood Culture Gram Stain - Final Blood Blood Culture - Final Staphylococcus hominis 09/09/23 13:45 Blood Culture Gram Stain - Preliminary Blood Blood Culture - Preliminary Staphylococcus hominis Molecular ID Assessment and Plan (1) Allergy to multiple antibiotics Status: Acute Code(s): Z88.1 - ALLERGY STATUS TO OTHER ANTIBIOTIC AGENTS SNOMED Code(s): 818336840 (2) Positive blood culture Status: Acute Code(s): R78.81 - BACTEREMIA SNOMED Code(s): 074413831 Plan: 1patient with a positive blood culture with Streptococcus hominis which is a coagulase-negative staph and more likely skin contamination as the patient has no fever or elevated white count on presentation the hospital and no obvious focus of infection patient did have a history of compression fracture denies any worsening back pain did have multiple skin bruises no evidence of any cellulitis or joint swelling 2-blood culture repeated document clearance 3-we will check inflammatory markers if elevated recommend further workup for now monitor the patient closely off antibiotic We will follow on clinical condition and cultures to further adjust medication if needed Thank you for this consultation we will follow the patient along with you Dictation was produced using [employer] dictation software. please excuse any grammatical, word or spelling errors. Time with Patient: Greater than 30
--- NOTE | 2023-09-13 09:12 | P.PN ---
Subjective Progress Note Date: 09/13/23 Principal diagnosis: Weakness of the lower extremities Patient seen and examined this morning. Patient is resting comfortably in bed. Patient reports that she has been ambulating with physical therapy in the hallway and has been getting up to the restroom. Patient states she is tolerating activity well and feels steady, although she is nervous about her lower extremities giving out. Informed patient that we are awaiting MRI of the thoracic and lumbar spine to be performed. We will further update plan of care when we have results from tests. Continue to encourage patient to work with therapy as tolerated. Objective - Vital Signs Vital signs: Vital Signs Temp 97.7 F 09/13/23 04:00 Pulse 68 09/13/23 08:07 Resp 18 09/13/23 04:00 BP 129/75 09/13/23 04:00 Pulse Ox 95 09/13/23 04:00 FiO2 50 09/13/23 03:42 Intake & Output 09/12/23 09/13/23 09/13/23 18:59 06:59 18:59 Intake Total 478 118 Balance 478 118 Intake: Oral 478 118 Other: Voiding Method Toilet Toilet # Voids 1 1 - Exam General: The patient is awake and alert, in no acute distress Skin: Skin is warm and dry with no obvious rashes or lesions. Eye: Pupils are equal, round and reactive to light, extra-ocular movements are intact; there is normal conjunctiva bilaterally. Neck: The neck is supple, there is no tenderness and ROM intact. Cardiovascular: There is a regular rate and rhythm. No murmur, rub or gallop is appreciated. Respiratory: Productive cough, shortness of breath with activity. Gastrointestinal: Soft, non-distended, non-tender abdomen. Back: There is mild tenderness to palpation in the midline lumbar region. There is no obvious deformity. Musculoskeletal: ROM limited secondary to pain. Right: Shoulder abduction 5/5, elbow flexors 5/5, wrist dorsiflexors 5/5. finger abductor 5/5, technical sales support specialist 5/5, hip flexor 5/5, knee flexor 5/5, ankle dorsiflexor 5/5, ankle plantarflexion 5/5 and extensor hallucis 5/5. Left: Shoulder abduction 5/5, elbow flexors 5/5, wrist dorsiflexors 5/5. finger abductor 5/5, technical sales support specialist 5/5, hip flexor 5/5, knee flexor 5/5, ankle dorsiflexor 5/5, ankle plantarflexion 5/5 and extensor hallucis 5/5. Neurological: CN 2-12 intact. There are no obvious motor or sensory deficits. Movement and coordination equal and intact. Sensory exam to light touch intact C5-T1 and intact from L2-S1. Reflexes 2/4 in bilateral upper and lower extremities. Negative Hoffmans, babinski, and clonus signs. Psychiatric: Cooperative, appropriate mood & affect, normal judgment. - Labs CBC & Chem 7: 09/09/23 11:34 09/10/23 06:40 Labs: Microbiology - Last 24 Hours (Table) 09/09/23 14:00 Blood Culture Gram Stain - Final Blood Blood Culture - Final Staphylococcus hominis 09/09/23 13:45 Blood Culture Gram Stain - Preliminary Blood Blood Culture - Preliminary Staphylococcus hominis Molecular ID Assessment and Plan Assessment: Frequent falls T10, T11, L1, L3, and L4 compression fractures Bilateral lower extremity weakness Multiple complex comorbidities Plan: Awaiting MRI of the thoracic and lumbar spine for further evaluation. 1. Appreciate consult 2. Pain management -adequate at this time 3. PT/OT - weightbearing as tolerated with a walker. I reviewed and discussed this case with my attending Dr. Schmidt, whom has reviewed this chart and films and is in agreement with assessment and plan of care as outlined above. I have personally seen and examined the patient, performed the documentation and the assessment and plan as written. Number of minutes spent on the visit: 20m.
[2023-09-13 10:48] LABS: African American GFR (CKD) 79 (>60 ml/min/1.73 sqM); Non-African American GFR(CKD) 68 (>60 ml/min/1.73 sqM)
--- NOTE | 2023-09-13 12:16 | P.PN ---
Subjective Progress Note Date: 09/13/23 Principal diagnosis: Shortness of breath. This is a 63-year-old female, known history of severe COPD, normally sees Dr. Acosta, her FEV1 is 60% of the predicted, patient is also known to have history of obstructive sleep apnea, normally on CPAP at a pressure of 12 cm of water. She had previous history of renal cell carcinoma undergone previous right nephrectomy followed by targeted therapy. History of GERD, history of multiple admissions with COPD exacerbation in the past, patient is also known to have history of degenerative joint disease and previous left hip hemiart hroplasty in February 18, 2023. This time the patient came into the ER mostly with symptoms of weakness, chronic shortness of breath, chest x-ray showed bibasilar atelectasis, questionable infiltrates, patient does have chronic shortness of breath, chronic intermittent cough, and intermittent wheezing. Patient was admitted, placed on antibiotics and steroids as well as bronchodilators, placed on BiPAP, and this consult was initiated. Her WBC count is 8.9, hemoglobin 13.1. Her ABG on 45% FiO2 showed a pO2 of 59 and pCO2 of 69 pH of 7.37 remind you patient is on home O2 at 5 L/min chronically basic metabolic profile was normal, renal profile was normal, BNP level was normal thyroid profile was normal and screening for influenza RSV and SARS came back negative. When I evaluated the patient, she was on BiPAP, and she did not want to use it, I transitioned her to 5 L nasal cannula. Patient was mostly complaining of weakness and intermittent episodes of tremors. She basically told me that that is the main reason she came into the hospital, and it was not related to her breathing Progress note dated September 11, 2023. This is a 63-year-old female who sees one of my partners, for her COPD. She has moderate COPD, with an FEV1 that 60% of predicted. The patient also sees that same partner, for underlying sleep apnea syndrome. Currently, the patient is on 5 L nasal cannula. This is what she uses at home. She is not receiving any IV fluids. She does use BiPAP at nighttime, with settings of 12/6, 50%. At home, she has CPAP. The patient request a CT scan of the brain, because she feels like she might be having either a mini stroke, or a CVA. A CT scan of the brain, without contrast is ordered. Blood cultures are positive. She remains on Rocephin. No new labs today. Pain CT shows no acute intracranial abnormalities. Progress note dated September 12, 2023. 63-year-old female seen today in room 363. Currently, she is on 5 L of oxygen by nasal cannula. She is not receiving any IV fluids. The patient did use BiPAP last night, with settings of 12/6, and 50%. Patient continues on Rocephin. Blood cultures were positive for staph hominis. No new labs today other than a glucose of 99. Progress note dated September 13, 2023. 63-year-old female again seen in room 363. The patient's blood cultures are showing evidence of Staphylococcus hominis. Patient's not receiving any IV fluids. She is on nasal oxygen at between 4 to 5 L. She continues on Rocephin and vancomycin. Her Solu-Medrol will be converted to prednisone 40 mg a day. Clinically, she is doing better. She states that she had a significant panic attack last night. Typically at home she takes Xanax. Labs today include a creatinine of 0.90. Objective - Vital Signs Vital signs: Vital Signs Temp 98.5 F 09/13/23 08:30 Pulse 80 09/13/23 11:47 Resp 16 09/13/23 08:30 BP 124/64 09/13/23 08:30 Pulse Ox 93 L 09/13/23 08:30 FiO2 50 09/13/23 03:42 Intake & Output 09/12/23 09/13/23 09/13/23 18:59 06:59 18:59 Intake Total 478 118 Balance 478 118 Intake: Oral 478 118 Other: Voiding Method Toilet Toilet Toilet # Voids 1 1 1 - Exam No acute distress, oriented 3. Currently, the patient is on 5 L nasal cannula. No conversational dyspnea noted. HEENT examination is grossly unremarkable. Mucous membranes are moist. No oral lesions. Neck supple. Full range of motion. No adenopathy thyromegaly or neck vein distention. Cardiovascular examination reveals regular rhythm rate. S1-S2 normal. No S3 or S4. No discernible murmur noted. Heart rate 80 bpm. Lungs reveal scattered inspiratory and expiratory wheezes and rhonchi. Breath sounds are equal bilaterally but diminished throughout. Saturations are 93 % on 5 L. Abdomen soft bowel sounds are heard. No masses or tenderness. Extremities are intact. No cyanosis clubbing or edema. Skin is without rash or lesion. Neurologic examination is brief but nonfocal. - Labs CBC & Chem 7: 09/09/23 11:34 09/13/23 09:53 Labs: Microbiology - Last 24 Hours (Table) 09/09/23 14:00 Blood Culture Gram Stain - Final Blood Blood Culture - Final Staphylococcus hominis 09/09/23 13:45 Blood Culture Gram Stain - Preliminary Blood Blood Culture - Preliminary Staphylococcus hominis Molecular ID Assessment and Plan Assessment: Acute on chronic hypoxemic and hypercapnic respiratory failure. Chronic hypoxemic respiratory failure, on home O2 at 5 L. Moderate COPD, with an FEV1 that 60% of predicted. Obstructive sleep apnea syndrome, on home CPAP, with a pressure of 12 cm of water. Pulmonary nodule, being followed by Dr. Acosta, left lower lobe, 14 x 8 mm in size. Renal cell carcinoma, with previous nephrectomy. History of L1 compression fraction. Hypothyroidism. Lower extremity weakness. Plan: Plan dated September 11, 2023. The patient continues on 5 L nasal cannula during the daytime. At nighttime, she uses BiPAP, with settings of 12/6, 50%. The CT scan of the brain, that was done without contrast, shows no acute abnormality. She is not receiving any IV fluids. Blood cultures are positive for gram-positive cocci. They have yet to be identified as yet. We will continue to follow and make recommendations along the way. Prognosis is guarded. The patient continues on Rocephin. Plan dated September 12, 2023. The patient is doing better today than yesterday. She still has significant shortness of breath when she gets up from the bed or from the chair, goes to the bathroom. She is currently on 5 L. She did use BiPAP last night, with settings of 12/6, and 50%. She continues on Rocephin. Labs, x-rays, and medications are reviewed. The patient's overall prognosis remains guarded. We will continue to follow the patient, make recommendations along the way. The patient will need to follow-up with Dr. Acosta, after discharge. Plan dated September 13, 2023. The patient is doing better. She continues on appropriate therapies. She is on vancomycin and Rocephin as per the primary service. Her oxygen is at 5 L. Saturations are 93%. Her Solu-Medrol was converted to prednisone. Labs, x- rays, and medications are reviewed. She will follow-up with my partner after discharge. The patient continues to improve on a daily basis. She did have a panic attack last night, and mentions that she takes Xanax at home. Time with Patient: Less than 30
--- NOTE | 2023-09-13 17:07 | P.PN ---
Progress Note - Text Progress Note Date: 09/13/23 Chief Complaint: Short of breath Pleasant 63-year-old patient who follows with visiting physicians Dr. John. At home on oxygen 5 L. Patient became increasingly short of breath for last 2 days. No fever no chills. Having some sputum production. Bowels are okay. No edema. Had couple of falls in the last 2 days for weakness. Knees feel weak. Overnight was put on BiPAP. September 10: Some improvement in breathing. Bringing up little sputum sputum. CT scan thoracolumbar spine showing some chronic changes. MRI of the thoracolumbar spine has been ordered patient seen by orthopedics Dr. Schmidt. Patient still short of breath. Used BiPAP overnight September 11: Overnight using BiPAP. Still coughing up some phlegm. Short of breath. Tired. Blood cultures growing Staphylococcus hominis. From September 08. Repeat blood cultures ordered. Add IV vancomycin. Consult ID. MRI spine pending September 12: ID following. Feels the blood cultures coagulase-negative staph contaminant. MRI lumbar spine will be done later today. Dr. Schmidt following. Patient sitting for a chair. Used BiPAP overnight. Bringing up sputum. Remains short of breath. Tired. Pulmonary switch the patient to oral prednisone Active Medications Acetaminophen (Acetaminophen Tab 325 Mg Tab) 650 mg PO Q4HR PRN PRN Reason: Mild Pain or Fever > 100.5 Hydrocodone Bitart/Acetaminophen (Hydrocodone/Apap 7.5-325mg 1 Each Tab) 1 each PO Q8H [facility] Last Admin: 09/13/23 06:05 Dose: 1 each Albuterol/Ipratropium (Ipratropium-Albuterol 3 Ml Neb) 3 ml INHALATION RT-Q2H PRN PRN Reason: Shortness Of Breath Or Wheezing Albuterol/Ipratropium (Ipratropium-Albuterol 3 Ml Neb) 3 ml INHALATION RT-Q4H [facility] Last Admin: 09/13/23 15:20 Dose: 3 ml Atorvastatin Calcium (Atorvastatin 40 Mg Tab) 40 mg PO HS@1700 [facility] Last Admin: 09/12/23 16:17 Dose: 40 mg Balsalazide (Balsalazide Disodium 750 Mg Capsule) 2,250 mg PO TID@0500,1200,1700 [facility] Last Admin: 09/13/23 12:15 Dose: 2,250 mg Budesonide (Budesonide 1 Mg/2 Ml Nebu) 1 mg INHALATION RT-BID [facility] Last Admin: 09/13/23 07:37 Dose: 1 mg Bupropion HCl (Bupropion Sr 100 Mg Tablet.Er) 200 mg PO BID@0500,1700 [facility] Last Admin: 09/13/23 05:08 Dose: 200 mg Calcium Carbonate/Glycine (Calcium Carbonate 500 Mg Chewable) 1,000 mg PO Q4HR PRN PRN Reason: Dyspepsia Enoxaparin Sodium (Enoxaparin 40 Mg/0.4 Ml Syringe) 40 mg SQ DAILY [facility] Last Admin: 09/13/23 08:48 Dose: 40 mg Formoterol Fumarate (Formoterol Fumarate 20 Mcg/2 Ml Nebu) 20 mcg INHALATION RT-BID [facility] Last Admin: 09/13/23 07:37 Dose: 20 mcg Gabapentin (Gabapentin 300 Mg Cap) 300 mg PO Q8H [facility] Last Admin: 09/13/23 15:46 Dose: Not Given Guaifenesin (Guaifenesin Syrup 100mg/5ml 200 Mg/10 Ml Cup) 200 mg PO Q6HR PRN PRN Reason: Cough Ceftriaxone Sodium 2 gm/ (Sodium Chloride) 50 mls @ 100 mls/hr IVPB Q24HR [facility] Last Admin: 09/13/23 08:47 Dose: 100 mls/hr Vancomycin HCl 1,250 mg/ (Sodium Chloride) 250 mls @ 125 mls/hr IVPB Q24HR [facility] Last Admin: 09/13/23 10:53 Dose: 125 mls/hr Lactulose (Lactulose 20 Gm/30 Ml Cup) 20 gm PO DAILY PRN PRN Reason: Constipation Levothyroxine Sodium (Levothyroxine 112 Mcg Tab) 112 mcg PO DAILY@0500 [facility] Last Admin: 09/13/23 05:07 Dose: 112 mcg Lorazepam (Lorazepam 0.5 Mg Tab) 0.5 mg PO Q6HR PRN PRN Reason: Anxiety Last Admin: 09/13/23 13:06 Dose: 0.5 mg Magnesium Oxide (Magnesium Oxide 400 Mg Tab) 400 mg PO BID@0500,1700 [facility] Last Admin: 09/13/23 05:07 Dose: 400 mg Melatonin (Melatonin 3 Mg Tablet) 3 mg PO HS PRN PRN Reason: Insomnia Naloxone HCl (Naloxone 0.4 Mg/Ml 1 Ml Vial) 0.2 mg IVP Q2M PRN PRN Reason: Opioid Reversal Ondansetron HCl (Ondansetron 4 Mg/2 Ml Vial) 4 mg IVP Q8HR PRN PRN Reason: Nausea And Vomiting Pantoprazole Sodium (Pantoprazole 40 Mg Tablet) 40 mg PO BID@0500,1700 [facility] Last Admin: 09/13/23 05:07 Dose: 40 mg Prednisone (Prednisone 20 Mg Tab) 40 mg PO DAILY [facility] Propranolol HCl (Propranolol 20 Mg Tab) 20 mg PO BID@0500,1700 [facility] Last Admin: 09/13/23 05:08 Dose: 20 mg Ziprasidone (Ziprasidone 60 Mg Cap) 60 mg PO HS@1700 [facility] Last Admin: 09/12/23 16:17 Dose: 60 mg Ziprasidone (Ziprasidone 40 Mg Cap) 40 mg PO DAILY@0500 [facility] Last Admin: 09/13/23 05:08 Dose: 40 mg Social history: Lives alone. Does use a walker. Stopped smoking a year ago. Smoked a pack a day for close to 50 years. Physical examination: VITAL SIGNS: 98.5, 59, 16, 124 x 64, 93% on 5 L GENERAL: Sitting up, short of breath. EYES: Pupils equal. Conjunctiva rosa l. HEENT: External appearance of nose and ears normal, oral cavity grossly normal. NECK: JVD not raised; masses not palpable. HEART: First and second heart sounds are normal; no edema. LUNGS: Respiratory rate increased, some crackles in the bases with wheezing. ABDOMEN: Soft, nontender, liver spleen not palpable, no masses palpable. PSYCH: Alert and oriented x3; mood and affect rosa l. MUSCULOSKELETAL:No Clubbing/cyanosis;muscles-grossly intact NEUROLOGICAL: Cranial nerves grossly intact; no facial asymmetry, power and sensation grossly intact. INVESTIGATIONS, reviewed in the clinical context: Blood culture [September 08] Staphylococcus hominis CT brain: No acute intracranial abnormality. Few small lacunar infarct versus prominent perivascular space in the right centrum semiovale. Compared to [address] scan: Multiple compression deformities stable T10, T11, L1, L3, L4. Multilevel DJD changes. Gallstones. Biliary stent. September 09: Potassium 5.2 creatinine 0.95 September 08: White count 8.9 hemoglobin 13.1 platelets 181 ABG pH 7.37, pCO2 69, pO2 59 potassium 5.5 BUN 33 creatinine 1.19 Influenza type A, type B, RSV, COVID-19: Not detected EKG tracing personally reviewed by me-sinus tachycardia. Chest x-ray film personally reviewed by me-possible basilar infiltrate/atelectasis Assessment and plan: -Acute severe COPD exacerbation in ex-smoker: DuoNeb every 4. Nebulized Pulmicort Perforomist. IV Solu-Medrol changed over to oral prednisone -Acute hypoxic and hypercapnic respiratory failure from COPD exacerbation: Continues to use BiPAP overnight -Probable pneumonia suspect gram-negative organism, POA IV ceftriaxone -Positive blood cultures Staphylococcus hominis x 2 sets: Likely contaminant t IV vancomycin. ID following -Chronic hypoxic and hypercapnic respiratory failure underlying COPD Uses 5 L of oxygen at home -Hypothyroid Synthroid 112 mcg a day -GERD Protonix 40 mg twice daily -Obstructive sleep apnea uses CPAP -Right nephrectomy for a prior kidney cancer -Bilateral lower extremity weakness with frequent falls Orthopedics Dr. Schmidt following. MRI thoracic lumbar spine pending -Multiple compression deformities stable T10, T11, L1, L3, L4. Multilevel DJD changes. -Obstructive sleep apnea uses CPAP at home 12 cm water -Chronic biliary stent -Gallstones, asymptomatic -IBS Mesalamine -Bipolar disorder Wellbutrin SR, Geodon -Chronic gait dysfunction uses a walker at baseline -Full code Continue current medication treatment plan. Put on oral prednisone by pulmonary. Pending MRI. Past Medical History Past Medical History: Asthma, COPD, GERD/Reflux, Hyperlipidemia, Liver Disease, Sleep Apnea/CPAP/BIPAP Additional Past Medical History / Comment(s): hx internal hemorrhoid, kidney CA with right nephrectomy, CPAP use, colitis, IBS History of Any Multi-Drug Resistant Organisms: None Reported Past Surgical History: Hysterectomy Additional Past Surgical History / Comment(s): right nephrectomy 04/11/22 Past Anesthesia/Blood Transfusion Reactions: No Reported Reaction Past Psychological History: Anxiety, Bipolar, Depression Smoking Status: Former smoker Past Alcohol Use History: None Reported Past Drug Use History: None Reported
--- NOTE | 2023-09-13 17:56 | P.PN ---
Subjective Progress Note Date: 09/13/23 Principal diagnosis: Reason for follow-up is positive blood culture Patient is a 63-year-old female with a past medical history significant for hypertension reflux COPD asthma sleep apnea anxiety bipolar depression former smoker presenting to the hospital for evaluation generalized weakness patient did have a positive blood culture prompting this consultation. On today's evaluation that is 09/13/2023, Patient is afebrile this morning and denies any chills, patient mention breathing comfortably and is currently on bilateral nasal oxygen, patient denies any chest pain denies any worsening cough or sputum production patient denies any abdominal pain no diarrhea no nausea no vomiting. Patient did have a sed rate of 26 creatinine 0.90 CRP less than 0.5 blood cul ture repeat pending Objective - Vital Signs Vital signs: Vital Signs Temp 98.5 F 09/13/23 08:30 Pulse 80 09/13/23 11:47 Resp 16 09/13/23 08:30 BP 124/64 09/13/23 08:30 Pulse Ox 93 L 09/13/23 08:30 FiO2 50 09/13/23 03:42 Intake & Output 09/12/23 09/13/23 09/13/23 18:59 06:59 18:59 Intake Total 478 340 Balance 478 340 Intake: Oral 478 340 Other: Voiding Method Toilet Toilet Toilet # Voids 1 1 1 # Bowel Movements 1 - Exam GENERAL DESCRIPTION: Middle-aged female lying in bed in no distress RESPIRATORY SYSTEM: Unlabored breathing , coarse breath sounds at bases HEART: S1 S2 regular rate and rhythm , ABDOMEN: Soft , no tenderness EXTREMITIES: No edema feet - Labs CBC & Chem 7: 09/09/23 11:34 09/13/23 09:53 Labs: Microbiology - Last 24 Hours (Table) 09/09/23 13:45 Blood Culture Gram Stain - Preliminary Blood Blood Culture - Preliminary Staphylococcus hominis Anaerobic Gram Positive Cocci Molecular ID 09/09/23 14:00 Blood Culture Gram Stain - Final Blood Blood Culture - Final Staphylococcus hominis Assessment and Plan (1) Positive blood culture Current Visit: Yes Status: Acute Code(s): R78.81 - BACTEREMIA SNOMED Code(s): 574609876 Plan: 1patient with a positive blood culture with Streptococcus hominis which is a coagulase-negative staph and more likely skin contamination as the patient has no fever or elevated white count on presentation the hospital and no obvious focus of infection patient did have a history of compression fracture denies any worsening back pain did have multiple skin bruises no evidence of any cellulitis or joint swelling 2-blood culture has been repeated document clearance 3-patient did have an normal CRP and a sed rate there will go against any active infection at this point hence will monitor the patient closely off antibiotic Dictation was produced using [employer] dictation software. please excuse any grammatical, word or spelling errors. Time with Patient: Less than 30
--- NOTE | 2023-09-13 20:05 | MR ---
EXAMINATION TYPE: MR lumbar spine wo con DATE OF EXAM: 09/13/2023 COMPARISON: None HISTORY: Leg weakness, fracture L1 TECHNIQUE: Multiplanar, multisequence images of the lumbar spine were acquired without IV contrast. Findings: There are multiple insufficiency fractures in the lower thoracic and the lumbar spine including; a mi ld compression of the superior endplate of T10, a moderate compression fracture of T11, moderate to s evere compression fracture of L1, a mild superior endplate compression fracture of L3 and mild superi or endplate compression fracture of L4. There is no significant retropulsion from any of the fracture s. The lumbar thoracic vertebral segments are normal in alignment. There is mild disc space narrowing and circumferential disc bulge at the L4-5 disc. There are no lumbar disc herniations. There is no spinal stenosis of the central canal. There is mild neural foraminal stenosis at the L4-5 level bilaterally and at the L5-S1 level on the left. Conus medullaris cauda equina appear normal.. There is mild facet arthropathy throughout the lumbar spine. Visualized sacrum and SI joints are normal. IMPRESSION: 1. Multiple insufficiency fractures of the lower thoracic spine and within the lumbar spine as descri bed above. There is no significant retropulsion. 2. Mild degenerative disease at the L4-5 disc. No lumbar disc herniation. 3. Mild foraminal stenosis at the L4-5 level bilaterally and at the L5-S1 level on the left. 4. Mild facet arthropathy throughout the lumbar spine.
[2023-09-13] MEDS: IPRATROPIUM-ALBUTEROL 3 ML NEB ONE (23:39)
[2023-09-14] MEDS: predniSONE 20 MG TAB PO SCH (08:24)
[2023-09-14 10:23] LABS: African American GFR (CKD) 79 (>60 ml/min/1.73 sqM); Anion Gap 5 mmol/L; Blood Urea Nitrogen 28 mg/dL (7-17); Calcium 8.4 mg/dL (8.4-10.2); Carbon Dioxide 29 mmol/L (22-30); Chloride 107 mmol/L (98-107); Glucose 100 mg/dL (74-99); Non-African American GFR(CKD) 69 (>60 ml/min/1.73 sqM); Sodium 141 mmol/L (137-145)
--- NOTE | 2023-09-14 12:48 | P.PN ---
Subjective Progress Note Date: 09/14/23 Principal diagnosis: Shortness of breath. This is a 63-year-old female, known history of severe COPD, normally sees Dr. Acosta, her FEV1 is 60% of the predicted, patient is also known to have history of obstructive sleep apnea, normally on CPAP at a pressure of 12 cm of water. She had previous history of renal cell carcinoma undergone previous right nephrectomy followed by targeted therapy. History of GERD, history of multiple admissions with COPD exacerbation in the past, patient is also known to have history of degenerative joint disease and previous left hip hemiart hroplasty in February 18, 2023. This time the patient came into the ER mostly with symptoms of weakness, chronic shortness of breath, chest x-ray showed bibasilar atelectasis, questionable infiltrates, patient does have chronic shortness of breath, chronic intermittent cough, and intermittent wheezing. Patient was admitted, placed on antibiotics and steroids as well as bronchodilators, placed on BiPAP, and this consult was initiated. Her WBC count is 8.9, hemoglobin 13.1. Her ABG on 45% FiO2 showed a pO2 of 59 and pCO2 of 69 pH of 7.37 remind you patient is on home O2 at 5 L/min chronically basic metabolic profile was normal, renal profile was normal, BNP level was normal thyroid profile was normal and screening for influenza RSV and SARS came back negative. When I evaluated the patient, she was on BiPAP, and she did not want to use it, I transitioned her to 5 L nasal cannula. Patient was mostly complaining of weakness and intermittent episodes of tremors. She basically told me that that is the main reason she came into the hospital, and it was not related to her breathing Progress note dated September 11, 2023. This is a 63-year-old female who sees one of my partners, for her COPD. She has moderate COPD, with an FEV1 that 60% of predicted. The patient also sees that same partner, for underlying sleep apnea syndrome. Currently, the patient is on 5 L nasal cannula. This is what she uses at home. She is not receiving any IV fluids. She does use BiPAP at nighttime, with settings of 12/6, 50%. At home, she has CPAP. The patient request a CT scan of the brain, because she feels like she might be having either a mini stroke, or a CVA. A CT scan of the brain, without contrast is ordered. Blood cultures are positive. She remains on Rocephin. No new labs today. Pain CT shows no acute intracranial abnormalities. Progress note dated September 12, 2023. 63-year-old female seen today in room 363. Currently, she is on 5 L of oxygen by nasal cannula. She is not receiving any IV fluids. The patient did use BiPAP last night, with settings of 12/6, and 50%. Patient continues on Rocephin. Blood cultures were positive for staph hominis. No new labs today other than a glucose of 99. Progress note dated September 13, 2023. 63-year-old female again seen in room 363. The patient's blood cultures are showing evidence of Staphylococcus hominis. Patient's not receiving any IV fluids. She is on nasal oxygen at between 4 to 5 L. She continues on Rocephin and vancomycin. Her Solu-Medrol will be converted to prednisone 40 mg a day. Clinically, she is doing better. She states that she had a significant panic attack last night. Typically at home she takes Xanax. Labs today include a creatinine of 0.90. Progress note dated September 14, 2023. The patient is seen today room 363. She continues on oxygen by nasal cannula at 5 L. This is what she uses at home. She is getting saline at 20 cc an hour. She did use BiPAP last night, with settings of 12/6, and 50%. Clinically, she is feeling much better. Current labs include a sodium 141, potassium 3, chlorid es 107, CO2 29, BUN 28, creatinine 0.89. Glucose is 100. Calcium is 8.4. Procalcitonin level is 0.06. Blood cultures are positive for Staphylococcus hominis. Patient is currently on Rocephin and vancomycin. Objective - Vital Signs Vital signs: Vital Signs Temp 97.8 F 09/14/23 11:57 Pulse 81 09/14/23 11:57 Resp 18 09/14/23 11:57 BP 133/80 09/14/23 11:57 Pulse Ox 89 L 09/14/23 11:57 FiO2 50 09/13/23 03:42 Intake & Output 09/13/23 09/14/23 09/14/23 18:59 06:59 18:59 Intake Total 562 120 Balance 562 120 Intake: Oral 562 120 Other: Voiding Method Toilet Toilet Toilet # Voids 1 1 2 # Bowel Movements 1 2 1 - Exam No acute distress, oriented 3. Currently, the patient is on 5 L nasal cannula. No conversational dyspnea noted. HEENT examination is grossly unremarkable. Mucous membranes are moist. No oral lesions. Neck supple. Full range of motion. No adenopathy thyromegaly or neck vein distention. Cardiovascular examination reveals regular rhythm rate. S1-S2 normal. No S3 or S4. No discernible murmur noted. Heart rate 81 bpm. Lungs reveal scattered inspiratory and expiratory wheezes and rhonchi. Breath sounds are equal bilaterally but diminished throughout. Saturations are 93 % on 5 L. Abdomen soft bowel sounds are heard. No masses or tenderness. Extremities are intact. No cyanosis clubbing or edema. Skin is without rash or lesion. Neurologic examination is brief but nonfocal. - Labs CBC & Chem 7: 09/09/23 11:34 09/14/23 09:33 Labs: Abnormal Lab Results - Last 24 Hours (Table) 09/14/23 Range/Units 09:33 Potassium 3.0 L (3.5-5.1) mmol/L BUN 28 H (7-17) mg/dL Glucose 100 H (74-99) mg/dL Microbiology - Last 24 Hours (Table) 09/12/23 15:47 Blood Culture - Preliminary Blood 09/12/23 15:40 Blood Culture - Preliminary Blood 09/09/23 13:45 Blood Culture Gram Stain - Preliminary Blood Blood Culture - Preliminary Staphylococcus hominis Anaerobic Gram Positive Cocci Molecular ID Assessment and Plan Assessment: Acute on chronic hypoxemic and hypercapnic respiratory failure. Chronic hypoxemic respiratory failure, on home O2 at 5 L. Staphylococcus hominis bacteremia. Moderate COPD, with an FEV1 that 60% of predicted. Obstructive sleep apnea syndrome, on home CPAP, with a pressure of 12 cm of water. Pulmonary nodule, being followed by Dr. Acosta, left lower lobe, 14 x 8 mm in size. Renal cell carcinoma, with previous nephrectomy. History of L1 compression fraction. Hypothyroidism. Lower extremity weakness. Plan: Plan dated September 11, 2023. The patient continues on 5 L nasal cannula during the daytime. At nighttime, she uses BiPAP, with settings of 12/6, 50%. The CT scan of the brain, that was done without contrast, shows no acute abnormality. She is not receiving any IV fluids. Blood cultures are positive for gram-positive cocci. They have yet to be identified as yet. We will continue to follow and make recommendations along the way. Prognosis is guarded. The patient continues on Rocephin. Plan dated September 12, 2023. The patient is doing better today than yesterday. She still has significant shortness of breath when she gets up from the bed or from the chair, goes to the bathroom. She is currently on 5 L. She did use BiPAP last night, with settings of 12/6, and 50%. She continues on Rocephin. Labs, x-rays, and medications are reviewed. The patient's overall prognosis remains guarded. We will continue to follow the patient, make recommendations along the way. The patient will need to follow-up with Dr. Acosta, after discharge. Plan dated September 13, 2023. The patient is doing better. She continues on appropriate therapies. She is on vancomycin and Rocephin as per the primary service. Her oxygen is at 5 L. Saturations are 93%. Her Solu-Medrol was converted to prednisone. Labs, x- rays, and medications are reviewed. She will follow-up with my partner after discharge. The patient continues to improve on a daily basis. She did have a panic attack last night, and mentions that she takes Xanax at home. Plan dated September 14, 2023. The patient is currently seen today in room 363. She appears relatively stable. Her breathing is much improved. She continues on oxygen by nasal cannula at 5 L. She did use BiPAP at nighttime. She continues on vancomycin, and Rocephin, as per infectious diseases. Blood cultures were passed of the for Staphylococcus hominis. We will continue to follow make recommendations. She will follow-up with Dr. Acosta in our office, after discharge. Time with Patient: Less than 30
--- NOTE | 2023-09-14 13:17 | P.PN ---
Subjective Progress Note Date: 09/14/23 Principal diagnosis: Recent fall, multiple thoracic and lumbar compression fractures, lower extremity weakness Patient was evaluated today at bedside, she is sitting up in her hospital chair resting. She appears to be in no acute distress. Patient continues to demonstrate discomfort more in the upper thoracic spine. We are still waiting for the thoracic MRI to be done. She did receive the lumbar MRI yesterday evening. She has been up and ambulating with the assistance of a walker and physical therapy. When asked about bracing, patient does have a brace at home that she normally will utilize. This was prescribed by Dr. Fregoso from [facility], she was first evaluated by him back in May and has been following with him, this was brought to our attention today. Currently denies chest pain, shortness of breath, nausea or vomiting, lightheadedness, genital or perineal numbness or tingling, loss of bowel or bladder function Objective - Vital Signs Vital signs: Vital Signs Temp 97.8 F 09/14/23 11:57 Pulse 81 09/14/23 11:57 Resp 18 09/14/23 11:57 BP 133/80 09/14/23 11:57 Pulse Ox 89 L 09/14/23 11:57 FiO2 50 09/13/23 03:42 Intake & Output 09/13/23 09/14/23 09/14/23 18:59 06:59 18:59 Intake Total 562 120 Balance 562 120 Intake: Oral 562 120 Other: Voiding Method Toilet Toilet Toilet # Voids 1 1 2 # Bowel Movements 1 2 1 - Exam Gen: AOx3, NAD VSS stable at this time Integument: No open lesions or sores are visualized throughout the thoracic or lumbar spine, no areas of soft tissue swelling or erythema Palpation: Tenderness with palpation to the upper thoracic paraspinal and midline region ROM: Full range of motion in all major muscle groups of bilateral upper and lower extremities, no focal deficits appreciated Sensory Exam: Senory exam to light touch is intact C5-T1 Senosry exam to light touch is intact L2-S1 Motor: 5/5 strength appreciated in the bilateral upper extremities with shoulder elevation, shoulder abduction, elbow extension, elbow flexion, wrist extension, wrist flexion, speech and hearing director 5/5 strength appreciated to bilateral lower extremities with hip flexion, knee extension, knee flexion, plantarflexion, dorsiflexion, EHL, FHL Reflexes: 2/4 in all UE and LE Negative Juanis's bilaterally Negative Babinski bilaterally Negative clonus bilaterally - Labs CBC & Chem 7: 09/09/23 11:34 09/14/23 09:33 Labs: Abnormal Lab Results - Last 24 Hours (Table) 09/14/23 Range/Units 09:33 Potassium 3.0 L (3.5-5.1) mmol/L BUN 28 H (7-17) mg/dL Glucose 100 H (74-99) mg/dL Microbiology - Last 24 Hours (Table) 09/12/23 15:47 Blood Culture - Preliminary Blood 09/12/23 15:40 Blood Culture - Preliminary Blood 09/09/23 13:45 Blood Culture Gram Stain - Preliminary Blood Blood Culture - Preliminary Staphylococcus hominis Anaerobic Gram Positive Cocci Molecular ID Assessment and Plan Assessment: Frequent falls T10, T11, L1, L3, and L4 compression fractures Lumbar spondylosis Bilateral lower extremity weakness Multiple complex comorbidities Plan: Awaiting thoracic MRI Lumbar MRI demonstrates no significant areas of retropulsion of the compression fractures, this to include any significant areas of central canal stenosis Recommending conservative measures, this to include use of the brace when up and ambulating Pain control, patient states that she was prescribed both [place] and gabapentin from Dr. Fregoso. She states that after she has been on the gabapentin she did notice some tremor-like reflexes, she has not taken it since being in the hospital and feels much better without it. DVT prophylaxis per primary medical service Continue with PT/OT Other medical specialty recommendations appreciated Will continue to follow during hospital stay Time with Patient: Less than 30
--- NOTE | 2023-09-14 15:56 | P.PN ---
Progress Note - Text Progress Note Date: 09/14/23 Chief Complaint: Short of breath Pleasant 63-year-old patient who follows with visiting physicians Dr. John. At home on oxygen 5 L. Patient became increasingly short of breath for last 2 days. No fever no chills. Having some sputum production. Bowels are okay. No edema. Had couple of falls in the last 2 days for weakness. Knees feel weak. Overnight was put on BiPAP. September 10: Some improvement in breathing. Bringing up little sputum sputum. CT scan thoracolumbar spine showing some chronic changes. MRI of the thoracolumbar spine has been ordered patient seen by orthopedics Dr. Schmidt. Patient still short of breath. Used BiPAP overnight September 11: Overnight using BiPAP. Still coughing up some phlegm. Short of breath. Tired. Blood cultures growing Staphylococcus hominis. From September 08. Repeat blood cultures ordered. Add IV vancomycin. Consult ID. MRI spine pending September 12: ID following. Feels the blood cultures coagulase-negative staph contaminant. MRI lumbar spine will be done later today. Dr. Schmidt following. Patient sitting for a chair. Used BiPAP overnight. Bringing up sputum. Remains short of breath. Tired. Pulmonary switch the patient to oral prednisone September 13: Sitting up in a chair. Some shortness of breath. BiPAP was used overnight. Lumbar MRI was reviewed by Dr. Schmidt's team. They are awaiting thoracic MRI. Currently conservative measures to continue. Including brace. Oral intake good. Patient walked 100 feet with rolling walker. Active Medications Acetaminophen (Acetaminophen Tab 325 Mg Tab) 650 mg PO Q4HR PRN PRN Reason: Mild Pain or Fever > 100.5 Hydrocodone Bitart/Acetaminophen (Hydrocodone/Apap 7.5-325mg 1 Each Tab) 1 each PO Q8H [facility] Last Admin: 09/14/23 15:31 Dose: 1 each Albuterol/Ipratropium (Ipratropium-Albuterol 3 Ml Neb) 3 ml INHALATION RT-Q2H PRN PRN Reason: Shortness Of Breath Or Wheezing Albuterol/Ipratropium (Ipratropium-Albuterol 3 Ml Neb) 3 ml INHALATION RT-Q4H [facility] Last Admin: 09/14/23 15:03 Dose: 3 ml Atorvastatin Calcium (Atorvastatin 40 Mg Tab) 40 mg PO HS@1700 [facility] Last Admin: 09/13/23 17:21 Dose: 40 mg Balsalazide (Balsalazide Disodium 750 Mg Capsule) 2,250 mg PO TID@0500,1200,1700 [facility] Last Admin: 09/14/23 11:56 Dose: 2,250 mg Budesonide (Budesonide 1 Mg/2 Ml Nebu) 1 mg INHALATION RT-BID [facility] Last Admin: 09/14/23 07:55 Dose: 1 mg Bupropion HCl (Bupropion Sr 100 Mg Tablet.Er) 200 mg PO BID@0500,1700 [facility] Last Admin: 09/14/23 05:10 Dose: 200 mg Calcium Carbonate/Glycine (Calcium Carbonate 500 Mg Chewable) 1,000 mg PO Q4HR PRN PRN Reason: Dyspepsia Enoxaparin Sodium (Enoxaparin 40 Mg/0.4 Ml Syringe) 40 mg SQ DAILY [facility] Last Admin: 09/14/23 08:23 Dose: 40 mg Formoterol Fumarate (Formoterol Fumarate 20 Mcg/2 Ml Nebu) 20 mcg INHALATION RT-BID [facility] Last Admin: 09/14/23 07:55 Dose: 20 mcg Gabapentin (Gabapentin 300 Mg Cap) 300 mg PO Q8H [facility] Last Admin: 09/14/23 14:57 Dose: Not Given Guaifenesin (Guaifenesin Syrup 100mg/5ml 200 Mg/10 Ml Cup) 200 mg PO Q6HR PRN PRN Reason: Cough Ceftriaxone Sodium 2 gm/ (Sodium Chloride) 50 mls @ 100 mls/hr IVPB Q24HR [facility] Last Admin: 09/14/23 08:23 Dose: 100 mls/hr Vancomycin HCl 1,250 mg/ (Sodium Chloride) 250 mls @ 125 mls/hr IVPB Q24HR [facility] Last Admin: 09/14/23 08:23 Dose: 125 mls/hr Lactulose (Lactulose 20 Gm/30 Ml Cup) 20 gm PO DAILY PRN PRN Reason: Constipation Levothyroxine Sodium (Levothyroxine 112 Mcg Tab) 112 mcg PO DAILY@0500 [facility] Last Admin: 09/14/23 05:10 Dose: 112 mcg Lorazepam (Lorazepam 0.5 Mg Tab) 0.5 mg PO Q6HR PRN PRN Reason: Anxiety Last Admin: 09/13/23 13:06 Dose: 0.5 mg Magnesium Oxide (Magnesium Oxide 400 Mg Tab) 400 mg PO BID@0500,1700 [facility] Last Admin: 09/14/23 05:10 Dose: 400 mg Melatonin (Melatonin 3 Mg Tablet) 3 mg PO HS PRN PRN Reason: Insomnia Miscellaneous Information (Vancomycin Trough Due 1 Each Misc) 0 each MISCELLANE DIRECTED ONE Stop: 09/16/23 08:01 Naloxone HCl (Naloxone 0.4 Mg/Ml 1 Ml Vial) 0.2 mg IVP Q2M PRN PRN Reason: Opioid Reversal Ondansetron HCl (Ondansetron 4 Mg/2 Ml Vial) 4 mg IVP Q8HR PRN PRN Reason: Nausea And Vomiting Pantoprazole Sodium (Pantoprazole 40 Mg Tablet) 40 mg PO BID@0500,1700 [facility] Last Admin: 09/14/23 05:10 Dose: 40 mg Prednisone (Prednisone 20 Mg Tab) 40 mg PO DAILY [facility] Last Admin: 09/14/23 08:24 Dose: 40 mg Propranolol HCl (Propranolol 20 Mg Tab) 20 mg PO BID@0500,1700 [facility] Last Admin: 09/14/23 05:10 Dose: 20 mg Ziprasidone (Ziprasidone 60 Mg Cap) 60 mg PO HS@1700 [facility] Last Admin: 09/13/23 17:23 Dose: 60 mg Ziprasidone (Ziprasidone 40 Mg Cap) 40 mg PO DAILY@0500 [facility] Last Admin: 09/14/23 05:10 Dose: 40 mg Social history: Lives alone. Does use a walker. Stopped smoking a year ago. Smoked a pack a day for close to 50 years. Physical examination: VITAL SIGNS: 98.2, 88, 16, 127 x 75, 91% on 5 L GENERAL: Up in a chair, breathing a bit better EYES: Pupils equal. Conjunctiva rosa l. HEENT: External appearance of nose and ears normal, oral cavity grossly normal. NECK: JVD not raised; masses not palpable. HEART: First and second heart sounds are normal; no edema. LUNGS: Respiratory rate increased, some crackles in the bases with wheezing. ABDOMEN: Soft, nontender, liver spleen not palpable, no masses palpable. PSYCH: Alert and oriented x3; mood and affect rosa l. MUSCULOSKELETAL:No Clubbing/cyanosis;muscles-grossly intact NEUROLOGICAL: Cranial nerves grossly intact; no facial asymmetry, power and sensation grossly intact. INVESTIGATIONS, reviewed in the clinical context: Blood culture [September 08] Staphylococcus hominis CT brain: No acute intracranial abnormality. Few small lacunar infarct versus prominent perivascular space in the right centrum semiovale. Compared to [address] scan: Multiple compression deformities stable T10, T11, L1, L3, L4. Multilevel DJD changes. Gallstones. Biliary stent. September 09: Potassium 5.2 creatinine 0.95 September 08: White count 8.9 hemoglobin 13.1 platelets 181 ABG pH 7.37, pCO2 69, pO2 59 potassium 5.5 BUN 33 creatinine 1.19 Influenza type A, type B, RSV, COVID-19: Not detected EKG tracing personally reviewed by me-sinus tachycardia. Chest x-ray film personally reviewed by me-possible basilar infiltrate/atelectasis Assessment and plan: -Acute severe COPD exacerbation in ex-smoker:: Improving DuoNeb every 4. Nebulized Pulmicort Perforomist. oral prednisone -Acute hypoxic and hypercapnic respiratory failure from COPD exacerbation: Continues to use BiPAP overnight -Probable pneumonia suspect gram-negative organism, POA IV ceftriaxone -Positive blood cultures Staphylococcus hominis x 2 sets: Likely contaminant t IV vancomycin. ID following -Chronic hypoxic and hypercapnic respiratory failure underlying COPD Uses 5 L of oxygen at home -Hypothyroid Synthroid 112 mcg a day -GERD Protonix 40 mg twice daily -Obstructive sleep apnea uses CPAP -Right nephrectomy for a prior kidney cancer -Bilateral lower extremity weakness with frequent falls Orthopedics Dr. Schmidt following. MRI lumbar spine showing chronic changes. Currently plan for conservative management. -Multiple compression deformities stable T10, T11, L1, L3, L4. Multilevel DJD changes. -Obstructive sleep apnea uses CPAP at home 12 cm water -Chronic biliary stent -Gallstones, asymptomatic -IBS Mesalamine -Bipolar disorder Wellbutrin SR, Geodon -Chronic gait dysfunction uses a walker at baseline -Full code Plan for conservative management and brace per orthopedics. For possible discharge tomorrow. Past Medical History Past Medical History: Asthma, COPD, GERD/Reflux, Hyperlipidemia, Liver Disease, Sleep Apnea/CPAP/BIPAP Additional Past Medical History / Comment(s): hx internal hemorrhoid, kidney CA with right nephrectomy, CPAP use, colitis, IBS History of Any Multi-Drug Resistant Organisms: None Reported Past Surgical History: Hysterectomy Additional Past Surgical History / Comment(s): right nephrectomy 04/11/22 Past Anesthesia/Blood Transfusion Reactions: No Reported Reaction Past Psychological History: Anxiety, Bipolar, Depression Smoking Status: Former smoker Past Alcohol Use History: None Reported Past Drug Use History: None Reported
--- NOTE | 2023-09-14 16:56 | P.PN ---
Subjective Progress Note Date: 09/14/23 Principal diagnosis: Reason for follow-up is positive blood culture Patient is a 63-year-old female with a past medical history significant for hypertension reflux COPD asthma sleep apnea anxiety bipolar depression former smoker presenting to the hospital for evaluation generalized weakness patient did have a positive blood culture prompting this consultation. On today's evaluation that is 09/14/2023,the patient denies any fever or any chills, patient is complaining of shortness of breath and cough currently on 5 L nasal oxygen no chest pain no nausea vomiting no abdominal pain or diarrhea. Patient did have a creatinine 0.89 blood pressure repeat has been negative Objective - Vital Signs Vital signs: Vital Signs Temp 98.2 F 09/14/23 15:31 Pulse 88 09/14/23 15:31 Resp 16 09/14/23 15:31 BP 127/75 09/14/23 15:31 Pulse Ox 91 L 09/14/23 15:31 FiO2 50 09/13/23 03:42 Intake & Output 09/13/23 09/14/23 09/14/23 18:59 06:59 18:59 Intake Total 562 342 Balance 562 342 Intake: Oral 562 342 Other: Voiding Method Toilet Toilet Toilet # Voids 1 1 3 # Bowel Movements 1 2 1 - Exam GENERAL DESCRIPTION: Middle-aged female lying in bed in no distress RESPIRATORY SYSTEM: Unlabored breathing , coarse breath sounds at bases HEART: S1 S2 regular rate and rhythm , ABDOMEN: Soft , no tenderness EXTREMITIES: No edema feet - Labs CBC & Chem 7: 09/09/23 11:34 09/14/23 09:33 Labs: Abnormal Lab Results - Last 24 Hours (Table) 09/14/23 Range/Units 09:33 Potassium 3.0 L (3.5-5.1) mmol/L BUN 28 H (7-17) mg/dL Glucose 100 H (74-99) mg/dL Microbiology - Last 24 Hours (Table) 09/12/23 15:47 Blood Culture - Preliminary Blood 09/12/23 15:40 Blood Culture - Preliminary Blood 09/09/23 13:45 Blood Culture Gram Stain - Preliminary Blood Blood Culture - Preliminary Staphylococcus hominis Anaerobic Gram Positive Cocci Molecular ID Assessment and Plan (1) Positive blood culture Current Visit: Yes Status: Acute Code(s): R78.81 - BACTEREMIA SNOMED Code(s): 407569141 Plan: 1patient with a positive blood culture with Streptococcus hominis which is a coagulase-negative staph and more likely skin contamination as the patient has no fever or elevated white count on presentation the hospital and no obvious focus of infection patient did have a history of compression fracture denies any worsening back pain did have multiple skin bruises no evidence of any cellulitis or joint swelling 2-blood culture has been repeated and so far negative 3-patient did have an normal CRP and a sed rate there will go against any active infection and the patient seem to have cleared her bacteremia without antibiotic therapy hence will monitor closely off antibiotic Dictation was produced using [employer] dictation software. please excuse any grammatical, word or spelling errors. Time with Patient: Less than 30
--- NOTE | 2023-09-14 16:59 | MR ---
EXAMINATION TYPE: MR thoracic spine wo con DATE OF EXAM: 09/14/2023 2:30 PM CLINICAL INDICATION:Female, 63 years old with history of Leg weakness, fracture L1; PHH, Leg weakness , fracture L1 COMPARISON: MR lumbar spine 09/13/2023. TECHNIQUE: Multi planar, multi sequence imaging of the thoracic spine performed without contrast per facility protocol. IV Contrast: None FINDINGS: Partially seen cervical spine shows mild multilevel degenerative disc disease without significant can al stenosis. There is mild cord syrinx suggested. Thoracic spine vertebral bodies show relatively homogeneous marrow signal without evidence for suspic ious T1 dark lesions. There are multiple compression fracture deformities seen. Mild height loss along the superior endplat e T5 without significant associated edema. Small hemangioma in the inferior central T5 vertebral body . Mild height loss superior endplate T6 without significant associated edema. Mild to moderate height loss along the superior endplate T10, moderate height loss with anterior wedging T11 and L1 vertebra l bodies, with mild associated marrow edema, likely subacute fractures. No significant retropulsion o r spinal canal narrowing is seen. There are small posterior disc osteophyte complexes T10-T11, T11-T1 2, T12-L1, L1-L2. Visualized paraspinous soft tissues partially show questionable signal abnormalities in the lung base s which could reflect atelectasis or infiltrates. Partially imaged T2 bright 4.1 cm lesion on the lef t, may represent cyst of the left renal upper pole. Mild/moderate atherosclerosis of the aorta with m ild tortuosity seen. IMPRESSION: 1. Multilevel compression fracture deformities are seen. 2. Mild height loss T5 and T6, likely chronic. 3. Mild to moderate height loss T10, moderate height loss with anterior wedging T11 and L1, with mil d associated marrow edema, likely subacute fractures. 4. No significant retropulsion or spinal canal stenosis is seen.
[2023-09-15 04:38] VITALS: RESP 17
[2023-09-15 07:26] VITALS: BMI 24.7
[2023-09-15 09:34] VITALS: TEMP 98
[2023-09-15 11:35] VITALS: BP 133/72
[2023-09-15 12:04] VITALS: PULSE 76
--- NOTE | 2023-09-15 14:02 | P.PN ---
Subjective Progress Note Date: 09/15/23 Principal diagnosis: Shortness of breath. This is a 63-year-old female, known history of severe COPD, normally sees Dr. Acosta, her FEV1 is 60% of the predicted, patient is also known to have history of obstructive sleep apnea, normally on CPAP at a pressure of 12 cm of water. She had previous history of renal cell carcinoma undergone previous right nephrectomy followed by targeted therapy. History of GERD, history of multiple admissions with COPD exacerbation in the past, patient is also known to have history of degenerative joint disease and previous left hip hemiart hroplasty in February 18, 2023. This time the patient came into the ER mostly with symptoms of weakness, chronic shortness of breath, chest x-ray showed bibasilar atelectasis, questionable infiltrates, patient does have chronic shortness of breath, chronic intermittent cough, and intermittent wheezing. Patient was admitted, placed on antibiotics and steroids as well as bronchodilators, placed on BiPAP, and this consult was initiated. Her WBC count is 8.9, hemoglobin 13.1. Her ABG on 45% FiO2 showed a pO2 of 59 and pCO2 of 69 pH of 7.37 remind you patient is on home O2 at 5 L/min chronically basic metabolic profile was normal, renal profile was normal, BNP level was normal thyroid profile was normal and screening for influenza RSV and SARS came back negative. When I evaluated the patient, she was on BiPAP, and she did not want to use it, I transitioned her to 5 L nasal cannula. Patient was mostly complaining of weakness and intermittent episodes of tremors. She basically told me that that is the main reason she came into the hospital, and it was not related to her breathing Progress note dated September 11, 2023. This is a 63-year-old female who sees one of my partners, for her COPD. She has moderate COPD, with an FEV1 that 60% of predicted. The patient also sees that same partner, for underlying sleep apnea syndrome. Currently, the patient is on 5 L nasal cannula. This is what she uses at home. She is not receiving any IV fluids. She does use BiPAP at nighttime, with settings of 12/6, 50%. At home, she has CPAP. The patient request a CT scan of the brain, because she feels like she might be having either a mini stroke, or a CVA. A CT scan of the brain, without contrast is ordered. Blood cultures are positive. She remains on Rocephin. No new labs today. Pain CT shows no acute intracranial abnormalities. Progress note dated September 12, 2023. 63-year-old female seen today in room 363. Currently, she is on 5 L of oxygen by nasal cannula. She is not receiving any IV fluids. The patient did use BiPAP last night, with settings of 12/6, and 50%. Patient continues on Rocephin. Blood cultures were positive for staph hominis. No new labs today other than a glucose of 99. Progress note dated September 13, 2023. 63-year-old female again seen in room 363. The patient's blood cultures are showing evidence of Staphylococcus hominis. Patient's not receiving any IV fluids. She is on nasal oxygen at between 4 to 5 L. She continues on Rocephin and vancomycin. Her Solu-Medrol will be converted to prednisone 40 mg a day. Clinically, she is doing better. She states that she had a significant panic attack last night. Typically at home she takes Xanax. Labs today include a creatinine of 0.90. Progress note dated September 14, 2023. The patient is seen today room 363. She continues on oxygen by nasal cannula at 5 L. This is what she uses at home. She is getting saline at 20 cc an hour. She did use BiPAP last night, with settings of 12/6, and 50%. Clinically, she is feeling much better. Current labs include a sodium 141, potassium 3, chlorid es 107, CO2 29, BUN 28, creatinine 0.89. Glucose is 100. Calcium is 8.4. Procalcitonin level is 0.06. Blood cultures are positive for Staphylococcus hominis. Patient is currently on Rocephin and vancomycin. Progress note dated September 15, 2023. 63-year-old female seen today in room 363. She continues on oxygen therapy, at 3 L. She is receiving Rocephin and vancomycin. No IV fluids. Clinically, the patient is stable. From our perspective, the patient could be considered for possible discharge. Sodium 141, potassium 3, chlorides 107, CO2 29, BUN 28, and creatinine 0.89. Calcium is 8.4. Glucose is 100. Objective - Vital Signs Vital signs: Vital Signs Temp 98.0 F 09/15/23 09:30 Pulse 76 09/15/23 12:15 Resp 17 09/15/23 11:33 BP 133/72 09/15/23 11:33 Pulse Ox 87 L 09/15/23 11:33 FiO2 50 09/15/23 00:19 Intake & Output 09/14/23 09/15/23 09/15/23 18:59 06:59 18:59 Intake Total 564 220 Balance 564 220 Weight 61.235 kg Intake: Oral 564 220 Other: Voiding Method Toilet Toilet # Voids 3 3 # Bowel Movements 1 - Exam No acute distress, oriented 3. Currently, the patient is on 3 L nasal cannula. No conversational dyspnea noted. HEENT examination is grossly unremarkable. Mucous membranes are moist. No oral lesions. Neck supple. Full range of motion. No adenopathy thyromegaly or neck vein distention. Cardiovascular examination reveals regular rhythm rate. S1-S2 normal. No S3 or S4. No discernible murmur noted. Heart rate 76 bpm. Lungs reveal scattered inspiratory and expiratory wheezes and rhonchi. Breath sounds are equal bilaterally but diminished throughout. Saturations are 90% on 3 L. Abdomen soft bowel sounds are heard. No masses or tenderness. Extremities are intact. No cyanosis clubbing or edema. Skin is without rash or lesion. Neurologic examination is brief but nonfocal. - Labs CBC & Chem 7: 09/09/23 11:34 09/14/23 09:33 Labs: Microbiology - Last 24 Hours (Table) 09/12/23 15:47 Blood Culture - Preliminary Blood 09/12/23 15:40 Blood Culture - Preliminary Blood 09/13/23 09:53 Blood Culture - Preliminary Blood Assessment and Plan Assessment: Acute on chronic hypoxemic and hypercapnic respiratory failure. Chronic hypoxemic respiratory failure, on home O2 at 3 L. Staphylococcus hominis bacteremia. Moderate COPD, with an FEV1 that 60% of predicted. Obstructive sleep apnea syndrome, on home CPAP, with a pressure of 12 cm of water. Pulmonary nodule, being followed by Dr. Acosta, left lower lobe, 14 x 8 mm in size. Renal cell carcinoma, with previous nephrectomy. History of L1 compression fraction. Hypothyroidism. Lower extremity weakness. Plan: Plan dated September 11, 2023. The patient continues on 5 L nasal cannula during the daytime. At nighttime, she uses BiPAP, with settings of 12/6, 50%. The CT scan of the brain, that was done without contrast, shows no acute abnormality. She is not receiving any IV fluids. Blood cultures are positive for gram-positive cocci. They have yet to be identified as yet. We will continue to follow and make recommendations along the way. Prognosis is guarded. The patient continues on Rocephin. Plan dated September 12, 2023. The patient is doing better today than yesterday. She still has significant shortness of breath when she gets up from the bed or from the chair, goes to the bathroom. She is currently on 5 L. She did use BiPAP last night, with settings of 12/6, and 50%. She continues on Rocephin. Labs, x-rays, and medications are reviewed. The patient's overall prognosis remains guarded. We will continue to follow the patient, make recommendations along the way. The patient will need to follow-up with Dr. Acosta, after discharge. Plan dated September 13, 2023. The patient is doing better. She continues on appropriate therapies. She is on vancomycin and Rocephin as per the primary service. Her oxygen is at 5 L. Saturations are 93%. Her Solu-Medrol was converted to prednisone. Labs, x-rays, and medications are reviewed. She will follow-up with my partner after discharge. The patient continues to improve on a daily basis. She did have a panic attack last night, and mentions that she takes Xanax at home. Plan dated September 14, 2023. The patient is currently seen today in room 363. She appears relatively stable. Her breathing is much improved. She continues on oxygen by nasal cannula at 5 L. She did use BiPAP at nighttime. She continues on vancomycin, and Rocephin, as per infectious diseases. Blood cultures were passed of the for Staphylococcus hominis. We will continue to follow make recommendations. She will follow-up with Dr. Acosta in our office, after discharge. Plan dated September 15, 2023. The patient appears to be stable on 3 L of oxygen. Saturations are 90%. The patient will continue on her current regimen. Additional recommendations and suggestions are forthcoming. Labs, x-rays, medications are reviewed. Prognosis is guarded. We will continue to follow, make recommendations, where appropriate. Time with Patient: Less than 30
--- NOTE | 2023-09-15 15:34 | P.PN ---
Subjective Progress Note Date: 09/15/23 Principal diagnosis: Recent fall, multiple thoracic and lumbar compression fractures, lower extremity weakness Patient was evaluated today at bedside, she is sitting up in her hospital chair resting. She appears to be in no acute distress. Patient did undergo the thoracic MRI yesterday. Currently denies chest pain, shortness of breath, nausea or vomiting, lightheadedness, genital or perineal numbness or tingling, loss of bowel or bladder function Objective - Vital Signs Vital signs: Vital Signs Temp 98.0 F 09/15/23 09:30 Pulse 76 09/15/23 12:15 Resp 17 09/15/23 11:33 BP 133/72 09/15/23 11:33 Pulse Ox 87 L 09/15/23 11:33 FiO2 50 09/15/23 00:19 Intake & Output 09/14/23 09/15/23 09/15/23 18:59 06:59 18:59 Intake Total 564 220 Balance 564 220 Weight 61.235 kg Intake: Oral 564 220 Other: Voiding Method Toilet Toilet # Voids 3 3 # Bowel Movements 1 - Exam Gen: AOx3, NAD VSS stable at this time Integument: No open lesions or sores are visualized throughout the thoracic or lumbar spine, no areas of soft tissue swelling or erythema Palpation: Tenderness with palpation to the upper thoracic paraspinal and midline region ROM: Full range of motion in all major muscle groups of bilateral upper and lower extremities, no focal deficits appreciated Sensory Exam: Senory exam to light touch is intact C5-T1 Senosry exam to light touch is intact L2-S1 Motor: 5/5 strength appreciated in the bilateral upper extremities with shoulder elevation, shoulder abduction, elbow extension, elbow flexion, wrist extension, wrist flexion, brown stock washer 5/5 strength appreciated to bilateral lower extremities with hip flexion, knee extension, knee flexion, plantarflexion, dorsiflexion, EHL, FHL Reflexes: 2/4 in all UE and LE Negative Juanis's bilaterally Negative Babinski bilaterally Negative clonus bilaterally - Labs CBC & Chem 7: 09/09/23 11:34 09/14/23 09:33 Labs: Microbiology - Last 24 Hours (Table) 09/12/23 15:47 Blood Culture - Preliminary Blood 09/12/23 15:40 Blood Culture - Preliminary Blood 09/13/23 09:53 Blood Culture - Preliminary Blood Assessment and Plan Assessment: Frequent falls T10, T11, L1, L3, and L4 compression fractures Lumbar spondylosis Bilateral lower extremity weakness Multiple complex comorbidities Plan: Thoracic MRI demonstrates no significant areas of retropulsion of the compression fractures. There is no significant areas of central canal stenosis. There are minor endplate changes in the T5 and T6 vertebrae. Lumbar MRI demonstrates no significant areas of retropulsion of the compression fractures, this to include any significant areas of central canal stenosis Recommending conservative measures, this to include use of the brace when up and ambulating Pain control, continue with current medication DVT prophylaxis per primary medical service Continue with PT/OT Other medical specialty recommendations appreciated Discharge planning: On orthopedic standpoint patient is stable for discharge. Our follow-up information will be placed in the chart for patient to follow-up on an as-needed basis. Time with Patient: Less than 30
--- NOTE | 2023-09-15 16:03 | P.PN ---
Subjective Progress Note Date: 09/15/23 Principal diagnosis: Reason for follow-up is positive blood culture Patient is a 63-year-old female with a past medical history significant for hypertension reflux COPD asthma sleep apnea anxiety bipolar depression former smoker presenting to the hospital for evaluation generalized weakness patient did have a positive blood culture prompting this consultation. On today's evaluation that is 09/15/2023,the patient remains to be afebrile, patient is on 3 L nasal cannula supplemental oxygen and denies any worsening shortness of breath no chest pain or cough.Patient denies having any nausea or vomiting, no abdominal pain and no diarrhea has been reported. Patient did have a creatinine 0.89 blood culture repeat has been negative Objective - Vital Signs Vital signs: Vital Signs Temp 98.0 F 09/15/23 09:30 Pulse 89 09/15/23 11:33 Resp 17 09/15/23 11:33 BP 133/72 09/15/23 11:33 Pulse Ox 87 L 09/15/23 11:33 FiO2 50 09/15/23 00:19 Intake & Output 09/14/23 09/15/23 09/15/23 18:59 06:59 18:59 Intake Total 564 110 Balance 564 110 Weight 61.235 kg Intake: Oral 564 110 Other: Voiding Method Toilet Toilet # Voids 3 3 # Bowel Movements 1 - Exam GENERAL DESCRIPTION: Middle-aged female lying in bed in no distress RESPIRATORY SYSTEM: Unlabored breathing , coarse breath sounds at bases HEART: S1 S2 regular rate and rhythm , ABDOMEN: Soft , no tenderness EXTREMITIES: No edema feet - Labs CBC & Chem 7: 09/09/23 11:34 09/14/23 09:33 Labs: Microbiology - Last 24 Hours (Table) 09/12/23 15:47 Blood Culture - Preliminary Blood 09/12/23 15:40 Blood Culture - Preliminary Blood 09/13/23 09:53 Blood Culture - Preliminary Blood Assessment and Plan (1) Positive blood culture Current Visit: Yes Status: Acute Code(s): R78.81 - BACTEREMIA SNOMED Code(s): 675923141 Plan: 1patient with a positive blood culture with Streptococcus hominis which is a coagulase-negative staph and more likely skin contamination as the patient has no fever or elevated white count on presentation the hospital and no obvious focus of infection patient did have a history of compression fracture denies any worsening back pain did have multiple skin bruises no evidence of any cellulitis or joint swelling 2-blood culture has been repeated and so far negative 3-patient did have an normal CRP and a sed rate there will go against any active infection and the patient seem to have cleared her bacteremia without antibiotic therapy specific evidence positive blood culture hence recommending no antibiotic on discharge this was discussed with the admitting physician Dictation was produced using [employer] dictation software. please excuse any grammatical, word or spelling errors. Time with Patient: Less than 30
--- NOTE | 2023-09-15 17:16 | P.DS ---
Providers Date of admission: 09/09/23 12:54 Expected date of discharge: 09/15/23 Attending physician: Francisco Kahn Consults: 09/09/23 12:54 Consult Physician Routine Consulting Provider: Rob Ko Consult Reason/Comments: resp failure/bipap Do you want consulting provider notified?: Yes 09/10/23 17:38 Consult Physician Routine Consulting Provider: Doug Schmidt Consult Reason/Comments: Lower extremity weakness Do you want consulting provider notified?: Yes 09/12/23 15:04 Consult Physician Routine Consulting Provider: Ramya Schuler Consult Reason/Comments: Positive blood culture Do you want consulting provider notified?: Yes Primary care physician: Rl Gan MD Hospital Course: Chief Complaint: Short of breath Pleasant 63-year-old patient who follows with visiting physicians Dr. John. At home on oxygen 5 L. Patient became increasingly short of breath for last 2 days. No fever no chills. Having some sputum production. Bowels are okay. No edema. Had couple of falls in the last 2 days for weakness. Knees feel weak. Overnight was put on BiPAP. September 10: Some improvement in breathing. Bringing up little sputum sputum. CT scan thoracolumbar spine showing some chronic changes. MRI of the thoracolumbar spine has been ordered patient seen by orthopedics Dr. Schmidt. Patient still short of breath. Used BiPAP overnight September 11: Overnight using BiPAP. Still coughing up some phlegm. Short of breath. Tired. Blood cultures growing Staphylococcus hominis. From September 08. Repeat blood cultures ordered. Add IV vancomycin. Consult ID. MRI spine pending September 12: ID following. Feels the blood cultures coagulase-negative staph contaminant. MRI lumbar spine will be done later today. Dr. Schmidt following. Patient sitting for a chair. Used BiPAP overnight. Bringing up sputum. Remains short of breath. Tired. Pulmonary switch the patient to oral prednisone September 13: Sitting up in a chair. Some shortness of breath. BiPAP was used overnight. Lumbar MRI was reviewed by Dr. Schmidt's team. They are awaiting thoracic MRI. Currently conservative measures to continue. Including brace. Oral intake good. Patient walked 100 feet with rolling walker. September 14: Thoracic spine MRI showing multiple compression fractures. Patient was cleared by Dr. Schmidt team. They will follow-up outpatient as needed. Patient was cleared by pulmonary for discharge. Discussed with ID Dr. St. No further antibiotics. Patient eating well. Discussed. Discussion and discharge planning more than 35 minutes Social history: Lives alone. Does use a walker. Stopped smoking a year ago. Smoked a pack a day for close to 50 years. Physical examination: VITAL SIGNS: 98, 89, 17, 133 x 72, 90% on 3 L GENERAL: Up in a chair, breathing a bit better EYES: Pupils equal. Conjunctiva rosa l. HEENT: External appearance of nose and ears normal, oral cavity grossly normal. NECK: JVD not raised; masses not palpable. HEART: First and second heart sounds are normal; no edema. LUNGS: Respiratory rate increased, some crackles in the bases with wheezing. ABDOMEN: Soft, nontender, liver spleen not palpable, no masses palpable. PSYCH: Alert and oriented x3; mood and affect rosa l. MUSCULOSKELETAL:No Clubbing/cyanosis;muscles-grossly intact NEUROLOGICAL: Cranial nerves grossly intact; no facial asymmetry, power and sensation grossly intact. INVESTIGATIONS, reviewed in the clinical context: Thoracic spine MRI multiple levels of compression fracture Blood culture [September 08] Staphylococcus hominis CT brain: No acute intracranial abnormality. Few small lacunar infarct versus prominent perivascular space in the right centrum semiovale. Compared to [address] scan: Multiple compression deformities stable T10, T11, L1, L3, L4. Multilevel DJD changes. Gallstones. Biliary stent. September 09: Potassium 5.2 creatinine 0.95 September 08: White count 8.9 hemoglobin 13.1 platelets 181 ABG pH 7.37, pCO2 69, pO2 59 potassium 5.5 BUN 33 creatinine 1.19 Influenza type A, type B, RSV, COVID-19: Not detected EKG tracing personally reviewed by me-sinus tachycardia. Chest x-ray film personally reviewed by me-possible basilar infiltrate/atelectasis Assessment and plan: -Acute severe COPD exacerbation in ex-smoker:: Better DuoNeb every 4. Nebulized Pulmicort Perforomist. Discharged on prednisone taper -Acute hypoxic and hypercapnic respiratory failure from COPD exacerbation: Continues to use BiPAP overnight -Probable pneumonia suspect gram-negative organism, POA IV ceftriaxone-complete -Positive blood cultures Staphylococcus hominis x 2 sets: Likely contaminant No need for antibiotics. Seen by ID -Chronic hypoxic and hypercapnic respiratory failure underlying COPD DC on 4 L of oxygen -Hypothyroid Synthroid 112 mcg a day -GERD Protonix 40 mg twice daily -Obstructive sleep apnea uses CPAP -Right nephrectomy for a prior kidney cancer -Bilateral lower extremity weakness with frequent falls Orthopedics Dr. Schmidt following. MRI lumbar spine showing chronic changes. Currently plan for conservative management. -Multiple compression deformities stable T10, T11, L1, L3, L4. And thoracic spine. Multilevel DJD changes. Seen by Dr. Schmidt -Obstructive sleep apnea uses CPAP at home 12 cm water -Chronic biliary stent -Gallstones, asymptomatic -IBS Mesalamine -Bipolar disorder Wellbutrin SR, Geodon -Chronic gait dysfunction uses a walker at baseline -Full code Disposition: Home Past Medical History Past Medical History: Asthma, COPD, GERD/Reflux, Hyperlipidemia, Liver Disease, Sleep Apnea/CPAP/BIPAP Additional Past Medical History / Comment(s): hx internal hemorrhoid, kidney CA with right nephrectomy, CPAP use, colitis, IBS History of Any Multi-Drug Resistant Organisms: None Reported Past Surgical History: Hysterectomy Additional Past Surgical History / Comment(s): right nephrectomy 04/11/22 Past Anesthesia/Blood Transfusion Reactions: No Reported Reaction Past Psychological History: Anxiety, Bipolar, Depression Smoking Status: Former smoker Past Alcohol Use History: None Reported Past Drug Use History: None Reported Plan - Discharge Summary Discharge Rx Participant: No New Discharge Prescriptions: New Budesonide 0.5 mg INHALATION BID #60 ml predniSONE 10 mg PO DAILY #30 tab Continue Ziprasidone [Geodon] 40 mg PO DAILY@0500 Mesalamine [Delzicol] 800 mg PO TID@0500,1200,1700 Albuterol Inhaler [Ventolin Hfa Inhaler] 2 puff INHALATION RT-Q6H PRN PRN Reason: Shortness Of Breath buPROPion HCL [Wellbutrin SR] 200 mg PO BID@0500,1700 Ziprasidone [Geodon] 60 mg PO HS@1700 Levothyroxine Sodium [Synthroid] 112 mcg PO DAILY@0500 Gabapentin 300 mg PO Q8H Pantoprazole [Protonix] 40 mg PO BID@0500,1700 HYDROcodone/APAP 7.5-325MG [[place] 7.5-325] 1 tab PO Q8H Atorvastatin Calcium [Lipitor] 40 mg PO HS@1700 Fluticasone/Umeclidin/Vilanter [Trelegy Ellipta 100-62.5-25] 1 puff INHALATION RT-DAILY@0500 Propranolol [Inderal] 20 mg PO BID@0500,1700 Ipratropium-Albuterol Nebulize [Duoneb 0.5 mg-3 mg/3 ml Soln] 3 ml INHALATION RT-QID Magnesium Oxide [Mag-Ox] 400 mg PO BID@0500,1700 Discharge Medication List Ziprasidone [Geodon] 40 mg PO DAILY@0500 02/07/14 [History] Albuterol Inhaler [Ventolin Hfa Inhaler] 2 puff INHALATION RT-Q6H PRN 11/07/17 [History] Mesalamine [Delzicol] 800 mg PO TID@0500,1200,1700 11/07/17 [History] Atorvastatin Calcium [Lipitor] 40 mg PO HS@17007/03/22 [History] Levothyroxine Sodium [Synthroid] 112 mcg PO DAILY@0500 07/03/22 [History] Ziprasidone [Geodon] 60 mg PO HS@17007/03/22 [History] buPROPion HCL [Wellbutrin SR] 200 mg PO BID@0500,1700 07/03/22 [History] Fluticasone/Umeclidin/Vilanter [Trelegy Ellipta 100-62.5-25] 1 puff INHALATION RT-DAILY@0500 01/15/23 [History] Propranolol [Inderal] 20 mg PO BID@0500,1700 03/14/23 [History] Gabapentin 300 mg PO Q8H 09/09/23 [History] HYDROcodone/APAP 7.5-325MG [[place] 7.5-325] 1 tab PO Q8H 09/09/23 [History] Ipratropium-Albuterol Nebulize [Duoneb 0.5 mg-3 mg/3 ml Soln] 3 ml INHALATION RT-QID 09/09/23 [History] Magnesium Oxide [Mag-Ox] 400 mg PO BID@0500,1700 09/09/23 [History] Pantoprazole [Protonix] 40 mg PO BID@0500,1700 09/09/23 [History] Budesonide 0.5 mg INHALATION BID #60 ml 09/15/23 [Rx] predniSONE 10 mg PO DAILY #30 tab 09/15/23 [Rx] Follow up Appointment(s)/Referral(s): Rl Gan MD [Primary Care Provider] - 1-2 days Doug Schmidt DO [Doctor of Osteopathic Medicine] - As Needed Rosales Acosta MD [STAFF PHYSICIAN] - 10/20/23 2:00 pm Patient Instructions/Handouts: COPD (Chronic Obstructive Pulmonary Disease) (DC) Activity/Diet/Wound Care/Special Instructions: abx per ID IS for home Discharge Disposition: TRANSFER TO SNF/ECF
[2023-09-16] MEDS ORDERED: VANCOMYCIN TROUGH DUE 1 EACH MISC MISCELLANE ONE (08:00)
== END 2023-09-15 16:57 | DRG 189 ==
LOC: EC 10:52 → 3SCARD 12:54
PROVIDERS: ADMIT Hospitalist; ATTEND Hospitalist
PROC: 5A09357 Assistance with Respiratory Ventilation, Less than 24 Consecutive Hours, Continuous Positive Airway Pressure (ICD-10-PCS; principal; 2023-09-09)
DX: J96.21 Acute and chronic respiratory failure with hypoxia (principal); J15.69 Pneumonia due to other Gram-negative bacteria; J44.1 Chronic obstructive pulmonary disease with (acute) exacerbation; M48.54XA Collapsed vertebra, not elsewhere classified, thoracic region, initial encounter for fracture; M48.56XA Collapsed vertebra, not elsewhere classified, lumbar region, initial encounter for fracture; R78.81 Bacteremia; J44.0 Chronic obstructive pulmonary disease with (acute) lower respiratory infection; J96.22 Acute and chronic respiratory failure with hypercapnia; B95.7 Other staphylococcus as the cause of diseases classified elsewhere; K21.9 Gastro-esophageal reflux disease without esophagitis; M47.816 Spondylosis without myelopathy or radiculopathy, lumbar region; G47.33 Obstructive sleep apnea (adult) (pediatric); R29.6 Repeated falls; Z90.5 Acquired absence of kidney; Z99.81 Dependence on supplemental oxygen; Z91.81 History of falling; K58.9 Irritable bowel syndrome, unspecified; Z88.0 Allergy status to penicillin; Z88.2 Allergy status to sulfonamides; Z88.6 Allergy status to analgesic agent; Z88.5 Allergy status to narcotic agent; Z79.890 Hormone replacement therapy; Z87.19 Personal history of other diseases of the digestive system
CPT/HCPCS: 36415; 36600; 70450; 71045; 72100; 72128; 72131; 72146; 72148; 80048; 80053; 82565; 82805; 83605; 83735; 83880; 84145; 84439; 84443; 84481; 84484; 85025; 85610; 85652; 85730; 86140; 87040; 87077; 87186; 87636; 93005; 94640; 94660; 94760; 96365; 96366; 96375; 96376; 99291

== ENCOUNTER 2023-09-25 15:18 | Inpatient (IN) | payer MEDICARE, OTHER ==
--- NOTE | 2023-09-25 15:51 | ED ---
Recheck HPI - General Chief Complaint: Recheck/Abnormal Lab/Rx Stated Complaint: Low pulse Time Seen by Provider: 09/25/23 15:38 Source: patient, RN notes reviewed Mode of arrival: EMS Limitations: no limitations - History of Present Illness Initial Comments: 63-year-old female with history of COPD and asthma presenting to the ER with chief complaint of low oxygen. States she was at home with her home health care nurse, when the nurse noticed that her oxygen was 77% when she was up and moving around. This prompted the nurse to call EMS. Patient reports she is asymptomatic and states her oxygen is always in the high 80s. Denies chest pain, shortness of breath, fever, chills. States she was admitted to the hospital recently and was released 1 week ago. She states she has 1 dose left of her steroid she was prescribed. States she is feeling better. - Related Data Home Medications Medication Instructions Recorded Confirmed Ziprasidone [Geodon] 40 mg PO DAILY@0500 02/07/14 09/25/23 Albuterol Inhaler [Ventolin Hfa 2 puff INHALATION RT-Q6H PRN 11/07/17 09/25/23 Inhaler] Mesalamine [Delzicol] 800 mg PO TID@0500,1200,1700 11/07/17 09/25/23 Atorvastatin Calcium [Lipitor] 40 mg PO HS@1700 07/03/22 09/25/23 Levothyroxine Sodium [Synthroid] 112 mcg PO DAILY@0500 07/03/22 09/25/23 Ziprasidone [Geodon] 60 mg PO HS@1700 07/03/22 09/25/23 buPROPion HCL [Wellbutrin SR] 200 mg PO BID@0500,1700 07/03/22 09/25/23 Fluticasone/Umeclidin/Vilanter 1 puff INHALATION RT-DAILY@0500 01/15/23 09/25/23 [Trelegy Ellipta 100-62.5-25] Propranolol [Inderal] 20 mg PO BID@0500,1700 03/14/23 09/25/23 Gabapentin 300 mg PO Q8H 09/09/23 09/25/23 HYDROcodone/APAP 7.5-325MG [[place] 1 tab PO Q8H 09/09/23 09/25/23 7.5-325] Ipratropium-Albuterol Nebulize 3 ml INHALATION RT-QID 09/09/23 09/25/23 [Duoneb 0.5 mg-3 mg/3 ml Soln] Magnesium Oxide [Mag-Ox] 400 mg PO BID@0500,1700 09/09/23 09/25/23 Pantoprazole [Protonix] 40 mg PO BID@0500,1700 09/09/23 09/25/23 predniSONE See Taper PO DAILY 09/25/23 09/25/23 Previous Rx's Medication Instructions Recorded Budesonide 0.5 mg INHALATION BID #60 ml 09/15/23 Allergies Allergy/AdvReac Type Severity Reaction Status Date / Time codeine Allergy Rash/Hives Verified 09/25/23 18:40 Penicillins Allergy Rash/Hives Verified 09/25/23 18:40 on feet Sulfa (Sulfonamide Allergy Rash/Hives Verified 09/25/23 18:40 Antibiotics) ibuprofen [From Motrin] AdvReac Nausea & Verified 09/25/23 18:40 Vomiting Review of Systems ROS Statement: Those systems with pertinent positive or pertinent negative responses have been documented in the HPI. ROS Other: All systems not noted in ROS Statement are negative. Past Medical History Past Medical History: Asthma, COPD, GERD/Reflux, Hyperlipidemia, Liver Disease, Sleep Apnea/CPAP/BIPAP Additional Past Medical History / Comment(s): hx internal hemorrhoid, kidney CA with right nephrectomy, CPAP use, colitis, IBS History of Any Multi-Drug Resistant Organisms: None Reported Past Surgical History: Hysterectomy Additional Past Surgical History / Comment(s): right nephrectomy 04/11/22 Past Anesthesia/Blood Transfusion Reactions: No Reported Reaction Past Psychological History: Anxiety, Bipolar, Depression Smoking Status: Former smoker Past Alcohol Use History: None Reported Past Drug Use History: None Reported - Past Family History Father Family Medical History: COPD, Hyperlipidemia, Hypertension Mother Family Medical History: COPD, Hyperlipidemia, Hypertension General Exam Limitations: no limitations General appearance: alert, in no apparent distress Head exam: Present: atraumatic, normocephalic, normal inspection Eye exam: Present: normal appearance, PERRL, EOMI. Absent: scleral icterus, conjunctival injection, periorbital swelling ENT exam: Present: normal exam, mucous membranes moist Neck exam: Present: normal inspection. Absent: tenderness, meningismus, lymphadenopathy Respiratory exam: Present: normal lung sounds bilaterally. Absent: respiratory distress, wheezes, rales, rhonchi, stridor Cardiovascular Exam: Present: regular rate, normal rhythm, normal heart sounds. Absent: systolic murmur, diastolic murmur, rubs, gallop, clicks GI/Abdominal exam: Present: soft, normal bowel sounds. Absent: distended, tenderness, guarding, rebound, rigid Extremities exam: Present: normal inspection, full ROM, normal capillary refill. Absent: tenderness, pedal edema, joint swelling, calf tenderness Neurological exam: Present: alert, oriented X3 Psychiatric exam: Present: normal affect, normal mood Skin exam: Present: warm, dry, intact, normal color. Absent: rash Course Vital Signs 09/25/23 09/25/23 09/25/23 15:22 15:30 16:10 Temperature 98.0 F Pulse Rate 103 H 114 H Respiratory 20 20 20 Rate Blood Pressure 147/89 140/66 O2 Sat by Pulse 87 L 90 L Oximetry Medical Decision Making - Medical Decision Making Was pt. sent in by a medical professional or institution (, PA, [facility], urgent care, hospital, or fdc...) When possible be specific @ -Home health care called EMS due to oxygen in the 70s. Did you speak to anyone other than the patient for history (EMS, parent, family, police, friend...)? What history was obtained from this source @ -No Did you review nursing and triage notes (agree or disagree)? Why? @ -I reviewed and agree with nursing and triage notes Were old charts reviewed (outside hosp., previous admission, EMS record, old EKG, old radiological studies, urgent care reports/EKG's, fdc records)? Report findings @ -No old charts were reviewed Differential Diagnosis (chest pain, altered mental status, abdominal pain women, abdominal pain men, vaginal bleeding, weakness, fever, dyspnea, syncope, headache, dizziness, GI bleed, back pain, seizure, CVA, palpatations, mental health, musculoskeletal)? @ -Differential Dyspnea: Coronary syndrome, arrhythmia, tamponade, asthma, COPD, pulmonary embolism, pneumonia, pneumothorax, pulmonary effusion, anaphylaxis, diabetic ketoacidosis, flailed chest, pulmonary contusion, diaphragmatic rupture, anemia, neuromuscula r, this is not meant to be an all-inclusive list. EKG interpreted by me (3pts min.). @ -As above X-rays interpreted by me (1pt min.). @ -Chest x-ray reveals persistent densities adjacent to heart borders, pneumonia versus atelectasis versus underlying mass CT interpreted by me (1pt min.). @ -None done U/S interpreted by me (1pt. min.). @ -None done What testing was considered but not performed or refused? (CT, X-rays, U/S, labs)? Why? @ -None What meds were considered but not given or refused? Why? @ -None Did you discuss the management of the patient with other professionals (professionals i.e. , PA, [facility], lab, RT, psych nurse, social sciences lecturer, tuber machine operator helper, teacher, small business banking officer, hospice case manager)? Give summary @ -I spoke with Dr. Kahn's team who accepts admission at this time to observation for hypoxemia Was smoking cessation discussed for >3mins.? @ -No Was critical care preformed (if so, how long)? @ -No Were there social determinants of health that impacted care today? How? (Homelessness, low income, unemployed, alcoholism, drug addiction, transportation, low edu. Level, literacy, decrease access to med. care, detention, rehab)? @ -No Was there de-escalation of care discussed even if they declined (Discuss DNR or withdrawal of care, Hospice)? DNR status @ -No What co-morbidities impacted this encounter? (DM, HTN, Smoking, COPD, CAD, Cancer, CVA, ARF, Chemo, Hep., AIDS, mental health diagnosis, sleep apnea, morbid obesity)? @ -COPD Was patient admitted / discharged? Hospital course, mention meds given and route, prescriptions, significant lab abnormalities, going to OR and other pertinent info. @ -Patient was admitted. Patient was seen and evaluated for hypoxemia. Patient was at home when O2 dropped to the high 70s. Patient is asymptomatic currently. Patient is tachycardic at 103, afebrile, satting 87% on 4 L. Lab work is remarkable for white blood cell count 15.8. Chest x-ray reveals persistent densities adjacent to heart borders, pneumonia versus atelectasis versus underlying mass. Upon reevaluation, heart rate is 114 bpm and oxygen is 90% on room air. I spoke with Dr. Little team will except admission at this time to observation for hypoxemia. Case was discussed with my attending Dr. Kelsey. Undiagnosed new problem with uncertain prognosis? @ -No Drug Therapy requiring intensive monitoring for toxicity (Heparin, Nitro, Insulin, Cardizem)? @ -No Were any procedures done? @ -No Diagnosis/symptom? @ -Hypoxemia Acute, or Chronic, or Acute on Chronic? @ -Acute Uncomplicated (without systemic symptoms) or Complicated (systemic symptoms)? @ -Uncomplicated Side effects of treatment? @ -No Exacerbation, Progression, or Severe Exacerbation? @ -No Poses a threat to life or bodily function? How? (Chest pain, USA, ND, pneumonia, PE, COPD, DKA, ARF, appy, cholecystitis, CVA, Diverticulitis, Homicidal, Suicidal, threat to staff... and all critical care pts) @ -Yes - Lab Data Result diagrams: 09/25/23 16:20 09/25/23 16:20 Lab Results 09/25/23 09/25/23 09/25/23 Range/Units 16:20 16:20 16:20 WBC 15.8 H (3.8-10.6) k/uL RBC 4.87 (3.80-5.40) m/uL Hgb 13.6 (11.4-16.0) gm/dL Hct 46.4 H (34.0-46.0) % MCV 95.4 (80.0-100.0) fL MCH 28.0 (25.0-35.0) pg MCHC 29.3 L (31.0-37.0) g/dL RDW 14.9 (11.5-15.5) % Plt Count 285 (150-450) k/uL MPV 8.8 Neutrophils % 74 % Lymphocytes % 18 % Monocytes % 5 % Eosinophils % 2 % Basophils % 1 % Neutrophils # 11.6 H (1.3-7.7) k/uL Lymphocytes # 2.8 (1.0-4.8) k/uL Monocytes # 0.8 (0-1.0) k/uL Eosinophils # 0.3 (0-0.7) k/uL Basophils # 0.1 (0-0.2) k/uL Hypochromasia Moderate Sodium 138 (137-145) mmol/L Potassium 5.0 (3.5-5.1) mmol/L Chloride 103 (98-107) mmol/L Carbon Dioxide 34 H (22-30) mmol/L Anion Gap 1 mmol/L BUN 30 H (7-17) mg/dL Creatinine 1.09 H (0.52-1.04) mg/dL Est GFR (CKD-EPI)AfAm 62 (>60 ml/min/1.73 sqM) Est GFR (CKD-EPI)NonAf 54 (>60 ml/min/1.73 sqM) Glucose 109 H (74-99) mg/dL Calcium 9.2 (8.4-10.2) mg/dL Total Bilirubin 0.5 (0.2-1.3) mg/dL AST 37 H (14-36) U/L ALT 51 H (4-34) U/L Alkaline Phosphatase 128 H (38-126) U/L Troponin I <0.012 (0.000-0.034) ng/mL NT-Pro-B Natriuret Pep 53 pg/mL Total Protein 6.5 (6.3-8.2) g/dL Albumin 3.6 (3.5-5.0) g/dL - EKG Data -: EKG Interpreted by [facility] E[facility] Comments: EKG reveals normal sinus rhythm with no ST changes. Ventricular rate 96 bpm, OR interval 158, QRS duration 91, QT/QTc 339/393. Disposition Clinical Impression: Hypoxemia Disposition: ADMITTED IP TO THIS HOSP Condition: Stable Referrals: Rl Gan MD [Primary Care Provider] - 1-2 days Time of Disposition: 18:28
--- NOTE | 2023-09-25 16:49 | XR ---
EXAMINATION TYPE: XR chest 2V DATE OF EXAM: 09/25/2023 COMPARISON: 09/09/2023, CT chest 06/07/2023 INDICATION: Hypoxia TECHNIQUE: Frontal and lateral views of the chest are obtained. FINDINGS: The heart size is mildly prominent. The pulmonary vasculature is normal. Adjacent to the heart borders there is mild increased density present previously. This is also presen t on CT of 06/07/2023. Correlate with the history. Differential should include pneumonia and atelectas is as well as scarring. Underlying mass is not entirely excluded. Given the persistence, consider add itional workup. IMPRESSION: 1. Persistent densities adjacent to the heart borders. Additional workup recommended
[2023-09-25 17:01] LABS: Basophils # (A) 0.1 k/uL (0-0.2); Basophils % (A) 1 %; Eosinophils # (A) 0.3 k/uL (0-0.7); Eosinophils % (A) 2 %; HCT 46.4 % (34.0-46.0); HGB 13.6 gm/dL (11.4-16.0); Hypochromasia Moderate; Lymphocytes # (A) 2.8 k/uL (1.0-4.8); Lymphocytes % (A) 18 %; MCHC 29.3 g/dL (31.0-37.0); MCV 95.4 fL (80.0-100.0); Mean Platelet Volume 8.8; Monocytes # (A) 0.8 k/uL (0-1.0); Monocytes % (A) 5 %; Neutrophils # (A) 11.6 k/uL (1.3-7.7); Neutrophils % (A) 74 %; Platelet Count 285 k/uL (150-450); RBC 4.87 m/uL (3.80-5.40); RDW 14.9 % (11.5-15.5); WBC 15.8 k/uL (3.8-10.6)
[2023-09-25 17:10] LABS: ALT 51 U/L (4-34); AST 37 U/L (14-36); African American GFR (CKD) 62 (>60 ml/min/1.73 sqM); Albumin 3.6 g/dL (3.5-5.0); Alkaline Phosphatase 128 U/L (38-126); Anion Gap 1 mmol/L; Blood Urea Nitrogen 30 mg/dL (7-17); Calcium 9.2 mg/dL (8.4-10.2); Carbon Dioxide 34 mmol/L (22-30); Chloride 103 mmol/L (98-107); Glucose 109 mg/dL (74-99); Non-African American GFR(CKD) 54 (>60 ml/min/1.73 sqM); Sodium 138 mmol/L (137-145); Total Bilirubin 0.5 mg/dL (0.2-1.3); Total Protein 6.5 g/dL (6.3-8.2)
[2023-09-25 17:17] LABS: NT-Pro-B-Type Natriuretic Pept 53 pg/mL
[2023-09-25] MEDS ORDERED: NALOXONE 0.4 MG/ML 1 ML VIAL IV PRN (18:25)
[2023-09-25] MEDS ORDERED: ACETAMINOPHEN TAB 325 MG TAB PO PRN (18:25)
[2023-09-25] MEDS ORDERED: ALBUTEROL NEBULIZED 2.5 MG/3 ML INHALATION PRN (20:08)
[2023-09-25] MEDS ORDERED: IPRATROPIUM-ALBUTEROL 3 ML NEB INHALATION PRN (20:10)
[2023-09-25] MEDS: GABAPENTIN 300 MG CAP PO SCH (20:19)
[2023-09-25] MEDS: MAGNESIUM OXIDE 400 MG TAB PO STA (21:02)
[2023-09-25] MEDS: HEPARIN SODIUM,PORCINE 5,000 UNIT/ML 1 ML VIAL SQ SCH (21:03)
[2023-09-25] MEDS: HYDROcodone/APAP 7.5-325MG 1 EACH TAB PO SCH (21:03)
[2023-09-25] MEDS: PANTOPRAZOLE 40 MG TABLET PO STA (21:03)
[2023-09-25] MEDS: BALSALAZIDE DISODIUM 750 MG CAPSULE PO ONE (21:13)
[2023-09-25] MEDS: PROPRANOLOL 20 MG TAB PO STA (21:13)
[2023-09-25] MEDS: ZIPRASIDONE 40 MG CAP PO STA (21:13)
[2023-09-25] MEDS: buPROPion 100 MG TAB PO SCH (21:13)
[2023-09-26] MEDS: LEVOTHYROXINE 112 MCG TAB PO SCH (04:23)
[2023-09-26] MEDS: buPROPion SR 100 MG TABLET.ER PO SCH (05:13)
[2023-09-26] MEDS: MAGNESIUM OXIDE 400 MG TAB PO SCH (05:13)
[2023-09-26] MEDS: ZIPRASIDONE 40 MG CAP PO SCH (05:13)
[2023-09-26] MEDS: PANTOPRAZOLE 40 MG TABLET PO SCH (05:13)
[2023-09-26] MEDS: PROPRANOLOL 20 MG TAB PO SCH (05:13)
[2023-09-26] MEDS: BALSALAZIDE DISODIUM 750 MG CAPSULE PO SCH (05:14)
[2023-09-26] MEDS: SYMBICORT 160-4.5 MCG INHALER INHALATION SCH (07:59)
[2023-09-26] MEDS: IPRATROPIUM-ALBUTEROL 3 ML NEB INHALATION SCH (07:59)
[2023-09-26] MEDS ORDERED: predniSONE 10 MG TAB PO SCH (09:00)
[2023-09-26] MEDS: predniSONE 20 MG TAB PO SCH (09:49)
[2023-09-26] MEDS: DOXYCYCLINE 100 MG CAP PO SCH (09:50)
[2023-09-26 10:39] LABS: Basophils # (A) 0.07 X 10*3/uL (0.00-0.10); Basophils % (A) 0.5 %; Eosinophils # (A) 0.23 X 10*3/uL (0.04-0.35); Eosinophils % (A) 1.5 %; HCT 45.3 % (37.2-46.3); HGB 13.7 g/dL (12.0-15.0); Lymphocytes # (A) 3.21 X 10*3/uL (0.90-5.00); Lymphocytes % (A) 21.5 %; MCH 28.4 pg (27.0-32.0); MCHC 30.2 g/dL (32.0-37.0); MCV 93.8 FL (80.0-97.0); Mean Platelet Volume 12.1 FL (9.5-12.2); Monocytes # (A) 1.03 X 10*3/uL (0.20-1.00); Monocytes % (A) 6.9 %; NRBC Per 100 WBC 0 X 10*3/uL (0.00-0.01); Neutrophils # (A) 10.29 X 10*3/uL (1.80-7.70); Neutrophils % (A) 69.1 %; Platelet Count 265 X 10*3/uL (140-440); RBC 4.83 X 10*6/uL (4.10-5.20); RDW 15.4 % (11.5-14.5)
[2023-09-26 10:54] LABS: ALT 42 U/L (8-44); AST 20 U/L (13-35); Albumin 3.7 g/dL (3.8-4.9); Albumin/Globulin Ratio 1.48 Ratio (1.60-3.17); Alkaline Phosphatase 150 U/L (41-126); BUN/Creat Ratio 23.27 Ratio (12.00-20.00); Blood Urea Nitrogen 25.6 mg/dL (9.0-27.0); Calcium 8.9 mg/dL (8.7-10.3); Carbon Dioxide 31.4 mmol/L (21.6-31.8); Chloride 101 mmol/L (96-109); Globulin 2.5 g/dL (1.6-3.3); Glucose 80 mg/dL (70-110); Potassium 4.3 mmol/L (3.5-5.5); Sodium 142 mmol/L (135-145); Total Bilirubin 0.4 mg/dL (0.3-1.2); Total Protein 6.2 g/dL (6.2-8.2)
--- NOTE | 2023-09-26 12:47 | P.CNPUL ---
History of Present Illness Consult date: 09/26/23 Requesting physician: Francisco Kahn Reason for consult: COPD Chief complaint: Low oxygen saturations History of present illness: This is a very pleasant 63-year-old female, known history of severe COPD, her FEV1 is 60% of the predicted, also known to have history of obstructive sleep apnea, normally on CPAP at a pressure of 12 cm of water. She had previous history of renal cell carcinoma undergone previous right nephrectomy followed by targeted therapy. History of GERD, history of multiple admissions with COPD exacerbation in the past. She was just discharged September 15, 2023 for a COPD e xacerbation including both hypoxic and hypercapnic respiratory failure requiring BiPAP support. She recovered and was doing well and yesterday visiting nurse was at the house and noticed her O2 saturation dropped to 77% while she was up moving around and called EMS and was brought here for evaluation. Chest x-ray shows persistent densities adjacent to the heart borders. These were also present on CT scan in May 2023. White count 14.9. Hemoglobin 13.7. Platelets 265. Sodium 142. Potassium 4.3. Bicarb 31. BUN 26. Creatinine 1.1. Glucose 80. Viral screen is negative. She is seen today in consultation in the emergency department. Currently sitting up on a stretcher. Awake and a lert in no acute distress. She states she does not feel any worse than she did when she was discharged. She notes her oxygen can run in the lower 80s without difficulty. She denies any fever or chills. No nausea vomiting diarrhea. No worsening shortness of breath, cough or congestion. No hemoptysis. Currently maintaining O2 saturations in the 90s on 4 L/min per nasal cannula. She has been afebrile. Hemodynamically stable. Review of Systems REVIEW OF SYSTEMS: CONSTITUTIONAL: Denies any recent significant weight loss or weight gain. EYES: Denies change in vision. EARS, NOSE, MOUTH, THROAT: Denies headaches, denies sore throat. CARDIOVASCULAR: Denies chest pain, palpitations or syncopal episodes. RESPIRATORY: Denies shortness of breath, cough, congestion or hemoptysis. GASTROINTESTINAL: Denies change in appetite, denies abdominal pain GENITOURINARY: Denies hematuria, denies infections. MUSKULOSKELETAL: Denies pain, denies swelling. INTEGUMENTARY: Denies rash, denies eczema. NEUROLOGICAL: Denies recent memory loss, no recent seizure activity. PSYCHIATRIC: Denies anxiety, denies depression. HEMATOLOGIC/LYMPHATIC: Denies anemia, denies enlarged lymph nodes. Past Medical History Past Medical History: Asthma, COPD, GERD/Reflux, Hyperlipidemia, Liver Disease, Sleep Apnea/CPAP/BIPAP Additional Past Medical History / Comment(s): hx internal hemorrhoid, kidney CA with right nephrectomy, CPAP use, colitis, IBS History of Any Multi-Drug Resistant Organisms: None Reported Past Surgical History: Hysterectomy Additional Past Surgical History / Comment(s): right nephrectomy 04/11/22 Past Anesthesia/Blood Transfusion Reactions: No Reported Reaction Past Psychological History: Anxiety, Bipolar, Depression Smoking Status: Former smoker Past Alcohol Use History: None Reported Past Drug Use History: None Reported - Past Family History Father Family Medical History: COPD, Hyperlipidemia, Hypertension Mother Family Medical History: COPD, Hyperlipidemia, Hypertension Medications and Allergies Home Medications Medication Instructions Recorded Confirmed Type Ziprasidone [Geodon] 40 mg PO DAILY@0500 02/07/14 09/25/23 History Albuterol Inhaler [Ventolin Hfa 2 puff INHALATION RT-Q6H PRN 11/07/17 09/25/23 History Inhaler] Mesalamine [Delzicol] 800 mg PO TID@0500,1200,1700 11/07/17 09/25/23 History Atorvastatin Calcium [Lipitor] 40 mg PO HS@1700 07/03/22 09/25/23 History Levothyroxine Sodium [Synthroid] 112 mcg PO DAILY@0500 07/03/22 09/25/23 History Ziprasidone [Geodon] 60 mg PO HS@1700 07/03/22 09/25/23 History buPROPion HCL [Wellbutrin SR] 200 mg PO BID@0500,1700 07/03/22 09/25/23 History Fluticasone/Umeclidin/Vilanter 1 puff INHALATION RT-DAILY@0500 01/15/23 09/25/23 History [Trelegy Ellipta 100-62.5-25] Propranolol [Inderal] 20 mg PO BID@0500,1700 03/14/23 09/25/23 History Gabapentin 300 mg PO Q8H 09/09/23 09/25/23 History HYDROcodone/APAP 7.5-325MG [[place] 1 tab PO Q8H 09/09/23 09/25/23 History 7.5-325] Ipratropium-Albuterol Nebulize 3 ml INHALATION RT-QID 09/09/23 09/25/23 History [Duoneb 0.5 mg-3 mg/3 ml Soln] Magnesium Oxide [Mag-Ox] 400 mg PO BID@0500,1700 09/09/23 09/25/23 History Pantoprazole [Protonix] 40 mg PO BID@0500,1700 09/09/23 09/25/23 History Budesonide 0.5 mg INHALATION BID #60 ml 09/15/23 09/25/23 Rx predniSONE See Taper PO DAILY 09/25/23 09/25/23 History Allergies Allergy/AdvReac Type Severity Reaction Status Date / Time codeine Allergy Rash/Hives Verified 09/25/23 18:40 Penicillins Allergy Rash/Hives Verified 09/25/23 18:40 on feet Sulfa (Sulfonamide Allergy Rash/Hives Verified 09/25/23 18:40 Antibiotics) ibuprofen [From Motrin] AdvReac Nausea & Verified 09/25/23 18:40 Vomiting Physical Exam Vitals: Vital Signs Temp Pulse Resp BP Pulse Ox 09/26/23 11:38 87 09/26/23 11:29 85 09/26/23 10:00 82 25 H 120/78 88 L 09/26/23 08:12 74 09/26/23 08:02 79 10 L 91 L 09/26/23 08:00 79 91 L 09/26/23 07:55 97.7 F 79 18 134/83 91 L 09/26/23 06:23 83 19 133/82 94 L 09/26/23 03:00 80 19 125/75 90 L 09/25/23 23:41 74 18 107/56 92 L 09/25/23 19:33 107 H 18 128/64 90 L 09/25/23 16:10 114 H 20 140/66 90 L 09/25/23 15:30 20 09/25/23 15:22 98.0 F 103 H 20 147/89 87 L Intake and Output 09/25/23 09/26/23 09/26/23 22:59 06:59 14:59 Other: Weight 61.235 kg GENERAL EXAM: Alert, pleasant 63-year-old female, on 4 L nasal cannula, comfortable in no apparent distress. HEAD: Normocephalic. EYES: Normal reaction of pupils, equal size. NOSE: Clear with pink turbinates. THROAT: No erythema or exudates. NECK: No masses, no JVD. CHEST: No chest wall deformity. LUNGS: Equal air entry with few scattered rhonchi, diminished. CVS: S1 and S2 normal with no audible murmur, regular rhythm. ABDOMEN: No hepatosplenomegaly, normal bowel sounds, no guarding or rigidity. SPINE: No scoliosis or deformity SKIN: No rashes CENTRAL NERVOUS SYSTEM: No focal deficits, tone is normal in all 4 extremities. EXTREMITIES: There is no peripheral edema. No clubbing, no cyanosis. Peripheral pulses are intact. Results - Laboratory Findings CBC and BMP: 09/26/23 07:50 09/26/23 07:50 Abnormal lab findings: Abnormal Labs 09/25/23 09/25/23 09/26/23 16:20 16:20 07:50 WBC 15.8 H 14.90 H Hct 46.4 H MCHC 29.3 L 30.2 L RDW 15.4 H Immature Gran # 0.07 H Neutrophils # 11.6 H 10.29 H Monocytes # 1.03 H Carbon Dioxide 34 H BUN 30 H Creatinine 1.09 H Est GFR (CKD-EPI) BUN/Creatinine Ratio Glucose 109 H AST 37 H ALT 51 H Alkaline Phosphatase 128 H Albumin Albumin/Globulin Ratio 09/26/23 07:50 WBC Hct MCHC RDW Immature Gran # Neutrophils # Monocytes # Carbon Dioxide BUN Creatinine Est GFR (CKD-EPI) 56 L BUN/Creatinine Ratio 23.27 H Glucose AST ALT Alkaline Phosphatase 150 H Albumin 3.7 L Albumin/Globulin Ratio 1.48 L - Diagnostic Findings Chest x-ray: image reviewed Assessment and Plan Assessment: Acute on chronic hypoxic respiratory failure secondary to mild exacerbation of chronic obstructive pulmonary disease Chronic hypercapnic respiratory failure Severe COPD FEV1 of 60% Obstructive sleep apnea syndrome with apnea-hypopnea index of 16, on CPAP with pressure of 12 History of pulmonary nodule, being followed on outpatient basis, 14 x 8 mm subpleural nodule in the superior segment of the left lower lobe History of renal cell carcinoma previous nephrectomy History of L1 compression fracture and chronic back pain Hypothyroidism Plan: The patient was seen and evaluated Chest x-ray, labs and medications reviewed Add Jose inhalations Add Pulmicort and Perforomist inhalations Continue a prednisone taper Add empiric doxycycline Check a procalcitonin Heparin for DVT prophylaxis Titrate the FiO2 as tolerated We will continue to follow and make further recommendations based on her clinical status I have personally seen and examined the patient, performed the documentation and the assessment and plan as written. Number of minutes spent on the visit: 20.
--- NOTE | 2023-09-26 14:14 | P.HPIM ---
History of Present Illness 63-year-old female with history of COPD with FEV1 of 60% of the predicted general complaints of shortness of breath the patient has extensive wheezing patient uses anywhere between 3 and half to 4 L of oxygen presently on 4 L of oxygen saturating well at this time. Patient has diffuse bilateral rhonchi and bronchitis. Patient does have history of sleep apnea as well chest x-ray did not show any pneumonia. Patient is on oral steroids inhalational treatments. Patient will need continued hospitalization because of impending respiratory failure. Patient is having cough with dark sputum production denies any hemoptysis. Patient is hypoxic with O2 saturations of around 60% at home REVIEW OF SYSTEMS: CONSTITUTIONAL: No fever, no malaise, no fatigue. HEENT: No recent visual problems or hearing problems. Denied any sore throat. CARDIOVASCULAR: No chest pain, orthopnea, PND, no palpitations, no syncope. PULMONARY: As mentioned in HPI GASTROINTESTINAL: No diarrhea, no nausea, no vomiting, no abdominal pain. NEUROLOGICAL: No headaches, no weakness, no numbness. HEMATOLOGICAL: Denies any bleeding or petechiae. GENITOURINARY: Denies any burning micturition, frequency, or urgency. MUSCULOSKELETAL/RHEUMATOLOGICAL: Denies any joint pain, swelling, or any muscle pain. ENDOCRINE: Denies any polyuria or polydipsia. The rest of the 14-point review of systems is negative. PHYSICAL EXAMINATION: GENERAL: The patient is alert and oriented x3, not in any acute distress. Well developed, well nourished. HEENT: Pupils are round and equally reacting to light. EOMI. No scleral icterus. No conjunctival pallor. Normocephalic, atraumatic. No pharyngeal erythema. No thyromegaly. CARDIOVASCULAR: S1 and S2 present. No murmurs, rubs, or gallops. PULMONARY: Diffuse bilateral rhonchi consistent with bronchitis along with diffuse expiratory wheezing. ABDOMEN: Soft, nontender, nondistended, normoactive bowel sounds. No palpable organomegaly. MUSCULOSKELETAL: No joint swelling or deformity. EXTREMITIES: No cyanosis, clubbing, or pedal edema. NEUROLOGICAL: Gross neurological examination did not reveal any focal deficits. SKIN: No rashes. Assessment and plan -Acute on chronic hypercapnic and hypoxic respiratory failure secondary to COPD exacerbation patient will be continued on systemic steroids and additional treatments because of impending respiratory failure patient may need 1 more day of hospitalization -Bacterial bronchitis for which patient is on antibiotics -Obstructive sleep apnea continue with CPAP machine -History of pulmonary nodule which is chronic which is being followed as an outpatient -Renal cancer with previous nephrectomy -Hypothyroidism -Chronic back pain -Depression and other psychiatric issues for which patient was resumed on home medications, patient is also on balsalazide, unknown whether patient has autoimmune disease like Crohn's DVT prophylaxis: Lovenox Past Medical History Past Medical History: Asthma, COPD, GERD/Reflux, Hyperlipidemia, Liver Disease, Sleep Apnea/CPAP/BIPAP Additional Past Medical History / Comment(s): hx internal hemorrhoid, kidney CA with right nephrectomy, CPAP use, colitis, IBS History of Any Multi-Drug Resistant Organisms: None Reported Past Surgical History: Hysterectomy Additional Past Surgical History / Comment(s): right nephrectomy 04/11/22 Past Anesthesia/Blood Transfusion Reactions: No Reported Reaction Past Psychological History: Anxiety, Bipolar, Depression Smoking Status: Former smoker Past Alcohol Use History: None Reported Past Drug Use History: None Reported - Past Family History Father Family Medical History: COPD, Hyperlipidemia, Hypertension Mother Family Medical History: COPD, Hyperlipidemia, Hypertension Medications and Allergies Home Medications Medication Instructions Recorded Confirmed Type Ziprasidone [Geodon] 40 mg PO DAILY@0500 02/07/14 09/25/23 History Albuterol Inhaler [Ventolin Hfa 2 puff INHALATION RT-Q6H PRN 11/07/17 09/25/23 History Inhaler] Mesalamine [Delzicol] 800 mg PO TID@0500,1200,1700 11/07/17 09/25/23 History Atorvastatin Calcium [Lipitor] 40 mg PO HS@1700 07/03/22 09/25/23 History Levothyroxine Sodium [Synthroid] 112 mcg PO DAILY@0500 07/03/22 09/25/23 History Ziprasidone [Geodon] 60 mg PO HS@1700 07/03/22 09/25/23 History buPROPion HCL [Wellbutrin SR] 200 mg PO BID@0500,1700 07/03/22 09/25/23 History Fluticasone/Umeclidin/Vilanter 1 puff INHALATION RT-DAILY@0500 01/15/23 09/25/23 History [Trelegy Ellipta 100-62.5-25] Propranolol [Inderal] 20 mg PO BID@0500,1700 03/14/23 09/25/23 History Gabapentin 300 mg PO Q8H 09/09/23 09/25/23 History HYDROcodone/APAP 7.5-325MG [[place] 1 tab PO Q8H 09/09/23 09/25/23 History 7.5-325] Ipratropium-Albuterol Nebulize 3 ml INHALATION RT-QID 09/09/23 09/25/23 History [Duoneb 0.5 mg-3 mg/3 ml Soln] Magnesium Oxide [Mag-Ox] 400 mg PO BID@0500,1700 09/09/23 09/25/23 History Pantoprazole [Protonix] 40 mg PO BID@0500,1700 09/09/23 09/25/23 History Budesonide 0.5 mg INHALATION BID #60 ml 09/15/23 09/25/23 Rx predniSONE See Taper PO DAILY 09/25/23 09/25/23 History Allergies Allergy/AdvReac Type Severity Reaction Status Date / Time codeine Allergy Rash/Hives Verified 09/25/23 18:40 Penicillins Allergy Rash/Hives Verified 09/25/23 18:40 on feet Sulfa (Sulfonamide Allergy Rash/Hives Verified 09/25/23 18:40 Antibiotics) ibuprofen [From Motrin] AdvReac Nausea & Verified 09/25/23 18:40 Vomiting Physical Exam Vitals: Vital Signs Temp Pulse Resp BP Pulse Ox 09/26/23 12:00 87 24 120/73 88 L 09/26/23 11:38 87 09/26/23 11:29 85 09/26/23 10:00 82 25 H 120/78 88 L 09/26/23 08:12 74 09/26/23 08:02 79 10 L 91 L 09/26/23 08:00 79 91 L 09/26/23 07:55 97.7 F 79 18 134/83 91 L 09/26/23 06:23 83 19 133/82 94 L 09/26/23 03:00 80 19 125/75 90 L 09/25/23 23:41 74 18 107/56 92 L 09/25/23 19:33 107 H 18 128/64 90 L 09/25/23 16:10 114 H 20 140/66 90 L 09/25/23 15:30 20 09/25/23 15:22 98.0 F 103 H 20 147/89 87 L Intake and Output 09/25/23 09/26/23 09/26/23 22:59 06:59 14:59 Other: Weight 61.235 kg Results CBC & Chem 7: 09/26/23 07:50 09/26/23 07:50 Labs: Abnormal Lab Results - Last 24 Hours (Table) 09/25/23 09/25/23 09/26/23 Range/Units 16:20 16:20 07:50 WBC 15.8 H 14.90 H (3.8-10.6) k/uL Hct 46.4 H (34.0-46.0) % MCHC 29.3 L 30.2 L (31.0-37.0) g/dL RDW 15.4 H (11.5-14.5) % Immature Gran # 0.07 H (0.00-0.04) X 10*3/uL Neutrophils # 11.6 H 10.29 H (1.3-7.7) k/uL Monocytes # 1.03 H (0.20-1.00) X 10*3/uL Carbon Dioxide 34 H (22-30) mmol/L BUN 30 H (7-17) mg/dL Creatinine 1.09 H (0.52-1.04) mg/dL Est GFR (CKD-EPI) (>=60) BUN/Creatinine Ratio (12.00-20.00) Ratio Glucose 109 H (74-99) mg/dL AST 37 H (14-36) U/L ALT 51 H (4-34) U/L Alkaline Phosphatase 128 H (38-126) U/L Albumin (3.8-4.9) g/dL Albumin/Globulin Ratio (1.60-3.17) Ratio 09/26/23 Range/Units 07:50 WBC (3.8-10.6) k/uL Hct (34.0-46.0) % MCHC (31.0-37.0) g/dL RDW (11.5-14.5) % Immature Gran # (0.00-0.04) X 10*3/uL Neutrophils # (1.3-7.7) k/uL Monocytes # (0.20-1.00) X 10*3/uL Carbon Dioxide (22-30) mmol/L BUN (7-17) mg/dL Creatinine (0.52-1.04) mg/dL Est GFR (CKD-EPI) 56 L (>=60) BUN/Creatinine Ratio 23.27 H (12.00-20.00) Ratio Glucose (74-99) mg/dL AST (14-36) U/L ALT (4-34) U/L Alkaline Phosphatase 150 H (38-126) U/L Albumin 3.7 L (3.8-4.9) g/dL Albumin/Globulin Ratio 1.48 L (1.60-3.17) Ratio
[2023-09-26] MEDS: ZIPRASIDONE 60 MG CAP PO SCH (17:52)
[2023-09-26] MEDS: ATORVASTATIN 40 MG TAB PO SCH (17:52)
[2023-09-26] MEDS: BUDESONIDE 1 MG/2 ML NEBU INHALATION SCH (20:47)
[2023-09-26] MEDS: FORMOTEROL FUMARATE 20 MCG/2 ML NEBU INHALATION SCH (20:47)
[2023-09-27] MEDS: ENOXAPARIN 40 MG/0.4 ML SYRINGE SQ SCH (08:37)
[2023-09-27 12:13] LABS: HCT 44.1 % (37.2-46.3); HGB 13.3 g/dL (12.0-15.0); MCH 28.1 pg (27.0-32.0); MCHC 30.2 g/dL (32.0-37.0); MCV 93.2 FL (80.0-97.0); Mean Platelet Volume 12.2 FL (9.5-12.2); NRBC Per 100 WBC 0 X 10*3/uL (0.00-0.01); Platelet Count 228 X 10*3/uL (140-440); RBC 4.73 X 10*6/uL (4.10-5.20); RDW 15.4 % (11.5-14.5); WBC 17.26 X 10*3/uL (4.50-10.00)
[2023-09-27 12:21] LABS: BUN/Creat Ratio 22.64 Ratio (12.00-20.00); Blood Urea Nitrogen 31.7 mg/dL (9.0-27.0); Calcium 9.2 mg/dL (8.7-10.3); Carbon Dioxide 29.4 mmol/L (21.6-31.8); Chloride 100 mmol/L (96-109); Glucose 66 mg/dL (70-110); Potassium 4.1 mmol/L (3.5-5.5); Sodium 140 mmol/L (135-145)
--- NOTE | 2023-09-27 12:30 | P.PN ---
Subjective Progress Note Date: 09/27/23 This is a very pleasant 63-year-old female, known history of severe COPD, her FEV1 is 60% of the predicted, also known to have history of obstructive sleep apnea, normally on CPAP at a pressure of 12 cm of water. She had previous history of renal cell carcinoma undergone previous right nephrectomy followed by targeted therapy. History of GERD, history of multiple admissions with COPD exacerbation in the past. She was just discharged September 15, 2023 for a COPD exacerbation including both hypoxic and hypercapnic respiratory failure requiring BiPAP support. She recovered and was doing well and yesterday visiting nurse was at the house and noticed her O2 saturation dropped to 77% while she was up moving around and called EMS and was brought here for evaluation. Chest x-ray shows persistent densities adjacent to the heart borders. These were also present on CT scan in May 2023. White count 14.9. Hemoglobin 13.7. Platelets 265. Sodium 142. Potassium 4.3. Bicarb 31. BUN 26. Creatinine 1.1. Glucose 80. Viral screen is negative. She is seen today in consultation in the emergency department. Currently sitting up on a stretcher. Awake and alert in no acute distress. She states she does not feel any worse than she did when she was discharged. She notes her oxygen can run in the lower 80s without difficulty. She denies any fever or chills. No nausea vomiting diarrhea. No worsening shortness of breath, cough or congestion. No hemoptysis. Currently maintaining O2 saturations in the 90s on 4 L/min per nasal cannula. She has been afebrile. Hemodynamically stable. The patient is seen today September 27, 2023 in follow-up on the regular medical floor. She is currently sitting up in bed. Awake and alert in no acute distress. Maintaining good O2 saturations in the 90s on 4 L/min per nasal cannula. Procalcitonin was 0.07. White count 17.2. Hemoglobin 13.3. Platelet s 228. Sodium 140. Potassium 4.1. Bicarb 29. BUN 32. Creatinine 1.4. Glucose 66. She remains on DuoNeb inhalations, Pulmicort and Perforomist inhalations, Solu-Medrol. Empiric antibiotics in the form of doxycycline. Lovenox for DVT prophylaxis. Objective - Vital Signs Vital signs: Vital Signs Temp 97.8 F 09/27/23 07:00 Pulse 96 09/27/23 12:25 Resp 17 09/27/23 08:00 BP 114/71 09/27/23 07:00 Pulse Ox 88 L 09/27/23 09:31 FiO2 Intake & Output 09/26/23 09/27/23 09/27/23 18:59 06:59 18:59 Intake Total 118 Balance 118 Weight 61.235 kg Intake: Oral 118 Other: Voiding Method Toilet # Voids 2 - Exam GENERAL EXAM: Alert, active, 63-year-old female, sitting up in bed, on 4 L nasal cannula, comfortable in no apparent distress. HEAD: Normocephalic. EYES: Normal reaction of pupils, equal size. NOSE: Clear with pink turbinates. THROAT: No erythema or exudates. NECK: No masses, no JVD. CHEST: No chest wall deformity. LUNGS: Equal air entry with no crackles, wheeze, rhonchi or dullness. CVS: S1 and S2 normal with no audible murmur, regular rhythm. ABDOMEN: No hepatosplenomegaly, normal bowel sounds, no guarding or rigidity. SPINE: No scoliosis or deformity SKIN: No rashes CENTRAL NERVOUS SYSTEM: No focal deficits, tone is normal in all 4 extremities. EXTREMITIES: There is no peripheral edema. No clubbing, no cyanosis. Peripheral pulses are intact. - Labs CBC & Chem 7: 09/27/23 06:10 09/27/23 06:10 Labs: Abnormal Lab Results - Last 24 Hours (Table) 09/27/23 09/27/23 Range/Units 06:10 06:10 WBC 17.26 H (4.50-10.00) X 10*3/uL MCHC 30.2 L (32.0-37.0) g/dL RDW 15.4 H (11.5-14.5) % BUN 31.7 H (9.0-27.0) mg/dL Est GFR (CKD-EPI) 42 L (>=60) BUN/Creatinine Ratio 22.64 H (12.00-20.00) Ratio Glucose 66 L (70-110) mg/dL Assessment and Plan Assessment: Acute on chronic hypoxic respiratory failure secondary to mild exacerbation of chronic obstructive pulmonary disease. Procalcitonin negative Chronic hypercapnic respiratory failure Severe COPD FEV1 of 60% Obstructive sleep apnea syndrome with apnea-hypopnea index of 16, on CPAP with p ressure of 12 History of pulmonary nodule, being followed on outpatient basis, 14 x 8 mm subpleural nodule in the superior segment of the left lower lobe History of renal cell carcinoma previous nephrectomy History of L1 compression fracture and chronic back pain Hypothyroidism Plan: The patient was seen and evaluated Labs and medications reviewed Stable for discharge from the pulmonary standpoint Continue her home oxygen, pulmonary medications Complete a prednisone taper Keep her appointment in our office on 10/20/2023 This patient was seen independently by the pulmonary nurse practitioner addressing pulmonary issues I have personally seen and examined the patient, performed the documentation and the assessment and plan as written. Number of minutes spent on the visit: 24.
[2023-09-27 14:22] VITALS: BP 118/71; RESP 15; TEMP 98
--- NOTE | 2023-09-27 14:53 | XR ---
EXAMINATION TYPE: XR chest 1V portable DATE OF EXAM: 09/27/2023 COMPARISON: 09/25/2023 INDICATION: Hypoxia TECHNIQUE: Single frontal view of the chest is obtained. FINDINGS: The heart size is normal. The pulmonary vasculature is normal. Left lower lobe infiltrate is present. Mild right lower lobe medial infiltrate may be present. Follow -up is recommended IMPRESSION: 1. Right basilar infiltrate. Correlate for atelectasis or pneumonia.
[2023-09-27 16:30] VITALS: PULSE 96
--- NOTE | 2023-09-30 08:37 | P.DS ---
Providers Date of admission: 09/25/23 18:02 Attending physician: Francisco Kahn Consults: 09/25/23 20:12 Consult Physician Routine Consulting Provider: Rob Ko Consult Reason/Comments: hypoxemia Do you want consulting provider notified?: Yes Primary care physician: Rl Gan MD Hospital Course: Final Diagnosis -Acute on chronic hypercapnic and hypoxic respiratory failure secondary to COPD exacerbation -Bacterial bronchitis for which patient is on antibiotics -Obstructive sleep apnea continue with CPAP machine -History of pulmonary nodule which is chronic which is being followed as an out patient -Renal cancer with previous nephrectomy -Hypothyroidism -Chronic back pain -Depression and other psychiatric issues Discharge Disposition Stable for discharge home. Patient will require close follow-up with pulmonary services on discharge. She states that she is no longer taking her Trelegy inhaler and has been discharged on budesonide inhalation as prior. Patient will continue a course of oral doxycycline for 6 additional days and will continue a prednisone taper. Patient to follow-up with Dr. Ty in the office and has an appointment already made for second was recommended to keep that appointment. We would recommend patient to see her PCP Dr. Gan in 1 to 2 days. Hospital Course 63-year-old female with history of COPD with FEV1 of 60% of the predicted general complaints of shortness of breath the patient has extensive wheezing patient uses anywhere between 3 and half to 4 L of oxygen presently on 4 L of oxygen saturating well at this time. Patient has diffuse bilateral rhonchi and bronchitis. Patient does have history of sleep apnea as well chest x-ray did not show any pneumonia. Patient is on oral steroids inhalational treatments. Patient will need continued hospitalization because of impending respiratory failure. Patient is having cough with dark sputum production denies any hemoptysis. Patient is hypoxic with O2 saturations of around 60% at home patient was admitted to the hospital with a consult placed to pulmonary services. Patient was given IV steroids and biotics. Her procalcitonin level was found to be 0.07 and her viral panel was negative for influenza RSV and COVID. Patient was treated with oral doxycycline. Her oxygenation has improved and she is now maintaining saturations on her home dose of 4 L of oxygen. She is no longer feeling as short of breath and is able to get up and ambulate without dropping her oxygen saturation. She is recommended to go on the budesonide inhalation as she was on prior. Patient states that she has not been taking her Trelegy inhaler as she cannot inhale deep enough for this. She is on a prednisone taper and will continue this. Patient will need close follow-up with pulmonary services. Please see medication reconciliation for a list of current medications. Thank you for allowing us to participate in the care of this patient. The impression and plan of care has been dictated by Marika Louis, Nurse Practitioner as directed. Dr. Zeyad MD I have performed a history and physical examination and medical decision making of this patient, discussed the same with the dictator, and agree with the dictators assessment and plan as written, documented as a scribe. Based on total visit time, I have performed more than 50% of this visit. Patient Condition at Discharge: Stable Plan - Discharge Summary New Discharge Prescriptions: New Budesonide-Formot 160-4.5 Mcg [Symbicort 160-4.5 Mcg Inhaler] 2 puff INHALATION BID #10.2 gm Doxycycline [Vibramycin] 100 mg PO BID 6 Days #12 cap predniSONE 10 mg PO DIRECTED 12 Days #30 tab Continue Ziprasidone [Geodon] 40 mg PO DAILY@0500 Mesalamine [Delzicol] 800 mg PO TID@0500,1200,1700 Albuterol Inhaler [Ventolin Hfa Inhaler] 2 puff INHALATION RT-Q6H PRN PRN Reason: Shortness Of Breath buPROPion HCL [Wellbutrin SR] 200 mg PO BID@0500,1700 Ziprasidone [Geodon] 60 mg PO HS@1700 Levothyroxine Sodium [Synthroid] 112 mcg PO DAILY@0500 Gabapentin 300 mg PO Q8H Pantoprazole [Protonix] 40 mg PO BID@0500,1700 HYDROcodone/APAP 7.5-325MG [[place] 7.5-325] 1 tab PO Q8H predniSONE See Taper PO DAILY Atorvastatin Calcium [Lipitor] 40 mg PO HS@1700 Propranolol [Inderal] 20 mg PO BID@0500,1700 Ipratropium-Albuterol Nebulize [Duoneb 0.5 mg-3 mg/3 ml Soln] 3 ml INHALATION RT-QID Magnesium Oxide [Mag-Ox] 400 mg PO BID@0500,1700 Discontinued Fluticasone/Umeclidin/Vilanter [Trelegy Ellipta 100-62.5-25] 1 puff INHALATION RT-DAILY@0500 Budesonide 0.5 mg INHALATION BID #60 ml Discharge Medication List Ziprasidone [Geodon] 40 mg PO DAILY@0500 02/07/14 [History] Albuterol Inhaler [Ventolin Hfa Inhaler] 2 puff INHALATION RT-Q6H PRN 11/07/17 [History] Mesalamine [Delzicol] 800 mg PO TID@0500,1200,1700 11/07/17 [History] Atorvastatin Calcium [Lipitor] 40 mg PO HS@17007/03/22 [History] Levothyroxine Sodium [Synthroid] 112 mcg PO DAILY@05007/03/22 [History] Ziprasidone [Geodon] 60 mg PO HS@17007/03/22 [History] buPROPion HCL [Wellbutrin SR] 200 mg PO BID@0500,17007/03/22 [History] Propranolol [Inderal] 20 mg PO BID@0500,1700 03/14/23 [History] Gabapentin 300 mg PO Q8H 09/09/23 [History] HYDROcodone/APAP 7.5-325MG [[place] 7.5-325] 1 tab PO Q8H 09/09/23 [History] Ipratropium-Albuterol Nebulize [Duoneb 0.5 mg-3 mg/3 ml Soln] 3 ml INHALATION RT-QID 09/09/23 [History] Magnesium Oxide [Mag-Ox] 400 mg PO BID@0500,1700 09/09/23 [History] Pantoprazole [Protonix] 40 mg PO BID@0500,1700 09/09/23 [History] predniSONE See Taper PO DAILY 09/25/23 [History] Budesonide-Formot 160-4.5 Mcg [Symbicort 160-4.5 Mcg Inhaler] 2 puff INHALATION BID #10.2 gm 09/27/23 [Rx] Doxycycline [Vibramycin] 100 mg PO BID 6 Days #12 cap 09/27/23 [Rx] predniSONE 10 mg PO DIRECTED 12 Days #30 tab 09/27/23 [Rx] Follow up Appointment(s)/Referral(s): Rl Gan MD [Primary Care Provider] - 1-2 days Rosales Acosta MD [STAFF PHYSICIAN] - 10/20/23 Activity/Diet/Wound Care/Special Instructions: Keep your appt for your 10/19 appt at pulmonary office Discharge Disposition: HOME SELF-CARE
== END 2023-09-27 17:58 | disposition home or self-care (01) | DRG 189 ==
LOC: EC 15:18 → 6NMEDSUR 18:01 → OBSVTOIN 18:02 → 6NMEDSUR 20:07
PROVIDERS: ADMIT Hospitalist; ATTEND Hospitalist
DX: J96.21 Acute and chronic respiratory failure with hypoxia (principal); J44.1 Chronic obstructive pulmonary disease with (acute) exacerbation; J96.22 Acute and chronic respiratory failure with hypercapnia; E03.9 Hypothyroidism, unspecified; F31.9 Bipolar disorder, unspecified; K76.9 Liver disease, unspecified; G47.33 Obstructive sleep apnea (adult) (pediatric); E78.5 Hyperlipidemia, unspecified; F41.9 Anxiety disorder, unspecified; K21.9 Gastro-esophageal reflux disease without esophagitis; K58.9 Irritable bowel syndrome, unspecified; G89.29 Other chronic pain; M48.56XS Collapsed vertebra, not elsewhere classified, lumbar region, sequela of fracture; R91.1 Solitary pulmonary nodule; Z79.51 Long term (current) use of inhaled steroids; Z79.890 Hormone replacement therapy; Z79.891 Long term (current) use of opiate analgesic; Z79.899 Other long term (current) drug therapy; Z87.891 Personal history of nicotine dependence; Z85.528 Personal history of other malignant neoplasm of kidney; Z87.01 Personal history of pneumonia (recurrent); Z88.5 Allergy status to narcotic agent; Z88.0 Allergy status to penicillin; Z88.2 Allergy status to sulfonamides; Z88.6 Allergy status to analgesic agent
CPT/HCPCS: 36415; 71045; 71046; 80048; 80053; 83880; 84145; 84484; 85025; 85027; 87636; 93005; 94640; 94760; 96372; 99285

== ENCOUNTER → 2023-12-22 | Outpatient (CLI) | payer MEDICARE, OTHER ==
--- NOTE | 2023-12-24 21:24 | CT ---
EXAMINATION TYPE: CT ChestAbdPelvis wo con DATE OF EXAM: 12/22/2023 INDICATION: Follow up for cancer. Hx of rt side kidney CA, Kidney was removed. COMPARISON: 06/17/2023 CT DLP: 479.8 mGycm CONTRAST: Performed with Oral Contrast TECHNIQUE: Axial images at 5 mm thick sections. Reconstructed images in the coronal plane. Delayed images through the kidneys. FINDINGS: CT CHEST: Portion of the thyroid visualized is normal. Previous anterior left upper lobe infiltrate has resolved. Consolidation in the superior segment righ t lower lobe has significantly improved. Moderate residual remains. Some mild similar consolidation i s in the medial left lower lobe on improved from comparison. There is a 0.4 cm nodule in the periphery of the posterior lateral left upper lobe. Present previousl y No enlarged mediastinal or hilar adenopathy is evident. There is a 0.8 cm node in pretracheal space. This appears smaller than comparison. The ascending aorta diameter at the level of the main pulmonary artery is 4.1 cm. The main pulmonary artery diameter at the bifurcation is 3.[address] ABDOMEN: Liver: Normal Spleen: Normal Pancreas: Normal Adrenal glands: There is mild thickening of the left adrenal gland measuring 1.8 cm inferior to this level is enlarged. Right adrenal gland appears normal Gallbladder: Gallstone is present. Kidneys: No masses are evident. No hydronephrosis is present. Multiple cysts are present on the lef t kidney including an exophytic posterior superior pole renal cyst measuring 4.4 cm a posterior mid l eft kidney cortical renal cyst 3.1 cm anterior lateral and inferior cortical renal cyst measuring 4.2 cm. Right kidney: Surgically absent. No recurrent masses in the renal bed. Aorta: Vascular calcification is within the aorta. Inferior vena cava: Normal. CT PELVIS: There is limitation due to left hip prosthesis beam hardening artifact. Loops of bowel within the abdomen and pelvis are normal. There is bowel limitation due to incompl ete distention or lacking oral contrast. Portions of the exam. Appendix: Not identified. No dilated tubular structure or inflammatory changes evident. Urinary bladder: Normal. Genitourinary structures: Uterus and ovaries are not identified. Osseous structures: No suspicious lytic or sclerotic lesions. Compression deformities at the lower th oracic level are present. Vacuum disc phenomenon is present. Findings are stable from comparison. Lymphadenopathy: Left periaortic lymph node is enlarged measuring 3.0 cm. This is significantly incre ased from prior study. A metastatic lesion should be considered. IMPRESSION: 1. Improving left and right medial posterior lung base consolidations. 2. Enlarging lymph node para-aortic region at the level of the renal veins. 3. Stable mild enlargement of the left adrenal gland. 4. Multiple left renal cysts. [facility], Workstation: [facility], 12/24/2023 9:21 PM
== END | disposition home or self-care (01) ==
LOC: RADCTMAIN 13:57
PROVIDERS: ATTEND Internal Medicine Hematology & Oncology
DX: C64.1 Malignant neoplasm of right kidney, except renal pelvis (principal); N28.1 Cyst of kidney, acquired; E27.8 Other specified disorders of adrenal gland
CPT/HCPCS: 71250; 74176

== ENCOUNTER → 2023-12-22 | Outpatient (CLI) | payer MEDICARE, OTHER ==
--- NOTE | 2023-12-25 14:46 | MM ---
Reason for Exam: Screening (asymptomatic). Last mammogram was performed 2 year(s) and 10 month(s) ago. Patient History: Menarche at age 11. First Full-Term at age 15. Hysterectomy at age 46. Postmenopausal. Patient used Hormonal Contraceptives for 8 years. Maternal cousin had breast cancer, age 48. Risk Values: Jimena 5 year model risk: 1.2%. NCI Lifetime model risk: 4.7%. Prior Study Comparison: 09/13/2017 Bilateral Screening Mammogram, [facility]. 10/01/2018 Bilateral Screening Mammogram, [facility]. 02/25/2021 Bilateral Screening Mammogram, [facility]. Tissue Density: There are scattered areas of fibroglandular density. Findings: Analyzed By CAD. There is no suspicious group of microcalcifications or new suspicious mass in either breast. Overall Assessment: Negative, BI-RAD 1 Management: Screening Mammogram of both breasts in 1 year. . Patient should continue monthly self-breast exams. A clinical breast exam by your physician is recommended on an annual basis. This exam should not preclude additional follow-up of suspicious palpable abnormalities. Note on Jimena scores and lifetime risk: 1. A Jimena score greater than 3% is considered moderate risk. If this is the case, consider specialist referral to assess eligibility for a risk reducing agent. 2. If overall lifetime risk for the development of breast cancer is 20% or higher, the patient may qualify for future screening with alternating mammogram and breast MRI. [facility], , 12/25/2023 2:43 PM. Electronically signed and approved by: Brennan Dempsey M.D. Radiologis
== END | disposition home or self-care (01) ==
LOC: RADMAMWWP 15:50
PROVIDERS: ATTEND General Practice
DX: Z12.31 Encounter for screening mammogram for malignant neoplasm of breast (principal)
CPT/HCPCS: 77063; 77067

== ENCOUNTER 2024-04-17 18:22 | Emergency (ER) | payer MEDICARE, OTHER ==
[2024-04-17 18:26] VITALS: TEMP 97.8
--- NOTE | 2024-04-17 19:14 | ED ---
Recheck HPI - General Chief Complaint: Recheck/Abnormal Lab/Rx Stated Complaint: heart issue Time Seen by Provider: 04/17/24 18:38 Source: patient, EMS, RN notes reviewed Mode of arrival: EMS Limitations: no limitations - History of Present Illness Initial Comments: This is a 63-year-old female with history of asthma, COPD and O2 dependence presenting via EMS for elevated heart rate (130s) x 1 day. Patient endorses checking vital signs at home when she noticed her heart rate was elevated, causing concern/anxiety before calling EMS. Patient denies associated chest pain, SOB, dizziness/lightheadedness, palpitations, ALOC. States she has been normal pulse oximetry in the low 90s. Onset/Timin -: days(s) - Related Data Home Medications Medication Instructions Recorded Confirmed Ziprasidone [Geodon] 40 mg PO DAILY@0500 02/07/14 04/17/24 Albuterol Inhaler [Ventolin Hfa 2 puff INHALATION RT-Q6H PRN 11/07/17 04/17/24 Inhaler] Atorvastatin Calcium [Lipitor] 40 mg PO HS@1700 07/03/22 04/17/24 Levothyroxine Sodium [Synthroid] 112 mcg PO DAILY@0500 07/03/22 04/17/24 Ziprasidone [Geodon] 60 mg PO HS@1700 07/03/22 04/17/24 buPROPion HCL [Wellbutrin SR] 200 mg PO BID@0500,1700 07/03/22 04/17/24 Propranolol [Inderal] 20 mg PO BID@0500,1700 03/14/23 04/17/24 HYDROcodone/APAP 7.5-325MG [[place] 1 tab PO Q8H PRN 09/09/23 04/17/24 7.5-325] Ipratropium-Albuterol Nebulize 3 ml INHALATION RT-QID PRN 09/09/23 04/17/24 [Duoneb 0.5 mg-3 mg/3 ml Soln] Magnesium Oxide [Mag-Ox] 400 mg PO BID@0500,1700 09/09/23 04/17/24 Pantoprazole [Protonix] 40 mg PO DAILY@0500 09/09/23 04/17/24 ALPRAZolam [Xanax] 0.5 mg PO DAILY PRN 04/17/24 04/17/24 Budesonide 0.5 mg INHALATION RT-BID 04/17/24 04/17/24 Cyanocobalamin (Vitamin B-12) 1,000 mcg PO BID@05,17 04/17/24 04/17/24 [Vitamin B-12] Multivitamins, Thera [Multivitamin 1 tab PO DAILY@0500 04/17/24 04/17/24 (formulary)] Sodium Bicarbonate Tab 650 mg PO BID@,17 04/17/24 04/17/24 cloNIDine HCL [Catapres] 0.1 mg PO TID PRN 04/17/24 04/17/24 hydrALAZINE HCL [Apresoline] 10 mg PO TID PRN 04/17/24 04/17/24 Allergies Allergy/AdvReac Type Severity Reaction Status Date / Time codeine Allergy Rash/Hives Verified 04/17/24 19:01 doxycycline Allergy Rash/Hives Verified 04/17/24 19:01 Penicillins Allergy Rash/Hives Verified 04/17/24 19:01 on feet Sulfa (Sulfonamide Allergy Rash/Hives Verified 04/17/24 19:01 Antibiotics) ibuprofen [From Motrin] AdvReac Nausea & Verified 04/17/24 19:01 Vomiting Review of Systems ROS Statement: Those systems with pertinent positive or pertinent negative responses have been documented in the HPI. ROS Other: All systems not noted in ROS Statement are negative. Past Medical History Past Medical History: Asthma, COPD, GERD/Reflux, Hyperlipidemia, Liver Disease, Sleep Apnea/CPAP/BIPAP Additional Past Medical History / Comment(s): hx internal hemorrhoid, kidney CA with right nephrectomy, CPAP use, colitis, IBS History of Any Multi-Drug Resistant Organisms: None Reported Past Surgical History: Hysterectomy Additional Past Surgical History / Comment(s): right nephrectomy 04/11/22 Past Anesthesia/Blood Transfusion Reactions: No Reported Reaction Past Psychological History: Anxiety, Bipolar, Depression Smoking Status: Former smoker Past Alcohol Use History: None Reported Past Drug Use History: None Reported - Past Family History Father Family Medical History: COPD, Hyperlipidemia, Hypertension Mother Family Medical History: COPD, Hyperlipidemia, Hypertension General Exam Limitations: no limitations General appearance: alert, in no apparent distress Head exam: Present: atraumatic, normocephalic, normal inspection Eye exam: Present: normal appearance, PERRL, EOMI. Absent: scleral icterus, conjunctival injection, periorbital swelling ENT exam: Present: normal exam, mucous membranes moist Neck exam: Present: normal inspection. Absent: tenderness, meningismus, lymphadenopathy Respiratory exam: Present: wheezes, rhonchi, decreased breath sounds, prolonged expiratory. Absent: respiratory distress, rales, stridor Cardiovascular Exam: Present: regular rate, normal rhythm, normal heart sounds. Absent: systolic murmur, diastolic murmur, rubs, gallop, clicks GI/Abdominal exam: Present: soft, normal bowel sounds. Absent: distended, tenderness, guarding, rebound, rigid Extremities exam: Present: normal inspection, full ROM, normal capillary refill, other (Bilateral posterior tibialis pulse +2). Absent: tenderness, pedal edema, joint swelling, calf tenderness Back exam: Present: normal inspection Neurological exam: Present: alert, oriented X3, CN II-XII intact Psychiatric exam: Present: normal affect, normal mood Skin exam: Present: warm, dry, intact, normal color. Absent: rash Course Vital Signs 04/17/24 04/17/24 04/17/24 18:23 20:50 21:10 Temperature 97.8 F Pulse Rate 97 81 81 Respiratory 18 18 20 Rate Blood Pressure 143/83 114/81 O2 Sat by Pulse 92 L 92 L Oximetry Medical Decision Making - Medical Decision Making Was pt. sent in by a medical professional or institution (SHABANA Mcneil, TECHNICAL SERVICES REP, urgent care, hospital, or residential...) When possible be specific @ -[No] Did you speak to anyone other than the patient for history (EMS, parent, family, police, friend...)? What history was obtained from this source @ -[No] Did you review nursing and triage notes (agree or disagree)? Why? @ -[I reviewed and agree with nursing and triage notes] Were old charts reviewed (outside hosp., previous admission, EMS record, old EKG, old radiological studies, urgent care reports/EKG's, residential records)? Report findings @ -[No old charts were reviewed] Differential Diagnosis (chest pain, altered mental status, abdominal pain women, abdominal pain men, vaginal bleeding, weakness, fever, dyspnea, syncope, headache, dizziness, GI bleed, back pain, seizure, CVA, palpatations, mental health, musculoskeletal)? @ -Differential Dyspnea: Coronary syndrome, arrhythmia, tamponade, asthma, COPD, pulmonary embolism, pneumonia, pneumothorax, pulmonary effusion, anaphylaxis, diabetic ketoacidosis, flailed chest, pulmonary contusion, diaphragmatic rupture, anemia, neuromuscular, this is not meant to be an all-inclusive list. EKG interpreted by me (3pts min.). @ -Sinus rhythm with LAD and left anterior fascicular block. Negative ST de viation or T wave inversion. Ventricular rate 81 bpm, NUPUR 176 ms, QRS duration 94 ms, QTc 410 ms. X-rays interpreted by me (1pt min.). @ -[None done] CT interpreted by me (1pt min.). @ -[None done] U/S interpreted by me (1pt. min.). @ -[None done] What testing was considered but not performed or refused? (CT, X-rays, U/S, labs)? Why? @ -[None] What meds were considered but not given or refused? Why? @ -[None] Did you discuss the management of the patient with other professionals (professionals i.e. , PA, TECHNICAL SERVICES REP, lab, RT, psych nurse, protective services social worker, canine enforcement officer, teacher, staff weapons officer, binder caser)? Give summary @ -[No] Was smoking cessation discussed for >3mins.? @ -[No] Was critical care preformed (if so, how long)? @ -[No] Were there social determinants of health that impacted care today? How? (Homelessness, low income, unemployed, alcoholism, drug addiction, transportation, low edu. Level, literacy, decrease access to med. care, care home, rehab)? @ -[No] Was there de-escalation of care discussed even if they declined (Discuss DNR or withdrawal of care, Hospice)? DNR status @ -[No] What co-morbidities impacted this encounter? (DM, HTN, Smoking, COPD, CAD, Cancer, CVA, ARF, Chemo, Hep., AIDS, mental health diagnosis, sleep apnea, morbid obesity)? @ -COPD, asthma Was patient admitted / discharged? Hospital course, mention meds given and route, prescriptions, significant lab abnormalities, going to OR and other pertinent info. @ -[hospital course] Undiagnosed new problem with uncertain prognosis? @ -[No] Drug Therapy requiring intensive monitoring for toxicity (Heparin, Nitro, Ins ulin, Cardizem)? @ -[No] Were any procedures done? @ -[No] Diagnosis/symptom? @ -[default] Acute, or Chronic, or Acute on Chronic? @ -Acute Uncomplicated (without systemic symptoms) or Complicated (systemic symptoms)? @ -Complicated Side effects of treatment? @ -[No] Exacerbation, Progression, or Severe Exacerbation? @ -[No] Poses a threat to life or bodily function? How? (Chest pain, [place], [place], pneumonia, PE, COPD, DKA, ARF, appy, cholecystitis, CVA, Diverticulitis, Homicidal, Suicidal, threat to staff... and all critical care pts) @ -[No] - Lab Data Result diagrams: 04/17/24 19:22 04/17/24 19:22 Lab Results 04/17/24 04/17/24 04/17/24 Range/Units 19:22 19:22 19:22 WBC 12.1 H (3.8-10.6) k/uL RBC 4.50 (3.80-5.40) m/uL Hgb 13.6 (11.4-16.0) gm/dL Hct 43.6 (34.0-46.0) % MCV 96.9 (80.0-100.0) fL MCH 30.3 (25.0-35.0) pg MCHC 31.3 (31.0-37.0) g/dL RDW 12.8 (11.5-15.5) % Plt Count 174 (150-450) k/uL MPV 9.2 Neutrophils % 81 % Lymphocytes % 12 % Monocytes % 4 % Eosinophils % 2 % Basophils % 0 % Neutrophils # 9.9 H (1.3-7.7) k/uL Lymphocytes # 1.4 (1.0-4.8) k/uL Monocytes # 0.5 (0-1.0) k/uL Eosinophils # 0.2 (0-0.7) k/uL Basophils # 0.0 (0-0.2) k/uL PT 10.5 (10.0-12.5) sec INR 0.9 (<1.2) APTT 20.6 L (22.0-30.0) sec VBG pH (7.31-7.41) VBG pCO2 (37-51) mmHg VBG HCO3 (24-28) mmol/L Sodium (137-145) mmol/L Potassium (3.5-5.1) mmol/L Chloride (98-107) mmol/L Carbon Dioxide (22-30) mmol/L Anion Gap mmol/L BUN (7-17) mg/dL Creatinine (0.52-1.04) mg/dL Est GFR (CKD-EPI)AfAm (>60 ml/min/1.73 sqM) Est GFR (CKD-EPI)NonAf (>60 ml/min/1.73 sqM) Glucose (74-99) mg/dL Calcium (8.4-10.2) mg/dL Total Bilirubin (0.2-1.3) mg/dL AST (14-36) U/L ALT (4-34) U/L Alkaline Phosphatase (38-126) U/L Troponin I (0.000-0.034) ng/mL Total Protein (6.3-8.2) g/dL Albumin (3.5-5.0) g/dL Influenza Type A (PCR) Not Detected (Not Detectd) Influenza Type B (PCR) Not Detected (Not Detectd) RSV (PCR) Not Detected (Not Detectd) SARS-CoV-2 (PCR) Not Detected (Not Detectd) 04/17/24 04/17/24 04/17/24 Range/Units 19:22 19:22 19:22 WBC (3.8-10.6) k/uL RBC (3.80-5.40) m/uL Hgb (11.4-16.0) gm/dL Hct (34.0-46.0) % MCV (80.0-100.0) fL MCH (25.0-35.0) pg MCHC (31.0-37.0) g/dL RDW (11.5-15.5) % Plt Count (150-450) k/uL MPV Neutrophils % % Lymphocytes % % Monocytes % % Eosinophils % % Basophils % % Neutrophils # (1.3-7.7) k/uL Lymphocytes # (1.0-4.8) k/uL Monocytes # (0-1.0) k/uL Eosinophils # (0-0.7) k/uL Basophils # (0-0.2) k/uL PT (10.0-12.5) sec INR (<1.2) APTT (22.0-30.0) sec VBG pH 7.45 H (7.31-7.41) VBG pCO2 43 (37-51) mmHg VBG HCO3 30 H (24-28) mmol/L Sodium 136 L (137-145) mmol/L Potassium 4.8 (3.5-5.1) mmol/L Chloride 103 (98-107) mmol/L Carbon Dioxide 28 (22-30) mmol/L Anion Gap 5 mmol/L BUN 37 H (7-17) mg/dL Creatinine 1.28 H (0.52-1.04) mg/dL Est GFR (CKD-EPI)AfAm 51 (>60 ml/min/1.73 sqM) Est GFR (CKD-EPI)NonAf 45 (>60 ml/min/1.73 sqM) Glucose 96 (74-99) mg/dL Calcium 8.7 (8.4-10.2) mg/dL Total Bilirubin 0.6 (0.2-1.3) mg/dL AST 24 (14-36) U/L ALT 24 (4-34) U/L Alkaline Phosphatase 81 (38-126) U/L Troponin I <0.012 (0.000-0.034) ng/mL Total Protein 6.1 L (6.3-8.2) g/dL Albumin 3.6 (3.5-5.0) g/dL Influenza Type A (PCR) (Not Detectd) Influenza Type B (PCR) (Not Detectd) RSV (PCR) (Not Detectd) SARS-CoV-2 (PCR) (Not Detectd) Disposition Clinical Impression: Tachycardia Disposition: HOME SELF-CARE Condition: Good Is patient prescribed a controlled substance at d/c from ED?: No Referrals: None,Stated [Primary Care Provider] - 1-2 days Time of Disposition: 21:16
[2024-04-17 19:34] LABS: VBG PH 7.45 (7.31-7.41)
[2024-04-17 19:35] LABS: Basophils % (A) 0 %; Eosinophils # (A) 0.2 k/uL (0-0.7); Eosinophils % (A) 2 %; HCT 43.6 % (34.0-46.0); HGB 13.6 gm/dL (11.4-16.0); Lymphocytes # (A) 1.4 k/uL (1.0-4.8); Lymphocytes % (A) 12 %; MCH 30.3 pg (25.0-35.0); MCHC 31.3 g/dL (31.0-37.0); MCV 96.9 fL (80.0-100.0); Mean Platelet Volume 9.2; Monocytes # (A) 0.5 k/uL (0-1.0); Monocytes % (A) 4 %; Neutrophils # (A) 9.9 k/uL (1.3-7.7); Neutrophils % (A) 81 %; Platelet Count 174 k/uL (150-450); RDW 12.8 % (11.5-15.5); WBC 12.1 k/uL (3.8-10.6)
[2024-04-17 20:09] LABS: Influenza A Not Detected (Not Detectd); Influenza B Not Detected (Not Detectd); RSV Not Detected (Not Detectd)
[2024-04-17 20:17] LABS: INR 0.9 (<1.2); Prothrombin Time 10.5 sec (10.0-12.5)
[2024-04-17 20:25] LABS: Partial Thromboplastin Time 20.6 sec (22.0-30.0)
--- NOTE | 2024-04-17 20:33 | XR ---
EXAMINATION TYPE: XR chest 2V DATE OF EXAM: 04/17/2024 8:19 PM COMPARISON: Chest radiographs from 09/27/2023. CLINICAL INDICATION: Female, 63 years old with history of Hypoxia; TECHNIQUE: XR chest 2V Frontal and lateral views of the chest. FINDINGS: Lungs/Pleura: There is no evidence of pleural effusion, focal consolidation, or pneumothorax. Pulmonary vascularity: Unremarkable. Heart/mediastinum: Cardiomediastinal silhouette is unremarkable. Musculoskeletal: No acute osseous pathology. IMPRESSION: Stable exam, No acute cardiopulmonary disease/process. [facility], , 04/17/2024 8:30 PM
[2024-04-17 20:42] LABS: ALT 24 U/L (4-34); AST 24 U/L (14-36); African American GFR (CKD) 51 (>60 ml/min/1.73 sqM); Albumin 3.6 g/dL (3.5-5.0); Alkaline Phosphatase 81 U/L (38-126); Anion Gap 5 mmol/L; Blood Urea Nitrogen 37 mg/dL (7-17); Calcium 8.7 mg/dL (8.4-10.2); Carbon Dioxide 28 mmol/L (22-30); Chloride 103 mmol/L (98-107); Glucose 96 mg/dL (74-99); Non-African American GFR(CKD) 45 (>60 ml/min/1.73 sqM); Potassium 4.8 mmol/L (3.5-5.1); Sodium 136 mmol/L (137-145); Total Bilirubin 0.6 mg/dL (0.2-1.3); Total Protein 6.1 g/dL (6.3-8.2)
[2024-04-17] MEDS: methylPREDNISolone SOD SUCCI 125 MG/2 ML VIAL IV STA (20:47)
[2024-04-17] MEDS: IPRATROPIUM-ALBUTEROL 3 ML NEB INHALATION STA (21:10)
[2024-04-17 22:01] VITALS: BP 124/93; PULSE 82; RESP 18
== END 2024-04-17 22:01 | disposition home or self-care (01) ==
LOC: EC 18:22
DX: R00.0 Tachycardia, unspecified (principal); J44.89 Other specified chronic obstructive pulmonary disease; Z88.2 Allergy status to sulfonamides; Z88.0 Allergy status to penicillin; Z88.6 Allergy status to analgesic agent; Z90.5 Acquired absence of kidney; Z88.1 Allergy status to other antibiotic agents; Z87.891 Personal history of nicotine dependence
CPT/HCPCS: 36415; 94640; 93005; 80053; 82803; 84484; 85025; 85610; 85730; 87636; 71046; 99285; 96374; J2919

== ENCOUNTER 2024-06-17 03:18 | Inpatient (IN) | payer MEDICARE, OTHER ==
[2024-06-17] MEDS: SODIUM CHLORIDE 0.9% 1,000 ML IV ONE (03:58)
[2024-06-17] MEDS: ALBUTEROL NEBULIZED 2.5 MG/3 ML INHALATION SCH (04:02)
[2024-06-17] MEDS: IPRATROPIUM 0.5 MG/2.5 ML NEBU INHALATION STA ×2 (04:02)
--- NOTE | 2024-06-17 04:02 | ED ---
General Adult HPI - General Chief complaint: Shortness of Breath Stated complaint: Difficulty breathing Time Seen by Provider: 06/17/24 03:37 Source: patient, EMS Mode of arrival: EMS Limitations: no limitations - History of Present Illness Initial comments: Patient is a 63-year-old female past medical history of COPD, hypertension presenting today for shortness of breath. States she typically wears 3.5 L O2 at home, with an O2 sat usually around 90%. States that she has been feeling fine up until last night when she woke up with a pulse ox of 85%. Despite using her home oxygen she was unable to get her pulse ox above this. Has an albuterol inhaler however states she is unable to use it because she cannot get a deep enough breath and does not have a spacer. No recent antibiotics, no recent steroids. Denies chest pain, hemoptysis, increased sputum production, lightheadedness, dizziness, palpitations,abdominal pain, nausea vomiting or di arrhea or lower extremity swelling. - Related Data Home Medications Medication Instructions Recorded Confirmed Ziprasidone [Geodon] 40 mg PO DAILY@0500 02/07/14 06/17/24 Albuterol Inhaler [Ventolin Hfa 2 puff INHALATION RT-Q6H PRN 11/07/17 06/17/24 Inhaler] Atorvastatin Calcium [Lipitor] 40 mg PO HS@1700 07/03/22 06/17/24 Levothyroxine Sodium [Synthroid] 112 mcg PO DAILY@0500 07/03/22 06/17/24 Ziprasidone [Geodon] 60 mg PO HS@1700 07/03/22 06/17/24 buPROPion HCL [Wellbutrin SR] 200 mg PO BID@0500,1700 07/03/22 06/17/24 Propranolol [Inderal] 20 mg PO BID@0500,1700 03/14/23 06/17/24 HYDROcodone/APAP 7.5-325MG [[place] 1 tab PO Q8H PRN 09/09/23 06/17/24 7.5-325] Ipratropium-Albuterol Nebulize 3 ml INHALATION RT-QID PRN 09/09/23 06/17/24 [Duoneb 0.5 mg-3 mg/3 ml Soln] Magnesium Oxide [Mag-Ox] 400 mg PO DAILY@0500 09/09/23 06/17/24 Pantoprazole [Protonix] 40 mg PO DAILY@0500 09/09/23 06/17/24 ALPRAZolam [Xanax] 0.5 mg PO DAILY PRN 04/17/24 06/17/24 Budesonide 0.5 mg INHALATION RT-BID@0500,1700 04/17/24 06/17/24 Multivitamins, Thera [Multivitamin 1 tab PO DAILY@0500 04/17/24 06/17/24 (formulary)] cloNIDine HCL [Catapres] 0.1 mg PO TID@0500,1100,1700 04/17/24 06/17/24 hydrALAZINE HCL [Apresoline] 10 mg PO TID@0500,1100,1700 04/17/24 06/17/24 Allergies Allergy/AdvReac Type Severity Reaction Status Date / Time codeine Allergy Rash/Hives Verified 06/17/24 07:17 doxycycline Allergy Rash/Hives Verified 06/17/24 07:17 Penicillins Allergy Rash/Hives Verified 06/17/24 07:17 on feet Sulfa (Sulfonamide Allergy Rash/Hives Verified 06/17/24 07:17 Antibiotics) ibuprofen [From Motrin] AdvReac Nausea & Verified 06/17/24 07:17 Vomiting Review of Systems ROS Statement: Those systems with pertinent positive or pertinent negative responses have been documented in the HPI. ROS Other: All systems not noted in ROS Statement are negative. Past Medical History Past Medical History: Asthma, COPD, GERD/Reflux, Hyperlipidemia, Liver Disease, Sleep Apnea/CPAP/BIPAP Additional Past Medical History / Comment(s): hx internal hemorrhoid, kidney CA with right nephrectomy, CPAP use, colitis, IBS History of Any Multi-Drug Resistant Organisms: None Reported Past Surgical History: Hysterectomy Additional Past Surgical History / Comment(s): right nephrectomy 04/11/22 Past Anesthesia/Blood Transfusion Reactions: No Reported Reaction Past Psychological History: Anxiety, Bipolar, Depression Smoking Status: Former smoker Past Alcohol Use History: None Reported Past Drug Use History: None Reported - Past Family History Father Family Medical History: COPD, Hyperlipidemia, Hypertension Mother Family Medical History: COPD, Hyperlipidemia, Hypertension General Exam - General Exam Comments Initial Comments: PE: CONSTITUTIONAL: No apparent distress, chronically ill appearing though nontoxic SKIN: Warm, dry, no jaundice, hives or petechiae EYES: Pupils are equally round, extraocular movements intact without nystagmus, clear conjunctiva, non-icteric sclera HENT: Normocephalic, atraumatic, moist mucus membranes, oropharynx clear without exudates NECK: , Full range of motion, normal appearance PULMONARY: Diffuse wheezes throughout clear to auscultation without rhonchi, or rales, normal excursion, no accessory muscle use and no stridor CARDIOVASCULAR: Tachycardic egular rate, rhythm, normal S1 and S2. No appreciated murmurs, rubs or gallops. Strong radial pulses with intact distal perfusion. No lower extremity edema GASTROINTESTINAL: Soft, active bowel sounds throughout, non-tender, non- distended, no palpable masses, no rebound or guarding. No hepatosplenomegaly MUSCULOSKELETAL: Extremities have no gross deformity, no edema, redness, or swelling. No calf swelling NEUROLOGIC:_a/o x 3, GCS 15, normal mentation and speech. Moves all extremities x 4 without motor or sensory deficit PSYCHIATRIC:_normal mood and affect, thought process is clear and linear Limitations: no limitations Course Vital Signs 06/17/24 06/17/24 06/17/24 03:19 03:22 03:26 Temperature 97.9 F Pulse Rate 120 H Respiratory 24 Rate Blood Pressure 152/71 O2 Sat by Pulse 80 L Oximetry Fraction of 100 100 Inspired Oxygen (FIO2) 06/17/24 06/17/24 06/17/24 03:32 03:36 03:58 Temperature Pulse Rate Respiratory 29 H Rate Blood Pressure O2 Sat by Pulse 90 L Oximetry Fraction of 80 Inspired Oxygen (FIO2) 06/17/24 06/17/24 06/17/24 04:05 04:12 04:28 Temperature Pulse Rate 113 H 110 H 108 H Respiratory 18 18 Rate Blood Pressure 134/91 130/83 O2 Sat by Pulse 95 94 L Oximetry Fraction of Inspired Oxygen (FIO2) 06/17/24 06/17/24 06/17/24 04:31 05:05 05:13 Temperature Pulse Rate 112 H 113 H Respiratory Rate Blood Pressure O2 Sat by Pulse Oximetry Fraction of 40 Inspired Oxygen (FIO2) 06/17/24 06/17/24 06/17/24 05:33 05:37 06:50 Temperature Pulse Rate 118 H 116 H Respiratory 20 18 Rate Blood Pressure 134/62 136/79 O2 Sat by Pulse 89 L 92 L Oximetry Fraction of 70 Inspired Oxygen (FIO2) 06/17/24 06/17/24 06/17/24 08:20 08:41 08:43 Temperature Pulse Rate 117 H 114 H Respiratory 36 H Rate Blood Pressure 134/69 O2 Sat by Pulse 90 L Oximetry Fraction of 60 Inspired Oxygen (FIO2) 06/17/24 06/17/24 06/17/24 08:58 09:19 10:03 Temperature Pulse Rate 116 H 124 H Respiratory 30 H Rate Blood Pressure 140/73 O2 Sat by Pulse 91 L 90 L Oximetry Fraction of Inspired Oxygen (FIO2) 06/17/24 06/17/24 06/17/24 11:42 12:18 12:30 Temperature Pulse Rate 113 H 114 H 120 H Respiratory 24 Rate Blood Pressure 130/74 O2 Sat by Pulse 90 L Oximetry Fraction of Inspired Oxygen (FIO2) 06/17/24 06/17/24 06/17/24 12:31 16:18 16:23 Temperature Pulse Rate 114 H 113 H Respiratory 20 Rate Blood Pressure 131/79 O2 Sat by Pulse 90 L 93 L Oximetry Fraction of Inspired Oxygen (FIO2) 06/17/24 06/17/24 06/17/24 16:28 16:29 18:18 Temperature 97.7 F Pulse Rate 116 H 89 Respiratory 24 Rate Blood Pressure 104/65 O2 Sat by Pulse 92 L 93 L Oximetry Fraction of Inspired Oxygen (FIO2) EKG Findings - EKG Comments: EKG Findings:: Sinus tachycardia, rate 116 bpm FL interval 179 ms QT/QTc 335/404 ms, left axis deviation, no significant ST elevations or depressions, T wave inversion lead aVR no STEMI Medical Decision Making - Medical Decision Making Was pt. sent in by a medical professional or institution (, PA, [employer]ILL [employer]NER COMPOUNDER, urgent care, hospital, or skilled nursing...) When possible be specific @ -No Did you speak to anyone other than the patient for history (EMS, parent, family, police, friend...)? What history was obtained from this source @ -No Did you review nursing and triage notes (agree or disagree)? Why? @ -I reviewed and agree with nursing and triage notes Were old charts reviewed (outside hosp., previous admission, EMS record, old EKG, old radiological studies, urgent care reports/EKG's, skilled nursing records)? Report findings @ -Medical records reviewed-Reviewed CT chest abdomen pelvis that was performed in December 2023, it showed left and right posterior lung base consolidations, enlarging lymph nodes in the periaortic region mild enlargement of the left adrenal gland and multiple left renal cysts Differential Diagnosis (chest pain, altered mental status, abdominal pain women, abdominal pain men, vaginal bleeding, weakness, fever, dyspnea, syncope, headache, dizziness, GI bleed, back pain, seizure, CVA, palpatations, mental health, musculoskeletal)? Differential Dyspnea: Coronary syndrome, arrhythmia, tamponade, asthma, COPD, pulmonary embolism, pneumonia, pneumothorax, pulmonary effusion, anaphylaxis, diabetic ketoacidosis, flailed chest, pulmonary contusion, diaphragmatic rupture, anemia, neuromuscular, this is not meant to be an all-inclusive list. PE was considered however patient has a known history of COPD and has history and physical exam consistent with the OPD exacerbation therefore at this point I do not feel further workup is indicated for pulmonary embolism EKG interpreted by me (3pts min.). @ -As above X-rays interpreted by me (1pt min.). Personally reviewed chest x-ray, appears to show borderline cardiomegaly with questionable right lower lung opacity, radiologist impression reads small amount of linear opacities over the left lower lung zone slightly increased likely atelectasis and less likely pneumonia, patient does not have focal breath sounds over this region, I agree with radiologist interpretation that this is most likely atelectasis CT interpreted by me (1pt min.). @ -None done U/S interpreted by me (1pt. min.). @ -None done What testing was considered but not performed or refused? (CT, X-rays, U/S, labs)? Why? @ -None What meds were considered but not given or refused? Why? @ -None Did you discuss the management of the patient with other professionals (chloé saeed i.e. , PA, [employer]ER, lab, RT, psych nurse, renal social worker, resistor winder, teacher, infantry officer, case loader operator)? Give summary @ -No Was smoking cessation discussed for >3mins.? @ -No Was critical care preformed (if so, how long)? @Yes, 35 minutes Were there social determinants of health that impacted care today? How? (Homelessness, low income, unemployed, alcoholism, drug addiction, transportation, low edu. Level, literacy, decrease access to med. care, care home, rehab)? @ -No Was there de-escalation of care discussed even if they declined (Discuss DNR or withdrawal of care, Hospice)? @ -No What co-morbidities impacted this encounter? (DM, HTN, Smoking, COPD, CAD, Cancer, CVA, ARF, Chemo, Hep., AIDS, mental health diagnosis, sleep apnea, morbid obesity)? @COPD, hypertension Was patient admitted / discharged? Hospital course, mention meds given and route, prescriptions, significant lab abnormalities, going to OR and other pertinent info. @Admission - this is a pleasant 63-year-old female with presenting for difficulty in breathing. On 3.5 to 4 L home oxygen. Initially patient presents with DuoNeb ongoing. On my assessment she has been placed on BiPAP and is comfortable appearing with good coloring. She has diffuse wheezes bilaterally. Otherwise she appears comfortable no cyanosis, no accessory muscle use or increased work of breathing. No lower extremity edema. I discussed with patient plan for nebulizers, steroids.plan for comprehensive, chest x-ray, anticipate admission. Patient agreeable with plan of care. We did attempt to wean patient off of BiPAP however when FiO2 was weaned to 40% pulse ox went down to 85%. I progressively increased FiO2 until pulse ox jonathan to 88 to 90%, at this point FiO2 was 70%. Patient will be maintained on BiPAP. Breath sounds are improved and patient continues to appear comfortable. Case discussed with Dr. Ordonez who kindly accepted patient for admission. Undiagnosed new problem with uncertain prognosis? @ -No Drug Therapy requiring intensive monitoring for toxicity (Heparin, Nitro, Insulin, Cardizem)? @ -No Were any procedures done? @ -No Diagnosis/symptom? @COPD exacerbation, acute hypoxic respiratory failure Acute, or Chronic, or Acute on Chronic? Acute Uncomplicated (without systemic symptoms) or Complicated (systemic symptoms)? @Complicated Side effects of treatment? @ -No Exacerbation, Progression, or Severe Exacerbation? @ -No Poses a threat to life or bodily function? How? (Chest pain, USA, CT, pneumonia, PE, COPD, DKA, ARF, appy, cholecystitis, CVA, Diverticulitis, Homicidal, Suicidal, threat to staff... and all critical care pts) @Yes if left unaddressed would result in fulminant respiratory failure and - Lab Data Result diagrams: 06/17/24 03:50 06/17/24 03:50 Lab Results 06/17/24 06/17/24 06/17/24 Range/Units 03:50 03:50 03:50 WBC 14.7 H (3.8-10.6) k/uL RBC 4.90 (3.80-5.40) m/uL Hgb 14.8 (11.4-16.0) gm/dL Hct 48.4 H (34.0-46.0) % MCV 98.7 (80.0-100.0) fL MCH 30.3 (25.0-35.0) pg MCHC 30.7 L (31.0-37.0) g/dL RDW 13.3 (11.5-15.5) % Plt Count 225 (150-450) k/uL MPV 9.6 Neutrophils % 71 % Lymphocytes % 18 % Monocytes % 7 % Eosinophils % 3 % Basophils % 1 % Neutrophils # 10.4 H (1.3-7.7) k/uL Lymphocytes # 2.6 (1.0-4.8) k/uL Monocytes # 1.0 (0-1.0) k/uL Eosinophils # 0.5 (0-0.7) k/uL Basophils # 0.1 (0-0.2) k/uL Hypochromasia Slight PT 10.8 (10.0-12.5) sec INR 1.0 (<1.2) APTT 24.3 (22.0-30.0) sec Sodium 140 (137-145) mmol/L Potassium 4.4 (3.5-5.1) mmol/L Chloride 97 L (98-107) mmol/L Carbon Dioxide 36 H (22-30) mmol/L Anion Gap 7 mmol/L BUN 21 H (7-17) mg/dL Creatinine 1.24 H (0.52-1.04) mg/dL Est GFR (CKD-EPI)AfAm 53 (>60 ml/min/1.73 sqM) Est GFR (CKD-EPI)NonAf 46 (>60 ml/min/1.73 sqM) Glucose 108 H (74-99) mg/dL Calcium 9.5 (8.4-10.2) mg/dL Magnesium 1.8 (1.6-2.3) mg/dL Total Bilirubin 0.5 (0.2-1.3) mg/dL AST 24 (14-36) U/L ALT 16 (4-34) U/L Alkaline Phosphatase 86 (38-126) U/L Troponin I (0.000-0.034) ng/mL NT-Pro-B Natriuret Pep 45 pg/mL Total Protein 6.8 (6.3-8.2) g/dL Albumin 4.0 (3.5-5.0) g/dL Procalcitonin (0.02-0.50) ng/mL 06/17/24 06/17/24 Range/Units 03:50 03:50 WBC (3.8-10.6) k/uL RBC (3.80-5.40) m/uL Hgb (11.4-16.0) gm/dL Hct (34.0-46.0) % MCV (80.0-100.0) fL MCH (25.0-35.0) pg MCHC (31.0-37.0) g/dL RDW (11.5-15.5) % Plt Count (150-450) k/uL MPV Neutrophils % % Lymphocytes % % Monocytes % % Eosinophils % % Basophils % % Neutrophils # (1.3-7.7) k/uL Lymphocytes # (1.0-4.8) k/uL Monocytes # (0-1.0) k/uL Eosinophils # (0-0.7) k/uL Basophils # (0-0.2) k/uL Hypochromasia PT (10.0-12.5) sec INR (<1.2) APTT (22.0-30.0) sec Sodium (137-145) mmol/L Potassium (3.5-5.1) mmol/L Chloride (98-107) mmol/L Carbon Dioxide (22-30) mmol/L Anion Gap mmol/L BUN (7-17) mg/dL Creatinine (0.52-1.04) mg/dL Est GFR (CKD-EPI)AfAm (>60 ml/min/1.73 sqM) Est GFR (CKD-EPI)NonAf (>60 ml/min/1.73 sqM) Glucose (74-99) mg/dL Calcium (8.4-10.2) mg/dL Magnesium (1.6-2.3) mg/dL Total Bilirubin (0.2-1.3) mg/dL AST (14-36) U/L ALT (4-34) U/L Alkaline Phosphatase (38-126) U/L Troponin I <0.012 (0.000-0.034) ng/mL NT-Pro-B Natriuret Pep pg/mL Total Protein (6.3-8.2) g/dL Albumin (3.5-5.0) g/dL Procalcitonin 0.03 (0.02-0.50) ng/mL Disposition Clinical Impression: Acute hypoxic respiratory failure, COPD exacerbation Disposition: ADMITTED IP TO THIS HOSP Condition: Stable
[2024-06-17 04:04] LABS: Basophils # (A) 0.1 k/uL (0-0.2); Basophils % (A) 1 %; Eosinophils # (A) 0.5 k/uL (0-0.7); Eosinophils % (A) 3 %; HCT 48.4 % (34.0-46.0); HGB 14.8 gm/dL (11.4-16.0); Hypochromasia Slight; Lymphocytes # (A) 2.6 k/uL (1.0-4.8); Lymphocytes % (A) 18 %; MCH 30.3 pg (25.0-35.0); MCHC 30.7 g/dL (31.0-37.0); MCV 98.7 fL (80.0-100.0); Mean Platelet Volume 9.6; Monocytes % (A) 7 %; Neutrophils # (A) 10.4 k/uL (1.3-7.7); Neutrophils % (A) 71 %; Platelet Count 225 k/uL (150-450); RDW 13.3 % (11.5-15.5); WBC 14.7 k/uL (3.8-10.6)
--- NOTE | 2024-06-17 04:13 | XR ---
EXAM: XR Chest, 1 View CLINICAL HISTORY: Pt wears 4L NC at baseline- was saturating at 80% at home with c/o increased SOB. Pt. arrived 80% on RA- bipap applied upon arrival. dyspnea, hx COPD, bilat wheeze TECHNIQUE: Frontal view of the chest. COMPARISON: 09/27/2023 FINDINGS: Lungs: small amount of linear opacities over left lower lung zone, slightly increased. Pleural space: Unremarkable. Mediastinum: Calcified aorta. Normal mediastinal contour. Bones/joints: No acute findings. IMPRESSION: small amount of linear opacities over left lower lung zone, slightly increased, likely atelectasis and less likely pneumonia.
[2024-06-17 04:17] LABS: ALT 16 U/L (4-34); AST 24 U/L (14-36); African American GFR (CKD) 53 (>60 ml/min/1.73 sqM); Alkaline Phosphatase 86 U/L (38-126); Anion Gap 7 mmol/L; Blood Urea Nitrogen 21 mg/dL (7-17); Calcium 9.5 mg/dL (8.4-10.2); Carbon Dioxide 36 mmol/L (22-30); Chloride 97 mmol/L (98-107); Glucose 108 mg/dL (74-99); Magnesium 1.8 mg/dL (1.6-2.3); Non-African American GFR(CKD) 46 (>60 ml/min/1.73 sqM); Potassium 4.4 mmol/L (3.5-5.1); Sodium 140 mmol/L (137-145); Total Bilirubin 0.5 mg/dL (0.2-1.3); Total Protein 6.8 g/dL (6.3-8.2)
[2024-06-17 04:25] LABS: NT-Pro-B-Type Natriuretic Pept 45 pg/mL
[2024-06-17] MEDS: AZITHROMYCIN 500 MG in SODIUM CHLORIDE 0.9% 250 ML IVPB STA (04:25)
[2024-06-17 04:26] LABS: Partial Thromboplastin Time 24.3 sec (22.0-30.0); Prothrombin Time 10.8 sec (10.0-12.5)
[2024-06-17] MEDS: ALBUTEROL NEBULIZED 2.5 MG/3 ML INHALATION STA (04:28)
[2024-06-17] MEDS: ACETAMINOPHEN TAB 325 MG TAB PO STA (05:32)
[2024-06-17] MEDS ORDERED: NALOXONE 0.4 MG/ML 1 ML VIAL IVP PRN (06:19)
[2024-06-17] MEDS ORDERED: IPRATROPIUM-ALBUTEROL 3 ML NEB INHALATION PRN (06:19)
[2024-06-17] MEDS: ENOXAPARIN 40 MG/0.4 ML SYRINGE SQ SCH (08:12)
[2024-06-17] MEDS: predniSONE 20 MG TAB PO SCH (08:12)
[2024-06-17] MEDS: AZITHROMYCIN 500 MG TAB PO SCH (08:12)
[2024-06-17] MEDS: IPRATROPIUM-ALBUTEROL 3 ML NEB INHALATION SCH (08:41)
[2024-06-17] MEDS ORDERED: DOXYCYCLINE 100 MG TABLET PO SCH (09:30)
[2024-06-17] MEDS: ZIPRASIDONE 40 MG CAP PO SCH (10:06)
[2024-06-17] MEDS: MAGNESIUM OXIDE 400 MG TAB PO SCH (10:06)
[2024-06-17] MEDS: cloNIDine HCL 0.1 MG TAB PO SCH (10:07)
[2024-06-17] MEDS: PANTOPRAZOLE 40 MG TABLET PO SCH (10:11)
[2024-06-17] MEDS: ALPRAZolam 0.5 MG TAB PO PRN (10:12)
--- NOTE | 2024-06-17 11:01 | P.HPIM ---
History of Present Illness This is a pleasant 63 years old female with past medical history of COPD on 4 L oxygen at home. Presents because of worsening shortness of breath started last night with no chest pain, also she has some cough and phlegm trying to bring it up which was difficult when she had the BiPAP mask earlier but currently her phlegm was decreasing amount. She denies any other new complaints regarding GI/. No neurological complaint, she had light headache.. No weakness or numbness. Walking is fine. She still smokes few cigarettes and she was counseled to quit and she agrees. No alcohol or illicit drugs. Patient is afebrile and hemodynamically stable Labs showing mild leukocytosis of 14.7, creatinine at baseline 1.2, rest of labs including liver function test and troponin x 2 were negative. proBNP is 45. Chest x-ray showing Near opacity in the left lower lung suspicious for atelectasis, less likely pneumonia. EKG showing sinus tachycardia at [address]-T changes and left anterior fascicular block. Patient was started on prednisone 40 mg. Currently patient requiring 8 to 9 L oxygen and she is mildly tachypneic and tachycardic Review of Systems Review of systems CONSTITUTIONAL: No fever, no malaise, no fatigue. HEENT: No recent visual problems or hearing problems. Denied any sore throat. CARDIOVASCULAR: No orthopnea, PND, no palpitations, no syncope. PULMONARY: No chest wall tenderness, no hemoptysis. GASTROINTESTINAL: No diarrhea, no nausea, no vomiting, no abdominal pain. Normoactive bowel sounds. NEUROLOGICAL: No headaches, no weakness, no numbness. HEMATOLOGICAL: Denies any bleeding or petechiae. GENITOURINARY: Denies any burning micturition, frequency, or urgency. MUSCULOSKELETAL/RHEUMATOLOGICAL: Denies any joint pain, swelling, or any muscle pain. ENDOCRINE: Denies any polyuria or polydipsia. Past Medical History Past Medical History: Asthma, COPD, GERD/Reflux, Hyperlipidemia, Liver Disease, Sleep Apnea/CPAP/BIPAP Additional Past Medical History / Comment(s): hx internal hemorrhoid, kidney CA with right nephrectomy, CPAP use, colitis, IBS History of Any Multi-Drug Resistant Organisms: None Reported Past Surgical History: Hysterectomy Additional Past Surgical History / Comment(s): right nephrectomy 04/11/22 Past Anesthesia/Blood Transfusion Reactions: No Reported Reaction Past Psychological History: Anxiety, Bipolar, Depression Smoking Status: Former smoker Past Alcohol Use History: None Reported Past Drug Use History: None Reported - Past Family History Father Family Medical History: COPD, Hyperlipidemia, Hypertension Mother Family Medical History: COPD, Hyperlipidemia, Hypertension Medications and Allergies Home Medications Medication Instructions Recorded Confirmed Type Ziprasidone [Geodon] 40 mg PO DAILY@0500 02/07/14 06/17/24 History Albuterol Inhaler [Ventolin Hfa 2 puff INHALATION RT-Q6H PRN 11/07/17 06/17/24 History Inhaler] Atorvastatin Calcium [Lipitor] 40 mg PO HS@1700 07/03/22 06/17/24 History Levothyroxine Sodium [Synthroid] 112 mcg PO DAILY@0500 07/03/22 06/17/24 History Ziprasidone [[place]] 60 mg PO HS@1700 07/03/22 06/17/24 History buPROPion HCL [Wellbutrin SR] 200 mg PO BID@0500,1700 07/03/22 06/17/24 History Propranolol [Inderal] 20 mg PO BID@0500,1700 03/14/23 06/17/24 History HYDROcodone/APAP 7.5-325MG [[place] 1 tab PO Q8H PRN 09/09/23 06/17/24 History 7.5-325] Ipratropium-Albuterol Nebulize 3 ml INHALATION RT-QID PRN 09/09/23 06/17/24 History [Duoneb 0.5 mg-3 mg/3 ml Soln] Magnesium Oxide [Mag-Ox] 400 mg PO DAILY@0500 09/09/23 06/17/24 History Pantoprazole [Protonix] 40 mg PO DAILY@0500 09/09/23 06/17/24 History ALPRAZolam [Xanax] 0.5 mg PO DAILY PRN 04/17/24 06/17/24 History Budesonide 0.5 mg INHALATION RT-BID@0500,1700 04/17/24 06/17/24 History Multivitamins, Thera [Multivitamin 1 tab PO DAILY@0500 04/17/24 06/17/24 History (formulary)] cloNIDine HCL [Catapres] 0.1 mg PO TID@0500,1100,1700 04/17/24 06/17/24 History hydrALAZINE HCL [Apresoline] 10 mg PO TID@0500,1100,1700 04/17/24 06/17/24 History Allergies Allergy/AdvReac Type Severity Reaction Status Date / Time codeine Allergy Rash/Hives Verified 06/17/24 07:17 doxycycline Allergy Rash/Hives Verified 06/17/24 07:17 Penicillins Allergy Rash/Hives Verified 06/17/24 07:17 on feet Sulfa (Sulfonamide Allergy Rash/Hives Verified 06/17/24 07:17 Antibiotics) ibuprofen [From Motrin] AdvReac Nausea & Verified 06/17/24 07:17 Vomiting Physical Exam Vitals: Vital Signs Temp Pulse Resp BP Pulse Ox FiO2 06/17/24 10:03 124 H 30 H 140/73 90 L 06/17/24 09:19 91 L 06/17/24 08:58 116 H 06/17/24 08:43 114 H 06/17/24 08:41 60 06/17/24 08:20 117 H 36 H 134/69 90 L 06/17/24 06:50 116 H 18 136/79 92 L 06/17/24 05:37 70 06/17/24 05:33 118 H 20 134/62 89 L 06/17/24 05:13 113 H 06/17/24 05:05 40 06/17/24 04:31 112 H 06/17/24 04:28 108 H 18 130/83 94 L 06/17/24 04:12 110 H 18 134/91 95 06/17/24 04:05 113 H 06/17/24 03:58 80 06/17/24 03:36 29 H 06/17/24 03:32 90 L 06/17/24 03:26 100 06/17/24 03:22 97.9 F 120 H 24 152/71 80 L 06/17/24 03:19 100 Intake and Output 06/16/24 06/17/24 06/17/24 22:59 06:59 14:59 Other: Weight 68.039 kg GENERAL: The patient is alert and oriented x3, not in any acute distress. Well developed, well nourished. HEENT: Pupils are round and equally reacting to light. EOMI. No scleral icterus. No conjunctival pallor. Normocephalic, atraumatic. No pharyngeal erythema. No thyromegaly. CARDIOVASCULAR: S1 and S2 present. No murmurs, rubs, or gallops. -PULMONARY: Chest is clear to auscultation, bilateral scattered respiratory wheezing wheezing , no crackles. ABDOMEN: Soft, nontender, nondistended, normoactive bowel sounds. No palpable organomegaly. MUSCULOSKELETAL: No joint swelling or deformity. EXTREMITIES: No cyanosis, clubbing, or pedal edema. NEUROLOGICAL: Gross neurological examination did not reveal any focal deficits. SKIN: No rashes. no petechiae. Results CBC & Chem 7: 06/17/24 03:50 06/17/24 03:50 Labs: Abnormal Lab Results - Last 24 Hours (Table) 06/17/24 06/17/24 Range/Units 03:50 03:50 WBC 14.7 H (3.8-10.6) k/uL Hct 48.4 H (34.0-46.0) % MCHC 30.7 L (31.0-37.0) g/dL Neutrophils # 10.4 H (1.3-7.7) k/uL Chloride 97 L (98-107) mmol/L Carbon Dioxide 36 H (22-30) mmol/L BUN 21 H (7-17) mg/dL Creatinine 1.24 H (0.52-1.04) mg/dL Glucose 108 H (74-99) mg/dL Assessment and Plan Assessment: Acute COPD exacerbation Acute on chronic hypoxic respiratory failure Chronic kidney disease Hyperlipidemia Liver disease Sleep apnea on CPAP/BiPAP Irritable bowel syndrome status post right nephrectomy Plan: Continue with the prednisone Continue with bronchodilator Pulmonary team consult Continue BiPAP as needed tolerating diet continue with oxygen as needed. Labs and medication were reviewed.. Continue same treatment. Continue with symptomatic treatment. Resume home medication. Monitor labs and vitals. DVT and GI prophylaxis. Further recommendations as per clinical course of the patient DVT prophylaxis: Subcutaneous heparin GI Prophylaxis: Pepcid PT/OT: Pending Prognosis is guarded
[2024-06-17] MEDS: methylPREDNISolone SOD SUCCI 125 MG/2 ML VIAL IV SCH (11:47)
[2024-06-17] MEDS: ACETAMINOPHEN TAB 325 MG TAB PO PRN (12:08)
[2024-06-17 12:30] LABS: Influenza A Not Detected (Not Detectd); Influenza B Not Detected (Not Detectd); RSV Not Detected (Not Detectd)
[2024-06-17] MEDS: ATORVASTATIN 40 MG TAB PO SCH (16:24)
[2024-06-17] MEDS: HYDROcodone/APAP 7.5-325MG 1 EACH TAB PO PRN (16:24)
[2024-06-17] MEDS: PROPRANOLOL 20 MG TAB PO SCH (16:25)
[2024-06-17] MEDS: buPROPion SR 100 MG TABLET.ER PO SCH (16:25)
[2024-06-17] MEDS: ZIPRASIDONE 60 MG CAP PO SCH (16:25)
[2024-06-17] MEDS: BUDESONIDE 0.5 MG/2 ML NEBU INHALATION SCH ×2 (16:40→20:16)
--- NOTE | 2024-06-17 16:58 | P.CNPUL ---
History of Present Illness Consult date: 06/17/24 Reason for consult: dyspnea, COPD History of present illness: This is a very pleasant 63-year-old female, known history of severe COPD, her FEV1 is 60% of the predicted, also known to have history of obstructive sleep apnea, normally on CPAP at a pressure of 12 cm of water. She had previous history of renal cell carcinoma undergone previous right nephrectomy followed by targeted therapy. History of GERD, history of multiple admissions with COPD exacerbation in the past. She was just discharged September 15, 2023 for a COPD exacerbation including both hypoxic and hypercapnic respiratory failure requiring BiPAP support. The patient presented to the emergency department with worsening shortness of breath. She stated that her oxygen levels were dropping even on 3 and half liters of oxygen by nasal cannula. She was also utilizing an albuterol rescue inhaler. Based on that, she decided to come in to the emergency department. She denies having any chest pain. No hemoptysis. No pleurisy. Some mucus production. No chest pain. No nausea or emesis. No swelling lower extremities. The white cell count of 14.7 with a hemoglobin 14.8 and a platelet count of 225. Normal coagulation profile. Sodium is at 140, BUN 21 with a creatinine 1.2. Serum bicarb is at 36. Viral 4 Plex has been negative. Troponins are negative. LFTs are normal and the procalcitonin level is at 0.03. I reviewed the chest x-ray from this current admission and it shows small amount of linear opacity in the left lower lung zone. This could be an area of atelectasis. For now, the patient on DuoNeb nebulized treatments [id number], she is on Perforomist and Pulmicort nebulized treatment twice a day. She is on IV Rocephin and she is also on IV Solu-Medrol 60 mg every 6 hours. She is on oxygen at 9 L with a pulse ox of 92%. Based on my records, the patient COPD is advanced. She has an FEV1 of 40% of predicted at baseline. Scan of the chest that was done on 12/24/2023 showed advanced COPD. Her previous described pneumonia in the lung bases improved and the patient continued to have some residual inflammatory changes in the lung bases and a stable 4 mm left upper lobe pulmonary nodule. The patient is a chronic smoker. She also has obstructive sleep apnea with an AHI of 16 maintained on CPAP therapy pressure of 12 cm of water. She has previous right nephrectomy for an underlying renal cell carcinoma. No clear evidence of any p ulmonary metastasis at this point. She also suffers from chronic history kidney disease and chronic compression fracture of the lumbar spine with moderate to severe compression at the level of L1 and mild to moderate compression fraction at the level of L3 and L4. She has utilized lumbar braces in the past. She also has previous history of C. difficile colitis. Review of Systems Constitutional: Reports fatigue, Reports poor appetite, Reports weakness Eyes: denies as per HPI, denies blurred vision, denies bulging eye, denies de creased vision, denies diplopia, denies discharge, denies dry eye, denies irritation, denies itching, denies pain, denies photophobia, denies loss of peripheral vision, denies loss of vision, denies tunnel vision/blind spots Ears: deny: decreased hearing, ear discharge, earache, tinnitus Ears, nose, mouth and throat: Reports as per HPI Breasts: absent: as per HPI, change in shape, gynecomastia, masses, nipple discharge, pain, skin changes, swelling Cardiovascular: Reports decreased exercise tolerance, Reports dyspnea on exertion Respiratory: Reports cough, Reports dyspnea, Reports home oxygen, Reports wheezing Gastrointestinal: Reports as per HPI Genitourinary: Reports as per HPI Menstruation: Reports as per HPI Musculoskeletal: Reports low back pain Musculoskeletal: absent: ankle pain, ankle stiffness, ankle swelling, as per HPI, elbow pain, elbow stiffness, elbow swelling, foot pain, foot stiffness, foot swelling, hand pain, hand stiffness, hand swelling, hip pain, hip stiffness, hip swelling, knee pain, knee stiffness, knee swelling, shoulder pain, shoulder stiffness, shoulder swelling, wrist pain, wrist stiffness, wrist swelling Integumentary: Reports as per HPI Neurological: Reports as per HPI Psychiatric: Reports as per HPI Endocrine: Reports as per HPI Hematologic/Lymphatic: Reports as per HPI Allergic/Immunologic: Reports as per HPI Past Medical History Past Medical History: Asthma, COPD, GERD/Reflux, Hyperlipidemia, Liver Disease, Sleep Apnea/CPAP/BIPAP Additional Past Medical History / Comment(s): hx internal hemorrhoid, kidney CA with right nephrectomy, CPAP use, colitis, IBS History of Any Multi-Drug Resistant Organisms: None Reported Past Surgical History: Hysterectomy Additional Past Surgical History / Comment(s): right nephrectomy 04/11/22 Past Anesthesia/Blood Transfusion Reactions: No Reported Reaction Past Psychological History: Anxiety, Bipolar, Depression Smoking Status: Former smoker Past Alcohol Use History: None Reported Past Drug Use History: None Reported - Past Family History Father Family Medical History: COPD, Hyperlipidemia, Hypertension Mother Family Medical History: COPD, Hyperlipidemia, Hypertension Medications and Allergies Home Medications Medication Instructions Recorded Confirmed Type Ziprasidone [Geodon] 40 mg PO DAILY@0500 02/07/14 06/17/24 History Albuterol Inhaler [Ventolin Hfa 2 puff INHALATION RT-Q6H PRN 11/07/17 06/17/24 History Inhaler] Atorvastatin Calcium [Lipitor] 40 mg PO HS@1700 07/03/22 06/17/24 History Levothyroxine Sodium [Synthroid] 112 mcg PO DAILY@0500 07/03/22 06/17/24 History Ziprasidone [Geodon] 60 mg PO HS@1700 07/03/22 06/17/24 History buPROPion HCL [Wellbutrin SR] 200 mg PO BID@0500,1700 07/03/22 06/17/24 History Propranolol [Inderal] 20 mg PO BID@0500,1700 03/14/23 06/17/24 History HYDROcodone/APAP 7.5-325MG [[place] 1 tab PO Q8H PRN 09/09/23 06/17/24 History 7.5-325] Ipratropium-Albuterol Nebulize 3 ml INHALATION RT-QID PRN 09/09/23 06/17/24 History [Duoneb 0.5 mg-3 mg/3 ml Soln] Magnesium Oxide [Mag-Ox] 400 mg PO DAILY@0500 09/09/23 06/17/24 History Pantoprazole [Protonix] 40 mg PO DAILY@0500 09/09/23 06/17/24 History ALPRAZolam [Xanax] 0.5 mg PO DAILY PRN 04/17/24 06/17/24 History Budesonide 0.5 mg INHALATION RT-BID@0500,1700 04/17/24 06/17/24 History Multivitamins, Thera [Multivitamin 1 tab PO DAILY@0500 04/17/24 06/17/24 History (formulary)] cloNIDine HCL [Catapres] 0.1 mg PO TID@0500,1100,1700 04/17/24 06/17/24 History hydrALAZINE HCL [Apresoline] 10 mg PO TID@0500,1100,1700 04/17/24 06/17/24 History Allergies Allergy/AdvReac Type Severity Reaction Status Date / Time codeine Allergy Rash/Hives Verified 06/17/24 07:17 doxycycline Allergy Rash/Hives Verified 06/17/24 07:17 Penicillins Allergy Rash/Hives Verified 06/17/24 07:17 on feet Sulfa (Sulfonamide Allergy Rash/Hives Verified 06/17/24 07:17 Antibiotics) ibuprofen [From Motrin] AdvReac Nausea & Verified 06/17/24 07:17 Vomiting Physical Exam Vitals: Vital Signs Temp Pulse Resp BP Pulse Ox FiO2 06/17/24 06:50 116 H 18 136/79 92 L 06/17/24 05:37 70 06/17/24 05:33 118 H 20 134/62 89 L 06/17/24 05:13 113 H 06/17/24 05:05 40 06/17/24 04:31 112 H 06/17/24 04:28 108 H 18 130/83 94 L 06/17/24 04:12 110 H 18 134/91 95 06/17/24 04:05 113 H 06/17/24 03:58 80 06/17/24 03:36 29 H 06/17/24 03:32 90 L 06/17/24 03:26 100 06/17/24 03:22 97.9 F 120 H 24 152/71 80 L 06/17/24 03:19 100 Intake and Output 06/16/24 06/17/24 06/17/24 22:59 06:59 14:59 Other: Weight 68.039 kg GENERAL EXAM: Alert, active, 63-year-old female, sitting up in bed, on 9 L nasal cannula, comfortable in no apparent distress. HEAD: Normocephalic. EYES: Normal reaction of pupils, equal size. NOSE: Clear with pink turbinates. THROAT: No erythema or exudates. NECK: No masses, no JVD. CHEST: No chest wall deformity. LUNGS: Equal air entry with no crackles, wheeze, rhonchi or dullness. Marked diminished breath sounds bilaterally with scattered expiratory wheezes heard throughout the lung mandel. CVS: S1 and S2 normal with no audible murmur, regular rhythm. ABDOMEN: No hepatosplenomegaly, normal bowel sounds, no guarding or rigidity. SPINE: No scoliosis or deformity SKIN: No rashes CENTRAL NERVOUS SYSTEM: No focal deficits, tone is normal in all 4 extremities. EXTREMITIES: There is no peripheral edema. No clubbing, no cyanosis. Peripheral pulses are intact. Results - Laboratory Findings CBC and BMP: 06/17/24 03:50 06/17/24 03:50 PT/INR, D-dimer PT 10.8 sec (10.0-12.5) 06/17/24 03:50 INR 1.0 (<1.2) 06/17/24 03:50 Abnormal lab findings: Abnormal Labs 06/17/24 06/17/24 03:50 03:50 WBC 14.7 H Hct 48.4 H MCHC 30.7 L Neutrophils # 10.4 H Chloride 97 L Carbon Dioxide 36 H BUN 21 H Creatinine 1.24 H Glucose 108 H - Diagnostic Findings Chest x-ray: image reviewed Assessment and Plan Plan: Acute on chronic hypoxic respiratory failure secondary to mild, currently off BiPAP. The patient was given BiPAP at a pressure of 10/5 with an FiO2 of 60% in the ED and she is currently transition to 9 L of oxygen by nasal cannula. The patient is reporting some improvement in her shortness of breath and she is able to tolerate oxygen at 96 provide nasal cannula with a pulse ox of 93%. Acute COPD exacerbation, no clear indication for underlying pneumonia. The patient is currently on empiric antibiotic coverage with IV Zosyn. acute on chronic hypoxic respiratory failure on 9 L of oxygen by nasal cannula, typically utilizes 3 to 4 L at home. Chronic kidney disease, stage III. Creatinine is at 1.24 Severe COPD FEV1 of 40%, maintained on budesonide and Duoneb nebs. (unable to do Trelegy) Obstructive sleep apnea syndrome with apnea-hypopnea index of 16, on CPAP with pressure of 12 History of pulmonary nodule, being followed on outpatient basis, 14 x 8 mm subpleural nodule in the superior segment of the left lower lobe History of renal cell carcinoma previous nephrectomy Chronic kidney disease, stage III, creatinine is at 1.24 History of L1 compression fracture and chronic back pain in addition to compression fracture of the L3-L4 Hypothyroidism Plan: Patient is presenting with an acute COPD exacerbation with an acute on top of chronic hypoxic respiratory failure, initially treated with a BiPAP pressure of 10/5 with episodes of 60% currently she is on oxygen at 9 L/min nasal cannula Reviewed the chest x-ray Findings the right lower lobe are probably chronic scar No evidence of pneumonia Continue empiric antibiotic coverage with IV Rocephin Check procalcitonin level Check viral 4 Plex Continue [facility] Start the patient on IV Solu-Medrol Titrate oxygen to maintain saturation above 90% Will continue to follow
[2024-06-18] MEDS: LEVOTHYROXINE 112 MCG TAB PO SCH (05:58)
[2024-06-18 06:21] LABS: Basophils % (A) 0 %; Eosinophils % (A) 0 %; HCT 47.8 % (34.0-46.0); HGB 14.2 gm/dL (11.4-16.0); Hypochromasia Marked; Lymphocytes # (A) 1.1 k/uL (1.0-4.8); Lymphocytes % (A) 7 %; MCH 30.3 pg (25.0-35.0); MCHC 29.6 g/dL (31.0-37.0); MCV 102.4 fL (80.0-100.0); Macrocytosis Slight; Mean Platelet Volume 9.1; Monocytes # (A) 0.3 k/uL (0-1.0); Monocytes % (A) 2 %; Neutrophils % (A) 90 %; Platelet Count 186 k/uL (150-450); RBC 4.67 m/uL (3.80-5.40); RDW 13.2 % (11.5-15.5); WBC 15.6 k/uL (3.8-10.6)
[2024-06-18 06:32] LABS: African American GFR (CKD) 68 (>60 ml/min/1.73 sqM); Anion Gap 4 mmol/L; Blood Urea Nitrogen 23 mg/dL (7-17); Calcium 9.1 mg/dL (8.4-10.2); Carbon Dioxide 31 mmol/L (22-30); Chloride 105 mmol/L (98-107); Glucose 141 mg/dL (74-99); Non-African American GFR(CKD) 59 (>60 ml/min/1.73 sqM); Potassium 4.6 mmol/L (3.5-5.1); Sodium 140 mmol/L (137-145)
--- NOTE | 2024-06-18 15:55 | P.PN ---
Subjective Progress Note Date: 06/18/24 This is a very pleasant 63-year-old female, known history of severe COPD, her FEV1 is 60% of the predicted, also known to have history of obstructive sleep apnea, normally on CPAP at a pressure of 12 cm of water. She had previous history of renal cell carcinoma undergone previous right nephrectomy followed by targeted therapy. History of GERD, history of multiple admissions with COPD exacerbation in the past. She was just discharged September 15, 2023 for a COPD exacerbation including both hypoxic and hypercapnic respiratory failure requiring BiPAP support. The patient presented to the emergency department with worsening shortness of breath. She stated that her oxygen levels were dropping even on 3 and half liters of oxygen by nasal cannula. She was also utilizing an albuterol rescue inhaler. Based on that, she decided to come in to the emergency department. She denies having any chest pain. No hemoptysis. No pleurisy. Some mucus production. No chest pain. No nausea or emesis. No sw elling lower extremities. The white cell count of 14.7 with a hemoglobin 14.8 and a platelet count of 225. Normal coagulation profile. Sodium is at 140, BUN 21 with a creatinine 1.2. Serum bicarb is at 36. Viral 4 Plex has been negative. Troponins are negative. LFTs are normal and the procalcitonin level is at 0.03. I reviewed the chest x-ray from this current admission and it shows small amount of linear opacity in the left lower lung zone. This could be an area of atelectasis. For now, the patient on DuoNeb nebulized treatments [id number], she is on Perforomist and Pulmicort nebulized treatment twice a day. She is on IV Rocephin and she is also on IV Solu-Medrol 60 mg every 6 hours. She is on oxygen at 9 L with a pulse ox of 92%. Based on my records, the patient COPD is advanced. She has an FEV1 of 40% of predicted at baseline. Scan of the chest that was done on 12/24/2023 showed advanced COPD. Her previous described pneumonia in the lung bases improved and the patient continued to have some residual inflammatory changes in the lung bases and a stable 4 mm left upper lobe pulmonary nodule. The patient is a chronic smoker. She also has obstructive sleep apnea with an AHI of 16 maintained on CPAP therapy pressure of 12 cm of water. She has previous right n ephrectomy for an underlying renal cell carcinoma. No clear evidence of any pulmonary metastasis at this point. She also suffers from chronic history kidney disease and chronic compression fracture of the lumbar spine with moderate to severe compression at the level of L1 and mild to moderate comp ression fraction at the level of L3 and L4. She has utilized lumbar braces in the past. She also has previous history of C. difficile colitis. On 06/18/2024, the patient is being seen for a follow-up. The patient was hospitalized for an acute on top of chronic hypoxic respiratory failure. She is currently on 7 L of oxygen by nasal cannula. She was hospitalized for an acute COPD exacerbation. She typically uses oxygen at 3 to 4 L/min nasal cannula on outpatient basis. She has an FEV1 of 40% of predicted. She has also history of renal cell carcinoma and she has undergone previous nephrectomy along with chronic stage III kidney disease. Her condition is stable. She remains on DuoNeb of chest. She remains on IV Solu-Medrol. She remains on budesonide nebulized treatments twice a day. Rest of medications are essentially unchanged and the patient is on empiric antibiotic coverage with IV Rocephin. White cell count of 15.6 with a hemoglobin 14.2 and a platelet count of 186. BUN is 23 with a creatinine 1 and the sodium is at 140. The viral screen was negative. No chest pain. No pleurisy. No hemoptysis. No altered mentation. The blood culture is showing preliminary gram-positive cocci in clusters, likely contaminant. No signs of any septicemia at this point in time. Objective - Vital Signs Vital signs: Vital Signs Temp 98 F 06/18/24 08:21 Pulse 78 06/18/24 08:21 Resp 24 06/18/24 08:21 BP 119/69 06/18/24 08:21 Pulse Ox 92 L 06/18/24 08:21 FiO2 60 06/17/24 08:41 - Exam GENERAL EXAM: Alert, active, 63-year-old female, sitting up in bed, on 7 L nasal cannula, comfortable in no apparent distress. HEAD: Normocephalic. EYES: Normal reaction of pupils, equal size. NOSE: Clear with pink turbinates. THROAT: No erythema or exudates. NECK: No masses, no JVD. CHEST: No chest wall deformity. LUNGS: Equal air entry with no crackles, wheeze, rhonchi or dullness. Marked diminished breath sounds bilaterally with scattered expiratory wheezes heard throughout the lung mandel. CVS: S1 and S2 normal with no audible murmur, regular rhythm. ABDOMEN: No hepatosplenomegaly, normal bowel sounds, no guarding or rigidity. SPINE: No scoliosis or deformity SKIN: No rashes CENTRAL NERVOUS SYSTEM: No focal deficits, tone is normal in all 4 extremities. EXTREMITIES: There is no peripheral edema. No clubbing, no cyanosis. Peripheral pulses are intact. - Labs CBC & Chem 7: 06/18/24 06:09 06/18/24 06:09 Labs: Abnormal Lab Results - Last 24 Hours (Table) 06/18/24 06/18/24 Range/Units 06:09 06:09 WBC 15.6 H (3.8-10.6) k/uL Hct 47.8 H (34.0-46.0) % MCV 102.4 H (80.0-100.0) fL MCHC 29.6 L (31.0-37.0) g/dL Neutrophils # 14.0 H (1.3-7.7) k/uL Carbon Dioxide 31 H (22-30) mmol/L BUN 23 H (7-17) mg/dL Glucose 141 H (74-99) mg/dL Microbiology - Last 24 Hours (Table) 06/17/24 03:36 Blood Culture Gram Stain - Preliminary Blood Blood Culture - Preliminary Molecular ID Assessment and Plan Plan: Acute on chronic hypoxic respiratory failure seconda secondary to COPD exacerbation and the patient is currently improving and she has been taken off the BiPAP and she has been weaned down to 7 L of oxygen by nasal cannula. Acute COPD exacerbation, no clear indication for underlying pneumonia. The patient is currently on empiric antibiotic coverage with IV Zosyn. acute on chronic hypoxic respiratory failure on 7 L of oxygen by nasal cannula, typically utilizes 3 to 4 L at home. Gram-positive cocci in the blood, likely contaminant. Awaiting final cultures. Patient is currently on IV Rocephin Chronic kidney disease, stage III. Creatinine is at 1.24 Severe COPD FEV1 of 40%, maintained on budesonide and Duoneb nebs. (unable to do Trelegy) Obstructive sleep apnea syndrome with apnea-hypopnea index of 16, on CPAP with pressure of 12 History of pulmonary nodule, being followed on outpatient basis, 14 x 8 mm subpleural nodule in the superior segment of the left lower lobe History of renal cell carcinoma previous nephrectomy Chronic kidney disease, stage III, creatinine is at 1.24 History of L1 compression fracture and chronic back pain in addition to compression fracture of the L3-L4 Hypothyroidism Plan: Patient is off BiPAP and the patient is currently on 7 L of O2 nasal cannula No evidence of pneumonia Continue empiric antibiotic coverage with IV Rocephin, and follow-up on the positive blood cultures Check procalcitonin level is not elevated at 0.03 Check viral 4 Plex was negative for any viruses Continue DuoNeb updrafts Continue IV Solu-Medrol Titrate oxygen to maintain saturation above 90% Will continue to follow
[2024-06-18] MEDS: ALPRAZolam 0.5 MG TAB PO PRN (21:01)
--- NOTE | 2024-06-18 22:01 | PN ---
PROGRESS NOTE DATE OF SERVICE: 06/18/2024 SUBJECTIVE: This is a 63-year-old woman, who was admitted with COPD with acute exacerbation, who is on intensive bronchodilator treatment. The patient is on BiPAP as well. WBC is 15.6. Procalcitonin negative. Viral titers are negative. The chest x-ray which I reviewed personally showed no evidence of any significant pneumonia. PAST MEDICAL HISTORY: Reviewed. REVIEW OF SYSTEMS: Fourteen-point review of systems negative except as mentioned earlier. CURRENT MEDICATIONS: Reviewed. PHYSICAL EXAMINATION: VITAL SIGNS: Pulse is 102, blood pressure 126/72, respirations 20. HEENT: Conjunctivae normal. NECK: No JVD. CARDIOVASCULAR: S1, S2 RESPIRATORY: Breathing efforts are markedly increased. Bilaterally scattered rhonchi and crackles. ABDOMEN: Soft. NERVOUS SYSTEM: Nonfocal. LABORATORY DATA: Creatinine is 1.01, slightly improved. ASSESSMENT: 1. Chronic obstructive pulmonary disease with acute exacerbation with acute purulent tracheobronchitis. 2. Acute hypoxic respiratory failure, status post BiPAP. 3. Chronic kidney disease. 4. Hyperlipidemia. 5. Elevated WBC. 6. Chronic liver disease. 8. Multiple complex medical issues. RECOMMENDATIONS: Recommended to continue current management, continue with symptomatic treatment. Continue with bronchodilators, IV steroids, empiric antibiotics. We will continue to monitor. Closely follow with Dr. Acosta. Further recommendations to follow. MMODL / IJN: [id number] / MTDD
--- NOTE | 2024-06-19 08:11 | P.CONS ---
History of Present Illness - Reason for Consult Consult date: 06/18/24 COPD, bacteremia Requesting physician: Peri Mg - Chief Complaint Shortness of breath and cough x days - History of Present Illness Patient is a 63-year-old female with a past medical history significant for hypertension reflux COPD and asthma presenting to the hospital for evaluation of increasing shortness of breath that apparently been going on for a day or 2 before the patient presented to hospital patient was normally at home on 3.5 L nasal cannula noticed her O2 sats to be around 85% has used her albuterol without any improvement as the patient presented to the hospital complaining of more shortness of breath she also have a cough mild to moderate intensity but no purulent sputum patient denies having any nausea no vomiting no choking on the food no abdominal pain no diarrhea currently do not have any open sore on presentation to the hospital patient was afebrile no fever have been recorded subsequently patient was no significant tachycardic or hypotensive she was hypoxic currently on 8 L high flow nasal oxygen did have a white count of 14.7 with a left shift BUN and creatinine has been mildly elevated liver enzymes are normal procalcitonin is normal influenza RSV COVID testing negative patient did have chest x-ray slightly increased left lower lung opacity concerning for atelectasis versus pneumonia patient did have a positive blood culture with staph prompting this consultation Review of Systems Positive point and negatives has been mentioned in the HPI, complete review of systems was performed and all other systems are negative Past Medical History Past Medical History: Asthma, COPD, GERD/Reflux, Hyperlipidemia, Liver Disease, Sleep Apnea/CPAP/BIPAP Additional Past Medical History / Comment(s): hx internal hemorrhoid, kidney CA with right nephrectomy, CPAP use, colitis, IBS History of Any Multi-Drug Resistant Organisms: None Reported Past Surgical History: Hysterectomy Additional Past Surgical History / Comment(s): right nephrectomy 04/11/22 Past Anesthesia/Blood Transfusion Reactions: No Reported Reaction Past Psychological History: Anxiety, Bipolar, Depression Smoking Status: Former smoker Past Alcohol Use History: None Reported Past Drug Use History: None Reported - Past Family History Father Family Medical History: COPD, Hyperlipidemia, Hypertension Mother Family Medical History: COPD, Hyperlipidemia, Hypertension Medications and Allergies Home Medications Medication Instructions Recorded Confirmed Type Ziprasidone [Geodon] 40 mg PO DAILY@0500 02/07/14 06/17/24 History Albuterol Inhaler [Ventolin Hfa 2 puff INHALATION RT-Q6H PRN 11/07/17 06/17/24 History Inhaler] Atorvastatin Calcium [Lipitor] 40 mg PO HS@1700 07/03/22 06/17/24 History Levothyroxine Sodium [Synthroid] 112 mcg PO DAILY@0500 07/03/22 06/17/24 History Ziprasidone [Geodon] 60 mg PO HS@1700 07/03/22 06/17/24 History buPROPion HCL [Wellbutrin SR] 200 mg PO BID@0500,1700 07/03/22 06/17/24 History Propranolol [Inderal] 20 mg PO BID@0500,1700 03/14/23 06/17/24 History HYDROcodone/APAP 7.5-325MG [Morgan 1 tab PO Q8H PRN 09/09/23 06/17/24 History 7.5-325] Ipratropium-Albuterol Nebulize 3 ml INHALATION RT-QID PRN 09/09/23 06/17/24 History [Duoneb 0.5 mg-3 mg/3 ml Soln] Magnesium Oxide [Mag-Ox] 400 mg PO DAILY@0500 09/09/23 06/17/24 History Pantoprazole [Protonix] 40 mg PO DAILY@0500 09/09/23 06/17/24 History ALPRAZolam [Xanax] 0.5 mg PO DAILY PRN 04/17/24 06/17/24 History Budesonide 0.5 mg INHALATION RT-BID@0500,1700 04/17/24 06/17/24 History Multivitamins, Thera [Multivitamin 1 tab PO DAILY@0500 04/17/24 06/17/24 History (formulary)] cloNIDine HCL [Catapres] 0.1 mg PO TID@0500,1100,1700 04/17/24 06/17/24 History hydrALAZINE HCL [Apresoline] 10 mg PO TID@0500,1100,1700 04/17/24 06/17/24 History Allergies Allergy/AdvReac Type Severity Reaction Status Date / Time codeine Allergy Rash/Hives Verified 06/17/24 07:17 doxycycline Allergy Rash/Hives Verified 06/17/24 07:17 Penicillins Allergy Rash/Hives Verified 06/17/24 07:17 on feet Sulfa (Sulfonamide Allergy Rash/Hives Verified 06/17/24 07:17 Antibiotics) ibuprofen [From Motrin] AdvReac Nausea & Verified 06/17/24 07:17 Vomiting Physical Exam Vitals: Vital Signs Temp Pulse Pulse Pulse Resp BP BP 06/18/24 15:54 84 06/18/24 15:41 82 06/18/24 15:20 98.2 F 92 19 125/77 06/18/24 14:44 97.6 F 102 H 20 126/72 06/18/24 11:47 86 06/18/24 11:39 90 06/18/24 11:34 97.9 F 93 22 140/73 06/18/24 08:21 98 F 78 24 119/69 06/18/24 07:47 77 06/18/24 07:37 06/18/24 07:35 81 06/18/24 04:00 98.5 F 86 20 129/69 06/18/24 00:00 98.3 F 82 16 116/63 06/17/24 23:00 85 18 121/67 06/17/24 20:30 82 06/17/24 20:21 84 06/17/24 19:50 84 18 110/73 06/17/24 18:18 97.7 F 89 24 104/65 06/17/24 16:29 116 H 06/17/24 16:28 06/17/24 16:23 113 H 20 131/79 06/17/24 16:18 114 H Pulse Ox 06/18/24 15:54 06/18/24 15:41 06/18/24 15:20 94 L 06/18/24 14:44 93 L 06/18/24 11:47 06/18/24 11:39 06/18/24 11:34 91 L 06/18/24 08:21 92 L 06/18/24 07:47 06/18/24 07:37 92 L 06/18/24 07:35 06/18/24 04:00 93 L 06/18/24 00:00 94 L 06/17/24 23:00 92 L 06/17/24 20:30 06/17/24 20:21 06/17/24 19:50 06/17/24 18:18 93 L 06/17/24 16:29 06/17/24 16:28 92 L 06/17/24 16:23 93 L 06/17/24 16:18 Intake and Output 06/18/24 06/18/24 06/18/24 06:59 14:59 22:59 Other: Voiding Method External Catheter GENERAL DESCRIPTION: Middle-age female lying in bed, no distress. No tachypnea or accessory muscle of respiration use. HEENT: Shows Pallor , no scleral icterus. Oral mucous membrane is dry. NECK: Trachea central, no thyromegaly. LUNGS: Unlabored breathing. Coarse breath sounds bilaterally HEART: S1, S2, regular rate and rhythm. No loud murmur ABDOMEN: Soft, no tenderness , guarding or rigidity, no organomegaly EXTREMITIES: No edema of feet. SKIN: No rash, no masses palpable. NEUROLOGICAL: The patient is awake, alert, oriented x3, mood and affect normal. Results CBC & Chem 7: 06/18/24 06:09 06/18/24 06:09 Labs: Abnormal Lab Results - Last 24 Hours (Table) 06/18/24 06/18/24 Range/Units 06:09 06:09 WBC 15.6 H (3.8-10.6) k/uL Hct 47.8 H (34.0-46.0) % MCV 102.4 H (80.0-100.0) fL MCHC 29.6 L (31.0-37.0) g/dL Neutrophils # 14.0 H (1.3-7.7) k/uL Carbon Dioxide 31 H (22-30) mmol/L BUN 23 H (7-17) mg/dL Glucose 141 H (74-99) mg/dL Microbiology - Last 24 Hours (Table) 06/17/24 03:36 Blood Culture Gram Stain - Preliminary Blood Blood Culture - Preliminary Molecular ID Assessment and Plan (1) Bacteremia Current Visit: Yes Status: Acute Code(s): R78.81 - BACTEREMIA SNOMED Code(s): 4180167 (2) COPD exacerbation Current Visit: Yes Status: Acute Code(s): J44.1 - CHRONIC OBSTRUCTIVE PULMONARY DISEASE W (ACUTE) EXACERBATION SNOMED Code(s): 076684658 (3) Allergy to multiple antibiotics Current Visit: No Status: Acute Code(s): Z88.1 - ALLERGY STATUS TO OTHER ANTIBIOTIC AGENTS SNOMED Code(s): 260988700 Plan: 1patient with a positive blood culture with Staphylococcus patient is likely staph epi and more likely skin contamination as the patient has no clinical disease to go along with it. 2patient with multiple antibiotic ALLERGIES that would limit the number of antibiotic safe to use. 3patient presented to hospital with increasing shortness of breath and cough more likely representing COPD exacerbation with tracheobronchitis clinical not behaving as pneumonia 4try to obtain sputum for Gram stain and culture we will follow on clinical condition and cultures to further adjust medication if needed Thank you for this consultation we will follow the patient along with you Dictation was produced using [employer] dictation software. please excuse any grammatical, word or spelling errors. Time with Patient: Greater than 30
[2024-06-19 08:38] LABS: Basophils % (A) 0 %; Eosinophils % (A) 0 %; HCT 46.6 % (34.0-46.0); HGB 14.2 gm/dL (11.4-16.0); Hypochromasia Marked; Lymphocytes # (A) 1.1 k/uL (1.0-4.8); Lymphocytes % (A) 5 %; MCH 30.2 pg (25.0-35.0); MCHC 30.5 g/dL (31.0-37.0); MCV 99.1 fL (80.0-100.0); Mean Platelet Volume 9.8; Monocytes # (A) 0.8 k/uL (0-1.0); Monocytes % (A) 4 %; Neutrophils # (A) 19.6 k/uL (1.3-7.7); Neutrophils % (A) 90 %; Platelet Count 213 k/uL (150-450); RDW 12.9 % (11.5-15.5); WBC 21.7 k/uL (3.8-10.6)
[2024-06-19 08:57] LABS: African American GFR (CKD) 66 (>60 ml/min/1.73 sqM); Anion Gap 7 mmol/L; Blood Urea Nitrogen 27 mg/dL (7-17); Carbon Dioxide 33 mmol/L (22-30); Chloride 103 mmol/L (98-107); Glucose 119 mg/dL (74-99); Non-African American GFR(CKD) 57 (>60 ml/min/1.73 sqM); Potassium 4.6 mmol/L (3.5-5.1); Sodium 143 mmol/L (137-145)
--- NOTE | 2024-06-19 15:33 | P.PN ---
Subjective Progress Note Date: 06/19/24 This is a very pleasant 63-year-old female, known history of severe COPD, her FEV1 is 60% of the predicted, also known to have history of obstructive sleep apnea, normally on CPAP at a pressure of 12 cm of water. She had previous history of renal cell carcinoma undergone previous right nephrectomy followed by targeted therapy. History of GERD, history of multiple admissions with COPD exacerbation in the past. She was just discharged September 15, 2023 for a COPD exacerbation including both hypoxic and hypercapnic respiratory failure requiring BiPAP support. The patient presented to the emergency department with worsening shortness of breath. She stated that her oxygen levels were dropping even on 3 and half liters of oxygen by nasal cannula. She was also utilizing an albuterol rescue inhaler. Based on that, she decided to come in to the emergency department. She denies having any chest pain. No hemoptysis. No pleurisy. Some mucus production. No chest pain. No nausea or emesis. No sw elling lower extremities. The white cell count of 14.7 with a hemoglobin 14.8 and a platelet count of 225. Normal coagulation profile. Sodium is at 140, BUN 21 with a creatinine 1.2. Serum bicarb is at 36. Viral 4 Plex has been negative. Troponins are negative. LFTs are normal and the procalcitonin level is at 0.03. I reviewed the chest x-ray from this current admission and it shows small amount of linear opacity in the left lower lung zone. This could be an area of atelectasis. For now, the patient on DuoNeb nebulized treatments [id number], she is on Perforomist and Pulmicort nebulized treatment twice a day. She is on IV Rocephin and she is also on IV Solu-Medrol 60 mg every 6 hours. She is on oxygen at 9 L with a pulse ox of 92%. Based on my records, the patient COPD is advanced. She has an FEV1 of 40% of predicted at baseline. Scan of the chest that was done on 12/24/2023 showed advanced COPD. Her previous described pneumonia in the lung bases improved and the patient continued to have some residual inflammatory changes in the lung bases and a stable 4 mm left upper lobe pulmonary nodule. The patient is a chronic smoker. She also has obstructive sleep apnea with an AHI of 16 maintained on CPAP therapy pressure of 12 cm of water. She has previous right n ephrectomy for an underlying renal cell carcinoma. No clear evidence of any pulmonary metastasis at this point. She also suffers from chronic history kidney disease and chronic compression fracture of the lumbar spine with moderate to severe compression at the level of L1 and mild to moderate comp ression fraction at the level of L3 and L4. She has utilized lumbar braces in the past. She also has previous history of C. difficile colitis. On 06/18/2024, the patient is being seen for a follow-up. The patient was hospitalized for an acute on top of chronic hypoxic respiratory failure. She is currently on 7 L of oxygen by nasal cannula. She was hospitalized for an acute COPD exacerbation. She typically uses oxygen at 3 to 4 L/min nasal cannula on outpatient basis. She has an FEV1 of 40% of predicted. She has also history of renal cell carcinoma and she has undergone previous nephrectomy along with chronic stage III kidney disease. Her condition is stable. She remains on DuoNeb of chest. She remains on IV Solu-Medrol. She remains on budesonide nebulized treatments twice a day. Rest of medications are essentially unchanged and the patient is on empiric antibiotic coverage with IV Rocephin. White cell count of 15.6 with a hemoglobin 14.2 and a platelet count of 186. BUN is 23 with a creatinine 1 and the sodium is at 140. The viral screen was negative. No chest pain. No pleurisy. No hemoptysis. No altered mentation. The blood culture is showing preliminary gram-positive cocci in clusters, likely contaminant. No signs of any septicemia at this point in time. 06/19/2024, the patient is being seen for a follow-up. The patient is feeling better compared to yesterday. She has been weaned down to 60 to the maximal nasal cannula with a pulse ox of 94%. Her baseline is at 5 L. She remains on DuoNeb updrafts, Pulmicort Respules, IV Solu-Medrol 60 mg every 6 hours. She is also on empiric antibiotic coverage with IV Rocephin. No chest pain. No hemoptysis. Her white cell count of 21 with a hemoglobin of 14.2 and a platelet count of 230.. 27 with a creatinine of 1.04 and a sodium levels at 143 and a potassium level is at 4.6. No chest pain. No altered mentation. No hemodynamic instability. Blood culture was positive for gram-positive cocci and clusters, likely contaminant. Noted, the patient's procalcitonin level was only at 0.03. ID is on the case. Objective - Vital Signs Vital signs: Vital Signs Temp 97.5 F L 06/19/24 08:00 Pulse 90 06/19/24 08:00 Resp 20 06/19/24 08:00 BP 147/84 06/19/24 08:00 Pulse Ox 92 L 06/19/24 08:00 FiO2 60 06/17/24 08:41 Intake & Output 06/18/24 06/19/24 06/19/24 18:59 06:59 18:59 Intake Total 180 30 128 Output Total 540 Balance 180 -510 128 Weight 68.039 kg 72.5 kg Intake: IV 30 10 Invasive Line 1 20 Invasive Line 2 10 10 Oral 180 118 Output: Urine 540 Other: Voiding Method External Catheter External Catheter External Catheter # Voids 1 # Bowel Movements 1 - Exam GENERAL EXAM: Alert, active, 63-year-old female, sitting up in bed, on 6 L nasal cannula, comfortable in no apparent distress. HEAD: Normocephalic. EYES: Normal reaction of pupils, equal size. NOSE: Clear with pink turbinates. THROAT: No erythema or exudates. NECK: No masses, no JVD. CHEST: No chest wall deformity. LUNGS: Equal air entry with no crackles, wheeze, rhonchi or dullness. Marked diminished breath sounds bilaterally with scattered expiratory wheezes heard throughout the lung mandel. CVS: S1 and S2 normal with no audible murmur, regular rhythm. ABDOMEN: No hepatosplenomegaly, normal bowel sounds, no guarding or rigidity. SPINE: No scoliosis or deformity SKIN: No rashes CENTRAL NERVOUS SYSTEM: No focal deficits, tone is normal in all 4 extremities. EXTREMITIES: There is no peripheral edema. No clubbing, no cyanosis. Peripheral pulses are intact. - Labs CBC & Chem 7: 06/19/24 07:35 06/19/24 07:35 Labs: Abnormal Lab Results - Last 24 Hours (Table) 06/19/24 06/19/24 Range/Units 07:35 07:35 WBC 21.7 H (3.8-10.6) k/uL Hct 46.6 H (34.0-46.0) % MCHC 30.5 L (31.0-37.0) g/dL Neutrophils # 19.6 H (1.3-7.7) k/uL Carbon Dioxide 33 H (22-30) mmol/L BUN 27 H (7-17) mg/dL Glucose 119 H (74-99) mg/dL Microbiology - Last 24 Hours (Table) 06/17/24 03:36 Blood Culture Gram Stain - Preliminary Blood Blood Culture - Preliminary Molecular ID Assessment and Plan Plan: Acute on chronic hypoxic respiratory failure seconda secondary to COPD exacerbation and the patient is currently improving and she has been taken off the BiPAP and she has been weaned down to 6 L of oxygen by nasal cannula. Acute COPD exacerbation, no clear indication for underlying pneumonia. The patient is currently on empiric antibiotic coverage with IV Zosyn. acute on chronic hypoxic respiratory failure on 7 L of oxygen by nasal cannula, typically utilizes 3 to 4 L at home. Gram-positive cocci in the blood, likely contaminant. Awaiting final cultures. Patient is currently on IV Rocephin Chronic kidney disease, stage III. Creatinine is at 1.24 Severe COPD FEV1 of 40%, maintained on budesonide and Duoneb nebs. (unable to do Trelegy) Obstructive sleep apnea syndrome with apnea-hypopnea index of 16, on CPAP with pressure of 12 History of pulmonary nodule, being followed on outpatient basis, 14 x 8 mm subpleural nodule in the superior segment of the left lower lobe History of renal cell carcinoma previous nephrectomy Chronic kidney disease, stage III, creatinine is at 1.24 History of L1 compression fracture and chronic back pain in addition to compression fracture of the L3-L4 Hypothyroidism Plan: Continue same management. Patient will be gradually weaned down on her FiO2 and currently she is down to 6 L. No evidence of pneumonia Continue empiric antibiotic coverage with IV Rocephin, and follow-up on the positive blood cultures, ID is on the case Check procalcitonin level is not elevated at 0.03 Check viral 4 Plex was negative for any viruses Continue DuoNeb updrafts Continue IV Solu-Medrol Titrate oxygen to maintain saturation above 90% Will continue to follow
--- NOTE | 2024-06-19 22:55 | P.PN ---
Subjective Progress Note Date: 06/19/24 Principal diagnosis: Reason for follow-up is positive blood culture Patient is a 63-year-old female with a past medical history significant for hypertension reflux COPD and asthma presenting to the hospital for evaluation of increasing shortness of breath diagnosed with COPD exacerbation with tracheobronchitis blood cultures were positive prompting this consultation. On today's evaluation that is 06/19/2024,the patient denies any fever or any chills, patient is breathing comfortably down to 6 L nasal cannula oxygen the patient denies chest pain shortness of breath and no worsening cough or sputum production, patient denies abdominal pain, no nausea vomiting or diarrhea. Patient white count is 21.7 creatinine 1.04 sputum not collected Objective - Vital Signs Vital signs: Vital Signs Temp 97.5 F L 06/19/24 08:00 Pulse 72 06/19/24 11:43 Resp 18 06/19/24 11:32 BP 147/84 06/19/24 08:00 Pulse Ox 94 L 06/19/24 11:32 FiO2 60 06/19/24 11:32 Intake & Output 06/18/24 06/19/24 06/19/24 18:59 06:59 18:59 Intake Total 180 30 128 Output Total 540 Balance 180 -510 128 Weight 68.039 kg 72.5 kg Intake: IV 30 10 Invasive Line 1 20 Invasive Line 2 10 10 Oral 180 118 Output: Urine 540 Other: Voiding Method External Catheter External Catheter External Catheter # Voids 1 # Bowel Movements 1 - Exam GENERAL DESCRIPTION: Middle-age female lying in bed in no distress RESPIRATORY SYSTEM: Unlabored breathing , coarse breath sounds bilaterally HEART: S1 S2 regular rate and rhythm , ABDOMEN: Soft , no tenderness EXTREMITIES: No edema feet - Labs CBC & Chem 7: 06/19/24 07:35 06/19/24 07:35 Labs: Abnormal Lab Results - Last 24 Hours (Table) 06/19/24 06/19/24 Range/Units 07:35 07:35 WBC 21.7 H (3.8-10.6) k/uL Hct 46.6 H (34.0-46.0) % MCHC 30.5 L (31.0-37.0) g/dL Neutrophils # 19.6 H (1.3-7.7) k/uL Carbon Dioxide 33 H (22-30) mmol/L BUN 27 H (7-17) mg/dL Glucose 119 H (74-99) mg/dL Microbiology - Last 24 Hours (Table) 06/17/24 03:36 Blood Culture Gram Stain - Preliminary Blood Blood Culture - Preliminary Molecular ID Assessment and Plan (1) Bacteremia Current Visit: Yes Status: Acute Code(s): R78.81 - BACTEREMIA SNOMED Code(s): 0094867 (2) COPD exacerbation Current Visit: Yes Status: Acute Code(s): J44.1 - CHRONIC OBSTRUCTIVE PULMONARY DISEASE W (ACUTE) EXACERBATION SNOMED Code(s): 702628514 (3) Allergy to multiple antibiotics Current Visit: No Status: Acute Code(s): Z88.1 - ALLERGY STATUS TO OTHER ANTIBIOTIC AGENTS SNOMED Code(s): 526481290 (4) Leukocytosis Current Visit: No Status: Acute Code(s): D72.829 - ELEVATED WHITE BLOOD CELL COUNT, UNSPECIFIED SNOMED Code(s): 435998555 Plan: 1patient with a positive blood culture with Staphylococcus patient is likely staph epi and more likely skin contamination as the patient has no clinical disease to go along with it. 2patient with multiple antibiotic ALLERGIES that would limit the number of antibiotic safe to use. 3patient presented to hospital with increasing shortness of breath and cough more likely representing COPD exacerbation with tracheobronchitis clinical not behaving as pneumonia 4sputum and repeat blood culture have been requested sputum has not been collected repeat blood cultures currently pending 5-worsening of the white count more likely related to the steroids will be monitored closely Dictation was produced using [employer] dictation software. please excuse any gramma tical, word or spelling errors. Time with Patient: Less than 30
--- NOTE | 2024-06-19 23:19 | PN ---
PROGRESS NOTE DATE OF SERVICE: 06/19/2024 SUBJECTIVE: This is a 63-year-old woman, who was admitted with COPD acute exacerbation as well as acute hypoxic respiratory failure, also has some bacteremia. Infectious Disease consulted. OBJECTIVE: VITAL SIGNS: Pulse is 78, blood pressure 140/86, respirations 18. CHEST: A few scattered rhonchi and crackles. ABDOMEN: Soft. NERVOUS SYSTEM: Nonfocal. LABORATORY DATA: WBC 21.7. ASSESSMENT: 1. Chronic obstructive pulmonary disease acute exacerbation with acute purulent tracheobronchitis. 2. Acute hypoxic respiratory failure, status post BiPAP. 3. Chronic kidney disease. 4. Hyperlipidemia. 5. Possible chronic liver disease. 6. Elevated WBC. 7. Multiple complex medical issues. RECOMMENDATIONS: Recommend to continue current management, continue symptomatic treatment. Recommend to continue with IV antibiotics. Await repeat cultures. Guarded prognosis. Further recommendations to follow. MMODL / IJN: [id number] /
[2024-06-20 06:50] LABS: Basophils % (A) 0 %; Eosinophils % (A) 0 %; HCT 40.8 % (34.0-46.0); HGB 12.4 gm/dL (11.4-16.0); Hypochromasia Marked; Lymphocytes # (A) 0.9 k/uL (1.0-4.8); Lymphocytes % (A) 6 %; MCH 30.1 pg (25.0-35.0); MCHC 30.5 g/dL (31.0-37.0); MCV 98.9 fL (80.0-100.0); Mean Platelet Volume 9.7; Monocytes # (A) 0.6 k/uL (0-1.0); Monocytes % (A) 4 %; Neutrophils # (A) 13.6 k/uL (1.3-7.7); Neutrophils % (A) 89 %; Platelet Count 180 k/uL (150-450); RBC 4.12 m/uL (3.80-5.40); RDW 12.9 % (11.5-15.5); WBC 15.2 k/uL (3.8-10.6)
[2024-06-20 07:09] LABS: African American GFR (CKD) 65 (>60 ml/min/1.73 sqM); Anion Gap 4 mmol/L; Blood Urea Nitrogen 35 mg/dL (7-17); Calcium 8.4 mg/dL (8.4-10.2); Carbon Dioxide 35 mmol/L (22-30); Chloride 103 mmol/L (98-107); Glucose 93 mg/dL (74-99); Non-African American GFR(CKD) 56 (>60 ml/min/1.73 sqM); Sodium 142 mmol/L (137-145)
--- NOTE | 2024-06-20 09:54 | XR ---
EXAMINATION TYPE: XR chest 1V portable DATE OF EXAM: 06/20/2024 9:14 AM COMPARISON: Chest radiographs from 06/17/2024. 2. 12/22/2023 CT CLINICAL INDICATION: Female, 63 years old with history of shortness of breath; TECHNIQUE: XR chest 1V portable Frontal view of the chest. FINDINGS: Lungs/Pleura: There is no evidence of pleural effusion, focal consolidation, or pneumothorax. Pulmonary vascularity: Unremarkable. Heart/mediastinum: Cardiomediastinal silhouette is unremarkable. Musculoskeletal: No acute osseous pathology. IMPRESSION: 1. No acute cardiopulmonary disease/process. 2. Similar consolidation changes in the bilateral lungs dating back to at least 12/22/2023 [facility], , 06/20/2024 9:51 AM
--- NOTE | 2024-06-20 14:37 | P.PN ---
Subjective Progress Note Date: 06/20/24 Principal diagnosis: Reason for follow-up is positive blood culture Patient is a 63-year-old female with a past medical history significant for hypertension reflux COPD and asthma presenting to the hospital for evaluation of increasing shortness of breath diagnosed with COPD exacerbation with tracheobronchitis blood cultures were positive prompting this consultation. On today's evaluation that is 06/20/2024,the patient remains to be afebrile, patient is on 6 L nasal cannula supplemental oxygen and denies any worsening shortness of breath no chest pain or cough.Patient denies having any nausea or vomiting, no abdominal pain and no diarrhea. Patient white count is 15.2 creatinine 1.05 blood culture repeat so far negative Objective - Vital Signs Vital signs: Vital Signs Temp 98.1 F 06/20/24 08:00 Pulse 90 06/20/24 08:00 Resp 18 06/20/24 08:00 BP 149/84 06/20/24 08:00 Pulse Ox 90 L 06/20/24 08:00 FiO2 40 06/20/24 00:12 Intake & Output 06/19/24 06/20/24 06/20/24 18:59 06:59 18:59 Intake Total 256 10 118 Output Total 250 Balance 256 -240 118 Weight 71.5 kg Intake: IV 20 10 Invasive Line 2 20 10 Oral 236 118 Output: Urine 250 Other: Voiding Method External Catheter External Catheter External Catheter # Voids 1 1 # Bowel Movements 1 1 - Exam GENERAL DESCRIPTION: Middle-age female lying in bed in no distress RESPIRATORY SYSTEM: Unlabored breathing , coarse breath sounds bilaterally HEART: S1 S2 regular rate and rhythm , ABDOMEN: Soft , no tenderness EXTREMITIES: No edema feet - Labs CBC & Chem 7: 06/20/24 06:12 06/20/24 06:12 Labs: Abnormal Lab Results - Last 24 Hours (Table) 06/20/24 06/20/24 Range/Units 06:12 06:12 WBC 15.2 H (3.8-10.6) k/uL MCHC 30.5 L (31.0-37.0) g/dL Neutrophils # 13.6 H (1.3-7.7) k/uL Lymphocytes # 0.9 L (1.0-4.8) k/uL Carbon Dioxide 35 H (22-30) mmol/L BUN 35 H (7-17) mg/dL Creatinine 1.05 H (0.52-1.04) mg/dL Microbiology - Last 24 Hours (Table) 06/17/24 03:36 Blood Culture Gram Stain - Final Blood Blood Culture - Final S.hominis ss novobiosepticus Molecular ID Assessment and Plan (1) Bacteremia Current Visit: Yes Status: Acute Code(s): R78.81 - BACTEREMIA SNOMED Code(s): 5267643 (2) COPD exacerbation Current Visit: Yes Status: Acute Code(s): J44.1 - CHRONIC OBSTRUCTIVE PULMONARY DISEASE W (ACUTE) EXACERBATION SNOMED Code(s): 072972637 (3) Allergy to multiple antibiotics Current Visit: No Status: Acute Code(s): Z88.1 - ALLERGY STATUS TO OTHER ANTIBIOTIC AGENTS SNOMED Code(s): 768227451 (4) Leukocytosis Current Visit: No Status: Acute Code(s): D72.829 - ELEVATED WHITE BLOOD CELL COUNT, UNSPECIFIED SNOMED Code(s): 681201630 Plan: 1patient with a positive blood culture with Staphylococcus patient is likely staph epi and more likely skin contamination as the patient has no clinical disease to go along with it. 2patient with multiple antibiotic ALLERGIES that would limit the number of antibiotic safe to use. 3patient presented to hospital with increasing shortness of breath and cough more likely representing COPD exacerbation with tracheobronchitis clinical not behaving as pneumonia 4sputum and repeat blood culture have been requested, repeat blood cultures so far negative 5-leukocytosis more likely steroid related and is trending down we will monitor closely Dictation was produced using [employer] dictation software. please excuse any grammatical, word or spelling errors. Time with Patient: Less than 30
--- NOTE | 2024-06-20 15:41 | CT ---
EXAMINATION TYPE: CT chest wo con DATE OF EXAM: 06/20/2024 COMPARISON: CTA chest dated 03/14/2023 CLINICAL INDICATION: Female, 63 years old with history of bilateral scarring; PHH, Bilateral scarring TECHNIQUE: CT scan of the thorax is performed without IV contrast. CT DLP: 358.[address] CTDI: mGy Automated exposure control for dose reduction was used. FINDINGS: There is moderate to large wedge-shaped density with air bronchograms in the right lower lobe likely chronic atelectasis with bronchiectasis. There is interstitial scarring and bronchiectasis in the lef t lung base medially. There is mild interstitial scarring in the lingula. There is no suspicious lung mass. There is no pleural effusion or pneumothorax. There is 4 cm dilatation of the ascending thoracic aorta. There is 3.7 cm dilatation of the main pulm onary artery can be seen with pulmonary hypertension. Limited scanning through the upper abdomen reveals cholelithiasis. There is a 3.4 cm mass left adrena l gland density most consistent with benign adenoma. There is a 4.4 x 3.2 cm enlarged periaortic lymp h node. There is a biliary stent. There are multiple, mild to moderate to severe compression fractures in the midthoracic, lower thora cic spine and upper lumbar spine.. IMPRESSION: 1. Right lower lobe opacity with air bronchograms likely chronic atelectasis. 2. Interstitial scarring in the lingula and left lower lobe with bronchiectasis. 3. Mild aneurysmal dilatation of the ascending thoracic aorta and dilatation of the main pulmonary ar michael possibly indicating pulmonary hypertension. 4. Cholelithiasis. 5. 3.4 cm left adrenal mass possibly adenoma. 6. 4.4 x 3.2 cm periaortic enlarged lymph node in over 7 biliary stent. 8. Multiple mild to moderate to severe compression fractures in the thoracic and upper lumbar spine [facility], , 06/20/2024 3:39 PM
--- NOTE | 2024-06-20 22:01 | PN ---
PROGRESS NOTE DATE OF SERVICE: 06/20/2024 SUBJECTIVE: This is a 63-year-old woman, who was admitted with COPD and acute respiratory failure. She is still on 6L nasal cannula. No chest pain, no palpitation. PHYSICAL EXAMINATION: VITAL SIGNS: Pulse is 80, blood pressure 133/83, respirations 18. CHEST: A few scattered rhonchi. ABDOMEN: Soft. NERVOUS SYSTEM: Nonfocal. LABORATORY DATA: Reviewed. D-dimer is normal. Chest x-ray showed bilateral lesions, possibly old. ASSESSMENT: 1. Chronic obstructive pulmonary disease with acute exacerbation with acute purulent tracheobronchitis and acute hypoxic respiratory failure, status post BiPAP. 2. Chronic kidney disease. 3. Hyperlipidemia. 4. Possible chronic liver disease. 5. Increased WBC. 6. Multiple complex medical issues. RECOMMENDATIONS: Recommended to continue with current management, continue with treatment. Otherwise, D- dimer is negative. The patient had consolidation in the CAT scan, last year, December. I would recommend a CT without contrast repeat and continue to monitor. Further recommendations to follow. MMODL / IJN: [id number] /
--- NOTE | 2024-06-20 22:47 | P.PN ---
Subjective Progress Note Date: 06/20/24 This is a very pleasant 63-year-old female, known history of severe COPD, her FEV1 is 60% of the predicted, also known to have history of obstructive sleep apnea, normally on CPAP at a pressure of 12 cm of water. She had previous history of renal cell carcinoma undergone previous right nephrectomy followed by targeted therapy. History of GERD, history of multiple admissions with COPD exacerbation in the past. She was just discharged September 15, 2023 for a COPD exacerbation including both hypoxic and hypercapnic respiratory failure requiring BiPAP support. The patient presented to the emergency department with worsening shortness of breath. She stated that her oxygen levels were dropping even on 3 and half liters of oxygen by nasal cannula. She was also utilizing an albuterol rescue inhaler. Based on that, she decided to come in to the emergency department. She denies having any chest pain. No hemoptysis. No pleurisy. Some mucus production. No chest pain. No nausea or emesis. No sw elling lower extremities. The white cell count of 14.7 with a hemoglobin 14.8 and a platelet count of 225. Normal coagulation profile. Sodium is at 140, BUN 21 with a creatinine 1.2. Serum bicarb is at 36. Viral 4 Plex has been negative. Troponins are negative. LFTs are normal and the procalcitonin level is at 0.03. I reviewed the chest x-ray from this current admission and it shows small amount of linear opacity in the left lower lung zone. This could be an area of atelectasis. For now, the patient on DuoNeb nebulized treatments [id number], she is on Perforomist and Pulmicort nebulized treatment twice a day. She is on IV Rocephin and she is also on IV Solu-Medrol 60 mg every 6 hours. She is on oxygen at 9 L with a pulse ox of 92%. Based on my records, the patient COPD is advanced. She has an FEV1 of 40% of predicted at baseline. Scan of the chest that was done on 12/24/2023 showed advanced COPD. Her previous described pneumonia in the lung bases improved and the patient continued to have some residual inflammatory changes in the lung bases and a stable 4 mm left upper lobe pulmonary nodule. The patient is a chronic smoker. She also has obstructive sleep apnea with an AHI of 16 maintained on CPAP therapy pressure of 12 cm of water. She has previous right n ephrectomy for an underlying renal cell carcinoma. No clear evidence of any pulmonary metastasis at this point. She also suffers from chronic history kidney disease and chronic compression fracture of the lumbar spine with moderate to severe compression at the level of L1 and mild to moderate comp ression fraction at the level of L3 and L4. She has utilized lumbar braces in the past. She also has previous history of C. difficile colitis. On 06/18/2024, the patient is being seen for a follow-up. The patient was hospitalized for an acute on top of chronic hypoxic respiratory failure. She is currently on 7 L of oxygen by nasal cannula. She was hospitalized for an acute COPD exacerbation. She typically uses oxygen at 3 to 4 L/min nasal cannula on outpatient basis. She has an FEV1 of 40% of predicted. She has also history of renal cell carcinoma and she has undergone previous nephrectomy along with chronic stage III kidney disease. Her condition is stable. She remains on DuoNeb of chest. She remains on IV Solu-Medrol. She remains on budesonide nebulized treatments twice a day. Rest of medications are essentially unchanged and the patient is on empiric antibiotic coverage with IV Rocephin. White cell count of 15.6 with a hemoglobin 14.2 and a platelet count of 186. BUN is 23 with a creatinine 1 and the sodium is at 140. The viral screen was negative. No chest pain. No pleurisy. No hemoptysis. No altered mentation. The blood culture is showing preliminary gram-positive cocci in clusters, likely contaminant. No signs of any septicemia at this point in time. 06/19/2024, the patient is being seen for a follow-up. The patient is feeling better compared to yesterday. She has been weaned down to 60 to the maximal nasal cannula with a pulse ox of 94%. Her baseline is at 5 L. She remains on DuoNeb updrafts, Pulmicort Respules, IV Solu-Medrol 60 mg every 6 hours. She is also on empiric antibiotic coverage with IV Rocephin. No chest pain. No hemoptysis. Her white cell count of 21 with a hemoglobin of 14.2 and a platelet count of 230.. 27 with a creatinine of 1.04 and a sodium levels at 143 and a potassium level is at 4.6. No chest pain. No altered mentation. No hemodynamic instability. Blood culture was positive for gram-positive cocci and clusters, likely contaminant. Noted, the patient's procalcitonin level was only at 0.03. ID is on the case. On 06/20/2024, the patient is being seen for a follow-up. The patient is stable. She is still on 6 L of oxygen by nasal cannula. Pulse ox in the order of 95%. Slow but ongoing improvement. D-dimer is at 0.44. The white cell count is 15.2 with a hemoglobin of 12.4 and a platelet count of 180. Electrolytes are unchanged. BUN is 35 with a creatinine of 1.05. Medications remain unchanged. The patient has no new specific complaints. Remains on IV Solu-Medrol. Remains on DuoNeb nebulized treatments [id number]. Objective - Vital Signs Vital signs: Vital Signs Temp 98.1 F 06/20/24 08:00 Pulse 90 06/20/24 08:00 Resp 18 06/20/24 08:00 BP 149/84 06/20/24 08:00 Pulse Ox 90 L 06/20/24 08:00 FiO2 40 06/20/24 00:12 Intake & Output 06/19/24 06/20/24 06/20/24 18:59 06:59 18:59 Intake Total 256 10 118 Output Total 250 Balance 256 -240 118 Weight 71.5 kg Intake: IV 20 10 Invasive Line 2 20 10 Oral 236 118 Output: Urine 250 Other: Voiding Method External Catheter External Catheter External Catheter # Voids 1 1 # Bowel Movements 1 1 - Exam GENERAL EXAM: Alert, active, 63-year-old female, sitting up in bed, on 6 L nasal cannula, comfortable in no apparent distress. HEAD: Normocephalic. EYES: Normal reaction of pupils, equal size. NOSE: Clear with pink turbinates. THROAT: No erythema or exudates. NECK: No masses, no JVD. CHEST: No chest wall deformity. LUNGS: Equal air entry with no crackles, wheeze, rhonchi or dullness. Marked diminished breath sounds bilaterally with scattered expiratory wheezes heard throughout the lung mandel. CVS: S1 and S2 normal with no audible murmur, regular rhythm. ABDOMEN: No hepatosplenomegaly, normal bowel sounds, no guarding or rigidity. SPINE: No scoliosis or deformity SKIN: No rashes CENTRAL NERVOUS SYSTEM: No focal deficits, tone is normal in all 4 extremities. EXTREMITIES: There is no peripheral edema. No clubbing, no cyanosis. Peripheral pulses are intact. - Labs CBC & Chem 7: 06/20/24 06:12 06/20/24 06:12 Labs: Abnormal Lab Results - Last 24 Hours (Table) 06/20/24 06/20/24 Range/Units 06:12 06:12 WBC 15.2 H (3.8-10.6) k/uL MCHC 30.5 L (31.0-37.0) g/dL Neutrophils # 13.6 H (1.3-7.7) k/uL Lymphocytes # 0.9 L (1.0-4.8) k/uL Carbon Dioxide 35 H (22-30) mmol/L BUN 35 H (7-17) mg/dL Creatinine 1.05 H (0.52-1.04) mg/dL Assessment and Plan Plan: Acute on chronic hypoxic respiratory failure seconda secondary to COPD exacerbation and the patient is currently improving and she has been taken off the BiPAP and she has been weaned down to 6 L of oxygen by nasal cannula. Acute COPD exacerbation, no clear indication for underlying pneumonia. The patient is currently on empiric antibiotic coverage with IV Zosyn. acute on chronic hypoxic respiratory failure on 7 L of oxygen by nasal cannula, typically utilizes 3 to 4 L at home. Gram-positive cocci in the blood, likely contaminant. Awaiting final cultures. Patient is currently on IV Rocephin Chronic kidney disease, stage III. Creatinine is at 1.24 Severe COPD FEV1 of 40%, maintained on budesonide and Duoneb nebs. (unable to do Trelegy) Obstructive sleep apnea syndrome with apnea-hypopnea index of 16, on CPAP with pressure of 12 History of pulmonary nodule, being followed on outpatient basis, 14 x 8 mm subpleural nodule in the superior segment of the left lower lobe History of renal cell carcinoma previous nephrectomy Chronic kidney disease, stage III, creatinine is at 1.24 History of L1 compression fracture and chronic back pain in addition to compression fracture of the L3-L4 Hypothyroidism Plan: Continue same management. Patient will be gradually weaned down on her FiO2 and currently she is down to 6 L. Will try to wean the patient down to a baseline of 5 L of oxygen if possible No evidence of pneumonia Continue empiric antibiotic coverage with IV Rocephin, and follow-up on the positive blood cultures, ID is on the case Check procalcitonin level is not elevated at 0.03 Check viral 4 Plex was negative for any viruses Continue DuoNeb updrafts Continue IV Solu-Medrol and prednisone burst taper probably within next 24 to 48 hours. Titrate oxygen to maintain saturation above 90% Will continue to follow
[2024-06-21 07:00] LABS: Basophils % (A) 0 %; Eosinophils % (A) 0 %; HCT 40.4 % (34.0-46.0); HGB 12.2 gm/dL (11.4-16.0); Hypochromasia Marked; Lymphocytes % (A) 8 %; MCH 30.1 pg (25.0-35.0); MCHC 30.3 g/dL (31.0-37.0); MCV 99.3 fL (80.0-100.0); Mean Platelet Volume 9.4; Monocytes # (A) 0.4 k/uL (0-1.0); Monocytes % (A) 3 %; Neutrophils # (A) 11.2 k/uL (1.3-7.7); Neutrophils % (A) 88 %; Platelet Count 180 k/uL (150-450); RBC 4.07 m/uL (3.80-5.40); RDW 12.8 % (11.5-15.5); WBC 12.7 k/uL (3.8-10.6)
[2024-06-21 07:25] LABS: ALT 22 U/L (4-34); AST 20 U/L (14-36); African American GFR (CKD) 68 (>60 ml/min/1.73 sqM); Alkaline Phosphatase 59 U/L (38-126); Anion Gap 3 mmol/L; Blood Urea Nitrogen 40 mg/dL (7-17); Calcium 8.5 mg/dL (8.4-10.2); Carbon Dioxide 34 mmol/L (22-30); Chloride 102 mmol/L (98-107); Glucose 111 mg/dL (74-99); Non-African American GFR(CKD) 59 (>60 ml/min/1.73 sqM); Potassium 4.7 mmol/L (3.5-5.1); Sodium 139 mmol/L (137-145); Total Bilirubin 0.3 mg/dL (0.2-1.3); Total Protein 5.5 g/dL (6.3-8.2)
--- NOTE | 2024-06-21 15:27 | P.PN ---
Subjective Progress Note Date: 06/21/24 Principal diagnosis: Reason for follow-up is positive blood culture Patient is a 63-year-old female with a past medical history significant for hypertension reflux COPD and asthma presenting to the hospital for evaluation of increasing shortness of breath diagnosed with COPD exacerbation with tracheobronchitis blood cultures were positive prompting this consultation. On today's evaluation that is 06/21/2024, the patient continues to be afebrile, the patient is on 6 L on oxygen and breathing slightly comfortably, the Pt denies having any chest pain or any worsening cough, the patient denies having any abdominal pain no vomiting or any diarrhea. Patient white count is 12.7, creatinine 1.02 blood culture repeat has been negative CT of the chest did show right lower lobe air bronchogram concerning for possible pneumonia Objective - Vital Signs Vital signs: Vital Signs Temp 98.4 F 06/21/24 08:02 Pulse 106 H 06/21/24 12:56 Resp 20 06/21/24 11:45 BP 150/91 06/21/24 11:45 Pulse Ox 91 L 06/21/24 11:45 FiO2 40 06/21/24 00:32 Intake & Output 06/20/24 06/21/24 06/21/24 18:59 06:59 18:59 Intake Total 354 260 10 Output Total 450 Balance 354 -190 10 Weight 73 kg Intake: IV 20 10 Invasive Line 2 10 Invasive Line 3 10 10 Oral 354 240 Output: Urine 450 Other: Voiding Method External Catheter External Catheter External Catheter # Voids 1 1 # Bowel Movements 1 - Exam GENERAL DESCRIPTION: Middle-age female lying in bed in no distress RESPIRATORY SYSTEM: Unlabored breathing , coarse breath sounds bilaterally HEART: S1 S2 regular rate and rhythm , ABDOMEN: Soft , no tenderness EXTREMITIES: No edema feet - Labs CBC & Chem 7: 06/21/24 06:25 06/21/24 06:25 Labs: Abnormal Lab Results - Last 24 Hours (Table) 06/21/24 06/21/24 Range/Units 06:25 06:25 WBC 12.7 H (3.8-10.6) k/uL MCHC 30.3 L (31.0-37.0) g/dL Neutrophils # 11.2 H (1.3-7.7) k/uL Carbon Dioxide 34 H (22-30) mmol/L BUN 40 H (7-17) mg/dL Glucose 111 H (74-99) mg/dL Total Protein 5.5 L (6.3-8.2) g/dL Albumin 3.0 L (3.5-5.0) g/dL Microbiology - Last 24 Hours (Table) 06/19/24 07:35 Blood Culture - Preliminary Blood 06/17/24 03:36 Blood Culture Gram Stain - Final Blood Blood Culture - Final S.hominis ss novobiosepticus Molecular ID Assessment and Plan (1) Bacteremia Current Visit: Yes Status: Acute Code(s): R78.81 - BACTEREMIA SNOMED Code(s): 6126822 (2) COPD exacerbation Current Visit: Yes Status: Acute Code(s): J44.1 - CHRONIC OBSTRUCTIVE PULMONARY DISEASE W (ACUTE) EXACERBATION SNOMED Code(s): 369345252 (3) Allergy to multiple antibiotics Current Visit: No Status: Acute Code(s): Z88.1 - ALLERGY STATUS TO OTHER ANTIBIOTIC AGENTS SNOMED Code(s): 730429911 (4) Leukocytosis Current Visit: No Status: Acute Code(s): D72.829 - ELEVATED WHITE BLOOD CELL COUNT, UNSPECIFIED SNOMED Code(s): 530547302 (5) Pneumonia Current Visit: No Status: Acute Code(s): J18.9 - PNEUMONIA, UNSPECIFIED ORGANISM SNOMED Code(s): 663974204 Plan: 1patient with a positive blood culture with Staphylococcus patient is likely staph epi and more likely skin contamination as the patient has no clinical disease to go along with it. 2patient with multiple antibiotic ALLERGIES that would limit the number of antibiotic safe to use. 3patient presented to hospital with increasing shortness of breath and cough more likely representing COPD exacerbation with tracheobronchitis, patient did have a CT of the chest with evidence of right lower lobe air bronchogram concer babita for possible pneumonia 4blood culture repeat has been negative however sputum has not been collected for now continue with empiric Rocephin patient white count is trending down Dictation was produced using [employer] software. please excuse any grammatical, word or spelling errors. Time with Patient: Less than 30
--- NOTE | 2024-06-21 16:13 | P.PN ---
Subjective Progress Note Date: 06/21/24 This is a very pleasant 63-year-old female, known history of severe COPD, her FEV1 is 60% of the predicted, also known to have history of obstructive sleep apnea, normally on CPAP at a pressure of 12 cm of water. She had previous history of renal cell carcinoma undergone previous right nephrectomy followed by targeted therapy. History of GERD, history of multiple admissions with COPD exacerbation in the past. She was just discharged September 15, 2023 for a COPD exacerbation including both hypoxic and hypercapnic respiratory failure requiring BiPAP support. The patient presented to the emergency department with worsening shortness of breath. She stated that her oxygen levels were dropping even on 3 and half liters of oxygen by nasal cannula. She was also utilizing an albuterol rescue inhaler. Based on that, she decided to come in to the emergency department. She denies having any chest pain. No hemoptysis. No pleurisy. Some mucus production. No chest pain. No nausea or emesis. No sw elling lower extremities. The white cell count of 14.7 with a hemoglobin 14.8 and a platelet count of 225. Normal coagulation profile. Sodium is at 140, BUN 21 with a creatinine 1.2. Serum bicarb is at 36. Viral 4 Plex has been negative. Troponins are negative. LFTs are normal and the procalcitonin level is at 0.03. I reviewed the chest x-ray from this current admission and it shows small amount of linear opacity in the left lower lung zone. This could be an area of atelectasis. For now, the patient on DuoNeb nebulized treatments [id number], she is on Perforomist and Pulmicort nebulized treatment twice a day. She is on IV Rocephin and she is also on IV Solu-Medrol 60 mg every 6 hours. She is on oxygen at 9 L with a pulse ox of 92%. Based on my records, the patient COPD is advanced. She has an FEV1 of 40% of predicted at baseline. Scan of the chest that was done on 12/24/2023 showed advanced COPD. Her previous described pneumonia in the lung bases improved and the patient continued to have some residual inflammatory changes in the lung bases and a stable 4 mm left upper lobe pulmonary nodule. The patient is a chronic smoker. She also has obstructive sleep apnea with an AHI of 16 maintained on CPAP therapy pressure of 12 cm of water. She has previous right n ephrectomy for an underlying renal cell carcinoma. No clear evidence of any pulmonary metastasis at this point. She also suffers from chronic history kidney disease and chronic compression fracture of the lumbar spine with moderate to severe compression at the level of L1 and mild to moderate comp ression fraction at the level of L3 and L4. She has utilized lumbar braces in the past. She also has previous history of C. difficile colitis. On 06/18/2024, the patient is being seen for a follow-up. The patient was hospitalized for an acute on top of chronic hypoxic respiratory failure. She is currently on 7 L of oxygen by nasal cannula. She was hospitalized for an acute COPD exacerbation. She typically uses oxygen at 3 to 4 L/min nasal cannula on outpatient basis. She has an FEV1 of 40% of predicted. She has also history of renal cell carcinoma and she has undergone previous nephrectomy along with chronic stage III kidney disease. Her condition is stable. She remains on DuoNeb of chest. She remains on IV Solu-Medrol. She remains on budesonide nebulized treatments twice a day. Rest of medications are essentially unchanged and the patient is on empiric antibiotic coverage with IV Rocephin. White cell count of 15.6 with a hemoglobin 14.2 and a platelet count of 186. BUN is 23 with a creatinine 1 and the sodium is at 140. The viral screen was negative. No chest pain. No pleurisy. No hemoptysis. No altered mentation. The blood culture is showing preliminary gram-positive cocci in clusters, likely contaminant. No signs of any septicemia at this point in time. 06/19/2024, the patient is being seen for a follow-up. The patient is feeling better compared to yesterday. She has been weaned down to 60 to the maximal nasal cannula with a pulse ox of 94%. Her baseline is at 5 L. She remains on DuoNeb updrafts, Pulmicort Respules, IV Solu-Medrol 60 mg every 6 hours. She is also on empiric antibiotic coverage with IV Rocephin. No chest pain. No hemoptysis. Her white cell count of 21 with a hemoglobin of 14.2 and a platelet count of 230.. 27 with a creatinine of 1.04 and a sodium levels at 143 and a potassium level is at 4.6. No chest pain. No altered mentation. No hemodynamic instability. Blood culture was positive for gram-positive cocci and clusters, likely contaminant. Noted, the patient's procalcitonin level was only at 0.03. ID is on the case. On 06/20/2024, the patient is being seen for a follow-up. The patient is stable. She is still on 6 L of oxygen by nasal cannula. Pulse ox in the order of 95%. Slow but ongoing improvement. D-dimer is at 0.44. The white cell count is 15.2 with a hemoglobin of 12.4 and a platelet count of 180. Electrolytes are unchanged. BUN is 35 with a creatinine of 1.05. Medications remain unchanged. The patient has no new specific complaints. Remains on IV Solu-Medrol. Remains on DuoNeb nebulized treatments [id number]. On 06/21/2024, the patient is being seen for a follow-up. The patient remained in 60s of oxygen nasal cannula. Attempts were done to wean the FiO2 further yesterday. Nevertheless, the patient desaturated and based on that the patient was kept on oxygen at 6 L nasal cannula. Her current pulse ox is 91%. She is using the incentive spirometer. No chest pain. No significant cough or sputum production. The white cell count of 12.7 with a hemoglobin of 12.2 and a platelet count of 180. Sodium is at 139, potassium is at 4.7, serum bicarb is at 34 with a BUN of 40 and a creatinine of 1.02. LFTs are normal. Also, the patient underwent a CAT scan of the chest that showed a right basilar atelectatic change, chronic interstitial scarring involving the lingula and some bronchiectatic changes in the left lower lobe. Mild aneurysmal dilatation of the ascending aorta and cholelithiasis and another 3.4 cm left adrenal adenoma. There was another enlarged lymph node in the para-aortic region measuring 4.4 x 3.2 cm in size and a biliary stent was noted. Compression fractions involving the thoracic and lumbar spine moderate to severe in nature. The blood culture was positive for Staph hominis 1 out of 2. ID is on the case. The patient was kept on IV Rocephin. Objective - Vital Signs Vital signs: Vital Signs Temp 98.4 F 06/21/24 08:02 Pulse 93 06/21/24 11:45 Resp 20 06/21/24 11:45 BP 150/91 06/21/24 11:45 Pulse Ox 91 L 06/21/24 11:45 FiO2 40 06/21/24 00:32 Intake & Output 06/20/24 06/21/24 06/21/24 18:59 06:59 18:59 Intake Total 354 260 10 Output Total 450 Balance 354 -190 10 Weight 73 kg Intake: IV 20 10 Invasive Line 2 10 Invasive Line 3 10 10 Oral 354 240 Output: Urine 450 Other: Voiding Method External Catheter External Catheter External Catheter # Voids 1 # Bowel Movements 1 - Exam GENERAL EXAM: Alert, active, 63-year-old female, sitting up in bed, on 6 L nasal cannula, comfortable in no apparent distress. HEAD: Normocephalic. EYES: Normal reaction of pupils, equal size. NOSE: Clear with pink turbinates. THROAT: No erythema or exudates. NECK: No masses, no JVD. CHEST: No chest wall deformity. LUNGS: Equal air entry with no crackles, wheeze, rhonchi or dullness. Marked diminished breath sounds bilaterally with scattered expiratory wheezes heard throughout the lung mandel. CVS: S1 and S2 normal with no audible murmur, regular rhythm. ABDOMEN: No hepatosplenomegaly, normal bowel sounds, no guarding or rigidity. SPINE: No scoliosis or deformity SKIN: No rashes CENTRAL NERVOUS SYSTEM: No focal deficits, tone is normal in all 4 extremities. EXTREMITIES: There is no peripheral edema. No clubbing, no cyanosis. Pe ripheral pulses are intact. - Labs CBC & Chem 7: 06/21/24 06:25 06/21/24 06:25 Labs: Abnormal Lab Results - Last 24 Hours (Table) 06/21/24 06/21/24 Range/Units 06:25 06:25 WBC 12.7 H (3.8-10.6) k/uL MCHC 30.3 L (31.0-37.0) g/dL Neutrophils # 11.2 H (1.3-7.7) k/uL Carbon Dioxide 34 H (22-30) mmol/L BUN 40 H (7-17) mg/dL Glucose 111 H (74-99) mg/dL Total Protein 5.5 L (6.3-8.2) g/dL Albumin 3.0 L (3.5-5.0) g/dL Microbiology - Last 24 Hours (Table) 06/19/24 07:35 Blood Culture - Preliminary Blood 06/17/24 03:36 Blood Culture Gram Stain - Final Blood Blood Culture - Final S.hominis ss novobiosepticus Molecular ID Assessment and Plan Plan: Acute on chronic hypoxic respiratory failure seconda secondary to COPD exacerbation and the patient is currently improving and she has been taken off the BiPAP and she has been weaned down to 6 L of oxygen by nasal cannula. Acute COPD exacerbation, no clear indication for underlying pneumonia. The patient is currently on empiric antibiotic coverage with IV Zosyn. CAT scan of the chest showed some bronchiectatic changes in left lung base, some chronic anterior scarring in the lingular region and right basilar scar. No acute ab normalities. acute on chronic hypoxic respiratory failure on 7 L of oxygen by nasal cannula, typically utilizes 3 to 4 L at home. Gram-positive cocci in the blood, likely contaminant. Awaiting final cultures. Patient is currently on IV Rocephin Chronic kidney disease, stage III. Creatinine is at 1.24 Severe COPD FEV1 of 40%, maintained on budesonide and Duoneb nebs. (unable to do Trelegy) Obstructive sleep apnea syndrome with apnea-hypopnea index of 16, on CPAP with pressure of 12 History of pulmonary nodule, being followed on outpatient basis, 14 x 8 mm subpleural nodule in the superior segment of the left lower lobe History of renal cell carcinoma previous nephrectomy Chronic kidney disease, stage III, creatinine is at 1.24 History of L1 compression fracture and chronic back pain in addition to compression fracture of the L3-L4 Hypothyroidism Cholelithiasis Adrenal adenoma Periaortic lymph node measuring 4 x 3 cm in size Staph hominis in the blood Plan: Continue same management. Patient will be gradually weaned down on her FiO2 and currently she is down to 6 L. Will try to wean the patient down to a baseline of 5 L of oxygen if possible No evidence of pneumonia, CAT scan of the chest was noted Continue empiric antibiotic coverage with IV Rocephin, and follow-up on the positive blood cultures, ID is on the case. Cultures are consistent with Staph hominis, 1 out of 2 Check procalcitonin level is not elevated at 0.03 Check viral 4 Plex was negative for any viruses Continue DuoNeb updrafts Continue IV Solu-Medrol and prednisone burst taper probably within next 24 to 48 hours. Titrate oxygen to maintain saturation above 90% Will continue to follow Time with Patient: Greater than 30
--- NOTE | 2024-06-22 01:10 | PN ---
PROGRESS NOTE DATE OF SERVICE: 06/21/2024 SUBJECTIVE: This 63-year-old woman, who was admitted with COPD exacerbation, still on 6 L. No chest pain. No palpitation. A chest CT scan showed right lower lobe opacity, atelectasis and streaky atelectasis also. There is a periaortic lymph node over the biliary stent. PAST MEDICAL HISTORY: Reviewed. REVIEW OF SYSTEMS: Fourteen-point review of systems negative except as mentioned earlier. CURRENT MEDICATIONS: Reviewed. PHYSICAL EXAMINATION: VITAL SIGNS: Pulse 95, blood pressure 126/73, and respirations 20. HEENT: Conjunctivae normal. NECK: No JVD. CARDIOVASCULAR: S1, S2 RESPIRATORY: Breath sounds diminished at the bases. Few scattered rhonchi. ABDOMEN: Soft and nontender. LABORATORY DATA: Noted. IMAGING DATA: CT scan reviewed. ASSESSMENT: 1. Chronic obstructive pulmonary disease acute exacerbation with acute purulent tracheobronchitis with acute hypoxic respiratory failure, status post BiPAP. 2. Right lower lobe opacity with air bronchograms and chronic atelectasis. 3. Interstitial scarring in the CAT scan. 4. Mild aneurysmal dilatation of the ascending aortic aneurysm. 5. Ascending aorta. 6. Periaortic enlarged lymph node. 7. Chronic kidney disease. 8. Hyperlipidemia. 9. Multiple complex medical issues including possible chronic liver disease. RECOMMENDATIONS: Recommend to continue current management and treatment. Otherwise, at this time, I would recommend closely follow with Primary Physician. Ensure oxygenation. Incentive spirometry. Once oxygen requirement is lower, then the patient could be discharged, and the patient with multiple abnormalities as mentioned. Recommend close followup in the outpatient setting. Discussed with Dr. Acosta. CT scan reviewed. MMODL / IJN: [id number] /
--- NOTE | 2024-06-22 14:00 | P.PN ---
Subjective Progress Note Date: 06/22/24 This is a very pleasant 63-year-old female, known history of severe COPD, her FEV1 is 60% of the predicted, also known to have history of obstructive sleep apnea, normally on CPAP at a pressure of 12 cm of water. She had previous history of renal cell carcinoma undergone previous right nephrectomy followed by targeted therapy. History of GERD, history of multiple admissions with COPD exacerbation in the past. She was just discharged September 15, 2023 for a COPD exacerbation including both hypoxic and hypercapnic respiratory failure requiring BiPAP support. The patient presented to the emergency department with worsening shortness of breath. She stated that her oxygen levels were dropping even on 3 and half liters of oxygen by nasal cannula. She was also utilizing an albuterol rescue inhaler. Based on that, she decided to come in to the emergency department. She denies having any chest pain. No hemoptysis. No pleurisy. Some mucus production. No chest pain. No nausea or emesis. No sw elling lower extremities. The white cell count of 14.7 with a hemoglobin 14.8 and a platelet count of 225. Normal coagulation profile. Sodium is at 140, BUN 21 with a creatinine 1.2. Serum bicarb is at 36. Viral 4 Plex has been negative. Troponins are negative. LFTs are normal and the procalcitonin level is at 0.03. I reviewed the chest x-ray from this current admission and it shows small amount of linear opacity in the left lower lung zone. This could be an area of atelectasis. For now, the patient on DuoNeb nebulized treatments [id number], she is on Perforomist and Pulmicort nebulized treatment twice a day. She is on IV Rocephin and she is also on IV Solu-Medrol 60 mg every 6 hours. She is on oxygen at 9 L with a pulse ox of 92%. Based on my records, the patient COPD is advanced. She has an FEV1 of 40% of predicted at baseline. Scan of the chest that was done on 12/24/2023 showed advanced COPD. Her previous described pneumonia in the lung bases improved and the patient continued to have some residual inflammatory changes in the lung bases and a stable 4 mm left upper lobe pulmonary nodule. The patient is a chronic smoker. She also has obstructive sleep apnea with an AHI of 16 maintained on CPAP therapy pressure of 12 cm of water. She has previous right n ephrectomy for an underlying renal cell carcinoma. No clear evidence of any pulmonary metastasis at this point. She also suffers from chronic history kidney disease and chronic compression fracture of the lumbar spine with moderate to severe compression at the level of L1 and mild to moderate comp ression fraction at the level of L3 and L4. She has utilized lumbar braces in the past. She also has previous history of C. difficile colitis. On 06/18/2024, the patient is being seen for a follow-up. The patient was hospitalized for an acute on top of chronic hypoxic respiratory failure. She is currently on 7 L of oxygen by nasal cannula. She was hospitalized for an acute COPD exacerbation. She typically uses oxygen at 3 to 4 L/min nasal cannula on outpatient basis. She has an FEV1 of 40% of predicted. She has also history of renal cell carcinoma and she has undergone previous nephrectomy along with chronic stage III kidney disease. Her condition is stable. She remains on DuoNeb of chest. She remains on IV Solu-Medrol. She remains on budesonide nebulized treatments twice a day. Rest of medications are essentially unchanged and the patient is on empiric antibiotic coverage with IV Rocephin. White cell count of 15.6 with a hemoglobin 14.2 and a platelet count of 186. BUN is 23 with a creatinine 1 and the sodium is at 140. The viral screen was negative. No chest pain. No pleurisy. No hemoptysis. No altered mentation. The blood culture is showing preliminary gram-positive cocci in clusters, likely contaminant. No signs of any septicemia at this point in time. 06/19/2024, the patient is being seen for a follow-up. The patient is feeling better compared to yesterday. She has been weaned down to 60 to the maximal nasal cannula with a pulse ox of 94%. Her baseline is at 5 L. She remains on DuoNeb updrafts, Pulmicort Respules, IV Solu-Medrol 60 mg every 6 hours. She is also on empiric antibiotic coverage with IV Rocephin. No chest pain. No hemoptysis. Her white cell count of 21 with a hemoglobin of 14.2 and a platelet count of 230.. 27 with a creatinine of 1.04 and a sodium levels at 143 and a potassium level is at 4.6. No chest pain. No altered mentation. No hemodynamic instability. Blood culture was positive for gram-positive cocci and clusters, likely contaminant. Noted, the patient's procalcitonin level was only at 0.03. ID is on the case. On 06/20/2024, the patient is being seen for a follow-up. The patient is stable. She is still on 6 L of oxygen by nasal cannula. Pulse ox in the order of 95%. Slow but ongoing improvement. D-dimer is at 0.44. The white cell count is 15.2 with a hemoglobin of 12.4 and a platelet count of 180. Electrolytes are unchanged. BUN is 35 with a creatinine of 1.05. Medications remain unchanged. The patient has no new specific complaints. Remains on IV Solu-Medrol. Remains on DuoNeb nebulized treatments [id number]. On 06/21/2024, the patient is being seen for a follow-up. The patient remained in 60s of oxygen nasal cannula. Attempts were done to wean the FiO2 further yesterday. Nevertheless, the patient desaturated and based on that the patient was kept on oxygen at 6 L nasal cannula. Her current pulse ox is 91%. She is using the incentive spirometer. No chest pain. No significant cough or sputum production. The white cell count of 12.7 with a hemoglobin of 12.2 and a platelet count of 180. Sodium is at 139, potassium is at 4.7, serum bicarb is at 34 with a BUN of 40 and a creatinine of 1.02. LFTs are normal. Also, the patient underwent a CAT scan of the chest that showed a right basilar atelectatic change, chronic interstitial scarring involving the lingula and some bronchiectatic changes in the left lower lobe. Mild aneurysmal dilatation of the ascending aorta and cholelithiasis and another 3.4 cm left adrenal adenoma. There was another enlarged lymph node in the para-aortic region measuring 4.4 x 3.2 cm in size and a biliary stent was noted. Compression fractions involving the thoracic and lumbar spine moderate to severe in nature. The blood culture was positive for Staph hominis 1 out of 2. ID is on the case. The patient was kept on IV Rocephin. 06/22/2024, the patient is being seen for a follow-up. The patient is currently down to 5 L of oxygen by nasal cannula. Continues to have congestion cough and chest tightness and wheeze although this is gradually improving. Remains on bronchodilators and steroids. She is on DuoNeb of chest. She is on IV Rocephin. She is on IV Solu-Medrol 60 mg every 6 hours. She remains on Lovenox for DVT prophylaxis. The white cell count of 12 with a hemoglobin of 12 and a platelet count of 180. Sodium is at 139, bicarb is at 34, BUN is 40 with a creatinine of 1.02. Blood culture was positive for Staph hominis. Objective - Vital Signs Vital signs: Vital Signs Temp 97.9 F 06/22/24 07:33 Pulse 100 06/22/24 08:24 Resp 20 06/22/24 08:00 BP 153/83 06/22/24 07:33 Pulse Ox 92 L 06/22/24 07:33 FiO2 40 06/22/24 00:48 Intake & Output 06/21/24 06/22/24 06/22/24 18:59 06:59 18:59 Intake Total 360 120 120 Output Total 500 Balance 360 -380 120 Weight 75 kg Intake: IV 20 Invasive Line 3 20 Oral 340 120 120 Output: Urine 500 Other: Voiding Method Bedside Commode Bedside Commode Bedside Commode # Voids 1 1 # Bowel Movements 1 - Exam GENERAL EXAM: Alert, active, 63-year-old female, sitting up in bed, on 6 L nasal cannula, comfortable in no apparent distress. HEAD: Normocephalic. EYES: Normal reaction of pupils, equal size. NOSE: Clear with pink turbinates. THROAT: No erythema or exudates. NECK: No masses, no JVD. CHEST: No chest wall deformity. LUNGS: Equal air entry with no crackles, wheeze, rhonchi or dullness. Marked diminished breath sounds bilaterally with scattered expiratory wheezes heard throughout the lung mandel. CVS: S1 and S2 normal with no audible murmur, regular rhythm. ABDOMEN: No hepatosplenomegaly, normal bowel sounds, no guarding or rigidity. SPINE: No scoliosis or deformity SKIN: No rashes CENTRAL NERVOUS SYSTEM: No focal deficits, tone is normal in all 4 extremities. EXTREMITIES: There is no peripheral edema. No clubbing, no cyanosis. Peripheral pulses are intact. - Labs CBC & Chem 7: 06/21/24 06:25 06/21/24 06:25 Labs: Microbiology - Last 24 Hours (Table) 06/19/24 07:35 Blood Culture - Preliminary Blood Assessment and Plan Plan: Acute on chronic hypoxic respiratory failure seconda secondary to COPD exacerbation and the patient is currently improving and she has been taken off the BiPAP and she has been weaned down to 6 L of oxygen by nasal cannula. Acute COPD exacerbation, no clear indication for underlying pneumonia. The patient is currently on empiric antibiotic coverage with IV Zosyn. CAT scan of the chest showed some bronchiectatic changes in left lung base, some chronic anterior scarring in the lingular region and right basilar scar. No acute abnormalities. acute on chronic hypoxic respiratory failure on 7 L of oxygen by nasal cannula, typically utilizes 3 to 4 L at home. Gram-positive cocci in the blood, likely contaminant. Awaiting final cultures. Patient is currently on IV Rocephin Chronic kidney disease, stage III. Creatinine is at 1.24 Severe COPD FEV1 of 40%, maintained on budesonide and Duoneb nebs. (unable to do Trelegy) Obstructive sleep apnea syndrome with apnea-hypopnea index of 16, on CPAP with pressure of 12 History of pulmonary nodule, being followed on outpatient basis, 14 x 8 mm subpleural nodule in the superior segment of the left lower lobe History of renal cell carcinoma previous nephrectomy Chronic kidney disease, stage III, creatinine is at 1.24 History of L1 compression fracture and chronic back pain in addition to compression fracture of the L3-L4 Hypothyroidism Cholelithiasis Adrenal adenoma Periaortic lymph node measuring 4 x 3 cm in size Staph hominis in the blood Plan: Continues to improve clinically. Modest improvement in oxygenation the patient is currently down to 5 L of O2 nasal cannula Continues on a combination of bronchodilators and steroids and antibiotics No evidence of pneumonia, CAT scan of the chest was noted Continue empiric antibiotic coverage with IV Rocephin, and follow-up on the positive blood cultures, ID is on the case. Cultures are consistent with Staph hominis, 1 out of 2 Check procalcitonin level is not elevated at 0.03 Check viral 4 Plex was negative for any viruses Continue DuoNeb updrafts Continue IV Solu-Medrol for another 24 hours Titrate oxygen to maintain saturation above 90% Will continue to follow Time with Patient: Greater than 30
--- NOTE | 2024-06-22 14:35 | P.PN ---
Subjective Progress Note Date: 06/22/24 Principal diagnosis: Reason for follow-up is positive blood culture Patient is a 63-year-old female with a past medical history significant for hypertension reflux COPD and asthma presenting to the hospital for evaluation of increasing shortness of breath diagnosed with COPD exacerbation with tracheobronchitis blood cultures were positive prompting this consultation. On today's evaluation that is 06/22/2024, patient did not have any fever and denies any chills, patient is breathing slightly comfortably on 5 L nasal cannula oxygen patient with no chest pain or any worsening cough patient did not have any abdominal pain nausea vomiting, did have some loose stool which is normal for patient according to her. Patient white count down to 12.7 as of yesterday no CBC was done today blood culture repeat has been negative sputum not collected Objective - Vital Signs Vital signs: Vital Signs Temp 97.9 F 06/22/24 07:33 Pulse 89 06/22/24 13:31 Resp 20 06/22/24 13:31 BP 156/83 06/22/24 11:22 Pulse Ox 92 L 06/22/24 11:22 FiO2 40 06/22/24 00:48 Intake & Output 06/21/24 06/22/24 06/22/24 18:59 06:59 18:59 Intake Total 360 120 120 Output Total 500 Balance 360 -380 120 Weight 75 kg Intake: IV 20 Invasive Line 3 20 Oral 340 120 120 Output: Urine 500 Other: Voiding Method Bedside Commode Bedside Commode Bedside Commode # Voids 1 1 # Bowel Movements 1 - Exam GENERAL DESCRIPTION: Middle-age female lying in bed in no distress RESPIRATORY SYSTEM: Unlabored breathing , coarse breath sounds bilaterally HEART: S1 S2 regular rate and rhythm , ABDOMEN: Soft , no tenderness EXTREMITIES: No edema feet - Labs CBC & Chem 7: 06/21/24 06:25 06/21/24 06:25 Labs: Microbiology - Last 24 Hours (Table) 06/19/24 07:35 Blood Culture - Preliminary Blood Assessment and Plan (1) Bacteremia Current Visit: Yes Status: Acute Code(s): R78.81 - BACTEREMIA SNOMED Code(s): 0861200 (2) COPD exacerbation Current Visit: Yes Status: Acute Code(s): J44.1 - CHRONIC OBSTRUCTIVE PULMONARY DISEASE W (ACUTE) EXACERBATION SNOMED Code(s): 071563773 (3) Allergy to multiple antibiotics Current Visit: No Status: Acute Code(s): Z88.1 - ALLERGY STATUS TO OTHER ANTIBIOTIC AGENTS SNOMED Code(s): 164518601 (4) Leukocytosis Current Visit: No Status: Acute Code(s): D72.829 - ELEVATED WHITE BLOOD CELL COUNT, UNSPECIFIED SNOMED Code(s): 322165630 (5) Pneumonia Current Visit: No Status: Acute Code(s): J18.9 - PNEUMONIA, UNSPECIFIED ORGANISM SNOMED Code(s): 295489149 Plan: 1patient with a positive blood culture with Staphylococcus patient is likely staph epi and more likely skin contamination as the patient has no clinical disease to go along with it. 2patient with multiple antibiotic ALLERGIES that would limit the number of antibiotic safe to use. 3patient presented to hospital with increasing shortness of breath and cough more likely representing COPD exacerbation with tracheobronchitis, patient did have a CT of the chest with evidence of right lower lobe air bronchogram concerning for possible pneumonia, blood culture repeat has been negative, sputum has not been collected. 4patient to continue with empiric Rocephin and monitor clinical course closely Dictation was produced using [employer] dictation software. please excuse any grammatical, word or spelling errors.
--- NOTE | 2024-06-22 22:29 | PN ---
PROGRESS NOTE DATE OF SERVICE: 06/22/2024 SUBJECTIVE: This is a 63-year-old woman, who was admitted with COPD with acute exacerbation. She is on 5 L nasal cannula. No chest pain. No palpitation. PHYSICAL EXAMINATION: VITAL SIGNS: Pulse is 94, blood pressure is 156/83, respirations 20. CHEST: A few scattered rhonchi. ABDOMEN: Soft and nontender. NERVOUS SYSTEM: Nonfocal. LABORATORY DATA: Reviewed. ASSESSMENT: 1. Chronic obstructive pulmonary disease with acute exacerbation with acute purulent tracheobronchitis with acute hypoxic respiratory failure, status post BiPAP. 2. Right lower lobe opacity with air bronchogram and chronic atelectasis. 3. Possible contaminant blood culture. 4. Interstitial scarring on the CT scan. 5. Mild aneurysmal dilatation of the ascending aortic aneurysm. 6. Multiple complex medical issues. RECOMMENDATIONS: Recommended to continue with current management, continue with symptomatic treatment. Continue with antibiotics, bronchodilators, taper off the steroids further. Continue to monitor. Closely follow with multiple consultants. Further recommendations to follow. MMODL / IJN: [id number] /
--- NOTE | 2024-06-23 11:08 | P.PN ---
Subjective Progress Note Date: 06/23/24 This is a very pleasant 63-year-old female, known history of severe COPD, her FEV1 is 60% of the predicted, also known to have history of obstructive sleep apnea, normally on CPAP at a pressure of 12 cm of water. She had previous history of renal cell carcinoma undergone previous right nephrectomy followed by targeted therapy. History of GERD, history of multiple admissions with COPD exacerbation in the past. She was just discharged September 15, 2023 for a COPD exacerbation including both hypoxic and hypercapnic respiratory failure requiring BiPAP support. The patient presented to the emergency department with worsening shortness of breath. She stated that her oxygen levels were dropping even on 3 and half liters of oxygen by nasal cannula. She was also utilizing an albuterol rescue inhaler. Based on that, she decided to come in to the emergency department. She denies having any chest pain. No hemoptysis. No pleurisy. Some mucus production. No chest pain. No nausea or emesis. No sw elling lower extremities. The white cell count of 14.7 with a hemoglobin 14.8 and a platelet count of 225. Normal coagulation profile. Sodium is at 140, BUN 21 with a creatinine 1.2. Serum bicarb is at 36. Viral 4 Plex has been negative. Troponins are negative. LFTs are normal and the procalcitonin level is at 0.03. I reviewed the chest x-ray from this current admission and it shows small amount of linear opacity in the left lower lung zone. This could be an area of atelectasis. For now, the patient on DuoNeb nebulized treatments [id number], she is on Perforomist and Pulmicort nebulized treatment twice a day. She is on IV Rocephin and she is also on IV Solu-Medrol 60 mg every 6 hours. She is on oxygen at 9 L with a pulse ox of 92%. Based on my records, the patient COPD is advanced. She has an FEV1 of 40% of predicted at baseline. Scan of the chest that was done on 12/24/2023 showed advanced COPD. Her previous described pneumonia in the lung bases improved and the patient continued to have some residual inflammatory changes in the lung bases and a stable 4 mm left upper lobe pulmonary nodule. The patient is a chronic smoker. She also has obstructive sleep apnea with an AHI of 16 maintained on CPAP therapy pressure of 12 cm of water. She has previous right n ephrectomy for an underlying renal cell carcinoma. No clear evidence of any pulmonary metastasis at this point. She also suffers from chronic history kidney disease and chronic compression fracture of the lumbar spine with moderate to severe compression at the level of L1 and mild to moderate comp ression fraction at the level of L3 and L4. She has utilized lumbar braces in the past. She also has previous history of C. difficile colitis. On 06/18/2024, the patient is being seen for a follow-up. The patient was hospitalized for an acute on top of chronic hypoxic respiratory failure. She is currently on 7 L of oxygen by nasal cannula. She was hospitalized for an acute COPD exacerbation. She typically uses oxygen at 3 to 4 L/min nasal cannula on outpatient basis. She has an FEV1 of 40% of predicted. She has also history of renal cell carcinoma and she has undergone previous nephrectomy along with chronic stage III kidney disease. Her condition is stable. She remains on DuoNeb of chest. She remains on IV Solu-Medrol. She remains on budesonide nebulized treatments twice a day. Rest of medications are essentially unchanged and the patient is on empiric antibiotic coverage with IV Rocephin. White cell count of 15.6 with a hemoglobin 14.2 and a platelet count of 186. BUN is 23 with a creatinine 1 and the sodium is at 140. The viral screen was negative. No chest pain. No pleurisy. No hemoptysis. No altered mentation. The blood culture is showing preliminary gram-positive cocci in clusters, likely contaminant. No signs of any septicemia at this point in time. 06/19/2024, the patient is being seen for a follow-up. The patient is feeling better compared to yesterday. She has been weaned down to 60 to the maximal nasal cannula with a pulse ox of 94%. Her baseline is at 5 L. She remains on DuoNeb updrafts, Pulmicort Respules, IV Solu-Medrol 60 mg every 6 hours. She is also on empiric antibiotic coverage with IV Rocephin. No chest pain. No hemoptysis. Her white cell count of 21 with a hemoglobin of 14.2 and a platelet count of 230.. 27 with a creatinine of 1.04 and a sodium levels at 143 and a potassium level is at 4.6. No chest pain. No altered mentation. No hemodynamic instability. Blood culture was positive for gram-positive cocci and clusters, likely contaminant. Noted, the patient's procalcitonin level was only at 0.03. ID is on the case. On 06/20/2024, the patient is being seen for a follow-up. The patient is stable. She is still on 6 L of oxygen by nasal cannula. Pulse ox in the order of 95%. Slow but ongoing improvement. D-dimer is at 0.44. The white cell count is 15.2 with a hemoglobin of 12.4 and a platelet count of 180. Electrolytes are unchanged. BUN is 35 with a creatinine of 1.05. Medications remain unchanged. The patient has no new specific complaints. Remains on IV Solu-Medrol. Remains on DuoNeb nebulized treatments [id number]. On 06/21/2024, the patient is being seen for a follow-up. The patient remained in 60s of oxygen nasal cannula. Attempts were done to wean the FiO2 further yesterday. Nevertheless, the patient desaturated and based on that the patient was kept on oxygen at 6 L nasal cannula. Her current pulse ox is 91%. She is using the incentive spirometer. No chest pain. No significant cough or sputum production. The white cell count of 12.7 with a hemoglobin of 12.2 and a platelet count of 180. Sodium is at 139, potassium is at 4.7, serum bicarb is at 34 with a BUN of 40 and a creatinine of 1.02. LFTs are normal. Also, the patient underwent a CAT scan of the chest that showed a right basilar atelectatic change, chronic interstitial scarring involving the lingula and some bronchiectatic changes in the left lower lobe. Mild aneurysmal dilatation of the ascending aorta and cholelithiasis and another 3.4 cm left adrenal adenoma. There was another enlarged lymph node in the para-aortic region measuring 4.4 x 3.2 cm in size and a biliary stent was noted. Compression fractions involving the thoracic and lumbar spine moderate to severe in nature. The blood culture was positive for Staph hominis 1 out of 2. ID is on the case. The patient was kept on IV Rocephin. 06/22/2024, the patient is being seen for a follow-up. The patient is currently down to 5 L of oxygen by nasal cannula. Continues to have congestion cough and chest tightness and wheeze although this is gradually improving. Remains on bronchodilators and steroids. She is on DuoNeb of chest. She is on IV Rocephin. She is on IV Solu-Medrol 60 mg every 6 hours. She remains on Lovenox for DVT prophylaxis. The white cell count of 12 with a hemoglobin of 12 and a platelet count of 180. Sodium is at 139, bicarb is at 34, BUN is 40 with a creatinine of 1.02. Blood culture was positive for Staph hominis. 06/23/2024, the patient is being seen for a follow-up. Resting comfortably in bed on 5.5 L of oxygen by nasal cannula. Remains on bronchodilators and steroids. No significant events overnight. White cell count has dropped down to 12.7 with a hemoglobin 12.2 and a platelet count of 180. BUN is 40 with a creatinine of 1.02 and K level is at 4.7. Resting comfortably in bed. Tolerating her diet with no nausea or vomiting. Objective - Vital Signs Vital signs: Vital Signs Temp 98.0 F 06/23/24 08:00 Pulse 90 06/23/24 08:29 Resp 20 06/23/24 08:00 BP 148/82 06/23/24 08:00 Pulse Ox 92 L 06/23/24 08:00 FiO2 40 06/23/24 00:40 Intake & Output 06/22/24 06/23/24 06/23/24 18:59 06:59 18:59 Intake Total 240 480 720 Balance 240 480 720 Weight 77 kg Intake: Oral 240 480 720 Other: Voiding Method Bedside Commode Bedside Commode Bedside Commode # Voids 4 1 # Bowel Movements 1 1 - Exam GENERAL EXAM: Alert, active, 63-year-old female, sitting up in bed, on 6 L nasal cannula, comfortable in no apparent distress. HEAD: Normocephalic. EYES: Normal reaction of pupils, equal size. NOSE: Clear with pink turbinates. THROAT: No erythema or exudates. NECK: No masses, no JVD. CHEST: No chest wall deformity. LUNGS: Equal air entry with no crackles, wheeze, rhonchi or dullness. Marked diminished breath sounds bilaterally with scattered expiratory wheezes heard throughout the lung mandel. CVS: S1 and S2 normal with no audible murmur, regular rhythm. ABDOMEN: No hepatosplenomegaly, normal bowel sounds, no guarding or rigidity. SPINE: No scoliosis or deformity SKIN: No rashes CENTRAL NERVOUS SYSTEM: No focal deficits, tone is normal in all 4 extremities. EXTREMITIES: There is no peripheral edema. No clubbing, no cyanosis. Peripheral pulses are intact. - Labs CBC & Chem 7: 06/21/24 06:25 06/21/24 06:25 Labs: Microbiology - Last 24 Hours (Table) 06/19/24 07:35 Blood Culture - Preliminary Blood Assessment and Plan Plan: Acute on chronic hypoxic respiratory failure seconda secondary to COPD exacerbation and the patient is currently improving and she has been taken off the BiPAP and she has been weaned down to 5 L of oxygen by nasal cannula. Acute COPD exacerbation, no clear indication for underlying pneumonia. The patient is currently on empiric antibiotic coverage with IV Zosyn. CAT scan of the chest showed some bronchiectatic changes in left lung base, some chronic ant erior scarring in the lingular region and right basilar scar. No acute abnormalities. acute on chronic hypoxic respiratory failure on 5 L of oxygen by nasal cannula, typically utilizes 3 to 4 L at home. Gram-positive cocci in the blood, likely contaminant. Awaiting final cultures. Patient is currently on IV Rocephin Severe COPD FEV1 of 40%, maintained on budesonide and Duoneb nebs. (unable to do Trelegy) Obstructive sleep apnea syndrome with apnea-hypopnea index of 16, on CPAP with pressure of 12 History of pulmonary nodule, being followed on outpatient basis, 14 x 8 mm subpleural nodule in the superior segment of the left lower lobe History of renal cell carcinoma previous nephrectomy History of L1 compression fracture and chronic back pain in addition to compression fracture of the L3-L4 Hypothyroidism Cholelithiasis Adrenal adenoma Periaortic lymph node measuring 4 x 3 cm in size Staph hominis in the blood Plan: Clinically stable along with improvement in oxygenation the patient is currently down to 5 L of O2 nasal cannula Continues on a combination of bronchodilators and steroids and antibiotics No evidence of pneumonia, CAT scan of the chest was noted Continue empiric antibiotic coverage with IV Rocephin, and follow-up on the positive blood cultures, ID is on the case. Cultures are consistent with Staph hominis, 1 out of 2 Check procalcitonin level is not elevated at 0.03 Check viral 4 Plex was negative for any viruses Continue DuoNeb updrafts Continue IV Solu-Medrol for another 24 hours and taper the patient to prednisone as of tomorrow Titrate oxygen to maintain saturation above 90% Will continue to follow Time with Patient: Greater than 30
--- NOTE | 2024-06-23 13:12 | P.PN ---
Subjective Progress Note Date: 06/23/24 Principal diagnosis: Reason for follow-up is positive blood culture Patient is a 63-year-old female with a past medical history significant for hypertension reflux COPD and asthma presenting to the hospital for evaluation of increasing shortness of breath diagnosed with COPD exacerbation with tracheobronchitis blood cultures were positive prompting this consultation. On today's evaluation that is 06/23/2024, Patient is afebrile patient is currently on 5.5 L nasal oxygen admission breathing slightly comfortably patient denies having any chest pain or worsening cough no nausea vomiting no abdominal pain no diarrhea. No new lab has been obtained today blood culture repeat has been negative Objective - Vital Signs Vital signs: Vital Signs Temp 98.0 F 06/23/24 08:00 Pulse 90 06/23/24 11:37 Resp 20 06/23/24 11:30 BP 146/88 06/23/24 11:30 Pulse Ox 93 L 06/23/24 11:30 FiO2 40 06/23/24 00:40 Intake & Output 06/22/24 06/23/24 06/23/24 18:59 06:59 18:59 Intake Total 240 480 720 Balance 240 480 720 Weight 77 kg Intake: Oral 240 480 720 Other: Voiding Method Bedside Commode Bedside Commode Bedside Commode # Voids 4 1 # Bowel Movements 1 1 - Exam GENERAL DESCRIPTION: Middle-age female lying in bed in no distress RESPIRATORY SYSTEM: Unlabored breathing , coarse breath sounds bilaterally HEART: S1 S2 regular rate and rhythm , ABDOMEN: Soft , no tenderness EXTREMITIES: No edema feet - Labs CBC & Chem 7: 06/21/24 06:25 06/21/24 06:25 Labs: Microbiology - Last 24 Hours (Table) 06/19/24 07:35 Blood Culture - Preliminary Blood Assessment and Plan (1) Bacteremia Current Visit: Yes Status: Acute Code(s): R78.81 - BACTEREMIA SNOMED Code(s): 7236894 (2) COPD exacerbation Current Visit: Yes Status: Acute Code(s): J44.1 - CHRONIC OBSTRUCTIVE PULMONARY DISEASE W (ACUTE) EXACERBATION SNOMED Code(s): 186087898 (3) Allergy to multiple antibiotics Current Visit: No Status: Acute Code(s): Z88.1 - ALLERGY STATUS TO OTHER ANTIBIOTIC AGENTS SNOMED Code(s): 076479615 (4) Leukocytosis Current Visit: No Status: Acute Code(s): D72.829 - ELEVATED WHITE BLOOD CELL COUNT, UNSPECIFIED SNOMED Code(s): 109235467 (5) Pneumonia Current Visit: No Status: Acute Code(s): J18.9 - PNEUMONIA, UNSPECIFIED ORGANISM SNOMED Code(s): 832801897 Plan: 1patient with a positive blood culture with Staphylococcus patient is likely staph epi and more likely skin contamination as the patient has no clinical disease to go along with it. 2patient with multiple antibiotic ALLERGIES that would limit the number of antibiotic safe to use. 3patient presented to hospital with increasing shortness of breath and cough more likely representing COPD exacerbation with tracheobronchitis, patient did have a CT of the chest with evidence of right lower lobe air bronchogram concern ing for possible pneumonia, blood culture repeat has been negative, sputum has not been collected. 4patient mentions some improvement in the symptoms to continue Rocephin and monitor clinical course closely Dictation was produced using [employer] dictation software. please excuse any grammatical, word or spelling errors.
--- NOTE | 2024-06-24 05:38 | PN ---
PROGRESS NOTE DATE OF SERVICE: 06/23/2024 SUBJECTIVE: This is a 63-year-old woman, who was admitted with COPD acute exacerbation, is still on 5.5 L oxygen. No chest pain. No palpitation. OBJECTIVE: VITAL SIGNS: Pulse 82, blood pressure 135/84, respirations 20. CHEST: Bilateral scattered rhonchi and crackles. ABDOMEN: Soft. NERVOUS SYSTEM: Nonfocal. LABORATORY DATA: Reviewed. ASSESSMENT: 1. Chronic obstructive pulmonary disease acute exacerbation with acute purulent tracheobronchitis with acute hypoxic respiratory failure, status post BiPAP. 2. Right lower lobe opacity with air bronchogram and chronic atelectasis. 3. Possible contaminated blood culture. 4. Interstitial scarring in the CT scan. RECOMMENDATIONS: Recommend to continue current management and continue symptomatic treatment. Continue with bronchodilators. I will try to titrate the oxygen down. Closely follow with Pulmonary. Guarded prognosis. Further recommendations to follow. MMODL / IJN: [id number] /
[2024-06-24 08:31] VITALS: BMI 29.0
--- NOTE | 2024-06-24 11:42 | P.PN ---
Subjective Progress Note Date: 06/24/24 Principal diagnosis: Reason for follow-up is positive blood culture Patient is a 63-year-old female with a past medical history significant for hypertension reflux COPD and asthma presenting to the hospital for evaluation of increasing shortness of breath diagnosed with COPD exacerbation with tracheobronchitis blood cultures were positive prompting this consultation. On today's evaluation that is 06/24/2024, patient has been afebrile, patient is complaining of more shortness of breath and has been put on a BiPAP currently on 40% FiO2 P denies having any chest pain mention more congested but not bring up any sputum no vomiting or diarrhea. Patient did not have lab draw today Objective - Vital Signs Vital signs: Vital Signs Temp 98.6 F 06/23/24 19:58 Pulse 88 06/24/24 09:35 Resp 22 06/24/24 07:53 BP 146/85 06/24/24 07:53 Pulse Ox 90 L 06/24/24 07:53 FiO2 40 06/24/24 09:20 Intake & Output 06/23/24 06/24/24 06/24/24 18:59 06:59 18:59 Intake Total 956 118 Output Total 650 Balance 956 -650 118 Weight 72 kg 72 kg Intake: Oral 956 118 Output: Urine 650 Other: Voiding Method Bedside Commode Bedside Commode # Voids 1 # Bowel Movements 1 - Exam GENERAL DESCRIPTION: Middle-age female lying in bed in no distress RESPIRATORY SYSTEM: Unlabored breathing , coarse breath sounds bilaterally HEART: S1 S2 regular rate and rhythm , ABDOMEN: Soft , no tenderness EXTREMITIES: No edema feet - Labs CBC & Chem 7: 06/21/24 06:25 06/21/24 06:25 Assessment and Plan (1) Bacteremia Current Visit: Yes Status: Acute Code(s): R78.81 - BACTEREMIA SNOMED Code(s): 1143156 (2) COPD exacerbation Current Visit: Yes Status: Acute Code(s): J44.1 - CHRONIC OBSTRUCTIVE PULMONARY DISEASE W (ACUTE) EXACERBATION SNOMED Code(s): 376377225 (3) Allergy to multiple antibiotics Current Visit: No Status: Acute Code(s): Z88.1 - ALLERGY STATUS TO OTHER ANTIBIOTIC AGENTS SNOMED Code(s): 112446351 (4) Leukocytosis Current Visit: No Status: Acute Code(s): D72.829 - ELEVATED WHITE BLOOD CELL COUNT, UNSPECIFIED SNOMED Code(s): 537903187 (5) Pneumonia Current Visit: No Status: Acute Code(s): J18.9 - PNEUMONIA, UNSPECIFIED ORGANISM SNOMED Code(s): 301975912 Plan: 1patient with a positive blood culture with Staphylococcus patient is likely staph epi and more likely skin contamination as the patient has no clinical disease to go along with it. 2patient with multiple antibiotic ALLERGIES that would limit the number of antibiotic safe to use. 3patient did have worsening of her respiratory symptoms we will go ahead and check a chest x-ray try to obtain a sputum will check CBC CRP and procalcitonin Dictation was produced using [employer] dictation software. please excuse any grammatical, word or spelling errors. Time with Patient: Less than 30
--- NOTE | 2024-06-24 12:01 | XR ---
EXAMINATION TYPE: XR chest 1V portable DATE OF EXAM: 06/24/2024 CLINICAL INDICATION: Female, 63 years old with history of SOB, progress study. TECHNIQUE: Single AP portable upright view of the chest is obtained. COMPARISON: Chest CT from 4 days earlier FINDINGS: There is persistent bibasilar increased opacity. Upper lungs remain clear. Cardiac silhoue tte size is stable and upper limits of normal. Osseous structures are demineralized. IMPRESSION: Persistent bibasilar acute infiltrates and/or atelectasis [facility] Ravinder Pollock, , 06/24/2024 11:59 AM
[2024-06-24 12:09] LABS: Basophils % (A) 0 %; Eosinophils # (A) 0.1 k/uL (0-0.7); Eosinophils % (A) 0 %; HCT 44.6 % (34.0-46.0); Hypochromasia Moderate; Lymphocytes # (A) 0.7 k/uL (1.0-4.8); Lymphocytes % (A) 5 %; MCH 30.5 pg (25.0-35.0); MCHC 31.3 g/dL (31.0-37.0); MCV 97.5 fL (80.0-100.0); Mean Platelet Volume 9.5; Monocytes # (A) 0.6 k/uL (0-1.0); Monocytes % (A) 5 %; Neutrophils # (A) 12.6 k/uL (1.3-7.7); Neutrophils % (A) 89 %; Platelet Count 184 k/uL (150-450); RBC 4.58 m/uL (3.80-5.40); RDW 12.9 % (11.5-15.5); WBC 14.1 k/uL (3.8-10.6)
[2024-06-24 12:26] LABS: African American GFR (CKD) 68 (>60 ml/min/1.73 sqM); Anion Gap 2 mmol/L; Blood Urea Nitrogen 44 mg/dL (7-17); Calcium 8.5 mg/dL (8.4-10.2); Carbon Dioxide 37 mmol/L (22-30); Chloride 99 mmol/L (98-107); Glucose 103 mg/dL (74-99); Non-African American GFR(CKD) 59 (>60 ml/min/1.73 sqM); Potassium 4.7 mmol/L (3.5-5.1); Sodium 138 mmol/L (137-145)
[2024-06-24 14:12] LABS: C Reactive Protein <0.5 mg/dL (<1.0)
[2024-06-24] MEDS: FORMOTEROL FUMARATE 20 MCG/2 ML NEBU INHALATION SCH (16:38)
--- NOTE | 2024-06-24 16:56 | P.PN ---
Subjective Progress Note Date: 06/24/24 This is a very pleasant 63-year-old female, known history of severe COPD, her FEV1 is 60% of the predicted, also known to have history of obstructive sleep apnea, normally on CPAP at a pressure of 12 cm of water. She had previous history of renal cell carcinoma undergone previous right nephrectomy followed by targeted therapy. History of GERD, history of multiple admissions with COPD exacerbation in the past. She was just discharged September 15, 2023 for a COPD exacerbation including both hypoxic and hypercapnic respiratory failure requiring BiPAP support. The patient presented to the emergency department with worsening shortness of breath. She stated that her oxygen levels were dropping even on 3 and half liters of oxygen by nasal cannula. She was also utilizing an albuterol rescue inhaler. Based on that, she decided to come in to the emergency department. She denies having any chest pain. No hemoptysis. No pleurisy. Some mucus production. No chest pain. No nausea or emesis. No swe lling lower extremities. The white cell count of 14.7 with a hemoglobin 14.8 and a platelet count of 225. Normal coagulation profile. Sodium is at 140, BUN 21 with a creatinine 1.2. Serum bicarb is at 36. Viral 4 Plex has been negative. Troponins are negative. LFTs are normal and the procalcitonin level is at 0.03. I reviewed the chest x-ray from this current admission and it shows small amount of linear opacity in the left lower lung zone. This could be an area of atelectasis. For now, the patient on DuoNeb nebulized treatments [id number], she is on Perforomist and Pulmicort nebulized treatment twice a day. She is on IV Rocephin and she is also on IV Solu-Medrol 60 mg every 6 hours. She is on oxygen at 9 L with a pulse ox of 92%. Based on my records, the patient COPD is advanced. She has an FEV1 of 40% of predicted at baseline. Scan of the chest that was done on 12/24/2023 showed advanced COPD. Her previous described pneumonia in the lung bases improved and the patient continued to have some residual inflammatory changes in the lung bases and a stable 4 mm left upper lobe pulmonary nodule. The patient is a chronic smoker. She also has obstructive sleep apnea with an AHI of 16 maintained on CPAP therapy pressure of 12 cm of water. She has previous right nephrectomy for an underlying renal cell carcinoma. No clear evidence of any pulmonary metastasis at this point. She also suffers from chronic history kidney disease and chronic compression fracture of the lumbar spine with moderate to severe compression at the level of L1 and mild to moderate compr ession fraction at the level of L3 and L4. She has utilized lumbar braces in the past. She also has previous history of C. difficile colitis. On 06/18/2024, the patient is being seen for a follow-up. The patient was hospitalized for an acute on top of chronic hypoxic respiratory failure. She is currently on 7 L of oxygen by nasal cannula. She was hospitalized for an acute COPD exacerbation. She typically uses oxygen at 3 to 4 L/min nasal cannula on outpatient basis. She has an FEV1 of 40% of predicted. She has also history of renal cell carcinoma and she has undergone previous nephrectomy along with chronic stage III kidney disease. Her condition is stable. She remains on DuoNeb of chest. She remains on IV Solu-Medrol. She remains on budesonide nebulized treatments twice a day. Rest of medications are essentially unchanged and the patient is on empiric antibiotic coverage with IV Rocephin. White cell count of 15.6 with a hemoglobin 14.2 and a platelet count of 186. BUN is 23 with a creatinine 1 and the sodium is at 140. The viral screen was negative. No chest pain. No pleurisy. No hemoptysis. No altered mentation. The blood culture is showing preliminary gram-positive cocci in clusters, likely contaminant. No signs of any septicemia at this point in time. 06/19/2024, the patient is being seen for a follow-up. The patient is feeling better compared to yesterday. She has been weaned down to 60 to the maximal nasal cannula with a pulse ox of 94%. Her baseline is at 5 L. She remains on DuoNeb updrafts, Pulmicort Respules, IV Solu-Medrol 60 mg every 6 hours. She is also on empiric antibiotic coverage with IV Rocephin. No chest pain. No hemoptysis. Her white cell count of 21 with a hemoglobin of 14.2 and a platelet count of 230.. 27 with a creatinine of 1.04 and a sodium levels at 143 and a potassium level is at 4.6. No chest pain. No altered mentation. No hemodynamic instability. Blood culture was positive for gram-positive cocci and clusters, likely contaminant. Noted, the patient's procalcitonin level was only at 0.03. ID is on the case. On 06/20/2024, the patient is being seen for a follow-up. The patient is stable. She is still on 6 L of oxygen by nasal cannula. Pulse ox in the order of 95%. Slow but ongoing improvement. D-dimer is at 0.44. The white cell count is 15.2 with a hemoglobin of 12.4 and a platelet count of 180. Electrolytes are unchanged. BUN is 35 with a creatinine of 1.05. Medications remain unchanged. The patient has no new specific complaints. Remains on IV Solu-Medrol. Remains on DuoNeb nebulized treatments [id number]. On 06/21/2024, the patient is being seen for a follow-up. The patient remained in 60s of oxygen nasal cannula. Attempts were done to wean the FiO2 further yesterday. Nevertheless, the patient desaturated and based on that the patient was kept on oxygen at 6 L nasal cannula. Her current pulse ox is 91%. She is using the incentive spirometer. No chest pain. No significant cough or sputum production. The white cell count of 12.7 with a hemoglobin of 12.2 and a platelet count of 180. Sodium is at 139, potassium is at 4.7, serum bicarb is at 34 with a BUN of 40 and a creatinine of 1.02. LFTs are normal. Also, the patient underwent a CAT scan of the chest that showed a right basilar atelectatic change, chronic interstitial scarring involving the lingula and some bronchiectatic changes in the left lower lobe. Mild aneurysmal dilatation of the ascending aorta and cholelithiasis and another 3.4 cm left adrenal adenoma. There was another enlarged lymph node in the para-aortic region measuring 4.4 x 3.2 cm in size and a biliary stent was noted. Compression fractions involving the thoracic and lumbar spine moderate to severe in nature. The blood culture was positive for Staph hominis 1 out of 2. ID is on the case. The patient was kept on IV Rocephin. 06/22/2024, the patient is being seen for a follow-up. The patient is currently down to 5 L of oxygen by nasal cannula. Continues to have congestion cough and chest tightness and wheeze although this is gradually improving. Remains on bronchodilators and steroids. She is on DuoNeb of chest. She is on IV Rocephin. She is on IV Solu-Medrol 60 mg every 6 hours. She remains on Lovenox for DVT prophylaxis. The white cell count of 12 with a hemoglobin of 12 and a platelet count of 180. Sodium is at 139, bicarb is at 34, BUN is 40 with a creatinine of 1.02. Blood culture was positive for Staph hominis. 06/23/2024, the patient is being seen for a follow-up. Resting comfortably in bed on 5.5 L of oxygen by nasal cannula. Remains on bronchodilators and steroids. No significant events overnight. White cell count has dropped down to 12.7 with a hemoglobin 12.2 and a platelet count of 180. BUN is 40 with a creatinine of 1.02 and K level is at 4.7. Resting comfortably in bed. Tolerating her diet with no nausea or vomiting. The patient is seen today June 24, 2024 in follow-up on the selective care unit. She is sitting up at the bedside. Awake and alert in no acute distress. Still struggling with some shortness of breath on exertion. She is maintaining O2 saturations in the 90s on 5 L/min per nasal cannula. She is alternating with BiPAP 10/5 and 40% FiO2. Chest x-ray shows persistent bibasilar infiltrates and/or atelectasis. Blood cultures were positive for Staph hominis SS Chelsie bio septicus. She is currently on ceftriaxone. White count 14.1. Hemoglobin 14.0. Platelets 184. Sodium 138. Potassium 4.7. Bicarb 37. BUN 44. Creatinine 1.02. Glucose 103. Procalcitonin was negative at 0.04. She is continued on DuoNeb inhalations, Pulmicort and performance inhalations, Solu-Medrol. Lovenox for DVT prophylaxis. Protonix for GI prophylaxis. Objective - Vital Signs Vital signs: Vital Signs Temp 98.3 F 06/24/24 16:00 Pulse 116 H 06/24/24 16:39 Resp 26 H 06/24/24 16:00 BP 181/83 06/24/24 16:00 Pulse Ox 93 L 06/24/24 16:00 FiO2 40 06/24/24 16:39 Intake & Output 06/23/24 06/24/24 06/24/24 18:59 06:59 18:59 Intake Total 956 118 Output Total 650 1 Balance 956 -650 117 Weight 72 kg 72 kg Intake: Oral 956 118 Output: Urine 650 Urine/Stool Mix 1 Other: Voiding Method Bedside Commode Bedside Commode # Voids 1 # Bowel Movements 1 - Exam GENERAL EXAM: Alert, pleasant 63-year-old female, on 5 L nasal cannula, comfortable in no apparent distress. HEAD: Normocephalic. EYES: Normal reaction of pupils, equal size. NOSE: Clear with pink turbinates. THROAT: No erythema or exudates. NECK: No masses, no JVD. CHEST: No chest wall deformity. LUNGS: Equal air entry with bilateral scattered rhonchi, wheeze, diminished. CVS: S1 and S2 normal with no audible murmur, regular rhythm. ABDOMEN: No hepatosplenomegaly, normal bowel sounds, no guarding or rigidity. SPINE: No scoliosis or deformity SKIN: No rashes CENTRAL NERVOUS SYSTEM: No focal deficits, tone is normal in all 4 extremities. EXTREMITIES: There is no peripheral edema. No clubbing, no cyanosis. Per ipheral pulses are intact. - Labs CBC & Chem 7: 06/24/24 11:35 06/24/24 11:35 Labs: Abnormal Lab Results - Last 24 Hours (Table) 06/24/24 06/24/24 Range/Units 11:35 11:35 WBC 14.1 H (3.8-10.6) k/uL Neutrophils # 12.6 H (1.3-7.7) k/uL Lymphocytes # 0.7 L (1.0-4.8) k/uL Carbon Dioxide 37 H (22-30) mmol/L BUN 44 H (7-17) mg/dL Glucose 103 H (74-99) mg/dL Microbiology - Last 24 Hours (Table) 06/19/24 07:35 Blood Culture - Final Blood Assessment and Plan Assessment: Acute on chronic hypoxic respiratory failure seconda secondary to COPD exacerbation and the patient is currently improving and she has been alternating with the BiPAP and she has been weaned down to 5 L of oxygen by nasal cannula. Acute COPD exacerbation, no clear indication for underlying pneumonia. Procalcitonin negative at 0.04. The patient is currently on empiric antibiotic coverage with IV ceftriaxone. CAT scan of the chest showed some bronchiectatic changes in left lung base, some chronic anterior scarring in the lingular region and right basilar scar. No acute abnormalities. Acute on chronic hypoxic respiratory failure on 5 L of oxygen by nasal cannula, typically utilizes 3 to 4 L at home. Gram-positive cocci in the blood, likely contaminant. Staph hominis in the blood. Awaiting final cultures. Patient is currently on IV Rocephin Severe COPD FEV1 of 40%, maintained on budesonide and Duoneb nebs. (unable to do Trelegy) Obstructive sleep apnea syndrome with apnea-hypopnea index of 16, on CPAP with pressure of 12 History of pulmonary nodule, being followed on outpatient basis, 14 x 8 mm subpleural nodule in the superior segment of the left lower lobe History of renal cell carcinoma previous nephrectomy History of L1 compression fracture and chronic back pain in addition to compression fracture of the L3-L4 Hypothyroidism Cholelithiasis Adrenal adenoma Periaortic lymph node measuring 4 x 3 cm in size Plan: The patient was seen and evaluated Chest x-ray, labs and medications reviewed Currently on 5 L of oxygen per nasal cannula Utilizing BiPAP 10/5 and 40% FiO2 as tolerated Remains on ceftriaxone per ID service Continue DuoNeb inhalations Continue Perforomist and Pulmicort inhalations Continue IV Solu-Medrol Lovenox for DVT prophylaxis Protonix for GI prophylaxis Increase her activity as tolerated Decreased the FiO2 as tolerated We will continue to follow I have personally seen and examined the patient, performed the documentation and the assessment and plan as written. Number of minutes spent on the visit: 10 Dictation was produced using [employer] dictation software. Please excuse any grammatical, word or spelling errors.
[2024-06-24] MEDS: BUDESONIDE 0.5 MG/2 ML NEBU INHALATION SCH (21:13)
--- NOTE | 2024-06-25 01:09 | PN ---
PROGRESS NOTE DATE OF SERVICE: 06/24/2024 SUBJECTIVE: This is a 63-year-old woman, who was admitted with COPD acute exacerbation, had significant high oxygen requirement. The patient is followed by multiple consultants. Otherwise, the most recent chest x-ray which I reviewed personally showed bilateral shadows, not much changed. OBJECTIVE: VITAL SIGNS: Pulse is 104, blood pressure 160/84, respirations 20. CHEST: A few scattered rhonchi and crackles. ABDOMEN: Soft. NERVOUS SYSTEM: Nonfocal. LABORATORY DATA: WBC 14.1. ASSESSMENT: 1. Chronic obstructive pulmonary disease acute exacerbation with acute purulent tracheobronchitis with acute hypoxic respiratory failure, status post BiPAP. 2. Right lower lobe opacity with air bronchogram and chronic atelectasis. 3. Possible contaminant blood culture. 4. Interstitial scarring on the CT scan. RECOMMENDATIONS: Recommended to continue current management and continue symptomatic treatment. Closely follow. Microbiology is as mentioned earlier. Otherwise, continue with bronchodilators and high-dose IV steroids. Guarded prognosis. Further recommendations to follow. MMODL / IJN: [id number] /
[2024-06-25] MEDS: FUROSEMIDE 10 MG/ML 2 ML VIAL IV ONE (11:35)
--- NOTE | 2024-06-25 14:21 | P.PN ---
Subjective Progress Note Date: 06/25/24 Principal diagnosis: Reason for follow-up is positive blood culture Patient is a 63-year-old female with a past medical history significant for hypertension reflux COPD and asthma presenting to the hospital for evaluation of increasing shortness of breath diagnosed with COPD exacerbation with tracheobronchitis blood cultures were positive prompting this consultation. On today's evaluation that is 06/25/2024, Patient is afebrile this morning patient patient breathing slightly comfortably today currently on a 5 L nasal cannula oxygen, denies chest pain no cough no abdominal pain no diarrhea. No new labs were obtained today chest x-ray from yesterday persistent bibasilar acute infiltrate or atelectasis Objective - Vital Signs Vital signs: Vital Signs Temp 97.9 F 06/25/24 11:32 Pulse 105 H 06/25/24 12:01 Resp 22 06/25/24 11:32 BP 163/91 06/25/24 11:32 Pulse Ox 92 L 06/25/24 08:09 FiO2 40 06/25/24 08:09 Intake & Output 06/24/24 06/25/24 06/25/24 18:59 06:59 18:59 Intake Total 358 180 Output Total 1 350 Balance 357 -350 180 Weight 72 kg 74.5 kg Intake: Oral 358 180 Output: Urine 350 Urine/Stool Mix 1 Other: Voiding Method Bedside Commode External Catheter - Exam GENERAL DESCRIPTION: Middle-age female lying in bed in no distress RESPIRATORY SYSTEM: Unlabored breathing , coarse breath sounds bilaterally HEART: S1 S2 regular rate and rhythm , ABDOMEN: Soft , no tenderness EXTREMITIES: No edema feet - Labs CBC & Chem 7: 06/24/24 11:35 06/24/24 11:35 Labs: Microbiology - Last 24 Hours (Table) 06/19/24 07:35 Blood Culture - Final Blood Assessment and Plan (1) Bacteremia Current Visit: Yes Status: Acute Code(s): R78.81 - BACTEREMIA SNOMED Code(s): 6554900 (2) COPD exacerbation Current Visit: Yes Status: Acute Code(s): J44.1 - CHRONIC OBSTRUCTIVE PULMONARY DISEASE W (ACUTE) EXACERBATION SNOMED Code(s): 890409062 (3) Allergy to multiple antibiotics Current Visit: No Status: Acute Code(s): Z88.1 - ALLERGY STATUS TO OTHER ANTIBIOTIC AGENTS SNOMED Code(s): 223050393 (4) Leukocytosis Current Visit: No Status: Acute Code(s): D72.829 - ELEVATED WHITE BLOOD CELL COUNT, UNSPECIFIED SNOMED Code(s): 129405471 (5) Pneumonia Current Visit: No Status: Acute Code(s): J18.9 - PNEUMONIA, UNSPECIFIED ORGANISM SNOMED Code(s): 668973994 Plan: 1patient with a positive blood culture with Staphylococcus patient is likely staph epi and more likely skin contamination as the patient has no clinical disease to go along with it. 2patient with multiple antibiotic ALLERGIES that would limit the number of antibiotic safe to use. 3patient did have persistent finding on the chest x-ray however the patient already any fever did have normal CRP and procalcitonin that would go against pneumonia hence we will monitor closely off antibiotic therapy at this point as she has completed course of Rocephin Dictation was produced using [employer] dictation software. please excuse any grammatical, word or spelling errors. Time with Patient: Less than 30
--- NOTE | 2024-06-25 15:22 | P.PN ---
Subjective Progress Note Date: 06/25/24 This is a very pleasant 63-year-old female, known history of severe COPD, her FEV1 is 60% of the predicted, also known to have history of obstructive sleep apnea, normally on CPAP at a pressure of 12 cm of water. She had previous history of renal cell carcinoma undergone previous right nephrectomy followed by targeted therapy. History of GERD, history of multiple admissions with COPD exacerbation in the past. She was just discharged September 15, 2023 for a COPD exacerbation including both hypoxic and hypercapnic respiratory failure requiring BiPAP support. The patient presented to the emergency department with worsening shortness of breath. She stated that her oxygen levels were dropping even on 3 and half liters of oxygen by nasal cannula. She was also utilizing an albuterol rescue inhaler. Based on that, she decided to come in to the emergency department. She denies having any chest pain. No hemoptysis. No pleurisy. Some mucus production. No chest pain. No nausea or emesis. No swe lling lower extremities. The white cell count of 14.7 with a hemoglobin 14.8 and a platelet count of 225. Normal coagulation profile. Sodium is at 140, BUN 21 with a creatinine 1.2. Serum bicarb is at 36. Viral 4 Plex has been negative. Troponins are negative. LFTs are normal and the procalcitonin level is at 0.03. I reviewed the chest x-ray from this current admission and it shows small amount of linear opacity in the left lower lung zone. This could be an area of atelectasis. For now, the patient on DuoNeb nebulized treatments [id number], she is on Perforomist and Pulmicort nebulized treatment twice a day. She is on IV Rocephin and she is also on IV Solu-Medrol 60 mg every 6 hours. She is on oxygen at 9 L with a pulse ox of 92%. Based on my records, the patient COPD is advanced. She has an FEV1 of 40% of predicted at baseline. Scan of the chest that was done on 12/24/2023 showed advanced COPD. Her previous described pneumonia in the lung bases improved and the patient continued to have some residual inflammatory changes in the lung bases and a stable 4 mm left upper lobe pulmonary nodule. The patient is a chronic smoker. She also has obstructive sleep apnea with an AHI of 16 maintained on CPAP therapy pressure of 12 cm of water. She has previous right nephrectomy for an underlying renal cell carcinoma. No clear evidence of any pulmonary metastasis at this point. She also suffers from chronic history kidney disease and chronic compression fracture of the lumbar spine with moderate to severe compression at the level of L1 and mild to moderate compr ession fraction at the level of L3 and L4. She has utilized lumbar braces in the past. She also has previous history of C. difficile colitis. On 06/18/2024, the patient is being seen for a follow-up. The patient was hospitalized for an acute on top of chronic hypoxic respiratory failure. She is currently on 7 L of oxygen by nasal cannula. She was hospitalized for an acute COPD exacerbation. She typically uses oxygen at 3 to 4 L/min nasal cannula on outpatient basis. She has an FEV1 of 40% of predicted. She has also history of renal cell carcinoma and she has undergone previous nephrectomy along with chronic stage III kidney disease. Her condition is stable. She remains on DuoNeb of chest. She remains on IV Solu-Medrol. She remains on budesonide nebulized treatments twice a day. Rest of medications are essentially unchanged and the patient is on empiric antibiotic coverage with IV Rocephin. White cell count of 15.6 with a hemoglobin 14.2 and a platelet count of 186. BUN is 23 with a creatinine 1 and the sodium is at 140. The viral screen was negative. No chest pain. No pleurisy. No hemoptysis. No altered mentation. The blood culture is showing preliminary gram-positive cocci in clusters, likely contaminant. No signs of any septicemia at this point in time. 06/19/2024, the patient is being seen for a follow-up. The patient is feeling better compared to yesterday. She has been weaned down to 60 to the maximal nasal cannula with a pulse ox of 94%. Her baseline is at 5 L. She remains on DuoNeb updrafts, Pulmicort Respules, IV Solu-Medrol 60 mg every 6 hours. She is also on empiric antibiotic coverage with IV Rocephin. No chest pain. No hemoptysis. Her white cell count of 21 with a hemoglobin of 14.2 and a platelet count of 230.. 27 with a creatinine of 1.04 and a sodium levels at 143 and a potassium level is at 4.6. No chest pain. No altered mentation. No hemodynamic instability. Blood culture was positive for gram-positive cocci and clusters, likely contaminant. Noted, the patient's procalcitonin level was only at 0.03. ID is on the case. On 06/20/2024, the patient is being seen for a follow-up. The patient is stable. She is still on 6 L of oxygen by nasal cannula. Pulse ox in the order of 95%. Slow but ongoing improvement. D-dimer is at 0.44. The white cell count is 15.2 with a hemoglobin of 12.4 and a platelet count of 180. Electrolytes are unchanged. BUN is 35 with a creatinine of 1.05. Medications remain unchanged. The patient has no new specific complaints. Remains on IV Solu-Medrol. Remains on DuoNeb nebulized treatments [id number]. On 06/21/2024, the patient is being seen for a follow-up. The patient remained in 60s of oxygen nasal cannula. Attempts were done to wean the FiO2 further yesterday. Nevertheless, the patient desaturated and based on that the patient was kept on oxygen at 6 L nasal cannula. Her current pulse ox is 91%. She is using the incentive spirometer. No chest pain. No significant cough or sputum production. The white cell count of 12.7 with a hemoglobin of 12.2 and a platelet count of 180. Sodium is at 139, potassium is at 4.7, serum bicarb is at 34 with a BUN of 40 and a creatinine of 1.02. LFTs are normal. Also, the patient underwent a CAT scan of the chest that showed a right basilar atelectatic change, chronic interstitial scarring involving the lingula and some bronchiectatic changes in the left lower lobe. Mild aneurysmal dilatation of the ascending aorta and cholelithiasis and another 3.4 cm left adrenal adenoma. There was another enlarged lymph node in the para-aortic region measuring 4.4 x 3.2 cm in size and a biliary stent was noted. Compression fractions involving the thoracic and lumbar spine moderate to severe in nature. The blood culture was positive for Staph hominis 1 out of 2. ID is on the case. The patient was kept on IV Rocephin. 06/22/2024, the patient is being seen for a follow-up. The patient is currently down to 5 L of oxygen by nasal cannula. Continues to have congestion cough and chest tightness and wheeze although this is gradually improving. Remains on bronchodilators and steroids. She is on DuoNeb of chest. She is on IV Rocephin. She is on IV Solu-Medrol 60 mg every 6 hours. She remains on Lovenox for DVT prophylaxis. The white cell count of 12 with a hemoglobin of 12 and a platelet count of 180. Sodium is at 139, bicarb is at 34, BUN is 40 with a creatinine of 1.02. Blood culture was positive for Staph hominis. 06/23/2024, the patient is being seen for a follow-up. Resting comfortably in bed on 5.5 L of oxygen by nasal cannula. Remains on bronchodilators and steroids. No significant events overnight. White cell count has dropped down to 12.7 with a hemoglobin 12.2 and a platelet count of 180. BUN is 40 with a creatinine of 1.02 and K level is at 4.7. Resting comfortably in bed. Tolerating her diet with no nausea or vomiting. The patient is seen today June 24, 2024 in follow-up on the selective care unit. She is sitting up at the bedside. Awake and alert in no acute distress. Still struggling with some shortness of breath on exertion. She is maintaining O2 saturations in the 90s on 5 L/min per nasal cannula. She is alternating with BiPAP 10/5 and 40% FiO2. Chest x-ray shows persistent bibasilar infiltrates and/or atelectasis. Blood cultures were positive for Staph hominis SS Chelsie bio septicus. She is currently on ceftriaxone. White count 14.1. Hemoglobin 14.0. Platelets 184. Sodium 138. Potassium 4.7. Bicarb 37. BUN 44. Creatinine 1.02. Glucose 103. Procalcitonin was negative at 0.04. She is continued on DuoNeb inhalations, Pulmicort and performance inhalations, Solu-Medrol. Lovenox for DVT prophylaxis. Protonix for GI prophylaxis. The patient is seen today June 25, 2024 in follow-up on the selective care unit. She is resting in bed. Awake and alert in no acute distress. Maintaining O2 saturation in the low 90s on 5 L/min per nasal cannula. Afebrile. She does have continued dyspnea with minimal exertion, dyspnea with conversation. She is continued on DuoNeb inhalations, Pulmicort and Perforomist inhalations, IV Solu- Medrol. Lovenox for DVT prophylaxis. Repeat blood culture revealed no growth. Procalcitonin negative at 0.04 Objective - Vital Signs Vital signs: Vital Signs Temp 97.9 F 06/25/24 11:32 Pulse 103 H 06/25/24 14:00 Resp 22 06/25/24 14:00 BP 163/91 06/25/24 11:32 Pulse Ox 92 L 06/25/24 11:32 FiO2 40 06/25/24 08:09 Intake & Output 06/24/24 06/25/24 06/25/24 18:59 06:59 18:59 Intake Total 358 360 Output Total 1 350 Balance 357 -350 360 Weight 72 kg 74.5 kg Intake: Oral 358 360 Output: Urine 350 Urine/Stool Mix 1 Other: Voiding Method Bedside Commode External Catheter # Voids 3 - Exam GENERAL EXAM: Alert, 63-year-old female, resting in bed, on 5 L nasal cannula, comfortable in no apparent distress. HEAD: Normocephalic. EYES: Normal reaction of pupils, equal size. NOSE: Clear with pink turbinates. THROAT: No erythema or exudates. NECK: No masses, no JVD. CHEST: No chest wall deformity. LUNGS: Equal air entry with bilateral scattered rhonchi, wheeze, diminished. CVS: S1 and S2 normal with no audible murmur, regular rhythm. ABDOMEN: No hepatosplenomegaly, normal bowel sounds, no guarding or rigidity. SPINE: No scoliosis or deformity SKIN: No rashes CENTRAL NERVOUS SYSTEM: No focal deficits, tone is normal in all 4 extremities. EXTREMITIES: There is no peripheral edema. No clubbing, no cyanosis. Peripher al pulses are intact. - Labs CBC & Chem 7: 06/24/24 11:35 06/24/24 11:35 Labs: Microbiology - Last 24 Hours (Table) 06/19/24 07:35 Blood Culture - Final Blood Assessment and Plan Assessment: Acute on chronic hypoxic respiratory failure seconda secondary to COPD exacerbation and the patient is currently improving and she has been alternating with the BiPAP and she has been weaned down to 5 L of oxygen by nasal cannula. Acute COPD exacerbation, no clear indication for underlying pneumonia. Procalcitonin negative at 0.04. The patient was on empiric antibiotic coverage with IV ceftriaxone. CAT scan of the chest showed some bronchiectatic changes in left lung base, some chronic anterior scarring in the lingular region and right basilar scar. No acute abnormalities. Acute on chronic hypoxic respiratory failure on 5 L of oxygen by nasal cannula, typically utilizes 3 to 4 L at home. Gram-positive cocci in the blood, likely contaminant. Staph hominis in the blood. Awaiting final cultures. Patient is currently on IV Rocephin Severe COPD FEV1 of 40%, maintained on budesonide and Duoneb nebs. (unable to do Trelegy) Obstructive sleep apnea syndrome with apnea-hypopnea index of 16, on CPAP with pressure of 12 History of pulmonary nodule, being followed on outpatient basis, 14 x 8 mm subpleural nodule in the superior segment of the left lower lobe History of renal cell carcinoma previous nephrectomy History of L1 compression fracture and chronic back pain in addition to compression fracture of the L3-L4 Hypothyroidism Cholelithiasis Adrenal adenoma Periaortic lymph node measuring 4 x 3 cm in size Plan: The patient was seen and evaluated Chest x-ray, labs and medications reviewed Currently on 5 L of oxygen per nasal cannula Utilizing BiPAP 10/5 and 40% FiO2 as tolerated Not quite ready for discharge Continue bronchodilators Continue IV Solu-Medrol Lovenox for DVT prophylaxis Protonix for GI prophylaxis Increase her activity as tolerated Decreased the FiO2 as tolerated We will continue to follow I have personally seen and examined the patient, performed the documentation and the assessment and plan as written. Number of minutes spent on the visit: 10 Dictation was produced using [employer] dictation software. Please excuse any grammatical, word or spelling errors.
[2024-06-25] MEDS: PROPRANOLOL 20 MG TAB PO SCH (17:07)
[2024-06-25] MEDS ORDERED: PROPRANOLOL 20 MG TAB PO SCH (21:00)
[2024-06-26] MEDS: PROPRANOLOL 20 MG TAB PO SCH (05:43)
[2024-06-26 07:44] LABS: African American GFR (CKD) 79 (>60 ml/min/1.73 sqM); Blood Urea Nitrogen 40 mg/dL (7-17); Calcium 8.7 mg/dL (8.4-10.2); Chloride 97 mmol/L (98-107); Glucose 102 mg/dL (74-99); Non-African American GFR(CKD) 69 (>60 ml/min/1.73 sqM); Potassium 4.6 mmol/L (3.5-5.1); Sodium 138 mmol/L (137-145)
[2024-06-26 07:51] LABS: Anion Gap 3 mmol/L
[2024-06-26 08:38] LABS: Carbon Dioxide 38 mmol/L (22-30)
--- NOTE | 2024-06-26 09:10 | P.PN ---
Subjective Progress Note Date: 06/25/24 This is a 63-year-old female who was recently admitted with increasing shortness of breath with COPD exacerbation and initial significantly high oxygen requirements including BiPAP. Patient maintained on 6 L via nasal cannula currently and working on weaning as tolerated. Patient chronically uses oxygen outpatient. Patient has had prolonged hospitalization and slow improvements with minimal improvement. Patient reports to feeling increasing shortness of breath with congestion and cough and extremely dyspneic on exertion. Not quite ready for discharge at this time. Review of systems: Constitutional: No reports of fatigue, fever, or chills Cardiovascular: No reports of chest pain or palpitations Respiratory: reports of worsening shortness of breath and continued cough GI: No reports of nausea, no reports of vomiting, no diarrhea : No reports of dysuria or retention Neurovascular: reports of generalized weakness, reports is getting up and moving around All medications have been reviewed PHYSICAL EXAMINATION: GENERAL: The patient is alert and oriented x4, Well developed, well nourished. Elderly appearing, ill-appearing, obese HEENT: Pupils are round and equally reacting to light. EOMI. no scleral icterus. No conjunctival pallor. Normocephalic, atraumatic. No pharyngeal erythema. No thyromegaly. CARDIOVASCULAR: S1 and S2 muffled PULMONARY: diminished breath sounds bilaterally with expiratory wheezing and coarse scattered rhonchi noted. ABDOMEN: soft. Nontender on exam. obese. non-distended, normoactive bowel sounds. No palpable organomegaly. MUSCULOSKELETAL: No joint swelling or deformity. EXTREMITIES: No cyanosis, clubbing, or pedal edema. NEUROLOGICAL: Gross neurological examination did not reveal any focal deficits. Diffuse weakness SKIN: No rashes. Assessment: Chronic obstructive pulmonary disease acute exacerbation with acute purulent tracheobronchitis with acute on chronic hypoxic respiratory failure, initially requiring BiPAP, currently on 6 L nasal cannula Right lower lobe opacity with air bronchogram and chronic atelectasis Initial blood culture positive, likely contaminant, repeats are negative Interstitial scarring on the CT scan GERD Hyperlipidemia Liver disease Sleep apnea with a CPAP History of irritable bowel syndrome with colitis Anxiety/bipolar/depression Former smoker Obesity with a BMI of 30.0 History of right nephrectomy in 2022 GI prophylaxis DVT prophylaxis Full code Plan: Recommend to continue with current medications and management with pulmonary following closely. Patient is maintained on IV steroids along with [id number] breathing treatments and not quite ready for discharge. Patient remains on 6 L and will need to titrate down to at least 4 L before discharge is considered per pulmonary Wean FiO2 as tolerated and increase activity as tolerated. Continue using incentive spirometer at least 10 times every hour while awake Monitor for any aspiration risks and continue with aspiration precautions Follow-up on repeat labs and replace electrolytes per protocol Due to multiple complex medical issues, prognosis is guarded The impression and plan of care has been dictated by Peri Mg, nurse practitioner as directed. Dr. Justice MD I have performed a history and examination and MDM of this patient, discussed the same with the dictator, and agree with the dictator's assessment and plan as written ,documented as a scribe. Based on total visit time, I have performed more than 50% of the visit. Any additional findings or plans will be noted. Objective - Vital Signs Vital signs: Vital Signs Temp 97.9 F 06/25/24 11:32 Pulse 103 H 06/25/24 14:00 Resp 22 06/25/24 14:00 BP 163/91 06/25/24 11:32 Pulse Ox 92 L 06/25/24 11:32 FiO2 40 06/25/24 08:09 Intake & Output 06/24/24 06/25/24 06/25/24 18:59 06:59 18:59 Intake Total 358 360 Output Total 1 350 Balance 357 -350 360 Weight 72 kg 74.5 kg Intake: Oral 358 360 Output: Urine 350 Urine/Stool Mix 1 Other: Voiding Method Bedside Commode External Catheter # Voids 3 - Labs CBC & Chem 7: 06/24/24 11:35 06/26/24 07:16 Labs: Microbiology - Last 24 Hours (Table) 06/19/24 07:35 Blood Culture - Final Blood
[2024-06-26] MEDS: BUDESONIDE 1 MG/2 ML NEBU INHALATION SCH (09:11)
[2024-06-26] MEDS: FUROSEMIDE 10 MG/ML 2 ML VIAL IV ONE (14:21)
--- NOTE | 2024-06-26 16:11 | P.PN ---
Subjective Progress Note Date: 06/26/24 This is a very pleasant 63-year-old female, known history of severe COPD, her FEV1 is 60% of the predicted, also known to have history of obstructive sleep apnea, normally on CPAP at a pressure of 12 cm of water. She had previous history of renal cell carcinoma undergone previous right nephrectomy followed by targeted therapy. History of GERD, history of multiple admissions with COPD exacerbation in the past. She was just discharged September 15, 2023 for a COPD exacerbation including both hypoxic and hypercapnic respiratory failure requiring BiPAP support. The patient presented to the emergency department with worsening shortness of breath. She stated that her oxygen levels were dropping even on 3 and half liters of oxygen by nasal cannula. She was also utilizing an albuterol rescue inhaler. Based on that, she decided to come in to the emergency department. She denies having any chest pain. No hemoptysis. No pleurisy. Some mucus production. No chest pain. No nausea or emesis. No swe lling lower extremities. The white cell count of 14.7 with a hemoglobin 14.8 and a platelet count of 225. Normal coagulation profile. Sodium is at 140, BUN 21 with a creatinine 1.2. Serum bicarb is at 36. Viral 4 Plex has been negative. Troponins are negative. LFTs are normal and the procalcitonin level is at 0.03. I reviewed the chest x-ray from this current admission and it shows small amount of linear opacity in the left lower lung zone. This could be an area of atelectasis. For now, the patient on DuoNeb nebulized treatments [id number], she is on Perforomist and Pulmicort nebulized treatment twice a day. She is on IV Rocephin and she is also on IV Solu-Medrol 60 mg every 6 hours. She is on oxygen at 9 L with a pulse ox of 92%. Based on my records, the patient COPD is advanced. She has an FEV1 of 40% of predicted at baseline. Scan of the chest that was done on 12/24/2023 showed advanced COPD. Her previous described pneumonia in the lung bases improved and the patient continued to have some residual inflammatory changes in the lung bases and a stable 4 mm left upper lobe pulmonary nodule. The patient is a chronic smoker. She also has obstructive sleep apnea with an AHI of 16 maintained on CPAP therapy pressure of 12 cm of water. She has previous right nephrectomy for an underlying renal cell carcinoma. No clear evidence of any pulmonary metastasis at this point. She also suffers from chronic history kidney disease and chronic compression fracture of the lumbar spine with moderate to severe compression at the level of L1 and mild to moderate compr ession fraction at the level of L3 and L4. She has utilized lumbar braces in the past. She also has previous history of C. difficile colitis. On 06/18/2024, the patient is being seen for a follow-up. The patient was hospitalized for an acute on top of chronic hypoxic respiratory failure. She is currently on 7 L of oxygen by nasal cannula. She was hospitalized for an acute COPD exacerbation. She typically uses oxygen at 3 to 4 L/min nasal cannula on outpatient basis. She has an FEV1 of 40% of predicted. She has also history of renal cell carcinoma and she has undergone previous nephrectomy along with chronic stage III kidney disease. Her condition is stable. She remains on DuoNeb of chest. She remains on IV Solu-Medrol. She remains on budesonide nebulized treatments twice a day. Rest of medications are essentially unchanged and the patient is on empiric antibiotic coverage with IV Rocephin. White cell count of 15.6 with a hemoglobin 14.2 and a platelet count of 186. BUN is 23 with a creatinine 1 and the sodium is at 140. The viral screen was negative. No chest pain. No pleurisy. No hemoptysis. No altered mentation. The blood culture is showing preliminary gram-positive cocci in clusters, likely contaminant. No signs of any septicemia at this point in time. 06/19/2024, the patient is being seen for a follow-up. The patient is feeling better compared to yesterday. She has been weaned down to 60 to the maximal nasal cannula with a pulse ox of 94%. Her baseline is at 5 L. She remains on DuoNeb updrafts, Pulmicort Respules, IV Solu-Medrol 60 mg every 6 hours. She is also on empiric antibiotic coverage with IV Rocephin. No chest pain. No hemoptysis. Her white cell count of 21 with a hemoglobin of 14.2 and a platelet count of 230.. 27 with a creatinine of 1.04 and a sodium levels at 143 and a potassium level is at 4.6. No chest pain. No altered mentation. No hemodynamic instability. Blood culture was positive for gram-positive cocci and clusters, likely contaminant. Noted, the patient's procalcitonin level was only at 0.03. ID is on the case. On 06/20/2024, the patient is being seen for a follow-up. The patient is stable. She is still on 6 L of oxygen by nasal cannula. Pulse ox in the order of 95%. Slow but ongoing improvement. D-dimer is at 0.44. The white cell count is 15.2 with a hemoglobin of 12.4 and a platelet count of 180. Electrolytes are unchanged. BUN is 35 with a creatinine of 1.05. Medications remain unchanged. The patient has no new specific complaints. Remains on IV Solu-Medrol. Remains on DuoNeb nebulized treatments [id number]. On 06/21/2024, the patient is being seen for a follow-up. The patient remained in 60s of oxygen nasal cannula. Attempts were done to wean the FiO2 further yesterday. Nevertheless, the patient desaturated and based on that the patient was kept on oxygen at 6 L nasal cannula. Her current pulse ox is 91%. She is using the incentive spirometer. No chest pain. No significant cough or sputum production. The white cell count of 12.7 with a hemoglobin of 12.2 and a platelet count of 180. Sodium is at 139, potassium is at 4.7, serum bicarb is at 34 with a BUN of 40 and a creatinine of 1.02. LFTs are normal. Also, the patient underwent a CAT scan of the chest that showed a right basilar atelectatic change, chronic interstitial scarring involving the lingula and some bronchiectatic changes in the left lower lobe. Mild aneurysmal dilatation of the ascending aorta and cholelithiasis and another 3.4 cm left adrenal adenoma. There was another enlarged lymph node in the para-aortic region measuring 4.4 x 3.2 cm in size and a biliary stent was noted. Compression fractions involving the thoracic and lumbar spine moderate to severe in nature. The blood culture was positive for Staph hominis 1 out of 2. ID is on the case. The patient was kept on IV Rocephin. 06/22/2024, the patient is being seen for a follow-up. The patient is currently down to 5 L of oxygen by nasal cannula. Continues to have congestion cough and chest tightness and wheeze although this is gradually improving. Remains on bronchodilators and steroids. She is on DuoNeb of chest. She is on IV Rocephin. She is on IV Solu-Medrol 60 mg every 6 hours. She remains on Lovenox for DVT prophylaxis. The white cell count of 12 with a hemoglobin of 12 and a platelet count of 180. Sodium is at 139, bicarb is at 34, BUN is 40 with a creatinine of 1.02. Blood culture was positive for Staph hominis. 06/23/2024, the patient is being seen for a follow-up. Resting comfortably in bed on 5.5 L of oxygen by nasal cannula. Remains on bronchodilators and steroids. No significant events overnight. White cell count has dropped down to 12.7 with a hemoglobin 12.2 and a platelet count of 180. BUN is 40 with a creatinine of 1.02 and K level is at 4.7. Resting comfortably in bed. Tolerating her diet with no nausea or vomiting. The patient is seen today June 24, 2024 in follow-up on the selective care unit. She is sitting up at the bedside. Awake and alert in no acute distress. Still struggling with some shortness of breath on exertion. She is maintaining O2 saturations in the 90s on 5 L/min per nasal cannula. She is alternating with BiPAP 10/5 and 40% FiO2. Chest x-ray shows persistent bibasilar infiltrates and/or atelectasis. Blood cultures were positive for Staph hominis SS Chelsie bio septicus. She is currently on ceftriaxone. White count 14.1. Hemoglobin 14.0. Platelets 184. Sodium 138. Potassium 4.7. Bicarb 37. BUN 44. Creatinine 1.02. Glucose 103. Procalcitonin was negative at 0.04. She is continued on DuoNeb inhalations, Pulmicort and performance inhalations, Solu-Medrol. Lovenox for DVT prophylaxis. Protonix for GI prophylaxis. The patient is seen today June 25, 2024 in follow-up on the selective care unit. She is resting in bed. Awake and alert in no acute distress. Maintaining O2 saturation in the low 90s on 5 L/min per nasal cannula. Afebrile. She does have continued dyspnea with minimal exertion, dyspnea with conversation. She is continued on DuoNeb inhalations, Pulmicort and Perforomist inhalations, IV Solu- Medrol. Lovenox for DVT prophylaxis. Repeat blood culture revealed no growth. Procalcitonin negative at 0.04 The patient is seen today June 26, 2024 in follow-up on the selective care unit. She is currently sitting up in a chair at the bedside. Awake and alert in no acute distress. She continues to have a loose congested cough. Maintaining O2 saturations in the 90s on 5 L/min per nasal cannula. She has been afebrile. Chest x-ray shows persistent bibasilar acute infiltrates and/or atelectasis. Follow-up blood culture revealed no growth. Sodium 138. Potassium 4.6. Bicarb 38. BUN 40. Creatinine 0.89. Glucose 102. Procalcitonin was negative at 0.04. She does remain on DuoNeb inhalations, Pulmicort and Perforomist inhalations, IV Solu-Medrol. She was given Lasix 20 mg IVP x 1 today. No accurate intake and output recorded. Objective - Vital Signs Vital signs: Vital Signs Temp 97.3 F L 06/26/24 15:15 Pulse 118 H 06/26/24 15:15 Resp 18 06/26/24 15:15 BP 142/84 06/26/24 15:15 Pulse Ox 90 L 06/26/24 15:15 FiO2 40 06/26/24 09:11 Intake & Output 06/25/24 06/26/24 06/26/24 18:59 06:59 18:59 Intake Total 550 560 128 Balance 550 560 128 Intake: IV 10 20 10 Invasive Line 5 10 20 10 Oral 540 540 118 Other: Voiding Method External Catheter External Catheter Bedside Commode External Catheter # Voids 2 1 2 # Bowel Movements 1 - Exam GENERAL EXAM: Alert, pleasant 63-year-old female, sitting up in a chair, on 5 L nasal cannula, comfortable in no apparent distress. HEAD: Normocephalic. EYES: Normal reaction of pupils, equal size. NOSE: Clear with pink turbinates. THROAT: No erythema or exudates. NECK: No masses, no JVD. CHEST: No chest wall deformity. LUNGS: Equal air entry with bilateral scattered rhonchi, wheeze, diminished. CVS: S1 and S2 normal with no audible murmur, regular rhythm. ABDOMEN: No hepatosplenomegaly, normal bowel sounds, no guarding or rigidity. SPINE: No scoliosis or deformity SKIN: No rashes CENTRAL NERVOUS SYSTEM: No focal deficits, tone is normal in all 4 extremities. EXTREMITIES: There is no peripheral edema. No clubbing, no cyanosis. Peripheral pulses are intact. - Labs CBC & Chem 7: 06/24/24 11:35 06/26/24 07:16 Labs: Abnormal Lab Results - Last 24 Hours (Table) 06/26/24 Range/Units 07:16 Chloride 97 L (98-107) mmol/L Carbon Dioxide 38 H (22-30) mmol/L BUN 40 H (7-17) mg/dL Glucose 102 H (74-99) mg/dL Assessment and Plan Assessment: Acute on chronic hypoxic respiratory failure seconda secondary to COPD exacerbation and the patient is slowly improving and she has been alternating with the BiPAP and she has been weaned down to 5 L of oxygen by nasal cannula. Offered bronchoscopy with BAL however the patient declines Acute COPD exacerbation, no clear indication for underlying pneumonia. Procalcitonin negative at 0.04. The patient was on empiric antibiotic coverage with IV ceftriaxone. CAT scan of the chest showed some bronchiectatic changes in left lung base, some chronic anterior scarring in the lingular region and right basilar scar. No acute abnormalities. Acute on chronic hypoxic respiratory failure on 5 L of oxygen by nasal cannula, typically utilizes 3 to 4 L at home. Gram-positive cocci in the blood, likely contaminant. Staph hominis in the blood. Awaiting final cultures. Follow-up cultures revealed no growth. Completed Rocephin Severe COPD FEV1 of 40%, maintained on budesonide and Duoneb nebs. (unable to do Trelegy) Obstructive sleep apnea syndrome with apnea-hypopnea index of 16, on CPAP with pressure of 12 History of pulmonary nodule, being followed on outpatient basis, 14 x 8 mm subpleural nodule in the superior segment of the left lower lobe History of renal cell carcinoma previous nephrectomy History of L1 compression fracture and chronic back pain in addition to c ompression fracture of the L3-L4 Hypothyroidism Cholelithiasis Adrenal adenoma Periaortic lymph node measuring 4 x 3 cm in size Plan: The patient was seen and evaluated Labs and medications reviewed Lasix 20 mg IVP x 1 given today Continue DuoNeb inhalations Continue Pulmicort and Perforomist inhalations Continue IV Solu-Medrol Lovenox for DVT prophylaxis Protonix for GI prophylaxis Completed a course of ceftriaxone Procalcitonin was negative Currently on 5 L of oxygen per nasal cannula Utilizing BiPAP 10/5 and 40% FiO2 as tolerated The patient has been slow to progress Offered bronchoscopy which she declines Increase her activity as tolerated Decreased the FiO2 as tolerated We will continue to follow I have personally seen and examined the patient, performed the documentation and the assessment and plan as written. Number of minutes spent on the visit: 10 Dictation was produced using [employer] dictation software. Please excuse any grammatical, word or spelling errors.
--- NOTE | 2024-06-26 22:21 | P.PN ---
Subjective Progress Note Date: 06/26/24 This is a 63-year-old female who was recently admitted with increasing shortness of breath with COPD exacerbation and initial significantly high oxygen requirements including BiPAP. Patient maintained on 6 L via nasal cannula currently and working on weaning as tolerated. Patient chronically uses oxygen outpatient. Patient has had prolonged hospitalization and slow improvements with minimal improvement. Patient reports to feeling increasing shortness of breath with congestion and cough and extremely dyspneic on exertion. Not quite ready for discharge at this time. 06/26/2024 Patient is seen in follow-up today currently on the BiPAP and reports she was feeling more short of breath and congested. Patient is slow to progress showing very minimal improvement and is being followed by pulmonary. Patient currently on 5 L at 90% and needs to be maintaining 90% on 4 L before being considered for discharge. Per pulmonary not quite ready. Patient is afebrile with no reports of chest pain or palpitations. Review of systems: Constitutional: No reports of fatigue, fever, or chills Cardiovascular: No reports of chest pain or palpitations Respiratory: reports of worsening shortness of breath and continued cough GI: No reports of nausea, no reports of vomiting, no diarrhea : No reports of dysuria or retention Neurovascular: reports of generalized weakness, reports is getting up and movi ng around All medications have been reviewed PHYSICAL EXAMINATION: GENERAL: The patient is alert and oriented x4, Well developed, well nourished. Elderly appearing, ill-appearing, obese HEENT: Pupils are round and equally reacting to light. EOMI. no scleral icterus. No conjunctival pallor. Normocephalic, atraumatic. No pharyngeal erythema. No thyromegaly. CARDIOVASCULAR: S1 and S2 muffled PULMONARY: diminished breath sounds bilaterally with forced expiratory wheezing and coarse scattered rhonchi noted. ABDOMEN: soft. Nontender on exam. obese. non-distended, normoactive bowel sounds. No palpable organomegaly. MUSCULOSKELETAL: No joint swelling or deformity. EXTREMITIES: No cyanosis, clubbing, or pedal edema. NEUROLOGICAL: Gross neurological examination did not reveal any focal deficits. Diffuse weakness SKIN: No rashes. Assessment: Chronic obstructive pulmonary disease acute exacerbation with acute purulent tracheobronchitis with acute on chronic hypoxic respiratory failure, initially requiring BiPAP, currently on 5 L nasal cannula Right lower lobe opacity with air bronchogram and chronic atelectasis Initial blood culture positive, likely contaminant, repeats are negative Interstitial scarring on the CT scan GERD Hyperlipidemia Liver disease Sleep apnea with a CPAP History of irritable bowel syndrome with colitis Anxiety/bipolar/depression Former smoker Obesity with a BMI of 30.0 History of right nephrectomy in 2022 GI prophylaxis DVT prophylaxis Full code Plan: Recommend to continue with current medications and management with pulmonary following closely. Patient is maintained on IV steroids along with bvieyc-cjw-gpuup breathing treatments and not quite ready for discharge per pulmonary. Patient remains on 5L and will need to titrate down to at least 4 L before discharge is considered per pulmonary Wean FiO2 as tolerated and increase activity as tolerated. Continue using incentive spirometer at least 10 times every hour while awake Patient wearing BiPAP more frequently throughout the day and reporting she feels congested and tight on air movement Monitor for any aspiration risks and continue with aspiration precautions Follow-up on repeat labs and replace electrolytes per protocol Due to multiple complex medical issues, prognosis is guarded The impression and plan of care has been dictated by Peri Mg, nurse prac titioner as directed. Dr. Justice MD I have performed a history and examination and MDM of this patient, discussed the same with the dictator, and agree with the dictator's assessment and plan as written ,documented as a scribe. Based on total visit time, I have performed more than 50% of the visit. Any additional findings or plans will be noted. Objective - Vital Signs Vital signs: Vital Signs Temp 97.3 F L 06/26/24 15:15 Pulse 90 06/26/24 17:12 Resp 18 06/26/24 15:15 BP 142/84 06/26/24 15:15 Pulse Ox 90 L 06/26/24 15:15 FiO2 40 06/26/24 09:11 Intake & Output 06/26/24 06/26/24 06/27/24 06:59 18:59 06:59 Intake Total 560 364 Output Total 500 Balance 560 -136 Intake: IV 20 10 Invasive Line 5 20 10 Oral 540 354 Output: Urine 500 Other: Voiding Method External Catheter Bedside Commode External Catheter # Voids 1 2 # Bowel Movements 1 - Labs CBC & Chem 7: 06/24/24 11:35 06/26/24 07:16 Labs: Abnormal Lab Results - Last 24 Hours (Table) 06/26/24 Range/Units 07:16 Chloride 97 L (98-107) mmol/L Carbon Dioxide 38 H (22-30) mmol/L BUN 40 H (7-17) mg/dL Glucose 102 H (74-99) mg/dL
--- NOTE | 2024-06-27 13:57 | P.PN ---
Subjective Progress Note Date: 06/27/24 This is a very pleasant 63-year-old female, known history of severe COPD, her FEV1 is 60% of the predicted, also known to have history of obstructive sleep apnea, normally on CPAP at a pressure of 12 cm of water. She had previous history of renal cell carcinoma undergone previous right nephrectomy followed by targeted therapy. History of GERD, history of multiple admissions with COPD exacerbation in the past. She was just discharged September 15, 2023 for a COPD exacerbation including both hypoxic and hypercapnic respiratory failure requiring BiPAP support. The patient presented to the emergency department with worsening shortness of breath. She stated that her oxygen levels were dropping even on 3 and half liters of oxygen by nasal cannula. She was also utilizing an albuterol rescue inhaler. Based on that, she decided to come in to the emergency department. She denies having any chest pain. No hemoptysis. No pleurisy. Some mucus production. No chest pain. No nausea or emesis. No swe lling lower extremities. The white cell count of 14.7 with a hemoglobin 14.8 and a platelet count of 225. Normal coagulation profile. Sodium is at 140, BUN 21 with a creatinine 1.2. Serum bicarb is at 36. Viral 4 Plex has been negative. Troponins are negative. LFTs are normal and the procalcitonin level is at 0.03. I reviewed the chest x-ray from this current admission and it shows small amount of linear opacity in the left lower lung zone. This could be an area of atelectasis. For now, the patient on DuoNeb nebulized treatments [id number], she is on Perforomist and Pulmicort nebulized treatment twice a day. She is on IV Rocephin and she is also on IV Solu-Medrol 60 mg every 6 hours. She is on oxygen at 9 L with a pulse ox of 92%. Based on my records, the patient COPD is advanced. She has an FEV1 of 40% of predicted at baseline. Scan of the chest that was done on 12/24/2023 showed advanced COPD. Her previous described pneumonia in the lung bases improved and the patient continued to have some residual inflammatory changes in the lung bases and a stable 4 mm left upper lobe pulmonary nodule. The patient is a chronic smoker. She also has obstructive sleep apnea with an AHI of 16 maintained on CPAP therapy pressure of 12 cm of water. She has previous right nephrectomy for an underlying renal cell carcinoma. No clear evidence of any pulmonary metastasis at this point. She also suffers from chronic history kidney disease and chronic compression fracture of the lumbar spine with moderate to severe compression at the level of L1 and mild to moderate compr ession fraction at the level of L3 and L4. She has utilized lumbar braces in the past. She also has previous history of C. difficile colitis. On 06/18/2024, the patient is being seen for a follow-up. The patient was hospitalized for an acute on top of chronic hypoxic respiratory failure. She is currently on 7 L of oxygen by nasal cannula. She was hospitalized for an acute COPD exacerbation. She typically uses oxygen at 3 to 4 L/min nasal cannula on outpatient basis. She has an FEV1 of 40% of predicted. She has also history of renal cell carcinoma and she has undergone previous nephrectomy along with chronic stage III kidney disease. Her condition is stable. She remains on DuoNeb of chest. She remains on IV Solu-Medrol. She remains on budesonide nebulized treatments twice a day. Rest of medications are essentially unchanged and the patient is on empiric antibiotic coverage with IV Rocephin. White cell count of 15.6 with a hemoglobin 14.2 and a platelet count of 186. BUN is 23 with a creatinine 1 and the sodium is at 140. The viral screen was negative. No chest pain. No pleurisy. No hemoptysis. No altered mentation. The blood culture is showing preliminary gram-positive cocci in clusters, likely contaminant. No signs of any septicemia at this point in time. 06/19/2024, the patient is being seen for a follow-up. The patient is feeling better compared to yesterday. She has been weaned down to 60 to the maximal nasal cannula with a pulse ox of 94%. Her baseline is at 5 L. She remains on DuoNeb updrafts, Pulmicort Respules, IV Solu-Medrol 60 mg every 6 hours. She is also on empiric antibiotic coverage with IV Rocephin. No chest pain. No hemoptysis. Her white cell count of 21 with a hemoglobin of 14.2 and a platelet count of 230.. 27 with a creatinine of 1.04 and a sodium levels at 143 and a potassium level is at 4.6. No chest pain. No altered mentation. No hemodynamic instability. Blood culture was positive for gram-positive cocci and clusters, likely contaminant. Noted, the patient's procalcitonin level was only at 0.03. ID is on the case. On 06/20/2024, the patient is being seen for a follow-up. The patient is stable. She is still on 6 L of oxygen by nasal cannula. Pulse ox in the order of 95%. Slow but ongoing improvement. D-dimer is at 0.44. The white cell count is 15.2 with a hemoglobin of 12.4 and a platelet count of 180. Electrolytes are unchanged. BUN is 35 with a creatinine of 1.05. Medications remain unchanged. The patient has no new specific complaints. Remains on IV Solu-Medrol. Remains on DuoNeb nebulized treatments [id number]. On 06/21/2024, the patient is being seen for a follow-up. The patient remained in 60s of oxygen nasal cannula. Attempts were done to wean the FiO2 further yesterday. Nevertheless, the patient desaturated and based on that the patient was kept on oxygen at 6 L nasal cannula. Her current pulse ox is 91%. She is using the incentive spirometer. No chest pain. No significant cough or sputum production. The white cell count of 12.7 with a hemoglobin of 12.2 and a platelet count of 180. Sodium is at 139, potassium is at 4.7, serum bicarb is at 34 with a BUN of 40 and a creatinine of 1.02. LFTs are normal. Also, the patient underwent a CAT scan of the chest that showed a right basilar atelectatic change, chronic interstitial scarring involving the lingula and some bronchiectatic changes in the left lower lobe. Mild aneurysmal dilatation of the ascending aorta and cholelithiasis and another 3.4 cm left adrenal adenoma. There was another enlarged lymph node in the para-aortic region measuring 4.4 x 3.2 cm in size and a biliary stent was noted. Compression fractions involving the thoracic and lumbar spine moderate to severe in nature. The blood culture was positive for Staph hominis 1 out of 2. ID is on the case. The patient was kept on IV Rocephin. 06/22/2024, the patient is being seen for a follow-up. The patient is currently down to 5 L of oxygen by nasal cannula. Continues to have congestion cough and chest tightness and wheeze although this is gradually improving. Remains on bronchodilators and steroids. She is on DuoNeb of chest. She is on IV Rocephin. She is on IV Solu-Medrol 60 mg every 6 hours. She remains on Lovenox for DVT prophylaxis. The white cell count of 12 with a hemoglobin of 12 and a platelet count of 180. Sodium is at 139, bicarb is at 34, BUN is 40 with a creatinine of 1.02. Blood culture was positive for Staph hominis. 06/23/2024, the patient is being seen for a follow-up. Resting comfortably in bed on 5.5 L of oxygen by nasal cannula. Remains on bronchodilators and steroids. No significant events overnight. White cell count has dropped down to 12.7 with a hemoglobin 12.2 and a platelet count of 180. BUN is 40 with a creatinine of 1.02 and K level is at 4.7. Resting comfortably in bed. Tolerating her diet with no nausea or vomiting. The patient is seen today June 24, 2024 in follow-up on the selective care unit. She is sitting up at the bedside. Awake and alert in no acute distress. Still struggling with some shortness of breath on exertion. She is maintaining O2 saturations in the 90s on 5 L/min per nasal cannula. She is alternating with BiPAP 10/5 and 40% FiO2. Chest x-ray shows persistent bibasilar infiltrates and/or atelectasis. Blood cultures were positive for Staph hominis SS Chelsie bio septicus. She is currently on ceftriaxone. White count 14.1. Hemoglobin 14.0. Platelets 184. Sodium 138. Potassium 4.7. Bicarb 37. BUN 44. Creatinine 1.02. Glucose 103. Procalcitonin was negative at 0.04. She is continued on DuoNeb inhalations, Pulmicort and performance inhalations, Solu-Medrol. Lovenox for DVT prophylaxis. Protonix for GI prophylaxis. The patient is seen today June 25, 2024 in follow-up on the selective care unit. She is resting in bed. Awake and alert in no acute distress. Maintaining O2 saturation in the low 90s on 5 L/min per nasal cannula. Afebrile. She does have continued dyspnea with minimal exertion, dyspnea with conversation. She is continued on DuoNeb inhalations, Pulmicort and Perforomist inhalations, IV Solu- Medrol. Lovenox for DVT prophylaxis. Repeat blood culture revealed no growth. Procalcitonin negative at 0.04 The patient is seen today June 26, 2024 in follow-up on the selective care unit. She is currently sitting up in a chair at the bedside. Awake and alert in no acute distress. She continues to have a loose congested cough. Maintaining O2 saturations in the 90s on 5 L/min per nasal cannula. She has been afebrile. Chest x-ray shows persistent bibasilar acute infiltrates and/or atelectasis. Follow-up blood culture revealed no growth. Sodium 138. Potassium 4.6. Bicarb 38. BUN 40. Creatinine 0.89. Glucose 102. Procalcitonin was negative at 0.04. She does remain on DuoNeb inhalations, Pulmicort and Perforomist inhalations, IV Solu-Medrol. She was given Lasix 20 mg IVP x 1 today. No accurate intake and output recorded. The patient is seen today June 27, 2024 in follow-up on the selective care unit. She is currently sitting up in bed. Awake and alert in no acute distress. She denies any worsening shortness of breath, cough or congestion. She is maintaining good O2 saturations in the 90s on 4 L/min per nasal cannula. She is afebrile. Hemodynamically stable. She is continued on DuoNeb inhalations, Pulmicort and Perforomist inhalations, Solu-Medrol. Lovenox for DV T prophylaxis. Objective - Vital Signs Vital signs: Vital Signs Temp 97.5 F L 06/27/24 08:00 Pulse 92 06/27/24 12:22 Resp 17 06/27/24 11:32 BP 144/85 06/27/24 11:32 Pulse Ox 93 L 06/27/24 11:32 FiO2 40 06/26/24 23:48 Intake & Output 06/26/24 06/27/24 06/27/24 18:59 06:59 18:59 Intake Total 364 20 240 Output Total 500 200 Balance -136 -180 240 Weight 74.6 kg Intake: IV 10 20 Invasive Line 5 10 20 Oral 354 240 Output: Urine 500 200 Other: Voiding Method Bedside Commode Bedside Commode Bedside Commode External Catheter External Catheter External Catheter # Voids 2 1 # Bowel Movements 1 1 - Exam GENERAL EXAM: Alert, 63-year-old female, sitting up in bed, on 4 L nasal cannula, comfortable in no apparent distress. HEAD: Normocephalic. EYES: Normal reaction of pupils, equal size. NOSE: Clear with pink turbinates. THROAT: No erythema or exudates. NECK: No masses, no JVD. CHEST: No chest wall deformity. LUNGS: Equal air entry with bilateral scattered rhonchi, wheeze, diminished. CVS: S1 and S2 normal with no audible murmur, regular rhythm. ABDOMEN: No hepatosplenomegaly, normal bowel sounds, no guarding or rigidity. SPINE: No scoliosis or deformity SKIN: No rashes CENTRAL NERVOUS SYSTEM: No focal deficits, tone is normal in all 4 extremities. EXTREMITIES: There is no peripheral edema. No clubbing, no cyanosis. Peripheral pulses are intact. - Labs CBC & Chem 7: 06/24/24 11:35 06/26/24 07:16 Assessment and Plan Assessment: Acute on chronic hypoxic respiratory failure seconda secondary to COPD exacer bation and the patient is slowly improving and she has been alternating with the BiPAP and she has been weaned down to 4 L of oxygen by nasal cannula. Offered bronchoscopy with BAL however the patient declines Acute COPD exacerbation, no clear indication for underlying pneumonia. Procalcitonin negative at 0.04. The patient was on empiric antibiotic coverage with IV ceftriaxone. CAT scan of the chest showed some bronchiectatic changes in left lung base, some chronic anterior scarring in the lingular region and right basilar scar. No acute abnormalities. Acute on chronic hypoxic respiratory failure on 5 L of oxygen by nasal cannula, typically utilizes 3 to 4 L at home. Gram-positive cocci in the blood, likely contaminant. Staph hominis in the blood. Awaiting final cultures. Follow-up cultures revealed no growth. Completed Rocephin Severe COPD FEV1 of 40%, maintained on budesonide and Duoneb nebs. (unable to do Trelegy) Obstructive sleep apnea syndrome with apnea-hypopnea index of 16, on CPAP with pressure of 12 History of pulmonary nodule, being followed on outpatient basis, 14 x 8 mm subpleural nodule in the superior segment of the left lower lobe History of renal cell carcinoma previous nephrectomy History of L1 compression fracture and chronic back pain in addition to compression fracture of the L3-L4 Hypothyroidism Cholelithiasis Adrenal adenoma Periaortic lymph node measuring 4 x 3 cm in size Plan: The patient was seen and evaluated Medications reviewed Stable on 4 L nasal cannula Cleared for discharge from the pulmonary standpoint Complete a prednisone taper Continue her home Pulmicort inhalations Continue her home DuoNebs, albuterol HFA Evaluate for possible home oxygen Plan is for home with [facility] care Follow-up in our office in 1 week I have personally seen and examined the patient, performed the documentation and the assessment and plan as written. Number of minutes spent on the visit: 10 Dictation was produced using [employer] dictation software. Please excuse any grammatical, word or spelling errors.
--- NOTE | 2024-06-27 15:13 | P.PN ---
Subjective Progress Note Date: 06/26/24 Principal diagnosis: Reason for follow-up is positive blood culture Patient is a 63-year-old female with a past medical history significant for hypertension reflux COPD and asthma presenting to the hospital for evaluation of increasing shortness of breath diagnosed with COPD exacerbation with tracheobronchitis blood cultures were positive prompting this consultation. On today's evaluation that is 06/26/2024,the patient denies any fever or any chills, patient is complaining of shortness of breath though slightly better than yesterday after receiving a dose of diuretic she is currently 5 L nasal cannula oxygen denies any chest pain or worsening cough no abdominal pain or diarrhea. Patient did have a creatinine 0.89 no CBC was done today Objective - Vital Signs Vital signs: Vital Signs Temp 98.3 F 06/26/24 11:20 Pulse 95 06/26/24 13:06 Resp 20 06/26/24 11:20 BP 131/84 06/26/24 11:20 Pulse Ox 91 L 06/26/24 11:20 FiO2 40 06/26/24 09:11 Intake & Output 06/25/24 06/26/24 06/26/24 18:59 06:59 18:59 Intake Total 550 560 118 Balance 550 560 118 Intake: IV 10 20 Invasive Line 5 10 20 Oral 540 540 118 Other: Voiding Method External Catheter External Catheter External Catheter # Voids 2 1 - Exam GENERAL DESCRIPTION: Middle-age female lying in bed in no distress RESPIRATORY SYSTEM: Unlabored breathing , coarse breath sounds bilaterally HEART: S1 S2 regular rate and rhythm , ABDOMEN: Soft , no tenderness EXTREMITIES: No edema feet - Labs CBC & Chem 7: 06/24/24 11:35 06/26/24 07:16 Labs: Abnormal Lab Results - Last 24 Hours (Table) 06/26/24 Range/Units 07:16 Chloride 97 L (98-107) mmol/L Carbon Dioxide 38 H (22-30) mmol/L BUN 40 H (7-17) mg/dL Glucose 102 H (74-99) mg/dL Assessment and Plan (1) Bacteremia Current Visit: Yes Status: Acute Code(s): R78.81 - BACTEREMIA SNOMED Code(s): 7422108 (2) COPD exacerbation Current Visit: Yes Status: Acute Code(s): J44.1 - CHRONIC OBSTRUCTIVE PULMONARY DISEASE W (ACUTE) EXACERBATION SNOMED Code(s): 630432124 (3) Allergy to multiple antibiotics Current Visit: No Status: Acute Code(s): Z88.1 - ALLERGY STATUS TO OTHER ANTIBIOTIC AGENTS SNOMED Code(s): 820663924 (4) Leukocytosis Current Visit: No Status: Acute Code(s): D72.829 - ELEVATED WHITE BLOOD CELL COUNT, UNSPECIFIED SNOMED Code(s): 862936621 (5) Pneumonia Current Visit: No Status: Acute Code(s): J18.9 - PNEUMONIA, UNSPECIFIED ORGANISM SNOMED Code(s): 287538069 Plan: 1patient with a positive blood culture with Staphylococcus patient is likely staph epi and more likely skin contamination as the patient has no clinical disease to go along with it. 2patient with multiple antibiotic ALLERGIES that would limit the number of antibiotic safe to use. 3patient did have persistent finding on the chest x-ray however the patient did not have any fever did have normal CRP and procalcitonin that would go against pneumonia and has already completed course of Rocephin Dictation was produced using [employer] dictation software. please excuse any grammatical, word or spelling errors. Time with Patient: Less than 30
--- NOTE | 2024-06-27 15:14 | P.PN ---
Subjective Progress Note Date: 06/27/24 Principal diagnosis: Reason for follow-up is positive blood culture Patient is a 63-year-old female with a past medical history significant for hypertension reflux COPD and asthma presenting to the hospital for evaluation of increasing shortness of breath diagnosed with COPD exacerbation with tracheobronchitis blood cultures were positive prompting this consultation. On today's evaluation that is 06/27/2024,the patient remains to be afebrile, patient is on down to 3 L nasal cannula oxygen still complaining of shortness of breath but slightly better than yesterday no chest pain or worsening cough no abdominal pain or diarrhea. No new labs were obtained today Objective - Vital Signs Vital signs: Vital Signs Temp 97.5 F L 06/27/24 08:00 Pulse 92 06/27/24 12:22 Resp 17 06/27/24 11:32 BP 144/85 06/27/24 11:32 Pulse Ox 93 L 06/27/24 11:32 FiO2 40 06/26/24 23:48 Intake & Output 06/26/24 06/27/24 06/27/24 18:59 06:59 18:59 Intake Total 364 20 240 Output Total 500 200 Balance -136 -180 240 Weight 74.6 kg Intake: IV 10 20 Invasive Line 5 10 20 Oral 354 240 Output: Urine 500 200 Other: Voiding Method Bedside Commode Bedside Commode Bedside Commode External Catheter External Catheter External Catheter # Voids 2 1 # Bowel Movements 1 1 - Exam GENERAL DESCRIPTION: Middle-age female lying in bed in no distress RESPIRATORY SYSTEM: Unlabored breathing , coarse breath sounds bilaterally HEART: S1 S2 regular rate and rhythm , ABDOMEN: Soft , no tenderness EXTREMITIES: No edema feet - Labs CBC & Chem 7: 06/24/24 11:35 06/26/24 07:16 Assessment and Plan (1) Bacteremia Current Visit: Yes Status: Acute Code(s): R78.81 - BACTEREMIA SNOMED Code(s): 4932068 (2) COPD exacerbation Current Visit: Yes Status: Acute Code(s): J44.1 - CHRONIC OBSTRUCTIVE PULMONARY DISEASE W (ACUTE) EXACERBATION SNOMED Code(s): 442453748 (3) Allergy to multiple antibiotics Current Visit: No Status: Acute Code(s): Z88.1 - ALLERGY STATUS TO OTHER ANTIBIOTIC AGENTS SNOMED Code(s): 709280910 (4) Leukocytosis Current Visit: No Status: Acute Code(s): D72.829 - ELEVATED WHITE BLOOD CELL COUNT, UNSPECIFIED SNOMED Code(s): 147964212 (5) Pneumonia Current Visit: No Status: Acute Code(s): J18.9 - PNEUMONIA, UNSPECIFIED ORGANISM SNOMED Code(s): 890186301 Plan: 1patient with a positive blood culture with Staphylococcus patient is likely staph epi and more likely skin contamination as the patient has no clinical disease to go along with it. 2patient with multiple antibiotic ALLERGIES that would limit the number of antibiotic safe to use. 3patient did have persistent finding on the chest x-ray however the patient did not have any fever did have normal CRP and procalcitonin that would go against pneumonia and has already completed course of Rocephin 4leukocytosis more likely steroid related will improve as the Solu-Medrol has been switched over to prednisone check a CBC with a.m. labs Dictation was produced using [employer] dictation software. please excuse any grammatical, word or spelling errors. Time with Patient: Less than 30
[2024-06-28 07:08] LABS: Basophils # (A) 0.13 10*3/uL (0.00-0.10); Basophils % (A) 0.7 %; Eosinophils # (A) 0.03 10*3/uL (0.04-0.35); Eosinophils % (A) 0.2 %; HCT 44.3 % (37.2-46.3); HGB 13.8 g/dL (12.0-15.0); Lymphocytes # (A) 2.17 10*3/uL (0.90-5.00); Lymphocytes % (A) 11.3 %; MCH 31.6 pg (27.0-32.0); MCHC 31.2 g/dL (32.0-37.0); MCV 101.4 fL (80.0-97.0); Mean Platelet Volume 12.9 fL (9.5-12.2); Monocytes # (A) 1.95 10*3/uL (0.20-1.00); Monocytes % (A) 10.1 %; Neutrophils # (A) 14.09 10*3/uL (1.80-7.70); Neutrophils % (A) 73.2 %; Platelet Count 183 10*3/uL (140-440); RBC 4.37 10*6/uL (4.10-5.20); RDW 13.5 % (11.5-14.5); WBC 19.23 10*3/uL (4.50-10.00)
[2024-06-28 07:25] LABS: African American GFR (CKD) 83 (>60 ml/min/1.73 sqM); Anion Gap 3 mmol/L; Blood Urea Nitrogen 44 mg/dL (7-17); C Reactive Protein <0.5 mg/dL (<1.0); Calcium 8.5 mg/dL (8.4-10.2); Carbon Dioxide 37 mmol/L (22-30); Chloride 102 mmol/L (98-107); Glucose 71 mg/dL (74-99); Non-African American GFR(CKD) 72 (>60 ml/min/1.73 sqM); Sodium 142 mmol/L (137-145)
[2024-06-28] MEDS: predniSONE 20 MG TAB PO SCH (07:29)
[2024-06-28] MEDS: FUROSEMIDE 10 MG/ML 4 ML VIAL IV STA (07:50)
--- NOTE | 2024-06-28 09:50 | P.PN ---
Subjective Progress Note Date: 06/27/24 This is a 63-year-old female who was recently admitted with increasing shortness of breath with COPD exacerbation and initial significantly high oxygen requirements including BiPAP. Patient maintained on 6 L via nasal cannula currently and working on weaning as tolerated. Patient chronically uses oxygen outpatient. Patient has had prolonged hospitalization and slow improvements with minimal improvement. Patient reports to feeling increasing shortness of breath with congestion and cough and extremely dyspneic on exertion. Not quite ready for discharge at this time. 06/26/2024 Patient is seen in follow-up today currently on the BiPAP and reports she was feeling more short of breath and congested. Patient is slow to progress showing very minimal improvement and is being followed by pulmonary. Patient currently on 5 L at 90% and needs to be maintaining 90% on 4 L before being considered for discharge. Per pulmonary not quite ready. Patient is afebrile with no reports of chest pain or palpitations. 06/27/2024 Patient is seen in follow-up today currently on the BiPAP although is transit ioning down from 5 L to 4-1/2 L saturating at 90%. Patient reports she chronically wears 4 L outpatient with pulmonary following. Patient is being transition to oral prednisone and continued breathing treatments. Encouraged increase activity as tolerated and getting up out of the bed more often. Patient reports she is attempting to get up more frequently and get to the bathroom. Review of systems: Constitutional: No reports of fatigue, fever, or chills Cardiovascular: No reports of chest pain or palpitations Respiratory: reports of worsening shortness of breath and continued cough GI: No reports of nausea, no reports of vomiting, no diarrhea : No reports of dysuria or retention Neurovascular: reports of generalized weakness, reports is getting up and moving around All medications have been reviewed PHYSICAL EXAMINATION: GENERAL: The patient is alert and oriented x4, Well developed, well nourished. Elderly appearing, ill-appearing, obese HEENT: Pupils are round and equally reacting to light. EOMI. no scleral icterus. No conjunctival pallor. Normocephalic, atraumatic. No pharyngeal erythema. No thyromegaly. CARDIOVASCULAR: S1 and S2 muffled PULMONARY: diminished breath sounds bilaterally with forced expiratory wheezing and coarse scattered rhonchi noted. ABDOMEN: soft. Nontender on exam. obese. non-distended, normoactive bowel sounds. No palpable organomegaly. MUSCULOSKELETAL: No joint swelling or deformity. EXTREMITIES: No cyanosis, clubbing, or pedal edema. NEUROLOGICAL: Gross neurological examination did not reveal any focal deficits. Diffuse weakness SKIN: No rashes. Assessment: Chronic obstructive pulmonary disease acute exacerbation with acute purulent tracheobronchitis with acute on chronic hypoxic respiratory failure, initially requiring BiPAP, currently on 5 L nasal cannula Right lower lobe opacity with air bronchogram and chronic atelectasis Initial blood culture positive, likely contaminant, repeats are negative Interstitial scarring on the CT scan GERD Hyperlipidemia Liver disease Sleep apnea with a CPAP History of irritable bowel syndrome with colitis Anxiety/bipolar/depression Former smoker Obesity with a BMI of 30.0 History of right nephrectomy in 2022 GI prophylaxis DVT prophylaxis Full code Plan: Recommend to continue with current medications and management with pulmonary following closely. Patient is maintained on IV steroids along with [id number] breathing treatments and not quite ready for discharge per pulmonary. Patient remains on 5L and will need to titrate down to at least 4 L before discharge is considered per pulmonary Wean FiO2 as tolerated and increase activity as tolerated. Continue using incentive spirometer at least 10 times every hour while awake Patient wearing BiPAP more frequently throughout the day and reporting she feels congested and tight on air movement. Slightly improved today and is being transition to oral prednisone per pulmonary Monitor for any aspiration risks and continue with aspiration precautions Follow-up on repeat labs and replace electrolytes per protocol The impression and plan of care has been dictated by Peri Mg, nurse practitioner as directed. Dr. Zeyad MD I have performed a history and examination and MDM of this patient, discussed the same with the dictator, and agree with the dictator's assessment and plan as written ,documented as a scribe. Based on total visit time, I have performed more than 50% of the visit. Any additional findings or plans will be noted. Objective - Vital Signs Vital signs: Vital Signs Temp 97.9 F 06/27/24 20:00 Pulse 86 06/27/24 20:00 Resp 18 06/27/24 20:00 BP 124/76 06/27/24 20:00 Pulse Ox 96 06/27/24 20:00 FiO2 40 06/26/24 23:48 Intake & Output 06/27/24 06/27/24 06/28/24 06:59 18:59 06:59 Intake Total 20 780 Output Total 200 Balance -180 780 Weight 74.6 kg Intake: IV 20 Invasive Line 5 20 Oral 780 Output: Urine 200 Other: Voiding Method Bedside Commode Bedside Commode External Catheter External Catheter # Voids 3 # Bowel Movements 1 - Labs CBC & Chem 7: 06/28/24 05:36 06/28/24 05:36
--- NOTE | 2024-06-28 10:26 | XR ---
EXAMINATION TYPE: XR chest 1V portable DATE OF EXAM: 06/28/2024 10:13 AM COMPARISON: 06/24/2024 CLINICAL INDICATION: Female, 63 years old with history of Shortness of breath; [facility] TECHNIQUE: XR chest 1V portable Frontal view of the chest. FINDINGS: Lungs/Pleura: Left lower midlung flat like atelectasis. There is no evidence of pleural effusion, foc al consolidation, or pneumothorax. Pulmonary vascularity: Unremarkable. Heart/mediastinum: Cardiomediastinal silhouette is unremarkable. Musculoskeletal: No acute osseous pathology. IMPRESSION: 1. No acute cardiopulmonary disease/process. 2. Left lower midlung flat like atelectasis. [facility], , 06/28/2024 10:24 AM
--- NOTE | 2024-06-28 14:50 | P.PN ---
Subjective Progress Note Date: 06/28/24 Principal diagnosis: Acute on chronic hypoxic respiratory failure with acute COPD exacerbation This is a very pleasant 63-year-old female, known history of severe COPD, her FEV1 is 60% of the predicted, also known to have history of obstructive sleep apnea, normally on CPAP at a pressure of 12 cm of water. She had previous history of renal cell carcinoma undergone previous right nephrectomy followed by targeted therapy. History of GERD, history of multiple admissions with COPD exacerbation in the past. She was just discharged September 15, 2023 for a COPD exacerbation including both hypoxic and hypercapnic respiratory failure requiring BiPAP support. The patient presented to the emergency department with worsening shortness of breath. She stated that her oxygen levels were dropping even on 3 and half liters of oxygen by nasal cannula. She was also utilizing an albuterol rescue inhaler. Based on that, she decided to come in to the emergency department. She denies having any chest pain. No hemoptysis. No pleurisy. Some mucus production. No chest pain. No nausea or emesis. No swelling lower extremities. The white cell count of 14.7 with a hemoglobin 14.8 and a platelet count of 225. Normal coagulation profile. Sodium is at 140, BUN 21 with a creatinine 1.2. Serum bicarb is at 36. Viral 4 Plex has been negative. Troponins are negative. LFTs are normal and the procalcitonin level is at 0.03. I reviewed the chest x-ray from this current admission and it shows small amount of linear opacity in the left lower lung zone. This could be an area of atelectasis. For now, the patient on DuoNeb nebulized treatments [id number], she is on Perforomist and Pulmicort nebulized treatment twice a day. She is on IV Rocephin and she is also on IV Solu-Medrol 60 mg every 6 hours. She is on oxygen at 9 L with a pulse ox of 92%. Based on my records, the patient COPD is advanced. She has an FEV1 of 40% of predicted at baseline. Scan of the chest that was done on 12/24/2023 showed advanced COPD. Her previous described pneumonia in the lung bases improved and the patient continued to have some residual inflammatory changes in the lung bases and a stable 4 mm left upper lobe pulmonary nodule. The patient is a chronic smoker. She also has obstructive sleep apnea with an AHI of 16 maintained on CPAP therapy pressure of 12 cm of water. She has previous right nephrectomy for an underlying renal cell carcinoma. No clear evidence of any p ulmonary metastasis at this point. She also suffers from chronic history kidney disease and chronic compression fracture of the lumbar spine with moderate to severe compression at the level of L1 and mild to moderate compression fraction at the level of L3 and L4. She has utilized lumbar braces in the past. She also has previous history of C. difficile colitis. On 06/18/2024, the patient is being seen for a follow-up. The patient was hospitalized for an acute on top of chronic hypoxic respiratory failure. She is currently on 7 L of oxygen by nasal cannula. She was hospitalized for an acute COPD exacerbation. She typically uses oxygen at 3 to 4 L/min nasal cannula on outpatient basis. She has an FEV1 of 40% of predicted. She has also history of renal cell carcinoma and she has undergone previous nephrectomy along with chronic stage III kidney disease. Her condition is stable. She remains on DuoNeb of chest. She remains on IV Solu-Medrol. She remains on budesonide nebulized treatments twice a day. Rest of medications are essentially unchanged and the patient is on empiric antibiotic coverage with IV Rocephin. White cell count of 15.6 with a hemoglobin 14.2 and a platelet count of 186. BUN is 23 with a creatinine 1 and the sodium is at 140. The viral screen was negative. No chest pain. No pleurisy. No hemoptysis. No altered mentation. The blood culture is showing preliminary gram-positive cocci in clusters, likely contaminant. No signs of any septicemia at this point in time. 06/19/2024, the patient is being seen for a follow-up. The patient is feeling be tter compared to yesterday. She has been weaned down to 60 to the maximal nasal cannula with a pulse ox of 94%. Her baseline is at 5 L. She remains on DuoNeb updrafts, Pulmicort Respules, IV Solu-Medrol 60 mg every 6 hours. She is also on empiric antibiotic coverage with IV Rocephin. No chest pain. No hemoptysis. Her white cell count of 21 with a hemoglobin of 14.2 and a platelet count of 2 30.. 27 with a creatinine of 1.04 and a sodium levels at 143 and a potassium level is at 4.6. No chest pain. No altered mentation. No hemodynamic instability. Blood culture was positive for gram-positive cocci and clusters, likely contaminant. Noted, the patient's procalcitonin level was only at 0.03. ID is on the case. On 06/20/2024, the patient is being seen for a follow-up. The patient is stable. She is still on 6 L of oxygen by nasal cannula. Pulse ox in the order of 95%. Slow but ongoing improvement. D-dimer is at 0.44. The white cell count is 15.2 with a hemoglobin of 12.4 and a platelet count of 180. Electrolytes are unchanged. BUN is 35 with a creatinine of 1.05. Medications remain unchanged. The patient has no new specific complaints. Remains on IV Solu-Medrol. Remains on DuoNeb nebulized treatments [id number]. On 06/21/2024, the patient is being seen for a follow-up. The patient remained in 60s of oxygen nasal cannula. Attempts were done to wean the FiO2 further yesterday. Nevertheless, the patient desaturated and based on that the patient was kept on oxygen at 6 L nasal cannula. Her current pulse ox is 91%. She is using the incentive spirometer. No chest pain. No significant cough or sputum production. The white cell count of 12.7 with a hemoglobin of 12.2 and a platelet count of 180. Sodium is at 139, potassium is at 4.7, serum bicarb is at 34 with a BUN of 40 and a creatinine of 1.02. LFTs are normal. Also, the patient underwent a CAT scan of the chest that showed a right basilar atelectatic change, chronic interstitial scarring involving the lingula and some bronchiectatic changes in the left lower lobe. Mild aneurysmal dilatation of the ascending aorta and cholelithiasis and another 3.4 cm left adrenal adenoma. There was another enlarged lymph node in the para-aortic region measuring 4.4 x 3.2 cm in size and a biliary stent was noted. Compression fractions involving the thoracic and lumbar spine moderate to severe in nature. The blood culture was positive for Staph hominis 1 out of 2. ID is on the case. The patient was kept on IV Rocephin. 06/22/2024, the patient is being seen for a follow-up. The patient is currently down to 5 L of oxygen by nasal cannula. Continues to have congestion cough and chest tightness and wheeze although this is gradually improving. Remains on bronchodilators and steroids. She is on DuoNeb of chest. She is on IV Rocephin. She is on IV Solu-Medrol 60 mg every 6 hours. She remains on Lovenox for DVT prophylaxis. The white cell count of 12 with a hemoglobin of 12 and a platelet count of 180. Sodium is at 139, bicarb is at 34, BUN is 40 with a creatinine of 1.02. Blood culture was positive for Staph hominis. 06/23/2024, the patient is being seen for a follow-up. Resting comfortably in bed on 5.5 L of oxygen by nasal cannula. Remains on bronchodilators and steroids. No significant events overnight. White cell count has dropped down to 12.7 with a hemoglobin 12.2 and a platelet count of 180. BUN is 40 with a creatinine of 1.02 and K level is at 4.7. Resting comfortably in bed. Tolerating her diet with no nausea or vomiting. The patient is seen today June 24, 2024 in follow-up on the selective care unit. She is sitting up at the bedside. Awake and alert in no acute distress. Still struggling with some shortness of breath on exertion. She is maintaining O2 saturations in the 90s on 5 L/min per nasal cannula. She is alternating with BiPAP 10/5 and 40% FiO2. Chest x-ray shows persistent bibasilar infiltrates and/or atelectasis. Blood cultures were positive for Staph hominis SS Chelsie bio septicus. She is currently on ceftriaxone. White count 14.1. Hemoglobin 14.0. Platelets 184. Sodium 138. Potassium 4.7. Bicarb 37. BUN 44. Creatinine 1.02. Glucose 103. Procalcitonin was negative at 0.04. She is continued on DuoNeb inhalations, Pulmicort and performance inhalations, Solu-Medrol. Lovenox for DVT prophylaxis. Protonix for GI prophylaxis. The patient is seen today June 25, 2024 in follow-up on the selective care unit. She is resting in bed. Awake and alert in no acute distress. Maintaining O2 saturation in the low 90s on 5 L/min per nasal cannula. Afebrile. She does have continued dyspnea with minimal exertion, dyspnea with conversation. She is continued on DuoNeb inhalations, Pulmicort and Perforomist inhalations, IV Solu- Medrol. Lovenox for DVT prophylaxis. Repeat blood culture revealed no growth. Procalcitonin negative at 0.04 The patient is seen today June 26, 2024 in follow-up on the selective care unit. She is currently sitting up in a chair at the bedside. Awake and alert in no acute distress. She continues to have a loose congested cough. Maintaining O2 saturations in the 90s on 5 L/min per nasal cannula. She has been afebrile. Chest x-ray shows persistent bibasilar acute infiltrates and/or atelectasis. Follow-up blood culture revealed no growth. Sodium 138. Potassium 4.6. Bicarb 38. BUN 40. Creatinine 0.89. Glucose 102. Procalcitonin was negative at 0.04. She does remain on DuoNeb inhalations, Pulmicort and Perforomist inhalations, IV Solu-Medrol. She was given Lasix 20 mg IVP x 1 today. No accurate intake and output recorded. The patient is seen today June 27, 2024 in follow-up on the selective care unit. She is currently sitting up in bed. Awake and alert in no acute distress. She denies any worsening shortness of breath, cough or congestion. She is maintaining good O2 saturations in the 90s on 4 L/min per nasal cannula. She is afebrile. Hemodynamically stable. She is continued on DuoNeb inhalations, Pulmicort and Perforomist inhalations, Solu-Medrol. Lovenox for DVT prophylaxis. Seen today on 06/28/2024, overall the patient is feeling better but now she has higher FiO2 requirement less cough less wheezing or shortness of breath. She is now on 6 L nasal cannula and she was on 4 L nasal cannula yesterday. O2 sat is 91%, continues to have intermittent cough and wheezing no fever no chills no hemoptysis, on multiple treatments/bronchodilators and on steroids, offered bronchoscopy, patient declined. Objective - Vital Signs Vital signs: Vital Signs Temp 98.1 F 06/28/24 08:00 Pulse 107 H 06/28/24 11:52 Resp 20 06/28/24 11:28 BP 134/82 06/28/24 11:28 Pulse Ox 91 L 06/28/24 11:28 FiO2 50 06/28/24 08:14 Intake & Output 06/27/24 06/28/24 06/28/24 18:59 06:59 18:59 Intake Total 780 598 Output Total 800 1900 Balance 780 800 1301 Weight 74.4 kg Intake: Oral 780 598 Output: Urine 800 1900 Other: Voiding Method Bedside Commode Bedside Commode Bedside Commode External Catheter External Catheter External Catheter # Voids 3 1 # Bowel Movements 1 1 1 - Exam GENERAL EXAM: Alert, 63-year-old female, sitting up in bed, on 6 L nasal cannula, comfortable in no apparent distress. HEAD: Normocephalic. EYES: Normal reaction of pupils, equal size. NOSE: Clear with pink turbinates. THROAT: No erythema or exudates. NECK: No masses, no JVD. CHEST: No chest wall deformity. LUNGS: Equal air entry with bilateral scattered rhonchi, wheeze, diminished. CVS: S1 and S2 normal with no audible murmur, regular rhythm. ABDOMEN: No hepatosplenomegaly, normal bowel sounds, no guarding or rigidity. SKIN: No rashes CENTRAL NERVOUS SYSTEM: No focal deficits, tone is normal in all 4 extremities. EXTREMITIES: There is no peripheral edema. No clubbing, no cyanosis. Peripheral pulses are intact. - Labs CBC & Chem 7: 06/28/24 05:36 06/28/24 05:36 Labs: Abnormal Lab Results - Last 24 Hours (Table) 06/28/24 06/28/24 Range/Units 05:36 05:36 WBC 19.23 H (4.50-10.00) 10*3/uL MCV 101.4 H (80.0-97.0) fL MCHC 31.2 L (32.0-37.0) g/dL MPV 12.9 H (9.5-12.2) fL Immature Gran # 0.86 H (0.00-0.04) 10*3/uL Neutrophils # 14.09 H (1.80-7.70) 10*3/uL Monocytes # 1.95 H (0.20-1.00) 10*3/uL Eosinophils # 0.03 L (0.04-0.35) 10*3/uL Basophils # 0.13 H (0.00-0.10) 10*3/uL Carbon Dioxide 37 H (22-30) mmol/L BUN 44 H (7-17) mg/dL Glucose 71 L (74-99) mg/dL Assessment and Plan Assessment: Impression Acute on chronic hypoxic respiratory failure seconda secondary to COPD exacerbation and the patient is slowly improving Acute COPD exacerbation, no clear indication for underlying pneumonia. Severe COPD FEV1 of 40%, maintained on budesonide and Duoneb nebs. (unable to do Trelegy) Obstructive sleep apnea syndrome with apnea-hypopnea index of 16, on CPAP with pressure of 12 History of pulmonary nodule, being followed on outpatient basis, 14 x 8 mm subpleural nodule in the superior segment of the left lower lobe History of renal cell carcinoma previous nephrectomy History of L1 compression fracture and chronic back pain in addition to compression fracture of the L3-L4 Hypothyroidism Cholelithiasis Adrenal adenoma Periaortic lymph node measuring 4 x 3 cm in size Recommendation: Continue present course of treatment Continue bronchodilators Continue prednisone Continue to titrate oxygen once she is down to 5 L or less consider discharge planning patient does have home O2 Continue DuoNeb [facility] Needs prednisone taper as an outpatient basis postdischarge Will continue to follow Time with Patient: Less than 30
--- NOTE | 2024-06-28 15:46 | P.PN ---
Subjective Progress Note Date: 06/28/24 Principal diagnosis: Reason for follow-up is positive blood culture Patient is a 63-year-old female with a past medical history significant for hypertension reflux COPD and asthma presenting to the hospital for evaluation of increasing shortness of breath diagnosed with COPD exacerbation with tracheobronchitis blood cultures were positive prompting this consultation. On today's evaluation that is 06/28/2024, the patient continues to be afebrile, the patient is on 6 L nasal cannula oxygen and complaining of more shortness of breath today but no chest pain no worsening cough no nausea vomiting no abdominal pain or diarrhea. Patient white count is up to 19.3 today, creatinine 0.86 chest x-ray no acute cardiopulmonary disease process Objective - Vital Signs Vital signs: Vital Signs Temp 98.1 F 06/28/24 08:00 Pulse 107 H 06/28/24 11:52 Resp 20 06/28/24 11:28 BP 134/82 06/28/24 11:28 Pulse Ox 91 L 06/28/24 11:28 FiO2 50 06/28/24 08:14 Intake & Output 06/27/24 06/28/24 06/28/24 18:59 06:59 18:59 Intake Total 780 598 Output Total 800 1900 Balance 780 800 1302 Weight 74.4 kg Intake: Oral 780 598 Output: Urine 800 1900 Other: Voiding Method Bedside Commode Bedside Commode Bedside Commode External Catheter External Catheter External Catheter # Voids 3 1 # Bowel Movements 1 1 1 - Exam GENERAL DESCRIPTION: Middle-age female lying in bed in no distress RESPIRATORY SYSTEM: Unlabored breathing , coarse breath sounds bilaterally HEART: S1 S2 regular rate and rhythm , ABDOMEN: Soft , no tenderness EXTREMITIES: No edema feet - Labs CBC & Chem 7: 06/28/24 05:36 06/28/24 05:36 Labs: Abnormal Lab Results - Last 24 Hours (Table) 06/28/24 06/28/24 Range/Units 05:36 05:36 WBC 19.23 H (4.50-10.00) 10*3/uL MCV 101.4 H (80.0-97.0) fL MCHC 31.2 L (32.0-37.0) g/dL MPV 12.9 H (9.5-12.2) fL Immature Gran # 0.86 H (0.00-0.04) 10*3/uL Neutrophils # 14.09 H (1.80-7.70) 10*3/uL Monocytes # 1.95 H (0.20-1.00) 10*3/uL Eosinophils # 0.03 L (0.04-0.35) 10*3/uL Basophils # 0.13 H (0.00-0.10) 10*3/uL Carbon Dioxide 37 H (22-30) mmol/L BUN 44 H (7-17) mg/dL Glucose 71 L (74-99) mg/dL Assessment and Plan (1) Bacteremia Current Visit: Yes Status: Acute Code(s): R78.81 - BACTEREMIA SNOMED Code(s): 3422708 (2) COPD exacerbation Current Visit: Yes Status: Acute Code(s): J44.1 - CHRONIC OBSTRUCTIVE PULMONARY DISEASE W (ACUTE) EXACERBATION SNOMED Code(s): 256689063 (3) Allergy to multiple antibiotics Current Visit: No Status: Acute Code(s): Z88.1 - ALLERGY STATUS TO OTHER ANTIBIOTIC AGENTS SNOMED Code(s): 720539222 (4) Leukocytosis Current Visit: No Status: Acute Code(s): D72.829 - ELEVATED WHITE BLOOD CELL COUNT, UNSPECIFIED SNOMED Code(s): 504115375 (5) Pneumonia Current Visit: No Status: Acute Code(s): J18.9 - PNEUMONIA, UNSPECIFIED ORGANISM SNOMED Code(s): 974536128 Plan: 1patient with a positive blood culture with Staphylococcus patient is likely staph epi and more likely skin contamination as the patient has no clinical disease to go along with it. 2patient with multiple antibiotic ALLERGIES that would limit the number of antibiotic safe to use. 3patient did have persistent finding on the chest x-ray however the patient did not have any fever did have normal CRP and procalcitonin that would go against pneumonia and has already completed course of Rocephin 4leukocytosis more likely steroid related seem to have slight worsening today despite his condition of Solu-Medrol chest x-ray was negative for any pneumonia will add nystatin swish and swallow as Diflucan cannot be added because of drug interaction and repeat his CBC with a.m. lab Dictation was produced using [employer] software. please excuse any grammatical, word or spelling errors.
[2024-06-28] MEDS: NYSTATIN 100,000 UNIT/ML SUSP 500,000 UNIT/5 ML CUP PO SCH (17:13)
[2024-06-28 23:06] VITALS: RESP 19
[2024-06-29 04:57] LABS: Basophils # (A) 0.13 10*3/uL (0.00-0.10); Basophils % (A) 0.7 %; Eosinophils # (A) 0.19 10*3/uL (0.04-0.35); HCT 43.8 % (37.2-46.3); HGB 13.5 g/dL (12.0-15.0); Lymphocytes # (A) 3.09 10*3/uL (0.90-5.00); Lymphocytes % (A) 16.2 %; MCH 30.7 pg (27.0-32.0); MCHC 30.8 g/dL (32.0-37.0); MCV 99.5 fL (80.0-97.0); Monocytes # (A) 1.65 10*3/uL (0.20-1.00); Monocytes % (A) 8.7 %; Neutrophils # (A) 13.15 10*3/uL (1.80-7.70); Neutrophils % (A) 68.9 %; Platelet Count 141 10*3/uL (140-440); RDW 13.7 % (11.5-14.5); WBC 19.06 10*3/uL (4.50-10.00)
--- NOTE | 2024-06-29 06:43 | P.PN ---
Subjective Progress Note Date: 06/28/24 This is a 63-year-old female who was recently admitted with increasing shortness of breath with COPD exacerbation and initial significantly high oxygen requirements including BiPAP. Patient maintained on 6 L via nasal cannula currently and working on weaning as tolerated. Patient chronically uses oxygen outpatient. Patient has had prolonged hospitalization and slow improvements with minimal improvement. Patient reports to feeling increasing shortness of breath with congestion and cough and extremely dyspneic on exertion. Not quite ready for discharge at this time. 06/26/2024 Patient is seen in follow-up today currently on the BiPAP and reports she was feeling more short of breath and congested. Patient is slow to progress showing very minimal improvement and is being followed by pulmonary. Patient currently on 5 L at 90% and needs to be maintaining 90% on 4 L before being considered for discharge. Per pulmonary not quite ready. Patient is afebrile with no reports of chest pain or palpitations. 06/27/2024 Patient is seen in follow-up today currently on the BiPAP although is transit ioning down from 5 L to 4-1/2 L saturating at 90%. Patient reports she chronically wears 4 L outpatient with pulmonary following. Patient is being transition to oral prednisone and continued breathing treatments. Encouraged increase activity as tolerated and getting up out of the bed more often. Patient reports she is attempting to get up more frequently and get to the bathroom. 06/28/2024 Patient is seen in follow-up today continues to be significantly short of breath. Patient reports overnight she required increasing oxygen demands and apparently the oxygen tubing was disconnected and patient was not receiving oxygen after breathing treatment. Patient is on BiPAP intermittently and uses CPAP outpatient. Patient chronically wears 4 L and per pulmonary, continue monitoring until oxygen demands are at least 4 to 5 L before considering discharge. Per their documentation, bronchoscopy was recommended and patient refused. Patient is afebrile denies any chest pain or palpitations. Patient continues to report cough but slightly improved. Patient is ambulating and plans on returning home on discharge. Encouraged incentive spirometer use and increased activity as tolerated. Wean FiO2 and currently maintained on 6 L. Review of systems: Constitutional: No reports of fatigue, fever, or chills Cardiovascular: No reports of chest pain or palpitations Respiratory: reports of worsening shortness of breath overnight and continued cough GI: No reports of nausea, no reports of vomiting, no diarrhea : No reports of dysuria or retention Neurovascular: reports of generalized weakness, reports is getting up and moving around All medications have been reviewed PHYSICAL EXAMINATION: GENERAL: The patient is alert and oriented x4, Well developed, well nourished. Elderly appearing, ill-appearing, obese HEENT: Pupils are round and equally reacting to light. EOMI. no scleral icterus. No conjunctival pallor. Normocephalic, atraumatic. No pharyngeal erythema. No thyromegaly. CARDIOVASCULAR: S1 and S2 muffled PULMONARY: diminished breath sounds bilaterally with forced expiratory wheezing and coarse scattered rhonchi noted. ABDOMEN: soft. Nontender on exam. obese. non-distended, normoactive bowel sounds. No palpable organomegaly. MUSCULOSKELETAL: No joint swelling or deformity. EXTREMITIES: No cyanosis, clubbing, or pedal edema. NEUROLOGICAL: Gross neurological examination did not reveal any focal deficits. Diffuse weakness SKIN: No rashes. Assessment: Chronic obstructive pulmonary disease acute exacerbation with acute purulent tracheobronchitis with acute on chronic hypoxic respiratory failure, initially requiring BiPAP, currently on 5 L nasal cannula Right lower lobe opacity with air bronchogram and chronic atelectasis Initial blood culture positive, likely contaminant, repeats are negative Interstitial scarring on the CT scan GERD Hyperlipidemia Liver disease Sleep apnea with a CPAP History of irritable bowel syndrome with colitis Anxiety/bipolar/depression Former smoker Obesity with a BMI of 30.0 History of right nephrectomy in 2022 GI prophylaxis DVT prophylaxis Full code Plan: Recommend to continue with current medications and management with pulmonary following closely. Patient is maintained on IV steroids along with around-the- clock breathing treatments and not quite ready for discharge per pulmonary. Patient remains on 6L and will need to titrate down to at least 4-5 L before discharge is considered per pulmonary. Pulmonary did recommend possible bronchoscopy although patient refused Wean FiO2 as tolerated and increase activity as tolerated. Continue using incentive spirometer at least 10 times every hour while awake Patient wearing BiPAP more frequently throughout the day and reporting she feels congested and tight on air movement. Slightly improved today and is being transition to oral prednisone per pulmonary Monitor for any aspiration risks and continue with aspiration precautions Follow-up on repeat labs and replace electrolytes per protocol. White count remains elevated likely reactive with infectious disease also following and adding nystatin swish and swallow Possible discharge planning in 24 to 48 hours once oxygen requirements have improved. Patient does have chronic oxygen at home and wears 4 L normally and also has CPAP at home. The impression and plan of care has been dictated by Peri Mg, nurse practitioner as directed. Dr. Zeyad MD I have performed a history and examination and MDM of this patient, discussed the same with the dictator, and agree with the dictator's assessment and plan as written ,documented as a scribe. Based on total visit time, I have performed more than 50% of the visit. Any additional findings or plans will be noted. Objective - Vital Signs Vital signs: Vital Signs Temp 98.1 F 06/28/24 08:00 Pulse 120 H 06/28/24 08:35 Resp 22 06/28/24 08:10 BP 143/84 06/28/24 08:00 Pulse Ox 94 L 06/28/24 08:14 FiO2 50 06/28/24 08:14 Intake & Output 06/27/24 06/28/24 06/28/24 18:59 06:59 18:59 Intake Total 780 358 Output Total 800 700 Balance 780 -800 -342 Weight 74.4 kg Intake: Oral 780 358 Output: Urine 800 700 Other: Voiding Method Bedside Commode Bedside Commode Bedside Commode External Catheter External Catheter External Catheter # Voids 3 1 # Bowel Movements 1 1 1 - Labs CBC & Chem 7: 06/29/24 04:15 06/28/24 05:36 Labs: Abnormal Lab Results - Last 24 Hours (Table) 06/28/24 06/28/24 Range/Units 05:36 05:36 WBC 19.23 H (4.50-10.00) 10*3/uL MCV 101.4 H (80.0-97.0) fL MCHC 31.2 L (32.0-37.0) g/dL MPV 12.9 H (9.5-12.2) fL Immature Gran # 0.86 H (0.00-0.04) 10*3/uL Neutrophils # 14.09 H (1.80-7.70) 10*3/uL Monocytes # 1.95 H (0.20-1.00) 10*3/uL Eosinophils # 0.03 L (0.04-0.35) 10*3/uL Basophils # 0.13 H (0.00-0.10) 10*3/uL Carbon Dioxide 37 H (22-30) mmol/L BUN 44 H (7-17) mg/dL Glucose 71 L (74-99) mg/dL
--- NOTE | 2024-06-29 12:48 | P.PN ---
Subjective Progress Note Date: 06/29/24 This is a very pleasant 63-year-old female, known history of severe COPD, her FEV1 is 60% of the predicted, also known to have history of obstructive sleep apnea, normally on CPAP at a pressure of 12 cm of water. She had previous history of renal cell carcinoma undergone previous right nephrectomy followed by targeted therapy. History of GERD, history of multiple admissions with COPD exacerbation in the past. She was just discharged September 15, 2023 for a COPD exacerbation including both hypoxic and hypercapnic respiratory failure requiring BiPAP support. The patient presented to the emergency department with worsening shortness of breath. She stated that her oxygen levels were dropping even on 3 and half liters of oxygen by nasal cannula. She was also utilizing an albuterol rescue inhaler. Based on that, she decided to come in to the emergency department. She denies having any chest pain. No hemoptysis. No pleurisy. Some mucus production. No chest pain. No nausea or emesis. No swe lling lower extremities. The white cell count of 14.7 with a hemoglobin 14.8 and a platelet count of 225. Normal coagulation profile. Sodium is at 140, BUN 21 with a creatinine 1.2. Serum bicarb is at 36. Viral 4 Plex has been negative. Troponins are negative. LFTs are normal and the procalcitonin level is at 0.03. I reviewed the chest x-ray from this current admission and it shows small amount of linear opacity in the left lower lung zone. This could be an area of atelectasis. For now, the patient on DuoNeb nebulized treatments [id number], she is on Perforomist and Pulmicort nebulized treatment twice a day. She is on IV Rocephin and she is also on IV Solu-Medrol 60 mg every 6 hours. She is on oxygen at 9 L with a pulse ox of 92%. Based on my records, the patient COPD is advanced. She has an FEV1 of 40% of predicted at baseline. Scan of the chest that was done on 12/24/2023 showed advanced COPD. Her previous described pneumonia in the lung bases improved and the patient continued to have some residual inflammatory changes in the lung bases and a stable 4 mm left upper lobe pulmonary nodule. The patient is a chronic smoker. She also has obstructive sleep apnea with an AHI of 16 maintained on CPAP therapy pressure of 12 cm of water. She has previous right nephrectomy for an underlying renal cell carcinoma. No clear evidence of any pulmonary metastasis at this point. She also suffers from chronic history kidney disease and chronic compression fracture of the lumbar spine with moderate to severe compression at the level of L1 and mild to moderate compr ession fraction at the level of L3 and L4. She has utilized lumbar braces in the past. She also has previous history of C. difficile colitis. On 06/18/2024, the patient is being seen for a follow-up. The patient was hospitalized for an acute on top of chronic hypoxic respiratory failure. She is currently on 7 L of oxygen by nasal cannula. She was hospitalized for an acute COPD exacerbation. She typically uses oxygen at 3 to 4 L/min nasal cannula on outpatient basis. She has an FEV1 of 40% of predicted. She has also history of renal cell carcinoma and she has undergone previous nephrectomy along with chronic stage III kidney disease. Her condition is stable. She remains on DuoNeb of chest. She remains on IV Solu-Medrol. She remains on budesonide nebulized treatments twice a day. Rest of medications are essentially unchanged and the patient is on empiric antibiotic coverage with IV Rocephin. White cell count of 15.6 with a hemoglobin 14.2 and a platelet count of 186. BUN is 23 with a creatinine 1 and the sodium is at 140. The viral screen was negative. No chest pain. No pleurisy. No hemoptysis. No altered mentation. The blood culture is showing preliminary gram-positive cocci in clusters, likely contaminant. No signs of any septicemia at this point in time. 06/19/2024, the patient is being seen for a follow-up. The patient is feeling better compared to yesterday. She has been weaned down to 60 to the maximal nasal cannula with a pulse ox of 94%. Her baseline is at 5 L. She remains on DuoNeb updrafts, Pulmicort Respules, IV Solu-Medrol 60 mg every 6 hours. She is also on empiric antibiotic coverage with IV Rocephin. No chest pain. No hemoptysis. Her white cell count of 21 with a hemoglobin of 14.2 and a platelet count of 230.. 27 with a creatinine of 1.04 and a sodium levels at 143 and a potassium level is at 4.6. No chest pain. No altered mentation. No hemodynamic instability. Blood culture was positive for gram-positive cocci and clusters, likely contaminant. Noted, the patient's procalcitonin level was only at 0.03. ID is on the case. On 06/20/2024, the patient is being seen for a follow-up. The patient is stable. She is still on 6 L of oxygen by nasal cannula. Pulse ox in the order of 95%. Slow but ongoing improvement. D-dimer is at 0.44. The white cell count is 15.2 with a hemoglobin of 12.4 and a platelet count of 180. Electrolytes are unchanged. BUN is 35 with a creatinine of 1.05. Medications remain unchanged. The patient has no new specific complaints. Remains on IV Solu-Medrol. Remains on DuoNeb nebulized treatments [id number]. On 06/21/2024, the patient is being seen for a follow-up. The patient remained in 60s of oxygen nasal cannula. Attempts were done to wean the FiO2 further yesterday. Nevertheless, the patient desaturated and based on that the patient was kept on oxygen at 6 L nasal cannula. Her current pulse ox is 91%. She is using the incentive spirometer. No chest pain. No significant cough or sputum production. The white cell count of 12.7 with a hemoglobin of 12.2 and a platelet count of 180. Sodium is at 139, potassium is at 4.7, serum bicarb is at 34 with a BUN of 40 and a creatinine of 1.02. LFTs are normal. Also, the patient underwent a CAT scan of the chest that showed a right basilar atelectatic change, chronic interstitial scarring involving the lingula and some bronchiectatic changes in the left lower lobe. Mild aneurysmal dilatation of the ascending aorta and cholelithiasis and another 3.4 cm left adrenal adenoma. There was another enlarged lymph node in the para-aortic region measuring 4.4 x 3.2 cm in size and a biliary stent was noted. Compression fractions involving the thoracic and lumbar spine moderate to severe in nature. The blood culture was positive for Staph hominis 1 out of 2. ID is on the case. The patient was kept on IV Rocephin. 06/22/2024, the patient is being seen for a follow-up. The patient is currently down to 5 L of oxygen by nasal cannula. Continues to have congestion cough and chest tightness and wheeze although this is gradually improving. Remains on bronchodilators and steroids. She is on DuoNeb of chest. She is on IV Rocephin. She is on IV Solu-Medrol 60 mg every 6 hours. She remains on Lovenox for DVT prophylaxis. The white cell count of 12 with a hemoglobin of 12 and a platelet count of 180. Sodium is at 139, bicarb is at 34, BUN is 40 with a creatinine of 1.02. Blood culture was positive for Staph hominis. 06/23/2024, the patient is being seen for a follow-up. Resting comfortably in bed on 5.5 L of oxygen by nasal cannula. Remains on bronchodilators and steroids. No significant events overnight. White cell count has dropped down to 12.7 with a hemoglobin 12.2 and a platelet count of 180. BUN is 40 with a creatinine of 1.02 and K level is at 4.7. Resting comfortably in bed. Tolerating her diet with no nausea or vomiting. The patient is seen today June 24, 2024 in follow-up on the selective care unit. She is sitting up at the bedside. Awake and alert in no acute distress. Still struggling with some shortness of breath on exertion. She is maintaining O2 saturations in the 90s on 5 L/min per nasal cannula. She is alternating with BiPAP 10/5 and 40% FiO2. Chest x-ray shows persistent bibasilar infiltrates and/or atelectasis. Blood cultures were positive for Staph hominis SS Chelsie bio septicus. She is currently on ceftriaxone. White count 14.1. Hemoglobin 14.0. Platelets 184. Sodium 138. Potassium 4.7. Bicarb 37. BUN 44. Creatinine 1.02. Glucose 103. Procalcitonin was negative at 0.04. She is continued on DuoNeb inhalations, Pulmicort and performance inhalations, Solu-Medrol. Lovenox for DVT prophylaxis. Protonix for GI prophylaxis. The patient is seen today June 25, 2024 in follow-up on the selective care unit. She is resting in bed. Awake and alert in no acute distress. Maintaining O2 saturation in the low 90s on 5 L/min per nasal cannula. Afebrile. She does have continued dyspnea with minimal exertion, dyspnea with conversation. She is continued on DuoNeb inhalations, Pulmicort and Perforomist inhalations, IV Solu- Medrol. Lovenox for DVT prophylaxis. Repeat blood culture revealed no growth. Procalcitonin negative at 0.04 The patient is seen today June 26, 2024 in follow-up on the selective care unit. She is currently sitting up in a chair at the bedside. Awake and alert in no acute distress. She continues to have a loose congested cough. Maintaining O2 saturations in the 90s on 5 L/min per nasal cannula. She has been afebrile. Chest x-ray shows persistent bibasilar acute infiltrates and/or atelectasis. Follow-up blood culture revealed no growth. Sodium 138. Potassium 4.6. Bicarb 38. BUN 40. Creatinine 0.89. Glucose 102. Procalcitonin was negative at 0.04. She does remain on DuoNeb inhalations, Pulmicort and Perforomist inhalations, IV Solu-Medrol. She was given Lasix 20 mg IVP x 1 today. No accurate intake and output recorded. The patient is seen today June 27, 2024 in follow-up on the selective care unit. She is currently sitting up in bed. Awake and alert in no acute distress. She denies any worsening shortness of breath, cough or congestion. She is maintaining good O2 saturations in the 90s on 4 L/min per nasal cannula. She is afebrile. Hemodynamically stable. She is continued on DuoNeb inhalations, Pulmicort and Perforomist inhalations, Solu-Medrol. Lovenox for DV T prophylaxis. The patient is seen today June 29, 2024 in follow-up on the regular medical floor. She was transferred off the selective care unit yesterday. She is currently sitting up in bed. Awake and alert in no acute distress. Maintaining O2 saturations in the 90s on 4 L/min per nasal cannula. She has been afebrile. Hemodynamically stable. Follow-up blood culture revealed no growth. White count 19.0. Hemoglobin 13.5. Platelets 141. C-reactive protein less than 0.5. She is continued on DuoNeb inhalations, Pulmicort and Perforomist inhalations, prednisone taper. Lovenox for DVT prophylaxis. Objective - Vital Signs Vital signs: Vital Signs Temp 97.6 F 06/29/24 07:15 Pulse 84 06/29/24 12:15 Resp 19 06/29/24 07:15 BP 139/90 06/29/24 11:51 Pulse Ox 91 L 06/29/24 11:51 FiO2 40 06/29/24 03:13 Intake & Output 06/28/24 06/29/24 06/29/24 18:59 06:59 18:59 Intake Total 1378 Output Total 1999 Balance -622 Weight 73.5 kg Intake: Oral 1378 Output: Urine 1999 Other: Voiding Method Bedside Commode Bedside Commode External Catheter External Catheter # Voids 1 1 # Bowel Movements 1 - Exam GENERAL EXAM: Alert, 63-year-old female, sitting up in bed, on 4 L nasal cannula, in no apparent distress. HEAD: Normocephalic. EYES: Normal reaction of pupils, equal size. NOSE: Clear with pink turbinates. THROAT: No erythema or exudates. NECK: No masses, no JVD. CHEST: No chest wall deformity. LUNGS: Equal air entry with bilateral scattered rhonchi, wheeze, diminished. CVS: S1 and S2 normal with no audible murmur, regular rhythm. ABDOMEN: No hepatosplenomegaly, normal bowel sounds, no guarding or rigidity. SPINE: No scoliosis or deformity SKIN: No rashes CENTRAL NERVOUS SYSTEM: No focal deficits, tone is normal in all 4 extremities. EXTREMITIES: There is no peripheral edema. No clubbing, no cyanosis. Peripheral pulses are intact. - Labs CBC & Chem 7: 06/29/24 04:15 06/28/24 05:36 Labs: Abnormal Lab Results - Last 24 Hours (Table) 06/29/24 Range/Units 04:15 WBC 19.06 H (4.50-10.00) 10*3/uL MCV 99.5 H (80.0-97.0) fL MCHC 30.8 L (32.0-37.0) g/dL MPV 13.0 H (9.5-12.2) fL Immature Gran # 0.85 H (0.00-0.04) 10*3/uL Neutrophils # 13.15 H (1.80-7.70) 10*3/uL Monocytes # 1.65 H (0.20-1.00) 10*3/uL Basophils # 0.13 H (0.00-0.10) 10*3/uL Assessment and Plan Assessment: Acute on chronic hypoxic respiratory failure seconda secondary to COPD exacerbation and she has been weaned down to 4 L of oxygen by nasal cannula. Offered bronchoscopy with BAL however the patient declines Acute COPD exacerbation, no clear indication for underlying pneumonia. Procalcitonin negative at 0.04. CAT scan of the chest showed some bronchiectatic changes in left lung base, some chronic anterior scarring in the lingular region and right basilar scar. No acute abnormalities. Acute on chronic hypoxic respiratory failure on 4 L of oxygen by nasal cannula, typically utilizes 3 to 4 L at home. Gram-positive cocci in the blood, likely contaminant. Staph hominis in the blood. Awaiting final cultures. Follow-up cultures revealed no growth. Completed Rocephin Severe COPD FEV1 of 40%, maintained on budesonide and Duoneb nebs. (unable to do Trelegy) Obstructive sleep apnea syndrome with apnea-hypopnea index of 16, on CPAP with pressure of 12 History of pulmonary nodule, being followed on outpatient basis, 14 x 8 mm subpleural nodule in the superior segment of the left lower lobe History of renal cell carcinoma previous nephrectomy History of L1 compression fracture and chronic back pain in addition to compression fracture of the L3-L4 Hypothyroidism Cholelithiasis Adrenal adenoma Periaortic lymph node measuring 4 x 3 cm in size Plan: The patient was seen and evaluated Medications and labs reviewed Stable on 4 L nasal cannula Cleared for discharge by pulmonary Complete a prednisone taper Continue her home Pulmicort inhalations Continue her home DuoNebs, albuterol HFA Continue her home oxygen/CPAP Plan is for home with [facility] Follow-up in our office in 1 week I have personally seen and examined the patient, performed the documentation and the assessment and plan as written. Number of minutes spent on the visit: 10 Dictation was produced using [employer] dictation software. Please excuse any grammatical, word or spelling errors.
[2024-06-29 13:41] VITALS: BP 129/82; PULSE 94; TEMP 98.1
--- NOTE | 2024-07-01 12:29 | P.PN ---
Subjective Progress Note Date: 06/29/24 Principal diagnosis: Reason for follow-up is positive blood culture Patient is a 63-year-old female with a past medical history significant for hypertension reflux COPD and asthma presenting to the hospital for evaluation of increasing shortness of breath diagnosed with COPD exacerbation with tracheobronchitis blood cultures were positive prompting this consultation. On today's evaluation that is 06/29/2024, patient did not have any fever and denies any chills, patient is breathing slightly comfortably still requiring 5 L nasal oxygen, patient with no chest pain or any worsening cough patient did not have any abdominal pain nausea vomiting or any loose stools. Patient white count is 19.06 CRP is less than 0.5 Objective - Vital Signs Vital signs: Vital Signs Temp 97.6 F 06/29/24 07:15 Pulse 84 06/29/24 12:15 Resp 19 06/29/24 07:15 BP 139/90 06/29/24 11:51 Pulse Ox 91 L 06/29/24 11:51 FiO2 40 06/29/24 03:13 Intake & Output 06/28/24 06/29/24 06/29/24 18:59 06:59 18:59 Intake Total 1378 Output Total 1999 Balance -622 Weight 73.5 kg Intake: Oral 1378 Output: Urine 1999 Other: Voiding Method Bedside Commode Bedside Commode External Catheter External Catheter # Voids 1 1 # Bowel Movements 1 - Exam GENERAL DESCRIPTION: Middle-age female lying in bed in no distress RESPIRATORY SYSTEM: Unlabored breathing , coarse breath sounds bilaterally HEART: S1 S2 regular rate and rhythm , ABDOMEN: Soft , no tenderness EXTREMITIES: No edema feet - Labs CBC & Chem 7: 06/29/24 04:15 06/28/24 05:36 Labs: Abnormal Lab Results - Last 24 Hours (Table) 06/29/24 Range/Units 04:15 WBC 19.06 H (4.50-10.00) 10*3/uL MCV 99.5 H (80.0-97.0) fL MCHC 30.8 L (32.0-37.0) g/dL MPV 13.0 H (9.5-12.2) fL Immature Gran # 0.85 H (0.00-0.04) 10*3/uL Neutrophils # 13.15 H (1.80-7.70) 10*3/uL Monocytes # 1.65 H (0.20-1.00) 10*3/uL Basophils # 0.13 H (0.00-0.10) 10*3/uL Assessment and Plan (1) Bacteremia Status: Acute Code(s): R78.81 - BACTEREMIA SNOMED Code(s): 9555943 (2) COPD exacerbation Status: Acute Code(s): J44.1 - CHRONIC OBSTRUCTIVE PULMONARY DISEASE W (ACUTE) EXACERBATION SNOMED Code(s): 682909548 (3) Allergy to multiple antibiotics Status: Acute Code(s): Z88.1 - ALLERGY STATUS TO OTHER ANTIBIOTIC AGENTS SNOMED Code(s): 728494704 (4) Leukocytosis Status: Acute Code(s): D72.829 - ELEVATED WHITE BLOOD CELL COUNT, UNSPECIFIED SNOMED Code(s): 992309654 (5) Pneumonia Status: Acute Code(s): J18.9 - PNEUMONIA, UNSPECIFIED ORGANISM SNOMED Code(s): 447107438 Plan: 1patient with a positive blood culture with Staphylococcus patient is likely staph epi and more likely skin contamination as the patient has no clinical dise ase to go along with it. 2patient with multiple antibiotic ALLERGIES that would limit the number of antibiotic safe to use. 3patient did have persistent finding on the chest x-ray however the patient did not have any fever did have normal CRP and procalcitonin that would go against pneumonia and has already completed course of Rocephin 4leukocytosis more likely steroid related, l chest x-ray was negative for any pneumonia and have a normal CRP possible component of thrush continue with nystatin swish and swallow for a week on discharge Dictation was produced using [employer] dictation software. please excuse any grammatical, word or spelling errors. Time with Patient: Less than 30
--- NOTE | 2024-07-01 22:50 | P.DS ---
Providers Date of admission: 06/17/24 06:21 Attending physician: Coty Saenz MD Consults: 06/17/24 06:19 Consult Physician Routine Consulting Provider: Parish Soni Consult Reason/Comments: COPD Do you want consulting provider notified?: Yes, Notify in am 06/18/24 15:52 Consult Physician Routine Consulting Provider: Ramya Schuler Consult Reason/Comments: copd, bacteremia Do you want consulting provider notified?: Yes Primary care physician: Stated None Hospital Course: Final Diagnosis Chronic obstructive pulmonary disease acute exacerbation with acute purulent tracheobronchitis with acute on chronic hypoxic respiratory failure, initially requiring BiPAP, currently on 5 L nasal cannula Right lower lobe opacity with air bronchogram and chronic atelectasis Initial blood culture positive, likely contaminant, repeats are negative Interstitial scarring on the CT scan GERD Hyperlipidemia Liver disease Sleep apnea with a CPAP History of irritable bowel syndrome with colitis Anxiety/bipolar/depression Former smoker Obesity with a BMI of 30.0 History of right nephrectomy in 2022 Discharge Disposition Patient is stable for discharge home with overall guarded prognosis secondary to her chronic hypoxia. She is continued on 5 L of oxygen via nasal cannula which she currently wears at home. Patient will discharge on a course of oral prednisone. She will also continue on a course of oral nystatin swish and swallow. Patient has a follow-up with Dr. Cobb in 1 week. She can follow-up with her primary care provider Dr. Gan 1 to 2 days. Hospital Course This is a 63-year-old female who was recently admitted with increasing shortness of breath with COPD exacerbation and initial significantly high oxygen requirements including BiPAP. Patient had a chest CT which reveals right lower lobe opacity with air bronchograms likely chronic atelectasis with interstitial scarring in the lingula and left lower lobe with bronchiectasis. Mild aneurysmal dilation of the ascending thoracic aorta and dilatation of the main pulmonary artery possibly indicating pulmonary hypertension. There is cholelithiasis. A 3.4 cm left adrenal mass possibly adenoma. 4.4 x 3.2 cm periaortic enlarged lymph node in the over 7 biliary stent. Multiple mild to moderate severe compression fractures in the thoracic and upper lumbar spine. Patient maintained on 6 L via nasal cannula currently and working on weaning as tolerated. Patient chronically uses oxygen outpatient. Patient has had prolonged hospitalization and slow improvements with minimal improvement. Patient reports to feeling increasing shortness of breath with congestion and cough and extremely dyspneic on exertion. Patient has required BiPAP. Per pulmonary documentation, bronchoscopy was recommended and patient refused. Patient is afebrile denies any chest pain or palpitations. Patient continues to report cough but slightly improved. Patient is ambulating and plans on returning home on discharge. Encouraged incentive spirometer use and increased activity as tolerated. Patient was weaned down to 5 L of oxygen via nasal cannula. Which she currently utilizes at home. The most recent blood work reveals a white blood cell count of 19.06, sodium level of 142, potassium 4.0, BUN of 44, creatinine of 0.86. Is noted the patient has been maintained on high-dose IV steroids his hospital stay contributing to her leukocytosis. She is currently not reporting any more significant shortness of breath and she is at baseline. She is not having any cough. She was cleared by pulmonology for discharge home and she would like to return home today. Please see medication reconciliation for a list of current medications. Thank you for allowing us to participate in the care of this patient. The impression and plan of care has been dictated by Marika Louis, Nurse Practitioner as directed. Dr. Zeyad MD I have performed a history and physical examination and medical decision making of this patient, discussed the same with the dictator, and agree with the dictators assessment and plan as written, documented as a scribe. Based on total visit time, I have performed more than 50% of this visit. Patient Condition at Discharge: Fair Plan - Discharge Summary Discharge Rx Participant: Yes New Discharge Prescriptions: New Nystatin 100,000 Unit/ml Susp [Mycostatin Oral Susp] 500,000 unit PO QID #140 ml predniSONE 0 mg PO DIRECTED 7 Days #14 tab Continue Ziprasidone [Geodon] 40 mg PO DAILY@0500 Albuterol Inhaler [Ventolin Hfa Inhaler] 2 puff INHALATION RT-Q6H PRN PRN Reason: Shortness Of Breath buPROPion HCL [Wellbutrin SR] 200 mg PO BID@0500,1700 Ziprasidone [Geodon] 60 mg PO HS@1700 Levothyroxine Sodium [Synthroid] 112 mcg PO DAILY@0500 Pantoprazole [Protonix] 40 mg PO DAILY@0500 HYDROcodone/APAP 7.5-325MG [Anna 7.5-325] 1 tab PO Q8H PRN PRN Reason: Pain cloNIDine HCL [Catapres] 0.1 mg PO TID@0500,1100,1700 ALPRAZolam [Xanax] 0.5 mg PO DAILY PRN PRN Reason: Anxiety Atorvastatin Calcium [Lipitor] 40 mg PO HS@1700 Propranolol [Inderal] 20 mg PO BID@0500,1700 Ipratropium-Albuterol Nebulize [Duoneb 0.5 mg-3 mg/3 ml Soln] 3 ml INHALATION RT-QID PRN PRN Reason: Shortness Of Breath Magnesium Oxide [Mag-Ox] 400 mg PO DAILY@0500 hydrALAZINE HCL [Apresoline] 10 mg PO TID@0500,1100,1700 Budesonide 0.5 mg INHALATION RT-BID@0500,1700 Multivitamins, Thera [Multivitamin (formulary)] 1 tab PO DAILY@0500 Discharge Medication List Ziprasidone [Geodon] 40 mg PO DAILY@0500 02/07/14 [History] Albuterol Inhaler [Ventolin Hfa Inhaler] 2 puff INHALATION RT-Q6H PRN 11/07/17 [History] Atorvastatin Calcium [Lipitor] 40 mg PO HS@17007/03/22 [History] Levothyroxine Sodium [Synthroid] 112 mcg PO DAILY@05007/03/22 [History] Ziprasidone [Geodon] 60 mg PO HS@17007/03/22 [History] buPROPion HCL [Wellbutrin SR] 200 mg PO BID@0500,1700 07/03/22 [History] Propranolol [Inderal] 20 mg PO BID@0500,1700 03/14/23 [History] HYDROcodone/APAP 7.5-325MG [Anna 7.5-325] 1 tab PO Q8H PRN 09/09/23 [History] Ipratropium-Albuterol Nebulize [Duoneb 0.5 mg-3 mg/3 ml Soln] 3 ml INHALATION RT-QID PRN 09/09/23 [History] Magnesium Oxide [Mag-Ox] 400 mg PO DAILY@0500 09/09/23 [History] Pantoprazole [Protonix] 40 mg PO DAILY@05009/09/23 [History] ALPRAZolam [Xanax] 0.5 mg PO DAILY PRN 04/17/24 [History] Budesonide 0.5 mg INHALATION RT-BID@0500,1700 04/17/24 [History] Multivitamins, Thera [Multivitamin (formulary)] 1 tab PO DAILY@0500 04/17/24 [History] cloNIDine HCL [Catapres] 0.1 mg PO TID@0500,1100,1700 04/17/24 [History] hydrALAZINE HCL [Apresoline] 10 mg PO TID@0500,1100,1700 04/17/24 [History] Nystatin 100,000 Unit/ml Susp [Mycostatin Oral Susp] 500,000 unit PO QID #140 ml 06/29/24 [Rx] predniSONE 0 mg PO DIRECTED 7 Days #14 tab 06/29/24 [Rx] Follow up Appointment(s)/Referral(s): [facility], [NON-STAFF] - 1 Week Rl Gan MD [REFERRING] - 1-2 Days None,Stated [Primary Care Provider] - 1-2 days Rosales Acosta MD [STAFF PHYSICIAN] - 1 Week Ambulatory/Diagnostic Orders: Basic Metabolic Panel [LAB.AMB] Location: None Selected Complete Blood Count w/diff [LAB.AMB] Time Frame: 3 Days, Location: None Selected Patient Instructions/Handouts: COPD (Chronic Obstructive Pulmonary Disease) (DC) Discharge Disposition: HOME WITH HOME HEALTH SERVICES
== END 2024-06-29 14:44 | disposition home health service (06) | DRG 190 ==
LOC: EC 03:18 → 3SCARD 06:21 → 4SSUR 06-29 01:07
PROVIDERS: ADMIT Internal Medicine; ATTEND Internal Medicine
DX: J44.1 Chronic obstructive pulmonary disease with (acute) exacerbation (principal); J96.21 Acute and chronic respiratory failure with hypoxia; J47.0 Bronchiectasis with acute lower respiratory infection; M48.56XA Collapsed vertebra, not elsewhere classified, lumbar region, initial encounter for fracture; Z99.81 Dependence on supplemental oxygen; N18.30 Chronic kidney disease, stage 3 unspecified; F31.9 Bipolar disorder, unspecified; E03.9 Hypothyroidism, unspecified; E66.9 Obesity, unspecified; I12.9 Hypertensive chronic kidney disease with stage 1 through stage 4 chronic kidney disease, or unspecified chronic kidney disease; I71.21 Aneurysm of the ascending aorta, without rupture; K76.9 Liver disease, unspecified; J98.11 Atelectasis; J44.0 Chronic obstructive pulmonary disease with (acute) lower respiratory infection; K21.9 Gastro-esophageal reflux disease without esophagitis; Z68.30 Body mass index [BMI] 30.0-30.9, adult; K58.9 Irritable bowel syndrome, unspecified; K80.20 Calculus of gallbladder without cholecystitis without obstruction; R91.1 Solitary pulmonary nodule; D35.02 Benign neoplasm of left adrenal gland; E78.5 Hyperlipidemia, unspecified; Z71.6 Tobacco abuse counseling; F17.210 Nicotine dependence, cigarettes, uncomplicated; F41.9 Anxiety disorder, unspecified; G47.33 Obstructive sleep apnea (adult) (pediatric); D72.829 Elevated white blood cell count, unspecified; G89.29 Other chronic pain; Z79.52 Long term (current) use of systemic steroids; Z53.29 Procedure and treatment not carried out because of patient's decision for other reasons; Z79.890 Hormone replacement therapy; Z79.899 Other long term (current) drug therapy; Z85.528 Personal history of other malignant neoplasm of kidney; Z86.19 Personal history of other infectious and parasitic diseases; Z88.1 Allergy status to other antibiotic agents; Z90.5 Acquired absence of kidney; Z88.6 Allergy status to analgesic agent; Z88.5 Allergy status to narcotic agent; Z88.0 Allergy status to penicillin; Z88.2 Allergy status to sulfonamides
CPT/HCPCS: 36415; 71045; 71250; 80048; 80053; 83735; 83880; 84145; 84484; 85025; 85379; 85610; 85652; 85730; 86140; 87040; 87077; 87186; 87636; 93005; 94640; 94660; 94760; 96365; 96366; 96367; 96372; 96375; 96376; 99291

== ENCOUNTER 2024-07-05 18:58 | Inpatient (IN) | payer MEDICARE, OTHER ==
--- NOTE | 2024-07-05 19:13 | ED ---
General Adult HPI - General Chief complaint: Shortness of Breath Stated complaint: SOB Time Seen by Provider: 07/05/24 19:00 Source: patient, EMS Mode of arrival: EMS Limitations: no limitations - History of Present Illness Initial comments: Dictation was produced using [employer] dictation software. please excuse any grammatical, word or spelling errors. Chief Complaint: 63-year-old female with history of cardiomyopathy presents emergency department for shortness of breath History of Present Illness: 63-year-old female states that here for shortness of breath brought in from home by EMS. Patient states that she has been at home for almost a week when she was admitted here for 12 days and then released. Patient states she was admitted with diuresis. She was sent home without any further diuresis. Per EMS patient was hypoxic on her usual 4 L nasal cannula. Patient reports cough. States that her lungs feel wet. The ROS documented in this emergency department record has been reviewed and confirmed by me. Those systems with pertinent positive or negative responses have been documented in the HPI. All other systems are other negative and/or noncontributory. - Related Data Home Medications Medication Instructions Recorded Confirmed Ziprasidone [Geodon] 40 mg PO DAILY@0500 02/07/14 07/05/24 Albuterol Inhaler [Ventolin Hfa 2 puff INHALATION RT-Q6H PRN 11/07/17 07/05/24 Inhaler] Atorvastatin Calcium [Lipitor] 40 mg PO HS@1700 07/03/22 07/05/24 Levothyroxine Sodium [Synthroid] 112 mcg PO DAILY@0500 07/03/22 07/05/24 Ziprasidone [Geodon] 60 mg PO HS@1700 07/03/22 07/05/24 buPROPion HCL [Wellbutrin SR] 200 mg PO BID@0500,1700 07/03/22 07/05/24 Propranolol [Inderal] 20 mg PO BID@0500,1700 03/14/23 07/05/24 HYDROcodone/APAP 7.5-325MG [[place] 1 tab PO Q8H PRN 09/09/23 07/05/24 7.5-325] Ipratropium-Albuterol Nebulize 3 ml INHALATION RT-QID PRN 09/09/23 07/05/24 [Duoneb 0.5 mg-3 mg/3 ml Soln] Magnesium Oxide [Mag-Ox] 400 mg PO DAILY@0500 09/09/23 07/05/24 Pantoprazole [Protonix] 40 mg PO DAILY@0500 09/09/23 07/05/24 ALPRAZolam [Xanax] 0.5 mg PO DAILY PRN 04/17/24 07/05/24 Budesonide 0.5 mg INHALATION RT-BID@0500,1700 04/17/24 07/05/24 Multivitamins, Thera [Multivitamin 1 tab PO DAILY@0500 04/17/24 07/05/24 (formulary)] cloNIDine HCL [Catapres] 0.1 mg PO TID@0500,1100,1700 04/17/24 07/05/24 hydrALAZINE HCL [Apresoline] 10 mg PO TID@0500,1100,1700 04/17/24 07/05/24 Nystatin 100,000 Unit/ml Susp 500,000 unit PO TID 07/05/24 07/05/24 [Mycostatin Oral Susp] Allergies Allergy/AdvReac Type Severity Reaction Status Date / Time codeine Allergy Rash/Hives Verified 07/05/24 19:45 doxycycline Allergy Rash/Hives Verified 07/05/24 19:45 Penicillins Allergy Rash/Hives Verified 07/05/24 19:45 on feet Sulfa (Sulfonamide Allergy Rash/Hives Verified 07/05/24 19:45 Antibiotics) ibuprofen [From Motrin] AdvReac Nausea & Verified 07/05/24 19:45 Vomiting Review of Systems ROS Statement: Those systems with pertinent positive or pertinent negative responses have been documented in the HPI. ROS Other: All systems not noted in ROS Statement are negative. Past Medical History Past Medical History: Asthma, COPD, GERD/Reflux, Hyperlipidemia, Liver Disease, Sleep Apnea/CPAP/BIPAP Additional Past Medical History / Comment(s): hx internal hemorrhoid, kidney CA with right nephrectomy, CPAP use, colitis, IBS History of Any Multi-Drug Resistant Organisms: None Reported Past Surgical History: Hysterectomy Additional Past Surgical History / Comment(s): right nephrectomy 04/11/22 Past Anesthesia/Blood Transfusion Reactions: No Reported Reaction Past Psychological History: Anxiety, Bipolar, Depression Smoking Status: Former smoker Past Alcohol Use History: None Reported Past Drug Use History: None Reported - Past Family History Father Family Medical History: COPD, Hyperlipidemia, Hypertension Mother Family Medical History: COPD, Hyperlipidemia, Hypertension General Exam - General Exam Comments Initial Comments: PHYSICAL EXAM: General Impression: Alert and oriented x3, dyspneic HEENT: Normocephalic atraumatic, extra-ocular movements intact, pupils equal and reactive to light bilaterally, mucous membranes moist. Cardiovascular: Heart regular rate and rhythm Chest: Diffuse end crackles and rhonchi Abdomen: abdomen soft, non-tender, non-distended, no organomegaly Musculoskeletal: Pulses present and equal in all extremities, no peripheral edema Motor: no focal deficits noted Neurological: CN II-XII grossly intact, no focal motor or sensory deficits noted Skin: Intact with no visualized rashes Psych: Normal affect and mood Limitations: no limitations Course Vital Signs 07/05/24 07/05/24 07/05/24 19:04 19:57 20:23 Temperature 97.7 F Pulse Rate 93 90 90 Respiratory 18 Rate Blood Pressure 112/68 O2 Sat by Pulse 93 L Oximetry 07/05/24 20:47 Temperature Pulse Rate 94 Respiratory 18 Rate Blood Pressure 102/65 O2 Sat by Pulse 93 L Oximetry - Reevaluation(s) Reevaluation #1: 07/05/24 19:20 Patient's EMR was reviewed. Discharge summary from June 29, 2024 was reviewed showing that patient was admitted to [facility] seen by pulmonology for COPD. Patient has no history of elevated BNP EKG Findings - EKG Comments: EKG Findings:: My EKG interpretation: Ventricular rate 90, sinus rhythm, MD 153, QRS 97, QTc 413. No MD prolongation, no QTC prolongation, no ST or T-wave changes noted. Overall, this EKG is unremarkable Medical Decision Making - Medical Decision Making Was pt. sent in by a medical professional or institution (, PA, TRUCK TRAILER FINAL INSPECTOR, urgent care, hospital, or detention...) When possible be specific @ -No Did you speak to anyone other than the patient for history (EMS, parent, family, police, friend...)? What history was obtained from this source @ -No Did you review nursing and triage notes (agree or disagree)? Why? @ -I reviewed and agree with nursing and triage notes Were old charts reviewed (outside hosp., previous admission, EMS record, old EKG, old radiological studies, urgent care reports/EKG's, detention records)? Report findings @ -No old charts were reviewed Differential Diagnosis (chest pain, altered mental status, abdominal pain women, abdominal pain men, vaginal bleeding, musculoskeletal, weakness, fever, dyspnea, syncope, headache, dizziness, GI bleed, back pain, seizure, CVA, palpatations, mental health)? @ -Differential Dyspnea: Coronary syndrome, arrhythmia, tamponade, asthma, COPD, pulmonary embolism, pneumonia, pneumothorax, pulmonary effusion, anaphylaxis, diabetic ketoacidosis, flailed chest, pulmonary contusion, diaphragmatic rupture, anemia, neuromuscular, this is not meant to be an all-inclusive list. EKG interpreted by me (3pts min.). @ -See above X-rays interpreted by me (1pt min.). @ -X-ray x-ray shows no pneumothorax. no Obvious infiltrate CT interpreted by me (1pt min.). @ -None done U/S interpreted by me (1pt. min.). @ -None done What testing was considered but not performed or refused? (CT, X-rays, U/S, labs)? Why? @ -None What meds were considered but not given or refused? Why? @ -None Was smoking cessation discussed for >3mins.? @ -No Were there social determinants of health that impacted care today? How? (Homelessness, low income, unemployed, alcoholism, drug addiction, transportation, low edu. Level, literacy, decrease access to med. care, longterm, rehab)? @ -No Was there de-escalation of care discussed even if they declined (Discuss DNR or withdrawal of care, Hospice)? DNR status @ -No What co-morbidities impacted this encounter? (DM, HTN, Smoking, COPD, CAD, Cancer, CVA, ARF, Chemo, Hep., AIDS, mental health diagnosis, sleep apnea, morbid obesity)? @ -COPD Was patient admitted / discharged? Hospital course, mention meds given and route, prescriptions, significant lab abnormalities, going to OR and other pertinent info. @ -63-year-old female chief complaint of dyspnea. She has extensive history of COPD and recent hospital admission for respiratory failure secondary to COPD exacerbation. Vital signs are stable. Labs within acceptable limits. No findings to support diagnosis of heart failure. Patient given breathing treatment steroids will be admitted with consultation pulmonology. Case discussed with hospitalist for admission Did you discuss the management of the patient with other professionals (professionals i.e. , PA, TRUCK TRAILER FINAL INSPECTOR, lab, RT, psych nurse, executive secretary social welfare, activities aide, teacher, catapult and arresting gear officer, vocational case manager)? Give summary @ -See above Was critical care preformed (if so, how long)? @ -No Undiagnosed new problem with uncertain prognosis? @ -No Drug Therapy requiring intensive monitoring for toxicity (Heparin, Nitro, Insul in, Cardizem)? @ -No Were any procedures done? @ -No Diagnosis/symptom? Acute, or Chronic, or Acute on Chronic? Uncomplicated (without systemic symptoms) or Complicated (systemic symptoms)? @ -COPD exacerbation Side effects of treatment? @ -No Exacerbation, Progression, or Severe Exacerbation? @ -No Poses a threat to life or bodily function? How? (Chest pain, [place], [place], pneumonia, PE, COPD, DKA, ARF, appy, cholecystitis, CVA, Diverticulitis, Homicidal, Suicidal, threat to staff... and all critical care pts) @ -yes - Lab Data Result diagrams: 07/05/24 19:10 07/05/24 19:10 Lab Results 07/05/24 07/05/24 07/05/24 Range/Units 19:10 19:10 19:10 WBC 12.39 H (4.50-10.00) 10*3/uL RBC 4.47 (4.10-5.20) 10*6/uL Hgb 13.8 (12.0-15.0) g/dL Hct 44.4 (37.2-46.3) % MCV 99.3 H (80.0-97.0) fL MCH 30.9 (27.0-32.0) pg MCHC 31.1 L (32.0-37.0) g/dL Plt Count 147 (140-440) 10*3/uL MPV 11.7 (9.5-12.2) fL Immature Gran % (Auto) 0.9 % Neutrophils % 74.1 % Lymphocytes % 16.0 % Monocytes % 6.5 % Eosinophils % 2.3 % Basophils % 0.2 % Immature Gran # 0.11 H (0.00-0.04) 10*3/uL Neutrophils # 9.17 H (1.80-7.70) 10*3/uL Lymphocytes # 1.98 (0.90-5.00) 10*3/uL Monocytes # 0.81 (0.20-1.00) 10*3/uL Eosinophils # 0.29 (0.04-0.35) 10*3/uL Basophils # 0.03 (0.00-0.10) 10*3/uL PT 10.3 (10.0-12.5) sec INR 0.9 (<1.2) APTT 21.3 L (22.0-30.0) sec Sodium 135 L (137-145) mmol/L Potassium 4.4 (3.5-5.1) mmol/L Chloride 98 (98-107) mmol/L Carbon Dioxide 35 H (22-30) mmol/L Anion Gap 2 mmol/L BUN 23 H (7-17) mg/dL Creatinine 0.90 (0.52-1.04) mg/dL Est GFR (CKD-EPI)AfAm 79 (>60 ml/min/1.73 sqM) Est GFR (CKD-EPI)NonAf 68 (>60 ml/min/1.73 sqM) Glucose 198 H (74-99) mg/dL Calcium 9.0 (8.4-10.2) mg/dL Total Bilirubin 1.1 (0.2-1.3) mg/dL AST 36 (14-36) U/L ALT 48 H (4-34) U/L Alkaline Phosphatase 91 (38-126) U/L Troponin I (0.000-0.034) ng/mL NT-Pro-B Natriuret Pep 308 pg/mL Total Protein 6.1 L (6.3-8.2) g/dL Albumin 3.4 L (3.5-5.0) g/dL 07/05/24 Range/Units 19:10 WBC (4.50-10.00) 10*3/uL RBC (4.10-5.20) 10*6/uL Hgb (12.0-15.0) g/dL Hct (37.2-46.3) % MCV (80.0-97.0) fL MCH (27.0-32.0) pg MCHC (32.0-37.0) g/dL Plt Count (140-440) 10*3/uL MPV (9.5-12.2) fL Immature Gran % (Auto) % Neutrophils % % Lymphocytes % % Monocytes % % Eosinophils % % Basophils % % Immature Gran # (0.00-0.04) 10*3/uL Neutrophils # (1.80-7.70) 10*3/uL Lymphocytes # (0.90-5.00) 10*3/uL Monocytes # (0.20-1.00) 10*3/uL Eosinophils # (0.04-0.35) 10*3/uL Basophils # (0.00-0.10) 10*3/uL PT (10.0-12.5) sec INR (<1.2) APTT (22.0-30.0) sec Sodium (137-145) mmol/L Potassium (3.5-5.1) mmol/L Chloride (98-107) mmol/L Carbon Dioxide (22-30) mmol/L Anion Gap mmol/L BUN (7-17) mg/dL Creatinine (0.52-1.04) mg/dL Est GFR (CKD-EPI)AfAm (>60 ml/min/1.73 sqM) Est GFR (CKD-EPI)NonAf (>60 ml/min/1.73 sqM) Glucose (74-99) mg/dL Calcium (8.4-10.2) mg/dL Total Bilirubin (0.2-1.3) mg/dL AST (14-36) U/L ALT (4-34) U/L Alkaline Phosphatase (38-126) U/L Troponin I 0.027 (0.000-0.034) ng/mL NT-Pro-B Natriuret Pep pg/mL Total Protein (6.3-8.2) g/dL Albumin (3.5-5.0) g/dL Disposition Clinical Impression: COPD exacerbation Disposition: ADMITTED IP TO THIS HOSP Condition: Fair Referrals: None,Stated [REFERRING] - 1-2 days Decision Time: 20:49
[2024-07-05 19:24] LABS: Basophils # (A) 0.03 10*3/uL (0.00-0.10); Basophils % (A) 0.2 %; Eosinophils # (A) 0.29 10*3/uL (0.04-0.35); Eosinophils % (A) 2.3 %; HCT 44.4 % (37.2-46.3); HGB 13.8 g/dL (12.0-15.0); Lymphocytes # (A) 1.98 10*3/uL (0.90-5.00); MCH 30.9 pg (27.0-32.0); MCHC 31.1 g/dL (32.0-37.0); MCV 99.3 fL (80.0-97.0); Mean Platelet Volume 11.7 fL (9.5-12.2); Monocytes # (A) 0.81 10*3/uL (0.20-1.00); Monocytes % (A) 6.5 %; Neutrophils # (A) 9.17 10*3/uL (1.80-7.70); Neutrophils % (A) 74.1 %; Platelet Count 147 10*3/uL (140-440); RBC 4.47 10*6/uL (4.10-5.20); RDW 13.9 % (11.5-14.5); WBC 12.39 10*3/uL (4.50-10.00)
[2024-07-05 19:31] LABS: ALT 48 U/L (4-34); African American GFR (CKD) 79 (>60 ml/min/1.73 sqM); Albumin 3.4 g/dL (3.5-5.0); Anion Gap 2 mmol/L; Blood Urea Nitrogen 23 mg/dL (7-17); Carbon Dioxide 35 mmol/L (22-30); Chloride 98 mmol/L (98-107); Glucose 198 mg/dL (74-99); Non-African American GFR(CKD) 68 (>60 ml/min/1.73 sqM); Sodium 135 mmol/L (137-145); Total Bilirubin 1.1 mg/dL (0.2-1.3); Total Protein 6.1 g/dL (6.3-8.2)
[2024-07-05 19:37] LABS: AST 36 U/L (14-36); Alkaline Phosphatase 91 U/L (38-126); Potassium 4.4 mmol/L (3.5-5.1)
[2024-07-05 19:38] LABS: INR 0.9 (<1.2); NT-Pro-B-Type Natriuretic Pept 308 pg/mL; Partial Thromboplastin Time 21.3 sec (22.0-30.0); Prothrombin Time 10.3 sec (10.0-12.5)
[2024-07-05] MEDS: DEXAMETHASONE SOD PHOSPHATE 10 MG/ML 1 ML VIAL IV STA (19:38)
[2024-07-05] MEDS: FUROSEMIDE 10 MG/ML 4 ML VIAL IV STA (19:40)
[2024-07-05] MEDS: AZITHROMYCIN 500 MG in SODIUM CHLORIDE 0.9% 250 ML IVPB STA (19:42)
[2024-07-05] MEDS: IPRATROPIUM 0.5 MG/2.5 ML NEBU INHALATION STA (19:56)
[2024-07-05] MEDS: ALBUTEROL NEBULIZED 2.5 MG/3 ML INHALATION STA (19:56)
[2024-07-05] MEDS ORDERED: NALOXONE 0.4 MG/ML 1 ML VIAL IVP PRN (20:36)
--- NOTE | 2024-07-05 20:48 | XR ---
EXAMINATION TYPE: XR chest 2V DATE OF EXAM: 07/05/2024 7:36 PM COMPARISON: Chest radiographs from 06/28/2024. CLINICAL INDICATION: Female, 63 years old with history of dyspnea; [facility] TECHNIQUE: XR chest 2V Frontal and lateral views of the chest. FINDINGS: Lungs/Pleura: 5 streaky atelectasis in the left lung base. 2 but There is no evidence of pleural effu franck, focal consolidation, or pneumothorax. Pulmonary vascularity: Unremarkable. Heart/mediastinum: Cardiomediastinal silhouette is unremarkable. Musculoskeletal: No acute osseous pathology. IMPRESSION: 1. No acute cardiopulmonary disease/process. 2. Left basilar atelectasis. [facility], , 07/05/2024 8:46 PM
[2024-07-05] MEDS ORDERED: ALBUTEROL NEBULIZED 2.5 MG/3 ML INHALATION PRN (22:49)
[2024-07-05] MEDS ORDERED: ACETAMINOPHEN TAB 325 MG TAB PO PRN (22:50)
[2024-07-06] MEDS: HYDROcodone/APAP 7.5-325MG 1 EACH TAB PO PRN (00:34)
[2024-07-06] MEDS: PANTOPRAZOLE 40 MG TABLET PO SCH (06:12)
[2024-07-06] MEDS: LEVOTHYROXINE 112 MCG TAB PO SCH (06:12)
[2024-07-06] MEDS ORDERED: cefTRIAXone 2 GM in DEXTROSE 5% IN WATER 50 ML IVPB SCH (09:00)
[2024-07-06] MEDS: ZIPRASIDONE 40 MG CAP PO SCH (09:03)
[2024-07-06] MEDS: MULTIVITAMINS, THERA 1 EACH TAB PO SCH (09:03)
[2024-07-06] MEDS: MAGNESIUM OXIDE 400 MG TAB PO SCH (09:03)
[2024-07-06] MEDS: HEPARIN SODIUM,PORCINE 5,000 UNIT/ML 1 ML VIAL SQ SCH (09:03)
[2024-07-06] MEDS: buPROPion SR 100 MG TABLET.ER PO SCH (09:03)
[2024-07-06] MEDS: PROPRANOLOL 20 MG TAB PO SCH (09:03)
[2024-07-06] MEDS: predniSONE 20 MG TAB PO SCH (09:13)
[2024-07-06] MEDS: IPRATROPIUM-ALBUTEROL 3 ML NEB INHALATION SCH (09:17)
[2024-07-06] MEDS: SYMBICORT 160-4.5 MCG INHALER INHALATION SCH (09:17)
[2024-07-06] MEDS: BUDESONIDE 0.5 MG/2 ML NEBU INHALATION SCH (09:25)
[2024-07-06] MEDS ORDERED: guaiFENesin SYRUP 100MG/5ML 200 MG/10 ML CUP PO PRN (09:27)
[2024-07-06] MEDS ORDERED: DOXYCYCLINE 100 MG TABLET PO SCH (09:45)
--- NOTE | 2024-07-06 11:09 | P.CNPUL ---
History of Present Illness Consult date: 07/06/24 Requesting physician: Luis Kelsey Reason for consult: COPD Chief complaint: Shortness of breath History of present illness: This is a pleasant 63-year-old female, known history of severe COPD, her FEV1 is 40% of the predicted, also known to have history of obstructive sleep apnea, normally on CPAP at a pressure of 12 cm of water. She had previous history of renal cell carcinoma undergone previous right nephrectomy followed by targeted therapy. History of GERD. History of multiple admissions with COPD exacerbation in the past. She was just discharged June 29, 2024 for a COPD exacerbation including both hypoxic and hypercapnic respiratory failure. She presented back to the emergency room on 07/05/2024 with complaints of increasing shortness of breath. She felt as though her oxygen tubing may be had a hole in it and was hoping someone could come in to repair it. She was also told she has fluid in her lungs and to go to the emergency department. Chest x-ray shows no acute cardiopulmonary process. Some minimal left basilar atelectasis. White count 12.3. Hemoglobin 13.8. Platelets 147. Sodium 135. Potassium 4.4. Bicarb 35. BUN 23. Creatinine 0.90. Glucose 198. Procalcitonin negative at 0.05. She is seen today in consultation on the regular medical floor. She is currently sitting up in bed. Awake and alert in no acute distress. Maintaining O2 saturations in the 90s on 4 L/min per nasal cannula. She has been afebrile. Hemodynamically stable. Review of Systems REVIEW OF SYSTEMS: CONSTITUTIONAL: Denies any recent significant weight loss or weight gain. EYES: Denies change in vision. EARS, NOSE, MOUTH, THROAT: Denies headaches, denies sore throat. CARDIOVASCULAR: Denies chest pain, palpitations or syncopal episodes. RESPIRATORY: Positive for shortness of breath, no cough, congestion or hemoptysis. GASTROINTESTINAL: Denies change in appetite, denies abdominal pain GENITOURINARY: Denies hematuria, denies infections. MUSKULOSKELETAL: Denies pain, denies swelling. INTEGUMENTARY: Denies rash, denies eczema. NEUROLOGICAL: Denies recent memory loss, no recent seizure activity. PSYCHIATRIC: Denies anxiety, denies depression. HEMATOLOGIC/LYMPHATIC: Denies anemia, denies enlarged lymph nodes. Past Medical History Past Medical History: Asthma, COPD, GERD/Reflux, Hyperlipidemia, Liver Disease, Sleep Apnea/CPAP/BIPAP Additional Past Medical History / Comment(s): hx internal hemorrhoid, kidney CA with right nephrectomy, CPAP use, colitis, IBS History of Any Multi-Drug Resistant Organisms: None Reported Past Surgical History: Hysterectomy Additional Past Surgical History / Comment(s): right nephrectomy 04/11/22 Past Anesthesia/Blood Transfusion Reactions: No Reported Reaction Past Psychological History: Anxiety, Bipolar, Depression Smoking Status: Former smoker Past Alcohol Use History: None Reported Past Drug Use History: None Reported - Past Family History Father Family Medical History: COPD, Hyperlipidemia, Hypertension Mother Family Medical History: COPD, Hyperlipidemia, Hypertension Medications and Allergies Home Medications Medication Instructions Recorded Confirmed Type Ziprasidone [Geodon] 40 mg PO DAILY@0500 02/07/14 07/05/24 History Albuterol Inhaler [Ventolin Hfa 2 puff INHALATION RT-Q6H PRN 11/07/17 07/05/24 History Inhaler] Atorvastatin Calcium [Lipitor] 40 mg PO HS@1700 07/03/22 07/05/24 History Levothyroxine Sodium [Synthroid] 112 mcg PO DAILY@0500 07/03/22 07/05/24 History Ziprasidone [Geodon] 60 mg PO HS@1700 07/03/22 07/05/24 History buPROPion HCL [Wellbutrin SR] 200 mg PO BID@0500,1700 07/03/22 07/05/24 History Propranolol [Inderal] 20 mg PO BID@0500,1700 03/14/23 07/05/24 History HYDROcodone/APAP 7.5-325MG [[place] 1 tab PO Q8H PRN 09/09/23 07/05/24 History 7.5-325] Ipratropium-Albuterol Nebulize 3 ml INHALATION RT-QID PRN 09/09/23 07/05/24 History [Duoneb 0.5 mg-3 mg/3 ml Soln] Magnesium Oxide [Mag-Ox] 400 mg PO DAILY@0500 09/09/23 07/05/24 History Pantoprazole [Protonix] 40 mg PO DAILY@0500 09/09/23 07/05/24 History ALPRAZolam [Xanax] 0.5 mg PO DAILY PRN 04/17/24 07/05/24 History Budesonide 0.5 mg INHALATION RT-BID@0500,1700 04/17/24 07/05/24 History Multivitamins, Thera [Multivitamin 1 tab PO DAILY@0500 04/17/24 07/05/24 History (formulary)] cloNIDine HCL [Catapres] 0.1 mg PO TID@0500,1100,1700 04/17/24 07/05/24 History hydrALAZINE HCL [Apresoline] 10 mg PO TID@0500,1100,1700 04/17/24 07/05/24 History Nystatin 100,000 Unit/ml Susp 500,000 unit PO TID 07/05/24 07/05/24 History [Mycostatin Oral Susp] Allergies Allergy/AdvReac Type Severity Reaction Status Date / Time codeine Allergy Rash/Hives Verified 07/05/24 19:45 doxycycline Allergy Rash/Hives Verified 07/05/24 19:45 Penicillins Allergy Rash/Hives Verified 07/05/24 19:45 on feet Sulfa (Sulfonamide Allergy Rash/Hives Verified 07/05/24 19:45 Antibiotics) ibuprofen [From Motrin] AdvReac Nausea & Verified 07/05/24 19:45 Vomiting Physical Exam Vitals: Vital Signs Temp Pulse Pulse Resp BP BP Pulse Ox 07/06/24 09:29 88 07/06/24 09:19 86 07/06/24 07:25 98.0 F 104 H 18 134/87 93 L 07/06/24 01:00 98.1 F 98 17 120/73 88 L 07/05/24 21:54 98.0 F 93 18 122/76 95 07/05/24 21:30 97.5 F L 85 18 110/70 93 L 07/05/24 20:47 94 18 102/65 93 L 07/05/24 20:23 90 07/05/24 19:57 90 07/05/24 19:04 97.7 F 93 18 112/68 93 L Intake and Output 07/05/24 07/06/24 07/06/24 22:59 06:59 14:59 Other: Voiding Method Bedside Commode # Voids 4 Weight 68.039 kg GENERAL EXAM: Alert, active, pleasant 63-year-old female, on 4 L nasal cannula, comfortable in no apparent distress. HEAD: Normocephalic. EYES: Normal reaction of pupils, equal size. NOSE: Clear with pink turbinates. THROAT: No erythema or exudates. NECK: No masses, no JVD. CHEST: No chest wall deformity. LUNGS: Equal air entry with faint end expiratory wheeze, diminished. CVS: S1 and S2 normal with no audible murmur, regular rhythm. ABDOMEN: No hepatosplenomegaly, normal bowel sounds, no guarding or rigidity. SPINE: No scoliosis or deformity SKIN: No rashes CENTRAL NERVOUS SYSTEM: No focal deficits, tone is normal in all 4 extremities. EXTREMITIES: There is no peripheral edema. No clubbing, no cyanosis. Peripheral pulses are intact. Results - Laboratory Findings CBC and BMP: 07/05/24 19:10 07/05/24 19:10 PT/INR, D-dimer PT 10.3 sec (10.0-12.5) 07/05/24 19:10 INR 0.9 (<1.2) 07/05/24 19:10 Abnormal lab findings: Abnormal Labs 07/05/24 07/05/24 07/05/24 19:10 19:10 19:10 WBC 12.39 H MCV 99.3 H MCHC 31.1 L Immature Gran # 0.11 H Neutrophils # 9.17 H APTT 21.3 L Sodium 135 L Carbon Dioxide 35 H BUN 23 H Glucose 198 H Plasma Lactic Acid Jimmy ALT 48 H Total Protein 6.1 L Albumin 3.4 L 07/06/24 07/06/24 07/06/24 01:32 04:17 07:38 WBC MCV MCHC Immature Gran # Neutrophils # APTT Sodium Carbon Dioxide BUN Glucose Plasma Lactic Acid Jimmy 2.1 H* 2.2 H* 3.0 H* ALT Total Protein Albumin - Diagnostic Findings Chest x-ray: image reviewed Assessment and Plan Assessment: Acute on chronic hypoxic hypoxic respiratory failure secondary to an acute exacerbation of COPD possibly related to failed oxygen system at home Acute COPD exacerbation, no clear indication for underlying pneumonia. Procalcitonin negative at 0.05 Chronic hypoxic respiratory failure, typically utilizes 3 to 4 L at home. Chronic kidney disease, stage III Severe COPD FEV1 of 40%, maintained on budesonide and Duonebs. (unable to do Trelegy) Obstructive sleep apnea syndrome with apnea-hypopnea index of 16, on CPAP with pressure of 12 History of pulmonary nodule, being followed on outpatient basis, 14 x 8 mm subpleural nodule in the superior segment of the left lower lobe History of renal cell carcinoma previous nephrectomy Chronic kidney disease, stage III, creatinine is at 1.24 History of L1 compression fracture and chronic back pain in addition to compression fracture of the L3-L4 Hypothyroidism Plan: The patient was seen and evaluated Chest x-ray, labs and medications reviewed Chest x-ray clear, procalcitonin negative Continue DuoNeb inhalations Continue Symbicort Continue prednisone taper Heparin for DVT prophylaxis Protonix for GI prophylaxis Will need home oxygen equipment checked prior to her discharge We will continue to follow and make further recommendations based on her clinical status I have personally seen and examined the patient, performed the documentation and the assessment and plan as written. Number of minutes spent on the visit: 20 Dictation was produced using [employer] dictation software. Please excuse any gram matical, word or spelling errors. Time with Patient: Greater than 30
--- NOTE | 2024-07-06 13:24 | P.HPIM ---
History of Present Illness H&P Date: 07/06/24 History of present illness; patient 63-year-old lady with past medical history significant for COPD, chronic respiratory failure on 4 L of oxygen who presents to the ER because of worsening shortness of breath. Patient was only recently discharged a week back after being admitted for COPD exacerbation. Patient stated that he she was all right yesterday when she started noticing that her breathing was getting worse. Patient was complaining of shortness of breath on rest as on exertion. There was no complaint of chest pain. Patient denied any fever or chills. There was no complaint of cough. Patient denied any swelling of feet. There was no complaint of orthopnea or PND. Because of the shortness of breath, patient came to the ER Initial lab work done in the ER showed WBC 12.39, hemoglobin 13.8, platelet count 147, sodium 135, potassium 4.4, BUN 23, creatinine 0.90, lactate 2.1 anne irubin 1.1, AST 36, ALT 48, alkaline phosphatase 91, proBNP 308, Pro-Aaron 0.05 EKG done in the ER showed heart rate of 90, no ST segment elevation or depression seen, no T-wave inversions seen. Chest x-ray done in the ER showed no acute cardiopulmonary process/disease Patient admitted to internal medicine service REVIEW OF SYSTEMS: CONSTITUTIONAL: No fever, no malaise, no fatigue. HEENT: No recent visual problems or hearing problems. Denied any sore throat. CARDIOVASCULAR:as mentioned above PULMONARY: As mentioned above GASTROINTESTINAL: No diarrhea, no nausea, no vomiting, no abdominal pain. NEUROLOGICAL: No headaches, no weakness, no numbness. HEMATOLOGICAL: Denies any bleeding or petechiae. GENITOURINARY: Denies any burning micturition, frequency, or urgency. MUSCULOSKELETAL/RHEUMATOLOGICAL: Denies any joint pain, swelling, or any muscle pain. ENDOCRINE: Denies any polyuria or polydipsia. The rest of the 14-point review of systems is negative. PHYSICAL EXAMINATION: GENERAL: The patient is alert and oriented x3, chronically ill looking HEENT: Pupils are round and equally reacting to light. EOMI. No scleral icterus. No conjunctival pallor. Normocephalic, atraumatic. No pharyngeal erythema. No thyromegaly. CARDIOVASCULAR: S1 and S2 present. No murmurs, rubs, or gallops. PULMONARY: coarse breath sound bilaterally, expiratory wheeze audible bilaterally ABDOMEN: Soft, nontender, nondistended, normoactive bowel sounds. No palpable organomegaly. MUSCULOSKELETAL: No joint swelling or deformity. EXTREMITIES: No cyanosis, clubbing, or pedal edema. NEUROLOGICAL: Gross neurological examination did not reveal any focal deficits. SKIN: No rashes. Assessment and plan Acute COPD exacerbation Acute on chronic hypoxic respiratory failure GERD Hyperlipidemia Liver disease Sleep apnea with a CPAP History of irritable bowel syndrome with colitis Anxiety/bipolar/depression Former smoker Obesity with a BMI of 30.0 History of right nephrectomy in 2022 Monitor vital signs Monitor CBC Monitor CMP Continue telemetry monitoring Continue oxygen supplementation Ordered use of I-S Ordered mucolytic's with Mucinex Ordered antitussives with Robitussin Ordered breathing treatments Ordered prednisone Resume home meds Consult pulmonology Labs and medication were reviewed.. Continue same treatment. Continue with symptomatic treatment. Resume home medication. Monitor labs and vitals. DVT and GI prophylaxis. Further recommendations as per clinical course of the patient Dictation was produced using [employer] dictation software. please excuse any grammatical, word or spelling errors. Past Medical History Past Medical History: Asthma, COPD, GERD/Reflux, Hyperlipidemia, Liver Disease, Sleep Apnea/CPAP/BIPAP Additional Past Medical History / Comment(s): hx internal hemorrhoid, kidney CA with right nephrectomy, CPAP use, colitis, IBS History of Any Multi-Drug Resistant Organisms: None Reported Past Surgical History: Hysterectomy Additional Past Surgical History / Comment(s): right nephrectomy 04/11/22 Past Anesthesia/Blood Transfusion Reactions: No Reported Reaction Past Psychological History: Anxiety, Bipolar, Depression Smoking Status: Former smoker Past Alcohol Use History: None Reported Past Drug Use History: None Reported - Past Family History Father Family Medical History: COPD, Hyperlipidemia, Hypertension Mother Family Medical History: COPD, Hyperlipidemia, Hypertension Medications and Allergies Home Medications Medication Instructions Recorded Confirmed Type Ziprasidone [Geodon] 40 mg PO DAILY@0500 02/07/14 07/05/24 History Albuterol Inhaler [Ventolin Hfa 2 puff INHALATION RT-Q6H PRN 11/07/17 07/05/24 History Inhaler] Atorvastatin Calcium [Lipitor] 40 mg PO HS@1700 07/03/22 07/05/24 History Levothyroxine Sodium [Synthroid] 112 mcg PO DAILY@0500 07/03/22 07/05/24 History Ziprasidone [Geodon] 60 mg PO HS@169907/03/22 07/05/24 History buPROPion HCL [Wellbutrin SR] 200 mg PO BID@0500,1700 07/03/22 07/05/24 History Propranolol [Inderal] 20 mg PO BID@0500,1700 03/14/23 07/05/24 History HYDROcodone/APAP 7.5-325MG [[place] 1 tab PO Q8H PRN 09/09/23 07/05/24 History 7.5-325] Ipratropium-Albuterol Nebulize 3 ml INHALATION RT-QID PRN 09/09/23 07/05/24 History [Duoneb 0.5 mg-3 mg/3 ml Soln] Magnesium Oxide [Mag-Ox] 400 mg PO DAILY@05009/09/23 07/05/24 History Pantoprazole [Protonix] 40 mg PO DAILY@05009/09/23 07/05/24 History ALPRAZolam [Xanax] 0.5 mg PO DAILY PRN 04/17/24 07/05/24 History Budesonide 0.5 mg INHALATION RT-BID@0500,17004/17/24 07/05/24 History Multivitamins, Thera [Multivitamin 1 tab PO DAILY@49904/17/24 07/05/24 History (formulary)] cloNIDine HCL [Catapres] 0.1 mg PO TID@0500,1100,1700 04/17/24 07/05/24 History hydrALAZINE HCL [Apresoline] 10 mg PO TID@0500,1100,1700 04/17/24 07/05/24 History Nystatin 100,000 Unit/ml Susp 500,000 unit PO TID 07/05/24 07/05/24 History [Mycostatin Oral Susp] Allergies Allergy/AdvReac Type Severity Reaction Status Date / Time codeine Allergy Rash/Hives Verified 07/05/24 19:45 doxycycline Allergy Rash/Hives Verified 07/05/24 19:45 Penicillins Allergy Rash/Hives Verified 07/05/24 19:45 on feet Sulfa (Sulfonamide Allergy Rash/Hives Verified 07/05/24 19:45 Antibiotics) ibuprofen [From Motrin] AdvReac Nausea & Verified 07/05/24 19:45 Vomiting Physical Exam Vitals: Vital Signs Temp Pulse Pulse Resp BP BP Pulse Ox 07/06/24 07:25 98.0 F 104 H 18 134/87 93 L 07/06/24 01:00 98.1 F 98 17 120/73 88 L 07/05/24 21:54 98.0 F 93 18 122/76 95 07/05/24 21:30 97.5 F L 85 18 110/70 93 L 07/05/24 20:47 94 18 102/65 93 L 07/05/24 20:23 90 07/05/24 19:57 90 07/05/24 19:04 97.7 F 93 18 112/68 93 L Intake and Output 07/05/24 07/06/24 07/06/24 22:59 06:59 14:59 Other: Voiding Method Bedside Commode # Voids 4 Weight 68.039 kg Results CBC & Chem 7: 07/05/24 19:10 07/05/24 19:10 Labs: Abnormal Lab Results - Last 24 Hours (Table) 07/05/24 07/05/24 07/05/24 Range/Units 19:10 19:10 19:10 WBC 12.39 H (4.50-10.00) 10*3/uL MCV 99.3 H (80.0-97.0) fL MCHC 31.1 L (32.0-37.0) g/dL Immature Gran # 0.11 H (0.00-0.04) 10*3/uL Neutrophils # 9.17 H (1.80-7.70) 10*3/uL APTT 21.3 L (22.0-30.0) sec Sodium 135 L (137-145) mmol/L Carbon Dioxide 35 H (22-30) mmol/L BUN 23 H (7-17) mg/dL Glucose 198 H (74-99) mg/dL Plasma Lactic Acid Jimmy (0.7-2.0) mmol/L ALT 48 H (4-34) U/L Total Protein 6.1 L (6.3-8.2) g/dL Albumin 3.4 L (3.5-5.0) g/dL 07/06/24 07/06/2425 Range/Units 01:32 04:17 07:38 WBC (4.50-10.00) 10*3/uL MCV (80.0-97.0) fL MCHC (32.0-37.0) g/dL Immature Gran # (0.00-0.04) 10*3/uL Neutrophils # (1.80-7.70) 10*3/uL APTT (22.0-30.0) sec Sodium (137-145) mmol/L Carbon Dioxide (22-30) mmol/L BUN (7-17) mg/dL Glucose (74-99) mg/dL Plasma Lactic Acid Jimmy 2.1 H* 2.2 H* 3.0 H* (0.7-2.0) mmol/L ALT (4-34) U/L Total Protein (6.3-8.2) g/dL Albumin (3.5-5.0) g/dL Thrombosis Risk Factor Assmnt - Choose All That Apply Any of the Below Risk Factors Present?: No Other Risk Factors: Yes Each Risk Factor Represents 2 Points: Age 61-74 years Thrombosis Risk Factor Assessment Total Risk Factor Score: 2 Thrombosis Risk Factor Assessment Level: Low Risk
[2024-07-06] MEDS: hydrALAZINE HCL 10 MG TAB PO SCH (16:58)
[2024-07-06] MEDS: cloNIDine HCL 0.1 MG TAB PO SCH (16:58)
[2024-07-06] MEDS ORDERED: AZITHROMYCIN 500 MG TAB PO SCH ×2 (20:00→21:00)
[2024-07-06] MEDS ORDERED: BUDESONIDE 0.5 MG/2 ML NEBU INHALATION SCH (20:00)
[2024-07-06] MEDS: ZIPRASIDONE 60 MG CAP PO SCH (20:32)
[2024-07-06] MEDS: guaiFENesin 600 MG TABLET.ER PO SCH (20:32)
[2024-07-06] MEDS: ATORVASTATIN 40 MG TAB PO SCH (20:32)
[2024-07-07] MEDS: ALPRAZolam 0.5 MG TAB PO PRN (01:25)
[2024-07-07] MEDS: FORMOTEROL FUMARATE 20 MCG/2 ML NEBU INHALATION SCH (08:42)
[2024-07-07] MEDS: BUDESONIDE 1 MG/2 ML NEBU INHALATION SCH (08:43)
--- NOTE | 2024-07-07 10:07 | P.PN ---
Subjective Progress Note Date: 07/07/24 This is a pleasant 63-year-old female, known history of severe COPD, her FEV1 is 40% of the predicted, also known to have history of obstructive sleep apnea, normally on CPAP at a pressure of 12 cm of water. She had previous history of renal cell carcinoma undergone previous right nephrectomy followed by targeted therapy. History of GERD. History of multiple admissions with COPD exacerbation in the past. She was just discharged June 29, 2024 for a COPD exacerbation including both hypoxic and hypercapnic respiratory failure. She presented back to the emergency room on 07/05/2024 with complaints of increasing shortness of breath. She felt as though her oxygen tubing may be had a hole in it and was hoping someone could come in to repair it. She was also told she has fluid in her lungs and to go to the emergency department. Chest x-ray shows no acute cardiopulmonary process. Some minimal left basilar atelectasis. White count 12.3. Hemoglobin 13.8. Platelets 147. Sodium 135. Potassium 4.4. Bicarb 35. BUN 23. Creatinine 0.90. Glucose 198. Procalcitonin negative at 0.05. She is seen today in consultation on the regular medical floor. She is currently sitting up in bed. Awake and alert in no acute distress. Maintaining O2 saturations in the 90s on 4 L/min per nasal cannula. She has been afebrile. Hemodynamically stable. The patient is seen today July 07, 2024 in follow-up on the regular medical floor. She is currently sitting up in bed. Awake and alert in no acute distress. Breathing a bit easier today compared to yesterday. She is maintaining O2 saturations in the 90s on 4 L/min per nasal cannula. No IV fluids. She is continued on DuoNeb inhalations, Pulmicort and Perforomist inhalations, prednisone taper. Heparin for DVT prophylaxis. No new labs today. Objective - Vital Signs Vital signs: Vital Signs Temp 97.8 F 07/07/24 06:58 Pulse 100 07/07/24 09:11 Resp 18 07/07/24 06:58 BP 116/72 07/07/24 06:58 Pulse Ox 90 L 07/07/24 06:58 FiO2 Intake & Output 07/06/24 07/07/24 07/07/24 18:59 06:59 18:59 Intake Total 1890 Balance 1890 Intake: Oral 1889 Other: Voiding Method Bedside Commode Bedside Commode # Voids 2 8 # Bowel Movements 0 - Exam GENERAL EXAM: Alert, active, 63-year-old female, sitting up in bed, on 4 L nasal cannula, comfortable in no apparent distress. HEAD: Normocephalic. EYES: Normal reaction of pupils, equal size. NOSE: Clear with pink turbinates. THROAT: No erythema or exudates. NECK: No masses, no JVD. CHEST: No chest wall deformity. LUNGS: Equal air entry with bilateral end expiratory wheeze, diminished. CVS: S1 and S2 normal with no audible murmur, regular rhythm. ABDOMEN: No hepatosplenomegaly, normal bowel sounds, no guarding or rigidity. SPINE: No scoliosis or deformity SKIN: No rashes CENTRAL NERVOUS SYSTEM: No focal deficits, tone is normal in all 4 extremities. EXTREMITIES: There is no peripheral edema. No clubbing, no cyanosis. Peripheral pulses are intact. - Labs CBC & Chem 7: 07/05/24 19:10 07/05/24 19:10 Assessment and Plan Assessment: Acute on chronic hypoxic hypoxic respiratory failure secondary to an acute exacerbation of COPD possibly related to failed oxygen system at home Acute COPD exacerbation, no clear indication for underlying pneumonia. Procalcitonin negative at 0.05 Chronic hypoxic respiratory failure, typically utilizes 3 to 4 L at home. Chronic kidney disease, stage III Severe COPD FEV1 of 40%, maintained on budesonide and Duonebs. (unable to do Trelegy) Obstructive sleep apnea syndrome with apnea-hypopnea index of 16, on CPAP with pressure of 12 History of pulmonary nodule, being followed on outpatient basis, 14 x 8 mm subpleural nodule in the superior segment of the left lower lobe History of renal cell carcinoma previous nephrectomy Chronic kidney disease, stage III, creatinine is at 1.24 History of L1 compression fracture and chronic back pain in addition to compression fracture of the L3-L4 Hypothyroidism Plan: The patient was seen and evaluated Medications reviewed Continue DuoNeb inhalations Continue Pulmicort and Perforomist inhalations Continue prednisone taper Heparin for DVT prophylaxis Protonix for GI prophylaxis We will continue to follow I have personally seen and examined the patient, performed the documentation and the assessment and plan as written. Number of minutes spent on the visit: 10 Dictation was produced using [employer] dictation software. Please excuse any grammatical, word or spelling errors.
[2024-07-07 11:10] LABS: Basophils # (A) 0.04 10*3/uL (0.00-0.10); Basophils % (A) 0.3 %; Eosinophils # (A) 0.18 10*3/uL (0.04-0.35); Eosinophils % (A) 1.5 %; HCT 41.8 % (37.2-46.3); Lymphocytes # (A) 2.66 10*3/uL (0.90-5.00); Lymphocytes % (A) 21.5 %; MCH 31.8 pg (27.0-32.0); MCHC 31.1 g/dL (32.0-37.0); MCV 102.2 fL (80.0-97.0); Mean Platelet Volume 11.7 fL (9.5-12.2); Monocytes % (A) 6.5 %; Neutrophils % (A) 69.5 %; Platelet Count 146 10*3/uL (140-440); RBC 4.09 10*6/uL (4.10-5.20); RDW 14.1 % (11.5-14.5); WBC 12.37 10*3/uL (4.50-10.00)
--- NOTE | 2024-07-07 14:11 | P.PN ---
Subjective Progress Note Date: 07/07/24 patient 63-year-old lady with past medical history significant for COPD, chronic respiratory failure on 4 L of oxygen who presents to the ER because of worsening shortness of breath. Patient was only recently discharged a week back after being admitted for COPD exacerbation. Patient stated that he she was all right yesterday when she started noticing that her breathing was getting worse. Patient was complaining of shortness of breath on rest as on exertion. There was no complaint of chest pain. Patient denied any fever or chills. There was no complaint of cough. Patient denied any swelling of feet. There was no complaint of orthopnea or PND. Because of the shortness of breath, patient came to the ER Initial lab work done in the ER showed WBC 12.39, hemoglobin 13.8, platelet count 147, sodium 135, potassium 4.4, BUN 23, creatinine 0.90, lactate 2.1 bilirubin 1.1, AST 36, ALT 48, alkaline phosphatase 91, proBNP 308, Pro-Aaron 0.05 EKG done in the ER showed heart rate of 90, no ST segment elevation or depression seen, no T-wave inversions seen. Chest x-ray done in the ER showed no acute cardiopulmonary process/disease Patient admitted to internal medicine service 07/07. Patient seen and examined. States breathing has improved. Currently on 4 L of oxygen. Denies any chest pain REVIEW OF SYSTEMS: CONSTITUTIONAL: No fever, no malaise,. CARDIOVASCULAR: No chest pain, no palpitations, no syncope. PULMONARY: No shortness of breath, no cough, GASTROINTESTINAL: No diarrhea, no nausea, no vomiting, no abdominal pain. NEUROLOGICAL: No headaches, no weakness, PHYSICAL EXAMINATION: GENERAL: The patient is alert and oriented x3, not in any acute distress. Well developed, well nourished. HEENT: Pupils are round and equally reacting to light. EOMI. No scleral icterus. No conjunctival pallor. Normocephalic, atraumatic. No pharyngeal erythema. No thyromegaly. CARDIOVASCULAR: S1 and S2 present. No murmurs, rubs, or gallops. PULMONARY: Coarse breath sounds bilaterally , no wheezing or crackles. ABDOMEN: Soft, nontender, nondistended, normoactive bowel sounds. No palpable organomegaly. MUSCULOSKELETAL: No joint swelling or deformity. EXTREMITIES: No cyanosis, clubbing, or pedal edema. NEUROLOGICAL: Gross neurological examination did not reveal any focal deficits. SKIN: No rashes. Assessment and plan Acute COPD exacerbation Acute on chronic hypoxic respiratory failure GERD Hyperlipidemia Liver disease Sleep apnea with a CPAP History of irritable bowel syndrome with colitis Anxiety/bipolar/depression Former smoker Obesity with a BMI of 30.0 History of right nephrectomy in 2022 Monitor vital signs Monitor CBC Monitor CMP Continue oxygen supplementation Continue Mucinex Continue breathing treatment Continue prednisone Pulmonology following Labs and medication were reviewed.. Continue same treatment. Continue with symptomatic treatment. Resume home medication. Monitor labs and vitals. DVT and GI prophylaxis. Further recommendations as per clinical course of the patient Dictation was produced using [employer] dictation software. please excuse any grammatical, word or spelling errors. Objective - Vital Signs Vital signs: Vital Signs Temp 97.8 F 07/07/24 06:58 Pulse 100 07/07/24 09:11 Resp 18 07/07/24 06:58 BP 116/72 07/07/24 06:58 Pulse Ox 90 L 07/07/24 06:58 FiO2 Intake & Output 07/06/24 07/07/24 07/07/24 18:59 06:59 18:59 Intake Total 1889 Balance 0 Intake: Oral 1889 Other: Voiding Method Bedside Commode Bedside Commode Bedside Commode # Voids 2 8 # Bowel Movements 0 - Labs CBC & Chem 7: 07/07/24 10:45 07/05/24 19:10
[2024-07-08 09:22] LABS: ALT 33 U/L (8-44); AST 22 U/L (13-35); Albumin 3.2 g/dL (3.8-4.9); Alkaline Phosphatase 89 U/L (41-126); Blood Urea Nitrogen 25.7 mg/dL (9.0-27.0); Calcium 8.4 mg/dL (8.7-10.3); Chloride 107 mmol/L (96-109); Glucose 106 mg/dL (70-110); Potassium 4.5 mmol/L (3.5-5.5); Sodium 146 mmol/L (135-145); Total Bilirubin 0.3 mg/dL (0.3-1.2); Total Protein 5.2 g/dL (6.2-8.2)
[2024-07-08] MEDS: DEXTROSE 5% IN WATER 1,000 ML IV ONE (11:11)
[2024-07-08 14:48] VITALS: BP 118/73; RESP 18; TEMP 98.3
--- NOTE | 2024-07-08 15:38 | P.PN ---
Subjective Progress Note Date: 07/08/24 On 07/08/2024, seen the patient for a follow-up. The patient is feeling better and she seems to be less short of breath compared to yesterday. The patient was hospitalized for an acute COPD exacerbation without evidence of pneumonia. Procalcitonin level was nonelevated. She has chronic hypoxic luly failure and she typically uses oxygen between 3 and 4 L/min nasal cannula. FEV1 is in order of 40% predicted and she also has obstructive sleep apnea maintained on CPAP therapy at a pressure of 12 cm of water. She is doing well. No new complaints. Labs from yesterday were noted. CBC is not available from today. However, the rest of electrolytes show sodium level of 131, potassium is 4.5, BUN is 25 with a creatinine of 1. LFTs are normal. The patient has no new complaints. Oxygenation is stable and she is currently on 4 L of oxygen by nasal cannula. She is hemodynamically stable and she is afebrile. The patient is on DuoNeb. The patient is currently on a prednisone burst taper starting with 40 mg p.o. daily. She is on a combination Perforomist and Pulmicort neb treatments twice a day. Rest of the home medications have been all resumed. Objective - Vital Signs Vital signs: Vital Signs Temp 97.7 F 07/08/24 07:01 Pulse 86 07/08/24 10:28 Resp 19 07/08/24 07:01 BP 139/84 07/08/24 10:28 Pulse Ox 95 07/08/24 09:05 FiO2 Intake & Output 07/07/24 07/08/24 07/08/24 18:59 06:59 18:59 Intake Total 2130 Balance 2130 Intake: Oral 2130 Other: Voiding Method Bedside Commode # Voids 3 8 # Bowel Movements 1 1 - Exam GENERAL EXAM: Alert, active, 63-year-old female, sitting up in bed, on 4 L nasal cannula, comfortable in no apparent distress. HEAD: Normocephalic. EYES: Normal reaction of pupils, equal size. NOSE: Clear with pink turbinates. THROAT: No erythema or exudates. NECK: No masses, no JVD. CHEST: No chest wall deformity. LUNGS: Equal air entry with bilateral end expiratory wheeze, diminished. CVS: S1 and S2 normal with no audible murmur, regular rhythm. ABDOMEN: No hepatosplenomegaly, normal bowel sounds, no guarding or rigidity. SPINE: No scoliosis or deformity SKIN: No rashes CENTRAL NERVOUS SYSTEM: No focal deficits, tone is normal in all 4 extremities. EXTREMITIES: There is no peripheral edema. No clubbing, no cyanosis. Peripheral pulses are intact. - Labs CBC & Chem 7: 07/07/24 10:45 07/08/24 13:05 Labs: Abnormal Lab Results - Last 24 Hours (Table) 07/08/24 Range/Units 02:54 Sodium 146 H (135-145) mmol/L BUN/Creatinine Ratio 25.70 H (12.00-20.00) Ratio Calcium 8.4 L (8.7-10.3) mg/dL Total Protein 5.2 L (6.2-8.2) g/dL Albumin 3.2 L (3.8-4.9) g/dL Microbiology - Last 24 Hours (Table) 07/06/24 01:32 Blood Culture - Preliminary Blood Assessment and Plan Plan: Acute on chronic hypoxic hypoxic respiratory failure secondary to an acute exacerbation of COPD possibly related to failed oxygen system at home, improved and the patient is currently on 4 L of oxygen by nasal cannula Acute COPD exacerbation, no clear indication for underlying pneumonia. Procalcitonin negative at 0.05 Chronic hypoxic respiratory failure, typically utilizes 3 to 4 L at home. Chronic kidney disease, stage III Severe COPD FEV1 of 40%, maintained on budesonide and Duonebs. (unable to do Trelegy) Obstructive sleep apnea syndrome with apnea-hypopnea index of 16, on CPAP with pressure of 12 History of pulmonary nodule, being followed on outpatient basis, 14 x 8 mm subpleural nodule in the superior segment of the left lower lobe History of renal cell carcinoma previous nephrectomy Chronic kidney disease, stage III, creatinine is at 1.24 History of L1 compression fracture and chronic back pain in addition to compression fracture of the L3-L4 Hypothyroidism Plan: Clinically stable and the patient may potentially go home today Continue DuoNeb inhalations Continue Pulmicort and Perforomist inhalations on outpatient basis Continue prednisone taper and this to be completed on outpatient basis Heparin for DVT prophylaxis Protonix for GI prophylaxis We will continue to follow on outpatient basis
[2024-07-08 16:18] VITALS: PULSE 78
--- NOTE | 2024-07-10 16:29 | CDI ---
Documentation Clarification Form Date: 07/10/2024 04:10:00 PM From: Marissa Wells Phone: Admit Date: 07/05/2024 08:38:00 PM Patient Name: Velia Azevedo Visit Number: [id number] Discharge Date: 07/08/2024 04:40:00 PM ATTENTION: The Clinical Documentation Specialists (CDI) and [facility] Coding Staff appreciate your assistance in clarifying documentation. Please respond to the clarification below the line at the bottom and electronically sign. The CDI & [facility] Coding staff will review the response and follow-up if needed. Please note: Queries are made part of the Legal Health Record. If you have any questions, please contact the author of this message via ITS. Doctor/Provider: Parish Soni There is documentation of Acute on chronichypoxichypoxic respiratory failuresecondary to anacute exacerbation of COPDpossibly related to failed oxygen system at home in 07/06/2024 consult note ]. Additional clarification is requested. History/Risk Factors: patient 63-year-old lady with past medical history significant forCOPD,chronic respiratory failureon 4 L of oxygen who presents to the ER because of worseningshortness of breath. Patient was only recently discharged a week back after being admitted forCOPD exacerbation. Clinical Indicators: On 07/06 H/P -Initial lab work done in the ER showed WBC 12. 39, hemoglobin 13. 8, platelet count 147, sodium 135, potassium 4. 4, BUN 23, creatinine 0. 90, lactate 2. 1 bilirubin 1. 1, AST 36, ALT 48, alkaline phosphatase 91, proBNP 308, Pro-Aaron 0. 05 EKGdone in the ER showed heart rate of 90,noST segmentelevationor depressionseen, no T-wave inversions seen. Chest x-raydone in the ER showed no acute cardiopulmonary process/disease Patient admitted to internal medicine service On 07/07 PN She presented back to the emergency room on07/05/2024with complaints of increasing shortness of breath. She felt as though her oxygen tubing may be had a hole in it and was hoping someone could come in torepairit. She was also told she has fluid in her lungs and to go to the emergency department. On 07/07 pn -She is currently sitting up in bed. Awake and alert inno acute distress. Breathing a bit easier today compared to yesterday. She is maintaining O2 saturations in the 90s on 4 L/min per nasal cannula. No IV fluids. She is continued on DuoNeb inhalations, Pulmicort and Perforomist inhalations, prednisone taper. On 07/08 pn -The patient is feeling better and sheseemsto be lessshort of breathcompared to yesterday. The patient was hospitalized for anacute COPD exacerbationwithout evidence ofpneumonia. Procalcitonin level was nonelevated. She has chronichypoxictori failure and she typically uses oxygen between 3 and 4 L/min nasal cannula. FEV1 is in order of 40% predicted and she also hasobstructive sleep apneamaintained onCPAP therapyat apressureof 12 cm of water. She is doing well. Treatment: Continue DuoNeb inhalations Continue Symbicort Continue prednisone taper Can you please clarify Acute on chronic hypoxic respiratory is due to ? [ X ] Complication of machinery (failed oxygen system) [ ] Not a complication of machinery (failed oxygen system [ ] Other, please specify [ ] Unable to determine (Template Last Revised: May 2020) MTDD
== END 2024-07-08 16:40 | disposition home health service (06) | DRG 189 ==
LOC: EC 18:58 → 4SSUR 20:38
PROVIDERS: ADMIT Hospitalist; ATTEND Hospitalist
DX: J96.21 Acute and chronic respiratory failure with hypoxia (principal); J95.850 Mechanical complication of respirator; I42.9 Cardiomyopathy, unspecified; Z99.81 Dependence on supplemental oxygen; J44.1 Chronic obstructive pulmonary disease with (acute) exacerbation; N18.30 Chronic kidney disease, stage 3 unspecified; F31.9 Bipolar disorder, unspecified; E03.9 Hypothyroidism, unspecified; K76.9 Liver disease, unspecified; E66.9 Obesity, unspecified; G47.33 Obstructive sleep apnea (adult) (pediatric); G89.29 Other chronic pain; M54.9 Dorsalgia, unspecified; K21.9 Gastro-esophageal reflux disease without esophagitis; E78.5 Hyperlipidemia, unspecified; F41.9 Anxiety disorder, unspecified; Z68.30 Body mass index [BMI] 30.0-30.9, adult; Z79.899 Other long term (current) drug therapy; Z79.890 Hormone replacement therapy; Z88.5 Allergy status to narcotic agent; Z88.1 Allergy status to other antibiotic agents; Z88.0 Allergy status to penicillin; Z90.5 Acquired absence of kidney; Z88.2 Allergy status to sulfonamides; Z87.891 Personal history of nicotine dependence; Z85.528 Personal history of other malignant neoplasm of kidney; Z90.710 Acquired absence of both cervix and uterus
CPT/HCPCS: 36415; 71046; 80053; 83605; 83880; 84145; 84295; 84484; 85025; 85610; 85730; 87040; 93005; 94640; 94760; 96365; 96366; 96375; 99285

== ENCOUNTER 2024-07-27 14:10 | Inpatient (IN) | payer MEDICARE, OTHER ==
--- NOTE | 2024-07-27 14:19 | ED ---
General Adult HPI - General Source: patient, EMS, RN notes reviewed Mode of arrival: EMS Limitations: no limitations <Hieu Thorne - Last Filed: 07/27/24 14:49> - History of Present Illness -: unknown Severity scale (1-10): 10 Consistency: constant Improves with: none Worsens with: none Associated Symptoms: chest pain, cough, shortness of breath, weakness Treatments Prior to Arrival: none <Satnam Friedman - Last Filed: 07/27/24 18:07> - General Stated complaint: YAN Time Seen by Provider: 07/27/24 14:13 - History of Present Illness Initial comments: Patient is a 63-year-old female present to the emergency department with concerns with difficulty breathing. Onset of symptoms was yesterday, worse last couple hours. No fever. No cough. Patient does have history of similar symptoms previously associated with COPD. Patient is on 4-1/2 L home O2. (Hieu Thorne) This is a 63-year-old female to the ER for evaluation of significant COPD exacerbation with oxygen in the 60% pulse ox at home (Satnam Friedman) - Related Data Home Medications Medication Instructions Recorded Confirmed Ziprasidone [Geodon] 40 mg PO DAILY@0500 02/07/14 07/27/24 Albuterol Inhaler [Ventolin Hfa 2 puff INHALATION RT-Q6H PRN 11/07/17 07/27/24 Inhaler] Atorvastatin Calcium [Lipitor] 40 mg PO HS@1700 07/03/22 07/27/24 Levothyroxine Sodium [Synthroid] 112 mcg PO DAILY@0500 07/03/22 07/27/24 Ziprasidone [Geodon] 60 mg PO HS@17007/03/22 07/27/24 buPROPion HCL [Wellbutrin SR] 200 mg PO BID@0500,0 07/03/22 07/27/24 Propranolol [Inderal] 20 mg PO BID@0500,1700 03/14/23 07/27/24 HYDROcodone/APAP 7.5-325MG [[place] 1 tab PO Q8H PRN 09/09/23 07/27/24 7.5-325] Ipratropium-Albuterol Nebulize 3 ml INHALATION RT-QID 09/09/23 07/27/24 [Duoneb 0.5 mg-3 mg/3 ml Soln] Magnesium Oxide [Mag-Ox] 400 mg PO BID@0500,1700 09/09/23 07/27/24 Pantoprazole [Protonix] 40 mg PO DAILY@0500 09/09/23 07/27/24 ALPRAZolam [Xanax] 0.5 mg PO DAILY PRN 04/17/24 07/27/24 Budesonide 0.5 mg INHALATION RT-BID@0500,17004/17/24 07/27/24 Multivitamins, Thera [Multivitamin 1 tab PO DAILY@05004/17/24 07/27/24 (formulary)] cloNIDine HCL [Catapres] 0.1 mg PO TID@0500,1100,169904/17/24 07/27/24 hydrALAZINE HCL [Apresoline] 10 mg PO TID@0500,1100,17004/17/24 07/27/24 Formoterol Fumarate [Perforomist] 20 mcg INHALATION RT-BID@0500,17007/27/24 07/27/24 Metamucil Gummy 1 tab PO HS@169907/27/24 07/27/24 Sennosides [Senokot] 8.6 mg PO DAILY PRN 07/27/24 07/27/24 Allergies Allergy/AdvReac Type Severity Reaction Status Date / Time codeine Allergy Rash/Hives Verified 07/27/24 17:15 doxycycline Allergy Rash/Hives Verified 07/27/24 17:15 Penicillins Allergy Rash/Hives Verified 07/27/24 17:15 on feet Sulfa (Sulfonamide Allergy Rash/Hives Verified 07/27/24 17:15 Antibiotics) ibuprofen [From Motrin] AdvReac Nausea & Verified 07/27/24 17:15 Vomiting Review of Systems ROS Other: All systems not noted in ROS Statement are negative. Constitutional: Denies: fever, chills Respiratory: Reports: as per HPI, cough, dyspnea Cardiovascular: Denies: chest pain Endocrine: Reports: fatigue Neurological: Denies: weakness <Hieu Thorne - Last Filed: 07/27/24 14:49> ROS Other: All systems not noted in ROS Statement are negative. <Satnam Friedman - Last Filed: 07/27/24 18:07> ROS Statement: Those systems with pertinent positive or pertinent negative responses have been documented in the HPI. Past Medical History Past Medical History: Asthma, COPD, GERD/Reflux, Hyperlipidemia, Liver Disease, Sleep Apnea/CPAP/BIPAP Additional Past Medical History / Comment(s): hx internal hemorrhoid, kidney CA with right nephrectomy, CPAP use, colitis, IBS History of Any Multi-Drug Resistant Organisms: None Reported Past Surgical History: Hysterectomy Additional Past Surgical History / Comment(s): right nephrectomy 04/11/22 Past Anesthesia/Blood Transfusion Reactions: No Reported Reaction Past Psychological History: Anxiety, Bipolar, Depression Smoking Status: Former smoker Past Alcohol Use History: None Reported Past Drug Use History: None Reported - Past Family History Father Family Medical History: COPD, Hyperlipidemia, Hypertension Mother Family Medical History: COPD, Hyperlipidemia, Hypertension <Hieu Thorne - Last Filed: 07/27/24 14:49> General Exam Limitations: no limitations General appearance: alert Head exam: Present: normocephalic Eye exam: Present: normal appearance Neck exam: Present: normal inspection Respiratory exam: Present: wheezes, rhonchi Cardiovascular Exam: Present: regular rate, normal rhythm GI/Abdominal exam: Present: soft. Absent: tenderness Extremities exam: Present: normal inspection. Absent: pedal edema, calf tenderness Back exam: Present: normal inspection Neurological exam: Present: alert Psychiatric exam: Present: normal affect, normal mood Skin exam: Present: normal color <Hieu Thorne - Last Filed: 07/27/24 14:49> General appearance: alert, in no apparent distress Head exam: Present: atraumatic, normocephalic, normal inspection Eye exam: Present: normal appearance, PERRL, EOMI. Absent: scleral icterus, conjunctival injection, periorbital swelling ENT exam: Present: normal exam, mucous membranes moist Neck exam: Present: normal inspection. Absent: tenderness, meningismus, lymphadenopathy Respiratory exam: Present: respiratory distress, wheezes, accessory muscle use, decreased breath sounds, prolonged expiratory. Absent: rales, rhonchi, stridor Cardiovascular Exam: Present: regular rate, normal rhythm, normal heart sounds. Absent: systolic murmur, diastolic murmur, rubs, gallop, clicks GI/Abdominal exam: Present: soft, normal bowel sounds. Absent: distended, tenderness, guarding, rebound, rigid Extremities exam: Present: normal inspection, full ROM, normal capillary refill. Absent: tenderness, pedal edema, joint swelling, calf tenderness Back exam: Present: normal inspection Neurological exam: Present: alert, oriented X3, CN II-XII intact Psychiatric exam: Present: normal affect, normal mood Skin exam: Present: warm, dry, intact, normal color. Absent: rash <Satnam Friedman - Last Filed: 07/27/24 18:07> Course <Satnam Friedman - Last Filed: 07/27/24 18:07> Vital Signs 07/27/24 07/27/24 07/27/24 14:16 14:17 14:24 Temperature 97.8 F Pulse Rate 107 H 104 H Respiratory 40 H 46 H Rate Blood Pressure 165/109 O2 Sat by Pulse 77 L Oximetry 07/27/24 07/27/24 07/27/24 14:35 14:40 16:19 Temperature Pulse Rate 106 H 103 H 103 H Respiratory 24 20 Rate Blood Pressure 135/110 152/96 O2 Sat by Pulse 91 L 93 L Oximetry 07/27/24 07/27/24 07/27/24 16:26 16:37 17:00 Temperature Pulse Rate 104 H 104 H 108 H Respiratory 20 Rate Blood Pressure 133/90 O2 Sat by Pulse 92 L Oximetry - Reevaluation(s) Reevaluation #1: 07/27/24 18:06 Medical records reviewed (Satnam Friedman) Reevaluation #2: 07/27/24 18:06 Patient showing no improvement here in the ER (Satnam Friedman) - Consultations Consultation #1: Spoke with [facility] who agrees to admit this patient (Satnam Friedman) EKG Findings - EKG Results: EKG: interpreted by ERMD (Left axis. Poor R wave progression.), sinus rhythm, normal ST/T EKG shows: tachycardia <Hieu Thorne - Last Filed: 07/27/24 14:49> Medical Decision Making - Lab Data Result diagrams: 07/27/24 14:33 <Hieu Thorne - Last Filed: 07/27/24 14:49> - Lab Data Result diagrams: 07/27/24 14:33 07/27/24 14:33 - Radiology Data Radiology results: report reviewed (Chest x-ray is negative for acute disease), image reviewed <HarshalindseySatnam Alyson - Last Filed: 07/27/24 18:07> - Medical Decision Making Was pt. sent in by a medical professional or institution (SHABANA Mcneil, SENIOR QUALITATIVE RESEARCHER, urgent care, hospital, or fdc...) When possible be specific @ -[No] Did you speak to anyone other than the patient for history (EMS, parent, family, police, friend...)? What history was obtained from this source @ -EMS helps provide history including nebulizer treatment given and route Did you review nursing and triage notes (agree or disagree)? Why? @ -[I reviewed and agree with nursing and triage notes] Were old charts reviewed (outside hosp., previous admission, EMS record, old EKG, old radiological studies, urgent care reports/EKG's, fdc records)? Report findings @ -Previous admission reviewed Differential Diagnosis (chest pain, altered mental status, abdominal pain women, abdominal pain men, vaginal bleeding, weakness, fever, dyspnea, syncope, headache, dizziness, GI bleed, back pain, seizure, CVA, palpatations, mental health, musculoskeletal)? @ -Differential Dyspnea: Coronary syndrome, arrhythmia, tamponade, asthma, COPD, pulmonary embolism, pneumonia, pneumothorax, pulmonary effusion, anaphylaxis, diabetic ketoacidosis, flailed chest, pulmonary contusion, diaphragmatic rupture, anemia, neuromuscular, this is not meant to be an all-inclusive list. EKG interpreted by me (3pts min.). @ -[As above] X-rays interpreted by me (1pt min.). @ -Still pending at this time CT interpreted by me (1pt min.). @ -[None done] U/S interpreted by me (1pt. min.). @ -[None done] What testing was considered but not performed or refused? (CT, X-rays, U/S, labs)? Why? @ -[None] What meds were considered but not given or refused? Why? @ -[None] Did you discuss the management of the patient with other professionals (professionals i.e. SHABANA Mcneil, SENIOR QUALITATIVE RESEARCHER, lab, RT, psych nurse, hospital social worker, physical therapy director, teacher, air support control officer, counseling case manager)? Give summary @ -[No] Was smoking cessation discussed for >3mins.? @ -[No] Was critical care preformed (if so, how long)? @ -[No] Were there social determinants of health that impacted care today? How? (Homelessness, low income, unemployed, alcoholism, drug addiction, transportation, low edu. Level, literacy, decrease access to med. care, fdc, rehab)? @ -[No] Was there de-escalation of care discussed even if they declined (Discuss DNR or withdrawal of care, Hospice)? DNR status @ -[No] What co-morbidities impacted this encounter? (DM, HTN, Smoking, COPD, CAD, Cancer, CVA, ARF, Chemo, Hep., AIDS, mental health diagnosis, sleep apnea, morbid obesity)? @ -COPD history Was patient admitted / discharged? Hospital course, mention meds given and route, prescriptions, significant lab abnormalities, going to OR and other pertinent info. @ -Patient presents with cough and dyspnea, similar to previous COPD. Patient is somewhat hypoxic on arrival. Patient given additional nebulizer in emergency department. Case endorsed to Dr. Rosario At shift change at 3 PM for final disposition (Hieu Thorne) 63 female will be admitted for COPD exacerbation severe with hypoxia (Satnam Friedman) - Lab Data Lab Results 07/27/24 07/27/24 07/27/24 Range/Units 14:16 14:33 14:33 WBC 11.36 H (4.50-10.00) 10*3/uL RBC 4.30 (4.10-5.20) 10*6/uL Hgb 13.9 (12.0-15.0) g/dL Hct 43.5 (37.2-46.3) % MCV 101.2 H (80.0-97.0) fL MCH 32.3 H (27.0-32.0) pg MCHC 32.0 (32.0-37.0) g/dL Plt Count 201 (140-440) 10*3/uL MPV 11.7 (9.5-12.2) fL Immature Gran % (Auto) 1.1 % Neutrophils % 70.1 % Lymphocytes % 20.4 % Monocytes % 7.0 % Eosinophils % 0.9 % Basophils % 0.5 % Immature Gran # 0.12 H (0.00-0.04) 10*3/uL Neutrophils # 7.97 H (1.80-7.70) 10*3/uL Lymphocytes # 2.32 (0.90-5.00) 10*3/uL Monocytes # 0.79 (0.20-1.00) 10*3/uL Eosinophils # 0.10 (0.04-0.35) 10*3/uL Basophils # 0.06 (0.00-0.10) 10*3/uL PT 10.4 (10.0-12.5) sec INR 0.9 (<1.2) APTT 23.4 (22.0-30.0) sec Sodium (137-145) mmol/L Potassium (3.5-5.1) mmol/L Chloride (98-107) mmol/L Carbon Dioxide (22-30) mmol/L Anion Gap mmol/L BUN (7-17) mg/dL Creatinine (0.52-1.04) mg/dL Est GFR (CKD-EPI)AfAm (>60 ml/min/1.73 sqM) Est GFR (CKD-EPI)NonAf (>60 ml/min/1.73 sqM) Glucose (74-99) mg/dL Plasma Lactic Acid Jimmy (0.7-2.0) mmol/L Calcium (8.4-10.2) mg/dL Magnesium (1.6-2.3) mg/dL Total Bilirubin (0.2-1.3) mg/dL AST (14-36) U/L ALT (4-34) U/L Alkaline Phosphatase (38-126) U/L Total Protein (6.3-8.2) g/dL Albumin (3.5-5.0) g/dL Influenza Type A (PCR) Not Detected (Not Detectd) Influenza Type B (PCR) Not Detected (Not Detectd) RSV (PCR) Not Detected (Not Detectd) SARS-CoV-2 (PCR) Not Detected (Not Detectd) 07/27/24 07/27/24 Range/Units 14:33 14:33 WBC (4.50-10.00) 10*3/uL RBC (4.10-5.20) 10*6/uL Hgb (12.0-15.0) g/dL Hct (37.2-46.3) % MCV (80.0-97.0) fL MCH (27.0-32.0) pg MCHC (32.0-37.0) g/dL Plt Count (140-440) 10*3/uL MPV (9.5-12.2) fL Immature Gran % (Auto) % Neutrophils % % Lymphocytes % % Monocytes % % Eosinophils % % Basophils % % Immature Gran # (0.00-0.04) 10*3/uL Neutrophils # (1.80-7.70) 10*3/uL Lymphocytes # (0.90-5.00) 10*3/uL Monocytes # (0.20-1.00) 10*3/uL Eosinophils # (0.04-0.35) 10*3/uL Basophils # (0.00-0.10) 10*3/uL PT (10.0-12.5) sec INR (<1.2) APTT (22.0-30.0) sec Sodium 142 (137-145) mmol/L Potassium 4.8 (3.5-5.1) mmol/L Chloride 100 (98-107) mmol/L Carbon Dioxide 38 H (22-30) mmol/L Anion Gap 4 mmol/L BUN 17 (7-17) mg/dL Creatinine 1.10 H (0.52-1.04) mg/dL Est GFR (CKD-EPI)AfAm 61 (>60 ml/min/1.73 sqM) Est GFR (CKD-EPI)NonAf 53 (>60 ml/min/1.73 sqM) Glucose 91 (74-99) mg/dL Plasma Lactic Acid Jimmy 1.0 (0.7-2.0) mmol/L Calcium 10.0 (8.4-10.2) mg/dL Magnesium 1.6 (1.6-2.3) mg/dL Total Bilirubin 0.5 (0.2-1.3) mg/dL AST 20 (14-36) U/L ALT 15 (4-34) U/L Alkaline Phosphatase 85 (38-126) U/L Total Protein 6.3 (6.3-8.2) g/dL Albumin 3.7 (3.5-5.0) g/dL Influenza Type A (PCR) (Not Detectd) Influenza Type B (PCR) (Not Detectd) RSV (PCR) (Not Detectd) SARS-CoV-2 (PCR) (Not Detectd) Critical Care Time Critical Care Time: Yes Total Critical Care Time: 31 <Satnam Friedman - Last Filed: 07/27/24 18:07> Disposition <Hieu Thorne - Last Filed: 07/27/24 14:49> Is patient prescribed a controlled substance at d/c from ED?: No Time of Disposition: 18:00 <Satnam Friedman - Last Filed: 07/27/24 18:07> Clinical Impression: Respiratory failure, COPD exacerbation, Hypoxia, Acute respiratory distress syndrome in adult, Acute hypoxic respiratory failure Disposition: ADMITTED IP TO THIS HOSP Condition: Fair Referrals: None,Stated [REFERRING] - 1-2 days
[2024-07-27] MEDS: IPRATROPIUM-ALBUTEROL 3 ML NEB INHALATION STA ×3 (14:22→16:23)
[2024-07-27] MEDS: methylPREDNISolone SOD SUCCI 125 MG/2 ML VIAL IV STA (14:43)
[2024-07-27 14:44] LABS: Basophils # (A) 0.06 10*3/uL (0.00-0.10); Basophils % (A) 0.5 %; Eosinophils % (A) 0.9 %; HCT 43.5 % (37.2-46.3); HGB 13.9 g/dL (12.0-15.0); Lymphocytes # (A) 2.32 10*3/uL (0.90-5.00); Lymphocytes % (A) 20.4 %; MCH 32.3 pg (27.0-32.0); MCV 101.2 fL (80.0-97.0); Mean Platelet Volume 11.7 fL (9.5-12.2); Monocytes # (A) 0.79 10*3/uL (0.20-1.00); Neutrophils # (A) 7.97 10*3/uL (1.80-7.70); Neutrophils % (A) 70.1 %; Platelet Count 201 10*3/uL (140-440); RDW 13.6 % (11.5-14.5); WBC 11.36 10*3/uL (4.50-10.00)
[2024-07-27 14:55] LABS: ALT 15 U/L (4-34); AST 20 U/L (14-36); African American GFR (CKD) 61 (>60 ml/min/1.73 sqM); Albumin 3.7 g/dL (3.5-5.0); Alkaline Phosphatase 85 U/L (38-126); Anion Gap 4 mmol/L; Blood Urea Nitrogen 17 mg/dL (7-17); Carbon Dioxide 38 mmol/L (22-30); Chloride 100 mmol/L (98-107); Glucose 91 mg/dL (74-99); Magnesium 1.6 mg/dL (1.6-2.3); Non-African American GFR(CKD) 53 (>60 ml/min/1.73 sqM); Potassium 4.8 mmol/L (3.5-5.1); Sodium 142 mmol/L (137-145); Total Bilirubin 0.5 mg/dL (0.2-1.3); Total Protein 6.3 g/dL (6.3-8.2)
[2024-07-27 14:57] LABS: INR 0.9 (<1.2); Partial Thromboplastin Time 23.4 sec (22.0-30.0); Prothrombin Time 10.4 sec (10.0-12.5)
[2024-07-27 15:32] LABS: Influenza A Not Detected (Not Detectd); Influenza B Not Detected (Not Detectd); RSV Not Detected (Not Detectd)
--- NOTE | 2024-07-27 15:41 | XR ---
EXAMINATION TYPE: XR chest 2V DATE OF EXAM: 07/27/2024 3:11 PM COMPARISON: 06/11/2024 CLINICAL INDICATION: Female, 63 years old with history of difficulty breathing; [facility] TECHNIQUE: XR chest 2V Frontal and lateral views of the chest. FINDINGS: Lungs/Pleura: Similar opacity extending from the right hilum down to the diaphragm as correlating wit h prior CT 06/11/2024 of atelectasis There is no evidence of pleural effusion, focal consolidation, o r pneumothorax. Pulmonary vascularity: Unremarkable. Heart/mediastinum: Cardiomediastinal silhouette is unremarkable. Musculoskeletal: No acute osseous pathology. IMPRESSION: No acute cardiopulmonary disease/process. Similar atelectasis seen extending from the pulmonary hilum down towards the right diaphragm. [facility], , 07/27/2024 3:38 PM
[2024-07-27] MEDS: SODIUM CHLORIDE 0.9% 1,000 ML IV ONE (16:36)
[2024-07-27] MEDS ORDERED: NALOXONE 0.4 MG/ML 1 ML VIAL IV PRN (18:03)
[2024-07-27] MEDS: SODIUM CHLORIDE 0.9% 1,000 ML IV SCH (18:51)
[2024-07-27] MEDS: ALBUTEROL NEBULIZED 2.5 MG/3 ML INHALATION SCH (19:39)
[2024-07-27] MEDS: MORPHINE SULFATE 4 MG/ML SYRINGE IV PRN (20:04)
[2024-07-28] MEDS: FORMOTEROL FUMARATE 20 MCG/2 ML NEBU INHALATION SCH ×2 (09:09→18:20)
[2024-07-28] MEDS: BUDESONIDE 1 MG/2 ML NEBU INHALATION SCH (09:09)
[2024-07-28] MEDS: IPRATROPIUM-ALBUTEROL 3 ML NEB INHALATION SCH (09:09)
[2024-07-28] MEDS: methylPREDNISolone SOD SUCCI 125 MG/2 ML VIAL IV SCH (09:20)
[2024-07-28] MEDS: PANTOPRAZOLE 40 MG/10 ML VIAL IV SCH (09:21)
--- NOTE | 2024-07-28 09:33 | P.CNPUL ---
History of Present Illness Consult date: 07/28/24 Requesting physician: King Rendon Reason for consult: dyspnea, cough, COPD, hypoxemia Chief complaint: Shortness of breath. History of present illness: Pulmonary consult dated July 28, 2024. 63-year-old female with a known history of COPD. The patient is seen today in room 460. She was recently in the hospital between July 05 and July 08. She comes in with complaints of increasing shortness of breath, and low saturations. She states that her saturations were in the 60s. She typically uses oxygen at home, between 4 to 4-1/2 L. She does complain of shortness of breath, cough, and occasional phlegm production. There is no fever or chills. Her viral screen was negative. She is currently on 6 L nasal cannula. She is getting saline at 75 cc an hour. She has severe COPD with an FEV1 that is 40% of predicted. She is currently on DuoNebs, budesonide, formoterol, and Solu-Medrol . Current laboratory data includes a white count of 11.4, hemoglobin 13.9, hematocrit 43.5, and a normal platelet count. Sodium 142, potassium 4.8, chlorides 100, CO2 38, BUN 17, creatinine 1.10. Liver function test are normal. Viral screen was negative. Chest x-ray showed nothing acute. Review of Systems REVIEW OF SYSTEMS: CONSTITUTIONAL: [Negative.] NEUROLOGIC: [ Negative.] HEENT: [ Negative.] CARDIAC: [Negative.] PULMONARY: Shortness of breath, cough, minimal to no phlegm production. GI: [Negative.] : [Negative.] RHEUMATOLOGIC: [ Negative.] IMMUNOLOGIC: [ Negative.] ENDOCRINE: [Negative. ] DERMATOLOGIC: [Negative.] Past Medical History Past Medical History: Asthma, COPD, GERD/Reflux, Hyperlipidemia, Liver Disease, Sleep Apnea/CPAP/BIPAP Additional Past Medical History / Comment(s): hx internal hemorrhoid, kidney CA with right nephrectomy, CPAP use, colitis, IBS History of Any Multi-Drug Resistant Organisms: None Reported Past Surgical History: Hysterectomy Additional Past Surgical History / Comment(s): right nephrectomy 04/11/22 Past Anesthesia/Blood Transfusion Reactions: No Reported Reaction Past Psychological History: Anxiety, Bipolar, Depression Smoking Status: Former smoker Past Alcohol Use History: None Reported Past Drug Use History: None Reported - Past Family History Father Family Medical History: COPD, Hyperlipidemia, Hypertension Mother Family Medical History: COPD, Hyperlipidemia, Hypertension Medications and Allergies Home Medications Medication Instructions Recorded Confirmed Type Ziprasidone [Geodon] 40 mg PO DAILY@0500 02/07/14 07/27/24 History Albuterol Inhaler [Ventolin Hfa 2 puff INHALATION RT-Q6H PRN 11/07/17 07/27/24 History Inhaler] Atorvastatin Calcium [Lipitor] 40 mg PO HS@1700 07/03/22 07/27/24 History Levothyroxine Sodium [Synthroid] 112 mcg PO DAILY@0500 07/03/22 07/27/24 History Ziprasidone [Geodon] 60 mg PO HS@1700 07/03/22 07/27/24 History buPROPion HCL [Wellbutrin SR] 200 mg PO BID@0500,1700 07/03/22 07/27/24 History Propranolol [Inderal] 20 mg PO BID@0500,1700 03/14/23 07/27/24 History HYDROcodone/APAP 7.5-325MG [[place] 1 tab PO Q8H PRN 09/09/23 07/27/24 History 7.5-325] Ipratropium-Albuterol Nebulize 3 ml INHALATION RT-QID 09/09/23 07/27/24 History [Duoneb 0.5 mg-3 mg/3 ml Soln] Magnesium Oxide [Mag-Ox] 400 mg PO BID@0500,1700 09/09/23 07/27/24 History Pantoprazole [Protonix] 40 mg PO DAILY@0500 09/09/23 07/27/24 History ALPRAZolam [Xanax] 0.5 mg PO DAILY PRN 04/17/24 07/27/24 History Budesonide 0.5 mg INHALATION RT-BID@0500,1700 04/17/24 07/27/24 History Multivitamins, Thera [Multivitamin 1 tab PO DAILY@0500 04/17/24 07/27/24 History (formulary)] cloNIDine HCL [Catapres] 0.1 mg PO TID@0500,1100,1700 04/17/24 07/27/24 History hydrALAZINE HCL [Apresoline] 10 mg PO TID@0500,1100,1700 04/17/24 07/27/24 History Formoterol Fumarate [Perforomist] 20 mcg INHALATION RT-BID@0500,1700 07/27/24 07/27/24 History Metamucil Gummy 1 tab PO HS@1700 07/27/24 07/27/24 History Sennosides [Senokot] 8.6 mg PO DAILY PRN 07/27/24 07/27/24 History Allergies Allergy/AdvReac Type Severity Reaction Status Date / Time codeine Allergy Rash/Hives Verified 07/27/24 17:15 doxycycline Allergy Rash/Hives Verified 07/27/24 17:15 Penicillins Allergy Rash/Hives Verified 07/27/24 17:15 on feet Sulfa (Sulfonamide Allergy Rash/Hives Verified 07/27/24 17:15 Antibiotics) ibuprofen [From Motrin] AdvReac Nausea & Verified 07/27/24 17:15 Vomiting Physical Exam Osteopathic Statement: *. No significant issues noted on an osteopathic str uctural exam other than those noted in the History and Physical/Consult. Vitals: Vital Signs Temp Pulse Pulse Resp BP BP Pulse Ox 07/28/24 09:12 118 H 94 L 07/28/24 07:52 97.9 F 103 H 16 112/63 94 L 07/28/24 01:23 98.3 F 119 H 17 136/80 94 L 07/27/24 22:51 121 H 17 07/27/24 22:44 98.3 F 121 H 17 147/86 90 L 07/27/24 22:00 116 H 18 138/79 90 L 07/27/24 21:00 120 H 18 138/79 90 L 07/27/24 20:43 98.2 F 118 H 18 105/77 90 L 07/27/24 20:00 110 H 20 105/77 91 L 07/27/24 19:52 115 H 07/27/24 19:43 89 L 07/27/24 19:39 112 H 07/27/24 18:51 105 H 20 138/80 90 L 07/27/24 17:00 108 H 20 133/90 92 L 07/27/24 16:37 104 H 07/27/24 16:26 104 H 07/27/24 16:19 103 H 20 152/96 93 L 07/27/24 14:40 103 H 24 135/110 91 L 07/27/24 14:35 106 H 07/27/24 14:24 104 H 07/27/24 14:17 97.8 F 107 H 46 H 165/109 77 L 07/27/24 14:16 40 H Intake and Output 07/27/24 07/28/24 07/28/24 22:59 06:59 14:59 Output Total 860 Balance -860 Output: Urine 860 Other: Voiding Method Bedside Commode External Catheter # Voids 1 1 Weight 71.668 kg No acute distress, oriented 3. No conversational dyspnea, audible wheezing, or use of accessory muscles. HEENT examination is grossly unremarkable. Mucous membranes are moist. No oral lesions. Neck supple. Full range of motion. No adenopathy thyromegaly or neck vein distention. Cardiovascular examination reveals regular rhythm rate. S1-S2 normal. No S3 or S4. No discernible murmur noted. Heart sounds are distant. Lungs reveal bilateral expiratory rhonchi and wheezes. Breath sounds are equal bilaterally but diminished throughout. There are no crackles. Abdomen soft bowel sounds are heard. No masses or tenderness. Extremities are intact. No cyanosis clubbing or edema. Skin is without rash or lesion. Neurologic examination is brief but nonfocal. Results - Laboratory Findings CBC and BMP: 07/27/24 14:33 07/27/24 14:33 PT/INR, D-dimer PT 10.4 sec (10.0-12.5) 07/27/24 14:33 INR 0.9 (<1.2) 07/27/24 14:33 Abnormal lab findings: Abnormal Labs 07/27/24 07/27/24 14:33 14:33 WBC 11.36 H MCV 101.2 H MCH 32.3 H Immature Gran # 0.12 H Neutrophils # 7.97 H Carbon Dioxide 38 H Creatinine 1.10 H - Diagnostic Findings Chest x-ray: image reviewed Assessment and Plan Assessment: Acute hypoxemic respiratory failure secondary to a COPD exacerbation. History of severe/stage III COPD with an FEV1 that is 40% of predicted. Chronic hypoxemic respiratory failure, on home O2 at 4 to 4.5 L. Recent admission to the hospital for similar episode, July 05 - July 08. History of gastroesophageal reflux disease. History of hyperlipidemia. History of sleep apnea syndrome. Previous history of right nephrectomy for hypernephroma. History of anxiety/depression. Former tobacco smoker. Plan: Plan dated July 28, 2024. Patient appears to be on appropriate medications. She is on budesonide 1 mg, formoterol 20 mcg, Solu-Medrol, and DuoNebs. Labs, x-rays, and medications are reviewed. Her chest x-ray is unchanged. We will continue to follow make recommendations along the way. The patient no longer smokes. She does use home O2 at about 4 L/min. Currently, her major issue is shortness of breath with any activity. She has only had this for 1 day. She was recently hospitalized between July 05, and July 08. Labs, x-rays, and all medications are reviewed. We will continue to follow make recommendations. Prognosis is guarded. Dictation was produced using daysoftation software. Please excuse any grammatical, word or spelling errors. Time with Patient: Greater than 30
[2024-07-28 10:01] LABS: Basophils # (A) 0.02 X 10*3/uL (0.00-0.10); Basophils % (A) 0.2 %; Eosinophils # (A) 0 X 10*3/uL (0.04-0.35); Eosinophils % (A) 0 %; HCT 41.4 % (37.2-46.3); HGB 12.5 g/dL (12.0-15.0); Lymphocytes # (A) 1.44 X 10*3/uL (0.90-5.00); Lymphocytes % (A) 12.7 %; MCH 30.8 pg (27.0-32.0); MCHC 30.2 g/dL (32.0-37.0); Monocytes # (A) 0.49 X 10*3/uL (0.20-1.00); Monocytes % (A) 4.3 %; NRBC Per 100 WBC 0 X 10*3/uL (0.00-0.01); Neutrophils # (A) 9.25 X 10*3/uL (1.80-7.70); Neutrophils % (A) 81.8 %; Platelet Count 187 X 10*3/uL (140-440); RBC 4.06 X 10*6/uL (4.10-5.20); RDW 13.6 % (11.5-14.5); WBC 11.31 X 10*3/uL (4.50-10.00)
[2024-07-28 10:02] LABS: Magnesium 1.5 mg/dL (1.5-2.4); Phosphorus 3.6 mg/dL (2.4-5.1)
[2024-07-28 10:31] LABS: ALT 13 U/L (8-44); AST 25 U/L (13-35); Albumin 3.5 g/dL (3.8-4.9); Albumin/Globulin Ratio 1.67 Ratio (1.60-3.17); Alkaline Phosphatase 79 U/L (41-126); Blood Urea Nitrogen 14.6 mg/dL (9.0-27.0); Calcium 9.2 mg/dL (8.7-10.3); Carbon Dioxide 31.1 mmol/L (21.6-31.8); Chloride 102 mmol/L (96-109); Globulin 2.1 g/dL (1.6-3.3); Glucose 117 mg/dL (70-110); Potassium 4.9 mmol/L (3.5-5.5); Sodium 142 mmol/L (135-145); Total Bilirubin <0.2 mg/dL (0.3-1.2); Total Protein 5.6 g/dL (6.2-8.2)
[2024-07-28] MEDS: hydrALAZINE HCL 10 MG TAB PO SCH (12:06)
[2024-07-28] MEDS: cloNIDine HCL 0.1 MG TAB PO SCH (12:06)
[2024-07-28] MEDS: ALPRAZolam 0.5 MG TAB PO PRN (15:01)
--- NOTE | 2024-07-28 16:59 | P.HPIM ---
History of Present Illness H&P Date: 07/28/24 Chief Complaint: Cough/shortness of breath 63-year-old female, history of asthma/COPD, hyperlipidemia, sleep apnea, present to the emergency department with concerns with difficulty breathing. Onset of symptoms was yesterday, worse last couple hours. No fever. No cough. Patient does have history of similar symptoms previously associated with COPD. Patient is on 4-1/2 L home O2. Current laboratory data includes a white count of 11.4, hemoglobin 13.9, hematocrit 43.5, and a normal platelet count. Sodium 142, potassium 4.8, chlorides 100, CO2 38, BUN 17, creatinine 1.10. Liver function test are normal. Viral screen was negative. Chest x-ray showed nothing acute. Review of Systems REVIEW OF SYSTEMS: CONSTITUTIONAL: No fever, no malaise, no fatigue. HEENT: No recent visual problems or hearing problems. Denied any sore throat. CARDIOVASCULAR: No chest pain, orthopnea, PND, no palpitations, no syncope. PULMONARY: No shortness of breath, no cough, no hemoptysis. GASTROINTESTINAL: No diarrhea, no nausea, no vomiting, no abdominal pain. NEUROLOGICAL: No headaches, no weakness, no numbness. HEMATOLOGICAL: Denies any bleeding or petechiae. GENITOURINARY: Denies any burning micturition, frequency, or urgency. MUSCULOSKELETAL/RHEUMATOLOGICAL: Denies any joint pain, swelling, or any muscle pain. ENDOCRINE: Denies any polyuria or polydipsia. The rest of the 14-point review of systems is negative. Past Medical History Past Medical History: Asthma, COPD, GERD/Reflux, Hyperlipidemia, Liver Disease, Sleep Apnea/CPAP/BIPAP Additional Past Medical History / Comment(s): hx internal hemorrhoid, kidney CA with right nephrectomy, CPAP use, colitis, IBS History of Any Multi-Drug Resistant Organisms: None Reported Past Surgical History: Hysterectomy Additional Past Surgical History / Comment(s): right nephrectomy 04/11/22 Past Anesthesia/Blood Transfusion Reactions: No Reported Reaction Past Psychological History: Anxiety, Bipolar, Depression Smoking Status: Former smoker Past Alcohol Use History: None Reported Past Drug Use History: None Reported - Past Family History Father Family Medical History: COPD, Hyperlipidemia, Hypertension Mother Family Medical History: COPD, Hyperlipidemia, Hypertension Medications and Allergies Home Medications Medication Instructions Recorded Confirmed Type Ziprasidone [Geodon] 40 mg PO DAILY@0500 02/07/14 07/27/24 History Albuterol Inhaler [Ventolin Hfa 2 puff INHALATION RT-Q6H PRN 11/07/17 07/27/24 History Inhaler] Atorvastatin Calcium [Lipitor] 40 mg PO HS@1700 07/03/22 07/27/24 History Levothyroxine Sodium [Synthroid] 112 mcg PO DAILY@05007/03/22 07/27/24 History Ziprasidone [Geodon] 60 mg PO HS@17007/03/22 07/27/24 History buPROPion HCL [Wellbutrin SR] 200 mg PO BID@0500,169907/03/22 07/27/24 History Propranolol [Inderal] 20 mg PO BID@0500,169903/14/23 07/27/24 History HYDROcodone/APAP 7.5-325MG [Beckley 1 tab PO Q8H PRN 09/09/23 07/27/24 History 7.5-325] Ipratropium-Albuterol Nebulize 3 ml INHALATION RT-QID 09/09/23 07/27/24 History [Duoneb 0.5 mg-3 mg/3 ml Soln] Magnesium Oxide [Mag-Ox] 400 mg PO BID@0500,169909/09/23 07/27/24 History Pantoprazole [Protonix] 40 mg PO DAILY@05009/09/23 07/27/24 History ALPRAZolam [Xanax] 0.5 mg PO DAILY PRN 04/17/24 07/27/24 History Budesonide 0.5 mg INHALATION RT-BID@0500,169904/17/24 07/27/24 History Multivitamins, Thera [Multivitamin 1 tab PO DAILY@05004/17/24 07/27/24 History (formulary)] cloNIDine HCL [Catapres] 0.1 mg PO TID@0500,1100,169904/17/24 07/27/24 History hydrALAZINE HCL [Apresoline] 10 mg PO TID@0500,1100,1700 04/17/24 07/27/24 History Formoterol Fumarate [Perforomist] 20 mcg INHALATION RT-BID@0500,1700 07/27/24 07/27/24 History Metamucil Gummy 1 tab PO HS@1700 07/27/24 07/27/24 History Sennosides [Senokot] 8.6 mg PO DAILY PRN 07/27/24 07/27/24 History Allergies Allergy/AdvReac Type Severity Reaction Status Date / Time codeine Allergy Rash/Hives Verified 07/27/24 17:15 doxycycline Allergy Rash/Hives Verified 07/27/24 17:15 Penicillins Allergy Rash/Hives Verified 07/27/24 17:15 on feet Sulfa (Sulfonamide Allergy Rash/Hives Verified 07/27/24 17:15 Antibiotics) ibuprofen [From Motrin] AdvReac Nausea & Verified 07/27/24 17:15 Vomiting Physical Exam Vitals: Vital Signs Temp Pulse Pulse Resp BP BP Pulse Ox 07/28/24 07:52 97.9 F 103 H 16 112/63 94 L 07/28/24 01:23 98.3 F 119 H 17 136/80 94 L 07/27/24 22:51 121 H 17 07/27/24 22:44 98.3 F 121 H 17 147/86 90 L 07/27/24 22:00 116 H 18 138/79 90 L 07/27/24 21:00 120 H 18 138/79 90 L 07/27/24 20:43 98.2 F 118 H 18 105/77 90 L 07/27/24 20:00 110 H 20 105/77 91 L 07/27/24 19:52 115 H 07/27/24 19:43 89 L 07/27/24 19:39 112 H 07/27/24 18:51 105 H 20 138/80 90 L 07/27/24 17:00 108 H 20 133/90 92 L 07/27/24 16:37 104 H 07/27/24 16:26 104 H 07/27/24 16:19 103 H 20 152/96 93 L 07/27/24 14:40 103 H 24 135/110 91 L 07/27/24 14:35 106 H 07/27/24 14:24 104 H 07/27/24 14:17 97.8 F 107 H 46 H 165/109 77 L 07/27/24 14:16 40 H Intake and Output 07/27/24 07/28/24 07/28/24 22:59 06:59 14:59 Output Total 860 Balance -860 Output: Urine 860 Other: Voiding Method Bedside Commode External Catheter # Voids 1 1 Weight 71.668 kg General appearance: alert, in no apparent distress Head exam: Present: atraumatic, normocephalic, normal inspection Eye exam: Present: normal appearance, PERRL, EOMI. Absent: scleral icterus, conjunctival injection, periorbital swelling ENT exam: Present: normal exam, mucous membranes moist Neck exam: Present: normal inspection. Absent: tenderness, meningismus, lymphadenopathy Respiratory exam: Present: respiratory distress, wheezes, accessory muscle use, decreased breath sounds, prolonged expiratory. Absent: rales, rhonchi, stridor Cardiovascular Exam: Present: regular rate, normal rhythm, normal heart sounds. Absent: systolic murmur, diastolic murmur, rubs, gallop, clicks GI/Abdominal exam: Present: soft, normal bowel sounds. Absent: distended, tenderness, guarding, rebound, rigid Extremities exam: Present: normal inspection, full ROM, normal capillary refill. Absent: tenderness, pedal edema, joint swelling, calf tenderness Back exam: Present: normal inspection Neurological exam: Present: alert, oriented X3, CN II-XII intact Psychiatric exam: Present: normal affect, normal mood Skin exam: Present: warm, dry, intact, normal color. Absent: rash Results CBC & Chem 7: 07/28/24 05:39 07/28/24 05:39 Labs: Abnormal Lab Results - Last 24 Hours (Table) 07/27/24 07/27/24 Range/Units 14:33 14:33 WBC 11.36 H (4.50-10.00) 10*3/uL MCV 101.2 H (80.0-97.0) fL MCH 32.3 H (27.0-32.0) pg Immature Gran # 0.12 H (0.00-0.04) 10*3/uL Neutrophils # 7.97 H (1.80-7.70) 10*3/uL Carbon Dioxide 38 H (22-30) mmol/L Creatinine 1.10 H (0.52-1.04) mg/dL Thrombosis Risk Factor Assmnt - Choose All That Apply Any of the Below Risk Factors Present?: No Assessment and Plan Assessment: 1. Acute hypoxic respiratory failure likely related to COPD exacerbation - Patient is usually on his O2 at 4 to 4.5 L per nasal cannula; titrate or wean as able 2. Acute exacerbation COPD History of severe/stage III COPD with an FEV1 that is 40% of predicted. - Patient remains on IV Solu-Medrol; budesonide 1 mg and formoterol 20 mcg - Bronchodilator nebulizer treatments 4 times daily and as needed - Pulmonary is consulted 3. Hypertension; clonidine 0.1 mg 3 times daily; hydralazine 10 mg 3 times man y 4. Hyperlipidemia; Lipitor 40 mg p.o. nightly 5. Hypothyroidism; continue Synthroid 112 mcg daily 6. Sleep apnea syndrome 7. Anxiety/depression; Xanax 0.5 mg daily DVT prophylaxis; SCDs CODE STATUS; full code
[2024-07-28] MEDS: MAGNESIUM OXIDE 400 MG TAB PO SCH (17:29)
[2024-07-28] MEDS: buPROPion SR 100 MG TABLET.ER PO SCH (17:29)
[2024-07-28] MEDS: ATORVASTATIN 40 MG TAB PO SCH (17:29)
[2024-07-28] MEDS: PROPRANOLOL 20 MG TAB PO SCH (17:29)
[2024-07-28] MEDS: ZIPRASIDONE 60 MG CAP PO SCH (17:30)
[2024-07-29] MEDS: ZIPRASIDONE 40 MG CAP PO SCH (05:16)
[2024-07-29] MEDS: MULTIVITAMINS, THERA 1 EACH TAB PO SCH (05:16)
[2024-07-29] MEDS: LEVOTHYROXINE 112 MCG TAB PO SCH (05:16)
[2024-07-29] MEDS: PANTOPRAZOLE 40 MG TABLET PO SCH (06:24)
[2024-07-29] MEDS: HYDROcodone/APAP 7.5-325MG 1 EACH TAB PO PRN (08:04)
[2024-07-29 08:29] LABS: BUN/Creat Ratio 17.36 Ratio (12.00-20.00); Blood Urea Nitrogen 19.1 mg/dL (9.0-27.0); Calcium 9.1 mg/dL (8.7-10.3); Carbon Dioxide 28.1 mmol/L (21.6-31.8); Chloride 105 mmol/L (96-109); Glucose 189 mg/dL (70-110); Potassium 4.4 mmol/L (3.5-5.5); Sodium 145 mmol/L (135-145)
[2024-07-29 08:37] LABS: Basophils # (A) 0.03 X 10*3/uL (0.00-0.10); Basophils % (A) 0.2 %; Eosinophils # (A) 0 X 10*3/uL (0.04-0.35); Eosinophils % (A) 0 %; HCT 42.6 % (37.2-46.3); HGB 12.6 g/dL (12.0-15.0); Lymphocytes # (A) 0.94 X 10*3/uL (0.90-5.00); Lymphocytes % (A) 6.9 %; MCHC 29.6 g/dL (32.0-37.0); MCV 104.7 FL (80.0-97.0); Mean Platelet Volume 12.8 FL (9.5-12.2); Monocytes # (A) 0.25 X 10*3/uL (0.20-1.00); Monocytes % (A) 1.8 %; NRBC Per 100 WBC 0 X 10*3/uL (0.00-0.01); Neutrophils # (A) 12.12 X 10*3/uL (1.80-7.70); Neutrophils % (A) 89.6 %; Platelet Count 174 X 10*3/uL (140-440); RBC 4.07 X 10*6/uL (4.10-5.20); RDW 13.7 % (11.5-14.5); WBC 13.54 X 10*3/uL (4.50-10.00)
--- NOTE | 2024-07-29 13:56 | P.PN ---
Subjective Progress Note Date: 07/29/24 On 07/29/2024, seen the patient for a follow-up. Patient is being seen for an acute COPD exacerbation. Feeling better compared to yesterday. She remains on DuoNeb updrafts. She is also on a combination of Perforomist and Pulmicort neb regimen twice a day and she is on a IV Solu-Medrol 60 mg every 6 hours. The white cell count is at 13.5 with a hemoglobin of 12 and a platelet count of 174. Sodium level is at 145 with a potassium level of 4.4, BUN is at 19 with a creatinine of 1.1. No chest pain. No pleurisy. No hemoptysis. Chest x-ray from time of admission shows no evidence of any acute cardiopulmonary process. The patient is resting comfortably in bed. No other significant events overn ight. Objective - Vital Signs Vital signs: Vital Signs Temp 98.5 F 07/29/24 07:22 Pulse 100 07/29/24 10:08 Resp 20 07/29/24 07:22 BP 135/64 07/29/24 07:22 Pulse Ox 91 L 07/29/24 09:48 FiO2 Intake & Output 07/28/24 07/29/24 07/29/24 18:59 06:59 18:59 Other: Voiding Method Bedside Commode Bedside Commode # Voids 1 4 - Exam No acute distress, oriented 3. No conversational dyspnea, audible wheezing, or use of accessory muscles. HEENT examination is grossly unremarkable. Mucous membranes are moist. No oral lesions. Neck supple. Full range of motion. No adenopathy thyromegaly or neck vein distention. Cardiovascular examination reveals regular rhythm rate. S1-S2 normal. No S3 or S4. No discernible murmur noted. Heart sounds are distant. Lungs reveal bilateral expiratory rhonchi and wheezes. Breath sounds are equal bilaterally but diminished throughout. There are no crackles. Abdomen soft bowel sounds are heard. No masses or tenderness. Extremities are intact. No cyanosis clubbing or edema. Skin is without rash or lesion. Neurologic examination is brief but nonfocal. - Labs CBC & Chem 7: 07/29/24 03:23 07/29/24 03:23 Labs: Abnormal Lab Results - Last 24 Hours (Table) 07/29/24 07/29/24 Range/Units 03:23 03:23 WBC 13.54 H (4.50-10.00) X 10*3/uL RBC 4.07 L (4.10-5.20) X 10*6/uL MCV 104.7 H (80.0-97.0) FL MCHC 29.6 L (32.0-37.0) g/dL MPV 12.8 H (9.5-12.2) FL Immature Gran # 0.20 H (0.00-0.04) X 10*3/uL Neutrophils # 12.12 H (1.80-7.70) X 10*3/uL Eosinophils # 0 L (0.04-0.35) X 10*3/uL Est GFR (CKD-EPI) 56 L (>=60) Glucose 189 H (70-110) mg/dL Assessment and Plan Plan: Acute hypoxemic respiratory failure secondary to a COPD exacerbation, currently on 2 L of oxygen by nasal cannula History of severe/stage III COPD with an FEV1 that is 40% of predicted. Chronic hypoxemic respiratory failure, on home O2 Recent admission to the hospital for similar episode, July 05 - July 08. History of gastroesophageal reflux disease. History of hyperlipidemia. History of sleep apnea syndrome. Previous history of right nephrectomy for hypernephroma. History of anxiety/depression. Former tobacco smoker. Plan Clinically improving. Chest x-ray was reviewed. Titrate oxygen flow to maintain saturation above 90% Continue bronchodilators Continue performance of Pulmicort neb regimen twice a day IV Solu-Medrol Blood work is within normal limits Viral screen is negative Will continue to follow Time with Patient: Greater than 30
[2024-07-29] MEDS: ALPRAZolam 0.5 MG TAB PO PRN (17:50)
[2024-07-29] MEDS: SENNOSIDES 8.6 MG TAB PO PRN (20:39)
--- NOTE | 2024-07-30 05:56 | P.PN ---
Subjective Progress Note Date: 07/29/24 63-year-old female, history of asthma/COPD, hyperlipidemia, sleep apnea, present to the emergency department with concerns with difficulty breathing. Onset of symptoms was yesterday, worse last couple hours. No fever. No cough. Patient does have history of similar symptoms previously associated with COPD. Patient is on 4-1/2 L home O2. Current laboratory data includes a white count of 11.4, hemoglobin 13.9, hematocrit 43.5, and a normal platelet count. Sodium 142, potassium 4.8, chlorides 100, CO2 38, BUN 17, creatinine 1.10. Liver function test are normal. Viral screen was negative. Chest x-ray showed nothing acute. 07/29/2024 Patient seen in follow-up today currently sitting up in the chair down to 5 L and chronically wears 4 L outpatient. Pulmonary following and maintained on IV steroids along with Pulmicort performers along with DuoNeb treatments aroun d-the-clock. Patient continues to report significant dyspnea with minimal exertion and reports she desats quickly and takes an extended period of time to recover. Patient does have CPAP in the home and reports she is unable to use as she has difficulty with frequent urination at night which makes it difficult for her to take her CPAP mask off and on resulting in incontinence. Patient is afebrile with no reports of chest pain or palpitations. Patient tolerating diet with no reported nausea or vomiting. Review of systems: Constitutional: No reports of fatigue, fever, or chills Cardiovascular: No reports of chest pain or palpitations Respiratory: reports of continued shortness of breath with cough GI: No reports of nausea, vomiting, or diarrhea : No reports of dysuria or retention Neurovascular: No reports of weakness or numbness All medications have been reviewed Physical exam: Gen: This is a 63-year-old female who is awake, alert and oriented x 3, well- developed, elderly appearing, ill-appearing HEENT: Head is atraumatic, normocephalic. Pupils equal, round. Sclerae is anict mitzi. NECK: Supple. No JVD. No lymphadenopathy. No thyromegaly. LUNGS: Diminished breath sounds bilaterally with a few expiratory wheezes noted along with coarse scattered rhonchi. No intercostal retractions. HEART: Regular rate and rhythm. No murmur. ABDOMEN: Soft. Bowel sounds are present. No masses. No tenderness. EXTREMITIES: No pedal edema. No calf tenderness. NEUROLOGICAL: Patient is awake, alert and oriented x3. Cranial nerves 2 through 12 are grossly intact. Assessment: -Acute hypoxic respiratory failure secondary to COPD exacerbation, patient chronically wears 4 to 4-1/2 L outpatient -Acute exacerbation COPD with history of severe/stage III COPD with an FEV1 that is 40% of predicted. -Hypertension -Hyperlipidemia -Hypothyroidism- -Sleep apnea syndrome able to wear CPAP at home -Anxiety/depression GI prophylaxis DVT prophylaxis; SCDs CODE STATUS; full code Plan: Patient is admitted for COPD with acute on chronic hypoxia currently weaning FiO2 as tolerated. Patient is maintained on 5 L and will continue as she chronically wears 4-4-1/2 outpatient Encourage increase activity as tolerated Encourage small frequent meals Follow-up on repeat labs and replace electrolytes per protocol Pulmonary following we will continue on DuoNebs along with Perforomist and Pulmicort and IV steroids Due to multiple complex medical issues, overall prognosis is guarded The impression and plan of care has been dictated by Peri Mg, Nurse Practitioner as directed. Dr. Monico MD I have performed a history and examination and MDM of this patient, discussed the same with the dictator, and agree with the dictator's assessment and plan as written ,documented as a scribe. Based on total visit time, I have performed more than 50% of the visit. Thank Objective - Vital Signs Vital signs: Vital Signs Temp 98.5 F 07/29/24 07:22 Pulse 98 07/29/24 07:22 Resp 20 07/29/24 07:22 BP 135/64 07/29/24 07:22 Pulse Ox 95 07/29/24 08:05 FiO2 Intake & Output 07/28/24 07/29/24 07/29/24 18:59 06:59 18:59 Other: Voiding Method Bedside Commode Bedside Commode # Voids 1 4 - Labs CBC & Chem 7: 07/29/24 03:23 07/29/24 03:23 Labs: Abnormal Lab Results - Last 24 Hours (Table) 07/28/24 07/28/24 07/29/24 Range/Units 05:39 05:39 03:23 WBC 11.31 H 13.54 H (4.50-10.00) X 10*3/uL RBC 4.06 L 4.07 L (4.10-5.20) X 10*6/uL MCV 102.0 H 104.7 H (80.0-97.0) FL MCHC 30.2 L 29.6 L (32.0-37.0) g/dL MPV 13.0 H 12.8 H (9.5-12.2) FL Immature Gran # 0.11 H 0.20 H (0.00-0.04) X 10*3/uL Neutrophils # 9.25 H 12.12 H (1.80-7.70) X 10*3/uL Eosinophils # 0 L 0 L (0.04-0.35) X 10*3/uL Est GFR (CKD-EPI) (>=60) Glucose 117 H (70-110) mg/dL Total Bilirubin <0.2 L (0.3-1.2) mg/dL Total Protein 5.6 L (6.2-8.2) g/dL Albumin 3.5 L (3.8-4.9) g/dL 07/29/24 Range/Units 03:23 WBC (4.50-10.00) X 10*3/uL RBC (4.10-5.20) X 10*6/uL MCV (80.0-97.0) FL MCHC (32.0-37.0) g/dL MPV (9.5-12.2) FL Immature Gran # (0.00-0.04) X 10*3/uL Neutrophils # (1.80-7.70) X 10*3/uL Eosinophils # (0.04-0.35) X 10*3/uL Est GFR (CKD-EPI) 56 L (>=60) Glucose 189 H (70-110) mg/dL Total Bilirubin (0.3-1.2) mg/dL Total Protein (6.2-8.2) g/dL Albumin (3.8-4.9) g/dL
[2024-07-30 08:45] LABS: BUN/Creat Ratio 24.91 Ratio (12.00-20.00); Blood Urea Nitrogen 27.4 mg/dL (9.0-27.0); Calcium 8.4 mg/dL (8.7-10.3); Chloride 103 mmol/L (96-109); Glucose 97 mg/dL (70-110); Potassium 4.4 mmol/L (3.5-5.5); Sodium 140 mmol/L (135-145)
--- NOTE | 2024-07-30 11:03 | P.PN ---
Subjective Progress Note Date: 07/30/24 On 07/29/2024, seen the patient for a follow-up. Patient is being seen for an acute COPD exacerbation. Feeling better compared to yesterday. She remains on DuoNeb updrafts. She is also on a combination of Perforomist and Pulmicort neb regimen twice a day and she is on a IV Solu-Medrol 60 mg every 6 hours. The white cell count is at 13.5 with a hemoglobin of 12 and a platelet count of 174. Sodium level is at 145 with a potassium level of 4.4, BUN is at 19 with a creatinine of 1.1. No chest pain. No pleurisy. No hemoptysis. Chest x-ray from time of admission shows no evidence of any acute cardiopulmonary process. The patient is resting comfortably in bed. No other significant events overn ight. On today's evaluation of 07/30/2024, the patient is feeling better. Continues to have some cough and congestion. Overall less bronchospastic and wheezy over the past 24 hours. She remains on 4 L of oxygen by nasal cannula. She is a dentulous. No oropharyngeal candidiasis. No pleurisy. No hemoptysis. The sodium level is at 140 with a potassium level of 4.4, BUN 27 with a creatinine of 1.1. No other significant events over the past 24 hours. Medication remains unchanged. The patient is on DuoNeb updrafts, Perforomist and Pulmicort nebulized treatments twice a day and IV Solu-Medrol 60 mg every 6 hours. Objective - Vital Signs Vital signs: Vital Signs Temp 98.2 F 07/30/24 07:33 Pulse 74 07/30/24 09:02 Resp 17 07/30/24 07:33 BP 132/77 07/30/24 07:33 Pulse Ox 95 07/30/24 07:33 FiO2 Intake & Output 07/29/24 07/30/24 07/30/24 18:59 06:59 18:59 Intake Total 600 1620 Balance 600 1620 Intake: Intake, IV Titration 600 Amount Sodium Chloride 0.9% 1, 600 000 ml @ 75 mls/hr IV . [id number] [facility] Rx#:[id number] Oral 1620 Other: Voiding Method Bedside Commode # Voids 3 5 # Bowel Movements 1 - Exam No acute distress, oriented 3. No conversational dyspnea, audible wheezing, or use of accessory muscles. HEENT examination is grossly unremarkable. Mucous membranes are moist. No oral lesions. Neck supple. Full range of motion. No adenopathy thyromegaly or neck vein distention. Cardiovascular examination reveals regular rhythm rate. S1-S2 normal. No S3 or S4. No discernible murmur noted. Heart sounds are distant. Lungs reveal bilateral expiratory rhonchi and wheezes. Breath sounds are equal bilaterally but diminished throughout. There are no crackles. Abdomen soft bowel sounds are heard. No masses or tenderness. Extremities are intact. No cyanosis clubbing or edema. Skin is without rash or lesion. Neurologic examination is brief but nonfocal. - Labs CBC & Chem 7: 07/29/24 03:23 07/30/24 03:18 Labs: Abnormal Lab Results - Last 24 Hours (Table) 07/30/24 Range/Units 03:18 BUN 27.4 H (9.0-27.0) mg/dL Est GFR (CKD-EPI) 56 L (>=60) BUN/Creatinine Ratio 24.91 H (12.00-20.00) Ratio Calcium 8.4 L (8.7-10.3) mg/dL Assessment and Plan Plan: Acute hypoxemic respiratory failure secondary to a COPD exacerbation, currently on 4 L of oxygen by nasal cannula History of severe/stage III COPD with an FEV1 that is 40% of predicted. Chronic hypoxemic respiratory failure, on home O2 Recent admission to the hospital for similar episode, July 05 - July 08. History of gastroesophageal reflux disease. History of hyperlipidemia. History of sleep apnea syndrome. Previous history of right nephrectomy for hypernephroma. History of anxiety/depression. Former tobacco smoker. Plan Clinically improving. Chest x-ray was reviewed. Titrate oxygen flow to maintain saturation above 90% Continue bronchodilators Continue performance of Pulmicort neb regimen twice a day IV Solu-Medrol for another 24 hours and switch the patient to a prednisone burst taper as of tomorrow Blood work is within normal limits Viral screen is negative Will continue to follow Time with Patient: Greater than 30
[2024-07-30] MEDS ORDERED: bisacodyL 5 MG TABLET.DR PO PRN (22:47)
[2024-07-31] MEDS: polyethylene glycoL 3350 17 GM POWD.PACK PO SCH (03:17)
--- NOTE | 2024-07-31 05:44 | P.PN ---
Subjective Progress Note Date: 07/30/24 63-year-old female, history of asthma/COPD, hyperlipidemia, sleep apnea, present to the emergency department with concerns with difficulty breathing. Onset of symptoms was yesterday, worse last couple hours. No fever. No cough. Patient does have history of similar symptoms previously associated with COPD. Patient is on 4-1/2 L home O2. Current laboratory data includes a white count of 11.4, hemoglobin 13.9, hematocrit 43.5, and a normal platelet count. Sodium 142, potassium 4.8, chlorides 100, CO2 38, BUN 17, creatinine 1.10. Liver function test are normal. Viral screen was negative. Chest x-ray showed nothing acute. 07/29/2024 Patient seen in follow-up today currently sitting up in the chair down to 5 L and chronically wears 4 L outpatient. Pulmonary following and maintained on IV steroids along with Pulmicort performers along with DuoNeb treatments aroun d-the-clock. Patient continues to report significant dyspnea with minimal exertion and reports she desats quickly and takes an extended period of time to recover. Patient does have CPAP in the home and reports she is unable to use as she has difficulty with frequent urination at night which makes it difficult for her to take her CPAP mask off and on resulting in incontinence. Patient is afebrile with no reports of chest pain or palpitations. Patient tolerating diet with no reported nausea or vomiting. 07/30/2024 Patient is seen and evaluated in follow-up with pulmonary following currently maintained on 4-1/2 L working on weaning FiO2 as tolerated. Patient continues to be quite dyspneic with minimal exertion and frequently removes oxygen which causes prolonged recovery. Patient reports she feels she is not quite back to her baseline and continues to report significant shortness of breath. Patient has been encouraged to increase activity as tolerated and sit up in the chair more often. Patient is reporting some mild constipation although reports she is having very small bowel movements. Will add Dulcolax as needed as well as MiraLAX. Patient is afebrile with no reported chest pain or palpitations. Patient is continued on DuoNebs and IV steroids and will continue. Not quite ready for discharge. Review of systems: Constitutional: No reports of fatigue, fever, or chills Cardiovascular: No reports of chest pain or palpitations Respiratory: reports of continued shortness of breath with cough GI: No reports of nausea, vomiting, or diarrhea, reports some mild constipation : No reports of dysuria or retention Neurovascular: No reports of weakness or numbness All medications have been reviewed Physical exam: Gen: This is a 63-year-old female who is awake, alert and oriented x 3, well- developed, elderly appearing, ill-appearing HEENT: Head is atraumatic, normocephalic. Pupils equal, round. Sclerae is anicteric. NECK: Supple. No JVD. No lymphadenopathy. No thyromegaly. LUNGS: Diminished breath sounds bilaterally with a few expiratory wheezes noted along with coarse scattered rhonchi. No intercostal retractions. HEART: Regular rate and rhythm. No murmur. ABDOMEN: Soft. Bowel sounds are present. No masses. No tenderness. EXTREMITIES: No pedal edema. No calf tenderness. NEUROLOGICAL: Patient is awake, alert and oriented x3. Cranial nerves 2 through 12 are grossly intact. Assessment: -Acute hypoxic respiratory failure secondary to COPD exacerbation, patient chronically wears 4 to 4-1/2 L outpatient -Acute exacerbation COPD with history of severe/stage III COPD with an FEV1 that is 40% of predicted. -Hypertension -Hyperlipidemia -Hypothyroidism -Sleep apnea syndrome able to wear CPAP at home -Anxiety/depression GI prophylaxis DVT prophylaxis; SCDs CODE STATUS; full code Plan: Patient is admitted for COPD with acute on chronic hypoxia currently weaning FiO2 as tolerated. Patient is maintained on 4.5-5 L and will continue as she chronically wears 4-4-1/2 outpatient Encourage increase activity as tolerated Encourage small frequent meals Patient is reporting some mild constipation although was able to have a small bowel movement yesterday and today, will add as needed bowel regimen Follow-up on repeat labs and replace electrolytes per protocol Pulmonary following we will continue on DuoNebs along with Perforomist and Pulmicort and IV steroids Due to multiple complex medical issues, overall prognosis is guarded The impression and plan of care has been dictated by Peri Mg, Nurse Practitioner as directed. Dr. Monico MD I have performed a history and examination and MDM of this patient, discussed the same with the dictator, and agree with the dictator's assessment and plan as written ,documented as a scribe. Based on total visit time, I have performed more than 50% of the visit. Thank Objective - Vital Signs Vital signs: Vital Signs Temp 97.9 F 07/31/24 01:10 Pulse 78 07/31/24 05:32 Resp 16 07/31/24 01:10 BP 129/78 07/31/24 05:32 Pulse Ox 96 07/31/24 05:32 FiO2 Intake & Output 07/30/24 07/30/24 07/31/24 06:59 18:59 06:59 Intake Total 1620 200 Balance 1620 200 Intake: Oral 1620 200 Other: Voiding Method Bedside Commode Bedside Commode Bedside Commode # Voids 5 3 - Labs CBC & Chem 7: 07/29/24 03:23 07/30/24 03:18 Labs: Abnormal Lab Results - Last 24 Hours (Table) 07/30/24 Range/Units 03:18 BUN 27.4 H (9.0-27.0) mg/dL Est GFR (CKD-EPI) 56 L (>=60) BUN/Creatinine Ratio 24.91 H (12.00-20.00) Ratio Calcium 8.4 L (8.7-10.3) mg/dL
--- NOTE | 2024-07-31 11:53 | XR ---
EXAMINATION TYPE: XR chest 1V DATE OF EXAM: 07/31/2024 COMPARISON: 07/27/2024 CLINICAL INDICATION: Female, 63 years old with history of hypoxia; TECHNIQUE: Single frontal view of the chest is obtained. FINDINGS: Heart borderline enlarged. Improvement in the previous medial right lower lung/right infra hilar opacity. Scattered interstitial densities remain. Patchy retrocardiac opacity remains. No pleur al effusion. IMPRESSION: Borderline heart size and scattered interstitial changes. Consider bronchitis or asthma. Improving right infrahilar/medial right lower lung opacity. Patchy airspace disease in the retrocard iac region remains. [facility], Workstation: [facility], 07/31/2024 11:50 AM
--- NOTE | 2024-07-31 16:04 | P.PN ---
Subjective Progress Note Date: 07/31/24 On 07/29/2024, seen the patient for a follow-up. Patient is being seen for an acute COPD exacerbation. Feeling better compared to yesterday. She remains on DuoNeb updrafts. She is also on a combination of Perforomist and Pulmicort neb regimen twice a day and she is on a IV Solu-Medrol 60 mg every 6 hours. The white cell count is at 13.5 with a hemoglobin of 12 and a platelet count of 174. Sodium level is at 145 with a potassium level of 4.4, BUN is at 19 with a creatinine of 1.1. No chest pain. No pleurisy. No hemoptysis. Chest x-ray from time of admission shows no evidence of any acute cardiopulmonary process. The patient is resting comfortably in bed. No other significant events overn ight. On today's evaluation of 07/30/2024, the patient is feeling better. Continues to have some cough and congestion. Overall less bronchospastic and wheezy over the past 24 hours. She remains on 4 L of oxygen by nasal cannula. She is a dentulous. No oropharyngeal candidiasis. No pleurisy. No hemoptysis. The sodium level is at 140 with a potassium level of 4.4, BUN 27 with a creatinine of 1.1. No other significant events over the past 24 hours. Medication remains unchanged. The patient is on DuoNeb updrafts, Perforomist and Pulmicort nebulized treatments twice a day and IV Solu-Medrol 60 mg every 6 hours. On 07/31/2024, I am seeing the patient for a follow-up. Last night, the patient had an episode of desaturation and tachycardia and some of worsening shortness of breath. She was placed on a facemask and currently she is back to oxygen at 4 L/min nasal cannula. Based on those events, repeat chest x-ray was done and the patient has evidence of COPD and chronic bronchitis. There is improvement in the right infrahilar and right lower lobe pulmonary opacity/infiltration and there is some patchy airspace disease in the retrocardiac area which remains unchanged. Meanwhile, the patient has had no recent CBC from today. Electrolytes are all within normal limits. BUN is 27 with a creatinine of 1.1. She is calm and comfortable. Slightly anxious. She is on a IV Solu-Medrol 60 mg every 6 hours. She is on DuoNeb updrafts. She is also on a combination Perforomist and Pulmicort nebulized treatments twice a day. Rest of the psychiatric medications remain unchanged. Objective - Vital Signs Vital signs: Vital Signs Temp 98.2 F 07/31/24 07:50 Pulse 104 H 07/31/24 09:49 Resp 18 07/31/24 08:18 BP 133/80 07/31/24 07:50 Pulse Ox 95 07/31/24 07:50 FiO2 Intake & Output 07/30/24 07/31/24 07/31/24 18:59 06:59 18:59 Intake Total 200 1250 Balance 200 1250 Intake: Oral 200 1250 Other: Voiding Method Bedside Commode Bedside Commode # Voids 3 3 2 # Bowel Movements 1 - Exam No acute distress, oriented 3. No conversational dyspnea, audible wheezing, or use of accessory muscles. HEENT examination is grossly unremarkable. Mucous membranes are moist. No oral lesions. Neck supple. Full range of motion. No adenopathy thyromegaly or neck vein distention. Cardiovascular examination reveals regular rhythm rate. S1-S2 normal. No S3 or S4. No discernible murmur noted. Heart sounds are distant. Lungs reveal bilateral expiratory rhonchi and wheezes. Breath sounds are equal bilaterally but diminished throughout. There are no crackles. Abdomen soft bowel sounds are heard. No masses or tenderness. Extremities are intact. No cyanosis clubbing or edema. Skin is without rash or lesion. Neurologic examination is brief but nonfocal. - Labs CBC & Chem 7: 07/29/24 03:23 07/30/24 03:18 Assessment and Plan Plan: Acute hypoxemic respiratory failure secondary to a COPD exacerbation, currently on 4 L of oxygen by nasal cannula History of severe/stage III COPD with an FEV1 that is 40% of predicted. Chronic hypoxemic respiratory failure, on home O2 Recent admission to the hospital for similar episode, July 05 - July 08. History of gastroesophageal reflux disease. History of hyperlipidemia. History of sleep apnea syndrome. Previous history of right nephrectomy for hypernephroma. History of anxiety/depression. Former tobacco smoker. Plan Clinically improving. Chest x-ray was reviewed. There is improvement in the right lower lobe pulmonary infiltrates. Some limited atelectatic changes are still present in the left lung base. Oxygenation remained stable and the patient remains on 4 L of oxygen by nasal cannula. The plan is to continue the same treatment for now. Titrate oxygen flow to maintain saturation above 90% Continue bronchodilators Continue performance of Pulmicort neb regimen twice a day IV Solu-Medrol 60 mg IV every 6 hours Blood work is within normal limits Viral screen is negative Will continue to follow
--- NOTE | 2024-08-01 03:20 | P.PN ---
Subjective Progress Note Date: 07/31/24 63-year-old female, history of asthma/COPD, hyperlipidemia, sleep apnea, present to the emergency department with concerns with difficulty breathing. Onset of symptoms was yesterday, worse last couple hours. No fever. No cough. Patient does have history of similar symptoms previously associated with COPD. Patient is on 4-1/2 L home O2. Current laboratory data includes a white count of 11.4, hemoglobin 13.9, hematocrit 43.5, and a normal platelet count. Sodium 142, potassium 4.8, chlorides 100, CO2 38, BUN 17, creatinine 1.10. Liver function test are normal. Viral screen was negative. Chest x-ray showed nothing acute. 07/29/2024 Patient seen in follow-up today currently sitting up in the chair down to 5 L and chronically wears 4 L outpatient. Pulmonary following and maintained on IV steroids along with Pulmicort performers along with DuoNeb treatments aroun d-the-clock. Patient continues to report significant dyspnea with minimal exertion and reports she desats quickly and takes an extended period of time to recover. Patient does have CPAP in the home and reports she is unable to use as she has difficulty with frequent urination at night which makes it difficult for her to take her CPAP mask off and on resulting in incontinence. Patient is afebrile with no reports of chest pain or palpitations. Patient tolerating diet with no reported nausea or vomiting. 07/30/2024 Patient is seen and evaluated in follow-up with pulmonary following currently maintained on 4-1/2 L working on weaning FiO2 as tolerated. Patient continues to be quite dyspneic with minimal exertion and frequently removes oxygen which causes prolonged recovery. Patient reports she feels she is not quite back to her baseline and continues to report significant shortness of breath. Patient has been encouraged to increase activity as tolerated and sit up in the chair more often. Patient is reporting some mild constipation although reports she is having very small bowel movements. Will add Dulcolax as needed as well as MiraLAX. Patient is afebrile with no reported chest pain or palpitations. Patient is continued on DuoNebs and IV steroids and will continue. Not quite ready for discharge. 07/31/2024 Patient being followed by pulmonary maintained on 4-1/2 to 5 L continues to be extremely dyspneic with minimal exertion. Recommend increased activity as tolerated. Plan will be for return home on discharge. Patient white count is elevated likely secondary to steroids. Pulmonary following and will continue current regimen. Discussion of possible discharge planning in the next 24 hours. Review of systems: Constitutional: No reports of fatigue, fever, or chills Cardiovascular: No reports of chest pain or palpitations Respiratory: reports of continued shortness of breath with cough GI: No reports of nausea, vomiting, or diarrhea, reports some mild constipation : No reports of dysuria or retention Neurovascular: No reports of weakness or numbness All medications have been reviewed Physical exam: Gen: This is a 63-year-old female who is awake, alert and oriented x 3, well- developed, elderly appearing, ill-appearing HEENT: Head is atraumatic, normocephalic. Pupils equal, round. Sclerae is anicteric. NECK: Supple. No JVD. No lymphadenopathy. No thyromegaly. LUNGS: Diminished breath sounds bilaterally with a few expiratory wheezes noted along with coarse scattered rhonchi. No intercostal retractions. HEART: Regular rate and rhythm. No murmur. ABDOMEN: Soft. Bowel sounds are present. No masses. No tenderness. EXTREMITIES: No pedal edema. No calf tenderness. NEUROLOGICAL: Patient is awake, alert and oriented x3. Cranial nerves 2 through 12 are grossly intact. Assessment: -Acute hypoxic respiratory failure secondary to COPD exacerbation, patient chronically wears 4 to 4-1/2 L outpatient -Acute exacerbation COPD with history of severe/stage III COPD with an FEV1 that is 40% of predicted. -Hypertension -Hyperlipidemia -Hypothyroidism -Sleep apnea syndrome able to wear CPAP at home -Anxiety/depression GI prophylaxis DVT prophylaxis; SCDs CODE STATUS; full code Plan: Patient is admitted for COPD with acute on chronic hypoxia currently weaning FiO2 as tolerated. Patient is maintained on 4.5-5 L and will continue as she c hronically wears 4-4-1/2 outpatient Encourage increase activity as tolerated Encourage small frequent meals Patient is reporting to having bowel movement and will continue as needed bowel regimen as well as scheduled Follow-up on repeat labs and replace electrolytes per protocol Pulmonary following we will continue on DuoNebs along with Perforomist and Pulmicort and IV steroids. Discuss further regarding discharge planning with pulmonary. Due to multiple complex medical issues, overall prognosis is guarded The impression and plan of care has been dictated by Peri Mg, Nurse Practitioner as directed. Dr. Monico MD I have performed a history and examination and MDM of this patient, discussed the same with the dictator, and agree with the dictator's assessment and plan as written ,documented as a scribe. Based on total visit time, I have performed more than 50% of the visit. Thank Objective - Vital Signs Vital signs: Vital Signs Temp 97.7 F 08/01/24 00:45 Pulse 86 08/01/24 00:45 Resp 18 08/01/24 00:45 BP 122/75 08/01/24 00:45 Pulse Ox 93 L 08/01/24 00:45 FiO2 Intake & Output 07/31/24 07/31/24 08/01/24 06:59 18:59 06:59 Intake Total 1250 Balance 1250 Intake: Oral 1250 Other: Voiding Method Bedside Commode Bedside Commode # Voids 3 2 # Bowel Movements 1 - Labs CBC & Chem 7: 07/29/24 03:23 07/30/24 03:18
[2024-08-01 08:17] LABS: BUN/Creat Ratio 29.33 Ratio (12.00-20.00); Blood Urea Nitrogen 35.2 mg/dL (9.0-27.0); Calcium 8.3 mg/dL (8.7-10.3); Carbon Dioxide 28.9 mmol/L (21.6-31.8); Chloride 107 mmol/L (96-109); Glucose 115 mg/dL (70-110); Potassium 4.3 mmol/L (3.5-5.5); Sodium 145 mmol/L (135-145)
[2024-08-01 14:31] VITALS: BMI 28.9
[2024-08-01] MEDS: ALPRAZolam 0.5 MG TAB PO PRN (14:59)
--- NOTE | 2024-08-01 15:35 | P.PN ---
Subjective Progress Note Date: 08/01/24 On 07/29/2024, seen the patient for a follow-up. Patient is being seen for an acute COPD exacerbation. Feeling better compared to yesterday. She remains on DuoNeb updrafts. She is also on a combination of Perforomist and Pulmicort neb regimen twice a day and she is on a IV Solu-Medrol 60 mg every 6 hours. The white cell count is at 13.5 with a hemoglobin of 12 and a platelet count of 174. Sodium level is at 145 with a potassium level of 4.4, BUN is at 19 with a creatinine of 1.1. No chest pain. No pleurisy. No hemoptysis. Chest x-ray from time of admission shows no evidence of any acute cardiopulmonary process. The patient is resting comfortably in bed. No other significant events overn ight. On today's evaluation of 07/30/2024, the patient is feeling better. Continues to have some cough and congestion. Overall less bronchospastic and wheezy over the past 24 hours. She remains on 4 L of oxygen by nasal cannula. She is a dentulous. No oropharyngeal candidiasis. No pleurisy. No hemoptysis. The sodium level is at 140 with a potassium level of 4.4, BUN 27 with a creatinine of 1.1. No other significant events over the past 24 hours. Medication remains unchanged. The patient is on DuoNeb updrafts, Perforomist and Pulmicort nebulized treatments twice a day and IV Solu-Medrol 60 mg every 6 hours. On 07/31/2024, I am seeing the patient for a follow-up. Last night, the patient had an episode of desaturation and tachycardia and some of worsening shortness of breath. She was placed on a facemask and currently she is back to oxygen at 4 L/min nasal cannula. Based on those events, repeat chest x-ray was done and the patient has evidence of COPD and chronic bronchitis. There is improvement in the right infrahilar and right lower lobe pulmonary opacity/infiltration and there is some patchy airspace disease in the retrocardiac area which remains unchanged. Meanwhile, the patient has had no recent CBC from today. Electrolytes are all within normal limits. BUN is 27 with a creatinine of 1.1. She is calm and comfortable. Slightly anxious. She is on a IV Solu-Medrol 60 mg every 6 hours. She is on DuoNeb updrafts. She is also on a combination Perforomist and Pulmicort nebulized treatments twice a day. Rest of the psychiatric medications remain unchanged. 08/01/2024, the patient is being seen for a follow-up. The patient is complaining of some soreness in her chest pressure with exertion. Otherwise, she is being treated for an acute CF exacerbation. She seems to be less bronchospastic and wheezy. No significant sputum production. She remains on 40 of oxygen by nasal cannula. No hemoptysis. No pleurisy. BUN 35 with a creatinine of 1.2 and the rest of electrolytes are all within normal limits. She remains on DuoNeb nebulizer treatments [id number], IV Solu-Medrol, Perforomist and Pulmicort nebulization twice a day and the rest of her medications are essentially unchanged. Blood pressure is stable and the patient remains on 40 selection by nasal cannula with a pulse ox of 92%. A repeat chest x-ray from yesterday showed no significant changes. The patient has some chronic atelectatic changes right lung base which remains essentially unchanged. Echocardiogram was ordered. Objective - Vital Signs Vital signs: Vital Signs Temp 97.9 F 08/01/24 07:00 Pulse 87 08/01/24 09:33 Resp 17 08/01/24 07:00 BP 132/81 08/01/24 07:00 Pulse Ox 93 L 08/01/24 09:11 FiO2 Intake & Output 07/31/24 08/01/24 08/01/24 18:59 06:59 18:59 Intake Total 500 Balance 500 Intake: Oral 500 Other: Voiding Method Bedside Commode # Voids 2 2 1 # Bowel Movements 1 1 - Exam No acute distress, oriented 3. No conversational dyspnea, audible wheezing, or use of accessory muscles. HEENT examination is grossly unremarkable. Mucous membranes are moist. No oral lesions. Neck supple. Full range of motion. No adenopathy thyromegaly or neck vein distention. Cardiovascular examination reveals regular rhythm rate. S1-S2 normal. No S3 or S4. No discernible murmur noted. Heart sounds are distant. Lungs reveal bilateral expiratory rhonchi and wheezes. Breath sounds are equal bilaterally but diminished throughout. There are no crackles. Abdomen soft bowel sounds are heard. No masses or tenderness. Extremities are intact. No cyanosis clubbing or edema. Skin is without rash or lesion. Neurologic examination is brief but nonfocal. - Labs CBC & Chem 7: 07/29/24 03:23 08/01/24 04:37 Labs: Abnormal Lab Results - Last 24 Hours (Table) 08/01/24 Range/Units 04:37 BUN 35.2 H (9.0-27.0) mg/dL Est GFR (CKD-EPI) 51 L (>=60) BUN/Creatinine Ratio 29.33 H (12.00-20.00) Ratio Glucose 115 H (70-110) mg/dL Calcium 8.3 L (8.7-10.3) mg/dL Assessment and Plan Plan: Acute hypoxemic respiratory failure secondary to a COPD exacerbation, currently on 4 L of oxygen by nasal cannula. Less short of breath. Complaining of exertional chest pain. No radiation. No diaphoresis. No cardiac arrhythmias. No previous history of coronary artery disease. History of severe/stage III COPD with an FEV1 that is 40% of predicted. Chronic hypoxemic respiratory failure, on home O2 Recent admission to the hospital for similar episode, July 05 - July 08. History of gastroesophageal reflux disease. History of hyperlipidemia. History of sleep apnea syndrome. Previous history of right nephrectomy for hypernephroma. History of anxiety/depression. Former tobacco smoker. Plan Nonspecific chest pain. Will obtain echocardiogram Clinically improving. Chest x-ray was reviewed. There is improvement in the right lower lobe pulmonary infiltrates. Some limited atelectatic changes are still present in the left lung base. Oxygenation remained stable and the patient remains on 4 L of oxygen by nasal cannula. The plan is to continue the same treatment for now. Titrate oxygen flow to maintain saturation above 90% Continue bronchodilators Continue performance of Pulmicort neb regimen twice a day IV Solu-Medrol 60 mg IV every 6 hours and I am going to transition the patient to a prednisone burst taper as of tomorrow Blood work is within normal limits Viral screen is negative Will continue to follow
--- NOTE | 2024-08-02 08:37 | CA ---
Transthoracic Echo Report Name: Velia Azevedo Age: 63 Gender: F : 1960 Exam Date: 08/01/2024 13:04 Exam Location: [place] [facility] Ht (in): 62 Wt (lb): 158 Ordering Physician: Peri Friend MD Attending/Referring Phys: Credit Checker Steph Guajardo RDCS Procedure CPT: Indications: Chest Pain Cardiac Hx: COPD, Asthma Technical Quality: Good Contrast 1: Total Dose (mL): Contrast 2: Total Dose (mL): MEASUREMENTS (Male / Female) Normal Values 2D ECHO LV Diastolic Diameter PLAX 5.6 cm 4.2 - 5.9 / 3.9 - 5.3 cm IVS Diastolic Thickness 1.0 cm 0.6 - 1.0 / 0.6 - 0.9 cm LVPW Diastolic Thickness 1.0 cm 0.6 - 1.0 / 0.6 - 0.9 cm LV Relative Wall Thickness 0.4 RV Internal Dim ED PLAX 2.9 cm LVOT Diameter 2.2 cm LA Systolic Diameter LX 3.9 cm 3.0 - 4.0 / 2.7 - 3.8 cm LV Diastolic Volume MOD 4C 71.0 cm??? LV Systolic Volume MOD 4C 18.9 cm??? LV Ejection Fraction MOD 4C 73.3 % LV Cardiac Index MOD 4C 2582.8 cm???/min???m??? LV Diastolic Length 4C 7.7 cm LV Systolic Length 4C 6.0 cm LA Volume 43.9 cm??? 18 - 58 / 22 - 52 cm??? LA Volume Index 24.5 cm???/m??? 16 - 28 cm???/m??? M-MODE LV Diastolic Diameter MM 6.8 cm 4.2 - 5.9 / 3.9 - 5.3 cm LV Systolic Diameter MM 4.6 cm LV Cardiac Index MM Teich 7149.4 cm???/min???m??? IVS Diastolic Thickness MM 1.2 cm 0.6 - 1.0 / 0.6 - 0.9 cm LVPW Diastolic Thickness MM 1.2 cm 0.6 - 1.0 / 0.6 - 0.9 cm LV Relative Wall Thickness MM 0.3 0.24 - 0.42 / 0.22 - 0.42 LV Mass Index MM 214.9 g/m??? 49 - 115 / 43 - 95 g/m??? DOPPLER MV Area PHT 4.8 cm??? Mitral E Point Velocity 59.8 cm/s Mitral A Point Velocity 116.1 cm/s Mitral E to A Ratio 0.5 MV Deceleration Time 159.1 ms TV Peak Velocity 297.8 cm/s TR Peak Velocity 355.2 cm/s TR Peak Gradient 50.5 mmHg Right Atrial Pressure 10.0 mmHg Pulmonary Artery Systolic Pressu 60.5 mmHg Right Ventricular Systolic Press 60.5 mmHg FINDINGS Left Ventricle Left ventricular ejection fraction is estimated at 55-60 %. Severely increased left ventricular mass. No obvious regional wall motion abnormalities. Left ventricular wall thickness normal. Right Ventricle Normal right ventricular size and function. Moderate to severe pulmonary hypertension. Right Atrium Normal right atrial size. Left Atrium Mildly increased left atrial diameter. Mitral Valve Structurally normal mitral valve. No mitral stenosis. Trace mitral regurgitation. Aortic Valve Aortic valve not well visualized. No aortic stenosis. Mild aortic regurgitation. Tricuspid Valve Tricuspid valve not well visualized. Pulmonic Valve Pulmonic valve not well visualized. No pulmonic stenosis. Trace pulmonic regurgitation. Pericardium No pericardial effusion. Aorta Normal size aortic root and proximal ascending aorta. CONCLUSIONS Technically somewhat difficult study valvular structures are not very well- seen. Doppler exam therefore is somewhat suboptimal. Right-sided pressure quantification is also suboptimal. Grossly left ventricle systolic function is normal with aortic valve sclerosis and mitral annular calcification Previewed by: Dr. Amador Meza MD (Electronically Signed) Final Date: 02 Aug 2024 08:36
--- NOTE | 2024-08-02 08:42 | P.PN ---
Subjective Progress Note Date: 08/01/24 63-year-old female, history of asthma/COPD, hyperlipidemia, sleep apnea, present to the emergency department with concerns with difficulty breathing. Onset of symptoms was yesterday, worse last couple hours. No fever. No cough. Patient does have history of similar symptoms previously associated with COPD. Patient is on 4-1/2 L home O2. Current laboratory data includes a white count of 11.4, hemoglobin 13.9, hematocrit 43.5, and a normal platelet count. Sodium 142, potassium 4.8, chlorides 100, CO2 38, BUN 17, creatinine 1.10. Liver function test are normal. Viral screen was negative. Chest x-ray showed nothing acute. 07/29/2024 Patient seen in follow-up today currently sitting up in the chair down to 5 L and chronically wears 4 L outpatient. Pulmonary following and maintained on IV steroids along with Pulmicort performers along with DuoNeb treatments aroun d-the-clock. Patient continues to report significant dyspnea with minimal exertion and reports she desats quickly and takes an extended period of time to recover. Patient does have CPAP in the home and reports she is unable to use as she has difficulty with frequent urination at night which makes it difficult for her to take her CPAP mask off and on resulting in incontinence. Patient is afebrile with no reports of chest pain or palpitations. Patient tolerating diet with no reported nausea or vomiting. 07/30/2024 Patient is seen and evaluated in follow-up with pulmonary following currently maintained on 4-1/2 L working on weaning FiO2 as tolerated. Patient continues to be quite dyspneic with minimal exertion and frequently removes oxygen which causes prolonged recovery. Patient reports she feels she is not quite back to her baseline and continues to report significant shortness of breath. Patient has been encouraged to increase activity as tolerated and sit up in the chair more often. Patient is reporting some mild constipation although reports she is having very small bowel movements. Will add Dulcolax as needed as well as MiraLAX. Patient is afebrile with no reported chest pain or palpitations. Patient is continued on DuoNebs and IV steroids and will continue. Not quite ready for discharge. 07/31/2024 Patient being followed by pulmonary maintained on 4-1/2 to 5 L continues to be extremely dyspneic with minimal exertion. Recommend increased activity as tolerated. Plan will be for return home on discharge. Patient white count is elevated likely secondary to steroids. Pulmonary following and will continue current regimen. Discussion of possible discharge planning in the next 24 hours. 08/01/2024 Patient seen in follow up today with pulmonary following closely. Slightly improved aeration today although patient continues to be dyspneic. Patient reports she did have an episode of mild chest pain most likely secondary to continued bronchial cough although 2D echo was ordered per pulmonary and pending at this time. Patient continues to titrate between 4, 4-1/2 to 5 L of oxygen and chronically wears 4-4-1/2 in the outpatient setting. Patient has been encouraged to increase activity as tolerated and walk around the room more frequently. Currently working on walking to the bathroom [id number] although reports she does become exerted having to take breaks frequently. Plan is for patient to return home on discharge. Review of systems: Constitutional: No reports of fatigue, fever, or chills Cardiovascular: reports of 1 brief episode of chest pain, denies palpitations Respiratory: reports of continued shortness of breath with cough GI: No reports of nausea, vomiting, or diarrhea, reports some mild constipation : No reports of dysuria or retention Neurovascular: No reports of weakness or numbness All medications have been reviewed Physical exam: Gen: This is a 63-year-old female who is awake, alert and oriented x 3, well-developed, elderly appearing, ill-appearing HEENT: Head is atraumatic, normocephalic. Pupils equal, round. Sclerae is anicteric. NECK: Supple. No JVD. No lymphadenopathy. No thyromegaly. LUNGS: Diminished breath sounds bilaterally with a few expiratory wheezes noted along with coarse scattered rhonchi. No intercostal retractions. HEART: Regular rate and rhythm. No murmur. ABDOMEN: Soft. Bowel sounds are present. No masses. No tenderness. EXTREMITIES: No pedal edema. No calf tenderness. NEUROLOGICAL: Patient is awake, alert and oriented x3. Cranial nerves 2 through 12 are grossly intact. Assessment: -Acute hypoxic respiratory failure secondary to COPD exacerbation, patient chronically wears 4 to 4-1/2 L outpatient -Acute exacerbation COPD with history of severe/stage III COPD with an FEV1 that is 40% of predicted. -Hypertension -Hyperlipidemia -Hypothyroidism -Sleep apnea syndrome able to wear CPAP at home -Anxiety/depression GI prophylaxis DVT prophylaxis; SCDs CODE STATUS; full code Plan: Patient is admitted for COPD with acute on chronic hypoxia currently weaning FiO2 as tolerated. Patient is maintained on 4.5-5 L and will continue as she chronically wears 4-4-1/2 outpatient Encourage increase activity as tolerated, patient is working on walking to the bathroom more frequently although continues to be exerted taking frequent breaks. Encourage small frequent meals Patient is reporting to having bowel movement and will continue as needed bowel regimen Follow-up on repeat labs and replace electrolytes per protocol Pulmonary following we will continue on DuoNebs along with Perforomist and Pulmicort and IV steroids. Possibly titrate to oral prednisone starting farhan orrow 08/02/2024. Discuss further regarding discharge planning with pulmonary. Atypical chest pain noted likely secondary to her bronchial cough and pulmonary has ordered 2D echo. Patient denies any further chest pain on exam. Due to multiple complex medical issues, overall prognosis is guarded Possible discharge planning in the next 24 to 48 hours. The impression and plan of care has been dictated by Peri Mg, Nurse Practitioner as directed. Dr. Monico MD I have performed a history and examination and MDM of this patient, discussed the same with the dictator, and agree with the dictator's assessment and plan as written ,documented as a scribe. Based on total visit time, I have performed more than 50% of the visit. Thank Objective - Vital Signs Vital signs: Vital Signs Temp 98.6 F 08/01/24 14:05 Pulse 92 08/01/24 15:47 Resp 17 08/01/24 14:05 BP 133/73 08/01/24 14:05 Pulse Ox 92 L 08/01/24 14:05 FiO2 Intake & Output 07/31/24 08/01/24 08/01/24 18:59 06:59 18:59 Intake Total 500 Balance 500 Weight 71.668 kg Intake: Oral 500 Other: Voiding Method Bedside Commode # Voids 2 2 1 # Bowel Movements 1 1 - Labs CBC & Chem 7: 07/29/24 03:23 08/01/24 04:37 Labs: Abnormal Lab Results - Last 24 Hours (Table) 08/01/24 Range/Units 04:37 BUN 35.2 H (9.0-27.0) mg/dL Est GFR (CKD-EPI) 51 L (>=60) BUN/Creatinine Ratio 29.33 H (12.00-20.00) Ratio Glucose 115 H (70-110) mg/dL Calcium 8.3 L (8.7-10.3) mg/dL
--- NOTE | 2024-08-02 16:49 | P.PN ---
Subjective Progress Note Date: 08/02/24 On 07/29/2024, seen the patient for a follow-up. Patient is being seen for an acute COPD exacerbation. Feeling better compared to yesterday. She remains on DuoNeb updrafts. She is also on a combination of Perforomist and Pulmicort neb regimen twice a day and she is on a IV Solu-Medrol 60 mg every 6 hours. The white cell count is at 13.5 with a hemoglobin of 12 and a platelet count of 174. Sodium level is at 145 with a potassium level of 4.4, BUN is at 19 with a creatinine of 1.1. No chest pain. No pleurisy. No hemoptysis. Chest x-ray from time of admission shows no evidence of any acute cardiopulmonary process. The patient is resting comfortably in bed. No other significant events overn ight. On today's evaluation of 07/30/2024, the patient is feeling better. Continues to have some cough and congestion. Overall less bronchospastic and wheezy over the past 24 hours. She remains on 4 L of oxygen by nasal cannula. She is a dentulous. No oropharyngeal candidiasis. No pleurisy. No hemoptysis. The sodium level is at 140 with a potassium level of 4.4, BUN 27 with a creatinine of 1.1. No other significant events over the past 24 hours. Medication remains unchanged. The patient is on DuoNeb updrafts, Perforomist and Pulmicort nebulized treatments twice a day and IV Solu-Medrol 60 mg every 6 hours. On 07/31/2024, I am seeing the patient for a follow-up. Last night, the patient had an episode of desaturation and tachycardia and some of worsening shortness of breath. She was placed on a facemask and currently she is back to oxygen at 4 L/min nasal cannula. Based on those events, repeat chest x-ray was done and the patient has evidence of COPD and chronic bronchitis. There is improvement in the right infrahilar and right lower lobe pulmonary opacity/infiltration and there is some patchy airspace disease in the retrocardiac area which remains unchanged. Meanwhile, the patient has had no recent CBC from today. Electrolytes are all within normal limits. BUN is 27 with a creatinine of 1.1. She is calm and comfortable. Slightly anxious. She is on a IV Solu-Medrol 60 mg every 6 hours. She is on DuoNeb updrafts. She is also on a combination Perforomist and Pulmicort nebulized treatments twice a day. Rest of the psychiatric medications remain unchanged. 08/01/2024, the patient is being seen for a follow-up. The patient is complaining of some soreness in her chest pressure with exertion. Otherwise, she is being treated for an acute CF exacerbation. She seems to be less bronchospastic and wheezy. No significant sputum production. She remains on 40 of oxygen by nasal cannula. No hemoptysis. No pleurisy. BUN 35 with a creatinine of 1.2 and the rest of electrolytes are all within normal limits. She remains on DuoNeb nebulizer treatments [id number], IV Solu-Medrol, Perforomist and Pulmicort nebulization twice a day and the rest of her medications are essentially unchanged. Blood pressure is stable and the patient remains on 40 selection by nasal cannula with a pulse ox of 92%. A repeat chest x-ray from yesterday showed no significant changes. The patient has some chronic atelectatic changes right lung base which remains essentially unchanged. Echocardiogram was ordered. On today's evaluation of 08/02/2024, the patient remains on 4 L of oxygen by nasal cannula. No new complaints. The patient will be taken off the IV Solu- Medrol and started on a prednisone burst taper. She remains on DuoNeb updrafts. She remains on Perforomist and Pulmicort nebulized treatments twice a day. No new CBC from today. Electrolytes are all within normal limits with a BUN of 35 and a creatinine of 1.2. Echocardiogram showed normal LV function. No significant abnormalities identified. No segmental wall motion abnormalities. Objective - Vital Signs Vital signs: Vital Signs Temp 98.2 F 08/02/24 14:03 Pulse 96 08/02/24 15:43 Resp 20 08/02/24 15:33 BP 132/73 08/02/24 14:03 Pulse Ox 93 L 08/02/24 14:03 FiO2 Intake & Output 08/01/24 08/02/24 08/02/24 18:59 06:59 18:59 Weight 71.668 kg Other: Voiding Method Bedside Commode Bedside Commode # Voids 3 3 # Bowel Movements 1 - Exam No acute distress, oriented 3. No conversational dyspnea, audible wheezing, or use of accessory muscles. HEENT examination is grossly unremarkable. Mucous membranes are moist. No oral lesions. Neck supple. Full range of motion. No adenopathy thyromegaly or neck vein distention. Cardiovascular examination reveals regular rhythm rate. S1-S2 normal. No S3 or S4. No discernible murmur noted. Heart sounds are distant. Lungs reveal bilateral expiratory rhonchi and wheezes. Breath sounds are equal bilaterally but diminished throughout. There are no crackles. Abdomen soft bowel sounds are heard. No masses or tenderness. Extremities are intact. No cyanosis clubbing or edema. Skin is without rash or lesion. Neurologic examination is brief but nonfocal. - Labs CBC & Chem 7: 07/29/24 03:23 08/01/24 04:37 Assessment and Plan Plan: Acute hypoxemic respiratory failure secondary to a COPD exacerbation, currently on 4 L of oxygen by nasal cannula. Less short of breath. Complaining of exertional chest pain. No radiation. No diaphoresis. No cardiac arrhythmias. No previous history of coronary artery disease. History of severe/stage III COPD with an FEV1 that is 40% of predicted. Chronic hypoxemic respiratory failure, on home O2 Recent admission to the hospital for similar episode, July 05 - July 08. History of gastroesophageal reflux disease. History of hyperlipidemia. History of sleep apnea syndrome. Previous history of right nephrectomy for hypernephroma. History of anxiety/depression. Former tobacco smoker. Plan Nonspecific chest pain. Echocardiogram was within normal limits and the patient is free of any chest pain at this point. Clinically improving. Chest x-ray was reviewed. There is improvement in the right lower lobe pulmonary infiltrates. Some limited atelectatic changes are still present in the left lung base. Oxygenation remained stable and the patien t remains on 4 L of oxygen by nasal cannula. The plan is to continue the same treatment for now. Titrate oxygen flow to maintain saturation above 90% Continue bronchodilators Continue performance of Pulmicort neb regimen twice a day I stopped IV Solu-Medrol start the patient on prednisone burst taper Blood work is within normal limits Viral screen is negative Will continue to follow Time with Patient: Greater than 30
--- NOTE | 2024-08-03 08:10 | P.PN ---
Subjective Progress Note Date: 08/02/24 63-year-old female, history of asthma/COPD, hyperlipidemia, sleep apnea, present to the emergency department with concerns with difficulty breathing. Onset of symptoms was yesterday, worse last couple hours. No fever. No cough. Patient does have history of similar symptoms previously associated with COPD. Patient is on 4-1/2 L home O2. Current laboratory data includes a white count of 11.4, hemoglobin 13.9, hematocrit 43.5, and a normal platelet count. Sodium 142, potassium 4.8, chlorides 100, CO2 38, BUN 17, creatinine 1.10. Liver function test are normal. Viral screen was negative. Chest x-ray showed nothing acute. 07/29/2024 Patient seen in follow-up today currently sitting up in the chair down to 5 L and chronically wears 4 L outpatient. Pulmonary following and maintained on IV steroids along with Pulmicort performers along with DuoNeb treatments aroun d-the-clock. Patient continues to report significant dyspnea with minimal exertion and reports she desats quickly and takes an extended period of time to recover. Patient does have CPAP in the home and reports she is unable to use as she has difficulty with frequent urination at night which makes it difficult for her to take her CPAP mask off and on resulting in incontinence. Patient is afebrile with no reports of chest pain or palpitations. Patient tolerating diet with no reported nausea or vomiting. 07/30/2024 Patient is seen and evaluated in follow-up with pulmonary following currently maintained on 4-1/2 L working on weaning FiO2 as tolerated. Patient continues to be quite dyspneic with minimal exertion and frequently removes oxygen which causes prolonged recovery. Patient reports she feels she is not quite back to her baseline and continues to report significant shortness of breath. Patient has been encouraged to increase activity as tolerated and sit up in the chair more often. Patient is reporting some mild constipation although reports she is having very small bowel movements. Will add Dulcolax as needed as well as MiraLAX. Patient is afebrile with no reported chest pain or palpitations. Patient is continued on DuoNebs and IV steroids and will continue. Not quite ready for discharge. 07/31/2024 Patient being followed by pulmonary maintained on 4-1/2 to 5 L continues to be extremely dyspneic with minimal exertion. Recommend increased activity as tolerated. Plan will be for return home on discharge. Patient white count is elevated likely secondary to steroids. Pulmonary following and will continue current regimen. Discussion of possible discharge planning in the next 24 hours. 08/01/2024 Patient seen in follow up today with pulmonary following closely. Slightly improved aeration today although patient continues to be dyspneic. Patient reports she did have an episode of mild chest pain most likely secondary to continued bronchial cough although 2D echo was ordered per pulmonary and pending at this time. Patient continues to titrate between 4, 4-1/2 to 5 L of oxygen and chronically wears 4-4-1/2 in the outpatient setting. Patient has been encouraged to increase activity as tolerated and walk around the room more frequently. Currently working on walking to the bathroom [id number] although reports she does become exerted having to take breaks frequently. Plan is for patient to return home on discharge. 08/02/2024 Patient is seen and evaluated in follow-up reports to feeling improved and does have some shortness of breath with exertion although is improving and maintaining oxygen above 90% on 4 L. Patient has no ride available until tomorrow as her son is working in [employer] today. Patient will continue IV steroids and transition to oral prednisone starting tomorrow with pulmonary following. Plan is for discharge in 24 hours with close outpatient follow-up. Encouraged increase activity as tolerated. Review of systems: Constitutional: No reports of fatigue, fever, or chills Cardiovascular: reports of 1 brief episode of chest pain, denies palpitations Respiratory: reports of continued shortness of breath with cough although is improving and feels at baseline GI: No reports of nausea, vomiting, or diarrhea, reports having bowel movements : No reports of dysuria or retention Neurovascular: No reports of weakness or numbness All medications have been reviewed Physical exam: Gen: This is a 63-year-old female who is awake, alert and oriented x 3, well- developed, elderly appearing, ill-appearing HEENT: Head is atraumatic, normocephalic. Pupils equal, round. Sclerae is anicteric. NECK: Supple. No JVD. No lymphadenopathy. No thyromegaly. LUNGS: Diminished breath sounds bilaterally with a few expiratory wheezes noted along with coarse scattered rhonchi. No intercostal retractions. HEART: Regular rate and rhythm. No murmur. ABDOMEN: Soft. Bowel sounds are present. No masses. No tenderness. EXTREMITIES: No pedal edema. No calf tenderness. NEUROLOGICAL: Patient is awake, alert and oriented x3. Cranial nerves 2 through 12 are grossly intact. Assessment: -Acute hypoxic respiratory failure secondary to COPD exacerbation, patient chronically wears 4 to 4-1/2 L outpatient -Acute exacerbation COPD with history of severe/stage III COPD with an FEV1 that is 40% of predicted. -Hypertension -Hyperlipidemia -Hypothyroidism -Sleep apnea syndrome able to wear CPAP at home -Anxiety/depression GI prophylaxis DVT prophylaxis; SCDs CODE STATUS; full code Plan: Patient is admitted for COPD with acute on chronic hypoxia currently weaning FiO2 as tolerated. Patient is maintained on 4 to 4-1/2 L and will continue as she chronically wears this outpatient. Pulmonary following and will continue on DuoNebs along with IV steroids with plans on transitioning to oral prednisone starting tomorrow 08/03/2024. Prednisone taper has been sent to the pharmacy. Encourage increase activity as tolerated, patient is walking to the bathroom more frequently and continues to report exertion although at baseline Encourage small frequent meals Continue bowel regimen as needed Pulmonary following we will continue on DuoNebs along with Perforomist and Pulmicort and IV steroids. Patient will need outpatient follow-up with pulmonary on discharge Due to multiple complex medical issues, overall prognosis is guarded Patient had no ride available as her son was working in [employer] today and will discharge on 08/03/2024. The impression and plan of care has been dictated by Peri Mg, Nurse Practitioner as directed. Dr. Monico MD I have performed a history and examination and MDM of this patient, discussed the same with the dictator, and agree with the dictator's assessment and plan as written ,documented as a scribe. Based on total visit time, I have performed more than 50% of the visit. Thank Objective - Vital Signs Vital signs: Vital Signs Temp 97.7 F 08/02/24 01:51 Pulse 87 08/02/24 08:39 Resp 17 08/02/24 01:51 BP 155/88 08/02/24 05:04 Pulse Ox 94 L 08/02/24 08:27 FiO2 Intake & Output 08/01/24 08/02/24 08/02/24 18:59 06:59 18:59 Weight 71.668 kg Other: Voiding Method Bedside Commode # Voids 3 3 # Bowel Movements 1 - Labs CBC & Chem 7: 07/29/24 03:23 08/01/24 04:37
[2024-08-03] MEDS: predniSONE 20 MG TAB PO SCH (08:19)
--- NOTE | 2024-08-03 19:37 | P.PN ---
Subjective Progress Note Date: 08/03/24 On 07/29/2024, seen the patient for a follow-up. Patient is being seen for an acute COPD exacerbation. Feeling better compared to yesterday. She remains on DuoNeb updrafts. She is also on a combination of Perforomist and Pulmicort neb regimen twice a day and she is on a IV Solu-Medrol 60 mg every 6 hours. The white cell count is at 13.5 with a hemoglobin of 12 and a platelet count of 174. Sodium level is at 145 with a potassium level of 4.4, BUN is at 19 with a creatinine of 1.1. No chest pain. No pleurisy. No hemoptysis. Chest x-ray from time of admission shows no evidence of any acute cardiopulmonary process. The patient is resting comfortably in bed. No other significant events overn ight. On today's evaluation of 07/30/2024, the patient is feeling better. Continues to have some cough and congestion. Overall less bronchospastic and wheezy over the past 24 hours. She remains on 4 L of oxygen by nasal cannula. She is a dentulous. No oropharyngeal candidiasis. No pleurisy. No hemoptysis. The sodium level is at 140 with a potassium level of 4.4, BUN 27 with a creatinine of 1.1. No other significant events over the past 24 hours. Medication remains unchanged. The patient is on DuoNeb updrafts, Perforomist and Pulmicort nebulized treatments twice a day and IV Solu-Medrol 60 mg every 6 hours. On 07/31/2024, I am seeing the patient for a follow-up. Last night, the patient had an episode of desaturation and tachycardia and some of worsening shortness of breath. She was placed on a facemask and currently she is back to oxygen at 4 L/min nasal cannula. Based on those events, repeat chest x-ray was done and the patient has evidence of COPD and chronic bronchitis. There is improvement in the right infrahilar and right lower lobe pulmonary opacity/infiltration and there is some patchy airspace disease in the retrocardiac area which remains unchanged. Meanwhile, the patient has had no recent CBC from today. Electrolytes are all within normal limits. BUN is 27 with a creatinine of 1.1. She is calm and comfortable. Slightly anxious. She is on a IV Solu-Medrol 60 mg every 6 hours. She is on DuoNeb updrafts. She is also on a combination Perforomist and Pulmicort nebulized treatments twice a day. Rest of the psychiatric medications remain unchanged. 08/01/2024, the patient is being seen for a follow-up. The patient is complaining of some soreness in her chest pressure with exertion. Otherwise, she is being treated for an acute CF exacerbation. She seems to be less bronchospastic and wheezy. No significant sputum production. She remains on 40 of oxygen by nasal cannula. No hemoptysis. No pleurisy. BUN 35 with a creatinine of 1.2 and the rest of electrolytes are all within normal limits. She remains on DuoNeb nebulizer treatments [id number], IV Solu-Medrol, Perforomist and Pulmicort nebulization twice a day and the rest of her medications are essentially unchanged. Blood pressure is stable and the patient remains on 40 selection by nasal cannula with a pulse ox of 92%. A repeat chest x-ray from yesterday showed no significant changes. The patient has some chronic atelectatic changes right lung base which remains essentially unchanged. Echocardiogram was ordered. On today's evaluation of 08/02/2024, the patient remains on 4 L of oxygen by nasal cannula. No new complaints. The patient will be taken off the IV Solu- Medrol and started on a prednisone burst taper. She remains on DuoNeb updrafts. She remains on Perforomist and Pulmicort nebulized treatments twice a day. No new CBC from today. Electrolytes are all within normal limits with a BUN of 35 and a creatinine of 1.2. Echocardiogram showed normal LV function. No significant abnormalities identified. No segmental wall motion abnormalities. On 08/03/2024, the patient resting comfortably in bed. No specific complaints. She remains on DuoNeb. She remains on IV Solu-Medrol and the patient will be switched to prednisone burst taper starting with 40 mg p.o. daily. No fever. No chills. No nausea vomiting or diarrhea. No chest pain. Echo was within normal limits. No new labs are available from today. Objective - Vital Signs Vital signs: Vital Signs Temp 98.3 F 08/03/24 07:05 Pulse 90 08/03/24 11:50 Resp 18 08/03/24 11:50 BP 138/82 08/03/24 11:41 Pulse Ox 96 08/03/24 07:05 FiO2 Intake & Output 08/02/24 08/03/24 08/03/24 18:59 06:59 18:59 Other: Voiding Method Bedside Commode Bedside Commode # Voids 2 4 # Bowel Movements 2 - Exam No acute distress, oriented 3. No conversational dyspnea, audible wheezing, or use of accessory muscles. HEENT examination is grossly unremarkable. Mucous membranes are moist. No oral lesions. Neck supple. Full range of motion. No adenopathy thyromegaly or neck vein distention. Cardiovascular examination reveals regular rhythm rate. S1-S2 normal. No S3 or S4. No discernible murmur noted. Heart sounds are distant. Lungs reveal bilateral expiratory rhonchi and wheezes. Breath sounds are equal bilaterally but diminished throughout. There are no crackles. Abdomen soft bowel sounds are heard. No masses or tenderness. Extremities are intact. No cyanosis clubbing or edema. Skin is without rash or lesion. Neurologic examination is brief but nonfocal. - Labs CBC & Chem 7: 07/29/24 03:23 08/01/24 04:37 Assessment and Plan Plan: Acute hypoxemic respiratory failure secondary to a COPD exacerbation, currently on 4 L of oxygen by nasal cannula. Less short of breath. Complaining of exertional chest pain. No radiation. No diaphoresis. No cardiac arrhythmias. No previous history of coronary artery disease. History of severe/stage III COPD with an FEV1 that is 40% of predicted. Chronic hypoxemic respiratory failure, on home O2 Recent admission to the hospital for similar episode, July 05 - July 08. History of gastroesophageal reflux disease. History of hyperlipidemia. History of sleep apnea syndrome. Previous history of right nephrectomy for hypernephroma. History of anxiety/depression. Former tobacco smoker. Plan Clinically stable Remains on 4 L of oxygen by nasal cannula, oxygenation remains stable and unchanged Nonspecific chest pain. Echocardiogram was within normal limits and the patient is free of any chest pain at this point. Clinically improving. Continue bronchodilators Continue performance of Pulmicort neb regimen twice a day Start prednisone burst taper at a dose of 40 mg p.o. daily Viral screen is negative Will continue to follow
--- NOTE | 2024-08-03 23:44 | P.PN ---
Subjective Progress Note Date: 08/03/24 63-year-old female, history of asthma/COPD, hyperlipidemia, sleep apnea, present to the emergency department with concerns with difficulty breathing. Onset of symptoms was yesterday, worse last couple hours. No fever. No cough. Patient does have history of similar symptoms previously associated with COPD. Patient is on 4-1/2 L home O2. Current laboratory data includes a white count of 11.4, hemoglobin 13.9, hematocrit 43.5, and a normal platelet count. Sodium 142, potassium 4.8, chlorides 100, CO2 38, BUN 17, creatinine 1.10. Liver function test are normal. Viral screen was negative. Chest x-ray showed nothing acute. 07/29/2024 Patient seen in follow-up today currently sitting up in the chair down to 5 L and chronically wears 4 L outpatient. Pulmonary following and maintained on IV steroids along with Pulmicort performers along with DuoNeb treatments aroun d-the-clock. Patient continues to report significant dyspnea with minimal exertion and reports she desats quickly and takes an extended period of time to recover. Patient does have CPAP in the home and reports she is unable to use as she has difficulty with frequent urination at night which makes it difficult for her to take her CPAP mask off and on resulting in incontinence. Patient is afebrile with no reports of chest pain or palpitations. Patient tolerating diet with no reported nausea or vomiting. 07/30/2024 Patient is seen and evaluated in follow-up with pulmonary following currently maintained on 4-1/2 L working on weaning FiO2 as tolerated. Patient continues to be quite dyspneic with minimal exertion and frequently removes oxygen which causes prolonged recovery. Patient reports she feels she is not quite back to her baseline and continues to report significant shortness of breath. Patient has been encouraged to increase activity as tolerated and sit up in the chair more often. Patient is reporting some mild constipation although reports she is having very small bowel movements. Will add Dulcolax as needed as well as MiraLAX. Patient is afebrile with no reported chest pain or palpitations. Patient is continued on DuoNebs and IV steroids and will continue. Not quite ready for discharge. 07/31/2024 Patient being followed by pulmonary maintained on 4-1/2 to 5 L continues to be extremely dyspneic with minimal exertion. Recommend increased activity as tolerated. Plan will be for return home on discharge. Patient white count is elevated likely secondary to steroids. Pulmonary following and will continue current regimen. Discussion of possible discharge planning in the next 24 hours. 08/01/2024 Patient seen in follow up today with pulmonary following closely. Slightly improved aeration today although patient continues to be dyspneic. Patient reports she did have an episode of mild chest pain most likely secondary to continued bronchial cough although 2D echo was ordered per pulmonary and pending at this time. Patient continues to titrate between 4, 4-1/2 to 5 L of oxygen and chronically wears 4-4-1/2 in the outpatient setting. Patient has been encouraged to increase activity as tolerated and walk around the room more frequently. Currently working on walking to the bathroom [id number] although reports she does become exerted having to take breaks frequently. Plan is for patient to return home on discharge. 08/02/2024 Patient is seen and evaluated in follow-up reports to feeling improved and does have some shortness of breath with exertion although is improving and maintaining oxygen above 90% on 4 L. Patient has no ride available until tomorrow as her son is working in [employer] today. Patient will continue IV steroids and transition to oral prednisone starting tomorrow with pulmonary following. Plan is for discharge in 24 hours with close outpatient follow-up. Encouraged increase activity as tolerated. 08/03/2024 Patient is seen in follow-up today being followed by pulmonary initially felt ready to go home although later in the afternoon towards discharge patient became very anxious and fearful and nervous about going home and started reporting worsening shortness of breath. Will monitor overnight and discuss p ossible discharge planning in 24 hours. Pulmonary has evaluated the patient recommending outpatient follow-up and is being transitioned to oral prednisone along with continued treatments. Patient is at baseline on her breathing status and was noted to be above 93% on 4 L nasal cannula. Encouraged increase activity as tolerated. Review of systems: Constitutional: No reports of fatigue, fever, or chills, reports extreme anxiety Cardiovascular: reports of 1 brief episode of chest pain, denies palpitations Respiratory: reports of continued shortness of breath with cough although is improving and feels at baseline GI: No reports of nausea, vomiting, or diarrhea, reports having bowel movements : No reports of dysuria or retention Neurovascular: No reports of weakness or numbness All medications have been reviewed Physical exam: Gen: This is a 63-year-old female who is awake, alert and oriented x 3, well- developed, elderly appearing, ill-appearing, anxious HEENT: Head is atraumatic, normocephalic. Pupils equal, round. Sclerae is anicteric. NECK: Supple. No JVD. No lymphadenopathy. No thyromegaly. LUNGS: Diminished breath sounds bilaterally with a few expiratory wheezes noted along with coarse scattered rhonchi. No intercostal retractions. HEART: Regular rate and rhythm. No murmur. ABDOMEN: Soft. Bowel sounds are present. No masses. No tenderness. EXTREMITIES: No pedal edema. No calf tenderness. NEUROLOGICAL: Patient is awake, alert and oriented x3. Cranial nerves 2 through 12 are grossly intact. Assessment: -Acute hypoxic respiratory failure secondary to COPD exacerbation, patient chronically wears 4 to 4-1/2 L outpatient -Acute exacerbation COPD with history of severe/stage III COPD with an FEV1 that is 40% of predicted. -Hypertension -Hyperlipidemia -Hypothyroidism -Sleep apnea syndrome able to wear CPAP at home -Anxiety/depression GI prophylaxis DVT prophylaxis; SCDs CODE STATUS; full code Plan: Patient is admitted for COPD with acute on chronic hypoxia currently weaning FiO2 as tolerated. Patient is maintained on 4 to 4-1/2 L and will continue as she chronically wears this outpatient. Pulmonary following and will continue on DuoNebs and being transition to oral prednisone today. Patient was wearing 4 L all day until time of discharge when patient became increasingly anxious and more short of breath. Encourage increase activity as tolerated, patient is walking to the bathroom more frequently and continues to report exertion although at baseline Encourage small frequent meals Continue bowel regimen as needed Pulmonary following we will continue on DuoNebs along with Perforomist and Pulmicort and will transition to oral prednisone taper. Patient will need outpatient follow-up with pulmonary on discharge Due to multiple complex medical issues, overall prognosis is guarded Patient had no ride available as her son was working in [employer] today and will discharge on 08/03/2024. Today patient was scheduled for discharge although became extremely anxious reporting shortness of breath and will monitor overnight with possible discharge planning in the next 24 hours The impression and plan of care has been dictated as a scribe by Peri Mg, Nurse Practitioner as directed. Dr. Monico MD I have performed a history and examination and MDM of this patient, discussed the same with the dictator, and agree with the dictator's assessment and plan as written ,documented as a scribe. Based on total visit time, I have performed more than 50% of the visit. Thank Objective - Vital Signs Vital signs: Vital Signs Temp 98.3 F 08/03/24 14:00 Pulse 94 08/03/24 21:13 Resp 18 08/03/24 15:44 BP 147/81 08/03/24 16:50 Pulse Ox 93 L 08/03/24 14:00 FiO2 Intake & Output 08/03/24 08/03/24 08/04/24 06:59 18:59 06:59 Intake Total 200 Balance 200 Intake: Oral 200 Other: Voiding Method Bedside Commode Bedside Commode # Voids 4 4 # Bowel Movements 2 - Labs CBC & Chem 7: 07/29/24 03:23 08/01/24 04:37
[2024-08-04] MEDS: IPRATROPIUM-ALBUTEROL 3 ML NEB INHALATION PRN (00:51)
--- NOTE | 2024-08-04 14:01 | CT ---
EXAMINATION TYPE: CT chest angio for PE DATE OF EXAM: 08/04/2024 COMPARISON: 03/14/2020 CLINICAL INDICATION: Female, 63 years old with history of dyspnea; PHH, Dyspnea., SOB or PAIN TECHNIQUE: Ct angiogram of the chest performed with with IV Contrast, patient injected with 80 ml mL of Isovue 3 70. MIP images are created and reviewed. CT DLP: 383.[address] CTDI: mGy Automated exposure control for dose reduction was used. Findings: There is a thick bandlike opacity in the right lower lobe with bronchiectasis consistent with chronic atelectasis or interstitial scarring. There is marked bronchiectasis in the left lower lobe. There is no suspicious lung mass or nodule. There is no pleural effusion or pneumothorax. The main pulmonary artery is dilated to 3.5 cm. There are no filling defects within the pulmonary art erial circulation to suggest pulmonary embolism. There is no mediastinal, hilar or axillary adenopathy. Limited scanning through the upper abdomen reveals right nephrectomy and multiple left renal cysts. There has been interval development of multiple mild to severe compression deformities in the mid to lower thoracic spine and upper lumbar spine. IMPRESSION: 1. No evidence of pulmonary embolism. 2. 3.5 cm dilatation of the main pulmonary artery suggesting pulmonary hypertension. 3. Chronic lower lobe lung changes as described above. 4. No acute cardiopulmonary disease. 5. Interval development of multiple mild to severe compression fractures in the mid lower thoracic sp ine and upper lumbar spine. [facility], , 08/04/2024 1:59 PM
--- NOTE | 2024-08-04 14:29 | P.PN ---
Subjective Progress Note Date: 08/04/24 On 07/29/2024, seen the patient for a follow-up. Patient is being seen for an acute COPD exacerbation. Feeling better compared to yesterday. She remains on DuoNeb updrafts. She is also on a combination of Perforomist and Pulmicort neb regimen twice a day and she is on a IV Solu-Medrol 60 mg every 6 hours. The white cell count is at 13.5 with a hemoglobin of 12 and a platelet count of 174. Sodium level is at 145 with a potassium level of 4.4, BUN is at 19 with a creatinine of 1.1. No chest pain. No pleurisy. No hemoptysis. Chest x-ray from time of admission shows no evidence of any acute cardiopulmonary process. The patient is resting comfortably in bed. No other significant events overn ight. On today's evaluation of 07/30/2024, the patient is feeling better. Continues to have some cough and congestion. Overall less bronchospastic and wheezy over the past 24 hours. She remains on 4 L of oxygen by nasal cannula. She is a dentulous. No oropharyngeal candidiasis. No pleurisy. No hemoptysis. The sodium level is at 140 with a potassium level of 4.4, BUN 27 with a creatinine of 1.1. No other significant events over the past 24 hours. Medication remains unchanged. The patient is on DuoNeb updrafts, Perforomist and Pulmicort nebulized treatments twice a day and IV Solu-Medrol 60 mg every 6 hours. On 07/31/2024, I am seeing the patient for a follow-up. Last night, the patient had an episode of desaturation and tachycardia and some of worsening shortness of breath. She was placed on a facemask and currently she is back to oxygen at 4 L/min nasal cannula. Based on those events, repeat chest x-ray was done and the patient has evidence of COPD and chronic bronchitis. There is improvement in the right infrahilar and right lower lobe pulmonary opacity/infiltration and there is some patchy airspace disease in the retrocardiac area which remains unchanged. Meanwhile, the patient has had no recent CBC from today. Electrolytes are all within normal limits. BUN is 27 with a creatinine of 1.1. She is calm and comfortable. Slightly anxious. She is on a IV Solu-Medrol 60 mg every 6 hours. She is on DuoNeb updrafts. She is also on a combination Perforomist and Pulmicort nebulized treatments twice a day. Rest of the psychiatric medications remain unchanged. 08/01/2024, the patient is being seen for a follow-up. The patient is complaining of some soreness in her chest pressure with exertion. Otherwise, she is being treated for an acute CF exacerbation. She seems to be less bronchospastic and wheezy. No significant sputum production. She remains on 40 of oxygen by nasal cannula. No hemoptysis. No pleurisy. BUN 35 with a creatinine of 1.2 and the rest of electrolytes are all within normal limits. She remains on DuoNeb nebulizer treatments [id number], IV Solu-Medrol, Perforomist and Pulmicort nebulization twice a day and the rest of her medications are essentially unchanged. Blood pressure is stable and the patient remains on 40 selection by nasal cannula with a pulse ox of 92%. A repeat chest x-ray from yesterday showed no significant changes. The patient has some chronic atelectatic changes right lung base which remains essentially unchanged. Echocardiogram was ordered. On today's evaluation of 08/02/2024, the patient remains on 4 L of oxygen by nasal cannula. No new complaints. The patient will be taken off the IV Solu- Medrol and started on a prednisone burst taper. She remains on DuoNeb updrafts. She remains on Perforomist and Pulmicort nebulized treatments twice a day. No new CBC from today. Electrolytes are all within normal limits with a BUN of 35 and a creatinine of 1.2. Echocardiogram showed normal LV function. No significant abnormalities identified. No segmental wall motion abnormalities. On 08/03/2024, the patient resting comfortably in bed. No specific complaints. She remains on DuoNeb. She remains on IV Solu-Medrol and the patient will be switched to prednisone burst taper starting with 40 mg p.o. daily. No fever. No chills. No nausea vomiting or diarrhea. No chest pain. Echo was within normal limits. No new labs are available from today. On 08/04/2024, the patient is reporting some worsening shortness of breath and increased cough and congestion and her oxygen requirements have gotten up to 5 L nasal cannula. She is quite concerned. Based on that, I ordered a CT angiogram that showed no evidence of any pulm embolism. There was pulmonary arterial dilatation up to 3.5 cm in size consistent with pulmonary pretension. No acute cardiopulmonary disease. Chronic COPD. There is also mild to moderate to severe compression fracture of the mid thoracic and upper lumbar spine. There is also evidence of bronchiectasis in the left lower lobe and some in the right lower lobe along with some chronic scarring. Noted, the patient's previous echocardiogram is also shown no evidence of any LV dysfunction. Blood work not available from today. Tolerating diet. No nausea or emesis. No other new complaints otherwise for now. Objective - Vital Signs Vital signs: Vital Signs Temp 98.3 F 08/04/24 07:55 Pulse 88 08/04/24 12:33 Resp 19 08/04/24 07:55 BP 134/76 08/04/24 10:51 Pulse Ox 89 L 08/04/24 08:56 FiO2 Intake & Output 08/03/24 08/04/24 08/04/24 18:59 06:59 18:59 Intake Total 200 2140 Balance 200 2140 Intake: Oral 200 2140 Other: Voiding Method Bedside Commode Bedside Commode Bedside Commode # Voids 4 6 # Bowel Movements 3 - Exam No acute distress, oriented 3. No conversational dyspnea, audible wheezing, or use of accessory muscles. The patient is currently on 5 L of oxygen by nasal cannula HEENT examination is grossly unremarkable. Mucous membranes are moist. No oral lesions. Neck supple. Full range of motion. No adenopathy thyromegaly or neck vein dist ention. Cardiovascular examination reveals regular rhythm rate. S1-S2 normal. No S3 or S4. No discernible murmur noted. Heart sounds are distant. Lungs reveal bilateral expiratory rhonchi and wheezes. Breath sounds are equal bilaterally but diminished throughout. There are no crackles. Abdomen soft bowel sounds are heard. No masses or tenderness. Extremities are intact. No cyanosis clubbing or edema. Skin is without rash or lesion. Neurologic examination is brief but nonfocal. - Labs CBC & Chem 7: 07/29/24 03:23 08/01/24 04:37 Assessment and Plan Plan: Acute hypoxemic respiratory failure secondary to a COPD exacerbation, currently on 5 L of oxygen by nasal cannula. Less short of breath. Complaining of exertional chest pain. No radiation. No diaphoresis. No cardiac arrhythmias. No previous history of coronary artery disease. CT of the chest was done and showed no evidence of any pulmonary embolism. There is emphysema and chronic scarring in the lung bases along with postinfectious limited areas of bronchiectasis in the lower lobes bilaterally. History of severe/stage III COPD with an FEV1 that is 40% of predicted. Chronic hypoxemic respiratory failure, on home O2 Recent admission to the hospital for similar episode, July 05 - July 08. History of gastroesophageal reflux disease. History of hyperlipidemia. History of sleep apnea syndrome. Previous history of right nephrectomy for hypernephroma. History of anxiety/depression. Former tobacco smoker. Compression fracture of the thoracic and upper lumbar spine Plan Clinically stable Remains on 5 L of oxygen by nasal cannula, oxygenation remains stable and unchanged CT scan of the chest was noted and the results were discussed with the patient. Nonspecific chest pain. Echocardiogram was within normal limits and the patient is free of any chest pain at this point. Clinically improving. Continue bronchodilators Continue performance of Pulmicort neb regimen twice a day Continue prednisone burst taper at a dose of 40 mg p.o. daily Viral screen is negative Will continue to follow Time with Patient: Greater than 30
--- NOTE | 2024-08-04 23:12 | P.PN ---
Subjective Progress Note Date: 08/04/24 63-year-old female, history of asthma/COPD, hyperlipidemia, sleep apnea, present to the emergency department with concerns with difficulty breathing. Onset of symptoms was yesterday, worse last couple hours. No fever. No cough. Patient does have history of similar symptoms previously associated with COPD. Patient is on 4-1/2 L home O2. Current laboratory data includes a white count of 11.4, hemoglobin 13.9, hematocrit 43.5, and a normal platelet count. Sodium 142, potassium 4.8, chlorides 100, CO2 38, BUN 17, creatinine 1.10. Liver function test are normal. Viral screen was negative. Chest x-ray showed nothing acute. 07/29/2024 Patient seen in follow-up today currently sitting up in the chair down to 5 L and chronically wears 4 L outpatient. Pulmonary following and maintained on IV steroids along with Pulmicort performers along with DuoNeb treatments aroun d-the-clock. Patient continues to report significant dyspnea with minimal exertion and reports she desats quickly and takes an extended period of time to recover. Patient does have CPAP in the home and reports she is unable to use as she has difficulty with frequent urination at night which makes it difficult for her to take her CPAP mask off and on resulting in incontinence. Patient is afebrile with no reports of chest pain or palpitations. Patient tolerating diet with no reported nausea or vomiting. 07/30/2024 Patient is seen and evaluated in follow-up with pulmonary following currently maintained on 4-1/2 L working on weaning FiO2 as tolerated. Patient continues to be quite dyspneic with minimal exertion and frequently removes oxygen which causes prolonged recovery. Patient reports she feels she is not quite back to her baseline and continues to report significant shortness of breath. Patient has been encouraged to increase activity as tolerated and sit up in the chair more often. Patient is reporting some mild constipation although reports she is having very small bowel movements. Will add Dulcolax as needed as well as MiraLAX. Patient is afebrile with no reported chest pain or palpitations. Patient is continued on DuoNebs and IV steroids and will continue. Not quite ready for discharge. 07/31/2024 Patient being followed by pulmonary maintained on 4-1/2 to 5 L continues to be extremely dyspneic with minimal exertion. Recommend increased activity as tolerated. Plan will be for return home on discharge. Patient white count is elevated likely secondary to steroids. Pulmonary following and will continue current regimen. Discussion of possible discharge planning in the next 24 hours. 08/01/2024 Patient seen in follow up today with pulmonary following closely. Slightly improved aeration today although patient continues to be dyspneic. Patient reports she did have an episode of mild chest pain most likely secondary to continued bronchial cough although 2D echo was ordered per pulmonary and pending at this time. Patient continues to titrate between 4, 4-1/2 to 5 L of oxygen and chronically wears 4-4-1/2 in the outpatient setting. Patient has been encouraged to increase activity as tolerated and walk around the room more frequently. Currently working on walking to the bathroom [id number] although reports she does become exerted having to take breaks frequently. Plan is for patient to return home on discharge. 08/02/2024 Patient is seen and evaluated in follow-up reports to feeling improved and does have some shortness of breath with exertion although is improving and maintaining oxygen above 90% on 4 L. Patient has no ride available until tomorrow as her son is working in [employer] today. Patient will continue IV steroids and transition to oral prednisone starting tomorrow with pulmonary following. Plan is for discharge in 24 hours with close outpatient follow-up. Encouraged increase activity as tolerated. 08/03/2024 Patient is seen in follow-up today being followed by pulmonary initially felt ready to go home although later in the afternoon towards discharge patient became very anxious and fearful and nervous about going home and started reporting worsening shortness of breath. Will monitor overnight and discuss p ossible discharge planning in 24 hours. Pulmonary has evaluated the patient recommending outpatient follow-up and is being transitioned to oral prednisone along with continued treatments. Patient is at baseline on her breathing status and was noted to be above 93% on 4 L nasal cannula. Encouraged increase activity as tolerated. 08/04/2024 Patient is seen in follow-up today continues to feel extremely anxious with significant shortness of breath and per nursing staff requiring more oxygen cu rrently on 5 L and pulmonary following recommend CT chest for evaluation. Patient initially refusing as she did not want to receive the contrast due to having a solitary kidney. Patient has no IV access and difficult to start we will attempt IV access in a.m. and possible CT scan tomorrow. Continue current regimen including supplemental oxygen and breathing treatments. Patient was already transition to oral prednisone per pulmonary. Review of systems: Constitutional: No reports of fatigue, fever, or chills, reports extreme anxiety Cardiovascular: reports of 1 brief episode of chest pain, denies palpitations Respiratory: reports of continued shortness of breath with cough although is i mproving and feels at baseline GI: No reports of nausea, vomiting, or diarrhea, reports having bowel movements : No reports of dysuria or retention Neurovascular: No reports of weakness or numbness All medications have been reviewed Physical exam: Gen: This is a 63-year-old female who is awake, alert and oriented x 3, well- developed, elderly appearing, ill-appearing, anxious HEENT: Head is atraumatic, normocephalic. Pupils equal, round. Sclerae is anicteric. NECK: Supple. No JVD. No lymphadenopathy. No thyromegaly. LUNGS: Diminished breath sounds bilaterally with a few expiratory wheezes noted along with coarse scattered rhonchi. No intercostal retractions. HEART: Regular rate and rhythm. No murmur. ABDOMEN: Soft. Bowel sounds are present. No masses. No tenderness. EXTREMITIES: No pedal edema. No calf tenderness. NEUROLOGICAL: Patient is awake, alert and oriented x3. Cranial nerves 2 through 12 are grossly intact. Assessment: -Acute hypoxic respiratory failure secondary to COPD exacerbation, patient chronically wears 4 to 4-1/2 L outpatient -Acute exacerbation COPD with history of severe/stage III COPD with an FEV1 that is 40% of predicted. -Hypertension -Hyperlipidemia -Hypothyroidism -Sleep apnea syndrome able to wear CPAP at home -Anxiety/depression GI prophylaxis DVT prophylaxis; SCDs CODE STATUS; full code Plan: Patient is admitted for COPD with acute on chronic hypoxia currently weaning FiO2 as tolerated. Patient is maintained on 5-6 L today reporting more shortness of breath with difficulty in breathing. Pulmonary following as patient was scheduled to be discharged although became more anxious reporting increasing shortness of breath and CAT scan was ordered of the chest and patient refused as she did not want to receive the contrast due to her solitary kidney and kidney functions with a creatinine of 1.5. Patient has no IV access with multiple attempts we will attempt tomorrow and/or obtain AccuCath and patient is agreeable to undergo CAT scan. Will follow-up on repeat labs in a.m. to monitor kidney functions closely. Pulmonary following and will continue on DuoNebs and has been transitioned to oral prednisone yesterday. Patient was wearing 4 L all day until time of discharge when patient became increasingly anxious and more short of breath and refusing to discharge. Encourage increase activity as tolerated, patient to be sitting up in the chair with all meals and more frequently throughout the day Encourage small frequent meals Continue bowel regimen as needed Pulmonary following we will continue on DuoNebs along with Perforomist and Pulmicort and has transitioned to oral prednisone taper. Patient will need outpatient follow-up with pulmonary on discharge Due to multiple complex medical issues, overall prognosis is guarded Patient was to be discharged yesterday although became more anxious and short of breath and is being monitored. CT chest ordered and pending and patient has no IV access and a difficult stick will attempt AccuCath tomorrow and follow-up on chest x-ray. Repeat kidney function labs and monitor them closely. The impression and plan of care has been dictated as a scribe by Peri Mg, Nurse Practitioner as directed. Dr. Monico MD I have performed a history and examination and MDM of this patient, discussed the same with the dictator, and agree with the dictator's assessment and plan as written ,documented as a scribe. Based on total visit time, I have performed more than 50% of the visit. Thank Objective - Vital Signs Vital signs: Vital Signs Temp 98.3 F 08/04/24 07:55 Pulse 91 08/04/24 10:51 Resp 19 08/04/24 07:55 BP 134/76 08/04/24 10:51 Pulse Ox 89 L 08/04/24 08:56 FiO2 Intake & Output 08/03/24 08/04/24 08/04/24 18:59 06:59 18:59 Intake Total 200 2140 Balance 200 2140 Intake: Oral 200 2140 Other: Voiding Method Bedside Commode Bedside Commode Bedside Commode # Voids 4 6 # Bowel Movements 3 - Labs CBC & Chem 7: 07/29/24 03:23 08/01/24 04:37
[2024-08-05 08:35] LABS: BUN/Creat Ratio 34.75 Ratio (12.00-20.00); Blood Urea Nitrogen 27.8 mg/dL (9.0-27.0); Carbon Dioxide 36.9 mmol/L (21.6-31.8); Chloride 102 mmol/L (96-109); Glucose 77 mg/dL (70-110); Sodium 145 mmol/L (135-145)
--- NOTE | 2024-08-05 13:50 | P.PN ---
Subjective Progress Note Date: 08/05/24 On 07/29/2024, seen the patient for a follow-up. Patient is being seen for an acute COPD exacerbation. Feeling better compared to yesterday. She remains on DuoNeb updrafts. She is also on a combination of Perforomist and Pulmicort neb regimen twice a day and she is on a IV Solu-Medrol 60 mg every 6 hours. The white cell count is at 13.5 with a hemoglobin of 12 and a platelet count of 174. Sodium level is at 145 with a potassium level of 4.4, BUN is at 19 with a creatinine of 1.1. No chest pain. No pleurisy. No hemoptysis. Chest x-ray from time of admission shows no evidence of any acute cardiopulmonary process. The patient is resting comfortably in bed. No other significant events overn ight. On today's evaluation of 07/30/2024, the patient is feeling better. Continues to have some cough and congestion. Overall less bronchospastic and wheezy over the past 24 hours. She remains on 4 L of oxygen by nasal cannula. She is a dentulous. No oropharyngeal candidiasis. No pleurisy. No hemoptysis. The sodium level is at 140 with a potassium level of 4.4, BUN 27 with a creatinine of 1.1. No other significant events over the past 24 hours. Medication remains unchanged. The patient is on DuoNeb updrafts, Perforomist and Pulmicort nebulized treatments twice a day and IV Solu-Medrol 60 mg every 6 hours. On 07/31/2024, I am seeing the patient for a follow-up. Last night, the patient had an episode of desaturation and tachycardia and some of worsening shortness of breath. She was placed on a facemask and currently she is back to oxygen at 4 L/min nasal cannula. Based on those events, repeat chest x-ray was done and the patient has evidence of COPD and chronic bronchitis. There is improvement in the right infrahilar and right lower lobe pulmonary opacity/infiltration and there is some patchy airspace disease in the retrocardiac area which remains unchanged. Meanwhile, the patient has had no recent CBC from today. Electrolytes are all within normal limits. BUN is 27 with a creatinine of 1.1. She is calm and comfortable. Slightly anxious. She is on a IV Solu-Medrol 60 mg every 6 hours. She is on DuoNeb updrafts. She is also on a combination Perforomist and Pulmicort nebulized treatments twice a day. Rest of the psychiatric medications remain unchanged. 08/01/2024, the patient is being seen for a follow-up. The patient is complaining of some soreness in her chest pressure with exertion. Otherwise, she is being treated for an acute CF exacerbation. She seems to be less bronchospastic and wheezy. No significant sputum production. She remains on 40 of oxygen by nasal cannula. No hemoptysis. No pleurisy. BUN 35 with a creatinine of 1.2 and the rest of electrolytes are all within normal limits. She remains on DuoNeb nebulizer treatments [id number], IV Solu-Medrol, Perforomist and Pulmicort nebulization twice a day and the rest of her medications are essentially unchanged. Blood pressure is stable and the patient remains on 40 selection by nasal cannula with a pulse ox of 92%. A repeat chest x-ray from yesterday showed no significant changes. The patient has some chronic atelectatic changes right lung base which remains essentially unchanged. Echocardiogram was ordered. On today's evaluation of 08/02/2024, the patient remains on 4 L of oxygen by nasal cannula. No new complaints. The patient will be taken off the IV Solu- Medrol and started on a prednisone burst taper. She remains on DuoNeb updrafts. She remains on Perforomist and Pulmicort nebulized treatments twice a day. No new CBC from today. Electrolytes are all within normal limits with a BUN of 35 and a creatinine of 1.2. Echocardiogram showed normal LV function. No significant abnormalities identified. No segmental wall motion abnormalities. On 08/03/2024, the patient resting comfortably in bed. No specific complaints. She remains on DuoNeb. She remains on IV Solu-Medrol and the patient will be switched to prednisone burst taper starting with 40 mg p.o. daily. No fever. No chills. No nausea vomiting or diarrhea. No chest pain. Echo was within normal limits. No new labs are available from today. On 08/04/2024, the patient is reporting some worsening shortness of breath and increased cough and congestion and her oxygen requirements have gotten up to 5 L nasal cannula. She is quite concerned. Based on that, I ordered a CT angiogram that showed no evidence of any pulm embolism. There was pulmonary arterial dilatation up to 3.5 cm in size consistent with pulmonary pretension. No acute cardiopulmonary disease. Chronic COPD. There is also mild to moderate to severe compression fracture of the mid thoracic and upper lumbar spine. There is also evidence of bronchiectasis in the left lower lobe and some in the right lower lobe along with some chronic scarring. Noted, the patient's previous echocardiogram is also shown no evidence of any LV dysfunction. Blood work not available from today. Tolerating diet. No nausea or emesis. No other new complaints otherwise for now. The patient is seen today August 05, 2024 in follow-up on the regular medical floor. She is sitting up in bed. Awake and alert in no acute distress. Maintaining O2 saturations in the 90s on 4 L/min per nasal cannula. She has been afebrile. Hemodynamically stable. Sodium 145. Potassium 4.0. Bicarb 37. BUN 28. Creatinine 0.8. Glucose 77. She remains on DuoNeb inhalations, Pulmicort and Perforomist inhalations, prednisone taper. Objective - Vital Signs Vital signs: Vital Signs Temp 97.4 F L 08/05/24 08:00 Pulse 92 08/05/24 12:38 Resp 18 08/05/24 08:00 BP 126/77 08/05/24 11:38 Pulse Ox 90 L 08/05/24 09:24 FiO2 Intake & Output 08/04/24 08/05/24 08/05/24 18:59 06:59 18:59 Intake Total 200 Output Total 1000 Balance 200 -1000 Intake: Oral 200 Output: Urine 1000 Other: Voiding Method Bedside Commode Bedside Commode # Voids 6 # Bowel Movements 3 - Exam GENERAL EXAM: Alert, active, 63-year-old female, on 4 L nasal cannula, comfortable in no apparent distress. HEAD: Normocephalic. EYES: Normal reaction of pupils, equal size. NOSE: Clear with pink turbinates. THROAT: No erythema or exudates. NECK: No masses, no JVD. CHEST: No chest wall deformity. LUNGS: Equal air entry with bilateral end expiratory wheeze. CVS: S1 and S2 normal with no audible murmur, regular rhythm. ABDOMEN: No hepatosplenomegaly, normal bowel sounds, no guarding or rigidity. SPINE: No scoliosis or deformity SKIN: No rashes CENTRAL NERVOUS SYSTEM: No focal deficits, tone is normal in all 4 extremities. EXTREMITIES: There is no peripheral edema. No clubbing, no cyanosis. Peripheral pulses are intact. - Labs CBC & Chem 7: 07/29/24 03:23 08/05/24 03:39 Labs: Abnormal Lab Results - Last 24 Hours (Table) 08/05/24 Range/Units 03:39 Carbon Dioxide 36.9 H (21.6-31.8) mmol/L BUN 27.8 H (9.0-27.0) mg/dL BUN/Creatinine Ratio 34.75 H (12.00-20.00) Ratio Calcium 8.0 L (8.7-10.3) mg/dL Assessment and Plan Assessment: Acute hypoxemic respiratory failure secondary to a COPD exacerbation, currently on 4 L of oxygen by nasal cannula. Less short of breath. Complaining of exertional chest pain. No radiation. No diaphoresis. No cardiac arrhythmias. No previous history of coronary artery disease. CT of the chest was done and showed no evidence of any pulmonary embolism. There is emphysema and chronic scarring in the lung bases along with postinfectious limited areas of bronchiectasis in the lower lobes bilaterally History of severe/stage III COPD with an FEV1 that is 40% of predicted Chronic hypoxemic respiratory failure, on home O2 Recent admission to the hospital for similar episode, July 05 - July 08, 2024 History of gastroesophageal reflux disease. History of hyperlipidemia. History of sleep apnea syndrome. Previous history of right nephrectomy for hypernephroma. History of anxiety/depression. Former tobacco smoker. Compression fracture of the thoracic and upper lumbar spine Plan: The patient was seen and evaluated Labs and medications reviewed Currently on 4 L/min per nasal cannula Continued on DuoNeb inhalations Continued on Pulmicort and Perforomist inhalations Continued on a prednisone taper Plan is for home with home care at discharge I have personally seen and examined the patient, performed the documentation and the assessment and plan as written. Number of minutes spent on the visit: 10 Dictation was produced using [employer] software. Please excuse any grammatical, word or spelling errors.
--- NOTE | 2024-08-06 04:40 | P.PN ---
Subjective Progress Note Date: 08/05/24 63-year-old female, history of asthma/COPD, hyperlipidemia, sleep apnea, present to the emergency department with concerns with difficulty breathing. Onset of symptoms was yesterday, worse last couple hours. No fever. No cough. Patient does have history of similar symptoms previously associated with COPD. Patient is on 4-1/2 L home O2. Current laboratory data includes a white count of 11.4, hemoglobin 13.9, hematocrit 43.5, and a normal platelet count. Sodium 142, potassium 4.8, chlorides 100, CO2 38, BUN 17, creatinine 1.10. Liver function test are normal. Viral screen was negative. Chest x-ray showed nothing acute. 07/29/2024 Patient seen in follow-up today currently sitting up in the chair down to 5 L and chronically wears 4 L outpatient. Pulmonary following and maintained on IV steroids along with Pulmicort performers along with DuoNeb treatments aroun d-the-clock. Patient continues to report significant dyspnea with minimal exertion and reports she desats quickly and takes an extended period of time to recover. Patient does have CPAP in the home and reports she is unable to use as she has difficulty with frequent urination at night which makes it difficult for her to take her CPAP mask off and on resulting in incontinence. Patient is afebrile with no reports of chest pain or palpitations. Patient tolerating diet with no reported nausea or vomiting. 07/30/2024 Patient is seen and evaluated in follow-up with pulmonary following currently maintained on 4-1/2 L working on weaning FiO2 as tolerated. Patient continues to be quite dyspneic with minimal exertion and frequently removes oxygen which causes prolonged recovery. Patient reports she feels she is not quite back to her baseline and continues to report significant shortness of breath. Patient has been encouraged to increase activity as tolerated and sit up in the chair more often. Patient is reporting some mild constipation although reports she is having very small bowel movements. Will add Dulcolax as needed as well as MiraLAX. Patient is afebrile with no reported chest pain or palpitations. Patient is continued on DuoNebs and IV steroids and will continue. Not quite ready for discharge. 07/31/2024 Patient being followed by pulmonary maintained on 4-1/2 to 5 L continues to be extremely dyspneic with minimal exertion. Recommend increased activity as tolerated. Plan will be for return home on discharge. Patient white count is elevated likely secondary to steroids. Pulmonary following and will continue current regimen. Discussion of possible discharge planning in the next 24 hours. 08/01/2024 Patient seen in follow up today with pulmonary following closely. Slightly improved aeration today although patient continues to be dyspneic. Patient reports she did have an episode of mild chest pain most likely secondary to continued bronchial cough although 2D echo was ordered per pulmonary and pending at this time. Patient continues to titrate between 4, 4-1/2 to 5 L of oxygen and chronically wears 4-4-1/2 in the outpatient setting. Patient has been encouraged to increase activity as tolerated and walk around the room more frequently. Currently working on walking to the bathroom [id number] although reports she does become exerted having to take breaks frequently. Plan is for patient to return home on discharge. 08/02/2024 Patient is seen and evaluated in follow-up reports to feeling improved and does have some shortness of breath with exertion although is improving and maintaining oxygen above 90% on 4 L. Patient has no ride available until tomorrow as her son is working in [employer] today. Patient will continue IV steroids and transition to oral prednisone starting tomorrow with pulmonary following. Plan is for discharge in 24 hours with close outpatient follow-up. Encouraged increase activity as tolerated. 08/03/2024 Patient is seen in follow-up today being followed by pulmonary initially felt ready to go home although later in the afternoon towards discharge patient became very anxious and fearful and nervous about going home and started reporting worsening shortness of breath. Will monitor overnight and discuss p ossible discharge planning in 24 hours. Pulmonary has evaluated the patient recommending outpatient follow-up and is being transitioned to oral prednisone along with continued treatments. Patient is at baseline on her breathing status and was noted to be above 93% on 4 L nasal cannula. Encouraged increase activity as tolerated. 08/04/2024 Patient is seen in follow-up today continues to feel extremely anxious with significant shortness of breath and per nursing staff requiring more oxygen cu rrently on 5 L and pulmonary following recommend CT chest for evaluation. Patient initially refusing as she did not want to receive the contrast due to having a solitary kidney. Patient has no IV access and difficult to start we will attempt IV access in a.m. and possible CT scan tomorrow. Continue current regimen including supplemental oxygen and breathing treatments. Patient was already transition to oral prednisone per pulmonary. 08/05/2024 Patient is seen in follow-up today with pulmonary following is status post CT of the chest which was negative for PE with pulmonary hypertension and significant COPD. Patient is maintained on a prednisone taper along with [id number] DuoNeb treatments and will continue. Patient was reporting significant increase shortness of breath requiring 6 L and currently maintained on 5 L and weaning as tolerated. Encouraged to increase activity as tolerated and continue with as needed anxiety medication. Will continue to monitor closely and discuss further with pulmonary regarding discharge planning possibly in the next 24 hours. Review of systems: Constitutional: No reports of fatigue, fever, or chills, reports extreme anxiety Cardiovascular: reports of 1 brief episode of chest pain, denies palpitations Respiratory: reports of continued shortness of breath with cough GI: No reports of nausea, vomiting, or diarrhea, reports having bowel movements : No reports of dysuria or retention Neurovascular: No reports of weakness or numbness All medications have been reviewed Physical exam: Gen: This is a 63-year-old female who is awake, alert and oriented x 3, well- developed, elderly appearing, ill-appearing, anxious HEENT: Head is atraumatic, normocephalic. Pupils equal, round. Sclerae is anicteric. NECK: Supple. No JVD. No lymphadenopathy. No thyromegaly. LUNGS: Diminished breath sounds bilaterally with a few expiratory wheezes noted along with coarse scattered rhonchi. No intercostal retractions. HEART: Regular rate and rhythm. No murmur. ABDOMEN: Soft. Bowel sounds are present. No masses. No tenderness. EXTREMITIES: No pedal edema. No calf tenderness. NEUROLOGICAL: Patient is awake, alert and oriented x3. Cranial nerves 2 through 12 are grossly intact. Assessment: -Acute hypoxic respiratory failure secondary to COPD exacerbation, patient chronically wears 4 to 4-1/2 L outpatient -Acute exacerbation COPD with history of severe/stage III COPD with an FEV1 that is 40% of predicted. -Hypertension -Hyperlipidemia -Hypothyroidism -Sleep apnea syndrome able to wear CPAP at home -Anxiety/depression GI prophylaxis DVT prophylaxis; SCDs CODE STATUS; full code Plan: Patient is admitted for COPD with acute on chronic hypoxia currently weaning FiO2 as tolerated. Patient is maintained on 5 L today reporting continued shortness of breath with difficulty in breathing. Pulmonary following and reporting will continue on prednisone taper along with DuoNeb treatments and weaning FiO2 as tolerated. Not quite ready for discharge and will follow-up in 24 hours Patient continues to have extreme anxiety when discussing discharge with history of anxiety and will continue her current medication regimen. Encouraged to increase activity as tolerated and sitting up out of the bed more frequently Patient did undergo CT of the chest with no PE noted with pulmonary hypertension noted as well Encourage small frequent meals Continue bowel regimen as needed Pulmonary following we will continue on DuoNebs along with Perforomist and Pulmicort and has transitioned to oral prednisone taper. Patient will need outpatient follow-up with pulmonary on discharge Due to multiple complex medical issues, overall prognosis is guarded Will discuss with pulmonary regarding possible discharge planning in the next 24 to 48 hours The impression and plan of care has been dictated by Peri Mg, Nurse Practitioner as directed. Dr. bryan MD I have performed a history and examination and MDM of this patient, discussed the same with the dictator, and agree with the dictator's assessment and plan as written ,documented as a scribe. Based on total visit time, I have performed more than 50% of the visit. Objective - Vital Signs Vital signs: Vital Signs Temp 97.7 F 08/06/24 02:00 Pulse 78 08/06/24 02:00 Resp 17 08/06/24 02:00 BP 129/75 08/06/24 02:00 Pulse Ox 93 L 08/06/24 02:00 FiO2 Intake & Output 08/05/24 08/05/24 08/06/24 06:59 18:59 06:59 Intake Total 150 Output Total 1000 Balance -1000 150 Intake: Oral 150 Output: Urine 1000 Other: Voiding Method Bedside Commode - Labs CBC & Chem 7: 07/29/24 03:23 08/05/24 03:39 Labs: Abnormal Lab Results - Last 24 Hours (Table) 08/05/24 Range/Units 03:39 Carbon Dioxide 36.9 H (21.6-31.8) mmol/L BUN 27.8 H (9.0-27.0) mg/dL BUN/Creatinine Ratio 34.75 H (12.00-20.00) Ratio Calcium 8.0 L (8.7-10.3) mg/dL
[2024-08-06] MEDS: polyethylene glycoL 3350 17 GM POWD.PACK PO PRN (08:22)
[2024-08-06 08:41] VITALS: BP 128/79; TEMP 98
[2024-08-06 09:41] VITALS: RESP 20
[2024-08-06 12:13] VITALS: PULSE 100
--- NOTE | 2024-08-06 14:15 | P.PN ---
Subjective Progress Note Date: 08/06/24 On 07/29/2024, seen the patient for a follow-up. Patient is being seen for an acute COPD exacerbation. Feeling better compared to yesterday. She remains on DuoNeb updrafts. She is also on a combination of Perforomist and Pulmicort neb regimen twice a day and she is on a IV Solu-Medrol 60 mg every 6 hours. The white cell count is at 13.5 with a hemoglobin of 12 and a platelet count of 174. Sodium level is at 145 with a potassium level of 4.4, BUN is at 19 with a creatinine of 1.1. No chest pain. No pleurisy. No hemoptysis. Chest x-ray from time of admission shows no evidence of any acute cardiopulmonary process. The patient is resting comfortably in bed. No other significant events overn ight. On today's evaluation of 07/30/2024, the patient is feeling better. Continues to have some cough and congestion. Overall less bronchospastic and wheezy over the past 24 hours. She remains on 4 L of oxygen by nasal cannula. She is a dentulous. No oropharyngeal candidiasis. No pleurisy. No hemoptysis. The sodium level is at 140 with a potassium level of 4.4, BUN 27 with a creatinine of 1.1. No other significant events over the past 24 hours. Medication remains unchanged. The patient is on DuoNeb updrafts, Perforomist and Pulmicort nebulized treatments twice a day and IV Solu-Medrol 60 mg every 6 hours. On 07/31/2024, I am seeing the patient for a follow-up. Last night, the patient had an episode of desaturation and tachycardia and some of worsening shortness of breath. She was placed on a facemask and currently she is back to oxygen at 4 L/min nasal cannula. Based on those events, repeat chest x-ray was done and the patient has evidence of COPD and chronic bronchitis. There is improvement in the right infrahilar and right lower lobe pulmonary opacity/infiltration and there is some patchy airspace disease in the retrocardiac area which remains unchanged. Meanwhile, the patient has had no recent CBC from today. Electrolytes are all within normal limits. BUN is 27 with a creatinine of 1.1. She is calm and comfortable. Slightly anxious. She is on a IV Solu-Medrol 60 mg every 6 hours. She is on DuoNeb updrafts. She is also on a combination Perforomist and Pulmicort nebulized treatments twice a day. Rest of the psychiatric medications remain unchanged. 08/01/2024, the patient is being seen for a follow-up. The patient is complaining of some soreness in her chest pressure with exertion. Otherwise, she is being treated for an acute CF exacerbation. She seems to be less bronchospastic and wheezy. No significant sputum production. She remains on 40 of oxygen by nasal cannula. No hemoptysis. No pleurisy. BUN 35 with a creatinine of 1.2 and the rest of electrolytes are all within normal limits. She remains on DuoNeb nebulizer treatments [id number], IV Solu-Medrol, Perforomist and Pulmicort nebulization twice a day and the rest of her medications are essentially unchanged. Blood pressure is stable and the patient remains on 40 selection by nasal cannula with a pulse ox of 92%. A repeat chest x-ray from yesterday showed no significant changes. The patient has some chronic atelectatic changes right lung base which remains essentially unchanged. Echocardiogram was ordered. On today's evaluation of 08/02/2024, the patient remains on 4 L of oxygen by nasal cannula. No new complaints. The patient will be taken off the IV Solu- Medrol and started on a prednisone burst taper. She remains on DuoNeb updrafts. She remains on Perforomist and Pulmicort nebulized treatments twice a day. No new CBC from today. Electrolytes are all within normal limits with a BUN of 35 and a creatinine of 1.2. Echocardiogram showed normal LV function. No significant abnormalities identified. No segmental wall motion abnormalities. On 08/03/2024, the patient resting comfortably in bed. No specific complaints. She remains on DuoNeb. She remains on IV Solu-Medrol and the patient will be switched to prednisone burst taper starting with 40 mg p.o. daily. No fever. No chills. No nausea vomiting or diarrhea. No chest pain. Echo was within normal limits. No new labs are available from today. On 08/04/2024, the patient is reporting some worsening shortness of breath and increased cough and congestion and her oxygen requirements have gotten up to 5 L nasal cannula. She is quite concerned. Based on that, I ordered a CT angiogram that showed no evidence of any pulm embolism. There was pulmonary arterial dilatation up to 3.5 cm in size consistent with pulmonary pretension. No acute cardiopulmonary disease. Chronic COPD. There is also mild to moderate to severe compression fracture of the mid thoracic and upper lumbar spine. There is also evidence of bronchiectasis in the left lower lobe and some in the right lower lobe along with some chronic scarring. Noted, the patient's previous echocardiogram is also shown no evidence of any LV dysfunction. Blood work not available from today. Tolerating diet. No nausea or emesis. No other new complaints otherwise for now. The patient is seen today August 05, 2024 in follow-up on the regular medical floor. She is sitting up in bed. Awake and alert in no acute distress. Maintaining O2 saturations in the 90s on 4 L/min per nasal cannula. She has been afebrile. Hemodynamically stable. Sodium 145. Potassium 4.0. Bicarb 37. BUN 28. Creatinine 0.8. Glucose 77. She remains on DuoNeb inhalations, Pulmicort and Perforomist inhalations, prednisone taper. The patient is seen today August 06, 2024 in follow-up on the regular medical floor. She is awake and alert no acute distress. Resting comfortably in bed. Denies any worsening shortness of breath, cough or congestion. No new labs today. She remains on DuoNeb inhalations, prednisone taper, Pulmicort and Perforomist inhalations. Objective - Vital Signs Vital signs: Vital Signs Temp 98.0 F 08/06/24 08:00 Pulse 100 08/06/24 12:12 Resp 20 08/06/24 09:40 BP 128/79 08/06/24 08:00 Pulse Ox 93 L 08/06/24 08:00 FiO2 Intake & Output 08/05/24 08/06/24 08/06/24 18:59 06:59 18:59 Intake Total 150 500 Output Total 1000 Balance 150 -500 Intake: Oral 150 500 Output: Urine 1000 Other: Voiding Method Bedside Commode # Voids 2 2 - Exam GENERAL EXAM: Alert, 63-year-old female, appears older than stated age, on 4 L nasal cannula, in no apparent distress. HEAD: Normocephalic. EYES: Normal reaction of pupils, equal size. NOSE: Clear with pink turbinates. THROAT: No erythema or exudates. NECK: No masses, no JVD. CHEST: No chest wall deformity. LUNGS: Equal air entry with bilateral end expiratory wheeze. CVS: S1 and S2 normal with no audible murmur, regular rhythm. ABDOMEN: No hepatosplenomegaly, normal bowel sounds, no guarding or rigidity. SPINE: No scoliosis or deformity SKIN: No rashes CENTRAL NERVOUS SYSTEM: No focal deficits, tone is normal in all 4 extremities. EXTREMITIES: There is no peripheral edema. No clubbing, no cyanosis. Peripheral pulses are intact. - Labs CBC & Chem 7: 07/29/24 03:23 08/05/24 03:39 Assessment and Plan Assessment: Acute hypoxemic respiratory failure secondary to a COPD exacerbation, currently on 4 L of oxygen by nasal cannula. Less short of breath. Complaining of exertional chest pain. No radiation. No diaphoresis. No cardiac arrhythmias. No previous history of coronary artery disease. CT of the chest was done and showed no evidence of any pulmonary embolism. There is emphysema and chronic scarring in the lung bases along with postinfectious limited areas of bronchiectasis in the lower lobes bilaterally History of severe/stage III COPD with an FEV1 that is 40% of predicted Chronic hypoxemic respiratory failure, on home O2 Recent admission to the hospital for similar episode, July 05 - July 08, 2024 History of gastroesophageal reflux disease. History of hyperlipidemia. History of sleep apnea syndrome. Previous history of right nephrectomy for hypernephroma. History of anxiety/depression. Former tobacco smoker. Compression fracture of the thoracic and upper lumbar spine Plan: The patient was seen and evaluated Medications reviewed Cleared for discharge Continue her home pulmonary medications/oxygen Complete a prednisone taper Follow-up in the office in 1 week Plan is for home with home care I have personally seen and examined the patient, performed the documentation and the assessment and plan as written. Number of minutes spent on the visit: 10 Dictation was produced using [email or web address] dictation software. Please excuse any grammatical, word or spelling errors.
== END 2024-08-06 12:34 | disposition home health service (06) | DRG 189 ==
LOC: EC 14:10 → 4SSUR 18:03
PROVIDERS: ADMIT Hospitalist; ATTEND Hospitalist
DX: J96.21 Acute and chronic respiratory failure with hypoxia (principal); M48.54XA Collapsed vertebra, not elsewhere classified, thoracic region, initial encounter for fracture; Z99.81 Dependence on supplemental oxygen; J44.1 Chronic obstructive pulmonary disease with (acute) exacerbation; F31.9 Bipolar disorder, unspecified; E03.9 Hypothyroidism, unspecified; I10 Essential (primary) hypertension; K76.9 Liver disease, unspecified; M48.56XA Collapsed vertebra, not elsewhere classified, lumbar region, initial encounter for fracture; J47.9 Bronchiectasis, uncomplicated; J43.9 Emphysema, unspecified; K21.9 Gastro-esophageal reflux disease without esophagitis; G47.33 Obstructive sleep apnea (adult) (pediatric); E78.5 Hyperlipidemia, unspecified; F41.9 Anxiety disorder, unspecified; K59.00 Constipation, unspecified; R32 Unspecified urinary incontinence; K00.0 Anodontia; T38.0X5A Adverse effect of glucocorticoids and synthetic analogues, initial encounter; D72.829 Elevated white blood cell count, unspecified; Z79.52 Long term (current) use of systemic steroids; Z79.890 Hormone replacement therapy; Z79.899 Other long term (current) drug therapy; Z85.528 Personal history of other malignant neoplasm of kidney; Z87.891 Personal history of nicotine dependence; Z90.5 Acquired absence of kidney; Z88.6 Allergy status to analgesic agent; Z88.1 Allergy status to other antibiotic agents; Z88.5 Allergy status to narcotic agent; Z88.0 Allergy status to penicillin; Z88.2 Allergy status to sulfonamides; J45.909 Unspecified asthma, uncomplicated
CPT/HCPCS: 36415; 71045; 71046; 71275; 80048; 80053; 83605; 83735; 84100; 85025; 85610; 85730; 87636; 93005; 93306; 94640; 94760; 96361; 96374; 96375; 99291

== ENCOUNTER 2024-08-31 01:57 | Inpatient (IN) | payer MEDICARE, OTHER ==
[2024-08-31 03:01] LABS: Basophils # (A) 0.06 10*3/uL (0.00-0.10); Basophils % (A) 0.7 %; Eosinophils % (A) 3.4 %; HCT 42.6 % (37.2-46.3); HGB 13.2 g/dL (12.0-15.0); Lymphocytes % (A) 27.2 %; MCH 31.7 pg (27.0-32.0); MCV 102.2 fL (80.0-97.0); Monocytes # (A) 0.89 10*3/uL (0.20-1.00); Monocytes % (A) 10.1 %; Neutrophils # (A) 5.08 10*3/uL (1.80-7.70); Neutrophils % (A) 57.6 %; Platelet Count 198 10*3/uL (140-440); RBC 4.17 10*6/uL (4.10-5.20); RDW 13.4 % (11.5-14.5); WBC 8.82 10*3/uL (4.50-10.00)
[2024-08-31] MEDS: methylPREDNISolone SOD SUCCI 125 MG/2 ML VIAL IV STA (03:02)
--- NOTE | 2024-08-31 03:16 | ED ---
General Adult HPI - General Chief complaint: Shortness of Breath Stated complaint: SOB Time Seen by Provider: 08/31/24 02:12 Source: EMS Mode of arrival: EMS Limitations: no limitations - History of Present Illness Initial comments: 64-year-old female with history of COPD presenting with chief complaint of shortness of breath. Patient states that she woke up tonight and her oxygen was at 77%. She wears 4 L of oxygen at home on a regular basis. She states that normally she ranges from about 90 to 92%. She does drop into the 80s when she is ambulating. She states that she was not able to get it passed up 88 while at rest at home with her oxygen and breathing treatments so she called EMS. She was given DuoNeb when she reports some improvement after that. She reports that she was previously on formoterol and that was working quite well for her, however she states that she has had some insurance issues recently and has not been able to get it so she has been having some difficulties with her breathing. States that she believes that she is going to build he would get it on Monday. She is having no chest pain. No fever. No URI-like symptoms. No lower extremity swelling. - Related Data Home Medications Medication Instructions Recorded Confirmed Ziprasidone [Geodon] 40 mg PO DAILY@0500 02/07/14 08/31/24 Albuterol Inhaler [Ventolin Hfa 2 puff INHALATION RT-Q6H PRN 11/07/17 08/31/24 Inhaler] Atorvastatin Calcium [Lipitor] 40 mg PO HS@1700 07/03/22 08/31/24 Levothyroxine Sodium [Synthroid] 112 mcg PO DAILY@0500 07/03/22 08/31/24 Ziprasidone [Geodon] 60 mg PO HS@1700 07/03/22 08/31/24 buPROPion HCL [Wellbutrin SR] 200 mg PO BID@0500,1700 07/03/22 08/31/24 Propranolol [Inderal] 20 mg PO BID@0500,1700 03/14/23 08/31/24 HYDROcodone/APAP 7.5-325MG [[place] 1 tab PO Q8H PRN 09/09/23 08/31/24 7.5-325] Ipratropium-Albuterol Nebulize 3 ml INHALATION RT-QID 09/09/23 08/31/24 [Duoneb 0.5 mg-3 mg/3 ml Soln] Magnesium Oxide [Mag-Ox] 400 mg PO BID@0500,1700 09/09/23 08/31/24 Pantoprazole [Protonix] 40 mg PO DAILY@0500 09/09/23 08/31/24 ALPRAZolam [Xanax] 0.5 mg PO DAILY PRN 04/17/24 08/31/24 Budesonide 0.5 mg INHALATION RT-BID@0500,1700 04/17/24 08/31/24 Multivitamins, Thera [Multivitamin 1 tab PO DAILY@0500 04/17/24 08/31/24 (formulary)] cloNIDine HCL [Catapres] 0.1 mg PO TID@0500,1100,1700 04/17/24 08/31/24 hydrALAZINE HCL [Apresoline] 10 mg PO TID@0500,1100,1700 04/17/24 08/31/24 Formoterol Fumarate [Perforomist] 20 mcg INHALATION RT-BID@0500,1700 07/27/24 08/31/24 Metamucil Gummy 1 tab PO HS@1700 07/27/24 08/31/24 Sennosides [Senokot] 8.6 mg PO DAILY PRN 07/27/24 08/31/24 Previous Rx's Medication Instructions Recorded Ipratropium-Albuterol Nebulize 3 ml INHALATION RT-Q2H PRN each 08/03/24 [Duoneb 0.5 mg-3 mg/3 ml Soln] Allergies Allergy/AdvReac Type Severity Reaction Status Date / Time codeine Allergy Rash/Hives Verified 08/31/24 08:57 doxycycline Allergy Rash/Hives Verified 08/31/24 08:57 Penicillins Allergy Rash/Hives Verified 08/31/24 08:57 on feet Sulfa (Sulfonamide Allergy Rash/Hives Verified 08/31/24 08:57 Antibiotics) ibuprofen [From Motrin] AdvReac Nausea & Verified 08/31/24 08:57 Vomiting Review of Systems ROS Statement: Those systems with pertinent positive or pertinent negative responses have been documented in the HPI. ROS Other: All systems not noted in ROS Statement are negative. Past Medical History Past Medical History: Asthma, COPD, GERD/Reflux, Hyperlipidemia, Liver Disease, Sleep Apnea/CPAP/BIPAP Additional Past Medical History / Comment(s): hx internal hemorrhoid, kidney CA with right nephrectomy, CPAP use, colitis, IBS History of Any Multi-Drug Resistant Organisms: None Reported Past Surgical History: Hysterectomy Additional Past Surgical History / Comment(s): right nephrectomy 04/11/22 Past Anesthesia/Blood Transfusion Reactions: No Reported Reaction Past Psychological History: Anxiety, Bipolar, Depression Smoking Status: Former smoker Past Alcohol Use History: None Reported Past Drug Use History: None Reported - Past Family History Father Family Medical History: COPD, Hyperlipidemia, Hypertension Mother Family Medical History: COPD, Hyperlipidemia, Hypertension General Exam Limitations: no limitations General appearance: alert, in no apparent distress Head exam: Present: atraumatic, normocephalic, normal inspection Eye exam: Present: normal appearance, EOMI Neck exam: Present: normal inspection. Absent: meningismus Respiratory exam: Present: wheezes. Absent: respiratory distress, rales, rhonchi, stridor Cardiovascular Exam: Present: regular rate, normal rhythm, normal heart sounds. Absent: systolic murmur, diastolic murmur, rubs, gallop, clicks Neurological exam: Present: alert, oriented X3 Psychiatric exam: Present: normal affect, normal mood Skin exam: Present: warm, dry, normal color Course Vital Signs 08/31/24 08/31/24 08/31/24 02:02 02:28 03:27 Temperature 98.3 F Pulse Rate 111 H 104 H Pulse Rate [ Left] Respiratory 22 22 Rate Blood Pressure 134/81 Blood Pressure [Left Arm] O2 Sat by Pulse 95 Oximetry 08/31/24 08/31/24 08/31/24 03:34 03:37 05:26 Temperature Pulse Rate 106 H 107 H 110 H Pulse Rate [ Left] Respiratory 22 21 Rate Blood Pressure 123/64 123/80 Blood Pressure [Left Arm] O2 Sat by Pulse 92 L 90 L Oximetry 08/31/24 08/31/24 08/31/24 07:00 07:14 07:30 Temperature 98.0 F Pulse Rate 112 H Pulse Rate [ 123 H Left] Respiratory 19 19 Rate Blood Pressure 128/78 132/79 Blood Pressure 136/87 [Left Arm] O2 Sat by Pulse 86 L 90 L Oximetry 08/31/24 08/31/24 08/31/24 08:00 08:25 08:30 Temperature Pulse Rate 116 H Pulse Rate [ Left] Respiratory 20 Rate Blood Pressure 129/78 148/84 128/88 Blood Pressure [Left Arm] O2 Sat by Pulse 91 L Oximetry 08/31/24 08/31/24 08:36 08:48 Temperature Pulse Rate 117 H 112 H Pulse Rate [ Left] Respiratory Rate Blood Pressure Blood Pressure [Left Arm] O2 Sat by Pulse Oximetry Medical Decision Making - Medical Decision Making EKG shows sinus tachycardia ventricular rate 107. [place] interval 167. QRS 85. QT 337. QTc 400 Was pt. sent in by a medical professional or institution (, PA, STEM CRUSHER, urgent care, hospital, or skilled nursing...) When possible be specific @ -No Did you speak to anyone other than the patient for history (EMS, parent, family, police, friend...)? What history was obtained from this source @ -No Did you review nursing and triage notes (agree or disagree)? Why? @ -I reviewed and agree with nursing and triage notes Were old charts reviewed (outside hosp., previous admission, EMS record, old EKG, old radiological studies, urgent care reports/EKG's, skilled nursing records)? Report findings @ -No old charts were reviewed Differential Diagnosis (chest pain, altered mental status, abdominal pain women, abdominal pain men, vaginal bleeding, weakness, fever, dyspnea, syncope, headache, dizziness, GI bleed, back pain, seizure, CVA, palpatations, mental health, musculoskeletal)? @ -MDM Differential Dyspnea: Coronary syndrome, arrhythmia, tamponade, asthma, COPD, pulmonary embolism, pneumonia, pneumothorax, pulmonary effusion, anaphylaxis, diabetic ketoacidosis, flailed chest, pulmonary contusion, diaphragmatic rupture, anemia, ne uromuscular… this is not meant to be an all-inclusive list. EKG interpreted by me (3pts min.). @ -EKG shows sinus tachycardia ventricular rate 107 KS interval 167 QRS 85 QT 337 QTc 400 X-rays interpreted by me (1pt min.). @ -Chest x-ray shows no consolidation CT interpreted by me (1pt min.). @ -None done U/S interpreted by me (1pt. min.). @ -None done What testing was considered but not performed or refused? (CT, X-rays, U/S, labs)? Why? @ -None What meds were considered but not given or refused? Why? @ -None Did you discuss the management of the patient with other professionals (pro fessionals i.e. , PA, STEM CRUSHER, lab, RT, psych nurse, geriatric social worker, security officers and guards, teacher, water resources technical officer, telephonic case manager)? Give summary @ -My attending spoke with Dr. Kahn who accepts admission Was smoking cessation discussed for >3mins.? @ -No Was critical care preformed (if so, how long)? @ -No Were there social determinants of health that impacted care today? How? (Homelessness, low income, unemployed, alcoholism, drug addiction, transportation, low edu. Level, literacy, decrease access to med. care, usp, rehab)? @ -No Was there de-escalation of care discussed even if they declined (Discuss DNR or withdrawal of care, Hospice)? DNR status @ -No What co-morbidities impacted this encounter? (DM, HTN, Smoking, COPD, CAD, Cancer, CVA, ARF, Chemo, Hep., AIDS, mental health diagnosis, sleep apnea, morbid obesity)? @ -None Was patient admitted / discharged? Hospital course, mention meds given and route, prescriptions, significant lab abnormalities, going to OR and other pertinent info. @ -64-year-old female presenting with chief complaint of shortness of breath. History of COPD. On examination there are diffuse wheezes heard on auscultation. Patient received Solu-Medrol and DuoNeb breathing treatments, she reports some improvement but still having shortness of breath. She is still hypoxic ranging from 88 to 92% on her 4 L of oxygen. Since she is not able to get her home meds at this time this puts her at higher risk for revisit with admission. Patient will be admitted for COPD exacerbation. She is agreeable with this plan. I discussed this case with my attending Dr. Frank Undiagnosed new problem with uncertain prognosis? @ -No Drug Therapy requiring intensive monitoring for toxicity (Heparin, Nitro, Insulin, Cardizem)? @ -No Were any procedures done? @ -No Diagnosis/symptom? @ -COPD exacerbation Acute, or Chronic, or Acute on Chronic? @ -Acute Uncomplicated (without systemic symptoms) or Complicated (systemic symptoms)? @ -Complicated Side effects of treatment? @ -No Exacerbation, Progression, or Severe Exacerbation? @ -Exacerbation Poses a threat to life or bodily function? How? (Chest pain, [place], ME, pneumonia, PE, COPD, DKA, ARF, appy, cholecystitis, CVA, Diverticulitis, Homicidal, Suicidal, threat to staff... and all critical care pts) @ -Yes - Lab Data Result diagrams: 08/31/24 02:37 08/31/24 02:37 Lab Results 08/31/24 08/31/24 08/31/24 Range/Units 02:37 02:37 02:37 WBC 8.82 (4.50-10.00) 10*3/uL RBC 4.17 (4.10-5.20) 10*6/uL Hgb 13.2 (12.0-15.0) g/dL Hct 42.6 (37.2-46.3) % MCV 102.2 H (80.0-97.0) fL MCH 31.7 (27.0-32.0) pg MCHC 31.0 L (32.0-37.0) g/dL Plt Count 198 (140-440) 10*3/uL MPV 12.0 (9.5-12.2) fL Immature Gran % (Auto) 1.0 % Neutrophils % 57.6 % Lymphocytes % 27.2 % Monocytes % 10.1 % Eosinophils % 3.4 % Basophils % 0.7 % Immature Gran # 0.09 H (0.00-0.04) 10*3/uL Neutrophils # 5.08 (1.80-7.70) 10*3/uL Lymphocytes # 2.40 (0.90-5.00) 10*3/uL Monocytes # 0.89 (0.20-1.00) 10*3/uL Eosinophils # 0.30 (0.04-0.35) 10*3/uL Basophils # 0.06 (0.00-0.10) 10*3/uL PT 10.4 (10.0-12.5) sec INR 0.9 (<1.2) APTT 22.0 (22.0-30.0) sec Sodium 141 (137-145) mmol/L Potassium 4.2 (3.5-5.1) mmol/L Chloride 99 (98-107) mmol/L Carbon Dioxide 34 H (22-30) mmol/L Anion Gap 8 mmol/L BUN 22 H (7-17) mg/dL Creatinine 0.97 (0.52-1.04) mg/dL Est GFR (CKD-EPI)AfAm 71 (>60 ml/min/1.73 sqM) Est GFR (CKD-EPI)NonAf 62 (>60 ml/min/1.73 sqM) Glucose 98 (74-99) mg/dL Calcium 9.4 (8.4-10.2) mg/dL Magnesium 1.7 (1.6-2.3) mg/dL Total Bilirubin 0.4 (0.2-1.3) mg/dL AST 27 (14-36) U/L ALT 15 (4-34) U/L Alkaline Phosphatase 75 (38-126) U/L Troponin I (0.000-0.034) ng/mL Total Protein 5.9 L (6.3-8.2) g/dL Albumin 3.5 (3.5-5.0) g/dL 08/31/24 Range/Units 02:37 WBC (4.50-10.00) 10*3/uL RBC (4.10-5.20) 10*6/uL Hgb (12.0-15.0) g/dL Hct (37.2-46.3) % MCV (80.0-97.0) fL MCH (27.0-32.0) pg MCHC (32.0-37.0) g/dL Plt Count (140-440) 10*3/uL MPV (9.5-12.2) fL Immature Gran % (Auto) % Neutrophils % % Lymphocytes % % Monocytes % % Eosinophils % % Basophils % % Immature Gran # (0.00-0.04) 10*3/uL Neutrophils # (1.80-7.70) 10*3/uL Lymphocytes # (0.90-5.00) 10*3/uL Monocytes # (0.20-1.00) 10*3/uL Eosinophils # (0.04-0.35) 10*3/uL Basophils # (0.00-0.10) 10*3/uL PT (10.0-12.5) sec INR (<1.2) APTT (22.0-30.0) sec Sodium (137-145) mmol/L Potassium (3.5-5.1) mmol/L Chloride (98-107) mmol/L Carbon Dioxide (22-30) mmol/L Anion Gap mmol/L BUN (7-17) mg/dL Creatinine (0.52-1.04) mg/dL Est GFR (CKD-EPI)AfAm (>60 ml/min/1.73 sqM) Est GFR (CKD-EPI)NonAf (>60 ml/min/1.73 sqM) Glucose (74-99) mg/dL Calcium (8.4-10.2) mg/dL Magnesium (1.6-2.3) mg/dL Total Bilirubin (0.2-1.3) mg/dL AST (14-36) U/L ALT (4-34) U/L Alkaline Phosphatase (38-126) U/L Troponin I <0.012 (0.000-0.034) ng/mL Total Protein (6.3-8.2) g/dL Albumin (3.5-5.0) g/dL Disposition Clinical Impression: COPD exacerbation Disposition: ADMITTED IP TO THIS HOSP Condition: Fair
[2024-08-31] MEDS: IPRATROPIUM-ALBUTEROL 3 ML NEB INHALATION STA (03:25)
[2024-08-31 03:43] LABS: INR 0.9 (<1.2); Prothrombin Time 10.4 sec (10.0-12.5)
[2024-08-31] MEDS: ACETAMINOPHEN TAB 325 MG TAB PO STA (03:47)
[2024-08-31 03:52] LABS: ALT 15 U/L (4-34); AST 27 U/L (14-36); African American GFR (CKD) 71 (>60 ml/min/1.73 sqM); Albumin 3.5 g/dL (3.5-5.0); Alkaline Phosphatase 75 U/L (38-126); Anion Gap 8 mmol/L; Blood Urea Nitrogen 22 mg/dL (7-17); Calcium 9.4 mg/dL (8.4-10.2); Carbon Dioxide 34 mmol/L (22-30); Chloride 99 mmol/L (98-107); Glucose 98 mg/dL (74-99); Magnesium 1.7 mg/dL (1.6-2.3); Non-African American GFR(CKD) 62 (>60 ml/min/1.73 sqM); Potassium 4.2 mmol/L (3.5-5.1); Sodium 141 mmol/L (137-145); Total Bilirubin 0.4 mg/dL (0.2-1.3); Total Protein 5.9 g/dL (6.3-8.2)
--- NOTE | 2024-08-31 04:35 | XR ---
EXAM: XR Chest, 2 Views CLINICAL HISTORY: ITS.REASON XR Reason: difficulty breathing TECHNIQUE: Frontal and lateral views of the chest. COMPARISON: No relevant prior studies available. FINDINGS: Lungs: Unremarkable. No consolidation. Pleural space: Unremarkable. No pneumothorax. Heart: Unremarkable. No cardiomegaly. Mediastinum: Unremarkable. Bones/joints: Unremarkable. IMPRESSION: No consolidation.
[2024-08-31] MEDS ORDERED: NALOXONE 0.4 MG/ML 1 ML VIAL IV PRN (04:42)
[2024-08-31] MEDS: IPRATROPIUM-ALBUTEROL 3 ML NEB INHALATION SCH (08:35)
[2024-08-31] MEDS ORDERED: ALBUTEROL NEBULIZED 2.5 MG/3 ML INHALATION PRN (09:44)
[2024-08-31] MEDS: cloNIDine HCL 0.1 MG TAB PO SCH (10:02)
[2024-08-31] MEDS: hydrALAZINE HCL 10 MG TAB PO SCH (10:02)
[2024-08-31] MEDS: methylPREDNISolone SOD SUCCI 125 MG/2 ML VIAL IV SCH (12:08)
[2024-08-31] MEDS: ALPRAZolam 0.5 MG TAB PO PRN (12:18)
[2024-08-31] MEDS: PROPRANOLOL 20 MG TAB PO SCH (13:39)
--- NOTE | 2024-08-31 14:23 | P.CNPUL ---
History of Present Illness Consult date: 08/31/24 Requesting physician: John E Sheet Reason for consult: COPD Chief complaint: Shortness of breath, cough, congestion History of present illness: This is a 64-year-old female patient with a known history of severe stage III COPD with an FEV1 value 40% of predicted, chronic hypoxic respiratory failure on home oxygen, gastroesophageal reflux disease, hyperlipidemia, sleep apnea syndrome, hydro nephroma status post right nephrectomy, anxiety/depression, former tobacco dependence, compression fraction of the thoracic and lumbar spine. She has had frequent admissions for COPD exacerbations. Just discharged again home on 08/06/2024. She states she was not able to come to our office for a follow-up visit due to not having a ride. She presented here again early this morning with increasing shortness of breath, cough and congestion. Chest x-ray reveals no acute pulmonary process. White count 8.8. Hemoglobin 13.2. Platelets 198. Sodium 141. Potassium 4.2. Bicarb 34. BUN 22. Creatinine 0.97. Glucose 98. She is seen today in consultation in the emergency department. Currently sitting up on a stretcher. Awake and alert in no acute distress. Maintaining O2 saturations on 6 L high flow nasal cannula. She is afebrile. Somewhat tachycardic. Blood pressure stable. Review of Systems REVIEW OF SYSTEMS: CONSTITUTIONAL: Denies any recent significant weight loss or weight gain. EYES: Denies change in vision. EARS, NOSE, MOUTH, THROAT: Denies headaches, denies sore throat. CARDIOVASCULAR: Denies chest pain, palpitations or syncopal episodes. RESPIRATORY: Positive for shortness of breath, cough, congestion no hemoptysis. GASTROINTESTINAL: Denies change in appetite, denies abdominal pain GENITOURINARY: Denies hematuria, denies infections. MUSKULOSKELETAL: Denies pain, denies swelling. INTEGUMENTARY: Denies rash, denies eczema. NEUROLOGICAL: Denies recent memory loss, no recent seizure activity. PSYCHIATRIC: Denies anxiety, denies depression. HEMATOLOGIC/LYMPHATIC: Denies anemia, denies enlarged lymph nodes. Past Medical History Past Medical History: Asthma, COPD, GERD/Reflux, Hyperlipidemia, Liver Disease, Sleep Apnea/CPAP/BIPAP Additional Past Medical History / Comment(s): hx internal hemorrhoid, kidney CA with right nephrectomy, CPAP use, colitis, IBS History of Any Multi-Drug Resistant Organisms: None Reported Past Surgical History: Hysterectomy Additional Past Surgical History / Comment(s): right nephrectomy 04/11/22 Past Anesthesia/Blood Transfusion Reactions: No Reported Reaction Past Psychological History: Anxiety, Bipolar, Depression Smoking Status: Former smoker Past Alcohol Use History: None Reported Past Drug Use History: None Reported - Past Family History Father Family Medical History: COPD, Hyperlipidemia, Hypertension Mother Family Medical History: COPD, Hyperlipidemia, Hypertension Medications and Allergies Home Medications Medication Instructions Recorded Confirmed Type Ziprasidone [Geodon] 40 mg PO DAILY@0500 02/07/14 08/31/24 History Albuterol Inhaler [Ventolin Hfa 2 puff INHALATION RT-Q6H PRN 11/07/17 08/31/24 History Inhaler] Atorvastatin Calcium [Lipitor] 40 mg PO HS@1700 07/03/22 08/31/24 History Levothyroxine Sodium [Synthroid] 112 mcg PO DAILY@0500 07/03/22 08/31/24 History Ziprasidone [Geodon] 60 mg PO HS@1700 07/03/22 08/31/24 History buPROPion HCL [Wellbutrin SR] 200 mg PO BID@0500,1700 07/03/22 08/31/24 History Propranolol [Inderal] 20 mg PO BID@0500,1700 03/14/23 08/31/24 History HYDROcodone/APAP 7.5-325MG [[place] 1 tab PO Q8H PRN 09/09/23 08/31/24 History 7.5-325] Ipratropium-Albuterol Nebulize 3 ml INHALATION RT-QID 09/09/23 08/31/24 History [Duoneb 0.5 mg-3 mg/3 ml Soln] Magnesium Oxide [Mag-Ox] 400 mg PO BID@0500,1700 09/09/23 08/31/24 History Pantoprazole [Protonix] 40 mg PO DAILY@0500 09/09/23 08/31/24 History ALPRAZolam [Xanax] 0.5 mg PO DAILY PRN 04/17/24 08/31/24 History Budesonide 0.5 mg INHALATION RT-BID@0500,1700 04/17/24 08/31/24 History Multivitamins, Thera [Multivitamin 1 tab PO DAILY@0500 04/17/24 08/31/24 History (formulary)] cloNIDine HCL [Catapres] 0.1 mg PO TID@0500,1100,1700 04/17/24 08/31/24 History hydrALAZINE HCL [Apresoline] 10 mg PO TID@0500,1100,1700 04/17/24 08/31/24 History Formoterol Fumarate [Perforomist] 20 mcg INHALATION RT-BID@0500,1700 07/27/24 08/31/24 History Metamucil Gummy 1 tab PO HS@1700 07/27/24 08/31/24 History Sennosides [Senokot] 8.6 mg PO DAILY PRN 07/27/24 08/31/24 History Ipratropium-Albuterol Nebulize 3 ml INHALATION RT-Q2H PRN each 08/03/24 08/31/24 Rx [Duoneb 0.5 mg-3 mg/3 ml Soln] Allergies Allergy/AdvReac Type Severity Reaction Status Date / Time codeine Allergy Rash/Hives Verified 08/31/24 08:57 doxycycline Allergy Rash/Hives Verified 08/31/24 08:57 Penicillins Allergy Rash/Hives Verified 08/31/24 08:57 on feet Sulfa (Sulfonamide Allergy Rash/Hives Verified 08/31/24 08:57 Antibiotics) ibuprofen [From Motrin] AdvReac Nausea & Verified 08/31/24 08:57 Vomiting Physical Exam Vitals: Vital Signs Temp Pulse Pulse Resp BP BP Pulse Ox 08/31/24 13:39 98.6 F 125 H 16 119/74 90 L 08/31/24 12:08 120 H 08/31/24 11:55 116 H 08/31/24 09:58 123 H 20 08/31/24 09:43 93 L 08/31/24 08:48 112 H 08/31/24 08:36 117 H 08/31/24 08:30 116 H 20 128/88 91 L 08/31/24 08:25 148/84 08/31/24 08:00 129/78 08/31/24 07:30 132/79 08/31/24 07:14 112 H 19 128/78 90 L 08/31/24 07:00 98.0 F 123 H 19 136/87 86 L 08/31/24 05:26 110 H 21 123/80 90 L 08/31/24 03:37 107 H 22 123/64 92 L 08/31/24 03:34 106 H 08/31/24 03:27 104 H 08/31/24 02:28 22 08/31/24 02:02 98.3 F 111 H 22 134/81 95 Intake and Output 08/30/24 08/31/24 08/31/24 22:59 06:59 14:59 Other: # Bowel Movements 1 Weight 68.039 kg 68.039 kg GENERAL EXAM: Alert, active, 64-year-old female, on 6 L high flow nasal cannula, comfortable in no apparent distress. HEAD: Normocephalic. EYES: Normal reaction of pupils, equal size. NOSE: Clear with pink turbinates. THROAT: No erythema or exudates. NECK: No masses, no JVD. CHEST: No chest wall deformity. LUNGS: Equal air entry with bilateral end expiratory wheeze. CVS: S1 and S2 normal with no audible murmur, regular rhythm. ABDOMEN: No hepatosplenomegaly, normal bowel sounds, no guarding or rigidity. SPINE: No scoliosis or deformity SKIN: No rashes CENTRAL NERVOUS SYSTEM: No focal deficits, tone is normal in all 4 extremities. EXTREMITIES: There is no peripheral edema. No clubbing, no cyanosis. Peripheral pulses are intact. Results - Laboratory Findings CBC and BMP: 08/31/24 02:37 08/31/24 02:37 PT/INR, D-dimer PT 10.4 sec (10.0-12.5) 08/31/24 02:37 INR 0.9 (<1.2) 08/31/24 02:37 Abnormal lab findings: Abnormal Labs 08/31/24 08/31/24 02:37 02:37 MCV 102.2 H MCHC 31.0 L Immature Gran # 0.09 H Carbon Dioxide 34 H BUN 22 H Total Protein 5.9 L - Diagnostic Findings Chest x-ray: image reviewed Assessment and Plan Assessment: Acute on chronic hypoxic respiratory failure secondary to acute exacerbation chronic obstructive pulmonary disease Severe stage III chronic obstructive pulmonary disease with FEV1 value of 40% of predicted Chronic hypoxemic respiratory failure on home oxygen Frequent readmissions to the hospital for COPD exacerbations most recently discharged August 06, 2024 History of gastroesophageal reflux disease Hyperlipidemia Obstructive sleep apnea Hydronephrosis status post right nephrectomy History of anxiety/depression Former heavy tobacco dependence History of compression fracture of thoracic and upper lumbar spine Plan: The patient was seen and evaluated Chest x-ray, labs and medications reviewed Currently on 6 L high flow nasal cannula Titrate down the FiO2 as tolerated Initiated on DuoNeb inhalations Initiated on Pulmicort and Perforomist inhalations Initiated on IV Solu-Medrol Heparin for DVT prophylaxis Resume her home medications Xanax as needed for her anxiety We will continue to follow and make further recommendations based on her clinical status I have personally seen and examined the patient, performed the documentation and the assessment and plan as written. Number of minutes spent on the visit: 20 Dictation was produced using [employer] dictation software. Please excuse any grammatical, word or spelling errors. Time with Patient: Greater than 30
[2024-08-31] MEDS: ACETAMINOPHEN TAB 325 MG TAB PO PRN (15:11)
[2024-08-31] MEDS ORDERED: PROPRANOLOL 20 MG TAB PO SCH (17:00)
[2024-08-31] MEDS: MAGNESIUM OXIDE 400 MG TAB PO SCH (17:30)
[2024-08-31] MEDS: ATORVASTATIN 40 MG TAB PO SCH (17:30)
[2024-08-31] MEDS: buPROPion SR 100 MG TABLET.ER PO SCH (17:30)
[2024-08-31] MEDS: ZIPRASIDONE 60 MG CAP PO SCH (17:30)
[2024-08-31] MEDS ORDERED: DEXTROSE 50% SYRINGE 50 ML IVP PRN ×2 (18:18)
--- NOTE | 2024-08-31 18:21 | P.HPIM ---
History of Present Illness Patient is a pleasant 64 years old female with past medical history of COPD and oxygen at home. Presents because of worsening dyspnea and coughing with no chest pain. Her phlegm is clear to light yellow She has some headache but no weakness numbness no urinary complaint. No abdominal problem vomiting or diarrhea At home she uses 4 L of oxygen currently she is on 8 L and she is afebrile At home she uses few cigarettes she was counseled to quit and she agrees but declines nicotine patch. No alcohol or illicit drugs. She is hemodynamically stable other than that. Labs including CBC, BMP LFT INR troponin were unremarkable. EKG shows sinus tachycardia 107 with anterior fascicular block and no significant ST-T changes. Chest x-ray showing no acute consolidation, I reviewed the chest x-ray by myself and agree with it. Patient was started on IV Solu-Medrol with pulmonary team consult Review of Systems Review of systems CONSTITUTIONAL: No fever, no malaise, no fatigue. HEENT: No recent visual problems or hearing problems. Denied any sore throat. CARDIOVASCULAR: No orthopnea, PND, no palpitations, no syncope. PULMONARY: No chest wall tenderness, no hemoptysis. GASTROINTESTINAL: No diarrhea, no nausea, no vomiting, no abdominal pain. Normoactive bowel sounds. NEUROLOGICAL: No headaches, no weakness, no numbness. HEMATOLOGICAL: Denies any bleeding or petechiae. GENITOURINARY: Denies any burning micturition, frequency, or urgency. MUSCULOSKELETAL/RHEUMATOLOGICAL: Denies any joint pain, swelling, or any muscle pain. ENDOCRINE: Denies any polyuria or polydipsia. Past Medical History Past Medical History: Asthma, COPD, GERD/Reflux, Hyperlipidemia, Liver Disease, Sleep Apnea/CPAP/BIPAP Additional Past Medical History / Comment(s): hx internal hemorrhoid, kidney CA with right nephrectomy, CPAP use, colitis, IBS History of Any Multi-Drug Resistant Organisms: None Reported Past Surgical History: Hysterectomy Additional Past Surgical History / Comment(s): right nephrectomy 04/11/22 Past Anesthesia/Blood Transfusion Reactions: No Reported Reaction Past Psychological History: Anxiety, Bipolar, Depression Smoking Status: Former smoker Past Alcohol Use History: None Reported Past Drug Use History: None Reported - Past Family History Father Family Medical History: COPD, Hyperlipidemia, Hypertension Mother Family Medical History: COPD, Hyperlipidemia, Hypertension Medications and Allergies Home Medications Medication Instructions Recorded Confirmed Type Ziprasidone [Geodon] 40 mg PO DAILY@0500 02/07/14 08/31/24 History Albuterol Inhaler [Ventolin Hfa 2 puff INHALATION RT-Q6H PRN 11/07/17 08/31/24 History Inhaler] Atorvastatin Calcium [Lipitor] 40 mg PO HS@1700 07/03/22 08/31/24 History Levothyroxine Sodium [Synthroid] 112 mcg PO DAILY@0500 07/03/22 08/31/24 History Ziprasidone [Geodon] 60 mg PO HS@1700 07/03/22 08/31/24 History buPROPion HCL [Wellbutrin SR] 200 mg PO BID@0500,1700 07/03/22 08/31/24 History Propranolol [Inderal] 20 mg PO BID@0500,1700 03/14/23 08/31/24 History HYDROcodone/APAP 7.5-325MG [[place] 1 tab PO Q8H PRN 09/09/23 08/31/24 History 7.5-325] Ipratropium-Albuterol Nebulize 3 ml INHALATION RT-QID 09/09/23 08/31/24 History [Duoneb 0.5 mg-3 mg/3 ml Soln] Magnesium Oxide [Mag-Ox] 400 mg PO BID@0500,1700 09/09/23 08/31/24 History Pantoprazole [Protonix] 40 mg PO DAILY@0500 09/09/23 08/31/24 History ALPRAZolam [Xanax] 0.5 mg PO DAILY PRN 04/17/24 08/31/24 History Budesonide 0.5 mg INHALATION RT-BID@0500,1700 04/17/24 08/31/24 History Multivitamins, Thera [Multivitamin 1 tab PO DAILY@0500 04/17/24 08/31/24 History (formulary)] cloNIDine HCL [Catapres] 0.1 mg PO TID@0500,1100,1700 04/17/24 08/31/24 History hydrALAZINE HCL [Apresoline] 10 mg PO TID@0500,1100,1700 04/17/24 08/31/24 History Formoterol Fumarate [Perforomist] 20 mcg INHALATION RT-BID@0500,1700 07/27/24 08/31/24 History Metamucil Gummy 1 tab PO HS@1700 07/27/24 08/31/24 History Sennosides [Senokot] 8.6 mg PO DAILY PRN 07/27/24 08/31/24 History Ipratropium-Albuterol Nebulize 3 ml INHALATION RT-Q2H PRN each 08/03/24 08/31/24 Rx [Duoneb 0.5 mg-3 mg/3 ml Soln] Allergies Allergy/AdvReac Type Severity Reaction Status Date / Time codeine Allergy Rash/Hives Verified 08/31/24 08:57 doxycycline Allergy Rash/Hives Verified 08/31/24 08:57 Penicillins Allergy Rash/Hives Verified 08/31/24 08:57 on feet Sulfa (Sulfonamide Allergy Rash/Hives Verified 08/31/24 08:57 Antibiotics) ibuprofen [From Motrin] AdvReac Nausea & Verified 08/31/24 08:57 Vomiting Physical Exam Vitals: Vital Signs Temp Pulse Pulse Resp BP BP Pulse Ox 08/31/24 09:58 123 H 20 08/31/24 09:43 93 L 08/31/24 08:48 112 H 08/31/24 08:36 117 H 08/31/24 08:30 116 H 20 128/88 91 L 08/31/24 08:25 148/84 08/31/24 08:00 129/78 08/31/24 07:30 132/79 08/31/24 07:14 112 H 19 128/78 90 L 08/31/24 07:00 98.0 F 123 H 19 136/87 86 L 08/31/24 05:26 110 H 21 123/80 90 L 08/31/24 03:37 107 H 22 123/64 92 L 08/31/24 03:34 106 H 08/31/24 03:27 104 H 08/31/24 02:28 22 08/31/24 02:02 98.3 F 111 H 22 134/81 95 Intake and Output 08/30/24 08/31/24 08/31/24 22:59 06:59 14:59 Other: Weight 68.039 kg 68.039 kg GENERAL: The patient is alert and oriented x3, not in any acute distress. Well developed, well nourished. HEENT: Pupils are round and equally reacting to light. EOMI. No scleral icterus. No conjunctival pallor. Normocephalic, atraumatic. No pharyngeal erythema. No thyromegaly. CARDIOVASCULAR: S1 and S2 present. No murmurs, rubs, or gallops. -PULMONARY: Chest is clear to auscultation, bilateral scattered wheezing , no cr ackles. ABDOMEN: Soft, nontender, nondistended, normoactive bowel sounds. No palpable organomegaly. MUSCULOSKELETAL: No joint swelling or deformity. EXTREMITIES: No cyanosis, clubbing, or pedal edema. NEUROLOGICAL: Gross neurological examination did not reveal any focal deficits. SKIN: No rashes. no petechiae. Results CBC & Chem 7: 08/31/24 02:37 08/31/24 02:37 Labs: Abnormal Lab Results - Last 24 Hours (Table) 08/31/24 08/31/24 Range/Units 02:37 02:37 MCV 102.2 H (80.0-97.0) fL MCHC 31.0 L (32.0-37.0) g/dL Immature Gran # 0.09 H (0.00-0.04) 10*3/uL Carbon Dioxide 34 H (22-30) mmol/L BUN 22 H (7-17) mg/dL Total Protein 5.9 L (6.3-8.2) g/dL Thrombosis Risk Factor Assmnt - Choose All That Apply Any of the Below Risk Factors Present?: Yes Each Factor Represents 1 point: Obesity (BMI >25) Other Risk Factors: Yes Each Risk Factor Represents 2 Points: Age 61-74 years Thrombosis Risk Factor Assessment Total Risk Factor Score: 3 Thrombosis Risk Factor Assessment Level: Moderate Risk Assessment and Plan Assessment: Acute COPD exacerbation Acute on chronic hypoxic respiratory failure GERD Hyperlipidemia Sleep apnea Nicotine dependence Bipolar depression anxiety Plan: Continue with IV Solu-Medrol Continue with bronchodilator Oxygen therapy Pulmonary team consult Resume home medication Monitor glucose Patient counseled to quit smoking Labs and medication were reviewed.. Continue same treatment. Continue with symptomatic treatment. Resume home medication. Monitor labs and vitals. DVT and GI prophylaxis. Further recommendations as per clinical course of the patient DVT prophylaxis: Subcutaneous heparin GI Prophylaxis: Pepcid PT/OT: Pending Prognosis is guarded
[2024-08-31] MEDS: BUDESONIDE 1 MG/2 ML NEBU INHALATION SCH (20:07)
[2024-08-31] MEDS: FORMOTEROL FUMARATE 20 MCG/2 ML NEBU INHALATION SCH (20:07)
[2024-08-31 21:47] LABS: Glucose,Whole Blood 255 mg/dL (70-110)
[2024-08-31] MEDS: HEPARIN SODIUM,PORCINE 5,000 UNIT/ML 1 ML VIAL SQ SCH (21:48)
[2024-08-31] MEDS: INSULIN LISPRO (HumaLOG) 100 UNIT/ML 10 mL VL SQ SCH (21:49)
[2024-09-01] MEDS: LEVOTHYROXINE 112 MCG TAB PO SCH (05:37)
[2024-09-01] MEDS: ZIPRASIDONE 40 MG CAP PO SCH (06:19)
[2024-09-01 06:53] LABS: Glucose,Whole Blood 113 mg/dL (70-110)
[2024-09-01] MEDS: HYDROcodone/APAP 7.5-325MG 1 EACH TAB PO PRN (06:58)
[2024-09-01 11:13] LABS: Glucose,Whole Blood 95 mg/dL (70-110)
--- NOTE | 2024-09-01 14:26 | P.PN ---
Subjective Progress Note Date: 09/01/24 This is a 64-year-old female patient with a known history of severe stage III COPD with an FEV1 value 40% of predicted, chronic hypoxic respiratory failure on home oxygen, gastroesophageal reflux disease, hyperlipidemia, sleep apnea syndrome, hydro nephroma status post right nephrectomy, anxiety/depression, former tobacco dependence, compression fraction of the thoracic and lumbar spine. She has had frequent admissions for COPD exacerbations. Just discharged again home on 08/06/2024. She states she was not able to come to our office for a follow-up visit due to not having a ride. She presented here again early this morning with increasing shortness of breath, cough and congestion. Chest x-ray reveals no acute pulmonary process. White count 8.8. Hemoglobin 13.2. Platelets 198. Sodium 141. Potassium 4.2. Bicarb 34. BUN 22. Creatinine 0.97. Glucose 98. She is seen today in consultation in the emergency department. Currently sitting up on a stretcher. Awake and alert in no acute distress. Maintaining O2 saturations on 6 L high flow nasal cannula. She is afebrile. Somewhat tachycardic. Blood pressure stable. The patient is seen today September 01, 2024 in follow-up on the regular medical floor. She is currently sitting up in bed. Awake and alert in no acute distress. Breathing a bit better today compared to yesterday. Not quite back to her baseline. She is requiring 6 L high flow nasal cannula to maintain O2 saturations in the 90s. She has been afebrile. Hemodynamically stable. Glucose 95. She remains on DuoNeb inhalations, Pulmicort and performance inhalations, Solu-Medrol. Heparin for DVT prophylaxis. Continued on her home medications. Objective - Vital Signs Vital signs: Vital Signs Temp 98.1 F 09/01/24 08:00 Pulse 100 09/01/24 13:18 Resp 18 09/01/24 08:33 BP 115/73 09/01/24 08:00 Pulse Ox 95 09/01/24 10:14 FiO2 Intake & Output 08/31/24 09/01/24 09/01/24 18:59 06:59 18:59 Intake Total 2400 Balance 2400 Weight 68.039 kg Intake: Oral 2400 Other: Voiding Method Bedside Commode Bedside Commode # Voids 3 6 # Bowel Movements 3 1 - Exam GENERAL EXAM: Alert, 64-year-old female, sitting up at the bedside, on 6 L high flow nasal cannula, fairly comfortable in no apparent distress. HEAD: Normocephalic. EYES: Normal reaction of pupils, equal size. NOSE: Clear with pink turbinates. THROAT: No erythema or exudates. NECK: No masses, no JVD. CHEST: No chest wall deformity. LUNGS: Equal air entry with bilateral end expiratory wheeze, diminished. CVS: S1 and S2 normal with no audible murmur, regular rhythm. ABDOMEN: No hepatosplenomegaly, normal bowel sounds, no guarding or rigidity. SPINE: No scoliosis or deformity SKIN: No rashes CENTRAL NERVOUS SYSTEM: No focal deficits, tone is normal in all 4 extremities. EXTREMITIES: There is no peripheral edema. No clubbing, no cyanosis. Peripheral pulses are intact. - Labs CBC & Chem 7: 08/31/24 02:37 08/31/24 02:37 Labs: Abnormal Lab Results - Last 24 Hours (Table) 08/31/24 09/01/24 Range/Units 21:43 06:51 POC Glucose (mg/dL) 255 H 113 H (70-110) mg/dL Assessment and Plan Assessment: Acute on chronic hypoxic respiratory failure secondary to acute exacerbation chronic obstructive pulmonary disease Severe stage III chronic obstructive pulmonary disease with FEV1 value of 40% of predicted Chronic hypoxemic respiratory failure on home oxygen Frequent readmissions to the hospital for COPD exacerbations most recently discharged August 06, 2024 History of gastroesophageal reflux disease Hyperlipidemia Obstructive sleep apnea Hydronephrosis status post right nephrectomy History of anxiety/depression Former heavy tobacco dependence History of compression fracture of thoracic and upper lumbar spine Plan: The patient was seen and evaluated Labs and medications reviewed Currently on 6 L high flow nasal cannula Titrate down the FiO2 as tolerated Continue DuoNeb inhalations Continue Pulmicort and Perforomist inhalations Continue IV Solu-Medrol Heparin for DVT prophylaxis We will continue to follow I have personally seen and examined the patient, performed the documentation and the assessment and plan as written. Number of minutes spent on the visit: 10 Dictation was produced using [employer] software. Please excuse any grammatical, word or spelling errors.
[2024-09-01 16:47] LABS: Glucose,Whole Blood 124 mg/dL (70-110)
[2024-09-01 20:36] LABS: Glucose,Whole Blood 126 mg/dL (70-110)
--- NOTE | 2024-09-02 00:23 | P.PN ---
Subjective Patient is a pleasant 64 years old female with past medical history of COPD and oxygen at home. Presents because of worsening dyspnea and coughing with no chest pain. Her phlegm is clear to light yellow She has some headache but no weakness numbness no urinary complaint. No abdominal problem vomiting or diarrhea At home she uses 4 L of oxygen currently she is on 8 L and she is afebrile At home she uses few cigarettes she was counseled to quit and she agrees but declines nicotine patch. No alcohol or illicit drugs. She is hemodynamically stable other than that. Labs including CBC, BMP LFT INR troponin were unremarkable. EKG shows sinus tachycardia 107 with anterior fascicular block and no significant ST-T changes. Chest x-ray showing no acute consolidation, I reviewed the chest x-ray by myself and agree with it. Patient was started on IV Solu-Medrol with pulmonary team consult 09/01 Patient breathing is better She was regular diet on oxygen 2 L saturating 94 to 95% On steroids and bronchodilator Objective - Vital Signs Vital signs: Vital Signs Temp 98.3 F 09/01/24 19:40 Pulse 100 09/01/24 21:27 Resp 16 09/01/24 19:40 BP 93/60 09/01/24 19:40 Pulse Ox 91 L 09/01/24 19:40 FiO2 Intake & Output 09/01/24 09/01/24 09/02/24 06:59 18:59 06:59 Intake Total 2400 240 Balance 2400 240 Intake: Oral 2400 240 Other: Voiding Method Bedside Commode Bedside Commode Bedside Commode # Voids 6 4 # Bowel Movements 1 3 - Exam GENERAL: The patient is alert and oriented x3, not in any acute distress. Well developed, well nourished. HEENT: Pupils are round and equally reacting to light. EOMI. No scleral icterus. No conjunctival pallor. Normocephalic, atraumatic. No pharyngeal erythema. No thyromegaly. CARDIOVASCULAR: S1 and S2 present. No murmurs, rubs, or gallops. -PULMONARY: Chest is clear to auscultation, bilateral scattered wheezing , no crackles. ABDOMEN: Soft, nontender, nondistended, normoactive bowel sounds. No palpable organomegaly. MUSCULOSKELETAL: No joint swelling or deformity. EXTREMITIES: No cyanosis, clubbing, or pedal edema. NEUROLOGICAL: Gross neurological examination did not reveal any focal deficits. SKIN: No rashes. no petechiae. - Labs CBC & Chem 7: 08/31/24 02:37 08/31/24 02:37 Labs: Abnormal Lab Results - Last 24 Hours (Table) 09/01/24 09/01/24 09/01/24 Range/Units 06:51 16:46 20:35 POC Glucose (mg/dL) 113 H 124 H 126 H (70-110) mg/dL Assessment and Plan Assessment: Acute COPD exacerbation Acute on chronic hypoxic respiratory failure GERD Hyperlipidemia Sleep apnea Nicotine dependence Bipolar depression anxiety Plan: Continue with IV Solu-Medrol Continue with bronchodilator Oxygen therapy Pulmonary team consult Resume home medication Monitor glucose Patient counseled to quit smoking Labs and medication were reviewed.. Continue same treatment. Continue with symptomatic treatment. Resume home medication. Monitor labs and vitals. DVT and GI prophylaxis. Further recommendations as per clinical course of the patient DVT prophylaxis: Subcutaneous heparin GI Prophylaxis: Pepcid PT/OT: Pending Prognosis is guarded
[2024-09-02] MEDS: IPRATROPIUM-ALBUTEROL 3 ML NEB INHALATION PRN (05:29)
[2024-09-02 06:22] LABS: Glucose,Whole Blood 106 mg/dL (70-110)
[2024-09-02] MEDS: SENNOSIDES 8.6 MG TAB PO PRN (10:13)
[2024-09-02 11:53] LABS: Glucose,Whole Blood 97 mg/dL (70-110)
--- NOTE | 2024-09-02 12:35 | XR ---
EXAMINATION TYPE: XR chest 1V portable DATE OF EXAM: 09/02/2024 12:31 PM COMPARISON: Chest radiographs from 08/31/2024. CLINICAL INDICATION: Female, 64 years old with history of shortness of breath; [facility] TECHNIQUE: XR chest 1V portable Frontal view of the chest. FINDINGS: Lungs/Pleura: There is no evidence of pleural effusion, focal consolidation, or pneumothorax. Pulmonary vascularity: Unremarkable. Heart/mediastinum: Cardiomediastinal silhouette is unremarkable. Musculoskeletal: No acute osseous pathology. Other findings: None IMPRESSION: No acute cardiopulmonary disease/process. [facility], , 09/02/2024 12:32 PM
--- NOTE | 2024-09-02 16:20 | P.PN ---
Subjective Progress Note Date: 09/02/24 This is a 64-year-old female patient with a known history of severe stage III COPD with an FEV1 value 40% of predicted, chronic hypoxic respiratory failure on home oxygen, gastroesophageal reflux disease, hyperlipidemia, sleep apnea syndrome, hydro nephroma status post right nephrectomy, anxiety/depression, former tobacco dependence, compression fraction of the thoracic and lumbar spine. She has had frequent admissions for COPD exacerbations. Just discharged again home on 08/06/2024. She states she was not able to come to our office for a follow-up visit due to not having a ride. She presented here again early this morning with increasing shortness of breath, cough and congestion. Chest x-ray reveals no acute pulmonary process. White count 8.8. Hemoglobin 13.2. Platelets 198. Sodium 141. Potassium 4.2. Bicarb 34. BUN 22. Creatinine 0.97. Glucose 98. She is seen today in consultation in the emergency department. Currently sitting up on a stretcher. Awake and alert in no acute distress. Maintaining O2 saturations on 6 L high flow nasal cannula. She is afebrile. Somewhat tachycardic. Blood pressure stable. The patient is seen today September 01, 2024 in follow-up on the regular medical floor. She is currently sitting up in bed. Awake and alert in no acute distress. Breathing a bit better today compared to yesterday. Not quite back to her baseline. She is requiring 6 L high flow nasal cannula to maintain O2 saturations in the 90s. She has been afebrile. Hemodynamically stable. Glucose 95. She remains on DuoNeb inhalations, Pulmicort and performance inhalations, Solu-Medrol. Heparin for DVT prophylaxis. Continued on her home medications. The patient is seen today September 02, 2024 in follow-up on the regular medical floor. She is awake and alert in no acute distress. Still having episodes of hypoxemia and shortness of breath. She is currently on 6 L high flow nasal cannula to maintain O2 saturation in the 90s. She is afebrile. Hemodynamically stable. Glucose 106. She remains on DuoNeb inhalations, Pulmicort and Perforomist inhalations, IV Solu-Medrol. Heparin for DVT prophylaxis. Objective - Vital Signs Vital signs: Vital Signs Temp 98.3 F 09/02/24 13:18 Pulse 104 H 09/02/24 15:52 Resp 17 09/02/24 13:18 BP 113/63 09/02/24 13:18 Pulse Ox 92 L 09/02/24 13:18 FiO2 Intake & Output 09/01/24 09/02/24 09/02/24 18:59 06:59 18:59 Intake Total 1680 Balance 1680 Intake: Oral 1680 Other: Voiding Method Bedside Commode Bedside Commode Bedside Commode # Voids 4 5 3 # Bowel Movements 3 - Exam GENERAL EXAM: Alert, 64-year-old female, resting in bed, on 6 L high flow nasal cannula, comfortable in no apparent distress. HEAD: Normocephalic. EYES: Normal reaction of pupils, equal size. NOSE: Clear with pink turbinates. THROAT: No erythema or exudates. NECK: No masses, no JVD. CHEST: No chest wall deformity. LUNGS: Equal air entry with bilateral end expiratory wheeze, diminished. CVS: S1 and S2 normal with no audible murmur, regular rhythm. ABDOMEN: No hepatosplenomegaly, normal bowel sounds, no guarding or rigidity. SPINE: No scoliosis or deformity SKIN: No rashes CENTRAL NERVOUS SYSTEM: No focal deficits, tone is normal in all 4 extremities. EXTREMITIES: There is no peripheral edema. No clubbing, no cyanosis. Peripheral pulses are intact. - Labs CBC & Chem 7: 08/31/24 02:37 08/31/24 02:37 Labs: Abnormal Lab Results - Last 24 Hours (Table) 09/01/24 09/01/24 Range/Units 16:46 20:35 POC Glucose (mg/dL) 124 H 126 H (70-110) mg/dL Assessment and Plan Assessment: Acute on chronic hypoxic respiratory failure secondary to acute exacerbation chronic obstructive pulmonary disease Severe stage III chronic obstructive pulmonary disease with FEV1 value of 40% of predicted Chronic hypoxemic respiratory failure on home oxygen Frequent readmissions to the hospital for COPD exacerbations most recently discharged August 06, 2024 History of gastroesophageal reflux disease Hyperlipidemia Obstructive sleep apnea Hydronephrosis status post right nephrectomy History of anxiety/depression Former heavy tobacco dependence History of compression fracture of thoracic and upper lumbar spine Plan: The patient was seen and evaluated Medications reviewed Currently on 6 L high flow nasal cannula Titrate down the FiO2 as tolerated Continue DuoNeb inhalations Continue Pulmicort and Perforomist inhalations Continue IV Solu-Medrol Heparin for DVT prophylaxis Increase her activity as tolerated We will continue to follow I have personally seen and examined the patient, performed the documentation and the assessment and plan as written. Number of minutes spent on the visit: 10 Dictation was produced using [employer] dictation software. Please excuse any grammatical, word or spelling errors.
[2024-09-02 16:35] LABS: Glucose,Whole Blood 120 mg/dL (70-110)
[2024-09-02 20:02] LABS: Glucose,Whole Blood 131 mg/dL (70-110)
--- NOTE | 2024-09-03 02:00 | PN ---
PROGRESS NOTE DATE OF SERVICE: 09/02/2024 SUBJECTIVE: This 64-year-old woman was admitted with COPD acute exacerbation, closely monitored at this time. The most recent chest x-ray was reviewed, shows no consolidation. OBJECTIVE: VITAL SIGNS: Pulse is 90, blood pressure 140/87, and respirations 20. HEENT: Conjunctivae normal. NECK: No JVD. CARDIOVASCULAR: S1, S2. RESPIRATIONS: Bilateral scattered rhonchi. ABDOMEN: Soft. NERVOUS SYSTEM: Nonfocal. LABORATORY DATA: Reviewed. ASSESSMENT: 1. Chronic obstructive pulmonary disease acute exacerbation. 2. Acute on chronic hypoxic respiratory failure. 3. Rule out congestive heart failure. 4. Gastroesophageal reflux disease. 5. Hyperlipidemia. 6. History of sleep apnea. RECOMMENDATIONS: Recommended to continue current management and continue symptomatic treatment. Otherwise, at this time, I recommend continue with the current medications. Continue with intensive bronchodilator treatment. I would also recommend repeat chest x-ray to rule out the possibility of CHF. IV steroids. Monitor blood sugars closely. Guarded prognosis because of multiple complex medical issues. Further recommendations to follow. MMODL / IJN: [id number] /
[2024-09-03 06:11] LABS: Glucose,Whole Blood 124 mg/dL (70-110)
[2024-09-03 08:10] LABS: Basophils # (A) 0.08 X 10*3/uL (0.00-0.10); Basophils % (A) 0.5 %; Eosinophils # (A) 0 X 10*3/uL (0.04-0.35); Eosinophils % (A) 0 %; HCT 40.5 % (37.2-46.3); HGB 12.2 g/dL (12.0-15.0); Lymphocytes # (A) 1.12 X 10*3/uL (0.90-5.00); Lymphocytes % (A) 6.7 %; MCH 31.4 pg (27.0-32.0); MCHC 30.1 g/dL (32.0-37.0); MCV 104.4 FL (80.0-97.0); Mean Platelet Volume 12.3 FL (9.5-12.2); Monocytes # (A) 0.85 X 10*3/uL (0.20-1.00); Monocytes % (A) 5.1 %; NRBC Per 100 WBC 0 X 10*3/uL (0.00-0.01); Neutrophils # (A) 14.15 X 10*3/uL (1.80-7.70); Neutrophils % (A) 84.7 %; Platelet Count 204 X 10*3/uL (140-440); RBC 3.88 X 10*6/uL (4.10-5.20); RDW 13.5 % (11.5-14.5)
[2024-09-03 08:23] LABS: BUN/Creat Ratio 27.75 Ratio (12.00-20.00); Blood Urea Nitrogen 33.3 mg/dL (9.0-27.0); Calcium 8.5 mg/dL (8.7-10.3); Carbon Dioxide 34.1 mmol/L (21.6-31.8); Chloride 104 mmol/L (96-109); Glucose 139 mg/dL (70-110); Potassium 4.2 mmol/L (3.5-5.5); Sodium 144 mmol/L (135-145)
[2024-09-03 12:19] LABS: Glucose,Whole Blood 106 mg/dL (70-110)
--- NOTE | 2024-09-03 13:25 | P.PN ---
Subjective Progress Note Date: 09/03/24 This is a 64-year-old female patient with a known history of severe stage III COPD with an FEV1 value 40% of predicted, chronic hypoxic respiratory failure on home oxygen, gastroesophageal reflux disease, hyperlipidemia, sleep apnea syndrome, hydro nephroma status post right nephrectomy, anxiety/depression, former tobacco dependence, compression fraction of the thoracic and lumbar spine. She has had frequent admissions for COPD exacerbations. Just discharged again home on 08/06/2024. She states she was not able to come to our office for a follow-up visit due to not having a ride. She presented here again early this morning with increasing shortness of breath, cough and congestion. Chest x-ray reveals no acute pulmonary process. White count 8.8. Hemoglobin 13.2. Platelets 198. Sodium 141. Potassium 4.2. Bicarb 34. BUN 22. Creatinine 0.97. Glucose 98. She is seen today in consultation in the emergency department. Currently sitting up on a stretcher. Awake and alert in no acute distress. Maintaining O2 saturations on 6 L high flow nasal cannula. She is afebrile. Somewhat tachycardic. Blood pressure stable. The patient is seen today September 01, 2024 in follow-up on the regular medical floor. She is currently sitting up in bed. Awake and alert in no acute distress. Breathing a bit better today compared to yesterday. Not quite back to her baseline. She is requiring 6 L high flow nasal cannula to maintain O2 saturations in the 90s. She has been afebrile. Hemodynamically stable. Glucose 95. She remains on DuoNeb inhalations, Pulmicort and performance inhalations, Solu-Medrol. Heparin for DVT prophylaxis. Continued on her home medications. The patient is seen today September 02, 2024 in follow-up on the regular medical floor. She is awake and alert in no acute distress. Still having episodes of hypoxemia and shortness of breath. She is currently on 6 L high flow nasal cannula to maintain O2 saturation in the 90s. She is afebrile. Hemodynamically stable. Glucose 106. She remains on DuoNeb inhalations, Pulmicort and Perforomist inhalations, IV Solu-Medrol. Heparin for DVT prophylaxis. The patient is seen today September 03, 2024 in follow-up on the regular medical floor. She is currently up in a chair at the bedside. Awake and alert in no acute distress. Maintaining good O2 saturations in the 90s on 5 L/min per nasal cannula. She is afebrile. Hemodynamically stable. Chest x-ray again shows no acute cardiopulmonary process. White count 16.7. Hemoglobin 12.2. Platelets 204. Sodium 144. Potassium 4.2. Bicarb 34. BUN 33. Creatinine 1.2. Glucose 139. She remains on DuoNeb inhalations, Pulmicort and performance inhalations, IV Solu-Medrol. Heparin for DVT prophylaxis. Objective - Vital Signs Vital signs: Vital Signs Temp 98.4 F 09/03/24 07:41 Pulse 72 09/03/24 11:44 Resp 18 09/03/24 08:00 BP 125/76 09/03/24 07:41 Pulse Ox 92 L 09/03/24 07:41 FiO2 Intake & Output 09/02/24 09/03/24 09/03/24 18:59 06:59 18:59 Intake Total 480 Balance 480 Intake: Oral 480 Other: Voiding Method Bedside Commode Bedside Commode # Voids 1 3 # Bowel Movements 1 - Exam GENERAL EXAM: Alert, 64-year-old female, up in a chair, on 5 L high flow nasal cannula, in no apparent distress. HEAD: Normocephalic. EYES: Normal reaction of pupils, equal size. NOSE: Clear with pink turbinates. THROAT: No erythema or exudates. NECK: No masses, no JVD. CHEST: No chest wall deformity. LUNGS: Equal air entry with bilateral end expiratory wheeze, diminished. CVS: S1 and S2 normal with no audible murmur, regular rhythm. ABDOMEN: No hepatosplenomegaly, normal bowel sounds, no guarding or rigidity. SPINE: No scoliosis or deformity SKIN: No rashes CENTRAL NERVOUS SYSTEM: No focal deficits, tone is normal in all 4 extremities. EXTREMITIES: There is no peripheral edema. No clubbing, no cyanosis. Peripheral pulses are intact. - Labs CBC & Chem 7: 09/03/24 03:54 09/03/24 03:54 Labs: Abnormal Lab Results - Last 24 Hours (Table) 09/02/24 09/02/24 09/03/24 Range/Units 16:33 20:00 03:54 WBC 16.70 H (4.50-10.00) X 10*3/uL RBC 3.88 L (4.10-5.20) X 10*6/uL MCV 104.4 H (80.0-97.0) FL MCHC 30.1 L (32.0-37.0) g/dL MPV 12.3 H (9.5-12.2) FL Immature Gran # 0.50 H (0.00-0.04) X 10*3/uL Neutrophils # 14.15 H (1.80-7.70) X 10*3/uL Eosinophils # 0 L (0.04-0.35) X 10*3/uL Carbon Dioxide (21.6-31.8) mmol/L BUN (9.0-27.0) mg/dL Est GFR (CKD-EPI) (>=60) BUN/Creatinine Ratio (12.00-20.00) Ratio Glucose (70-110) mg/dL POC Glucose (mg/dL) 120 H 131 H (70-110) mg/dL Calcium (8.7-10.3) mg/dL 09/03/24 09/03/24 Range/Units 03:54 06:09 WBC (4.50-10.00) X 10*3/uL RBC (4.10-5.20) X 10*6/uL MCV (80.0-97.0) FL MCHC (32.0-37.0) g/dL MPV (9.5-12.2) FL Immature Gran # (0.00-0.04) X 10*3/uL Neutrophils # (1.80-7.70) X 10*3/uL Eosinophils # (0.04-0.35) X 10*3/uL Carbon Dioxide 34.1 H (21.6-31.8) mmol/L BUN 33.3 H (9.0-27.0) mg/dL Est GFR (CKD-EPI) 50 L (>=60) BUN/Creatinine Ratio 27.75 H (12.00-20.00) Ratio Glucose 139 H (70-110) mg/dL POC Glucose (mg/dL) 124 H (70-110) mg/dL Calcium 8.5 L (8.7-10.3) mg/dL Assessment and Plan Assessment: Acute on chronic hypoxic respiratory failure secondary to acute exacerbation chronic obstructive pulmonary disease Severe stage III chronic obstructive pulmonary disease with FEV1 value of 40% of predicted Chronic hypoxemic respiratory failure on home oxygen Frequent readmissions to the hospital for COPD exacerbations most recently discharged August 06, 2024 History of gastroesophageal reflux disease Hyperlipidemia Obstructive sleep apnea Hydronephrosis status post right nephrectomy History of anxiety/depression Former heavy tobacco dependence History of compression fracture of thoracic and upper lumbar spine Plan: The patient was seen and evaluated Chest x-ray, medications and labs reviewed No acute pulmonary process Currently on 5 L high flow nasal cannula Titrate down the FiO2 as tolerated Continue DuoNeb inhalations Discontinue Pulmicort and Perforomist inhalations Initiate Symbicort Discontinue IV Solu-Medrol Initiated prednisone taper Heparin for DVT prophylaxis Increase her activity as tolerated Plan is for home with home care at discharge I have personally seen and examined the patient, performed the documentation and the assessment and plan as written. Number of minutes spent on the visit: 10 Dictation was produced using [employer] dictation software. Please excuse any grammatical, word or spelling errors.
--- NOTE | 2024-09-03 14:03 | PN ---
PROGRESS NOTE DATE OF SERVICE: 09/03/2024 SUBJECTIVE: This is a 64-year-old woman was admitted with COPD acute exacerbation, is being closely monitored at this time. The patient is still on higher level of oxygen. Chest x-ray showed some improvement. PHYSICAL EXAMINATION: VITAL SIGNS: Pulse is 78, blood pressure 120/70, and respirations 18. CHEST: Few scattered rhonchi and crackles. ABDOMEN: Soft. NERVOUS SYSTEM: Nonfocal. LABORATORY DATA: Reviewed. ASSESSMENT: 1. Chronic obstructive pulmonary disease acute exacerbation with [id number] hypoxic respiratory failure. 2. Gastroesophageal reflux disease. 3. Congestive heart failure, ruled out. 4. Hyperlipidemia. 5. History of sleep apnea. RECOMMENDATIONS: Recommend to continue current management and continue symptomatic treatment. Continue with the bronchodilators. Continue with steroids. We will increase ambulation and once the oxygen requirement is lower, the patient close to 4 L, which is her home dose, the patient will be discharged home once cleared by Pulmonary. MMODL / DORAN: [id number] /
[2024-09-03 17:21] LABS: Glucose,Whole Blood 131 mg/dL (70-110)
[2024-09-03] MEDS ORDERED: SYMBICORT 160-4.5 MCG INHALER INHALATION SCH (20:00)
[2024-09-03 20:47] LABS: Glucose,Whole Blood 75 mg/dL (70-110)
[2024-09-03] MEDS: FORMOTEROL FUMARATE 20 MCG/2 ML NEBU INHALATION SCH (20:59)
[2024-09-03] MEDS: BUDESONIDE 1 MG/2 ML NEBU INHALATION SCH (20:59)
[2024-09-04 06:07] LABS: Glucose,Whole Blood 85 mg/dL (70-110)
[2024-09-04 08:21] LABS: BUN/Creat Ratio 32.18 Ratio (12.00-20.00); Blood Urea Nitrogen 35.4 mg/dL (9.0-27.0); Calcium 8.4 mg/dL (8.7-10.3); Carbon Dioxide 33.7 mmol/L (21.6-31.8); Chloride 104 mmol/L (96-109); Glucose 83 mg/dL (70-110); Potassium 4.4 mmol/L (3.5-5.5); Sodium 144 mmol/L (135-145)
[2024-09-04] MEDS: predniSONE 20 MG TAB PO SCH (08:53)
[2024-09-04 09:30] LABS: Basophils # (A) 0.03 X 10*3/uL (0.00-0.10); Basophils % (A) 0.2 %; Eosinophils # (A) 0.01 X 10*3/uL (0.04-0.35); Eosinophils % (A) 0.1 %; HCT 40.9 % (37.2-46.3); HGB 12.1 g/dL (12.0-15.0); Lymphocytes # (A) 2.51 X 10*3/uL (0.90-5.00); Lymphocytes % (A) 17.3 %; MCH 31.1 pg (27.0-32.0); MCHC 29.6 g/dL (32.0-37.0); MCV 105.1 FL (80.0-97.0); Macrocytosis (M) 2+ (None Seen); Mean Platelet Volume 12.3 FL (9.5-12.2); Monocytes # (A) 1.71 X 10*3/uL (0.20-1.00); Monocytes % (A) 11.8 %; NRBC Per 100 WBC 0 X 10*3/uL (0.00-0.01); Neutrophils # (A) 9.58 X 10*3/uL (1.80-7.70); Neutrophils % (A) 65.8 %; Platelet Count 195 X 10*3/uL (140-440); RBC 3.89 X 10*6/uL (4.10-5.20); RDW 13.5 % (11.5-14.5); WBC 14.54 X 10*3/uL (4.50-10.00)
[2024-09-04 12:05] LABS: Glucose,Whole Blood 94 mg/dL (70-110)
--- NOTE | 2024-09-04 12:33 | PN ---
PROGRESS NOTE DATE OF SERVICE: 09/04/2024 SUBJECTIVE: This is a 64-year-old woman was admitted with COPD acute exacerbation, also on high requirement of oxygen. The most recent chest x-ray, which I reviewed recently showed no pneumonia. PHYSICAL EXAMINATION: VITAL SIGNS: Pulse is 86, blood pressure 130/85, and respirations 17. CHEST: Bilateral scattered rhonchi and crackles with expiratory wheezing. ABDOMEN: Soft. LABORATORY DATA: Reviewed. ASSESSMENT: 1. Chronic obstructive pulmonary disease acute exacerbation with [id number] hypoxic respiratory failure with acute tracheobronchitis with no evidence of pneumonia. 2. Gastroesophageal reflux disease. 3. Congestive heart failure, ruled out. 4. Hyperlipidemia. 5. History of sleep apnea. 6. Multiple complex medical issues. RECOMMENDATIONS AND DISCUSSION: Recommend to continue current management and continue symptomatic treatment. Optimize bronchodilator treatment. We will continue to monitor closely. Follow with Dr. Soni. Guarded prognosis. Further recommendations to follow. MMODL / IJN: [id number] /
--- NOTE | 2024-09-04 14:38 | P.PN ---
Subjective Progress Note Date: 09/04/24 This is a 64-year-old female patient with a known history of severe stage III COPD with an FEV1 value 40% of predicted, chronic hypoxic respiratory failure on home oxygen, gastroesophageal reflux disease, hyperlipidemia, sleep apnea syndrome, hydro nephroma status post right nephrectomy, anxiety/depression, former tobacco dependence, compression fraction of the thoracic and lumbar spine. She has had frequent admissions for COPD exacerbations. Just discharged again home on 08/06/2024. She states she was not able to come to our office for a follow-up visit due to not having a ride. She presented here again early this morning with increasing shortness of breath, cough and congestion. Chest x-ray reveals no acute pulmonary process. White count 8.8. Hemoglobin 13.2. Platelets 198. Sodium 141. Potassium 4.2. Bicarb 34. BUN 22. Creatinine 0.97. Glucose 98. She is seen today in consultation in the emergency department. Currently sitting up on a stretcher. Awake and alert in no acute distress. Maintaining O2 saturations on 6 L high flow nasal cannula. She is afebrile. Somewhat tachycardic. Blood pressure stable. The patient is seen today September 01, 2024 in follow-up on the regular medical floor. She is currently sitting up in bed. Awake and alert in no acute distress. Breathing a bit better today compared to yesterday. Not quite back to her baseline. She is requiring 6 L high flow nasal cannula to maintain O2 saturations in the 90s. She has been afebrile. Hemodynamically stable. Glucose 95. She remains on DuoNeb inhalations, Pulmicort and performance inhalations, Solu-Medrol. Heparin for DVT prophylaxis. Continued on her home medications. The patient is seen today September 02, 2024 in follow-up on the regular medical floor. She is awake and alert in no acute distress. Still having episodes of hypoxemia and shortness of breath. She is currently on 6 L high flow nasal cannula to maintain O2 saturation in the 90s. She is afebrile. Hemodynamically stable. Glucose 106. She remains on DuoNeb inhalations, Pulmicort and Perforomist inhalations, IV Solu-Medrol. Heparin for DVT prophylaxis. The patient is seen today September 03, 2024 in follow-up on the regular medical floor. She is currently up in a chair at the bedside. Awake and alert in no acute distress. Maintaining good O2 saturations in the 90s on 5 L/min per nasal cannula. She is afebrile. Hemodynamically stable. Chest x-ray again shows no acute cardiopulmonary process. White count 16.7. Hemoglobin 12.2. Platelets 204. Sodium 144. Potassium 4.2. Bicarb 34. BUN 33. Creatinine 1.2. Glucose 139. She remains on DuoNeb inhalations, Pulmicort and performance inhalations, IV Solu-Medrol. Heparin for DVT prophylaxis. The patient is seen today September 04, 2024 in follow-up on the regular medical floor. She is currently resting in bed. Awake and alert in no acute distress. Denies any worsening shortness of breath, cough or congestion. Maintaining O2 saturation in the 90s on 5 L high flow nasal cannula. White count 14.5. Hemoglobin 12.1. Platelets 195. Sodium 144. Potassium 4.4. Bicarb 34. BUN 35. Creatinine 1.1. Glucose 83. She remains on DuoNeb inhalations, Pulmicort and Perforomist inhalations, prednisone taper. Heparin for DVT prophylaxis. Objective - Vital Signs Vital signs: Vital Signs Temp 98.1 F 09/04/24 07:03 Pulse 107 H 09/04/24 13:09 Resp 17 09/04/24 07:50 BP 139/85 09/04/24 07:03 Pulse Ox 90 L 09/04/24 09:54 FiO2 Intake & Output 09/03/24 09/04/24 09/04/24 18:59 06:59 18:59 Intake Total 240 Balance 240 Intake: Oral 240 Other: Voiding Method Bedside Commode Bedside Commode Bedside Commode # Voids 3 2 2 # Bowel Movements 1 1 1 - Exam GENERAL EXAM: Alert, 64-year-old female, resting in bed, on 5 L nasal cannula, in no apparent distress. HEAD: Normocephalic. EYES: Normal reaction of pupils, equal size. NOSE: Clear with pink turbinates. THROAT: No erythema or exudates. NECK: No masses, no JVD. CHEST: No chest wall deformity. LUNGS: Equal air entry with bilateral end expiratory wheeze, diminished. CVS: S1 and S2 normal with no audible murmur, regular rhythm. ABDOMEN: No hepatosplenomegaly, normal bowel sounds, no guarding or rigidity. SPINE: No scoliosis or deformity SKIN: No rashes CENTRAL NERVOUS SYSTEM: No focal deficits, tone is normal in all 4 extremities. EXTREMITIES: There is no peripheral edema. No clubbing, no cyanosis. Peripheral pulses are intact. - Labs CBC & Chem 7: 09/04/24 03:43 09/04/24 03:43 Labs: Abnormal Lab Results - Last 24 Hours (Table) 09/03/24 09/04/24 09/04/24 Range/Units 17:20 03:43 03:43 WBC 14.54 H (4.50-10.00) X 10*3/uL RBC 3.89 L (4.10-5.20) X 10*6/uL MCV 105.1 H (80.0-97.0) FL MCHC 29.6 L (32.0-37.0) g/dL MPV 12.3 H (9.5-12.2) FL Immature Gran # 0.70 H (0.00-0.04) X 10*3/uL Neutrophils # 9.58 H (1.80-7.70) X 10*3/uL Monocytes # 1.71 H (0.20-1.00) X 10*3/uL Eosinophils # 0.01 L (0.04-0.35) X 10*3/uL Macrocytosis (manual) 2+ A (None Seen) Carbon Dioxide 33.7 H (21.6-31.8) mmol/L BUN 35.4 H (9.0-27.0) mg/dL Est GFR (CKD-EPI) 56 L (>=60) BUN/Creatinine Ratio 32.18 H (12.00-20.00) Ratio POC Glucose (mg/dL) 131 H (70-110) mg/dL Calcium 8.4 L (8.7-10.3) mg/dL Assessment and Plan Assessment: Acute on chronic hypoxic respiratory failure secondary to acute exacerbation chronic obstructive pulmonary disease Severe stage III chronic obstructive pulmonary disease with FEV1 value of 40% of predicted Chronic hypoxemic respiratory failure on home oxygen Frequent readmissions to the hospital for COPD exacerbations most recently discharged August 06, 2024 History of gastroesophageal reflux disease Hyperlipidemia Obstructive sleep apnea Hydronephrosis status post right nephrectomy History of anxiety/depression Former heavy tobacco dependence History of compression fracture of thoracic and upper lumbar spine Plan: The patient was seen and evaluated Medications and labs reviewed Currently on 5 L nasal cannula Titrate down the FiO2 as tolerated Continue DuoNeb inhalations Continue Pulmicort and Perforomist inhalations Continue prednisone taper Heparin for DVT prophylaxis Increase her activity as tolerated Reluctant to be discharged Plan is for home with home care at discharge I have personally seen and examined the patient, performed the documentation and the assessment and plan as written. Number of minutes spent on the visit: 10 Dictation was produced using [employer] dictation software. Please excuse any grammatical, word or spelling errors.
--- NOTE | 2024-09-04 15:59 | XR ---
EXAMINATION TYPE: XR chest 1V portable DATE OF EXAM: 09/04/2024 3:47 PM COMPARISON: Chest radiographs from 09/02/2024. CLINICAL INDICATION: Female, 64 years old with history of shortness of breath; TECHNIQUE: XR chest 1V portable Frontal view of the chest. FINDINGS: Lungs/Pleura: There is no evidence of pleural effusion, focal consolidation, or pneumothorax. Pulmonary vascularity: Pulmonary vascular congestion. Heart/mediastinum: Cardiomediastinal silhouette is prominent in size. Atherosclerotic calcifications are seen in the aorta. Musculoskeletal: No acute osseous pathology. IMPRESSION: Mild pulmonary edema suggested [facility] Ravinder Pollock, , 09/04/2024 3:56 PM
[2024-09-04 16:38] LABS: Glucose,Whole Blood 150 mg/dL (70-110)
[2024-09-04] MEDS: ALPRAZolam 0.5 MG TAB PO PRN (20:18)
[2024-09-04 20:48] LABS: Glucose,Whole Blood 159 mg/dL (70-110)
[2024-09-05 06:10] LABS: Glucose,Whole Blood 78 mg/dL (70-110)
[2024-09-05 08:37] LABS: Calcium 8.2 mg/dL (8.7-10.3); Carbon Dioxide 33.5 mmol/L (21.6-31.8); Chloride 104 mmol/L (96-109); Glucose 68 mg/dL (70-110); Potassium 4.3 mmol/L (3.5-5.5); Sodium 144 mmol/L (135-145)
[2024-09-05 10:51] LABS: Basophils # (M) 0 X 10*3/uL (0.00-0.10); Eosinophils # (M) 0 X 10*3/uL (0.04-0.35); HGB 11.6 g/dL (12.0-15.0); Lymphocytes # (M) 1.32 X 10*3/uL (0.90-5.00); MCH 30.6 pg (27.0-32.0); MCHC 29.7 g/dL (32.0-37.0); MCV 102.9 FL (80.0-97.0); Macrocytosis (M) 2+ (None Seen); Mean Platelet Volume 12.9 FL (9.5-12.2); Metamyelocytes % 3 % (0-0); Monocytes # (M) 1.59 X 10*3/uL (0.20-1.00); Myelocytes % 9 % (0-0); NRBC Per 100 WBC 0.06 X 10*3/uL (0.00-0.01); Neutrophils # (M) 8.61 X 10*3/uL (1.80-7.70); Neutrophils % (M) 65 %; Platelet Count 193 X 10*3/uL (140-440); Promyelocytes # (M) 0.13 k/uL (0); Promyelocytes % 1 %; RBC 3.79 X 10*6/uL (4.10-5.20); RDW 13.3 % (11.5-14.5); WBC 13.25 X 10*3/uL (4.50-10.00)
[2024-09-05 11:03] VITALS: BMI 27.4
[2024-09-05 11:48] LABS: Glucose,Whole Blood 94 mg/dL (70-110)
[2024-09-05] MEDS: FUROSEMIDE 10 MG/ML 4 ML VIAL IV STA (12:55)
--- NOTE | 2024-09-05 13:00 | PN ---
PROGRESS NOTE DATE OF SERVICE: 09/05/2024 SUBJECTIVE: This is a 64-year-old woman was admitted with COPD acute exacerbation and had very slow improvement. The most recent chest x-ray showed mild pulmonary edema, possibly. PHYSICAL EXAMINATION: VITAL SIGNS: Pulse is 80, blood pressure 132/80, and respirations 17. CHEST: A few scattered rhonchi. ABDOMEN: Soft. NERVOUS SYSTEM: Nonfocal. LABORATORY DATA: WBC 13.25, other labs reviewed. ASSESSMENT: 1. Chronic obstructive pulmonary disease exacerbation, [id number] hypoxic respiratory failure with acute tracheobronchitis with no evidence of pneumonia. 2. Gastroesophageal reflux disease. 3. Congestive heart failure, ruled out. 4. Hyperlipidemia. 5. History of sleep apnea. 6. Multiple complex medical issues. RECOMMENDATIONS AND DISCUSSION: I recommend to continue current management and continue symptomatic treatment. Otherwise I would recommend single dose of Lasix. I would also recommend BNP evaluation also and guarded prognosis. Further recommendations to follow. MMODL / IJN: [id number] /
--- NOTE | 2024-09-05 13:28 | P.PN ---
Subjective Progress Note Date: 09/05/24 This is a 64-year-old female patient with a known history of severe stage III COPD with an FEV1 value 40% of predicted, chronic hypoxic respiratory failure on home oxygen, gastroesophageal reflux disease, hyperlipidemia, sleep apnea syndrome, hydro nephroma status post right nephrectomy, anxiety/depression, former tobacco dependence, compression fraction of the thoracic and lumbar spine. She has had frequent admissions for COPD exacerbations. Just discharged again home on 08/06/2024. She states she was not able to come to our office for a follow-up visit due to not having a ride. She presented here again early this morning with increasing shortness of breath, cough and congestion. Chest x-ray reveals no acute pulmonary process. White count 8.8. Hemoglobin 13.2. Platelets 198. Sodium 141. Potassium 4.2. Bicarb 34. BUN 22. Creatinine 0.97. Glucose 98. She is seen today in consultation in the emergency department. Currently sitting up on a stretcher. Awake and alert in no acute distress. Maintaining O2 saturations on 6 L high flow nasal cannula. She is afebrile. Somewhat tachycardic. Blood pressure stable. The patient is seen today September 01, 2024 in follow-up on the regular medical floor. She is currently sitting up in bed. Awake and alert in no acute distress. Breathing a bit better today compared to yesterday. Not quite back to her baseline. She is requiring 6 L high flow nasal cannula to maintain O2 saturations in the 90s. She has been afebrile. Hemodynamically stable. Glucose 95. She remains on DuoNeb inhalations, Pulmicort and performance inhalations, Solu-Medrol. Heparin for DVT prophylaxis. Continued on her home medications. The patient is seen today September 02, 2024 in follow-up on the regular medical floor. She is awake and alert in no acute distress. Still having episodes of hypoxemia and shortness of breath. She is currently on 6 L high flow nasal cannula to maintain O2 saturation in the 90s. She is afebrile. Hemodynamically stable. Glucose 106. She remains on DuoNeb inhalations, Pulmicort and Perforomist inhalations, IV Solu-Medrol. Heparin for DVT prophylaxis. The patient is seen today September 03, 2024 in follow-up on the regular medical floor. She is currently up in a chair at the bedside. Awake and alert in no acute distress. Maintaining good O2 saturations in the 90s on 5 L/min per nasal cannula. She is afebrile. Hemodynamically stable. Chest x-ray again shows no acute cardiopulmonary process. White count 16.7. Hemoglobin 12.2. Platelets 204. Sodium 144. Potassium 4.2. Bicarb 34. BUN 33. Creatinine 1.2. Glucose 139. She remains on DuoNeb inhalations, Pulmicort and performance inhalations, IV Solu-Medrol. Heparin for DVT prophylaxis. The patient is seen today September 04, 2024 in follow-up on the regular medical floor. She is currently resting in bed. Awake and alert in no acute distress. Denies any worsening shortness of breath, cough or congestion. Maintaining O2 saturation in the 90s on 5 L high flow nasal cannula. White count 14.5. Hemoglobin 12.1. Platelets 195. Sodium 144. Potassium 4.4. Bicarb 34. BUN 35. Creatinine 1.1. Glucose 83. She remains on DuoNeb inhalations, Pulmicort and Perforomist inhalations, prednisone taper. Heparin for DVT prophylaxis. The patient is seen today September 05, 2024 in follow-up on the regular medical floor. She is awake and alert in no acute distress. Maintaining O2 saturations in the 90s on 4 L/min per nasal cannula. She denies any worsening shortness of breath, cough or congestion. White count 13.2. Hemoglobin 11.6. Platelets 193. Sodium 144. Potassium 4.3. Bicarb 34. BUN 29. Creatinine 1.0. Glucose 68. She is continued on DuoNeb inhalations, Pulmicort and Perforomist inhalations, prednisone taper. Heparin for DVT prophylaxis. Objective - Vital Signs Vital signs: Vital Signs Temp 99.1 F 09/05/24 12:20 Pulse 84 09/05/24 12:40 Resp 18 09/05/24 12:20 BP 146/82 09/05/24 12:20 Pulse Ox 89 L 09/05/24 12:20 FiO2 Intake & Output 09/04/24 09/05/24 09/05/24 18:59 06:59 18:59 Weight 68.039 kg Other: Voiding Method Bedside Commode Bedside Commode # Voids 1 1 1 # Bowel Movements 1 1 - Exam GENERAL EXAM: Alert, oriented 64-year-old female, resting in bed, on 4 L nasal cannula, in no apparent distress. HEAD: Normocephalic. EYES: Normal reaction of pupils, equal size. NOSE: Clear with pink turbinates. THROAT: No erythema or exudates. NECK: No masses, no JVD. CHEST: No chest wall deformity. LUNGS: Equal air entry with bilateral end expiratory wheeze, diminished. CVS: S1 and S2 normal with no audible murmur, regular rhythm. ABDOMEN: No hepatosplenomegaly, normal bowel sounds, no guarding or rigidity. SPINE: No scoliosis or deformity SKIN: No rashes CENTRAL NERVOUS SYSTEM: No focal deficits, tone is normal in all 4 extremities. EXTREMITIES: There is no peripheral edema. No clubbing, no cyanosis. Peripheral pulses are intact. - Labs CBC & Chem 7: 09/05/24 03:13 09/05/24 03:13 Labs: Abnormal Lab Results - Last 24 Hours (Table) 09/04/24 09/04/24 09/05/24 Range/Units 16:35 20:47 03:13 WBC 13.25 H (4.50-10.00) X 10*3/uL RBC 3.79 L (4.10-5.20) X 10*6/uL Hgb 11.6 L (12.0-15.0) g/dL MCV 102.9 H (80.0-97.0) FL MCHC 29.7 L (32.0-37.0) g/dL MPV 12.9 H (9.5-12.2) FL Neutrophils # (Manual) 8.61 H (1.80-7.70) X 10*3/uL Monocytes # (Manual) 1.59 H (0.20-1.00) X 10*3/uL Eosinophils # (Manual) 0 L (0.04-0.35) X 10*3/uL NRBC/100 WBC Diff 0.06 H (0.00-0.01) X 10*3/uL Macrocytosis (manual) 2+ A (None Seen) Carbon Dioxide (21.6-31.8) mmol/L BUN (9.0-27.0) mg/dL BUN/Creatinine Ratio (12.00-20.00) Ratio Glucose (70-110) mg/dL POC Glucose (mg/dL) 150 H 159 H (70-110) mg/dL Calcium (8.7-10.3) mg/dL 09/05/24 Range/Units 03:13 WBC (4.50-10.00) X 10*3/uL RBC (4.10-5.20) X 10*6/uL Hgb (12.0-15.0) g/dL MCV (80.0-97.0) FL MCHC (32.0-37.0) g/dL MPV (9.5-12.2) FL Neutrophils # (Manual) (1.80-7.70) X 10*3/uL Monocytes # (Manual) (0.20-1.00) X 10*3/uL Eosinophils # (Manual) (0.04-0.35) X 10*3/uL NRBC/100 WBC Diff (0.00-0.01) X 10*3/uL Macrocytosis (manual) (None Seen) Carbon Dioxide 33.5 H (21.6-31.8) mmol/L BUN 29.0 H (9.0-27.0) mg/dL BUN/Creatinine Ratio 29.00 H (12.00-20.00) Ratio Glucose 68 L (70-110) mg/dL POC Glucose (mg/dL) (70-110) mg/dL Calcium 8.2 L (8.7-10.3) mg/dL Assessment and Plan Assessment: Acute on chronic hypoxic respiratory failure secondary to acute exacerbation chronic obstructive pulmonary disease Severe stage III chronic obstructive pulmonary disease with FEV1 value of 40% of predicted Chronic hypoxemic respiratory failure on home oxygen Frequent readmissions to the hospital for COPD exacerbations most recently discharged August 06, 2024 History of gastroesophageal reflux disease Hyperlipidemia Obstructive sleep apnea Hydronephrosis status post right nephrectomy History of anxiety/depression Former heavy tobacco dependence History of compression fracture of thoracic and upper lumbar spine Plan: The patient was seen and evaluated Medications and labs reviewed Currently on 4 L nasal cannula Titrate down the FiO2 as tolerated Continue DuoNeb inhalations Continue Pulmicort and Perforomist inhalations Continue prednisone taper Heparin for DVT prophylaxis Increase her activity as tolerated The patient is reluctant to be discharged Plan is for home with home care I have personally seen and examined the patient, performed the documentation and the assessment and plan as written. Number of minutes spent on the visit: 10 Dictation was produced using [employer] dictation software. Please excuse any grammatical, word or spelling errors.
[2024-09-05] MEDS: ALPRAZolam 0.5 MG TAB PO PRN (14:07)
[2024-09-05 16:21] LABS: Glucose,Whole Blood 150 mg/dL (70-110)
[2024-09-05 20:23] LABS: Glucose,Whole Blood 120 mg/dL (70-110)
[2024-09-06 06:13] LABS: Glucose,Whole Blood 83 mg/dL (70-110)
[2024-09-06 08:44] LABS: BUN/Creat Ratio 28.64 Ratio (12.00-20.00); Blood Urea Nitrogen 31.5 mg/dL (9.0-27.0); Calcium 8.9 mg/dL (8.7-10.3); Carbon Dioxide 36.3 mmol/L (21.6-31.8); Chloride 98 mmol/L (96-109); Glucose 72 mg/dL (70-110); Potassium 3.9 mmol/L (3.5-5.5); Sodium 146 mmol/L (135-145)
[2024-09-06 10:50] LABS: HCT 45.6 % (37.2-46.3); HGB 13.8 g/dL (12.0-15.0); MCH 31.1 pg (27.0-32.0); MCHC 30.3 g/dL (32.0-37.0); MCV 102.7 FL (80.0-97.0); Mean Platelet Volume 12.6 FL (9.5-12.2); NRBC Per 100 WBC 0.04 X 10*3/uL (0.00-0.01); Platelet Count 210 X 10*3/uL (140-440); RBC 4.44 X 10*6/uL (4.10-5.20); RDW 13.4 % (11.5-14.5); WBC 16.64 X 10*3/uL (4.50-10.00)
[2024-09-06 11:47] LABS: Glucose,Whole Blood 109 mg/dL (70-110)
[2024-09-06 13:01] LABS: Basophils # (M) 0 X 10*3/uL (0.00-0.10); Eosinophils # (M) 0 X 10*3/uL (0.04-0.35); Lymphocytes # (M) 2.66 X 10*3/uL (0.90-5.00); Metamyelocytes % 4 % (0-0); Monocytes # (M) 1.16 X 10*3/uL (0.20-1.00); Myelocytes % 8 % (0-0); Neutrophils # (M) 10.65 X 10*3/uL (1.80-7.70); Neutrophils % (M) 64 %; Promyelocytes # (M) 0.17 k/uL (0); Promyelocytes % 1 %
--- NOTE | 2024-09-06 14:06 | P.PN ---
Subjective Progress Note Date: 09/06/24 This is a 64-year-old female patient with a known history of severe stage III COPD with an FEV1 value 40% of predicted, chronic hypoxic respiratory failure on home oxygen, gastroesophageal reflux disease, hyperlipidemia, sleep apnea syndrome, hydro nephroma status post right nephrectomy, anxiety/depression, former tobacco dependence, compression fraction of the thoracic and lumbar spine. She has had frequent admissions for COPD exacerbations. Just discharged again home on 08/06/2024. She states she was not able to come to our office for a follow-up visit due to not having a ride. She presented here again early this morning with increasing shortness of breath, cough and congestion. Chest x-ray reveals no acute pulmonary process. White count 8.8. Hemoglobin 13.2. Platelets 198. Sodium 141. Potassium 4.2. Bicarb 34. BUN 22. Creatinine 0.97. Glucose 98. She is seen today in consultation in the emergency department. Currently sitting up on a stretcher. Awake and alert in no acute distress. Maintaining O2 saturations on 6 L high flow nasal cannula. She is afebrile. Somewhat tachycardic. Blood pressure stable. The patient is seen today September 01, 2024 in follow-up on the regular medical floor. She is currently sitting up in bed. Awake and alert in no acute distress. Breathing a bit better today compared to yesterday. Not quite back to her baseline. She is requiring 6 L high flow nasal cannula to maintain O2 saturations in the 90s. She has been afebrile. Hemodynamically stable. Glucose 95. She remains on DuoNeb inhalations, Pulmicort and performance inhalations, Solu-Medrol. Heparin for DVT prophylaxis. Continued on her home medications. The patient is seen today September 02, 2024 in follow-up on the regular medical floor. She is awake and alert in no acute distress. Still having episodes of hypoxemia and shortness of breath. She is currently on 6 L high flow nasal cannula to maintain O2 saturation in the 90s. She is afebrile. Hemodynamically stable. Glucose 106. She remains on DuoNeb inhalations, Pulmicort and Perforomist inhalations, IV Solu-Medrol. Heparin for DVT prophylaxis. The patient is seen today September 03, 2024 in follow-up on the regular medical floor. She is currently up in a chair at the bedside. Awake and alert in no acute distress. Maintaining good O2 saturations in the 90s on 5 L/min per nasal cannula. She is afebrile. Hemodynamically stable. Chest x-ray again shows no acute cardiopulmonary process. White count 16.7. Hemoglobin 12.2. Platelets 204. Sodium 144. Potassium 4.2. Bicarb 34. BUN 33. Creatinine 1.2. Glucose 139. She remains on DuoNeb inhalations, Pulmicort and performance inhalations, IV Solu-Medrol. Heparin for DVT prophylaxis. The patient is seen today September 04, 2024 in follow-up on the regular medical floor. She is currently resting in bed. Awake and alert in no acute distress. Denies any worsening shortness of breath, cough or congestion. Maintaining O2 saturation in the 90s on 5 L high flow nasal cannula. White count 14.5. Hemoglobin 12.1. Platelets 195. Sodium 144. Potassium 4.4. Bicarb 34. BUN 35. Creatinine 1.1. Glucose 83. She remains on DuoNeb inhalations, Pulmicort and Perforomist inhalations, prednisone taper. Heparin for DVT prophylaxis. The patient is seen today September 05, 2024 in follow-up on the regular medical floor. She is awake and alert in no acute distress. Maintaining O2 saturations in the 90s on 4 L/min per nasal cannula. She denies any worsening shortness of breath, cough or congestion. White count 13.2. Hemoglobin 11.6. Platelets 193. Sodium 144. Potassium 4.3. Bicarb 34. BUN 29. Creatinine 1.0. Glucose 68. She is continued on DuoNeb inhalations, Pulmicort and Perforomist inhalations, prednisone taper. Heparin for DVT prophylaxis. The patient is seen today September 06, 2024 in follow-up on the regular medical floor. She is sitting up in bed. Awake and alert in no acute distress. Maintaining good O2 saturations in the 90s on 4 to 5 L/min per nasal cannula. No worsening shortness of breath, cough or congestion. White count 16.6. Hemoglobin 13.8. Platelets 210. Sodium 146. Potassium 3.9. Bicarb 36. BUN 3 2. Creatinine 1.1. Glucose 72. She remains on DuoNeb inhalations, Pulmicort and Perforomist inhalations, prednisone taper. Heparin for DVT prophylaxis. Objective - Vital Signs Vital signs: Vital Signs Temp 97.8 F 09/06/24 07:02 Pulse 92 09/06/24 12:20 Resp 17 09/06/24 07:02 BP 131/86 09/06/24 07:02 Pulse Ox 91 L 09/06/24 09:06 FiO2 Intake & Output 09/05/24 09/06/24 09/06/24 18:59 06:59 18:59 Intake Total 200 240 Balance 200 240 Weight 68.039 kg Intake: Oral 200 240 Other: # Voids 8 3 # Bowel Movements 2 1 - Exam GENERAL EXAM: Alert, 64-year-old female, appears older than stated age, sitting up in bed, on 4-5 L nasal cannula, in no apparent distress. HEAD: Normocephalic. EYES: Normal reaction of pupils, equal size. NOSE: Clear with pink turbinates. THROAT: No erythema or exudates. NECK: No masses, no JVD. CHEST: No chest wall deformity. LUNGS: Equal air entry with bilateral end expiratory wheeze, diminished. CVS: S1 and S2 normal with no audible murmur, regular rhythm. ABDOMEN: No hepatosplenomegaly, normal bowel sounds, no guarding or rigidity. SPINE: No scoliosis or deformity SKIN: No rashes CENTRAL NERVOUS SYSTEM: No focal deficits, tone is normal in all 4 extremities. EXTREMITIES: There is no peripheral edema. No clubbing, no cyanosis. Peripheral pulses are intact. - Labs CBC & Chem 7: 09/06/24 03:24 09/06/24 03:24 Labs: Abnormal Lab Results - Last 24 Hours (Table) 09/05/24 09/05/24 09/06/24 Range/Units 16:20 20:22 03:24 WBC 16.64 H (4.50-10.00) X 10*3/uL MCV 102.7 H (80.0-97.0) FL MCHC 30.3 L (32.0-37.0) g/dL MPV 12.6 H (9.5-12.2) FL Neutrophils # (Manual) 10.65 H (1.80-7.70) X 10*3/uL Monocytes # (Manual) 1.16 H (0.20-1.00) X 10*3/uL Eosinophils # (Manual) 0 L (0.04-0.35) X 10*3/uL NRBC/100 WBC Diff 0.04 H (0.00-0.01) X 10*3/uL Sodium (135-145) mmol/L Carbon Dioxide (21.6-31.8) mmol/L BUN (9.0-27.0) mg/dL Est GFR (CKD-EPI) (>=60) BUN/Creatinine Ratio (12.00-20.00) Ratio POC Glucose (mg/dL) 150 H 120 H (70-110) mg/dL 09/06/24 Range/Units 03:24 WBC (4.50-10.00) X 10*3/uL MCV (80.0-97.0) FL MCHC (32.0-37.0) g/dL MPV (9.5-12.2) FL Neutrophils # (Manual) (1.80-7.70) X 10*3/uL Monocytes # (Manual) (0.20-1.00) X 10*3/uL Eosinophils # (Manual) (0.04-0.35) X 10*3/uL NRBC/100 WBC Diff (0.00-0.01) X 10*3/uL Sodium 146 H (135-145) mmol/L Carbon Dioxide 36.3 H (21.6-31.8) mmol/L BUN 31.5 H (9.0-27.0) mg/dL Est GFR (CKD-EPI) 56 L (>=60) BUN/Creatinine Ratio 28.64 H (12.00-20.00) Ratio POC Glucose (mg/dL) (70-110) mg/dL Assessment and Plan Assessment: Acute on chronic hypoxic respiratory failure secondary to acute exacerbation chronic obstructive pulmonary disease Severe stage III chronic obstructive pulmonary disease with FEV1 value of 40% of predicted Chronic hypoxemic respiratory failure on home oxygen Frequent readmissions to the hospital for COPD exacerbations most recently discharged August 06, 2024 History of gastroesophageal reflux disease Hyperlipidemia Obstructive sleep apnea Hydronephrosis status post right nephrectomy History of anxiety/depression Former heavy tobacco dependence History of compression fracture of thoracic and upper lumbar spine Plan: The patient was seen and evaluated Medications and labs reviewed Currently on 4-5 L nasal cannula Titrate down the FiO2 as tolerated Continue DuoNeb inhalations Continue Pulmicort and Perforomist inhalations Continue prednisone taper Heparin for DVT prophylaxis Increase her activity as tolerated The patient is reluctant to be discharged Cleared for discharge Plan is for home with home care I have personally seen and examined the patient, performed the documentation and the assessment and plan as written. Number of minutes spent on the visit: 10 Dictation was produced using [employer] dictation software. Please excuse any grammatical, word or spelling errors.
[2024-09-06 16:53] LABS: Glucose,Whole Blood 165 mg/dL (70-110)
[2024-09-06 19:54] LABS: Glucose,Whole Blood 110 mg/dL (70-110)
[2024-09-07 06:22] LABS: Glucose,Whole Blood 99 mg/dL (70-110)
--- NOTE | 2024-09-07 09:54 | P.PN ---
Subjective Progress Note Date: 09/06/24 This is a pleasant 64-year-old female who was recently admitted with increased shortness of breath with COPD exacerbation. Patient has multiple hospitalizations due to significant COPD with acute on chronic hypoxic respiratory failure. Patient chronically wears 4 L outpatient. Patient follows with pulmonary outpatient and is currently maintained on DuoNebs [id number] along with inhalers and has been transitioned to oral prednisone. Patient continues to report significant shortness of breath and oxygen desaturating into the 70s and 80s overnight requiring increasing oxygen in a.m. Patient reports she feels extremely short of breath with minimal exertion. Patient has been attempting to get up and walk more frequently. Patient denies any nausea or vomiting and has been tolerating diet. Patient reports is having bowel movements with no reports of constipation. Review of systems: Constitutional: No reports of fatigue, fever, or chills Cardiovascular: No reports of chest pain or palpitations Respiratory: reports of continued shortness of breath with minimal exertion, continued occasional cough GI: No reports of nausea, no reports of vomiting, reports having bowel movements : No reports of dysuria or retention Neurovascular: reports of generalized weakness due to her significant shortness of breath All medications have been reviewed Elderly appearing, chronically ill-appearing PHYSICAL EXAMINATION: GENERAL: The patient is alert and oriented x4, Well developed, well nourished. HEENT: Pupils are round and equally reacting to light. EOMI. no scleral icterus. No conjunctival pallor. Normocephalic, atraumatic. No pharyngeal erythema. No thyromegaly. CARDIOVASCULAR: S1 and S2 muffled PULMONARY: diminished breath sounds bilaterally with faint expiratory with no wheezing. Continue course scattered rhonchi noted. ABDOMEN: soft. Nontender on exam. obese. non-distended, normoactive bowel sounds. No palpable organomegaly. MUSCULOSKELETAL: No joint swelling or deformity. EXTREMITIES: No cyanosis, clubbing, or pedal edema. NEUROLOGICAL: Gross neurological examination did not reveal any focal deficits. Diffuse weakness SKIN: No rashes. Assessment: Chronic obstructive acute exacerbation, acute on chronic hypoxic respiratory failure with acute tracheobronchitis with no evidence of pneumonia Acute on chronic hypoxic respiratory failure, chronically wears 4 L outpatient Gastroesophageal reflux disease Congestive heart failure ruled out Hyperlipidemia History of sleep apnea History of severe anxiety History of kidney cancer with right nephrectomy History of IBS GI prophylaxis DVT prophylaxis Full code Plan: Recommend to continue with current medications and management with pulmonary following. Patient is maintained on [id number] DuoNeb treatments along with 5 L this morning as patient was having increasing shortness of breath. Wean FiO2 as tolerated as patient wears 4 to 4-1/2 L at home. Pulmonary following and has transition to oral prednisone recommending outpatient follow-up as patient is most likely at her baseline Continue with increasing activity as tolerated adding the patient to sit up in the chair more often and get up and walk around Patient continues to report significant shortness of breath with minimal exer tion and is desatting quickly taking longer to recover and does not feel ready or safe for discharge. Again discussed her overall prognosis and will monitor overnight to discuss possible discharge planning in the next 24 hours The impression and plan of care has been dictated by Peri Mg, nurse practitioner as directed. Dr. Monico MD I have performed a history and examination and MDM of this patient, discussed the same with the dictator, and agree with the dictator's assessment and plan as written ,documented as a scribe. Based on total visit time, I have performed more than 50% of the visit. Any additional findings or plans will be noted. Objective - Vital Signs Vital signs: Vital Signs Temp 97.8 F 09/06/24 07:02 Pulse 88 09/06/24 09:30 Resp 17 09/06/24 07:02 BP 131/86 09/06/24 07:02 Pulse Ox 91 L 09/06/24 09:06 FiO2 Intake & Output 09/05/24 09/06/24 09/06/24 18:59 06:59 18:59 Intake Total 200 240 Balance 200 240 Weight 68.039 kg Intake: Oral 200 240 Other: # Voids 8 3 # Bowel Movements 2 - Labs CBC & Chem 7: 09/06/24 03:24 09/06/24 03:24 Labs: Abnormal Lab Results - Last 24 Hours (Table) 09/05/24 09/05/24 09/05/24 Range/Units 03:13 16:20 20:22 WBC 13.25 H (4.50-10.00) X 10*3/uL RBC 3.79 L (4.10-5.20) X 10*6/uL Hgb 11.6 L (12.0-15.0) g/dL MCV 102.9 H (80.0-97.0) FL MCHC 29.7 L (32.0-37.0) g/dL MPV 12.9 H (9.5-12.2) FL Neutrophils # (Manual) 8.61 H (1.80-7.70) X 10*3/uL Monocytes # (Manual) 1.59 H (0.20-1.00) X 10*3/uL Eosinophils # (Manual) 0 L (0.04-0.35) X 10*3/uL NRBC/100 WBC Diff 0.06 H (0.00-0.01) X 10*3/uL Macrocytosis (manual) 2+ A (None Seen) Sodium (135-145) mmol/L Carbon Dioxide (21.6-31.8) mmol/L BUN (9.0-27.0) mg/dL Est GFR (CKD-EPI) (>=60) BUN/Creatinine Ratio (12.00-20.00) Ratio POC Glucose (mg/dL) 150 H 120 H (70-110) mg/dL 09/06/24 Range/Units 03:24 WBC (4.50-10.00) X 10*3/uL RBC (4.10-5.20) X 10*6/uL Hgb (12.0-15.0) g/dL MCV (80.0-97.0) FL MCHC (32.0-37.0) g/dL MPV (9.5-12.2) FL Neutrophils # (Manual) (1.80-7.70) X 10*3/uL Monocytes # (Manual) (0.20-1.00) X 10*3/uL Eosinophils # (Manual) (0.04-0.35) X 10*3/uL NRBC/100 WBC Diff (0.00-0.01) X 10*3/uL Macrocytosis (manual) (None Seen) Sodium 146 H (135-145) mmol/L Carbon Dioxide 36.3 H (21.6-31.8) mmol/L BUN 31.5 H (9.0-27.0) mg/dL Est GFR (CKD-EPI) 56 L (>=60) BUN/Creatinine Ratio 28.64 H (12.00-20.00) Ratio POC Glucose (mg/dL) (70-110) mg/dL
[2024-09-07 11:46] LABS: Glucose,Whole Blood 111 mg/dL (70-110)
[2024-09-07 16:43] LABS: Glucose,Whole Blood 161 mg/dL (70-110)
[2024-09-07 19:06] LABS: Glucose,Whole Blood 135 mg/dL (70-110)
--- NOTE | 2024-09-07 19:42 | P.PN ---
Subjective Progress Note Date: 09/07/24 This is a pleasant 64-year-old female who was recently admitted with increased shortness of breath with COPD exacerbation. Patient has multiple hospitalizations due to significant COPD with acute on chronic hypoxic respiratory failure. Patient chronically wears 4 L outpatient. Patient follows with pulmonary outpatient and is currently maintained on DuoNebs [id number] along with inhalers and has been transitioned to oral prednisone. Patient continues to report significant shortness of breath and oxygen desaturating into the 70s and 80s overnight requiring increasing oxygen in a.m. Patient reports she feels extremely short of breath with minimal exertion. Patient has been attempting to get up and walk more frequently. Patient denies any nausea or vomiting and has been tolerating diet. Patient reports is having bowel movements with no reports of constipation. 09/07/2024 Patient is seen in follow-up today with no acute overnight issues noted other than continued shortness of breath with increasing oxygen demands. Patient is on 5 L today and reports of weakness and not getting up as frequently as she should. Discussed with nursing staff about walking the patient frequently and encourage sitting up in the chair more frequently. Patient is afebrile continues with shortness of breath which is chronic and will plan for possible discharge planning in the next 24 hours. Patient has had multiple hospitalizations regarding her significant COPD and is extremely high risk for rehospitalization. Review of systems: Constitutional: No reports of fatigue, fever, or chills Cardiovascular: No reports of chest pain or palpitations Respiratory: reports of continued shortness of breath with minimal exertion, continued occasional cough GI: No reports of nausea, no reports of vomiting, reports having bowel movements : No reports of dysuria or retention Neurovascular: reports of generalized weakness due to her significant shortness of breath and reports has not been up much walking All medications have been reviewed Elderly appearing, chronically ill-appearing PHYSICAL EXAMINATION: GENERAL: The patient is alert and oriented x4, Well developed, well nourished. HEENT: Pupils are round and equally reacting to light. EOMI. no scleral icterus. No conjunctival pallor. Normocephalic, atraumatic. No pharyngeal erythema. No thyromegaly. CARDIOVASCULAR: S1 and S2 muffled PULMONARY: diminished breath sounds bilaterally with faint expiratory with no wheezing. Continue course scattered rhonchi noted. ABDOMEN: soft. Nontender on exam. obese. non-distended, normoactive bowel sounds. No palpable organomegaly. MUSCULOSKELETAL: No joint swelling or deformity. EXTREMITIES: No cyanosis, clubbing, or pedal edema. NEUROLOGICAL: Gross neurological examination did not reveal any focal deficits. Diffuse weakness SKIN: No rashes. Assessment: Chronic obstructive acute exacerbation, acute on chronic hypoxic respiratory failure with acute tracheobronchitis with no evidence of pneumonia Acute on chronic hypoxic respiratory failure, chronically wears 4 L outpatient Gastroesophageal reflux disease Congestive heart failure ruled out Hyperlipidemia History of sleep apnea History of severe anxiety History of kidney cancer with right nephrectomy History of IBS GI prophylaxis DVT prophylaxis Full code Plan: Recommend to continue with current medications and management with pulmonary following. Patient is maintained on [id number] DuoNeb treatments along with 5 L this morning as patient was having increasing shortness of breath. Wean FiO2 as tolerated as patient wears 4 to 4-1/2 L at home. Pulmonary following and has transition to oral prednisone recommending outpatient follow-up as patient is most likely at her baseline Continue with increasing activity as tolerated adding the patient to sit up in the chair more often and get up and walk around. Patient reports she feels significantly weak and unsafe going home. Discussed with nursing staff to walk the patient frequently and sitting out of the bed with all meals. Patient continues to report significant shortness of breath with minimal exertion and is desatting quickly taking longer to recover and does not feel ready or safe for discharge. Again discussed her overall prognosis and will monitor overnight to discuss possible discharge planning in the next 24 hours The impression and plan of care has been dictated by Peri Mg, nurse practitioner as directed. Dr. Monico MD I have performed a history and examination and MDM of this patient, discussed the same with the dictator, and agree with the dictator's assessment and plan as written ,documented as a scribe. Based on total visit time, I have performed more than 50% of the visit. Any additional findings or plans will be noted. Objective - Vital Signs Vital signs: Vital Signs Temp 98.3 F 09/07/24 00:50 Pulse 80 09/07/24 08:30 Resp 20 09/07/24 00:50 BP 127/85 09/07/24 05:50 Pulse Ox 90 L 09/07/24 08:07 FiO2 Intake & Output 09/06/24 09/07/24 09/07/24 18:59 06:59 18:59 Intake Total 500 480 Output Total 400 Balance 100 480 Intake: Oral 500 480 Output: Urine 400 Other: Voiding Method Bedside Commode # Voids 3 # Bowel Movements 1 - Labs CBC & Chem 7: 09/06/24 03:24 09/06/24 03:24 Labs: Abnormal Lab Results - Last 24 Hours (Table) 09/06/24 09/06/24 Range/Units 03:24 16:51 WBC 16.64 H (4.50-10.00) X 10*3/uL MCV 102.7 H (80.0-97.0) FL MCHC 30.3 L (32.0-37.0) g/dL MPV 12.6 H (9.5-12.2) FL Neutrophils # (Manual) 10.65 H (1.80-7.70) X 10*3/uL Monocytes # (Manual) 1.16 H (0.20-1.00) X 10*3/uL Eosinophils # (Manual) 0 L (0.04-0.35) X 10*3/uL NRBC/100 WBC Diff 0.04 H (0.00-0.01) X 10*3/uL POC Glucose (mg/dL) 165 H (70-110) mg/dL
[2024-09-07 20:41] LABS: Glucose,Whole Blood 207 mg/dL (70-110)
[2024-09-08 06:13] LABS: Glucose,Whole Blood 79 mg/dL (70-110)
--- NOTE | 2024-09-08 09:56 | P.PN ---
Subjective Progress Note Date: 09/08/24 This is a pleasant 64-year-old female who was recently admitted with increased shortness of breath with COPD exacerbation. Patient has multiple hospitalizations due to significant COPD with acute on chronic hypoxic respiratory failure. Patient chronically wears 4 L outpatient. Patient follows with pulmonary outpatient and is currently maintained on DuoNebs [id number] along with inhalers and has been transitioned to oral prednisone. Patient continues to report significant shortness of breath and oxygen desaturating into the 70s and 80s overnight requiring increasing oxygen in a.m. Patient reports she feels extremely short of breath with minimal exertion. Patient has been attempting to get up and walk more frequently. Patient denies any nausea or vomiting and has been tolerating diet. Patient reports is having bowel movements with no reports of constipation. 09/07/2024 Patient is seen in follow-up today with no acute overnight issues noted other than continued shortness of breath with increasing oxygen demands. Patient is on 5 L today and reports of weakness and not getting up as frequently as she should. Discussed with nursing staff about walking the patient frequently and encourage sitting up in the chair more frequently. Patient is afebrile continues with shortness of breath which is chronic and will plan for possible discharge planning in the next 24 hours. Patient has had multiple hospitalizations regarding her significant COPD and is extremely high risk for rehospitalization. 09/08/2024 Patient is seen in follow-up today having significant anxiety with shortness of breath with exertion. Patient has been up and walking and encouraged patient to continue to do so and sitting up in the chair with all meals. Patient is extremely concerned and anxious about going home due to the weather and patient having no air in her apartment and multiple steps to get up to and fearful she will just return right to the emergency room. Patient will be monitored ove rnight continue on current regimen and will be planning on discharge in 24 hours. Patient will continue a prednisone taper at discharge and has been transition to oral prednisone. Review of systems: Constitutional: No reports of fatigue, fever, or chills Cardiovascular: No reports of chest pain or palpitations Respiratory: reports of continued shortness of breath with minimal exertion, continued occasional cough GI: No reports of nausea, no reports of vomiting, reports having bowel movements : No reports of dysuria or retention Neurovascular: reports of generalized weakness due to her significant shortness of breath and reports has not been up much walking All medications have been reviewed Elderly appearing, chronically ill-appearing PHYSICAL EXAMINATION: GENERAL: The patient is alert and oriented x4, Well developed, well nourished. HEENT: Pupils are round and equally reacting to light. EOMI. no scleral icterus. No conjunctival pallor. Normocephalic, atraumatic. No pharyngeal erythema. No thyromegaly. CARDIOVASCULAR: S1 and S2 muffled PULMONARY: diminished breath sounds bilaterally with faint expiratory wheezing which appears chronic. Continue course scattered rhonchi noted. ABDOMEN: soft. Nontender on exam. obese. non-distended, normoactive bowel sounds. No palpable organomegaly. MUSCULOSKELETAL: No joint swelling or deformity. EXTREMITIES: No cyanosis, clubbing, or pedal edema. NEUROLOGICAL: Gross neurological examination did not reveal any focal deficits. Diffuse weakness SKIN: No rashes. Assessment: Chronic obstructive acute exacerbation, acute on chronic hypoxic respiratory failure with acute tracheobronchitis with no evidence of pneumonia Acute on chronic hypoxic respiratory failure, chronically wears 4 L outpatient Gastroesophageal reflux disease Congestive heart failure ruled out Hyperlipidemia History of sleep apnea History of severe anxiety History of kidney cancer with right nephrectomy History of IBS GI prophylaxis DVT prophylaxis Full code Plan: Recommend to continue with current medications and management with pulmonary following. Patient is maintained on [id number] DuoNeb treatments along with 4.5 L this morning as patient was having increasing shortness of breath. Wean FiO2 as tolerated as patient wears 4 to 4-1/2 L at home. Discussed with nursing staff about leaving oxygen at 4-1/2 L without titrating up as oxygen saturations are above 90% on this. Pulmonary following and has transitioned to oral prednisone recommending outpatient follow-up as patient is most likely at her baseline Continue with increasing activity as tolerated adding the patient to sit up in the chair more often and get up and walk around. Patient reports she feels significantly weak and unsafe going home. Patient is having extreme concerns with the heat and having no air in her home and fearful she will just return right to the emergency department. Discussed with nursing staff to continue to walk the patient frequently and sitting out of the bed with all meals. Patient continues to report significant shortness of breath with minimal exertion and is desatting quickly taking longer to recover and does not feel ready or safe for discharge. Again discussed her overall prognosis and will monitor overnight to discuss possible discharge planning in the next 24 hours The impression and plan of care has been dictated by Peri Mg, nurse practitioner as directed. Dr. Monico MD I have performed a history and examination and MDM of this patient, discussed the same with the dictator, and agree with the dictator's assessment and plan as written ,documented as a scribe. Based on total visit time, I have performed more than 50% of the visit. Any additional findings or plans will be noted. Objective - Vital Signs Vital signs: Vital Signs Temp 98.2 F 09/08/24 09:37 Pulse 88 09/08/24 09:52 Resp 15 09/08/24 09:37 BP 115/77 09/08/24 09:37 Pulse Ox 91 L 09/08/24 09:42 FiO2 Intake & Output 09/07/24 09/08/24 09/08/24 18:59 06:59 18:59 Intake Total 600 360 Output Total 400 Balance 600 360 -400 Intake: Oral 600 360 Output: Urine 400 Other: Voiding Method Bedside Commode Bedside Commode Bedside Commode # Voids 3 3 - Labs CBC & Chem 7: 09/06/24 03:24 09/06/24 03:24 Labs: Abnormal Lab Results - Last 24 Hours (Table) 09/07/24 09/07/24 09/07/24 Range/Units 11:44 16:41 19:04 POC Glucose (mg/dL) 111 H 161 H 135 H (70-110) mg/dL 09/07/24 Range/Units 20:40 POC Glucose (mg/dL) 207 H (70-110) mg/dL
[2024-09-08 11:54] LABS: Glucose,Whole Blood 128 mg/dL (70-110)
[2024-09-08 16:10] LABS: Glucose,Whole Blood 120 mg/dL (70-110)
[2024-09-08 20:38] LABS: Glucose,Whole Blood 112 mg/dL (70-110)
[2024-09-09 06:14] LABS: Glucose,Whole Blood 79 mg/dL (70-110)
[2024-09-09 14:48] VITALS: BP 123/77; PULSE 102; RESP 20; TEMP 98.7
--- NOTE | 2024-09-09 19:45 | P.PN ---
Subjective Progress Note Date: 09/09/24 On today's evaluation of 09/09/2024, the patient is being seen for a follow-up. Overall condition stable. Continues to have some cough and congestion yet the patient has been adequately treated over the past 1 week and she remains on oxygen 4 L/min nasal cannula. She continues to do aggressive pulmonary toileting. She is on DuoNeb the right seems on the clock. She is also on oral prednisone. A bit nervous and anxious. Otherwise, no other new complaints for now. No signs of any CO2 narcosis. No chest pain. No pleurisy or hemoptysis. No significant swelling in lower extremities. Most recent labs were reviewed and no labs over the past 24 to 48 hours. The patient is being considered for d ischarge today to be followed up on outpatient basis. She will be discharged home on a combination performance of Pulmicort nebulized treatments twice a day and DuoNeb nebulized treatments [id number] and albuterol HFA as needed. She will also complete a prednisone burst taper. Objective - Vital Signs Vital signs: Vital Signs Temp 98.7 F 09/09/24 14:00 Pulse 102 H 09/09/24 14:00 Resp 20 09/09/24 14:00 BP 123/77 09/09/24 14:00 Pulse Ox 90 L 09/09/24 14:00 FiO2 Intake & Output 09/08/24 09/09/24 09/09/24 18:59 06:59 18:59 Intake Total 750 480 Output Total 400 400 Balance 350 80 Intake: Oral 750 480 Output: Urine 400 400 Other: Voiding Method Bedside Commode Toilet Toilet # Voids 3 3 - Exam GENERAL EXAM: Alert, 64-year-old female, appears older than stated age, sitting up in bed, on 4-5 L nasal cannula, in no apparent distress. HEAD: Normocephalic. EYES: Normal reaction of pupils, equal size. NOSE: Clear with pink turbinates. THROAT: No erythema or exudates. NECK: No masses, no JVD. CHEST: No chest wall deformity. LUNGS: Equal air entry with bilateral end expiratory wheeze, diminished. CVS: S1 and S2 normal with no audible murmur, regular rhythm. ABDOMEN: No hepatosplenomegaly, normal bowel sounds, no guarding or rigidity. SPINE: No scoliosis or deformity SKIN: No rashes CENTRAL NERVOUS SYSTEM: No focal deficits, tone is normal in all 4 extremities. EXTREMITIES: There is no peripheral edema. No clubbing, no cyanosis. Peripheral pulses are intact. - Labs CBC & Chem 7: 09/06/24 03:24 09/06/24 03:24 Labs: Abnormal Lab Results - Last 24 Hours (Table) 09/08/24 09/08/24 Range/Units 16:08 20:36 POC Glucose (mg/dL) 120 H 112 H (70-110) mg/dL Assessment and Plan Plan: Acute on chronic hypoxic respiratory failure secondary to acute exacerbation chronic obstructive pulmonary disease, stable for now on 4 L of oxygen by nasal cannula. Severe stage III chronic obstructive pulmonary disease with FEV1 value of 40% of predicted Chronic hypoxemic respiratory failure on home oxygen Frequent readmissions to the hospital for COPD exacerbations most recently disc harged August 06, 2024 History of gastroesophageal reflux disease Hyperlipidemia Obstructive sleep apnea Hydronephrosis status post right nephrectomy History of anxiety/depression Former heavy tobacco dependence History of compression fracture of thoracic and upper lumbar spine Plan: The patient is feeling well, stable for now Currently on 4-5 L nasal cannula Titrate down the FiO2 as tolerated Continue DuoNeb inhalations Continue Pulmicort and Perforomist inhalations, to be also continued on outpatient basis Prednisone burst taper Discharge home to be followed up on outpatient basis
== END 2024-09-09 15:06 | disposition home health service (06) | DRG 190 ==
LOC: EC 01:57 → 6NMEDSUR 04:10 → OBSVTOIN 04:10 → 6NMEDSUR 06:45 → 4SSUR 08:14
PROVIDERS: ADMIT Hospitalist; ATTEND Hospitalist
DX: J44.1 Chronic obstructive pulmonary disease with (acute) exacerbation (principal); J96.21 Acute and chronic respiratory failure with hypoxia; F31.9 Bipolar disorder, unspecified; J44.0 Chronic obstructive pulmonary disease with (acute) lower respiratory infection; M48.54XA Collapsed vertebra, not elsewhere classified, thoracic region, initial encounter for fracture; M48.56XA Collapsed vertebra, not elsewhere classified, lumbar region, initial encounter for fracture; N13.30 Unspecified hydronephrosis; K21.9 Gastro-esophageal reflux disease without esophagitis; E78.5 Hyperlipidemia, unspecified; F41.9 Anxiety disorder, unspecified; G47.33 Obstructive sleep apnea (adult) (pediatric); J20.9 Acute bronchitis, unspecified; Z99.81 Dependence on supplemental oxygen; Z79.890 Hormone replacement therapy; Z79.899 Other long term (current) drug therapy; Z90.5 Acquired absence of kidney; Z85.528 Personal history of other malignant neoplasm of kidney; Z87.891 Personal history of nicotine dependence; Z87.19 Personal history of other diseases of the digestive system
CPT/HCPCS: 36415; 71045; 71046; 80048; 80053; 83036; 83735; 83880; 84484; 85025; 85610; 85730; 93005; 94640; 94760; 96374; 99285